=== PATIENT | male | born 1965 | race Caucasian/White ===

== ENCOUNTER 2017-12-15 12:40 | Inpatient (IN) | payer MEDICARE ==
--- NOTE | 2017-12-15 12:51 | ED ---
Complex/Multi-Sys Presentation - HPI Summary HPI Summary: This is jennifer Quiroz documenting for attending Calixto Jimenez MD. Patient is a 52 y/o M w/ a multitude of complaints and states he is "a mess". He states he wants to get his right leg amputated but he is unable to get cleared for surgery by his PCP. He has had a below knee left side amputation and reports an infection from this area, "up to his face". Patient claims he has been dealing with this infection for "2-3 years". He notes bruising and swelling on his left foot stub. He has not seen the wound clinic. He states left abdominal region is "puffy". He states his eyes and back are, "messed up". He wants revision surgery on his left foot stub and claims he has trouble turning to the left. On triage, pain and is denied and nothing is noted to aggravate/alleviate Sx. He extensively ranted against his PCP and the cost of healthcare. - History Of Current Complaint Chief Complaint: EDGeneral Time Seen by Provider: 12/15/17 12:47 Hx Obtained From: Patient Onset/Duration: Lasting Weeks - infection from his left stub "up to his face" has been present for "2-3 years", Still Present Timing: Constant Severity Currently: None - pain is denied on triage Aggravating Factor(s): nothing Alleviating Factor(s): nothing Associated Signs And Symptoms: Positive: Other - Below knee left side amputation. Infection from left foot stub, "up to his face". Bruising and swelling on his left foot stub. Left abdominal region is "puffy". Eyes and back are, "messed up". Trouble turning to the left. - Allergies/Home Medications Allergies/Adverse Reactions: Allergies Allergy/AdvReac Type Severity Reaction Status Date / Time No Known Allergies Allergy Verified 12/15/17 12:56 Home Medications: Home Medications Atorvastatin Calcium [Lipitor] 20 mg PO DAILY 12/15/17 [History Confirmed ] Lisinopril 20 mg PO DAILY 12/15/17 [History Confirmed 12/15/17] Metformin HCl 1,000 mg PO BID 12/15/17 [History Confirmed 12/15/17] Oxycodone HCl 5 mg PO Q8HR 12/15/17 [History Confirmed 12/15/17] PMH/Surg Hx/FS Hx/Imm Hx Endocrine/Hematology History: Reports: Hx Diabetes Cardiovascular History: Reports: Hx Hypertension Respiratory History: Reports: Hx Chronic Obstructive Pulmonary Disease (COPD), Hx Sleep Apnea - ?? History: Reports: Other Problems/Disorders - PROBLEMS WITH KIDNEYS AFTER HAVING LEFT FOOT AMPUTATION Musculoskeletal History: Reports: Hx Arthritis - BACK, Other Musculoskeletal History - HAND SORENESS Sensory History: Denies: Hx Contacts or Glasses, Hx Hearing Aid Opthamlomology History: Denies: Hx Contacts or Glasses - Surgical History Surgery Procedure, Year, and Place: 2011-LEFT FOOT AMPUTATION-[facility]. DENTAL SURGERY A CHILD Hx Anesthesia Reactions: Yes - UNABLE TO WALK FOR 3 DAYS AFTER SURGERY A CHILD. NO PROB. IN 2011 Infectious Disease History: No Infectious Disease History: Denies: Traveled Outside the [place] in Last 30 Days - Family History Known Family History: Negative: Blood Disorder - Social History Lives: Alone Substance Use Type: Reports: Marijuana Review of Systems Positive: Other - Eyes are "messed up" Positive: Other - Left side abdominal region is "puffy" Positive: Other - Infection from left foot stub, "up to his face". Bruising and swelling on his left foot stub. Back is "messed up". Trouble turning to the left. All Other Systems Reviewed And Are Negative: Yes Physical Exam - Summary Physical Exam Summary: Appearance: The patient is morbidly obese in no acute distress and in no acute pain. Skin: The skin is warm and dry and skin color reflects adequate perfusion. Necrotic and open areas on left stub. HEENT: The head is normocephalic and atraumatic. The pupils are equal and reactive. The conjunctivae are clear and without drainage. Nares are patent and without drainage. Mouth reveals moist mucous membranes and the throat is without erythema and exudate. The external ears are intact. The ear canals are patent and without drainage. The tympanic membranes are intact. Neck: The neck is supple with full range of motion and non-tender. There are no carotid bruits. There is no neck vein distension. Respiratory: Chest is non-tender. Lungs are clear to auscultation and breath sounds are symmetrical and equal. Cardiovascular: Heart is regular rate and rhythm. There is no murmur or rub auscultated. Pulses are symmetrical and equal. Swelling and weeping areas of right foot. Abdomen: The abdomen is soft and non-tender. There are normal bowel sounds heard in all four quadrants and there is no organomegaly palpated. Musculoskeletal: There is no back tenderness noted. Extremities are non-tender with full range of motion. There is good capillary refill. There is no calf tenderness elicited. Patient is status post below knee left amputation. Swelling , erythematous, and weeping areas of right foot. Erythematous and open, weeping areas on left side of abdomen. Neurological: Patient is alert and oriented to person, place and time. The patient has symmetrical motor strength in all four extremities. Cranial nerves are grossly intact. Deep tendon reflexes are symmetrical and equal in all four extremities. Psychiatric: The patient has an appropriate affect and does not exhibit any anxiety or depression. Triage Information Reviewed: Yes Vital Signs On Initial Exam: Initial Vitals Temp Pulse Resp BP Pulse Ox 97.8 F 95 18 158/113 82 12/15/17 12:43 12/15/17 12:43 12/15/17 12:43 12/15/17 12:43 12/15/17 12:43 Vital Signs Reviewed: Yes Diagnostics - Vital Signs Vital Signs Temp Pulse Resp BP Pulse Ox 12/15/17 12:43 97.8 F 95 18 158/113 82 - Laboratory Result Diagrams: 12/15/17 13:28 12/15/17 13:28 Lab Statement: Any lab studies that have been ordered have been reviewed, and results considered in the medical decision making process. - Radiology CXR Xray Interpretation: No Acute Changes Radiology Interpretation Completed By: Radiologist - No active cardiopulmonary disease is noted. Cardiomegaly is noted. This report was reviewed by ED physician. Left Ankle X-ray Xray Interpretation: Positive (See Comments) Radiology Interpretation Completed By: Radiologist - Postoperative changes with amputation. Soft tissues swelling is noted at the amputation sites. Heterotropic ossification is noted unchanged from March 17, 2015. This report was reviewed by ED physician. Right Foot X-ray Xray Interpretation: Positive (See Comments) Radiology Interpretation Completed By: Radiologist - Osteopenia with no evidence of focal osteopenia. Postoperative changes at the great toe with amputation of the third digit. This report was reviewed by ED physician. Complex Multi-Symp Course/Dx Course Of Treatment: Mr. Xavier presented to the emergency department with clear medical problems. He has infection in the stump of his left leg and in his right foot. He possibly has an infection in the skin on the left side of his abdomen. His labs are remarkable only for a left shift with an ANC of 8. It's unclear whether he is able to take care of himself at home. He lives alone and tells me that he basically just lays in bed all day getting up only to go to the bathroom. He says he has not been eating except when his neighbor brings over some food. I asked the hospitalist to evaluate him for admission. - Diagnoses Provider Diagnoses: Cellulitis - Physician Notifications Discussed Care Of Patient With: Adolph Marlow Time Discussed With Above Provider: 14:47 Instructed by Provider To: Other - Dr. Marlow was called at 14:47 to discuss patient's case. Dr. Marlow will come to ED to see patient and further consult on case. 15:14 -- Patient's case was discussed. Dr. Marlow will see patient and make decision to admit 15:45 -- Dr. Marlow accepts patient for admission to hospital. Discharge - Sign-Out/Discharge Documenting (check all that apply): Patient Departure - admit - Discharge Plan Condition: Good Disposition: ADMITTED TO [facility] - Billing Disposition and Condition Condition: GOOD Disposition: Admitted to [facility]
[2017-12-15 13:35] LABS: ABS Basophils 0.1 10^3/ul (0-0.2); ABS Eosinophils 0 10^3/ul (0-0.6); ABS Lymphocytes 0.5 10^3/ul (1.0-4.8); ABS Monocytes 0.8 10^3/ul (0-0.8); ABS Neutrophils 8.1 10^3/ul (1.5-7.7); ABS Nucleated RBC 0 10^3/ul; Eosinophil % 0.4 % (0-6); Hematocrit 46 % (42-52); Hemoglobin 14.6 g/dl (14.0-18.0); Lymphocyte % 5.6 % (25-47); Mean Corpuscular HGB Conc 32 g/dl (31-36); Mean Corpuscular Hemoglobin 29 pg (27-31); Mean Corpuscular Volume 92 fL (80-94); Mean Platelet Volume 8.1 um3 (7.4-10.4); Nucleated Red Blood Cells % 0; Platelet Count 224 10^3/ul (150-450); Red Blood Count 5.03 10^6/ul (4.00-5.40); Red Cell Distribution Width 18 % (10.5-15); White Blood Count 9.5 10^3/ul (3.5-10.8)
[2017-12-15 13:45] LABS: INR 1.08 (0.77-1.02)
[2017-12-15 13:52] LABS: EGFR Non-African American 83.9 (>60)
--- NOTE | 2017-12-15 14:11 | RAD ---
Indication: Shortness of breath. Single frontal view of the chest performed at 1316 hours was reviewed. Comparison is made with previous exam dated March 22, 2015. No mediastinal shift is noted. Cardiomegaly is noted. Prominent pulmonary arteries is noted which is unchanged from previous exam. IMPRESSION: NO ACTIVE CARDIOPULMONARY DISEASE IS NOTED. CARDIOMEGALY IS NOTED.
--- NOTE | 2017-12-15 14:13 | RAD ---
Indication: Evaluate for osteomyelitis. 2 views of left ankle demonstrates osteopenia. Presumed amputation of the tibial talar joint is noted. Soft tissue swelling is noted at the stump. Heterotopic ossification is noted. Overall appearance appears to be similar to that noted on March 17, 2015. IMPRESSION: Postoperative changes with amputation. Soft tissue swelling is noted at the amputation site. Heterotopic ossification is noted unchanged from March 17, 2015.
--- NOTE | 2017-12-15 14:16 | RAD ---
Indication: Osteomyelitis. 3 views of the right foot demonstrates osteopenia. There is amputation of the distal phalanx of the great toe, amputation of the third phalanx. No focal osteopenia is noted. There may be some lateral displacement of the second proximal phalanx. IMPRESSION: Osteopenia with no evidence of focal osteopenia. Postoperative changes at the great toe with amputation of the third digit.
[2017-12-15] MEDS ORDERED: Morphine INJ* 2 MG/ML 1 ML SYRINGE (TWO MG - NEW SYRINGE VERSION) IV PRN (16:08)
[2017-12-15] MEDS ORDERED: Ondansetron INJ* 2 MG/ML VIAL IV PRN (16:08)
[2017-12-15] MEDS ORDERED: Acetaminophen TAB* 325 MG PO PRN (16:08)
[2017-12-15] MEDS ORDERED: Vancomycin(*) 2,000 MG in NS 0.9% 500 ML* 500 ML IVPB ONE (16:12)
[2017-12-15] MEDS ORDERED: NS 0.9% 1000 ML* 1,000 ML IV SCH (16:15)
[2017-12-15] MEDS ORDERED: Vancomycin per Pharmacy* NOTE FOLLOW UP SCH (17:00)
[2017-12-15] MEDS: Aspirin 81 mg CHEW TAB* 81 MG TAB.CHEW PO SCH (17:57)
[2017-12-15] MEDS: Losartan TAB* 25 MG PO SCH (17:57)
[2017-12-15] MEDS ORDERED: Furosemide IV* 10 MG/ML VIAL (40 MG) IV ONE (20:00)
[2017-12-15] MEDS: metFORMIN* 1,000 MG TAB PO SCH (21:10)
[2017-12-15] MEDS: Heparin VIAL(*) 5000 UNITS/ML VIAL (FIVE THOUSAND) SUBCUT SCH (21:12)
[2017-12-15] MEDS: oxyCODONE TAB* 5 MG TAB PO PRN (21:18)
[2017-12-16] MEDS: Nystatin TOP POWDER* 15 GM BTL TOPICAL SCH ×4 (00:49→22:21)
[2017-12-16] MEDS: Vancomycin(*) 1,000 MG in NS 0.9% 250 ML* 250 ML IVPB SCH ×4 (02:55→19:41)
[2017-12-16] MEDS: Heparin VIAL(*) 5000 UNITS/ML VIAL (FIVE THOUSAND) SUBCUT SCH ×3 (05:55→22:22)
[2017-12-16] MEDS: Losartan TAB* 25 MG PO SCH (09:00)
[2017-12-16] MEDS: Atorvastatin* 20 MG TAB PO SCH (09:00)
[2017-12-16] MEDS: Aspirin 81 mg CHEW TAB* 81 MG TAB.CHEW PO SCH (09:00)
[2017-12-16] MEDS: metFORMIN* 1,000 MG TAB PO SCH ×2 (09:00→22:22)
--- NOTE | 2017-12-16 13:39 | CONS ---
CC: Dr. Kyle Rico, [facility] * CONSULTATION REPORT: DATE OF CONSULT: 12/16/17 REFERRING PROVIDER: Dr. Adolph Marlow. REASON FOR CONSULTATION: Chronic left lower extremity amputation site ulceration and superficial abrasions to the right foot. HISTORY OF PRESENT ILLNESS: Mr. Jose Xavier is a 52-year-old gentleman who is morbidly obese with BMI of 70, who has been hospitalized several times in the last 5 to 6 years with lower extremity infection. He had seen Dr. Quintero in 2011 where he underwent a Syme's amputation of the left foot secondary to apparent osteomyelitis. It should be noted that he had ABIs at that time, which showed normal values as well as normal waveforms in the foot. In addition, about a year later he underwent amputation of the distal portion of his right great toe as well as the right third toe for osteomyelitis and this was subsequently healed. He states he has been having chronic ulceration along the lateral aspect of the stump of the left lower extremity. He does have a prosthesis which he uses to ambulate minimally around the house but he has not been able to wear this over the past several months due to swelling and redness in the leg. He presented to the emergency room yesterday with complaints of inability to care for himself. He does live alone, does have a neighbor who brings food at times. He has an uxt-cl-evben wheelchair but he apparently does not get out of the home much. He denies fever, shakes, or chills. PAST MEDICAL HISTORY: 1. Morbid obesity with a BMI of 70. 2. Hypertension. 3. Mwg-nqggjuw-dwnpkxfug diabetes. MEDICATIONS: At home include: 1. Oxycodone. 2. Metformin. 3. Lisinopril. 4. Lipitor. SOCIAL HISTORY: He lives alone. He denies use of alcohol. He does use marijuana occasionally. PHYSICAL EXAM: He is a morbidly obese male, appears to be in no apparent distress. In the left lower extremity, he has a distal leg amputation stump. There is chronic hypertrophied skin mainly along the central and lateral aspects and there were some cracked and dry skin with an opening without evidence of tracking or purulence. There is mild erythema in the area and the both lower extremities are swollen. In the right foot, there is the healed amputation sites on the first and third toes and some superficial abrasion on the dorsum of the foot without signs of infection. Likewise, there is a small area of irritation over the great toe amputation site without signs of infection, tracking, abscess, or cellulitis. I do not appreciate palpable pulses in the right foot. DIAGNOSTIC STUDIES: X-ray on the right foot showed the amputation sites without evidence of osteomyelitis or subcutaneous air. Likewise, the left lower extremity site showed osteopenia with some heterotopic calcification of the soft tissue but no evidence of osteomyelitis, subcutaneous gas, or other acute abnormality. IMPRESSION: 1. Morbid obesity with medical problems as above. 2. History of amputations on both lower extremities including a Syme's amputation of the left foot. Apparently, he has had a chronic nonhealing ulceration with hypertrophy and worsening of the skin disease over the past several years. He was seeing Dr. Quintero in the past but he has not seen him for the last 2 years and I do not have these records. PLAN: 1. He has been placed on vancomycin as swabs taken from the left foot show MRSA. There does not appear to be abscess or undrained fluid collection on either lower extremity at this point that would require operative debridement. Obviously, the chronic open ulceration on the amputation site of the left leg is difficult to heal and certainly he should not wear his prosthesis at this point; however, I am not certain how much he has been using or ambulating in the last year or so. 2. I will write wound care orders for both the left and the right lower extremity. 3. I discussed his care with Dr. Quintero tomorrow. Thank you very much for this consultation. [id number]/[facility] #: [id number] MELISSA
[2017-12-16 18:50] LABS: Urine Appearance Cloudy; Urine Blood 3+ (Negative); Urine Color Amber; Urine Ketones Negative (Negative); Urine Protein 2+(100 mg/dL) (Negative); Urine Red Blood Cell 3+(>10/hpf) (Absent); Urine Specific Gravity 1.023 (1.010-1.030); Urine Urobilinogen Positive (Negative); Urine White Blood Cell Trace(0-5/hpf) (Absent)
[2017-12-16] MEDS ORDERED: Vancomycin Trough Check NOTE FOLLOW UP ONE (19:30)
[2017-12-16 19:44] LABS: ABS Basophils 0 10^3/ul (0-0.2); ABS Eosinophils 0.1 10^3/ul (0-0.6); ABS Lymphocytes 0.6 10^3/ul (1.0-4.8); ABS Monocytes 0.7 10^3/ul (0-0.8); ABS Neutrophils 5.3 10^3/ul (1.5-7.7); ABS Nucleated RBC 0 10^3/ul; Eosinophil % 1.9 % (0-6); Hematocrit 46 % (42-52); Hemoglobin 14.5 g/dl (14.0-18.0); Lymphocyte % 9.4 % (25-47); Mean Corpuscular HGB Conc 32 g/dl (31-36); Mean Corpuscular Hemoglobin 29 pg (27-31); Mean Corpuscular Volume 92 fL (80-94); Mean Platelet Volume 8.2 um3 (7.4-10.4); Nucleated Red Blood Cells % 0; Platelet Count 165 10^3/ul (150-450); Red Blood Count 5.01 10^6/ul (4.00-5.40); Red Cell Distribution Width 18 % (10.5-15); White Blood Count 6.8 10^3/ul (3.5-10.8)
[2017-12-17] MEDS: Vancomycin(*) 1,000 MG in NS 0.9% 250 ML* 250 ML IVPB SCH ×4 (02:10→20:15)
[2017-12-17] MEDS: Heparin VIAL(*) 5000 UNITS/ML VIAL (FIVE THOUSAND) SUBCUT SCH ×3 (05:01→20:19)
[2017-12-17] MEDS: Losartan TAB* 25 MG PO SCH (09:47)
[2017-12-17] MEDS: Atorvastatin* 20 MG TAB PO SCH (09:47)
[2017-12-17] MEDS: metFORMIN* 1,000 MG TAB PO SCH ×2 (09:48→20:15)
[2017-12-17] MEDS: Aspirin 81 mg CHEW TAB* 81 MG TAB.CHEW PO SCH (09:48)
[2017-12-17] MEDS: Nystatin TOP POWDER* 15 GM BTL TOPICAL SCH ×3 (09:50→20:17)
--- NOTE | 2017-12-17 14:03 | CONS ---
CONSULTATION REPORT: DATE OF CONSULT: 12/17/17 REQUESTING PHYSICIAN: Dr. Marlow. CONSULTING SERVICE: Infectious Disease. REASON FOR CONSULTATION: Left ankle ulcer. IMPRESSION: 1. History of left ankle Syme surgery with a chronic non-pressure related ulcer , surrounding cellulitis, and the wound culture is growing Staphylococcus aureus , morganella, and klebsiella. The PCR is positive for MRSA. I think staph is the primary pathogen here, as he is improving on vancomycin alone. 2. Morbid obesity. 3. Diabetes, insulin-dependent. RECOMMENDATION: We will continue vancomycin to cover the soft tissue component of the infection. There is not significant drainage or fluctuance with regard to superficial abscess. The ulcer is not over a bony prominence. I think Surgery or Orthopedics is going to evaluate his amputation site as well. HISTORY OF PRESENT ILLNESS: This is a 52-year-old man with super morbid obesity and a history of left foot amputation in 2011, which he had tolerated well, but subsequently developed an ulceration over this come and go. Over the last 2 weeks, he has had increasing edema in the left leg, which he believes contributed to difficulty wearing his prosthesis and ulcer reopening. He had some redness and drainage there. He was feeling malaise, so he came to the hospital. He had no fever, he had no leukocytosis, he had a swab of the cellulitic wound that came back with results as above. He is on vancomycin tolerating that well. The erythema has largely resolved. He has almost no drainage. He is having diuretic therapy and improvement in the swelling in his leg. PAST MEDICAL HISTORY: 1. Super morbid obesity. 2. Insulin-dependent diabetes. 3. History of foot wounds and left foot osteomyelitis, status post Syme surgery on the left in 2011, and partial amputation of the right great toe and disarticulation of the right third toe in 2012. MEDICATIONS: 1. Tylenol. 2. Aspirin. 3. Lipitor. 4. Heparin subcutaneous injection. 5. Losartan. 6. Metformin. 7. Vancomycin 1 g every 6 hours. ALLERGIES: No known drug allergies. FAMILY HISTORY: No recurrent infections. SOCIAL HISTORY: Lives in [place], has no travel or sick contacts. REVIEW OF SYSTEMS: All negative except as noted above in the history of present illness. PHYSICAL EXAM: Vital Signs: Temperature 36.4, heart rate 80, respiratory rate 18, blood pressure 114/68, oxygen saturation 90% on 4 L. In general, he is awake, not in distress. Neurologic: He is oriented x3, follows all commands. HEENT: There is no conjunctival hemorrhage. Oropharynx without lesions. Neck : Neck is supple without mass. Heart has regular rate rhythm without murmurs, rubs, or gallops. Lungs are clear to auscultation bilaterally. Abdomen: Soft, nontender, and nondistended. There are bowel sounds present. Skin: There is no rash or splinter hemorrhage. Musculoskeletal: Left foot is surgically absent. The amputation site is well healed. There is a more proximal 2.5 cm ulceration with underlying granulation tissue, no surrounding erythema. DIAGNOSTIC STUDIES/LAB DATA: White blood cell count 6, hemoglobin 14, platelets 165; creatinine 0.9; CRP was 11. Please see impression and recommendations outlined above. Thank you for asking me to see Mr. Xavier in consultation. [id number]/[facility] #: [id number] MTDD
[2017-12-17] MEDS ORDERED: Furosemide IV* 10 MG/ML VIAL (40 MG) IV ONE (16:09)
--- NOTE | 2017-12-17 16:17 | PN ---
Subjective Date of Service: 12/16/17 Interval History: patient is feeling a bit better than yesterday. medellin in place, at his request to manage his diuresis low sodium diet ordered wound care evaluation appreciated --> patient should follow at the wound [facility]ter after discharge. He is tolerating his antibiotics well. Cellulitis surrounding his lower extremity wound sis decreased. Orbits are still itchy - he rubs his eyes frequently. Will discuss case with Dr. Quintero - orthopedic surgeon who did his LLE amputation. Family History: Unchanged from Admission Social History: Unchanged from Admission Past Medical History: Unchanged from Admission Objective Active Medications: . Acetaminophen (Tylenol Tab*) 650 mg PO Q4H PRN PRN Reason: FEVER/PAIN Aspirin (Aspirin 81 Mg Chew Tab*) 81 mg PO DAILY [facility] Last Admin: 12/17/17 09:48 Dose: 81 mg Atorvastatin Calcium (Lipitor*) 20 mg PO DAILY [facility] Last Admin: 12/17/17 09:47 Dose: 20 mg Furosemide (Lasix Iv*) 40 mg IV ONCE ONE Stop: 12/17/17 16:10 Furosemide (Lasix Iv*) 40 mg IV DAILY [facility] Heparin Sodium (Porcine) (Heparin Vial(*)) 5,000 units SUBCUT Q8HR [facility] Last Admin: 12/17/17 13:00 Dose: Not Given Vancomycin HCl 1,000 mg/ (Sodium Chloride) 250 mls @ 166.667 mls/hr IVPB Q6H [facility] Last Admin: 12/17/17 15:28 Dose: 166.667 mls/hr Losartan Potassium (Cozaar Tab*) 75 mg PO DAILY [facility] Last Admin: 12/17/17 09:47 Dose: 75 mg Metformin HCl (Glucophage*) 1,000 mg PO BID [facility] Last Admin: 12/17/17 09:48 Dose: 1,000 mg Morphine Sulfate (Morphine Inj ((Syringe))*) 2 mg IV Q4H PRN PRN Reason: PAIN - MILD Nystatin (Nystatin Top Powder*) 1 applic TOPICAL TID [facility] Last Admin: 12/17/17 09:50 Dose: 1 applic Ondansetron HCl (Zofran Inj*) 4 mg IV Q4H PRN PRN Reason: NAUSEA/VOMITING Oxycodone HCl (Roxycodone Tab*) 5 mg PO TID PRN PRN Reason: PAIN Last Admin: 12/15/17 21:18 Dose: 5 mg Pharmacy Consult (Vancomycin Per Pharmacy*) 1 note FOLLOW UP .VANC PER PHARMACY [facility] Pharmacy Profile Note (Vancomycin Trough Check) 1 note FOLLOW UP 0800 ONE Stop: 12/18/17 08:01 . Vital Signs - 8 hr 12/17/17 11:00 Temperature 98.3 F Pulse Rate 91 Respiratory 20 Rate Blood Pressure 131/87 (mmHg) O2 Sat by Pulse 86 Oximetry Oxygen Devices in Use Now: Nasal Cannula Appearance: morbidly obese; no distress Eyes: No Scleral Icterus Ears/Nose/Mouth/Throat: Clear Oropharnyx Neck: Trachea Midline Respiratory: Symmetrical Chest Expansion and Respiratory Effort Cardiovascular: NL Sounds; No Murmurs; No JVD Abdominal: NL Sounds; No Tenderness; No Distention Lymphatic: No Cervical Adenopathy Extremities: - - left foot amputation with wound on stump. R foot with superficially infected wounds and surrounding cellulitis improving. Skin: - - multiple tatoos Neurological: Alert and Oriented x 3 Lines/Tubes/Other Access: Clean, Dry and Intact Peripheral IV Nutrition: Taking PO's Result Diagrams: 12/16/17 19:28 12/16/17 19:28 Microbiology and Other Data: Microbiology 12/15/17 13:35 Aerobic Blood Culture - Preliminary Blood Venous No Growth Day 2 Anaerobic Blood Culture - Preliminary No Growth Day 2 12/15/17 13:28 Aerobic Blood Culture - Preliminary Blood Venous No Growth Day 2 Anaerobic Blood Culture - Preliminary No Growth Day 2 12/15/17 13:28 Skin and Soft Tissue MRSA/MSSA (PCR - Final Foot Left Mrsa Positive S.aureus Positive Gram Stain - Final Wound Culture - Preliminary Staphylococcus Aureus Morganella Morganii Klebsiella Oxytoca Assess/Plan/Problems-Billing . Assessment: 52 yo man with MRSA-infected lower extremity ulceration as well as increased lower extremity edema and uncontrolled hypertension. - Patient Problems (1) Infection of wound due to methicillin resistant Staphylococcus aureus (MRSA) Current Visit: Yes Status: Acute Priority: High Code(s): A49.02 - METHICILLIN RESIS STAPH INFECTION, UNSP SITE Comment: - b/l lower extremity wounds - Vancomycin by pharmacy protocol - Surgery (and ortho) consults are appreciated => no surgical intervention at this time (2) Bilateral lower extremity edema Current Visit: Yes Status: Acute Priority: High Code(s): R60.0 - LOCALIZED EDEMA Comment: - Lasix 40 mg IV daily - I/O - low salt diet; nutrition consult (3) Hypertension Current Visit: Yes Status: Acute Priority: High Code(s): I10 - ESSENTIAL ( PRIMARY) HYPERTENSION Comment: - increase ARB dose; add additional agent. IV lasix (4) Morbid obesity with BMI of 70 and over, adult Current Visit: Yes Status: Acute Priority: High Code(s): E66.01 - MORBID ( SEVERE) OBESITY DUE TO EXCESS CALORIES; Z68.45 - BODY MASS INDEX (BMI) 70 OR GREATER, ADULT Comment: - nutrition consult - SW consult
--- NOTE | 2017-12-17 16:26 | PN ---
Subjective Date of Service: 12/17/17 Interval History: . patient is about the same , though he complains "you are not doing anything for me" discussed the various issues being managed and he then seemed satisfied. SW interventions underway wrt insurance and possible KEITH. IV antibiotics continuing IV diuresis going well Ortho & general surgery consults appreciated discussed case with [facility] hospice care sales consultant, Dr. Villalpando, as well --> no change to current treatment. . Family History: Unchanged from Admission Social History: Unchanged from Admission Past Medical History: Unchanged from Admission Objective Active Medications: . Acetaminophen (Tylenol Tab*) 650 mg PO Q4H PRN PRN Reason: FEVER/PAIN Aspirin (Aspirin 81 Mg Chew Tab*) 81 mg PO DAILY [facility] Last Admin: 12/17/17 09:48 Dose: 81 mg Atorvastatin Calcium (Lipitor*) 20 mg PO DAILY [facility] Last Admin: 12/17/17 09:47 Dose: 20 mg Furosemide (Lasix Iv*) 40 mg IV DAILY [facility] Heparin Sodium (Porcine) (Heparin Vial(*)) 5,000 units SUBCUT Q8HR [facility] Last Admin: 12/17/17 13:00 Dose: Not Given Vancomycin HCl 1,000 mg/ (Sodium Chloride) 250 mls @ 166.667 mls/hr IVPB Q6H [facility] Last Admin: 12/17/17 15:28 Dose: 166.667 mls/hr Losartan Potassium (Cozaar Tab*) 75 mg PO DAILY [facility] Last Admin: 12/17/17 09:47 Dose: 75 mg Metformin HCl (Glucophage*) 1,000 mg PO BID [facility] Last Admin: 12/17/17 09:48 Dose: 1,000 mg Morphine Sulfate (Morphine Inj ((Syringe))*) 2 mg IV Q4H PRN PRN Reason: PAIN - MILD Nystatin (Nystatin Top Powder*) 1 applic TOPICAL TID [facility] Last Admin: 12/17/17 16:16 Dose: Not Given Ondansetron HCl (Zofran Inj*) 4 mg IV Q4H PRN PRN Reason: NAUSEA/VOMITING Oxycodone HCl (Roxycodone Tab*) 5 mg PO TID PRN PRN Reason: PAIN Last Admin: 12/15/17 21:18 Dose: 5 mg Pharmacy Consult (Vancomycin Per Pharmacy*) 1 note FOLLOW UP .VANC PER PHARMACY [facility] Pharmacy Profile Note (Vancomycin Trough Check) 1 note FOLLOW UP 0800 ONE Stop: 12/18/17 08:01 . Vital Signs - 8 hr 12/17/17 12/17/17 11:00 15:16 Temperature 98.3 F 97.8 F Pulse Rate 91 88 Respiratory 20 20 Rate Blood Pressure 131/87 133/87 (mmHg) O2 Sat by Pulse 86 98 Oximetry Oxygen Devices in Use Now: Nasal Cannula Appearance: NAd; morbid obesity; dishevelled Eyes: No Scleral Icterus Ears/Nose/Mouth/Throat: Clear Oropharnyx, - - poor oral hygiene Neck: NL Appearance and Movements; NL JVP, - - landmarks obscured by obesity Respiratory: Symmetrical Chest Expansion and Respiratory Effort Cardiovascular: NL Sounds; No Murmurs; No JVD Abdominal: - - MO Lymphatic: No Cervical Adenopathy Extremities: - - b/l le edema noted Skin: - - b/l lower extremity ulcerations - one on left amputation stump, the other on his R foot (dorsum) Neurological: Alert and Oriented x 3 Lines/Tubes/Other Access: Clean, Dry and Intact Painting, Clean, Dry and Intact Peripheral IV Nutrition: Taking PO's Result Diagrams: 12/16/17 19:28 12/16/17 19:28 Microbiology and Other Data: Microbiology 12/15/17 13:35 Aerobic Blood Culture - Preliminary Blood Venous No Growth Day 2 Anaerobic Blood Culture - Preliminary No Growth Day 2 12/15/17 13:28 Aerobic Blood Culture - Preliminary Blood Venous No Growth Day 2 Anaerobic Blood Culture - Preliminary No Growth Day 2 12/15/17 13:28 Skin and Soft Tissue MRSA/MSSA (PCR - Final Foot Left Mrsa Positive S.aureus Positive Gram Stain - Final Wound Culture - Preliminary Staphylococcus Aureus Morganella Morganii Klebsiella Oxytoca Assess/Plan/Problems-Billing . Assessment: 52 yo man with MRSA-infected lower extremity ulceration as well as increased lower extremity edema and uncontrolled hypertension. - Patient Problems (1) Infection of wound due to methicillin resistant Staphylococcus aureus (MRSA) Current Visit: Yes Status: Acute Priority: High Code(s): A49.02 - METHICILLIN RESIS STAPH INFECTION, UNSP SITE Comment: - b/l lower extremity wounds - Vancomycin by pharmacy protocol - Surgery (and ortho) consults are appreciated => no surgical intervention at this time (2) Bilateral lower extremity edema Current Visit: Yes Status: Acute Priority: High Code(s): R60.0 - LOCALIZED EDEMA Comment: - Lasix 40 mg IV daily - I/O - low salt diet; nutrition consult (3) Hypertension Current Visit: Yes Status: Acute Priority: High Code(s): I10 - ESSENTIAL ( PRIMARY) HYPERTENSION Comment: - increase ARB dose; add additional agent. IV lasix (4) Morbid obesity with BMI of 70 and over, adult Current Visit: Yes Status: Acute Priority: High Code(s): E66.01 - MORBID ( SEVERE) OBESITY DUE TO EXCESS CALORIES; Z68.45 - BODY MASS INDEX (BMI) 70 OR GREATER, ADULT Comment: - nutrition consult - SW consult
[2017-12-17] MEDS ORDERED: amLODIPine TAB* 5 MG PO ONE (16:28)
--- NOTE | 2017-12-17 18:18 | HP ---
CC: Dr. Kyle Rico * HISTORY AND PHYSICAL: DATE OF ADMISSION: 12/15/17. PRIMARY CARE PHYSICIAN: Dr. Kyle Rico, [facility]. CHIEF COMPLAINT: Multiple - general malaise - lower extremity swelling - concern for leg infection - face puffiness - others. HISTORY OF PRESENT ILLNESS: Mr. Xavier is a unfortunate 52-year-old gentleman with a multitude of medical problems and complaints. He comes to the hospital because of inability to care for himself and because he is "a mess." The patient is chiefly complaining about his right leg, which has seemingly superficial wounds, but he is looking for amputation. He complains that he is not able to get to surgery because of his medical clearance difficulties relating to his sleep apnea and pulmonary conditions. The patient seems frustrated by his primary care doctor in this respect. He does not have specific reasons for being upset. The patient also states that his "face is puffy." The patient is very obese with a BMI now of approximately 70. The patient claims that his lower extremity infections have been troubling him for at least 2 or 3 years. He has a history of lower left leg amputation and multiple toe amputations on the right foot. The patient points out bruising and swelling of his left foot stub. The patient has not been to the Wound Clinic. The patient is stating difficulty with visual acuity. He says this is a longstanding problem. He had not seen an plant care worker. The patient denies any fevers. He did have a swab with the cellulitic wound and those results are pending. He was seen in the emergency room and stated he is unable to take care of himself and he is being referred for admission for cellulitis surrounding his lower extremity wound as well as increased lower extremity edema and also a social work consultation for his inability to care for himself. PAST MEDICAL HISTORY: 1. Super morbid obesity with a BMI of 70. 2. Hypertension. 3. Abp-jcytysp-waqmfuaxc diabetes. 4. Hyperlipidemia. 5. COPD. 6. Sleep apnea - noncompliant with CPAP. PAST SURGICAL HISTORY: 1. History of left lower extremity amputation - BKA. 2. Right multiple toe amputation. OUTPATIENT MEDICATIONS: 1. Lisinopril 20 mg by mouth daily. 2. Lipitor 20 mg by mouth daily. 3. Metformin 1000 mg by mouth twice daily. 4. Oxycodone 5 mg by mouth q.8 hours p.r.n. pain. FAMILY HISTORY: Reviewed, but noncontributory based on the current presentation. SOCIAL HISTORY: The patient is on disability. He is a retired wrestler. He lives alone in [place]. He denies use of alcohol, but does smoke marijuana. He is single. He has friends, who bring him food. His emergency contact is: None (no next of kin noted). REVIEW OF SYSTEMS: A review of 14 systems was accomplished at the bedside. This is largely negative except for the pertinent positives that is mentioned above in the HPI and past medical history. PHYSICAL EXAMINATION ON ADMISSION GENERAL APPEARANCE: Middle-aged man, appears older than stated age, in no apparent distress. He is super morbidly obese. He is lying in an emergency room gurney. VITAL SIGNS: Temperature 97.8 degrees Fahrenheit, pulse 95, respirations 18, oxygen saturation 90% to 93% on 3 liters, blood pressure 140s to 150s/low 100s. HEENT: Exam is significant for erythemic orbital areas secondary to him rubbing his eyes. He states they itch. There is no scleral injection. No purulent drainage. Nares are patent. Oropharynx is clear without posterior pharyngeal erythema or exudate. He does have poor dental hygiene, multiple missing teeth and carries that are obvious. No obvious oral abscesses. LYMPH: No adenopathy appreciated. NECK: Supple. No elevated jugular venous distention, but his landmarks are obscured. LUNGS: Clear anteriorly and posteriorly. HEART: Distant sounds, but normal S1 and S2 appreciated. ABDOMEN: Obese and nontender. EXTREMITIES: Lower extremity is characterized by massive edema and a distal leg amputation stump on the left with chronic hypertrophy of the skin along the center and lateral aspects of the stump, some of which are cracked with dry skin and opening without evidence of tracking or purulence. There is mild erythema surrounding the area described and both lower extremities are swollen. On his right foot, there is a healed amputation on the first and third toes and some superficial abrasions on the back side of his foot without evidence of active infection. Again, there is no abscess or cellulitis evidence on the right foot. Pulses are diminished. NEURO: No focal motor deficiencies. He does have diminished sensation in his lower extremities owing to his longstanding diabetes and peripheral neuropathy. PSYCH: Normal affect. No acute anxiety or depression. SKIN: Scattered tattoos including tattoo with vulgarity on his left lateral arm , scattered, excoriated lesions. ADMISSION DATA: Sodium 139, potassium 4.4, chloride 100, bicarb 32, anion gap 7 , BUN 19, creatinine 0.94, glucose 172 (elevated). BUN to creatinine ratio is elevated at 20.2. Lactic acid normal at 1.6. Calcium 8.8. Total bilirubin 1.2. AST 13, ALT 12, alk phos 139. Troponin 0.04 (indeterminant). CRP elevated 11.68, BNP elevated 918. Total protein 6.8, albumin 3.5. CBC is generally normal with white blood cell count of 9.5, hemoglobin 14.6, platelets 224. His coagulation parameters are significant for an INR that is modestly elevated at 1.8. Urinalysis is abnormal in many respects including 2+ protein and 3+ blood on dip as well as 3+ rbc's and 1+ bacteria, and yeast present. Chest x-ray showed no pulmonary parenchymal disease, and no active disease in his thorax. It did indicate cardiomegaly. His ankle x-ray on the right showed postoperative changes with amputations as noted previously, soft tissue swelling at the amputation site and heterotopic ossification noted, but unchanged from the previous film in 2015. His foot x-ray ipsilaterally showed osteopenia without any evidence of focal osteoporosis with postoperative changes of the great toe and amputation of the third digit. IMPRESSION AND PLAN: Mr. Xavier is a 52-year-old gentleman with super-morbid obesity and worsening lower extremity wounds in the setting of weight gain and worsening edema and demonstrated inability to care for himself. The patient is being admitted to the hospitalist service for cellulitis and worsening lower extremity wounds relating to obesity and worsening lower extremity edema. I believe the patient has at least some element of heart failure with an elevated BNP without clear evidence of renal failure and he will be diuresed intravenously to reduce some of the lower extremity edema, which is causing some of his wound problems and lower extremity problems. With respect to his wounds, I am going to ask Dr. Eric Salcido of the surgical service to evaluate him for a possible debridement or recommendations for ongoing wound care. I am going to start the patient empirically on IV vanco. I believe the Staph is the culprit organism in this case and a few days of IV vancomycin would help the situation if there is indeed an infectious component. With respect to his hypertension, he has got elevated blood pressures and I am going to increase his BENITO dose to 40 mg lisinopril daily. With respect to his social situation, I am going to request the social work consult. I think he might be in a senior living. If he loses his weight, it becomes more capable in the outpatient setting. Full code. TIME SPENT: Total time taken to admit Mr. Xavier was 75 minutes, greater than half of that time was spent going over the admission history and physical and explaining the hospital plan of care to the patient with which he is now in agreement. [id number]/[facility] #: [id number] MELISSA
--- NOTE | 2017-12-17 19:15 | CONS ---
CONSULTATION REPORT: DATE OF CONSULT: 12/17/17 LOCATION: Room 412. HISTORY OF PRESENT ILLNESS: Jose is a pleasant 52-year-old gentleman who has had chronic obesity, diabetic neuropathy, and bilateral foot ulceration, and a previous history of osteomyelitis. About 5 years ago, I performed a left Syme amputation, and the patient has been ambulatory with a socket type of brace ever since. However, he states for the last 2 years, he has had ulceration at the left Syme amputation site, but has not been seen in my office. Jose has basically spiralled in terms of his personal well being. He has been more or less shut-in. He states he goes to do shopping and to get about, but lives most of his time in his first floor apartment. He has had again massive amount of weight gain and has not really been able to care for this ulcer in his left hindfoot. MEDICATIONS: His medications are outlined in the chart. He has super morbid obesity, insulin dependent diabetic, and chronic left hindfoot ulceration and breakdown. PHYSICAL EXAM: Jose is massively obese to the extent that he really has difficulty moving his body around. He tends to sleep prone and he is less obstructed in that position and this is the position he is in when I initially come to see him. The ulceration of his left stump is surrounded by a thick hypertrophic callus and scab and dried blood. He has a silver dollar sized ulcer in the lateral area, more or less below the tip of the fibula. The fat pad at the bottom of the amputation is well located. The leg is massively edematous and swollen as well the thigh, but there is no proximal tracking of the erythema. PLAN: Jose would benefit from a CT or an MRI of his left hindfoot, preferably the MRI to see if he has established osteomyelitis. He may be a candidate for revision of the amputation, possibly more proximal and we will be happy to follow. [id number]/[facility] #: [id number] MELISSA
[2017-12-18] MEDS: Vancomycin(*) 1,000 MG in NS 0.9% 250 ML* 250 ML IVPB SCH ×4 (02:24→21:13)
[2017-12-18] MEDS: Heparin VIAL(*) 5000 UNITS/ML VIAL (FIVE THOUSAND) SUBCUT SCH ×3 (05:38→21:16)
[2017-12-18 07:18] LABS: ABS Basophils 0.1 10^3/ul (0-0.2); ABS Eosinophils 0.2 10^3/ul (0-0.6); ABS Lymphocytes 0.7 10^3/ul (1.0-4.8); ABS Monocytes 0.6 10^3/ul (0-0.8); ABS Neutrophils 5.2 10^3/ul (1.5-7.7); ABS Nucleated RBC 0 10^3/ul; Eosinophil % 2.6 % (0-6); Hematocrit 43 % (42-52); Hemoglobin 13.8 g/dl (14.0-18.0); Lymphocyte % 10.5 % (25-47); Mean Corpuscular HGB Conc 32 g/dl (31-36); Mean Corpuscular Hemoglobin 29 pg (27-31); Mean Corpuscular Volume 91 fL (80-94); Nucleated Red Blood Cells % 0.1; Platelet Count 165 10^3/ul (150-450); Red Blood Count 4.73 10^6/ul (4.00-5.40); Red Cell Distribution Width 17 % (10.5-15); White Blood Count 6.8 10^3/ul (3.5-10.8)
[2017-12-18 07:28] LABS: EGFR Non-African American 87.2 (>60)
[2017-12-18] MEDS ORDERED: Vancomycin Trough Check NOTE FOLLOW UP ONE (08:00)
[2017-12-18] MEDS ORDERED: Lisinopril TAB* 10 MG PO SCH (09:00)
[2017-12-18] MEDS: Losartan TAB* 25 MG PO SCH (09:19)
[2017-12-18] MEDS: Atorvastatin* 20 MG TAB PO SCH (09:20)
[2017-12-18] MEDS: amLODIPine TAB* 5 MG PO SCH (09:20)
[2017-12-18] MEDS: Aspirin 81 mg CHEW TAB* 81 MG TAB.CHEW PO SCH (09:20)
[2017-12-18] MEDS: Hydrochlorothiazide TAB* 25 MG PO SCH (09:20)
[2017-12-18] MEDS: Furosemide IV* 10 MG/ML VIAL (40 MG) IV SCH (09:20)
[2017-12-18] MEDS: metFORMIN* 1,000 MG TAB PO SCH ×2 (09:20→21:06)
[2017-12-18] MEDS: Nystatin TOP POWDER* 15 GM BTL TOPICAL SCH ×3 (10:16→21:17)
--- NOTE | 2017-12-18 12:43 | PN ---
Progress Note - Progress Note Date of Service: 12/18/17 SOAP: Subjective: []Patient seen at bedside. He feels well without pain of his lower extremities, he has limited to no sensation distally. MRI was cancelled by imaging due to patient weight exceeding machine. Objective: []General: NAD LLE:Left stump with callus and scab surrounding a silver dollar sized ulceration. No erythema surrounding and no erythema tracking proximally. Assessment: [] Left stump ulceration Plan: [] As MRI is not an option patient requires a CT of his left distal stump to see if osteomyelitis is present Ortho will continue to follow Vital Signs Temp 98.1 F 12/18/17 07:30 Pulse 82 12/18/17 07:30 Resp 16 12/18/17 08:00 BP 120/67 12/18/17 07:30 Pulse Ox 98 12/18/17 07:30 Intake & Output 12/17/17 12/18/17 12/18/17 18:59 06:59 18:59 Intake Total 480 780 600 Output Total 6100 Balance 480 -5320 600 Intake: IV Fluids 40 NS (0.9%) 40 IVPB 500 ABX - VANCOMYCIN 500 Oral 480 240 600 Output: Painting 6100 Other: # Bowel Movements 0 # Voids 450 Laboratory Last Values WBC 6.8 10^3/ul (3.5-10.8) 12/18/17 07:01 RBC 4.73 10^6/ul (4.00-5.40) 12/18/17 07:01 Hgb 13.8 g/dl (14.0-18.0) L 12/18/17 07:01 Hct 43 % (42-52) 12/18/17 07:01 MCV 91 fL (80-94) 12/18/17 07:01 MCH 29 pg (27-31) 12/18/17 07:01 MCHC 32 g/dl (31-36) 12/18/17 07:01 RDW 17 % (10.5-15) H 12/18/17 07:01 Plt Count 165 10^3/ul (150-450) 12/18/17 07:01 MPV 8.0 um3 (7.4-10.4) 12/18/17 07:01 Neut % (Auto) 76.9 % (38-83) 12/18/17 07:01 Lymph % (Auto) 10.5 % (25-47) L 12/18/17 07:01 [place] % (Auto) 8.6 % (0-7) H 12/18/17 07:01 Eos % (Auto) 2.6 % (0-6) 12/18/17 07:01 Baso % (Auto) 1.4 % (0-2) 12/18/17 07:01 Absolute Neuts (auto) 5.2 10^3/ul (1.5-7.7) 12/18/17 07:01 Absolute Lymphs (auto) 0.7 10^3/ul (1.0-4.8) L 12/18/17 07:01 Absolute Monos (auto) 0.6 10^3/ul (0-0.8) 12/18/17 07:01 Absolute Eos (auto) 0.2 10^3/ul (0-0.6) 12/18/17 07:01 Absolute Basos (auto) 0.1 10^3/ul (0-0.2) 12/18/17 07:01 Absolute Nucleated RBC 0 10^3/ul 12/18/17 07:01 Nucleated RBC % 0.1 12/18/17 07:01 ESR 8 mm/Hr (0-20) 12/15/17 13:28 INR (Anticoag Therapy) 1.08 (0.77-1.02) H 12/15/17 13:28 APTT 32.5 seconds (26.0-36.3) 12/15/17 13:28 Sodium 138 mmol/L (135-145) 12/18/17 07:01 Potassium 4.6 mmol/L (3.5-5.0) 12/18/17 07:01 Chloride 100 mmol/L (101-111) L 12/18/17 07:01 Carbon Dioxide 35 mmol/L (22-32) H 12/18/17 07:01 Anion Gap 3 mmol/L (2-11) 12/18/17 07:01 BUN 20 mg/dL (6-24) 12/18/17 07:01 Creatinine 0.91 mg/dL (0.67-1.17) 12/18/17 07:01 Est GFR ( Amer) 105.5 (>60) 12/18/17 07:01 Est GFR (Non-Af Amer) 87.2 (>60) 12/18/17 07:01 BUN/Creatinine Ratio 22.0 (8-20) H 12/18/17 07:01 Glucose 154 mg/dL (70-100) H 12/18/17 07:01 Hemoglobin A1c 7.9 % (4.0-5.6) H 12/15/17 13:28 Lactic Acid 1.5 mmol/L (0.5-2.0) 12/15/17 18:49 Calcium 8.4 mg/dL (8.6-10.3) L 12/18/17 07:01 Total Bilirubin 1.00 mg/dL (0.2-1.0) 12/18/17 07:01 AST 11 U/L (13-39) L 12/18/17 07:01 ALT 11 U/L (7-52) 12/18/17 07:01 Alkaline Phosphatase 121 U/L (34-104) H 12/18/17 07:01 Troponin I 0.04 ng/mL (<0.04) H* 12/16/17 19:28 C-Reactive Protein 11.68 mg/L (<8.01) H 12/15/17 13:28 B-Natriuretic Peptide 918 pg/mL (-100) H 12/15/17 13:28 Total Protein 5.8 g/dL (6.4-8.9) L 12/18/17 07:01 Albumin 3.0 g/dL (3.2-5.2) L 12/18/17 07:01 Globulin 2.8 g/dL (2-4) 12/18/17 07:01 Albumin/Globulin Ratio 1.1 (1-3) 12/18/17 07:01 Urine Color Daija 12/16/17 18:24 Urine Appearance Cloudy 12/16/17 18:24 Urine pH 5.0 (5-9) 12/16/17 18:24 Ur Specific [place] 1.023 (1.010-1.030) 12/16/17 18:24 Urine Protein 2+(100 mg/dl) (Negative) A 12/16/17 18:24 Urine Ketones Negative (Negative) 12/16/17 18:24 Urine Blood 3+ (Negative) A 12/16/17 18:24 Urine Nitrate Negative (Negative) 12/16/17 18:24 Urine Bilirubin Negative (Negative) 12/16/17 18:24 Urine Urobilinogen Positive (Negative) A 12/16/17 18:24 Ur Leukocyte Esterase Negative (Negative) 12/16/17 18:24 Urine WBC (Auto) Trace(0-5/hpf) (Absent) 12/16/17 18:24 Urine RBC (Auto) 3+(>10/hpf) (Absent) A 12/16/17 18:24 Urine Bacteria 1+ (Absent) A 12/16/17 18:24 Urine Yeast Present (Absent) A 12/16/17 18:24 Urine Glucose Negative (Negative) 12/16/17 18:24 Vancomycin Trough 19.0 mcg/mL 12/18/17 06:56
[2017-12-18] MEDS ORDERED: Perflutren Lipid Microsphere* 3 ML VIAL ONE (14:03)
--- NOTE | 2017-12-18 15:48 | RAD ---
Indication: Osteomyelitis. CT of the left hindfoot was obtained. Motion artifact degrades the images. No abnormal erosions are noted. There is soft tissue swelling at the distal stump for which underlying infection is not excluded. No erosive changes of the bones are noted although evaluation is limited due to motion artifact. Soft tissue swelling is noted in the subcutaneous soft tissue of the distal calf. IMPRESSION: No bony erosion is noted although evaluation of the distal stump is limited by motion. There is soft tissue swelling at the stump. Underlying fluid collection is not excluded. Extensive subcutaneous emphysema is present.
[2017-12-18] MEDS: oxyCODONE TAB* 5 MG TAB PO PRN (15:49)
--- NOTE | 2017-12-18 17:01 | ECHO ---
Patient: [facility] Rec#: [id number] : 1965 Date: 12/18/2017 Age: 52y Height: 180 cm / 70.9 in Weight: 227 kg / 500.3 lbs Sex: M BSA: 3.11 Room#: [facility] Admit Date#: 12/16/2017 Type: Inpatient Referring: Mukund Tsang Reading: Hugo Pardo MD [employer] Miller Head: Renay Ortiz JESSICA CC: Tr[facility] C[facility]ARRUBIAS,[facility] Indication: Edema//SOB BP: 120/67 HR: 82 Rhythm: NSR Findings History: Super morbid obesity,HTN,DM,HLD,COPD,s/p left BKA. Definity used to enhance images. Technical Comments: The study is technically difficult. Completed at 1500. The study is technically limited due to patient body habitus. The study is technically limited due to the patient's history of COPD. The study was technically limited due to the patient's inability to lay in the left lateral decubitus position. Left Ventricle: The left ventricular chamber size is decreased. Mild to moderate concentric left ventricular hypertrophy is observed. The estimated ejection fraction is 55-60%. Abnormal left ventricular diastolic function is observed. Left Atrium: The left atrium is not well visualized. Right Ventricle: The right ventricle is not well visualized. The right ventricle is mild to moderately dilated. The right ventricle wall thickness is moderately increased.9 mm. The right ventricular global systolic function is moderately reduced. Flattened in systole and diastole consistent with right ventricular pressure and volume overload. Right Atrium: The right atrium is not well visualized. Aortic Valve: The aortic valve structure is not well visualized. Mitral Valve: The mitral valve leaflets are mildly thickened. There is no evidence of mitral regurgitation. There is no evidence of mitral stenosis. Tricuspid Valve: The tricuspid valve leaflets are normal. There is mild tricuspid regurgitation. There is evidence of moderate pulmonary hypertension. There is no tricuspid stenosis. Pulmonic Valve: The pulmonic valve structure is not well visualized. Pericardium: The pericardium is not well visualized. Aorta: The ascending aorta is not well visualized. The aortic arch is not well visualized. There is mild dilatation of the aortic root. Pulmonary Artery: The main pulmonary artery is not well visualized. Venous: The venous system is not well visualized. Contrast: Definity was used to optimize study. A total of 6ml utilized. Intravenous contrast was used to enhance endocardial border definition. Summary: There was not any prior study for comparison. Conclusions The study is technically difficult. The left ventricular chamber size is decreased. Mild to moderate concentric left ventricular hypertrophy is observed. The estimated ejection fraction is 55-60%. Abnormal left ventricular diastolic function is observed. The right ventricle is mild to moderately dilated. The right ventricle wall thickness is moderately increased. The right ventricular global systolic function is moderately reduced. Flattened in systole and diastole consistent with right ventricular pressure and volume overload. There is mild tricuspid regurgitation. There is evidence of moderate pulmonary hypertension. There is mild dilatation of the aortic root. Measurements Name Value Normal Range RVIDd (AP) 2D 3.3 cm (0.9 - 2.6) IVSd (2D) 1.2 cm (0.6 - 1) LVPWd (2D) 1.6 cm (0.6 - 1) LVIDd (2D) 2.9 cm (3.6 - 5.4) Aortic Annulus 2.1 cm (1.4 - 2.6) Ao root diameter (2D) 3.9 cm (2.1 - 3.5) Name Value Normal Range MV E-wave Vmax 0.6 m/sec - MV deceleration time 236 msec - MV A-wave Vmax 1 m/sec - Name Value Normal Range AV Vmax 1.3 m/sec - AV VTI 24 cm - AV peak gradient 7 mmHg - AV mean gradient 3 mmHg - LVOT Vmax 0.9 m/sec - LVOT peak gradient 3 mmHg - LVOT mean gradient 2 mmHg - Name Value Normal Range TR Vmax 3.4 m/sec - TR peak gradient 45 mmHg - RAP 8 mmHg - RVSP 53 mmHg - Name Value Normal Range PV Vmax 0.8 m/sec - PV peak gradient 2 mmHg -
--- NOTE | 2017-12-18 18:30 | PN ---
Subjective Date of Service: 12/18/17 Interval History: Pt says he has been recommended to have O2 in past but was not able to afford. MRI ordered by Dr. Quintero but cancelled as pt exceeds weight requirement (500lb limit, just over if include the coil) CT instead. ECHO with diastolic dysfunction. a lot of skin break down net negative 4.8L yesterday. no updated weights. Family History: Unchanged from Admission Social History: Unchanged from Admission Past Medical History: Unchanged from Admission Objective Active Medications: Acetaminophen (Tylenol Tab*) 650 mg PO Q4H PRN PRN Reason: FEVER/PAIN Amlodipine Besylate (Norvasc Tab*) 10 mg PO DAILY [facility] Last Admin: 12/18/17 09:20 Dose: 10 mg Aspirin (Aspirin 81 Mg Chew Tab*) 81 mg PO DAILY [facility] Last Admin: 12/18/17 09:20 Dose: 81 mg Atorvastatin Calcium (Lipitor*) 20 mg PO DAILY [facility] Last Admin: 12/18/17 09:20 Dose: 20 mg Furosemide (Lasix Iv*) 40 mg IV DAILY [facility] Last Admin: 12/18/17 09:20 Dose: 40 mg Heparin Sodium (Porcine) (Heparin Vial(*)) 5,000 units SUBCUT Q8HR [facility] Last Admin: 12/18/17 14:51 Dose: Not Given Hydrochlorothiazide (Hydrodiuril Tab*) 25 mg PO DAILY [facility] Last Admin: 12/18/17 09:20 Dose: 25 mg Vancomycin HCl 1,000 mg/ (Sodium Chloride) 250 mls @ 166.667 mls/hr IVPB Q6H [facility] Last Admin: 12/18/17 14:47 Dose: 166.667 mls/hr Losartan Potassium (Cozaar Tab*) 100 mg PO DAILY [facility] Last Admin: 12/18/17 09:19 Dose: 100 mg Metformin HCl (Glucophage*) 1,000 mg PO BID [facility] Last Admin: 12/18/17 09:20 Dose: 1,000 mg Morphine Sulfate (Morphine Inj ((Syringe))*) 2 mg IV Q4H PRN PRN Reason: PAIN - MILD Nystatin (Nystatin Top Powder*) 1 applic TOPICAL TID [facility] Last Admin: 12/18/17 14:49 Dose: 1 applic Ondansetron HCl (Zofran Inj*) 4 mg IV Q4H PRN PRN Reason: NAUSEA/VOMITING Oxycodone HCl (Roxycodone Tab*) 5 mg PO TID PRN PRN Reason: PAIN Last Admin: 12/18/17 15:49 Dose: 5 mg Pharmacy Consult (Vancomycin Per Pharmacy*) 1 note FOLLOW UP .VANC PER PHARMACY [facility] Pharmacy Profile Note (Vancomycin Trough Check) 1 note FOLLOW UP 0800 ONE Stop: 12/20/17 08:01 Vital Signs - 8 hr 12/18/17 12/18/17 12/18/17 11:05 15:19 15:49 Temperature 98.4 F 97.7 F Pulse Rate 85 87 Respiratory 20 18 18 Rate Blood Pressure 104/76 138/79 (mmHg) O2 Sat by Pulse 88 97 Oximetry Oxygen Devices in Use Now: None Appearance: chronically ill appearing. Eyes: No Scleral Icterus, PERRLA Ears/Nose/Mouth/Throat: - - very poor dentition. Neck: Trachea Midline Respiratory: - - anteriorly CTAB. Abdominal: - - soft, nontender. morbidly obese. anisarca. Extremities: - - 2+ edema/anisarca. left BKA with 5 cm eschar w/o surrounding erythema. no fluctuant. skin ulceration right dorsum and distal 1st toe. Skin: - - as above. Neurological: Alert and Oriented x 3 Nutrition: Taking PO's Result Diagrams: 12/18/17 07:01 12/18/17 07:01 Additional Lab and Data: Laboratory Results - last 24 hr 12/18/17 12/18/17 12/18/17 06:56 07:01 07:01 WBC 6.8 RBC 4.73 Hgb 13.8 L Hct 43 MCV 91 MCH 29 MCHC 32 RDW 17 H Plt Count 165 MPV 8.0 Neut % (Auto) 76.9 Lymph % (Auto) 10.5 L Nye % (Auto) 8.6 H Eos % (Auto) 2.6 Baso % (Auto) 1.4 Absolute Neuts (auto) 5.2 Absolute Lymphs (auto) 0.7 L Absolute Monos (auto) 0.6 Absolute Eos (auto) 0.2 Absolute Basos (auto) 0.1 Absolute Nucleated RBC 0 Nucleated RBC % 0.1 Sodium 138 Potassium 4.6 Chloride 100 L Carbon Dioxide 35 H Anion Gap 3 BUN 20 Creatinine 0.91 Est GFR ( Amer) 105.5 Est GFR (Non-Af Amer) 87.2 BUN/Creatinine Ratio 22.0 H Glucose 154 H Calcium 8.4 L Total Bilirubin 1.00 AST 11 L ALT 11 Alkaline Phosphatase 121 H Total Protein 5.8 L Albumin 3.0 L Globulin 2.8 Albumin/Globulin Ratio 1.1 Vancomycin Trough 19.0 Microbiology and Other Data: Microbiology 12/15/17 13:35 Blood Venous Aerobic Blood Culture - Preliminary No Growth Day 3 12/15/17 13:35 Blood Venous Anaerobic Blood Culture - Preliminary No Growth Day 3 12/15/17 13:28 Blood Venous Aerobic Blood Culture - Preliminary No Growth Day 3 12/15/17 13:28 Blood Venous Anaerobic Blood Culture - Preliminary No Growth Day 3 12/15/17 13:28 Foot Left Skin and Soft Tissue MRSA/MSSA (PCR - Final Mrsa Positive S.aureus Positive 12/15/17 13:28 Foot Left Gram Stain - Final 12/15/17 13:28 Foot Left Wound Culture - Final MRSA Morganella Morganii Klebsiella Oxytoca 12/16/17 18:24 Urine Urine Culture - Final No Growth (<1,000 CFU/mL) Assess/Plan/Problems-Billing . Assessment: 52 yo man with MRSA-infected lower extremity ulceration as well as increased lower extremity edema and uncontrolled hypertension. Diastolic Dysfunction with anisarca - Patient Problems (1) Bilateral lower extremity edema Current Visit: Yes Status: Acute Priority: High Code(s): R60.0 - LOCALIZED EDEMA SNOMED Code(s): 021107056 Comment: - Lasix 40 mg IV daily, net neagtive 2-2.5L daily. - low salt diet; nutrition consult - strict io - daily weights. - 2/2 diastolic dysfunction. (2) Hypertension Current Visit: Yes Status: Acute Priority: High Code(s): I10 - ESSENTIAL ( PRIMARY) HYPERTENSION SNOMED Code(s): 85513785 Comment: - Losartan 100mg, Amlodipin 10mg, HCTZ 25mg, IV lasix (3) Infection of wound due to methicillin resistant Staphylococcus aureus (MRSA) Current Visit: Yes Status: Acute Priority: High Code(s): A49.02 - METHICILLIN RESIS STAPH INFECTION, UNSP SITE SNOMED Code(s): 553021992 Comment: - b/l lower extremity wounds - Vancomycin by pharmacy protocol - Surgery (and ortho) consults are appreciated. F/u recs. CT scan with no clear bone involvment. SubQ emphysema and can't exclude fluid collection. May need debridement. (4) Morbid obesity with BMI of 70 and over, adult Current Visit: Yes Status: Acute Priority: High Code(s): E66.01 - MORBID ( SEVERE) OBESITY DUE TO EXCESS CALORIES; Z68.45 - BODY MASS INDEX (BMI) 70 OR GREATER, ADULT SNOMED Code(s): 356813697 Comment: - nutrition consult - SW consult (5) Diabetes mellitus Current Visit: Yes Status: Acute Code(s): E11.9 - TYPE 2 DIABETES MELLITUS WITHOUT COMPLICATIONS SNOMED Code(s): 42750917 Comment: A1C 7.9% metformin 1000mg BID (6) Acute and chronic respiratory failure with hypoxia Current Visit: Yes Status: Acute Code(s): J96.21 - ACUTE AND CHRONIC RESPIRATORY FAILURE WITH HYPOXIA SNOMED Code(s): 88562360 Comment: likely 2/2 obesity hypoventilation and acute CHF exacerbation (7) HLD (hyperlipidemia) Current Visit: Yes Status: Acute Code(s): E78.5 - HYPERLIPIDEMIA, UNSPECIFIED SNOMED Code(s): 95982463 Comment: Continue atorvastatin. (8) DVT prophylaxis Current Visit: Yes Status: Acute Code(s): SAX2246 - SNOMED Code(s): 165130027 Comment: heparin 5000U TID (9) Yeast infection of the skin Current Visit: Yes Status: Acute Code(s): B37.2 - CANDIDIASIS OF SKIN AND NAIL SNOMED Code(s): 14431336 Comment: nystatin, wound care consult, diuresis, mobility. Status and Disposition: medicine inpatient.
[2017-12-19] MEDS: Heparin VIAL(*) 5000 UNITS/ML VIAL (FIVE THOUSAND) SUBCUT SCH ×3 (04:27→22:17)
[2017-12-19] MEDS: Vancomycin(*) 1,250 MG in NS 0.9% 250 ML* 250 ML IVPB SCH ×3 (04:38→20:54)
[2017-12-19 08:13] LABS: EGFR Non-African American 95.6 (>60)
[2017-12-19] MEDS: Aspirin 81 mg CHEW TAB* 81 MG TAB.CHEW PO SCH (10:17)
[2017-12-19] MEDS: Losartan TAB* 25 MG PO SCH (10:17)
[2017-12-19] MEDS: Atorvastatin* 20 MG TAB PO SCH (10:17)
[2017-12-19] MEDS: Hydrochlorothiazide TAB* 25 MG PO SCH (10:18)
[2017-12-19] MEDS: amLODIPine TAB* 5 MG PO SCH (10:18)
[2017-12-19] MEDS: metFORMIN* 1,000 MG TAB PO SCH ×2 (10:18→20:34)
[2017-12-19] MEDS: Furosemide IV* 10 MG/ML VIAL (40 MG) IV SCH ×2 (10:18→16:20)
[2017-12-19] MEDS: Nystatin TOP POWDER* 15 GM BTL TOPICAL SCH ×3 (10:26→22:06)
--- NOTE | 2017-12-19 15:51 | PN ---
Subjective Date of Service: 12/19/17 Interval History: +647 on i/o. some concern for rash last night and vancomycin infusion rate halved. Pt thinks the rash preceeded abx. Planned I&D tomorrow. Family History: Unchanged from Admission Social History: Unchanged from Admission Past Medical History: Unchanged from Admission Objective Active Medications: Acetaminophen (Tylenol Tab*) 650 mg PO Q4H PRN PRN Reason: FEVER/PAIN Amlodipine Besylate (Norvasc Tab*) 10 mg PO DAILY [facility] Last Admin: 12/19/17 10:18 Dose: 10 mg Aspirin (Aspirin 81 Mg Chew Tab*) 81 mg PO DAILY [facility] Last Admin: 12/19/17 10:17 Dose: 81 mg Atorvastatin Calcium (Lipitor*) 20 mg PO DAILY [facility] Last Admin: 12/19/17 10:17 Dose: 20 mg Furosemide (Lasix Iv*) 40 mg IV 0800,1600 [facility] Heparin Sodium (Porcine) (Heparin Vial(*)) 5,000 units SUBCUT Q8HR [facility] Last Admin: 12/19/17 13:02 Dose: Not Given Hydrochlorothiazide (Hydrodiuril Tab*) 25 mg PO DAILY [facility] Last Admin: 12/19/17 10:18 Dose: 25 mg Vancomycin HCl 1,250 mg/ (Sodium Chloride) 250 mls @ 83.333 mls/hr IVPB Q8H [facility] Last Admin: 12/19/17 13:01 Dose: 83.333 mls/hr Losartan Potassium (Cozaar Tab*) 100 mg PO DAILY [facility] Last Admin: 12/19/17 10:17 Dose: 100 mg Metformin HCl (Glucophage*) 1,000 mg PO BID [facility] Last Admin: 12/19/17 10:18 Dose: 1,000 mg Morphine Sulfate (Morphine Inj ((Syringe))*) 2 mg IV Q4H PRN PRN Reason: PAIN - MILD Nystatin (Nystatin Top Powder*) 1 applic TOPICAL TID [facility] Last Admin: 12/19/17 13:02 Dose: 1 applic Ondansetron HCl (Zofran Inj*) 4 mg IV Q4H PRN PRN Reason: NAUSEA/VOMITING Oxycodone HCl (Roxycodone Tab*) 5 mg PO TID PRN PRN Reason: PAIN Last Admin: 12/18/17 15:49 Dose: 5 mg Pharmacy Consult (Vancomycin Per Pharmacy*) 1 note FOLLOW UP .VANC PER PHARMACY [facility] Pharmacy Profile Note (Vancomycin Trough Check) 1 note FOLLOW UP 0500 ONE Stop: 12/20/17 05:01 Vital Signs - 8 hr 12/19/17 08:00 Respiratory 18 Rate O2 Sat by Pulse 100 Oximetry Oxygen Devices in Use Now: None Appearance: chronically ill appearing. super morbid obesity. lying prone. Eyes: No Scleral Icterus Ears/Nose/Mouth/Throat: NL Teeth, Lips, Gums, Clear Oropharnyx Respiratory: Symmetrical Chest Expansion and Respiratory Effort, Clear to Auscultation Cardiovascular: - - not able to ascess given lying prone today. Abdominal: - - no flank tenderness or lateral abdomen tenderness. super morbidly obese currently lying prone. Extremities: - - anisarca with bl flank edema and lower extremities. Skin: - - left hind leg with 5cm eschar w/o tenderness, drainage or erythema. left 1st to bandaged w/o strikethru. Neurological: Alert and Oriented x 3, NL Sensation, NL Muscle Strength and Tone Result Diagrams: 12/18/17 07:01 12/19/17 07:39 Additional Lab and Data: Laboratory Results - last 24 hr 12/19/17 07:39 Sodium 137 Potassium 4.7 Chloride 99 L Carbon Dioxide 36 H Anion Gap 2 BUN 16 Creatinine 0.84 Est GFR ( Amer) 115.7 Est GFR (Non-Af Amer) 95.6 BUN/Creatinine Ratio 19.0 Glucose 142 H Calcium 8.6 Microbiology and Other Data: Microbiology 12/15/17 13:35 Blood Venous Aerobic Blood Culture - Preliminary No Growth Day 4 12/15/17 13:35 Blood Venous Anaerobic Blood Culture - Preliminary No Growth Day 4 12/15/17 13:28 Blood Venous Aerobic Blood Culture - Preliminary No Growth Day 4 12/15/17 13:28 Blood Venous Anaerobic Blood Culture - Preliminary No Growth Day 4 12/15/17 13:28 Foot Left Skin and Soft Tissue MRSA/MSSA (PCR - Final Mrsa Positive S.aureus Positive 12/15/17 13:28 Foot Left Gram Stain - Final 12/15/17 13:28 Foot Left Wound Culture - Final MRSA Morganella Morganii Klebsiella Oxytoca 12/16/17 18:24 Urine Urine Culture - Final No Growth (<1,000 CFU/mL) Assess/Plan/Problems-Billing . Assessment: 52 yo man with MRSA-infected lower extremity ulceration as well as increased lower extremity edema and uncontrolled hypertension. Diastolic Dysfunction with anisarca. Planned I&D 12/20/[address] Hernandez. - Patient Problems (1) Bilateral lower extremity edema Current Visit: Yes Status: Acute Priority: High Code(s): R60.0 - LOCALIZED EDEMA SNOMED Code(s): 858719551 Comment: - increased Lasix 40 mg IV to BID given no net gain yesterday, goal net neagtive 2-2.5L daily. - low salt diet; nutrition consult - strict io - daily weights. - 2/2 diastolic dysfunction. (2) Hypertension Current Visit: Yes Status: Acute Priority: High Code(s): I10 - ESSENTIAL ( PRIMARY) HYPERTENSION SNOMED Code(s): 42387281 Comment: - Losartan 100mg, Amlodipin 10mg, HCTZ 25mg, IV lasix (3) Infection of wound due to methicillin resistant Staphylococcus aureus (MRSA) Current Visit: Yes Status: Acute Priority: High Code(s): A49.02 - METHICILLIN RESIS STAPH INFECTION, UNSP SITE SNOMED Code(s): 827469452 Comment: - b/l lower extremity wounds - Vancomycin by pharmacy protocol - Surgery (and ortho) consults are appreciated. F/u recs. CT scan with no clear bone involvment. SubQ emphysema and can't exclude fluid collection. Planned I&D 12/20/17. npo midnight. (4) Morbid obesity with BMI of 70 and over, adult Current Visit: Yes Status: Acute Priority: High Code(s): E66.01 - MORBID ( SEVERE) OBESITY DUE TO EXCESS CALORIES; Z68.45 - BODY MASS INDEX (BMI) 70 OR GREATER, ADULT SNOMED Code(s): 686390901 Comment: - nutrition consult - SW consult (5) Diabetes mellitus Current Visit: Yes Status: Acute Code(s): E11.9 - TYPE 2 DIABETES MELLITUS WITHOUT COMPLICATIONS SNOMED Code(s): 66387641 Comment: A1C 7.9% metformin 1000mg BID (6) Acute and chronic respiratory failure with hypoxia Current Visit: Yes Status: Acute Code(s): J96.21 - ACUTE AND CHRONIC RESPIRATORY FAILURE WITH HYPOXIA SNOMED Code(s): 81963716 Comment: likely 2/2 obesity hypoventilation and acute CHF exacerbation (7) HLD (hyperlipidemia) Current Visit: Yes Status: Acute Code(s): E78.5 - HYPERLIPIDEMIA, UNSPECIFIED SNOMED Code(s): 18968278 Comment: Continue atorvastatin. (8) DVT prophylaxis Current Visit: Yes Status: Acute Code(s): SPW9342 - SNOMED Code(s): 986524163 Comment: heparin 5000U TID (9) Yeast infection of the skin Current Visit: Yes Status: Acute Code(s): B37.2 - CANDIDIASIS OF SKIN AND NAIL SNOMED Code(s): 83360524 Comment: nystatin, wound care consult, diuresis, mobility. Status and Disposition: medicine inpatient for need for further diuresis (anisarca) and I&D of right hind foot.
--- NOTE | 2017-12-19 16:30 | PN ---
Progress Note - Progress Note Date of Service: 12/19/17 SOAP: Subjective: []Patient seen at bedside. He is comfortable and has no pain of LLE, no feeling of fever or chills. Objective: []General: NAD LLE:Left stump with callus and scab surrounding a silver dollar sized ulceration. Ulceration without drainage or odor. No erythema surrounding and no erythema tracking proximally. Nontender to palpation. Assessment: [] Left stump ulceration Plan: [] NPO after midnight. Hold heparin at midnight. Patient is agreeable to I&D by Dr Romero tomorrow. Vital Signs Temp 98.6 F 12/19/17 07:27 Pulse 77 12/19/17 07:27 Resp 18 12/19/17 08:00 BP 115/71 12/19/17 07:27 Pulse Ox 100 12/19/17 08:00 Intake & Output 12/18/17 12/19/17 12/19/17 18:59 06:59 18:59 Intake Total 3460 1287 920 Output Total 2850 1250 3425 Balance 610 37 -2505 Intake: IV Fluids 500 20 ABX - VANCOMYCIN 500 NS (0.9%) 20 IVPB 887 180 ABX - VANCOMYCIN 887 180 Oral 1560 400 720 Painting Irrigate Amount 1400 Output: Urine 0 Painting 2850 1250 3425 Other: # Bowel Movements 0 Laboratory Last Values WBC 6.8 10^3/ul (3.5-10.8) 12/18/17 07:01 RBC 4.73 10^6/ul (4.00-5.40) 12/18/17 07:01 Hgb 13.8 g/dl (14.0-18.0) L 12/18/17 07:01 Hct 43 % (42-52) 12/18/17 07:01 MCV 91 fL (80-94) 12/18/17 07:01 MCH 29 pg (27-31) 12/18/17 07:01 MCHC 32 g/dl (31-36) 12/18/17 07:01 RDW 17 % (10.5-15) H 12/18/17 07:01 Plt Count 165 10^3/ul (150-450) 12/18/17 07:01 MPV 8.0 um3 (7.4-10.4) 12/18/17 07:01 Neut % (Auto) 76.9 % (38-83) 12/18/17 07:01 Lymph % (Auto) 10.5 % (25-47) L 12/18/17 07:01 Dukes % (Auto) 8.6 % (0-7) H 12/18/17 07:01 Eos % (Auto) 2.6 % (0-6) 12/18/17 07:01 Baso % (Auto) 1.4 % (0-2) 12/18/17 07:01 Absolute Neuts (auto) 5.2 10^3/ul (1.5-7.7) 12/18/17 07:01 Absolute Lymphs (auto) 0.7 10^3/ul (1.0-4.8) L 12/18/17 07:01 Absolute Monos (auto) 0.6 10^3/ul (0-0.8) 12/18/17 07:01 Absolute Eos (auto) 0.2 10^3/ul (0-0.6) 12/18/17 07:01 Absolute Basos (auto) 0.1 10^3/ul (0-0.2) 12/18/17 07:01 Absolute Nucleated RBC 0 10^3/ul 12/18/17 07:01 Nucleated RBC % 0.1 12/18/17 07:01 ESR 8 mm/Hr (0-20) 12/15/17 13:28 INR (Anticoag Therapy) 1.08 (0.77-1.02) H 12/15/17 13:28 APTT 32.5 seconds (26.0-36.3) 12/15/17 13:28 Sodium 137 mmol/L (135-145) 12/19/17 07:39 Potassium 4.7 mmol/L (3.5-5.0) 12/19/17 07:39 Chloride 99 mmol/L (101-111) L 12/19/17 07:39 Carbon Dioxide 36 mmol/L (22-32) H 12/19/17 07:39 Anion Gap 2 mmol/L (2-11) 12/19/17 07:39 BUN 16 mg/dL (6-24) 12/19/17 07:39 Creatinine 0.84 mg/dL (0.67-1.17) 12/19/17 07:39 Est GFR ( Amer) 115.7 (>60) 12/19/17 07:39 Est GFR (Non-Af Amer) 95.6 (>60) 12/19/17 07:39 BUN/Creatinine Ratio 19.0 (8-20) 12/19/17 07:39 Glucose 142 mg/dL (70-100) H 12/19/17 07:39 Hemoglobin A1c 7.9 % (4.0-5.6) H 12/15/17 13:28 Lactic Acid 1.5 mmol/L (0.5-2.0) 12/15/17 18:49 Calcium 8.6 mg/dL (8.6-10.3) 12/19/17 07:39 Total Bilirubin 1.00 mg/dL (0.2-1.0) 12/18/17 07:01 AST 11 U/L (13-39) L 12/18/17 07:01 ALT 11 U/L (7-52) 12/18/17 07:01 Alkaline Phosphatase 121 U/L (34-104) H 12/18/17 07:01 Troponin I 0.04 ng/mL (<0.04) H* 12/16/17 19:28 C-Reactive Protein 11.68 mg/L (<8.01) H 12/15/17 13:28 B-Natriuretic Peptide 918 pg/mL (-100) H 12/15/17 13:28 Total Protein 5.8 g/dL (6.4-8.9) L 12/18/17 07:01 Albumin 3.0 g/dL (3.2-5.2) L 12/18/17 07:01 Globulin 2.8 g/dL (2-4) 12/18/17 07:01 Albumin/Globulin Ratio 1.1 (1-3) 12/18/17 07:01 Urine Color Daija 12/16/17 18:24 Urine Appearance Cloudy 12/16/17 18:24 Urine pH 5.0 (5-9) 12/16/17 18:24 Ur Specific Dix 1.023 (1.010-1.030) 12/16/17 18:24 Urine Protein 2+(100 mg/dl) (Negative) A 12/16/17 18:24 Urine Ketones Negative (Negative) 12/16/17 18:24 Urine Blood 3+ (Negative) A 12/16/17 18:24 Urine Nitrate Negative (Negative) 12/16/17 18:24 Urine Bilirubin Negative (Negative) 12/16/17 18:24 Urine Urobilinogen Positive (Negative) A 12/16/17 18:24 Ur Leukocyte Esterase Negative (Negative) 12/16/17 18:24 Urine WBC (Auto) Trace(0-5/hpf) (Absent) 12/16/17 18:24 Urine RBC (Auto) 3+(>10/hpf) (Absent) A 12/16/17 18:24 Urine Bacteria 1+ (Absent) A 12/16/17 18:24 Urine Yeast Present (Absent) A 12/16/17 18:24 Urine Glucose Negative (Negative) 12/16/17 18:24 Vancomycin Trough 19.0 mcg/mL 12/18/17 06:56
[2017-12-20] MEDS ORDERED: Vancomycin Trough Check NOTE FOLLOW UP ONE ×2 (05:00→08:00)
[2017-12-20 06:25] LABS: ABS Basophils 0.1 10^3/ul (0-0.2); ABS Eosinophils 0.2 10^3/ul (0-0.6); ABS Lymphocytes 0.7 10^3/ul (1.0-4.8); ABS Monocytes 0.9 10^3/ul (0-0.8); ABS Neutrophils 6.9 10^3/ul (1.5-7.7); ABS Nucleated RBC 0 10^3/ul; Eosinophil % 2.8 % (0-6); Hematocrit 44 % (42-52); Hemoglobin 14.1 g/dl (14.0-18.0); Lymphocyte % 7.5 % (25-47); Mean Corpuscular HGB Conc 32 g/dl (31-36); Mean Corpuscular Hemoglobin 29 pg (27-31); Mean Corpuscular Volume 90 fL (80-94); Mean Platelet Volume 7.7 um3 (7.4-10.4); Nucleated Red Blood Cells % 0; Platelet Count 154 10^3/ul (150-450); Red Blood Count 4.82 10^6/ul (4.00-5.40); Red Cell Distribution Width 17 % (10.5-15); White Blood Count 8.7 10^3/ul (3.5-10.8)
[2017-12-20 06:30] LABS: INR 1.1 (0.77-1.02)
[2017-12-20 06:43] LABS: EGFR Non-African American 108.9 (>60)
[2017-12-20] MEDS: Vancomycin(*) 1,250 MG in NS 0.9% 250 ML* 250 ML IVPB SCH ×3 (08:17→20:54)
[2017-12-20] MEDS: Atorvastatin* 20 MG TAB PO SCH (08:18)
[2017-12-20] MEDS: Furosemide IV* 10 MG/ML VIAL (40 MG) IV SCH (08:18)
[2017-12-20] MEDS: amLODIPine TAB* 5 MG PO SCH (08:18)
[2017-12-20] MEDS: Losartan TAB* 25 MG PO SCH (08:21)
[2017-12-20] MEDS: Hydrochlorothiazide TAB* 25 MG PO SCH (08:21)
[2017-12-20] MEDS: metFORMIN* 1,000 MG TAB PO SCH ×2 (08:26→22:23)
[2017-12-20] MEDS: Nystatin TOP POWDER* 15 GM BTL TOPICAL SCH ×3 (08:37→22:28)
[2017-12-20] MEDS: Aspirin 81 mg CHEW TAB* 81 MG TAB.CHEW PO SCH (09:01)
[2017-12-20] MEDS ORDERED: fentaNYL* 50 MCG/ML 5 ML VIAL (250 MCG VIAL) ONE (12:44)
[2017-12-20] MEDS ORDERED: Atracurium* 10 MG/ML 10 ML VIAL ONE (12:44)
[2017-12-20] MEDS ORDERED: KETAMINE HCL* 50 MG/ML 10 ML VIAL ONE (12:44)
[2017-12-20] MEDS ORDERED: Midazolam* 1 MG/ML 5 ML VIAL (5 MG) ONE (12:44)
--- NOTE | 2017-12-20 13:45 | PN ---
Subjective Date of Service: 12/20/17 Interval History: Net negative 6.4L. No weight obtained yet. NUT FORMER stable. No complaints to nursing staff.. "just wants to sleep" Family History: Unchanged from Admission Social History: Unchanged from Admission Past Medical History: Unchanged from Admission Objective Active Medications: Acetaminophen (Tylenol Tab*) 650 mg PO Q4H PRN PRN Reason: FEVER/PAIN Amlodipine Besylate (Norvasc Tab*) 10 mg PO DAILY [facility] Last Admin: 12/20/17 08:18 Dose: 10 mg Aspirin (Aspirin 81 Mg Chew Tab*) 81 mg PO DAILY [facility] Last Admin: 12/20/17 09:01 Dose: Not Given Atorvastatin Calcium (Lipitor*) 20 mg PO DAILY [facility] Last Admin: 12/20/17 08:18 Dose: 20 mg Furosemide (Lasix Iv*) 40 mg IV 0800 [facility] Hydrochlorothiazide (Hydrodiuril Tab*) 25 mg PO DAILY [facility] Last Admin: 12/20/17 08:21 Dose: Not Given Vancomycin HCl 1,250 mg/ (Sodium Chloride) 250 mls @ 83.333 mls/hr IVPB 0300, 1100,1900 [facility] Losartan Potassium (Cozaar Tab*) 100 mg PO DAILY [facility] Last Admin: 12/20/17 08:21 Dose: Not Given Metformin HCl (Glucophage*) 1,000 mg PO BID [facility] Last Admin: 12/20/17 08:26 Dose: 1,000 mg Morphine Sulfate (Morphine Inj ((Syringe))*) 2 mg IV Q4H PRN PRN Reason: PAIN - MILD Nystatin (Nystatin Top Powder*) 1 applic TOPICAL TID [facility] Last Admin: 12/20/17 08:37 Dose: 1 applic Ondansetron HCl (Zofran Inj*) 4 mg IV Q4H PRN PRN Reason: NAUSEA/VOMITING Oxycodone HCl (Roxycodone Tab*) 5 mg PO TID PRN PRN Reason: PAIN Last Admin: 12/18/17 15:49 Dose: 5 mg Pharmacy Consult (Vancomycin Per Pharmacy*) 1 note FOLLOW UP .VANC PER PHARMACY [facility] Vital Signs - 8 hr 12/20/17 12/20/17 12/20/17 07:36 08:43 11:30 Temperature 98.3 F 99.0 F Pulse Rate 80 81 Respiratory 18 18 24 Rate Blood Pressure 141/79 125/55 (mmHg) O2 Sat by Pulse 94 94 97 Oximetry Oxygen Devices in Use Now: Nasal Cannula Appearance: chronically ill appearing. prone, sound asleep Eyes: No Scleral Icterus, PERRLA Neck: NL Appearance and Movements; NL JVP, Trachea Midline Respiratory: Symmetrical Chest Expansion and Respiratory Effort, Clear to Auscultation Cardiovascular: - - anisarca. unable to ausculate heart sounds given prone positioning. Abdominal: - - super morbid obesity, nontender. Extremities: - - anisarca in legs, flank and abdomen with 2+ pitting edema Skin: - - erythema near anisarca dependent edema. left hind foot with 5cm diameter thick eschar w/o surrounding erythema. right 1st toe bandaged w/o strikethrou, skin breaks right dorsal foot. 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 Neurological: - - moving all extremities, snoring loudly. Nutrition: Taking PO's Result Diagrams: 12/20/17 06:15 12/20/17 06:15 Additional Lab and Data: Laboratory Results - last 24 hr 12/20/17 12/20/17 12/20/17 06:15 06:15 06:15 WBC 8.7 RBC 4.82 Hgb 14.1 Hct 44 MCV 90 MCH 29 MCHC 32 RDW 17 H Plt Count 154 MPV 7.7 Neut % (Auto) 79.0 Lymph % (Auto) 7.5 L [place] % (Auto) 9.9 H Eos % (Auto) 2.8 Baso % (Auto) 0.8 Absolute Neuts (auto) 6.9 Absolute Lymphs (auto) 0.7 L Absolute Monos (auto) 0.9 H Absolute Eos (auto) 0.2 Absolute Basos (auto) 0.1 Absolute Nucleated RBC 0 Nucleated RBC % 0 INR (Anticoag Therapy) Sodium 139 Potassium 4.4 Chloride 96 L Carbon Dioxide 40 H Anion Gap 3 BUN 15 Creatinine 0.75 Est GFR ( Amer) 131.8 Est GFR (Non-Af Amer) 108.9 BUN/Creatinine Ratio 20.0 Glucose 129 H Calcium 8.9 Vancomycin Trough 17.0 12/20/17 06:15 WBC RBC Hgb Hct MCV MCH MCHC RDW Plt Count MPV Neut % (Auto) Lymph % (Auto) [place] % (Auto) Eos % (Auto) Baso % (Auto) Absolute Neuts (auto) Absolute Lymphs (auto) Absolute Monos (auto) Absolute Eos (auto) Absolute Basos (auto) Absolute Nucleated RBC Nucleated RBC % INR (Anticoag Therapy) 1.10 H Sodium Potassium Chloride Carbon Dioxide Anion Gap BUN Creatinine Est GFR ( Amer) Est GFR (Non-Af Amer) BUN/Creatinine Ratio Glucose Calcium Vancomycin Trough Microbiology and Other Data: Microbiology 12/15/17 13:35 Blood Venous Aerobic Blood Culture - Final No Growth Day 5 12/15/17 13:35 Blood Venous Anaerobic Blood Culture - Final No Growth Day 5 12/15/17 13:28 Blood Venous Aerobic Blood Culture - Final No Growth Day 5 12/15/17 13:28 Blood Venous Anaerobic Blood Culture - Final No Growth Day 5 12/15/17 13:28 Foot Left Skin and Soft Tissue MRSA/MSSA (PCR - Final Mrsa Positive S.aureus Positive 12/15/17 13:28 Foot Left Gram Stain - Final 12/15/17 13:28 Foot Left Wound Culture - Final MRSA Morganella Morganii Klebsiella Oxytoca 12/16/17 18:24 Urine Urine Culture - Final No Growth (<1,000 CFU/mL) Assess/Plan/Problems-Billing . Assessment: 52 yo man with MRSA-infected lower extremity ulceration as well as increased edema and uncontrolled hypertension. Diastolic Dysfunction with massive volume overload/anisarca. Planned I&D 12/20/[address] Hernandez. - Patient Problems (1) Bilateral lower extremity edema Current Visit: Yes Status: Acute Priority: High Code(s): R60.0 - LOCALIZED EDEMA SNOMED Code(s): 351831008 Comment: - decrease back down to Lasix 40 mg IV once a day as execeeding volume targets. NUT FORMER stable. goal net neagtive 2-2.5L daily. stopped HCTZ. - low salt diet; nutrition consult - strict io - daily weights. PLEASE OBTAIN!!! none since 12/15. Effects discharge planning as not all SNFs can transfer someone 500lbs. He has likely lost dozens of pounds of water weight since last measure. - 2/2 diastolic dysfunction. (2) Hypertension Current Visit: Yes Status: Acute Priority: High Code(s): I10 - ESSENTIAL ( PRIMARY) HYPERTENSION SNOMED Code(s): 88707884 Comment: - Losartan 100mg, Amlodipine 10mg, IV lasix hold HCTZ given good response with lasix already. (3) Infection of wound due to methicillin resistant Staphylococcus aureus (MRSA) Current Visit: Yes Status: Acute Priority: High Code(s): A49.02 - METHICILLIN RESIS STAPH INFECTION, UNSP SITE SNOMED Code(s): 475770379 Comment: - b/l lower extremity wounds - Vancomycin by pharmacy protocol - Surgery (and ortho) consults are appreciated. F/u recs. CT scan with no clear bone involvment. SubQ emphysema and can't exclude fluid collection. Planned I&D 12/20/17. npo midnight. (4) Morbid obesity with BMI of 70 and over, adult Current Visit: Yes Status: Acute Priority: High Code(s): E66.01 - MORBID ( SEVERE) OBESITY DUE TO EXCESS CALORIES; Z68.45 - BODY MASS INDEX (BMI) 70 OR GREATER, ADULT SNOMED Code(s): 494872099 Comment: - nutrition consult - SW consult (5) Diabetes mellitus Current Visit: Yes Status: Acute Code(s): E11.9 - TYPE 2 DIABETES MELLITUS WITHOUT COMPLICATIONS SNOMED Code(s): 53130087 Comment: A1C 7.9% metformin 1000mg BID (6) Acute and chronic respiratory failure with hypoxia Current Visit: Yes Status: Acute Code(s): J96.21 - ACUTE AND CHRONIC RESPIRATORY FAILURE WITH HYPOXIA SNOMED Code(s): 39154986 Comment: likely 2/2 obesity hypoventilation and acute CHF exacerbation (7) HLD (hyperlipidemia) Current Visit: Yes Status: Acute Code(s): E78.5 - HYPERLIPIDEMIA, UNSPECIFIED SNOMED Code(s): 22426381 Comment: Continue atorvastatin. (8) DVT prophylaxis Current Visit: Yes Status: Acute Code(s): DZL5254 - SNOMED Code(s): 788827829 Comment: heparin 5000U TID (9) Yeast infection of the skin Current Visit: Yes Status: Acute Code(s): B37.2 - CANDIDIASIS OF SKIN AND NAIL SNOMED Code(s): 83460937 Comment: nystatin, wound care consult, diuresis, mobility. Status and Disposition: medicine inpatient for need for further diuresis (anisarca) and I&D of left hind foot.
[2017-12-20] MEDS ORDERED: Lidocaine 2% PF* 10 ML AMP ONE (14:48)
[2017-12-20] MEDS ORDERED: Bupivacaine 0.5% PF 10 ML VIAL INJ ONE (15:22)
[2017-12-20] MEDS ORDERED: Midazolam* 1 MG/ML 2 ML VIAL (2 MG) ONE (15:33)
[2017-12-20] MEDS ORDERED: Naloxone* 0.4 MG/ML 1 ML VIAL IV PRN (15:57)
--- NOTE | 2017-12-20 16:41 | OP ---
Operative Report - Blank - Operative Report Date of Operation: 12/20/17 Note: PATIENT: Jose Xavier DATE OF : 1965 DATE OF SURGERY: 12/20/2017 SURGEON: Adam Romero MD CLERK SPECIALIST: DAYSI Leone, whos assistance was necessary for positioning, retraction, help with instrumentation, and closure. ANESTHESIOLOGIST: Dr. Alatorre PREOPERATIVE DIAGNOSIS: Left leg stump ulcer and infection POSTOPERATIVE DIAGNOSIS: Left leg stump ulcer and infection OPERATION: Left leg stump excision of ulcer, irrigation and debridement, placement of a wound VAC ANESTHESIA: MAC IMPLANTS: none TOURNIQUET TIME: none SPECIMENS: ulcer to pathology ESTIMATED BLOOD LOSS: minimal COMPLICATIONS: none STATUS: Stable from the operating room to the recovery room and then readmitted to the hospital floor INDICATIONS FOR PROCEDURE: Jose has had previous amputations, including a left leg Symes amputation by Dr. Quintero. He has had increasing erythema and pain at the base of the stump, where he has had a long-standing ulcer. He is unable to get an MRI because he weighs 500 pounds, but a CT scan was concerning for a fluid collection underneath the ulcer. He was seen and evaluated by Dr. Quintero who felt he needed an irrigation and debridement. He asked for my assistance with this today. I spoke with Jose preoperatively about the situation and Dr. Quintero's recommendation. He was in agreement and felt it had worsened. Both operative and non-operative treatment alternatives were reviewed. Further, the nature and risks of surgery were reviewed in careful detail, in the pre-operative holding area. Our discussions regarding the risks of surgery included, but were not limited to, persistent or worsening infection, wound problems, nerve injury, neuroma, RSD, persistent symptoms, blood clot, failure of the surgery, and even the remote chance of catastrophic complication, including loss of limb or . DESCRIPTION OF PROCEDURE: The patient was seen in the preoperative holding unit and informed written consent was obtained. The appropriate extremity was marked. The patient was then brought to the operating room. Anesthesia was induced. All bony prominences were padded with great care. A chlorhexidine based pre-scrub was performed followed by a chloraprep prep and drape in standard sterile fashion. A surgical safety pause was then conducted in which we confirmed the appropriate patient, extremity, planned procedure, availability of equipment, indication and administration of antibiotics, and DVT prophylaxis in the form of a compression boot on the non-surgical extremity. I began by excising the ulcer, which measured 10 cm in width and 8 cm in the anterior-posterior direction. This was sent to pathology. I then sharply excised all nonviable appearing tissue in the subcutaneous, fascial, and periosteal layers, down to bone. A 15 blade scalpel was used. No abscess or fluid collections were encountered. After all nonviable tissue had been debrided, the wound was copiously irrigated. Hemostasis was obtained. There was minimal blood loss. A wound VAC was then placed measuring 10 cm in width and 8 cm in length. This held excellent suction. The patient was then awakened from anesthesia and transferred to the recovery room in stable condition. There were no complications. All needle and sponge counts were correct at the end of the case. ATTESTATION: I attest I was present and scrubbed and performed the critical portions of the procedure myself. POSTOPERATIVE PLAN: The VAC will be changed every 3 days. He will continue on antibiotics per infectious diseases.
[2017-12-20 23:00] LABS: ABS Basophils 0.1 10^3/ul (0-0.2); ABS Eosinophils 0.2 10^3/ul (0-0.6); ABS Lymphocytes 0.6 10^3/ul (1.0-4.8); ABS Monocytes 0.9 10^3/ul (0-0.8); ABS Neutrophils 6.2 10^3/ul (1.5-7.7); ABS Nucleated RBC 0 10^3/ul; Eosinophil % 2.8 % (0-6); Hematocrit 41 % (42-52); Hemoglobin 13.2 g/dl (14.0-18.0); Lymphocyte % 7.9 % (25-47); Mean Corpuscular HGB Conc 32 g/dl (31-36); Mean Corpuscular Hemoglobin 29 pg (27-31); Mean Corpuscular Volume 91 fL (80-94); Mean Platelet Volume 7.5 um3 (7.4-10.4); Nucleated Red Blood Cells % 0; Platelet Count 153 10^3/ul (150-450); Red Blood Count 4.54 10^6/ul (4.00-5.40); Red Cell Distribution Width 16 % (10.5-15)
--- NOTE | 2017-12-21 00:54 | PN ---
Progress Note - Progress Note Date of Service: 12/21/17 Note: CAT response, called for unexpected post-operative bleeding Mr Xavier underwent a R ankle stump ulcer debridement and I&D today with post- operative application of a wound vac. Nursing reports ~500cc blood colored fluid in canister which has been replaced as well as bloody soaking of the bed. Mr Xavier reports no change in condition. Pain is reasonably controlled, no SOB, palpitations, chest pain, or light-headedness. Repeat HGB is down slightly from baseline at 13.2. Vitals are stable BP equal to somewhat greater than prior to surgery. HR 80-90s. saO2 mid- to high 90s. Case reviewed with Benjamín Gupta MD orthopedic surgery on-call. At this time, I agree there is no indication for return to OR. He recommended pressure dressing and monitoring. I am comfortable managing his care & will keep him apprised of any concerns. After pressure dressing was applied by nursing, it was noted his wound vac had clotted off and was not functioning. As such, the wound vac was taken down leaving the sponge in place. A 175cc (measured via volume displacement) clot was adherent to the sponge and I removed this. There was a steady slow trickle of blood from the sponge. The stump surrounding the wound vac sponge was cleaned and dried. Wound vac was replaced with further support via tegaderm applied. Good seal was demonstrated and a pressure dressing of ABDs & foam tape reapplied. Mr Xavier tolerated the dressing change well. Will check H&H in the AM , continue monitoring vitals. Dr Gupta will evaluate him in the AM.
[2017-12-21 04:14] LABS: Hematocrit 40 % (42-52); Hemoglobin 12.8 g/dl (14.0-18.0)
[2017-12-21] MEDS: Vancomycin(*) 1,250 MG in NS 0.9% 250 ML* 250 ML IVPB SCH ×3 (04:29→19:33)
[2017-12-21] MEDS ORDERED: Furosemide IV* 10 MG/ML VIAL (40 MG) IV SCH (08:00)
[2017-12-21] MEDS: Atorvastatin* 20 MG TAB PO SCH (08:35)
[2017-12-21] MEDS: Nystatin TOP POWDER* 15 GM BTL TOPICAL SCH ×2 (08:35→12:09)
[2017-12-21] MEDS: metFORMIN* 1,000 MG TAB PO SCH ×2 (08:35→20:21)
[2017-12-21] MEDS: Losartan TAB* 25 MG PO SCH (08:35)
[2017-12-21] MEDS: amLODIPine TAB* 5 MG PO SCH (08:35)
[2017-12-21 16:20] LABS: Hematocrit 40 % (42-52); Hemoglobin 12.7 g/dl (14.0-18.0)
--- NOTE | 2017-12-21 16:54 | PN ---
Subjective Date of Service: 12/21/17 Interval History: Patient has no acute complaints today. Pain controlled in LLE at rest. Denies SOB, N/V, F/C, abdominal pain, dizziness, palpitations, CP, or other alarming symptoms. Patient continues to refuse daily weights. Patient states that he just does not feel that it is something he wants to do. Patient instructed on the importance of monitoring his weight and he still refuses. Patient had no more profuse bleeding from LLE. Family History: Unchanged from Admission Social History: Unchanged from Admission Past Medical History: Unchanged from Admission Objective Active Medications: Acetaminophen (Tylenol Tab*) 650 mg PO Q4H PRN PRN Reason: FEVER/PAIN Amlodipine Besylate (Norvasc Tab*) 10 mg PO DAILY [facility] Last Admin: 12/21/17 08:35 Dose: 10 mg Atorvastatin Calcium (Lipitor*) 20 mg PO DAILY [facility] Last Admin: 12/21/17 08:35 Dose: 20 mg Furosemide (Lasix Iv*) 20 mg IV 0800 [facility] Vancomycin HCl 1,250 mg/ (Sodium Chloride) 250 mls @ 83.333 mls/hr IVPB 0300, 1100,1900 [facility] Last Admin: 12/21/17 10:26 Dose: 83.333 mls/hr Losartan Potassium (Cozaar Tab*) 100 mg PO DAILY [facility] Last Admin: 12/21/17 08:35 Dose: 100 mg Metformin HCl (Glucophage*) 1,000 mg PO BID [facility] Last Admin: 12/21/17 08:35 Dose: 1,000 mg Morphine Sulfate (Morphine Inj ((Syringe))*) 2 mg IV Q4H PRN PRN Reason: PAIN - MILD Nystatin (Nystatin Top Powder*) 1 applic TOPICAL TID [facility] Last Admin: 12/21/17 12:09 Dose: Not Given Ondansetron HCl (Zofran Inj*) 4 mg IV Q4H PRN PRN Reason: NAUSEA/VOMITING Oxycodone HCl (Roxycodone Tab*) 5 mg PO TID PRN PRN Reason: PAIN Last Admin: 12/18/17 15:49 Dose: 5 mg Pharmacy Consult (Vancomycin Per Pharmacy*) 1 note FOLLOW UP .VANC PER PHARMACY [facility] Pharmacy Profile Note (Vancomycin Trough Check) 1 note FOLLOW UP 1030 ONE Stop: 12/22/17 10:31 Vital Signs - 8 hr 12/21/17 12/21/17 12/21/17 12:16 15:35 15:45 Temperature 97.9 F 98.5 F Pulse Rate 84 82 Respiratory 18 22 Rate Blood Pressure 114/58 122/66 (mmHg) O2 Sat by Pulse 99 99 95 Oximetry Oxygen Devices in Use Now: Nasal Cannula Appearance: Patient is a 52yo severely obese male who appears older than stated age and is sitting in the bed in [facility]. Eyes: No Scleral Icterus, PERRLA Ears/Nose/Mouth/Throat: NL Teeth, Lips, Gums, Clear Oropharnyx, Mucous Membranes Moist Neck: NL Appearance and Movements; NL JVP, Trachea Midline Respiratory: Symmetrical Chest Expansion and Respiratory Effort, Clear to Auscultation Cardiovascular: NL Sounds; No Murmurs; No JVD, RRR Abdominal: NL Sounds; No Tenderness; No Distention, No Hepatosplenomegaly, - - Limited due to body habitus. Lymphatic: No Cervical Adenopathy Extremities: No Clubbing, Cyanosis, - - LLE surgically absent with wound vac. 2 + edema in RLE. Skin: No Nodules or Sclerosis Neurological: Alert and Oriented x 3, NL Sensation, NL Muscle Strength and Tone , - - CN II-XII intact. Result Diagrams: 12/21/17 16:14 12/21/17 04:03 Additional Lab and Data: Laboratory Results - last 24 hr Microbiology and Other Data: Microbiology 12/15/17 13:35 Blood Venous Aerobic Blood Culture - Final No Growth Day 5 12/15/17 13:35 Blood Venous Anaerobic Blood Culture - Final No Growth Day 5 12/15/17 13:28 Blood Venous Aerobic Blood Culture - Final No Growth Day 5 12/15/17 13:28 Blood Venous Anaerobic Blood Culture - Final No Growth Day 5 12/15/17 13:28 Foot Left Skin and Soft Tissue MRSA/MSSA (PCR - Final Mrsa Positive S.aureus Positive 12/15/17 13:28 Foot Left Gram Stain - Final 12/15/17 13:28 Foot Left Wound Culture - Final MRSA Morganella Morganii Klebsiella Oxytoca 12/16/17 18:24 Urine Urine Culture - Final No Growth (<1,000 CFU/mL) Assess/Plan/Problems-Billing . Assessment: 52 yo man with MRSA-infected lower extremity ulceration as well as increased edema and uncontrolled hypertension. Diastolic Dysfunction with massive volume overload/anasarca. S/P I&D 12/20/[address] Hernandez with mild post-operative bleeding and wound vac placement. - Patient Problems (1) Infection of wound due to methicillin resistant Staphylococcus aureus (MRSA) Current Visit: Yes Status: Acute Priority: High Code(s): A49.02 - METHICILLIN RESIS STAPH INFECTION, UNSP SITE SNOMED Code(s): 316992281 Comment: Bilateral lower extremity wounds Vancomycin by pharmacy protocol Transition to Doxycycline tomorrow per ID. Surgery (and ortho) consults are appreciated. CT scan with no clear bone involvment. SubQ emphysema and can't exclude fluid collection. S/P I&D with pathology pending (2) Acute and chronic respiratory failure with hypoxia Current Visit: Yes Status: Acute Code(s): J96.21 - ACUTE AND CHRONIC RESPIRATORY FAILURE WITH HYPOXIA SNOMED Code(s): 82835933 Comment: On 3L O2. With hypercapnea. Likely 2/2 obesity hypoventilation and acute CHF exacerbation (3) Bilateral lower extremity edema Current Visit: Yes Status: Acute Priority: High Code(s): R60.0 - LOCALIZED EDEMA SNOMED Code(s): 097597450 Comment: Decrease back down to Lasix 20 mg IV once a day as exceeding volume targets. Goal net neagtive 2-2.5L daily. stopped HCTZ. Low salt diet; Nutrition consult Strict I/O Not compliant with daily weights. Related to Diastolic dysfunction and fluid overload. (4) Diabetes mellitus Current Visit: Yes Status: Acute Code(s): E11.9 - TYPE 2 DIABETES MELLITUS WITHOUT COMPLICATIONS SNOMED Code(s): 88172696 Comment: A1C 7.9% Metformin 1000mg BID Monitor finger sticks. Good control. (5) HLD (hyperlipidemia) Current Visit: Yes Status: Acute Code(s): E78.5 - HYPERLIPIDEMIA, UNSPECIFIED SNOMED Code(s): 92977363 Comment: Continue atorvastatin. (6) Hypertension Current Visit: Yes Status: Acute Priority: High Code(s): I10 - ESSENTIAL ( PRIMARY) HYPERTENSION SNOMED Code(s): 20221562 Comment: Losartan 100mg, Amlodipine 10mg, IV lasix Normotensive (7) Hypercapnia with mixed acid-base disorder Current Visit: Yes Status: Acute Code(s): E87.4 - MIXED DISORDER OF ACID- BASE BALANCE SNOMED Code(s): 46406332 Comment: Critically elevated Carbon dioxide today. VBG shows elevated CO2 and Bicarbonate likely due to contraction alkalosis and [place]/OHS. Decrease lasix. Will monitor VBG and consider acetazolamide therapy given patient refuses CPAP therapy. (8) Morbid obesity with BMI of 70 and over, adult Current Visit: Yes Status: Acute Priority: High Code(s): E66.01 - MORBID ( SEVERE) OBESITY DUE TO EXCESS CALORIES; Z68.45 - BODY MASS INDEX (BMI) 70 OR GREATER, ADULT SNOMED Code(s): 710174689 Comment: Nutrition consult SW consult Patient refuses weight monitoring. (9) Hemorrhage Current Visit: Yes Status: Acute Comment: Post operative hemorrhage. Controlled. Minor drop in H/H, continue to monitor. (10) Yeast infection of the skin Current Visit: Yes Status: Acute Code(s): B37.2 - CANDIDIASIS OF SKIN AND NAIL SNOMED Code(s): 69555015 Comment: Not severe, continue nystatin and non-pharmacologic therapies. (11) DVT prophylaxis Current Visit: Yes Status: Acute Code(s): WYM6962 - SNOMED Code(s): 594221869 Comment: Heparin SubQ Status and Disposition: Inpatient. Will likely need KEITH at discharge.
[2017-12-22] MEDS: Vancomycin(*) 1,250 MG in NS 0.9% 250 ML* 250 ML IVPB SCH (02:53)
[2017-12-22] MEDS: Nystatin TOP POWDER* 15 GM BTL TOPICAL SCH ×4 (03:40→20:35)
[2017-12-22 05:49] LABS: ABS Basophils 0.1 10^3/ul (0-0.2); ABS Eosinophils 0.3 10^3/ul (0-0.6); ABS Lymphocytes 0.6 10^3/ul (1.0-4.8); ABS Monocytes 0.7 10^3/ul (0-0.8); ABS Nucleated RBC 0 10^3/ul; Eosinophil % 5.1 % (0-6); Hematocrit 40 % (42-52); Hemoglobin 12.8 g/dl (14.0-18.0); Lymphocyte % 10.9 % (25-47); Mean Corpuscular HGB Conc 32 g/dl (31-36); Mean Corpuscular Hemoglobin 29 pg (27-31); Mean Corpuscular Volume 91 fL (80-94); Mean Platelet Volume 7.5 um3 (7.4-10.4); Nucleated Red Blood Cells % 0; Platelet Count 156 10^3/ul (150-450); Red Blood Count 4.44 10^6/ul (4.00-5.40); Red Cell Distribution Width 16 % (10.5-15); White Blood Count 5.7 10^3/ul (3.5-10.8)
[2017-12-22 06:06] LABS: EGFR Non-African American 140.9 (>60)
[2017-12-22] MEDS ORDERED: Magnesium Sulf 4 GM/100 ML IV* 4,000 MG/100 ML BAG IVPB ONE (06:47)
[2017-12-22] MEDS: oxyCODONE TAB* 5 MG TAB PO PRN (07:04)
[2017-12-22] MEDS: metFORMIN* 1,000 MG TAB PO SCH ×2 (08:07→20:35)
[2017-12-22] MEDS: amLODIPine TAB* 5 MG PO SCH (08:07)
[2017-12-22] MEDS: Atorvastatin* 20 MG TAB PO SCH (08:07)
[2017-12-22] MEDS: Losartan TAB* 25 MG PO SCH (08:07)
[2017-12-22] MEDS: Furosemide IV* 10 MG/ML VIAL (40 MG) IV SCH (08:07)
[2017-12-22] MEDS ORDERED: Albuterol/Ipratropium NEB.SOL* Albuterol 2.5 MG/Ipratropium 0.5 MG 3 ML INH PRN (09:52)
[2017-12-22] MEDS ORDERED: Vancomycin Trough Check NOTE FOLLOW UP ONE (10:30)
--- NOTE | 2017-12-22 11:32 | PN ---
Progress Note - Progress Note Date of Service: 12/22/17 SOAP: Subjective: Pt is doing well. Had some throbbing in shoulder controlled with oxycodone. Denies F/C, Cp/SOB, F/C. Doing well otherwise Objective: PE- 52 y/o WDWN M NAD, A&Ox3 LLE- dressing c/d/i, wound vac intact and functioning, thigh nontender, NVI Vital Signs Temp Pulse Resp BP Pulse Ox 97.4 F 76 20 103/50 99 12/22/17 11:08 12/22/17 11:08 12/22/17 11:08 12/22/17 11:08 12/22/17 11:08 Laboratory Results - last 24 hr 12/21/17 12/21/17 12/22/17 16:14 16:14 05:37 WBC RBC Hgb 12.7 L Hct 40 L MCV MCH MCHC RDW Plt Count MPV Neut % (Auto) Lymph % (Auto) [place] % (Auto) Eos % (Auto) Baso % (Auto) Absolute Neuts (auto) Absolute Lymphs (auto) Absolute Monos (auto) Absolute Eos (auto) Absolute Basos (auto) Absolute Nucleated RBC Nucleated RBC % VBG pH 7.39 VBG pCO2 91 H VBG pO2 52 H VBG HCO3 43.6 H VBG O2 Saturation 86.2 H VBG Base Excess 24.4 H Sodium 141 Potassium 4.2 Chloride 94 L Carbon Dioxide 41 H* Anion Gap 6 BUN 12 Creatinine 0.60 L Est GFR ( Amer) 170.5 Est GFR (Non-Af Amer) 140.9 BUN/Creatinine Ratio 20.0 Glucose 135 H Calcium 8.9 Magnesium 1.1 L 12/22/17 05:37 WBC 5.7 RBC 4.44 Hgb 12.8 L Hct 40 L MCV 91 MCH 29 MCHC 32 RDW 16 H Plt Count 156 MPV 7.5 Neut % (Auto) 70.6 Lymph % (Auto) 10.9 L [place] % (Auto) 12.2 H Eos % (Auto) 5.1 Baso % (Auto) 1.2 Absolute Neuts (auto) 4.0 Absolute Lymphs (auto) 0.6 L Absolute Monos (auto) 0.7 Absolute Eos (auto) 0.3 Absolute Basos (auto) 0.1 Absolute Nucleated RBC 0 Nucleated RBC % 0 VBG pH VBG pCO2 VBG pO2 VBG HCO3 VBG O2 Saturation VBG Base Excess Sodium Potassium Chloride Carbon Dioxide Anion Gap BUN Creatinine Est GFR ( Amer) Est GFR (Non-Af Amer) BUN/Creatinine Ratio Glucose Calcium Magnesium Assessment: Left leg stump ulcer and infection S/P left leg stump I&D and placement of wound vac on 12/[address] Romero Plan: Appreciate hospitalist mgmt Cont pain control Cont PT/OT Cont abx per ID Wound vac change every day, to be changed Sunday 12/24
[2017-12-22 11:33] LABS: EGFR Non-African American 138.3 (>60)
[2017-12-22 11:51] LABS: Vancomycin Trough 16.8 mcg/mL
--- NOTE | 2017-12-22 15:31 | PN ---
Subjective Date of Service: 12/22/17 Interval History: Patient had intermittent pain in shoulder and stump which was relieved with oxycodone. Patient denies shortness of breath, chest pain, dizziness, palpitations, F/C, abdominal pain, diarrhea, or other pain. Patient states that he has never been willing to try CPAP because the thought of it makes him claustrophobic. When educated on the benefits of CPAP he stated eh would consider it but needed time to think about it. Family History: Unchanged from Admission Social History: Unchanged from Admission Past Medical History: Unchanged from Admission Objective Active Medications: Acetaminophen (Tylenol Tab*) 650 mg PO Q4H PRN PRN Reason: FEVER/PAIN Albuterol/Ipratropium (Duoneb (Albuterol 2.5 Mg/Ipratropium 0.5 Mg)) 1 neb INH Q4H PRN PRN Reason: SOB/WHEEZING Amlodipine Besylate (Norvasc Tab*) 10 mg PO DAILY [facility] Last Admin: 12/22/17 08:07 Dose: 10 mg Atorvastatin Calcium (Lipitor*) 20 mg PO DAILY [facility] Last Admin: 12/22/17 08:07 Dose: 20 mg Doxycycline Hyclate (Vibramycin Cap(*)) 100 mg PO BID [facility] Furosemide (Lasix Iv*) 20 mg IV 0800 [facility] Last Admin: 12/22/17 08:07 Dose: 20 mg Losartan Potassium (Cozaar Tab*) 100 mg PO DAILY [facility] Last Admin: 12/22/17 08:07 Dose: 100 mg Metformin HCl (Glucophage*) 1,000 mg PO BID [facility] Last Admin: 12/22/17 08:07 Dose: 1,000 mg Morphine Sulfate (Morphine Inj ((Syringe))*) 2 mg IV Q4H PRN PRN Reason: PAIN - MILD Nystatin (Nystatin Top Powder*) 1 applic TOPICAL TID [facility] Last Admin: 12/22/17 14:04 Dose: 1 applic Ondansetron HCl (Zofran Inj*) 4 mg IV Q4H PRN PRN Reason: NAUSEA/VOMITING Oxycodone HCl (Roxycodone Tab*) 5 mg PO TID PRN PRN Reason: PAIN Last Admin: 12/22/17 07:04 Dose: 5 mg Vital Signs - 8 hr 12/22/17 12/22/17 12/22/17 07:25 09:17 09:56 Temperature 97.7 F Pulse Rate 85 Respiratory 19 16 20 Rate Blood Pressure 148/73 (mmHg) O2 Sat by Pulse 96 96 Oximetry 12/22/17 11:08 Temperature 97.4 F Pulse Rate 76 Respiratory 20 Rate Blood Pressure 103/50 (mmHg) O2 Sat by Pulse 99 Oximetry Oxygen Devices in Use Now: Nasal Cannula Appearance: Patient is a 52yo male who appears stated age and is sitting in the bed in NAD. Eyes: No Scleral Icterus, PERRLA Ears/Nose/Mouth/Throat: NL Teeth, Lips, Gums, Clear Oropharnyx, Mucous Membranes Moist Neck: NL Appearance and Movements; NL JVP, Trachea Midline Respiratory: Symmetrical Chest Expansion and Respiratory Effort, Clear to Auscultation, - - Diminished Cardiovascular: NL Sounds; No Murmurs; No JVD, RRR, No Edema Abdominal: NL Sounds; No Tenderness; No Distention, No Hepatosplenomegaly, - - Limited by body habitus. Lymphatic: No Cervical Adenopathy Extremities: No Clubbing, Cyanosis, - - Right leg surgically shortened with wound vac in place. Skin: No Nodules or Sclerosis, - - Yeasty Rashes in Skin Folds Neurological: Alert and Oriented x 3, NL Sensation, NL Muscle Strength and Tone , - - CN II-XII intact. Lines/Tubes/Other Access: Clean, Dry and Intact [place] - Hematuria. Result Diagrams: 12/22/17 05:37 12/22/17 10:58 Additional Lab and Data: Laboratory Results - last 24 hr Microbiology and Other Data: Microbiology 12/15/17 13:35 Blood Venous Aerobic Blood Culture - Final No Growth Day 5 12/15/17 13:35 Blood Venous Anaerobic Blood Culture - Final No Growth Day 5 12/15/17 13:28 Blood Venous Aerobic Blood Culture - Final No Growth Day 5 12/15/17 13:28 Blood Venous Anaerobic Blood Culture - Final No Growth Day 5 12/15/17 13:28 Foot Left Skin and Soft Tissue MRSA/MSSA (PCR - Final Mrsa Positive S.aureus Positive 12/15/17 13:28 Foot Left Gram Stain - Final 12/15/17 13:28 Foot Left Wound Culture - Final MRSA Morganella Morganii Klebsiella Oxytoca 12/16/17 18:24 Urine Urine Culture - Final No Growth (<1,000 CFU/mL) Assess/Plan/Problems-Billing . Assessment: 52 yo man with MRSA-infected lower extremity ulceration as well as increased edema and uncontrolled hypertension. Diastolic Dysfunction with massive volume overload/anasarca. S/P I&D 12/20/[address] Hernandez with mild post-operative bleeding and wound vac placement. - Patient Problems (1) Infection of wound due to methicillin resistant Staphylococcus aureus (MRSA) Current Visit: Yes Status: Acute Priority: High Code(s): A49.02 - METHICILLIN RESIS STAPH INFECTION, UNSP SITE SNOMED Code(s): 980857445 Comment: Bilateral lower extremity wounds Vancomycin stopped. Transition to Doxycycline BID. Surgery (and ortho) consults are appreciated. CT scan with no clear bone involvment. SubQ emphysema and can't exclude fluid collection. S/P I&D with pathology pending No signs of sepsis. Continue wound vac. (2) Acute and chronic respiratory failure with hypoxia Current Visit: Yes Status: Acute Code(s): J96.21 - ACUTE AND CHRONIC RESPIRATORY FAILURE WITH HYPOXIA SNOMED Code(s): 05421601 Comment: On 3L O2. With hypercapnea which is improving. Likely 2/2 obesity hypoventilation and acute CHF exacerbation (3) Hematuria Current Visit: Yes Status: Acute Code(s): R31.9 - HEMATURIA, UNSPECIFIED SNOMED Code(s): 08514616 Comment: Hematuria for several days after [place] insertion. US of kidneys and bladder and hold heparin for now. No drop on H/H. (4) Diabetes mellitus Current Visit: Yes Status: Acute Code(s): E11.9 - TYPE 2 DIABETES MELLITUS WITHOUT COMPLICATIONS SNOMED Code(s): 27314474 Comment: A1C 7.9% Metformin 1000mg BID Good AM control. (5) Bilateral lower extremity edema Current Visit: Yes Status: Acute Priority: High Code(s): R60.0 - LOCALIZED EDEMA SNOMED Code(s): 578790592 Comment: Decrease back down to Lasix 20 mg IV once a day as exceeding volume targets. Goal net neagtive 2-2.5L daily. stopped HCTZ. Low salt diet; Nutrition consult Strict I/O Not compliant with daily weights. Related to Diastolic dysfunction and fluid overload. Patient is over 20L negative this admission. (6) HLD (hyperlipidemia) Current Visit: Yes Status: Acute Code(s): E78.5 - HYPERLIPIDEMIA, UNSPECIFIED SNOMED Code(s): 58983015 Comment: Continue atorvastatin. (7) Hypertension Current Visit: Yes Status: Acute Priority: High Code(s): I10 - ESSENTIAL ( PRIMARY) HYPERTENSION SNOMED Code(s): 50785012 Comment: Losartan 100mg, Amlodipine 10mg, IV lasix Normotensive (8) Hypercapnia with mixed acid-base disorder Current Visit: Yes Status: Acute Code(s): E87.4 - MIXED DISORDER OF ACID- BASE BALANCE SNOMED Code(s): 28523121 Comment: Critically elevated Carbon dioxide. Improving today. VBG shows elevated CO2 and Bicarbonate likely due to contraction alkalosis and [place]ADISE/OHS. Decrease lasix. Will monitor VBG if needed and consider acetazolamide therapy given patient refuses CPAP therapy. Patient alert and not symptomatically hypercarbic. (9) Morbid obesity with BMI of 70 and over, adult Current Visit: Yes Status: Acute Priority: High Code(s): E66.01 - MORBID ( SEVERE) OBESITY DUE TO EXCESS CALORIES; Z68.45 - BODY MASS INDEX (BMI) 70 OR GREATER, ADULT SNOMED Code(s): 334270471 Comment: Nutrition consult SW consult Patient refuses weight monitoring. (10) Hemorrhage Current Visit: Yes Status: Acute Comment: Post operative hemorrhage. Controlled. Minor drop in H/H, continue to monitor. (11) Yeast infection of the skin Current Visit: Yes Status: Acute Code(s): B37.2 - CANDIDIASIS OF SKIN AND NAIL SNOMED Code(s): 67820934 Comment: Not severe, continue nystatin and non-pharmacologic therapies. (12) DVT prophylaxis Current Visit: Yes Status: Acute Code(s): JBH3878 - SNOMED Code(s): 873235569 Comment: Heparin SubQ Status and Disposition: Inpatient. Will likely need KEITH at discharge.
--- NOTE | 2017-12-22 19:51 | RAD ---
INDICATION: Hematuria. COMPARISON: There are no prior studies available for comparison. TECHNIQUE: Multiple real-time images of the kidneys and urinary bladder were obtained. FINDINGS: The right kidney was normal in size shape and echogenicity measuring 13.2 x 6.7 x 6.4 cm. The left kidney is obscured by overlying bowel gas only a portion of the upper pole is visualized. There is a Gore catheter present, the urinary bladder is not visualized and is likely empty. IMPRESSION: 1. LIMITED STUDY, THE LEFT KIDNEY IS OBSCURED BY OVERLYING BOWEL GAS AND THE BLADDER APPEARS EMPTY WITH A GORE CATHETER PRESENT. 2. THE RIGHT KIDNEY APPEARS TO BE WITHIN NORMAL LIMITS. 3. IF THE PATIENT'S SYMPTOMS PERSIST CONSIDER A CT IMAGING FOR FURTHER EVALUATION.
[2017-12-22] MEDS: DOXYcycline CAP(*) 100 MG PO SCH (20:35)
[2017-12-23 07:02] LABS: ABS Basophils 0.1 10^3/ul (0-0.2); ABS Eosinophils 0.3 10^3/ul (0-0.6); ABS Lymphocytes 0.7 10^3/ul (1.0-4.8); ABS Monocytes 0.8 10^3/ul (0-0.8); ABS Neutrophils 4.1 10^3/ul (1.5-7.7); ABS Nucleated RBC 0 10^3/ul; Eosinophil % 4.5 % (0-6); Hematocrit 37 % (42-52); Hemoglobin 11.8 g/dl (14.0-18.0); Lymphocyte % 12.1 % (25-47); Mean Corpuscular HGB Conc 32 g/dl (31-36); Mean Corpuscular Hemoglobin 29 pg (27-31); Mean Corpuscular Volume 91 fL (80-94); Mean Platelet Volume 7.7 um3 (7.4-10.4); Nucleated Red Blood Cells % 0.1; Platelet Count 163 10^3/ul (150-450); Red Blood Count 4.09 10^6/ul (4.00-5.40); Red Cell Distribution Width 17 % (10.5-15)
[2017-12-23 07:20] LABS: EGFR Non-African American 138.3 (>60)
[2017-12-23] MEDS: Losartan TAB* 25 MG PO SCH (08:46)
[2017-12-23] MEDS: Atorvastatin* 20 MG TAB PO SCH (08:46)
[2017-12-23] MEDS: amLODIPine TAB* 5 MG PO SCH (08:46)
[2017-12-23] MEDS: metFORMIN* 1,000 MG TAB PO SCH (08:46)
[2017-12-23] MEDS: Furosemide IV* 10 MG/ML VIAL (40 MG) IV SCH (08:47)
[2017-12-23] MEDS: DOXYcycline CAP(*) 100 MG PO SCH ×2 (08:47→21:33)
[2017-12-23] MEDS ORDERED: Dextrose 50% Syringe 50 ML* 25 GM/50 ML SYRINGE IV PUSH PRN (08:50)
[2017-12-23] MEDS ORDERED: Iodixanol* (CONTRAST) 320 MG/ML 100 ML SDV IV ONE (08:56)
[2017-12-23] MEDS ORDERED: Magnesium Sulfate IV* 3 GM in NS 0.9% 100 ML* 100 ML IVPB ONE (09:00)
[2017-12-23] MEDS: Nystatin TOP POWDER* 15 GM BTL TOPICAL SCH ×3 (11:06→21:35)
[2017-12-23] MEDS: acetaZOLAMIDE TAB* 250 MG PO SCH ×2 (11:06→21:33)
--- NOTE | 2017-12-23 11:32 | RAD ---
INDICATION: Hematuria. COMPARISON: Comparison is made with a prior renal ultrasound from December 22, 2017. TECHNIQUE: A CT scan of the abdomen and pelvis was performed with intravenous and without oral contrast following intravenous injection of 141 ml of Visipaque 320 nonionic contrast. Contiguous axial sections were obtained from the lung bases through the symphysis pubis. Images were reconstructed in the coronal and sagittal planes. The exam is limited due to the patient's body habitus. In addition, a portion of the anterolateral aspect of the abdomen on the left side is cut off on the images. FINDINGS: The lung bases are clear. No pleural effusion is present. The liver and spleen are mildly enlarged without significant focal abnormality. No calcified gallstones are seen. No pancreatic calcifications or ductal distention is noted. The adrenal glands appear mildly prominent suggesting the possibility of adrenal gland hyperplasia. The kidneys are heterogeneous in density due to artifact limiting evaluation. There is a hypodense lesion in the superior pole of the left kidney measuring 1.6 cm in size. This is not well-defined due to artifact although likely represents a simple or complex cyst. No hydronephrosis is seen. No renal calculi are appreciated. There is diffuse thickening of the urinary bladder wall which is likely due to incomplete distention. There is a Painting catheter present. The aorta is normal in caliber with moderate calcific plaque present. There is a mildly prominent 1.1 cm retroperitoneal lymph node in the left periaortic region. There are also slightly prominent bilateral external iliac chain lymph nodes measuring 1.5 cm in size. The stomach, small and large bowel appear nondistended. The appendix is not well visualized. There are scattered diverticuli within the colon. There is no evidence for diverticulitis or colitis. A portion of the descending and transverse colon are cut off on the images. No free intraperitoneal air or fluid is seen. No significant focal osseous abnormality is seen. IMPRESSION: 1. SEVERELY LIMITED STUDY. 2. SMALL HYPODENSE LEFT RENAL LESION LIKELY REPRESENTING A SIMPLE OR COMPLEX CYST. RECOMMEND A FOLLOW-UP RENAL ULTRASOUND FOR FURTHER EVALUATION. 3. DIFFUSE THICKENING OF THE WALL OF THE BLADDER LIKELY DUE TO INCOMPLETE DISTENTION. RECOMMEND UROLOGIC CONSULTATION FOR THE PATIENT'S HEMATURIA. 4. MILDLY PROMINENT RETROPERITONEAL LYMPH NODES. 5. MILD HEPATOSPLENOMEGALY.
--- NOTE | 2017-12-23 11:49 | PN ---
Progress Note - Progress Note Date of Service: 12/23/17 SOAP: Subjective: Pt is doing well. Pain controlled. Denies Cp/SOB or F/C. Doing well otherwise Objective: 52 y/o WDWN NAD, A&Ox3 LLE-dressing c/d/i, wound vac intact and draining adequately, NVI Vital Signs Temp Pulse Resp BP Pulse Ox 98.1 F 82 21 125/71 100 12/23/17 07:32 12/23/17 07:32 12/23/17 07:32 12/23/17 07:32 12/23/17 07:32 Laboratory Results - last 24 hr 12/22/17 12/23/17 12/23/17 10:58 06:55 06:55 WBC 6.0 RBC 4.09 Hgb 11.8 L Hct 37 L MCV 91 MCH 29 MCHC 32 RDW 17 H Plt Count 163 MPV 7.7 Neut % (Auto) 69.4 Lymph % (Auto) 12.1 L [place] % (Auto) 12.7 H Eos % (Auto) 4.5 Baso % (Auto) 1.3 Absolute Neuts (auto) 4.1 Absolute Lymphs (auto) 0.7 L Absolute Monos (auto) 0.8 Absolute Eos (auto) 0.3 Absolute Basos (auto) 0.1 Absolute Nucleated RBC 0 Nucleated RBC % 0.1 VBG pH VBG pCO2 VBG pO2 VBG HCO3 VBG O2 Saturation VBG Base Excess Sodium 140 Potassium 4.0 Chloride 94 L Carbon Dioxide 45 H* Anion Gap 1 L BUN 12 Creatinine 0.61 L Est GFR ( Amer) 167.3 Est GFR (Non-Af Amer) 138.3 BUN/Creatinine Ratio 19.7 Glucose 130 H Calcium 8.5 L Magnesium 1.4 L Vancomycin Trough 16.8 12/23/17 06:55 WBC RBC Hgb Hct MCV MCH MCHC RDW Plt Count MPV Neut % (Auto) Lymph % (Auto) [place] % (Auto) Eos % (Auto) Baso % (Auto) Absolute Neuts (auto) Absolute Lymphs (auto) Absolute Monos (auto) Absolute Eos (auto) Absolute Basos (auto) Absolute Nucleated RBC Nucleated RBC % VBG pH 7.36 VBG pCO2 88 H VBG pO2 61 H VBG HCO3 40.3 H VBG O2 Saturation 92.3 H VBG Base Excess 20.0 H Sodium Potassium Chloride Carbon Dioxide Anion Gap BUN Creatinine Est GFR ( Amer) Est GFR (Non-Af Amer) BUN/Creatinine Ratio Glucose Calcium Magnesium Vancomycin Trough Assessment: Left leg stump ulcer and infection S/P left leg stump I&D and placement of wound vac on 12/[address] Romero Plan: Appreciate hospitalist mgmt Cont pain control Cont PT/OT, NWB LLE Cont abx per ID Ortho to change Wound vac on Sunday 12/24
[2017-12-23] MEDS: Insulin LISPRO* 1 UNITS UNIT SUBCUT SCH ×3 (12:37→21:27)
--- NOTE | 2017-12-23 14:32 | PN ---
Subjective Date of Service: 12/23/17 Interval History: Patient is asymptomatic today. Patient denies CP, SOB, N/V, abdominal pain, diarrhea, constipation, dizziness, palpitations, F/C, pain in amputated foot, or other pain. Patient states that his urine changed color 2 weeks before he came into the hospital but that he didn't think there was teja blood in it and does not remember ever having blood in his urine before. Family History: Unchanged from Admission Social History: Unchanged from Admission Past Medical History: Unchanged from Admission Objective Active Medications: Acetaminophen (Tylenol Tab*) 650 mg PO Q4H PRN PRN Reason: FEVER/PAIN Acetazolamide (Diamox Tab*) 250 mg PO BID [facility] Stop: 12/25/17 21:01 Last Admin: 12/23/17 11:06 Dose: 250 mg Albuterol/Ipratropium (Duoneb (Albuterol 2.5 Mg/Ipratropium 0.5 Mg)) 1 neb INH Q4H PRN PRN Reason: SOB/WHEEZING Amlodipine Besylate (Norvasc Tab*) 10 mg PO DAILY [facility] Last Admin: 12/23/17 08:46 Dose: 10 mg Atorvastatin Calcium (Lipitor*) 20 mg PO DAILY [facility] Last Admin: 12/23/17 08:46 Dose: 20 mg Dextrose (D50w Syringe 50 Ml*) 12.5 gm IV PUSH .FOR FS < 60 - SS PRN PRN Reason: FS < 60 Doxycycline Hyclate (Vibramycin Cap(*)) 100 mg PO BID [facility] Last Admin: 12/23/17 08:47 Dose: 100 mg Furosemide (Lasix Iv*) 10 mg IV 0800 [facility] Insulin Human Lispro (Humalog*) 0 units SUBCUT ACHS [facility]; Protocol Last Admin: 12/23/17 12:37 Dose: Not Given Losartan Potassium (Cozaar Tab*) 100 mg PO DAILY [facility] Last Admin: 12/23/17 08:46 Dose: 100 mg Mometasone Furoate/Formoterol Fumar (Dulera 200/5 Mdi*) 2 puff INH BID [facility] Nystatin (Nystatin Top Powder*) 1 applic TOPICAL TID [facility] Last Admin: 12/23/17 14:20 Dose: Not Given Ondansetron HCl (Zofran Inj*) 4 mg IV Q4H PRN PRN Reason: NAUSEA/VOMITING Oxycodone HCl (Roxycodone Tab*) 5 mg PO TID PRN PRN Reason: PAIN Last Admin: 12/22/17 07:04 Dose: 5 mg Vital Signs - 8 hr 12/23/17 12/23/17 12/23/17 07:32 11:23 11:39 Temperature 98.1 F 97.8 F Pulse Rate 82 85 Respiratory 21 23 20 Rate Blood Pressure 125/71 134/72 (mmHg) O2 Sat by Pulse 100 100 100 Oximetry Oxygen Devices in Use Now: Nasal Cannula Appearance: Patient is a 52yo morbidly obese male who appears older than stated age and is sitting in the bed in [facility]. Eyes: No Scleral Icterus, PERRLA Ears/Nose/Mouth/Throat: NL Teeth, Lips, Gums, Clear Oropharnyx, Mucous Membranes Moist Neck: NL Appearance and Movements; NL JVP, Trachea Midline Respiratory: Symmetrical Chest Expansion and Respiratory Effort, Clear to Auscultation Cardiovascular: NL Sounds; No Murmurs; No JVD, RRR, - - 1+ edema in B/L LE. Stable from previous exam. Abdominal: NL Sounds; No Tenderness; No Distention, No Hepatosplenomegaly, - - No CVA tenderness. Lymphatic: No Cervical Adenopathy Extremities: No Edema, No Clubbing, Cyanosis Skin: No Nodules or Sclerosis, - - Scrapes on buttocks and in gluteal cleft which are healing well. LLE covered in wound vac without erythema on visible leg. Neurological: Alert and Oriented x 3, NL Muscle Strength and Tone, - - CN II- XII intact. Result Diagrams: 12/23/17 06:55 12/23/17 06:55 Additional Lab and Data: Laboratory Results - last 24 hr Microbiology and Other Data: Microbiology 12/15/17 13:35 Blood Venous Aerobic Blood Culture - Final No Growth Day 5 12/15/17 13:35 Blood Venous Anaerobic Blood Culture - Final No Growth Day 5 12/15/17 13:28 Blood Venous Aerobic Blood Culture - Final No Growth Day 5 12/15/17 13:28 Blood Venous Anaerobic Blood Culture - Final No Growth Day 5 12/15/17 13:28 Foot Left Skin and Soft Tissue MRSA/MSSA (PCR - Final Mrsa Positive S.aureus Positive 12/15/17 13:28 Foot Left Gram Stain - Final 12/15/17 13:28 Foot Left Wound Culture - Final MRSA Morganella Morganii Klebsiella Oxytoca 12/16/17 18:24 Urine Urine Culture - Final No Growth (<1,000 CFU/mL) Assess/Plan/Problems-Billing . Assessment: 52 yo man with MRSA-infected lower extremity ulceration as well as increased edema and uncontrolled hypertension. Diastolic Dysfunction with massive volume overload/anasarca. S/P I&D 12/20/[address] Hernandez with mild post-operative bleeding and wound vac placement. - Patient Problems (1) Infection of wound due to methicillin resistant Staphylococcus aureus (MRSA) Current Visit: Yes Status: Acute Priority: High Code(s): A49.02 - METHICILLIN RESIS STAPH INFECTION, UNSP SITE SNOMED Code(s): 307384913 Comment: Bilateral lower extremity wounds. Left leg amputated with wound vac. Status post debridement. Vancomycin stopped. Transition to Doxycycline BID. Surgery (and ortho) consults are appreciated. CT scan with no clear bone involvment. S/P I&D with pathology pending No signs of sepsis. Continue wound vac. (2) Acute and chronic respiratory failure with hypoxia Current Visit: Yes Status: Acute Code(s): J96.21 - ACUTE AND CHRONIC RESPIRATORY FAILURE WITH HYPOXIA SNOMED Code(s): 77174806 Comment: On 2L O2. With hypercapnea which is improving. Likely 2/2 obesity hypoventilation, COPD, and acute CHF exacerbation Improving oxygenation. Resume advair to substitute for home advair. (3) Hematuria Current Visit: Yes Status: Acute Code(s): R31.9 - HEMATURIA, UNSPECIFIED SNOMED Code(s): 37795257 Comment: Hematuria for several days. H/H decreasing. Patient had darkened urine for 2 weeks before admission per his report. No teja blood or clots. Now has clots, making glomerular source less likely. Patient has protein in urine. US and CT of abdomen shows nothing but a renal cyst. Color of urine improving with fewer clots. Consider Inpatient urology consultation for cystoscopy if hematuria and H/H decline continue. Had hematuria on admission and on previous admission in 2011 which was in the setting of severe EFRAIN. (4) Diabetes mellitus Current Visit: Yes Status: Acute Code(s): E11.9 - TYPE 2 DIABETES MELLITUS WITHOUT COMPLICATIONS SNOMED Code(s): 65896646 Comment: A1C 7.9% Transition to SSI and FS ACHS after contrast enhanced study of the kidneys. (5) Bilateral lower extremity edema Current Visit: Yes Status: Acute Priority: High Code(s): R60.0 - LOCALIZED EDEMA SNOMED Code(s): 656983760 Comment: Decrease back down to Lasix 10 mg IV once a day as exceeding volume targets. Goal net negative 2-2.5L daily. stopped HCTZ. Low salt diet; Nutrition consult Strict I/O Not compliant with daily weights. Related to Diastolic dysfunction and fluid overload. Patient is over 20L negative this admission. (6) HLD (hyperlipidemia) Current Visit: Yes Status: Acute Code(s): E78.5 - HYPERLIPIDEMIA, UNSPECIFIED SNOMED Code(s): 18506688 Comment: Continue atorvastatin. (7) Hypertension Current Visit: Yes Status: Acute Priority: High Code(s): I10 - ESSENTIAL ( PRIMARY) HYPERTENSION SNOMED Code(s): 58146078 Comment: Losartan 100mg, Amlodipine 10mg, IV lasix Normotensive (8) Hypercapnia with mixed acid-base disorder Current Visit: Yes Status: Acute Code(s): E87.4 - MIXED DISORDER OF ACID- BASE BALANCE SNOMED Code(s): 83358353 Comment: Critically elevated Carbon dioxide. . VBG shows elevated CO2 and Bicarbonate likely due to contraction alkalosis and [place]/OHS. Decrease lasix. Start Acetazolamide and monitor VBG. Patient refuses CPAP therapy. Patient alert and not symptomatically hypercarbic. (9) Morbid obesity with BMI of 70 and over, adult Current Visit: Yes Status: Acute Priority: High Code(s): E66.01 - MORBID ( SEVERE) OBESITY DUE TO EXCESS CALORIES; Z68.45 - BODY MASS INDEX (BMI) 70 OR GREATER, ADULT SNOMED Code(s): 355976018 Comment: Nutrition consult SW consult Patient refuses weight monitoring. (10) Hemorrhage Current Visit: Yes Status: Acute Comment: Post operative hemorrhage. Controlled. Minor drop in H/H, continue to monitor. (11) Yeast infection of the skin Current Visit: Yes Status: Acute Code(s): B37.2 - CANDIDIASIS OF SKIN AND NAIL SNOMED Code(s): 14376129 Comment: Not severe, continue nystatin and non-pharmacologic therapies. (12) DVT prophylaxis Current Visit: Yes Status: Acute Code(s): PJL4437 - SNOMED Code(s): 798813660 Comment: Heparin SubQ Status and Disposition: Inpatient. Will likely need KEITH at discharge.
[2017-12-23] MEDS: Mometasone/Formoter 200/5 MDI INH SCH (19:57)
[2017-12-24] MEDS: oxyCODONE TAB* 5 MG TAB PO PRN (03:08)
[2017-12-24 07:34] LABS: ABS Basophils 0.1 10^3/ul (0-0.2); ABS Eosinophils 0.3 10^3/ul (0-0.6); ABS Lymphocytes 0.8 10^3/ul (1.0-4.8); ABS Monocytes 0.6 10^3/ul (0-0.8); ABS Neutrophils 3.6 10^3/ul (1.5-7.7); ABS Nucleated RBC 0 10^3/ul; Eosinophil % 5.3 % (0-6); Hematocrit 37 % (42-52); Hemoglobin 11.6 g/dl (14.0-18.0); Lymphocyte % 15.4 % (25-47); Mean Corpuscular HGB Conc 32 g/dl (31-36); Mean Corpuscular Hemoglobin 29 pg (27-31); Mean Corpuscular Volume 91 fL (80-94); Mean Platelet Volume 7.8 um3 (7.4-10.4); Nucleated Red Blood Cells % 0.1; Platelet Count 169 10^3/ul (150-450); Red Blood Count 4.04 10^6/ul (4.00-5.40); Red Cell Distribution Width 17 % (10.5-15); White Blood Count 5.4 10^3/ul (3.5-10.8)
[2017-12-24 07:44] LABS: EGFR Non-African American 108.9 (>60)
[2017-12-24] MEDS: Mometasone/Formoter 200/5 MDI INH SCH ×2 (08:05→20:23)
[2017-12-24] MEDS: Insulin LISPRO* 1 UNITS UNIT SUBCUT SCH ×4 (08:16→20:35)
[2017-12-24] MEDS: Losartan TAB* 25 MG PO SCH (08:57)
[2017-12-24] MEDS: Furosemide IV* 10 MG/ML 2 ML VIAL (20 MG) IV SCH (08:58)
[2017-12-24] MEDS: amLODIPine TAB* 5 MG PO SCH (08:58)
[2017-12-24] MEDS: Atorvastatin* 20 MG TAB PO SCH (08:58)
[2017-12-24] MEDS: DOXYcycline CAP(*) 100 MG PO SCH ×2 (08:58→20:10)
[2017-12-24] MEDS: acetaZOLAMIDE TAB* 250 MG PO SCH ×2 (08:58→20:10)
[2017-12-24] MEDS: Nystatin TOP POWDER* 15 GM BTL TOPICAL SCH ×3 (09:03→20:40)
--- NOTE | 2017-12-24 12:51 | PN ---
Subjective Date of Service: 12/24/17 Interval History: Patient seen and examined at bedside. Denies fever, chills, shortness of breath , chest discomfort, N/V/D. Per NSG staff the urine color continues to improve. Family History: Unchanged from Admission Social History: Unchanged from Admission Past Medical History: Unchanged from Admission Objective Active Medications: Acetaminophen (Tylenol Tab*) 650 mg PO Q4H PRN Reason: FEVER/PAIN Acetazolamide (Diamox Tab*) 250 mg PO BID INGRID Stop: 12/25/17 21:01 Albuterol/Ipratropium (Duoneb (Albuterol 2.5 Mg/Ipratropium 0.5 Mg)) 1 neb INH Q4H PRN Reason: SOB/WHEEZING Amlodipine Besylate (Norvasc Tab*) 10 mg PO DAILY INGRID Atorvastatin Calcium (Lipitor*) 20 mg PO DAILY [facility] Dextrose (D50w Syringe 50 Ml*) 12.5 gm IV PUSH .FOR FS < 60 - SS PRN Reason: FS < 60 Doxycycline Hyclate (Vibramycin Cap(*)) 100 mg PO BID INGRID Furosemide (Lasix Iv*) 10 mg IV 0800 [facility] Insulin Human Lispro (Humalog*) 0 units SUBCUT ACHS INGRID; Protocol Losartan Potassium (Cozaar Tab*) 100 mg PO DAILY [facility] Mometasone Furoate/Formoterol Fumar (Dulera 200/5 Mdi*) 2 puff INH BID INGRID Nystatin (Nystatin Top Powder*) 1 applic TOPICAL TID INGRID Ondansetron HCl (Zofran Inj*) 4 mg IV Q4H PRN Reason: NAUSEA/VOMITING Oxycodone HCl (Roxycodone Tab*) 5 mg PO TID PRN Reason: PAIN Vital Signs - 8 hr 12/24/17 12/24/17 12/24/17 07:18 07:37 08:06 Temperature 98.2 F Pulse Rate 76 81 Respiratory 16 21 16 Rate Blood Pressure 121/65 (mmHg) O2 Sat by Pulse 100 97 Oximetry 12/24/17 12/24/17 09:43 11:36 Temperature 97.5 F Pulse Rate 67 Respiratory 20 19 Rate Blood Pressure 115/68 (mmHg) O2 Sat by Pulse 98 100 Oximetry Oxygen Devices in Use Now: None Appearance: NAD, laying in bed on his stomach Ears/Nose/Mouth/Throat: Mucous Membranes Moist Respiratory: Symmetrical Chest Expansion and Respiratory Effort, Clear to Auscultation Cardiovascular: NL Sounds; No Murmurs; No JVD, RRR Abdominal: NL Sounds; No Tenderness; No Distention Neurological: Alert and Oriented x 3, NL Muscle Strength and Tone Lines/Tubes/Other Access: Clean, Dry and Intact Painting - patent, clear yellow urine, Clean, Dry and Intact Peripheral IV - site benign Nutrition: Taking PO's Result Diagrams: 12/24/17 07:21 12/24/17 07:21 Microbiology and Other Data: Microbiology 12/15/17 13:35 Blood Venous Aerobic Blood Culture - Final No Growth Day 5 12/15/17 13:35 Blood Venous Anaerobic Blood Culture - Final No Growth Day 5 12/15/17 13:28 Blood Venous Aerobic Blood Culture - Final No Growth Day 5 12/15/17 13:28 Blood Venous Anaerobic Blood Culture - Final No Growth Day 5 12/15/17 13:28 Foot Left Skin and Soft Tissue MRSA/MSSA (PCR - Final Mrsa Positive S.aureus Positive 12/15/17 13:28 Foot Left Gram Stain - Final 12/15/17 13:28 Foot Left Wound Culture - Final MRSA Morganella Morganii Klebsiella Oxytoca 12/16/17 18:24 Urine Urine Culture - Final No Growth (<1,000 CFU/mL) Assess/Plan/Problems-Billing . Assessment: Mr. Xavier is a 52 yo man with MRSA-infected lower extremity ulceration as well as increased edema and uncontrolled hypertension. Diastolic Dysfunction with massive volume overload/anasarca. S/P I&D 12/20/[address] Hernandez with mild post-operative bleeding and wound vac placement. - Patient Problems (1) Infection of wound due to methicillin resistant Staphylococcus aureus (MRSA) Code(s): A49.02 - METHICILLIN RESIS STAPH INFECTION, UNSP SITE SNOMED Code(s) : 710991609 Comment: - Bilateral lower extremity wounds - CT scan with no clear bone involvment - Surgery and Ortho consults, input appreciated - S/P Left leg amputated I+D with wound vac placement - Continue Doxycycline BID (2) Acute and chronic respiratory failure with hypoxia Code(s): J96.21 - ACUTE AND CHRONIC RESPIRATORY FAILURE WITH HYPOXIA SNOMED Code(s): 58606441 Comment: - Improving oxygenation - With hypercapnea, improving - Likely 2/2 obesity hypoventilation, COPD, and acute CHF exacerbation - Continue dulera (3) Hematuria Code(s): R31.9 - HEMATURIA, UNSPECIFIED SNOMED Code(s): 79041772 Comment: - Hematuria for several days, improving with fewer clots - Patient had darkened urine for 2 weeks before admission per his report. No teja blood or clots - H/H decreasing - Now has clots, making glomerular source less likely. Patient has protein in urine - US and CT of abdomen shows a renal cyst - Consider Inpatient vs outpatient urology consultation for cystoscopy if hematuria and H/H decline continue (4) Diabetes mellitus Code(s): E11.9 - TYPE 2 DIABETES MELLITUS WITHOUT COMPLICATIONS SNOMED Code(s) : 76238933 Comment: - Glucose 140-190's - HgA1C 7.9 - Continue SSI and FS ACHS, resume metformin 12/26 (5) Hemorrhage Comment: - Post operative hemorrhage, now controlled - Minor drop in H/H, continue to monitor (6) Hypercapnia with mixed acid-base disorder Code(s): E87.4 - MIXED DISORDER OF ACID-BASE BALANCE SNOMED Code(s): 21205934 Comment: - Carbon dioxide improving today - Patient refuses CPAP therapy. Patient alert and not symptomatically hypercarbic - 12/24 VBG shows elevated CO2 and Bicarbonate likely due to contraction alkalosis and [facility]/OHS - Continue Acetazolamide (7) Yeast infection of the skin Code(s): B37.2 - CANDIDIASIS OF SKIN AND NAIL SNOMED Code(s): 97083990 Comment: - Continue nystatin and non-pharmacologic therapies (8) Bilateral lower extremity edema Code(s): R60.0 - LOCALIZED EDEMA SNOMED Code(s): 256539953 Comment: - Suspect related to Diastolic dysfunction and fluid overload - Goal net negative 2-2.5L daily - Nutrition consult - Continue Low salt diet - Continue Lasix, Strict I/O - Not compliant with daily weights (9) Hypertension Code(s): I10 - ESSENTIAL (PRIMARY) HYPERTENSION SNOMED Code(s): 91226090 Comment: - SBP 100-130's - Continue Losartan, Amlodipine, and IV lasix (10) Morbid obesity with BMI of 70 and over, adult Code(s): E66.01 - MORBID (SEVERE) OBESITY DUE TO EXCESS CALORIES; Z68.45 - BODY MASS INDEX (BMI) 70 OR GREATER, ADULT SNOMED Code(s): 122578915 Comment: - Nutrition and SW consult - Patient refuses weight monitoring (11) HLD (hyperlipidemia) Code(s): E78.5 - HYPERLIPIDEMIA, UNSPECIFIED SNOMED Code(s): 94227681 Comment: - Continue atorvastatin (12) DVT prophylaxis Code(s): HJP2454 - SNOMED Code(s): 133275928 Comment: - Heparin SubQ (13) Full code status Code(s): Z78.9 - OTHER SPECIFIED HEALTH STATUS SNOMED Code(s): 034945535 Status and Disposition: Inpatient. Will likely need KEITH at discharge.
--- NOTE | 2017-12-24 13:48 | PN ---
Progress Note - Progress Note Date of Service: 12/24/17 SOAP: Subjective: []Patient seen at bedside. He feels well with no reported chills, cp, sob, dizziness, nausea or leg pain. Objective: [] General: Well appearing, NAD LLE: Dressing changed. Ulcer with active bleeding, no purulence. Granulation tissue in wound bed, no maceration of wound edges and no surrounding erythema. Vac change is painful. Calves supple, nontender without erythema. Assessment: []Left leg stump ulcer and infection S/P left leg stump I&D and placement of wound vac on 12/[address] Romero Plan: Appreciate hospitalist mgmt Due to continued blood in urine and active bleeding of wound patients heparin is held. Will likely restart tomorrow. Needs SCDs especially while not on chemical prophylaxis for clot Cont pain control Cont PT/OT, NWB LLE Cont abx per ID Ortho to change Wound vac on 12/27. Vital Signs Temp 97.5 F 12/24/17 11:36 Pulse 67 12/24/17 11:36 Resp 19 12/24/17 11:36 BP 115/68 12/24/17 11:36 Pulse Ox 100 12/24/17 11:36 Intake & Output 12/23/17 12/24/17 12/24/17 18:59 06:59 18:59 Intake Total 946 0 360 Output Total 5200 4700 Balance -4254 -4700 360 Weight 487 lb 0.018 oz 479 lb 1.6 oz Intake: IVPB 106 magnesium 106 Oral 840 0 360 Output: Urine 2000 Painting 3200 4700 Other: # Bowel Movements 0 Laboratory Last Values WBC 5.4 10^3/ul (3.5-10.8) 12/24/17 07:21 RBC 4.04 10^6/ul (4.00-5.40) 12/24/17 07:21 Hgb 11.6 g/dl (14.0-18.0) L 12/24/17 07:21 Hct 37 % (42-52) L 12/24/17 07:21 MCV 91 fL (80-94) 12/24/17 07:21 MCH 29 pg (27-31) 12/24/17 07:21 MCHC 32 g/dl (31-36) 12/24/17 07:21 RDW 17 % (10.5-15) H 12/24/17 07:21 Plt Count 169 10^3/ul (150-450) 12/24/17 07:21 MPV 7.8 um3 (7.4-10.4) 12/24/17 07:21 Neut % (Auto) 66.6 % (38-83) 12/24/17 07:21 Lymph % (Auto) 15.4 % (25-47) L 12/24/17 07:21 [place] % (Auto) 11.4 % (0-7) H 12/24/17 07:21 Eos % (Auto) 5.3 % (0-6) 12/24/17 07:21 Baso % (Auto) 1.3 % (0-2) 12/24/17 07:21 Absolute Neuts (auto) 3.6 10^3/ul (1.5-7.7) 12/24/17 07:21 Absolute Lymphs (auto) 0.8 10^3/ul (1.0-4.8) L 12/24/17 07:21 Absolute Monos (auto) 0.6 10^3/ul (0-0.8) 12/24/17 07:21 Absolute Eos (auto) 0.3 10^3/ul (0-0.6) 12/24/17 07:21 Absolute Basos (auto) 0.1 10^3/ul (0-0.2) 12/24/17 07:21 Absolute Nucleated RBC 0 10^3/ul 12/24/17 07: Nucleated RBC % 0.1 12/24/17 07: ESR 8 mm/Hr (0-20) 12/15/17 13:28 INR (Anticoag Therapy) 1.10 (0.77-1.02) H 12/20/17 06:15 APTT 32.5 seconds (26.0-36.3) 12/15/17 13:28 VBG pH 7.32 (7.33-7.43) L 12/24/17 07:21 VBG pCO2 85 mmHg (41-51) H 12/24/17 07:21 VBG pO2 56 mmHg (35-45) H 12/24/17 07:21 VBG HCO3 35.7 mmol/L (24-28) H 12/24/17 07:21 VBG O2 Saturation 88.4 % (70-80) H 12/24/17 07:21 VBG Base Excess 14.2 (0-4) H 12/24/17 07:21 Sodium 139 mmol/L (135-145) 12/24/17 07:21 Potassium 3.9 mmol/L (3.5-5.0) 12/24/17 07:21 Chloride 98 mmol/L (101-111) L 12/24/17 07:21 Carbon Dioxide 39 mmol/L (22-32) H 12/24/17 07:21 Anion Gap 2 mmol/L (2-11) 12/24/17 07:21 BUN 15 mg/dL (6-24) 12/24/17 07:21 Creatinine 0.75 mg/dL (0.67-1.17) 12/24/17 07:21 Est GFR ( Amer) 131.8 (>60) 12/24/17 07:21 Est GFR (Non-Af Amer) 108.9 (>60) 12/24/17 07:21 BUN/Creatinine Ratio 20.0 (8-20) 12/24/17 07:21 Glucose 158 mg/dL (70-100) H 12/24/17 07:21 POC Glucose (mg/dL) 193 mg/dL (70-100) H 12/24/17 12:06 Hemoglobin A1c 7.9 % (4.0-5.6) H 12/15/17 13:28 Lactic Acid 1.5 mmol/L (0.5-2.0) 12/15/17 18:49 Calcium 8.4 mg/dL (8.6-10.3) L 12/24/17 07:21 Magnesium 1.5 mg/dL (1.9-2.7) L 12/24/17 07:21 Total Bilirubin 1.00 mg/dL (0.2-1.0) 12/18/17 07:01 AST 11 U/L (13-39) L 12/18/17 07:01 ALT 11 U/L (7-52) 12/18/17 07:01 Alkaline Phosphatase 121 U/L (34-104) H 12/18/17 07:01 Troponin I 0.04 ng/mL (<0.04) H* 12/16/17 19:28 C-Reactive Protein 11.68 mg/L (<8.01) H 12/15/17 13:28 B-Natriuretic Peptide 918 pg/mL (-100) H 12/15/17 13:28 Total Protein 5.8 g/dL (6.4-8.9) L 12/18/17 07:01 Albumin 3.0 g/dL (3.2-5.2) L 12/18/17 07:01 Globulin 2.8 g/dL (2-4) 12/18/17 07:01 Albumin/Globulin Ratio 1.1 (1-3) 12/18/17 07:01 Urine Color Daija 12/16/17 18:24 Urine Appearance Cloudy 12/16/17 18:24 Urine pH 5.0 (5-9) 12/16/17 18:24 Ur Specific [place] 1.023 (1.010-1.030) 12/16/17 18:24 Urine Protein 2+(100 mg/dl) (Negative) A 12/16/17 18:24 Urine Ketones Negative (Negative) 12/16/17 18:24 Urine Blood 3+ (Negative) A 12/16/17 18:24 Urine Nitrate Negative (Negative) 12/16/17 18:24 Urine Bilirubin Negative (Negative) 12/16/17 18:24 Urine Urobilinogen Positive (Negative) A 12/16/17 18:24 Ur Leukocyte Esterase Negative (Negative) 12/16/17 18:24 Urine WBC (Auto) Trace(0-5/hpf) (Absent) 12/16/17 18:24 Urine RBC (Auto) 3+(>10/hpf) (Absent) A 12/16/17 18:24 Urine Bacteria 1+ (Absent) A 12/16/17 18:24 Urine Yeast Present (Absent) A 12/16/17 18:24 Urine Glucose Negative (Negative) 12/16/17 18:24 Vancomycin Trough 16.8 mcg/mL 12/22/17 10:58 Blood Type AB Positive 12/20/17 22:52 Antibody Screen Negative 12/20/17 22:52
[2017-12-24] MEDS ORDERED: Magnesium Sulf 4 GM/100 ML IV* 4,000 MG/100 ML BAG IVPB ONE (17:44)
[2017-12-25 08:35] LABS: Hematocrit 36 % (42-52); Hemoglobin 11.3 g/dl (14.0-18.0)
[2017-12-25] MEDS: Mometasone/Formoter 200/5 MDI INH SCH ×2 (08:56→21:15)
[2017-12-25] MEDS: DOXYcycline CAP(*) 100 MG PO SCH ×2 (08:56→21:16)
[2017-12-25] MEDS: acetaZOLAMIDE TAB* 250 MG PO SCH ×2 (08:56→21:16)
[2017-12-25] MEDS: Insulin LISPRO* 1 UNITS UNIT SUBCUT SCH ×4 (08:56→21:16)
[2017-12-25] MEDS: Furosemide IV* 10 MG/ML 2 ML VIAL (20 MG) IV SCH (08:56)
[2017-12-25] MEDS: amLODIPine TAB* 5 MG PO SCH (08:57)
[2017-12-25] MEDS: Atorvastatin* 20 MG TAB PO SCH (08:57)
[2017-12-25] MEDS: Losartan TAB* 25 MG PO SCH (08:57)
[2017-12-25] MEDS: Nystatin TOP POWDER* 15 GM BTL TOPICAL SCH ×3 (09:01→21:26)
[2017-12-25] MEDS ORDERED: Magnesium Sulfate 2 GM IV* 2 GM/50 ML BAG IVPB ONE (09:08)
--- NOTE | 2017-12-25 09:36 | PN ---
Subjective Date of Service: 12/25/17 Interval History: Patient seen and examined at bedside. Denies fever, chills, shortness of breath , chest discomfort, N/V/D. Jose states that he is unable to get OOB due to being unable to bear weight on his left LE. He is wondering how long he will be NWB on that leg. He states that at home he either ambulates with his prosthetic or on the stump. He doesn't want to go to rehab because he doesn't feel the care he receives will be good. O2 sat 84-86% on room air, Pt states that his PCP has tried to get him on home O2 in the past, but he is unable to afford it. Family History: Unchanged from Admission Social History: Unchanged from Admission Past Medical History: Unchanged from Admission Objective Active Medications: Acetaminophen (Tylenol Tab*) 650 mg PO Q4H PRN Reason: FEVER/PAIN Acetazolamide (Diamox Tab*) 250 mg PO BID INGRID Stop: 12/25/17 21:01 Albuterol/Ipratropium (Duoneb (Albuterol 2.5 Mg/Ipratropium 0.5 Mg)) 1 neb INH Q4H PRN Reason: SOB/WHEEZING Amlodipine Besylate (Norvasc Tab*) 10 mg PO DAILY INGRID Atorvastatin Calcium (Lipitor*) 20 mg PO DAILY INGRID Dextrose (D50w Syringe 50 Ml*) 12.5 gm IV PUSH .FOR FS < 60 - SS PRN Reason: FS < 60 Doxycycline Hyclate (Vibramycin Cap(*)) 100 mg PO BID INGRID Furosemide (Lasix Iv*) 10 mg IV 0800 INGRID Magnesium Sulfate (Magnesium Sulfate 2 Gm Iv*) 2 gm in 50 mls @ 50 mls/hr IVPB ONCE ONE Stop: 12/25/17 10:07 Insulin Human Lispro (Humalog*) 0 units SUBCUT ACHS INGRID; Protocol Losartan Potassium (Cozaar Tab*) 100 mg PO DAILY INGRID Metformin HCl (Glucophage*) 1,000 mg PO 0800,1700 INGRID Mometasone Furoate/Formoterol Fumar (Dulera 200/5 Mdi*) 2 puff INH BID INGRID Nystatin (Nystatin Top Powder*) 1 applic TOPICAL TID INGRID Ondansetron HCl (Zofran Inj*) 4 mg IV Q4H PRN Reason: NAUSEA/VOMITING Oxycodone HCl (Roxycodone Tab*) 5 mg PO TID PRN Reason: PAIN Vital Signs - 8 hr 12/25/17 12/25/17 12/25/17 04:54 07:48 08:59 Temperature 98.5 F 98.5 F Pulse Rate 81 85 84 Respiratory 19 16 16 Rate Blood Pressure 120/58 115/67 (mmHg) O2 Sat by Pulse 100 100 94 Oximetry Oxygen Devices in Use Now: None Appearance: NAD, sitting up in bed Ears/Nose/Mouth/Throat: Mucous Membranes Moist Respiratory: Symmetrical Chest Expansion and Respiratory Effort, Clear to Auscultation - , diminised Cardiovascular: NL Sounds; No Murmurs; No JVD, RRR Abdominal: NL Sounds; No Tenderness; No Distention Skin: - - Dressing to left stump intact. Pt also with open areas on right LE Neurological: Alert and Oriented x 3, NL Muscle Strength and Tone Lines/Tubes/Other Access: Clean, Dry and Intact Peripheral IV - site benign Nutrition: Taking PO's Result Diagrams: 12/25/17 08:01 12/24/17 07:21 Microbiology and Other Data: Microbiology 12/15/17 13:35 Blood Venous Aerobic Blood Culture - Final No Growth Day 5 12/15/17 13:35 Blood Venous Anaerobic Blood Culture - Final No Growth Day 5 12/15/17 13:28 Blood Venous Aerobic Blood Culture - Final No Growth Day 5 12/15/17 13:28 Blood Venous Anaerobic Blood Culture - Final No Growth Day 5 12/15/17 13:28 Foot Left Skin and Soft Tissue MRSA/MSSA (PCR - Final Mrsa Positive S.aureus Positive 12/15/17 13:28 Foot Left Gram Stain - Final 12/15/17 13:28 Foot Left Wound Culture - Final MRSA Morganella Morganii Klebsiella Oxytoca 12/16/17 18:24 Urine Urine Culture - Final No Growth (<1,000 CFU/mL) Assess/Plan/Problems-Billing . Assessment: Mr. Xavier is a 52 yo man with MRSA-infected lower extremity ulceration as well as increased edema and uncontrolled hypertension. Diastolic Dysfunction with massive volume overload/anasarca. S/P I&D 12/20/[address] Hernandez with mild post-operative bleeding and wound vac placement. - Patient Problems (1) Infection of wound due to methicillin resistant Staphylococcus aureus (MRSA) Code(s): A49.02 - METHICILLIN RESIS STAPH INFECTION, UNSP SITE SNOMED Code(s) : 063404763 Comment: - Bilateral lower extremity wounds - CT scan with no clear bone involvment - Surgery and Ortho consults, input appreciated - S/P Left leg amputated I+D with wound vac placement - Continue Doxycycline BID (day 4/7) (2) Acute and chronic respiratory failure with hypoxia Code(s): J96.21 - ACUTE AND CHRONIC RESPIRATORY FAILURE WITH HYPOXIA SNOMED Code(s): 25791413 Comment: - Improving oxygenation - With hypercapnea, improving - Likely 2/2 obesity hypoventilation, COPD, and acute CHF exacerbation - Continue dulera (3) Hematuria Code(s): R31.9 - HEMATURIA, UNSPECIFIED SNOMED Code(s): 96587198 Comment: - Hematuria for several days, improving with fewer clots - Patient had darkened urine for 2 weeks before admission per his report. No teja blood or clots - H/H decreasing slightly each day - Now has clots, making glomerular source less likely. Patient has protein in urine - US and CT of abdomen shows a renal cyst - Consider Inpatient vs outpatient urology consultation for cystoscopy if hematuria and H/H decline continue (4) Diabetes mellitus Code(s): E11.9 - TYPE 2 DIABETES MELLITUS WITHOUT COMPLICATIONS SNOMED Code(s) : 99114108 Comment: - Glucose 140-160's - HgA1C 7.9 - Continue SSI and FS ACHS, resume metformin 12/26 (5) Hemorrhage Comment: - Post operative hemorrhage, now controlled - Minor drop in H/H, continue to monitor (6) Hypercapnia with mixed acid-base disorder Code(s): E87.4 - MIXED DISORDER OF ACID-BASE BALANCE SNOMED Code(s): 39806381 Comment: - Carbon dioxide improving today - Patient refuses CPAP therapy. Patient alert and not symptomatically hypercarbic - 12/24 VBG shows elevated CO2 and Bicarbonate likely due to contraction alkalosis and [facility]/OHS - Continue Acetazolamide (7) Yeast infection of the skin Code(s): B37.2 - CANDIDIASIS OF SKIN AND NAIL SNOMED Code(s): 88520161 Comment: - Continue nystatin and non-pharmacologic therapies (8) Bilateral lower extremity edema Code(s): R60.0 - LOCALIZED EDEMA SNOMED Code(s): 817891246 Comment: - Suspect related to Diastolic dysfunction and fluid overload - Goal net negative 2-2.5L daily - Nutrition consult - Continue Low salt diet - Continue Lasix, Strict I/O - Not compliant with daily weights (9) Hypertension Code(s): I10 - ESSENTIAL (PRIMARY) HYPERTENSION SNOMED Code(s): 81209116 Comment: - SBP 110-130's - Continue Losartan, Amlodipine, and IV lasix (10) Morbid obesity with BMI of 70 and over, adult Code(s): E66.01 - MORBID (SEVERE) OBESITY DUE TO EXCESS CALORIES; Z68.45 - BODY MASS INDEX (BMI) 70 OR GREATER, ADULT SNOMED Code(s): 444200571 Comment: - Nutrition and SW consult - Patient refuses weight monitoring (11) HLD (hyperlipidemia) Code(s): E78.5 - HYPERLIPIDEMIA, UNSPECIFIED SNOMED Code(s): 99294806 Comment: - Continue atorvastatin (12) DVT prophylaxis Code(s): NCU1590 - SNOMED Code(s): 156023646 Comment: - No chemical DVT prophylaxis in setting of hematuria and surgical site bleeding - SCDs (13) Full code status Code(s): Z78.9 - OTHER SPECIFIED HEALTH STATUS SNOMED Code(s): 932410011 Status and Disposition: Inpatient. Discharge when ok with orthopedics. Will likely need KEITH at discharge.
--- NOTE | 2017-12-25 15:15 | PN ---
Progress Note - Progress Note Date of Service: 12/25/17 SOAP: Subjective: []Patient seen and examined today. He denies LLE pain, fever or chills. Objective: []General: Well appearing, NAD LLE: Wound vac suctioning well, erwin wrap over vac CDI without bleeding Calves supple, nontender without erythema. Assessment: []Left leg stump ulcer and infection S/P left leg stump I&D and placement of wound vac on 12/[address] Romero Plan: Appreciate hospitalist mgmt Cont pain control Cont PT/OT, NWB LLE Cont abx per ID If still in house Ortho to change Wound vac on 12/27, otherwise needs to be changed at rehab facility and follow up in our office in 1 week Vital Signs Temp 98.3 F 12/25/17 11:26 Pulse 84 12/25/17 11:26 Resp 18 12/25/17 11:26 BP 105/52 12/25/17 11:26 Pulse Ox 91 12/25/17 11:26 Intake & Output 12/24/17 12/25/17 12/25/17 18:59 06:59 18:59 Intake Total 1080 130 650 Output Total 1625 3650 1930 Balance -545 -3520 -1280 Weight 470 lb 14.4 oz Intake: IV Fluids 130 NS & other fluids 30 magnesium 100 IVPB 50 magnesium 50 Oral 1080 0 600 Output: Painting 1625 3650 1930 Other: # Bowel Movements 0 Laboratory Last Values WBC 5.4 10^3/ul (3.5-10.8) 12/24/17 07:21 RBC 4.04 10^6/ul (4.00-5.40) 12/24/17 07:21 Hgb 11.3 g/dl (14.0-18.0) L 12/25/17 08:01 Hct 36 % (42-52) L 12/25/17 08:01 MCV 91 fL (80-94) 12/24/17 07:21 MCH 29 pg (27-31) 12/24/17 07:21 MCHC 32 g/dl (31-36) 12/24/17 07:21 RDW 17 % (10.5-15) H 12/24/17 07:21 Plt Count 169 10^3/ul (150-450) 12/24/17 07:21 MPV 7.8 um3 (7.4-10.4) 12/24/17 07:21 Neut % (Auto) 66.6 % (38-83) 12/24/17 07:21 Lymph % (Auto) 15.4 % (25-47) L 12/24/17 07:21 [place] % (Auto) 11.4 % (0-7) H 12/24/17 07:21 Eos % (Auto) 5.3 % (0-6) 12/24/17 07:21 Baso % (Auto) 1.3 % (0-2) 12/24/17 07:21 Absolute Neuts (auto) 3.6 10^3/ul (1.5-7.7) 12/24/17 07:21 Absolute Lymphs (auto) 0.8 10^3/ul (1.0-4.8) L 12/24/17 07:21 Absolute Monos (auto) 0.6 10^3/ul (0-0.8) 12/24/17 07:21 Absolute Eos (auto) 0.3 10^3/ul (0-0.6) 12/24/17 07:21 Absolute Basos (auto) 0.1 10^3/ul (0-0.2) 12/24/17 07:21 Absolute Nucleated RBC 0 10^3/ul 12/24/17 07:21 Nucleated RBC % 0.1 12/24/17 07:21 ESR 8 mm/Hr (0-20) 12/15/17 13:28 INR (Anticoag Therapy) 1.10 (0.77-1.02) H 12/20/17 06:15 APTT 32.5 seconds (26.0-36.3) 12/15/17 13:28 VBG pH 7.32 (7.33-7.43) L 12/24/17 07:21 VBG pCO2 85 mmHg (41-51) H 12/24/17 07:21 VBG pO2 56 mmHg (35-45) H 12/24/17 07:21 VBG HCO3 35.7 mmol/L (24-28) H 12/24/17 07:21 VBG O2 Saturation 88.4 % (70-80) H 12/24/17 07:21 VBG Base Excess 14.2 (0-4) H 12/24/17 07:21 Sodium 139 mmol/L (135-145) 12/24/17 07:21 Potassium 3.9 mmol/L (3.5-5.0) 12/24/17 07:21 Chloride 98 mmol/L (101-111) L 12/24/17 07:21 Carbon Dioxide 39 mmol/L (22-32) H 12/24/17 07:21 Anion Gap 2 mmol/L (2-11) 12/24/17 07:21 BUN 15 mg/dL (6-24) 12/24/17 07:21 Creatinine 0.75 mg/dL (0.67-1.17) 12/24/17 07:21 Est GFR ( Amer) 131.8 (>60) 12/24/17 07:21 Est GFR (Non-Af Amer) 108.9 (>60) 12/24/17 07:21 BUN/Creatinine Ratio 20.0 (8-20) 12/24/17 07:21 Glucose 158 mg/dL (70-100) H 12/24/17 07:21 POC Glucose (mg/dL) 169 mg/dL (70-100) H 12/25/17 12:08 Hemoglobin A1c 7.9 % (4.0-5.6) H 12/15/17 13:28 Lactic Acid 1.5 mmol/L (0.5-2.0) 12/15/17 18:49 Calcium 8.4 mg/dL (8.6-10.3) L 12/24/17 07:21 Magnesium 1.8 mg/dL (1.9-2.7) L 12/25/17 08:01 Total Bilirubin 1.00 mg/dL (0.2-1.0) 12/18/17 07:01 AST 11 U/L (13-39) L 12/18/17 07:01 ALT 11 U/L (7-52) 12/18/17 07:01 Alkaline Phosphatase 121 U/L (34-104) H 12/18/17 07:01 Troponin I 0.04 ng/mL (<0.04) H* 12/16/17 19:28 C-Reactive Protein 11.68 mg/L (<8.01) H 12/15/17 13:28 B-Natriuretic Peptide 918 pg/mL (-100) H 12/15/17 13:28 Total Protein 5.8 g/dL (6.4-8.9) L 12/18/17 07:01 Albumin 3.0 g/dL (3.2-5.2) L 12/18/17 07:01 Globulin 2.8 g/dL (2-4) 12/18/17 07:01 Albumin/Globulin Ratio 1.1 (1-3) 12/18/17 07:01 Urine Color Daija 12/16/17 18:24 Urine Appearance Cloudy 12/16/17 18:24 Urine pH 5.0 (5-9) 12/16/17 18:24 Ur Specific [place] 1.023 (1.010-1.030) 12/16/17 18:24 Urine Protein 2+(100 mg/dl) (Negative) A 12/16/17 18:24 Urine Ketones Negative (Negative) 12/16/17 18:24 Urine Blood 3+ (Negative) A 12/16/17 18:24 Urine Nitrate Negative (Negative) 12/16/17 18:24 Urine Bilirubin Negative (Negative) 12/16/17 18:24 Urine Urobilinogen Positive (Negative) A 12/16/17 18:24 Ur Leukocyte Esterase Negative (Negative) 12/16/17 18:24 Urine WBC (Auto) Trace(0-5/hpf) (Absent) 12/16/17 18:24 Urine RBC (Auto) 3+(>10/hpf) (Absent) A 12/16/17 18:24 Urine Bacteria 1+ (Absent) A 12/16/17 18:24 Urine Yeast Present (Absent) A 12/16/17 18:24 Urine Glucose Negative (Negative) 12/16/17 18:24 Vancomycin Trough 16.8 mcg/mL 12/22/17 10:58 Blood Type AB Positive 12/20/17 22:52 Antibody Screen Negative 12/20/17 22:52
[2017-12-26 06:54] LABS: ABS Basophils 0.1 10^3/ul (0-0.2); ABS Eosinophils 0.2 10^3/ul (0-0.6); ABS Monocytes 0.8 10^3/ul (0-0.8); ABS Neutrophils 5.2 10^3/ul (1.5-7.7); ABS Nucleated RBC 0 10^3/ul; Eosinophil % 3.3 % (0-6); Hematocrit 35 % (42-52); Hemoglobin 11.7 g/dl (14.0-18.0); Lymphocyte % 13.4 % (25-47); Mean Corpuscular HGB Conc 33 g/dl (31-36); Mean Corpuscular Hemoglobin 30 pg (27-31); Mean Corpuscular Volume 89 fL (80-94); Nucleated Red Blood Cells % 0; Platelet Count 218 10^3/ul (150-450); Red Blood Count 3.96 10^6/ul (4.00-5.40); Red Cell Distribution Width 16 % (10.5-15); White Blood Count 7.3 10^3/ul (3.5-10.8)
[2017-12-26 06:59] LABS: EGFR Non-African American 96.9 (>60)
[2017-12-26] MEDS: Mometasone/Formoter 200/5 MDI INH SCH (08:14)
[2017-12-26] MEDS: Losartan TAB* 25 MG PO SCH (09:16)
[2017-12-26] MEDS: DOXYcycline CAP(*) 100 MG PO SCH (09:16)
[2017-12-26] MEDS: Furosemide IV* 10 MG/ML 2 ML VIAL (20 MG) IV SCH (09:16)
[2017-12-26] MEDS: Atorvastatin* 20 MG TAB PO SCH (09:16)
[2017-12-26] MEDS: amLODIPine TAB* 5 MG PO SCH (09:16)
[2017-12-26] MEDS: Insulin LISPRO* 1 UNITS UNIT SUBCUT SCH ×2 (09:16→12:51)
[2017-12-26] MEDS: Nystatin TOP POWDER* 15 GM BTL TOPICAL SCH ×2 (09:17→16:03)
[2017-12-26] MEDS ORDERED: Lidocain 1% EPI 1:100,000 * 30 ML MDV INJ ONE (13:47)
[2017-12-26 14:07] VITALS: BP 128/63
--- NOTE | 2017-12-26 14:33 | DS ---
DISCHARGE SUMMARY: DATE OF ADMISSION: 12/17/17 DATE OF DISCHARGE: 12/26/17 ATTENDING PHYSICIAN: Tasha Osman MD* (dictated by Carmen Shepard NP). PRIMARY CARE PROVIDER: Dr. Kyle Rico. ORTHOPEDIC PROVIDER: Dr. Quintero. PRIMARY DIAGNOSIS: Left lower extremity stump infection with MRSA. SECONDARY DIAGNOSES: 1. Morbid obesity. 2. Hypertension. 3. Noninsulin-dependent diabetes. 4. Hyperlipidemia. 5. Chronic obstructive pulmonary disease. 6. Sleep apnea, noncompliant with CPAP. STUDIES COMPLETED WHILE IN THE HOSPITAL: He had a CT of the lower extremity on 12/18/17. Radiologist's impression was bony erosion is noted, although evaluation of the distal stump is limited by motion. There is soft tissue swelling at the stump, underlying fluid collection is not excluded. Extensive subcutaneous emphysema is present. He had an ultrasound of the abdomen and bladder on 12/22/17. Study was limited. The left kidney is obscured by overlying bowel gas and the bladder appears to be empty with the Painting catheter present. Right kidney appears to be within normal limits. If the patient's symptoms persist, consider further imaging. He had a CT of the abdomen and pelvis on 12/23/17. Radiologist's impression: 1. Severely limited study. 2. Small hypodense left renal lesion likely representing a simple or complex cyst, recommended followup renal ultrasound further evaluation. 3. Diffuse thickening of the wall of the bladder, likely due to incomplete distention. Recommend urological consultation for the patient's hematuria. Mildly prominent retroperitoneal lymph nodes, mild hepatosplenomegaly. DISCHARGE MEDICATIONS: 1. Acetaminophen 650 mg p.o. q.4 hours as needed for pain. 2. Amlodipine 10 mg p.o. daily. 3. Atorvastatin 20 mg p.o. daily. 4. Doxycycline 100 mg p.o. b.i.d. x3 days. 5. Furosemide 10 mg p.o. daily. 6. Losartan 100 mg p.o. daily. 7. Metformin 1000 mg p.o. b.i.d. 8. Dulera 200/5 two puffs b.i.d. 9. Nystatin apply t.i.d. to affected areas. 10. Oxycodone 5 mg p.o. q.8 hours as needed for pain. Continued home meds: 1. Atorvastatin 20 mg p.o. daily. 2. Metformin 1000 mg p.o. b.i.d. 3. Oxycodone 5 mg p.o. q.8 hours. HISTORY OF PRESENT ILLNESS AND HOSPITAL COURSE: Mr. Xavier is an unfortunate 52 - year-old gentleman with multiple medical problems and complaints. He comes to the hospital because of inability to care for himself and because he is "a mess." The patient is chiefly complaining of his right lower extremity wounds that appeared to be superficial and looking to have an amputation. He also reports that he is unable to get medical clearance due to his sleep apnea and pulmonary conditions. 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 The patient did point out that he had some bruising and swelling noted to the left stump. The patient was seen in the emergency room and stated unable to care for himself and is being referred for admission due to cellulitis surrounding the left lower extremity wound and increased lower extremity edema. While in the hospital, he did have debridement by Orthopedics of the left lower leg stump wound. He has since been placed on a wound VAC and treated with antibiotics, vancomycin and converted to doxycycline, which he currently has 3 days left of doxycycline to complete his antibiotic course of treatment for his MRSA infection to his left lower extremity. He has been afebrile throughout his hospitalization. During the hospitalization, his blood pressure medications were changed. His lisinopril was discontinued and he was started on losartan and amlodipine was increased to 10 mg. He did receive a small dose of Lasix during his hospitalization for diuresis. At this time, Mr. Xavier is stable for discharge to [facility] for rehab and physical therapy. Mr. Xavier is stable for discharge to [facility] today. Vital signs are as follows: Blood pressure 133/60, temperature was 98.6, heart rate was 85, respirations were 20, O2 saturation was 92% on room air. DISCHARGE PLAN: Mr. Xavier will be discharged to [facility] today. He has a wound VAC in place, which will need a dressing change on 12/27/17 and 12/31/17. He will have the wound VAC dressing changed on 01/03/18 in the orthopedic office for a wound check. He is nonweightbearing to the left lower extremity. 1. Left lower extremity MRSA infection: The wound VAC should be stay in place. He needs a wound VAC dressing change on 12/27/17 and 12/31/17 at [facility]. He is to follow up with Orthopedics on 01/03/18 for wound VAC change and wound check. He is nonweightbearing to the left lower extremity. He needs to call the orthopedic office for an appointment on 01/03/18. He should continue on doxycycline 100 mg p.o. b.i.d. for 3 more days to complete a 7-day course of doxycycline. 2. Hypertension: He should continue on amlodipine 10 mg p.o. daily, losartan 100 mg p.o. daily, and Lasix 20 mg p.o. daily. 3. Acute on chronic respiratory failure: This has been improving with diuresis. Suspect this is related to COPD and acute CHF exacerbation. He should continue on Dulera and continue Lasix 20 mg p.o. daily. 4. Hematuria: He did have some hematuria during this hospitalization. He does report darkened urine for 2 weeks prior to his admission. His H and H increased today on the day of discharge. There was no clotting noted in his Painting catheter tubing. I would recommend Urology consultation for cystoscopy for hematuria if his H and H continue to decline or if he continues to have hematuria on an outpatient basis. 5. Diabetes: He should continue his metformin. 6. Yeast infection of the skin: Continue with nystatin. 7. Bilateral lower extremity edema: He should continue on a consistent carb diet that is low in sodium. Continue with Lasix. 8. Hypertension: Has been stable. He should continue on his losartan, amlodipine, and Lasix. 9. Hyperlipidemia: He should continue on his atorvastatin. 10. Morbid obesity: The patient at this point is refusing any weight monitoring. The patient should follow up with his primary care provider in 4 to 7 days for evaluation of continued hematuria. He should follow up with Orthopedics on . He needs to call the office for an appointment. The patient should return to the emergency room if he develops any fever, chills , signs of increased infection, chest pain or shortness of breath, or any other concerning symptoms. This is summarization of his hospitalization. For further details, please see the entire medical record. TIME SPENT: Time spent on this discharge was approximately 60 minutes, greater than half that time was spent with the patient discussing discharge plans and instructions. CONDITION ON DISCHARGE: Stable. I have discussed this with my attending, Dr. Tasha Osman, and she is in agreement with my plan. CARMEN SHEPARD NP [id number]/[facility] #: [id number] MELISSA
--- NOTE | 2017-12-26 16:53 | PN ---
Progress Note - Progress Note Date of Service: 12/26/17 SOAP: Subjective: [] Patient seen and examined at bedside. He feels well without left stump pain, fever or chills. He will be discharged per medicine today. Objective: [] General: NAD LLE: Wound vac suctioning well, erwin wrap over vac CDI without bleeding. Due to [place] request vac was removed and a wet to dry dressing was placed for transport. As patient found vac change quite painful and had associated bleeding in the past I inject 10 cc 1% lido with epi into the sponge before removal. This was tolerated very well by the patient and there was minimal bleeding. Skin around the ulcer was cleaned and no maceration present. Ulcer is 10x8x1 cm with granulation tissue throughout the wound bed. No erythema surrounding the wound. Assessment: []Left leg stump ulcer and infection S/P left leg stump I&D and placement of wound vac on 12/[address] Romero Plan: Appreciate hospitalist [facility], will be discharged today Cont pain control Cont PT/OT, NWB LLE Vac will be placed upon arrival to rehab. Vac changes every 3 days, should follow up in clinic within the next week or with any concerns
[2017-12-26] MEDS ORDERED: metFORMIN* 1,000 MG TAB PO SCH (17:00)
--- NOTE | 2017-12-26 22:05 | PN ---
Subjective Date of Service: 12/26/17 Interval History: Examined at the bedside. Patient lying in bed, denies fever or chills, denies any c/o chest pain or shortness of breath. Denies abd pain n/v/d. Medellin cath to gravity continues to have to hematuria. H/H stable. Continues to be frustrated about going to a [facility], but is agreeable to going. Family History: Unchanged from Admission Social History: Unchanged from Admission Past Medical History: Unchanged from Admission Objective Oxygen Devices in Use Now: None Appearance: appears comfortable resting in bed, no acute ditress Eyes: No Scleral Icterus Ears/Nose/Mouth/Throat: Mucous Membranes Moist Neck: NL Appearance and Movements; NL JVP, Trachea Midline Respiratory: Symmetrical Chest Expansion and Respiratory Effort, Clear to Auscultation Cardiovascular: NL Sounds; No Murmurs; No JVD, RRR Abdominal: NL Sounds; No Tenderness; No Distention, - - obese Extremities: No Clubbing, Cyanosis Skin: - - dressing dry and intact to left lower ext., wound vac with moderate amount of bloody drainage. Neurological: Alert and Oriented x 3 Nutrition: Taking PO's Result Diagrams: 12/26/17 06:32 12/26/17 06:32 Additional Lab and Data: Laboratory Results - last 24 hr Microbiology and Other Data: Microbiology 12/15/17 13:35 Blood Venous Aerobic Blood Culture - Final No Growth Day 5 12/15/17 13:35 Blood Venous Anaerobic Blood Culture - Final No Growth Day 5 12/15/17 13:28 Blood Venous Aerobic Blood Culture - Final No Growth Day 5 12/15/17 13:28 Blood Venous Anaerobic Blood Culture - Final No Growth Day 5 12/15/17 13:28 Foot Left Skin and Soft Tissue MRSA/MSSA (PCR - Final Mrsa Positive S.aureus Positive 12/15/17 13:28 Foot Left Gram Stain - Final 12/15/17 13:28 Foot Left Wound Culture - Final MRSA Morganella Morganii Klebsiella Oxytoca 12/16/17 18:24 Urine Urine Culture - Final No Growth (<1,000 CFU/mL) Assess/Plan/Problems-Billing . Assessment: Mr. Xavier is a 52 yo man with MRSA-infected lower extremity ulceration as well as increased edema and uncontrolled hypertension. Diastolic Dysfunction with massive volume overload/anasarca. S/P I&D 12/20/[address] Hernandez with mild post-operative bleeding and wound vac placement. - Patient Problems (1) Infection of wound due to methicillin resistant Staphylococcus aureus (MRSA) Status: Acute Priority: High Code(s): A49.02 - METHICILLIN RESIS STAPH INFECTION, UNSP SITE SNOMED Code(s): 010946661 Comment: - Bilateral lower extremity wounds - CT scan with no clear bone involvment - Surgery and Ortho consults, input appreciated - S/P Left leg amputated I+D with wound vac placement - Continue Doxycycline BID stop after 6 more doses (3 days ) (2) Acute and chronic respiratory failure with hypoxia Status: Acute Code(s): J96.21 - ACUTE AND CHRONIC RESPIRATORY FAILURE WITH HYPOXIA SNOMED Code(s): 21727168 Comment: - Improving oxygenation - With hypercapnea, improving - Likely 2/2 obesity hypoventilation, COPD, and acute CHF exacerbation - Continue dulera (3) Bilateral lower extremity edema Status: Acute Priority: High Code(s): R60.0 - LOCALIZED EDEMA SNOMED Code( s): 414642237 Comment: - Suspect related to Diastolic dysfunction and fluid overload - Goal net negative 2-2.5L daily - Nutrition consult - Continue Low salt diet - Continue Lasix, Strict I/O - Not compliant with daily weights- trending down weight today 470 (4) Hematuria Status: Acute Code(s): R31.9 - HEMATURIA, UNSPECIFIED SNOMED Code(s): 25735019 Comment: - Hematuria for several days, continues to have a few clots in the tubing. - Patient had darkened urine for 2 weeks before admission per his report. No teja blood or clots - H/H stable - US and CT of abdomen shows a renal cyst - outpatient urology consultation in 7 days - leave medellin catheter in place until seen by urology (5) Hypertension Status: Acute Priority: High Code(s): I10 - ESSENTIAL (PRIMARY) HYPERTENSION SNOMED Code(s): 71558342 Comment: - SBP 120's-130's - Continue Losartan, Amlodipine, and start po lasix (6) Morbid obesity with BMI of 70 and over, adult Status: Acute Priority: High Code(s): E66.01 - MORBID (SEVERE) OBESITY DUE TO EXCESS CALORIES; Z68.45 - BODY MASS INDEX (BMI) 70 OR GREATER, ADULT SNOMED Code(s): 228837985 Comment: - Nutrition and SW consult - Patient refuses weight monitoring (7) DVT prophylaxis Status: Acute Code(s): HUQ2742 - SNOMED Code(s): 087071710 Comment: - No chemical DVT prophylaxis in setting of hematuria and surgical site bleeding - SCDs (8) Full code status Status: Acute Code(s): Z78.9 - OTHER SPECIFIED HEALTH STATUS SNOMED Code(s) : 450175597 Status and Disposition: Discharge when ok with orthopedics. discharge to [facility]
== END 2017-12-26 14:45 | DRG 564 ==
LOC: ED 12:40 → MED 16:08 → OBSVTOIN 12-16 15:30
PROVIDERS: ADMIT Internal Medicine; ATTEND Internal Medicine
PROC: 2W1RX6Z Compression of Left Lower Leg using Pressure Dressing (ICD-10-PCS; 2017-12-20)
PROC: 0HBLXZZ Excision of Left Lower Leg Skin, External Approach (ICD-10-PCS; principal; 2017-12-20 15:45)
DX: T87.44 Infection of amputation stump, left lower extremity (principal); J96.21 Acute and chronic respiratory failure with hypoxia; J96.22 Acute and chronic respiratory failure with hypercapnia; I50.33 Acute on chronic diastolic (congestive) heart failure; L97.929 Non-pressure chronic ulcer of unspecified part of left lower leg with unspecified severity; L03.116 Cellulitis of left lower limb; E87.4 Mixed disorder of acid-base balance; L76.22 Postprocedural hemorrhage of skin and subcutaneous tissue following other procedure; E66.2 Morbid (severe) obesity with alveolar hypoventilation; Z68.45 Body mass index [BMI] 70 or greater, adult; I11.0 Hypertensive heart disease with heart failure; E11.622 Type 2 diabetes mellitus with other skin ulcer; Y83.8 Other surgical procedures as the cause of abnormal reaction of the patient, or of later complication, without mention of misadventure at the time of the procedure; E78.5 Hyperlipidemia, unspecified; J44.9 Chronic obstructive pulmonary disease, unspecified; K02.9 Dental caries, unspecified; R46.0 Very low level of personal hygiene; M85.871 Other specified disorders of bone density and structure, right ankle and foot; M47.9 Spondylosis, unspecified; B95.62 Methicillin resistant Staphylococcus aureus infection as the cause of diseases classified elsewhere; T87.89 Other complications of amputation stump; R60.1 Generalized edema; B37.2 Candidiasis of skin and nail; Y92.234 Operating room of hospital as the place of occurrence of the external cause; M25.519 Pain in unspecified shoulder; E83.42 Hypomagnesemia; R31.9 Hematuria, unspecified; E11.40 Type 2 diabetes mellitus with diabetic neuropathy, unspecified; R16.2 Hepatomegaly with splenomegaly, not elsewhere classified; Z79.84 Long term (current) use of oral hypoglycemic drugs; Y92.9 Unspecified place or not applicable; Z91.19 Patient's noncompliance with other medical treatment and regimen; Z89.512 Acquired absence of left leg below knee; Z89.421 Acquired absence of other right toe(s)
CPT/HCPCS: 36415; 71045; 74177; 76770; 80048; 80053; 80202; 81003; 81015; 82565; 82803; 83036; 83605; 83735; 83880; 84484; 84520; 85014; 85018; 85025; 85610; 85652; 85730; 86140; 86850; 86900; 86901; 87040; 87070; 87077; 87086; 87186; 87205; 87640; 87641; 88305; 93005; 93306; 94640; 99283; A9270-GY; C8929; G8978-GP-CK; G8978-GP-CM; G8979-GP-CI; G8979-GP-CJ; G8979-GP-CL; G8987-GO-CI; G8988-GO-CK; G8989-GO-CI; J1644; J1940; J2001; J2250; J2270; J3010; J3370; J3475; Q9967

== ENCOUNTER 2019-05-09 11:48 | Emergency (ER) | payer MEDICARE ==
--- NOTE | 2019-05-09 12:01 | ED ---
Lower Extremity - HPI Summary HPI Summary: The patient is a 53 y/o M arriving by ambulance to [facility] from long term with a chief complaint of fall this morning. He reports that he has been bed-bound for about a year now and has difficulty walking across his room but began ambulating without his walker and fell. He denies head injury with the fall, but he now is complaining of pain in the left knee. He additionally endorses pain in the left lower leg at the stub near where he has a foot amputation. EMS noted that there were color changes in his skin at this site. He was slightly hypoxic en route with O2 sat in the high 80s at room air, but this is his baseline, and he denies any abnormal SOB. He notes tachycardia with HR in the 125-150 bpm range over the last week. He states hallucinations over the past week as well that he would like to be evaluated for with possible medication change. Current symptoms rated 7/10 in severity. He has taken 5mg Oxycodone at 0300 and 10mg Oxycodone at 0900 prior to the fall for chronic pain. PMHx: DM, HTN, COPD, sleep apnea, arthritis. Former smoker, no EtOH, marijuana use. Medications reviewed. Allergies noted. - History of Current Complaint Stated Complaint: LEFT KNEE PAIN Hx Obtained From: Patient Mechanism Of Injury: Fall From A Standing Position Onset of Pain: Immediate Onset/Duration: Still Present Severity Initially: Severe Severity Currently: Moderate Pain Intensity: 7 Pain Scale Used: 0-10 Numeric Timing: Constant Location: Is Discrete @ - left knee Character Of Pain: Sharp Associated Signs And Symptoms: Positive: Knee Pain - left, Other - pain in LLE at amputation site with color changes, tachycardia, hallucinations;Negative: SOB Aggravating Factor(s): Nothing Alleviating Factor(s): Nothing - Allergies/Home Medications Allergies/Adverse Reactions: Allergies Allergy/AdvReac Type Severity Reaction Status Date / Time No Known Allergies Allergy Verified 05/09/19 11:59 Home Medications: Home Medications Budesonide/Formote 80/4.5(NF) [Symbicort 80/4.5 (NF)] 1 puff INH BID 05/09/19 [ History Confirmed 05/09/19] Hydrochlorothiazide TAB* [Hydrodiuril TAB*] 50 mg PO DAILY 05/09/19 [History Confirmed 05/09/19] Nystatin OINT* 1 applic TOPICAL BID 05/09/19 [History Confirmed 05/09/19] Sulfamethox/Trimethoprim DS* [Bactrim DS 800/160 TAB*] 1 tab PO BID 05/09/19 [ History Confirmed 05/09/19] lisinopriL [Lisinopril 30 MG-] 30 mg PO DAILY 05/09/19 [History Confirmed ] PMH/Surg Hx/FS Hx/Imm Hx Endocrine/Hematology History: Reports: Hx Diabetes Cardiovascular History: Reports: Hx Hypertension Respiratory History: Reports: Hx Chronic Obstructive Pulmonary Disease (COPD), Hx Sleep Apnea - ?? History: Reports: Other Problems/Disorders - PROBLEMS WITH KIDNEYS AFTER HAVING LEFT FOOT AMPUTATION Musculoskeletal History: Reports: Hx Arthritis - BACK, Other Musculoskeletal History - HAND SORENESS Sensory History: Denies: Hx Contacts or Glasses, Hx Hearing Aid Opthamlomology History: Denies: Hx Contacts or Glasses - Surgical History Surgical History: Yes Surgery Procedure, Year, and Place: 2011-LEFT FOOT AMPUTATION-[facility] [place]. DENTAL SURGERY A CHILD Hx Anesthesia Reactions: Yes - UNABLE TO WALK FOR 3 DAYS AFTER SURGERY A CHILD. NO PROB. IN 2012 - Family History Known Family History: Negative: Blood Disorder - Social History Alcohol Use: None Substance Use Type: Reports: Marijuana Hx Tobacco Use: Yes Smoking Status (MU): Former Smoker Review of Systems Positive: Other - tachycardia 125-150 bpm Negative: Shortness Of Breath Positive: Arthralgia - left knee, Other - left lower leg at stub of amputation site Positive: Other - color changes in LLE amputation site Neurological: Other - Negative: head injury Psychological: Other - hallucinations All Other Systems Reviewed And Are Negative: Yes Physical Exam - Summary Physical Exam Summary: Constitutional: Well-developed, Obese, Alert. (-) Distressed Skin: Erythema and ulcer on stump of amputation, Deep erythematous rash in the skin folds, Erythematous rash with lesions on the anterior chest wall HENT: Normocephalic; Atraumatic Eyes: Conjunctiva normal Neck: Musculoskeletal ROM normal neck. (-) JVD, (-) Stridor, (-) Tracheal deviation Cardio: Rhythm regular, tachycardic, Heart sounds normal; Intact distal pulses; The pedal pulses are 2+ and symmetric. Radial pulses are 2+ and symmetric. (-) Murmur Pulmonary/Chest wall: Effort normal. (-) Respiratory distress, (-) Wheezes, (-) Rales Abd: Soft, (-) tenderness, (-) Distension, (-) Guarding, (-) Rebound Musculoskeletal: Left above the ankle amputation, Left knee mildly and intermittently tender to palpation, Pain with ROM at the knee, Non-tender left hip(-) Edema Lymph: (-) Cervical adenopathy Neuro: Alert, Oriented x3 Psych: Mood and affect Normal Triage Information Reviewed: Yes Vital Signs Reviewed: Yes Procedures - Sedation Patient Received Moderate/Deep Sedation with Procedure: No Diagnostics - Laboratory Result Diagrams: 05/09/19 12:04 05/09/19 12:04 Lab Statement: Any lab studies that have been ordered have been reviewed, and results considered in the medical decision making process. - Radiology CXR Radiology Interpretation Completed By: Radiologist Summary of Radiographic Findings: Impression: Cardiomegaly without evidence of active cardiopulmonary disease. Vascular congestion is present. ED physician has reviewed this report. L Knee XR Radiology Interpretation Completed By: Radiologist Summary of Radiographic Findings: Impression: 1. Oblique, comminuted, displaced fracture of the distal femoral metaphysis. 2. Limited exam. ED physician has reviewed this report. L Tib/Fib XR Radiology Interpretation Completed By: Radiologist Summary of Radiographic Findings: Impression: No fracture of the left leg is noted. There has been amputation of the foot. ED physician has reviewed this report. - EKG 1207 Cardiac Rate: Tachycardia - 129 EKG Rhythm: Sinus Tachycardia Summary of EKG Findings: Sinus tachycardia at 129 bpm, right axis deviation, RBBB, normal [place], normal QTc, normal ST, normal T-waves. ED physician has reviewed and interpreted this EKG. Re-Evaluation - Re-Evaluation First Eval Re-Evaluation Time: 13:15 Comment: Patient unable to fit in x-ray machine, will consult orthopedics for need of further imaging Second Eval Re-Evaluation Time: 13:27 Comment: We discussed results and plan for admission Third Eval Re-Evaluation Time: 15:28 Comment: Patient notified of transfer; he is agreeable Lower Extremity Course/Dx - Course Course Of Treatment: Patient is a 53 year-old male presenting with pain in the left knee onset this morning following a mechanical fall as he does not usually ambulate well. He denies SOB despite hypoxia en route. Noted tachycardia throughout this past week. He additionally has pain in the left foot amputation site with color changes. Physical exam reveals obesity, tachycardia, left above the ankle amputation with erythema and ulcer on stump, left knee mildly and intermittently tender to palpation and pain with ROM at the knee, non-tender left hip, deep erythematous rash in the skin folds, and an erythematous rash with lesions on the anterior chest wall. Blood work reveals RDW of 19, absolute lymphocytes of 0.4, INR of 1.27, potassium of 5.5, BUN of 64, creatinine of 1.94 , glucose of 174, lactic acid of 2.1, and troponin of 0.08. An EKG at 1207 reveals sinus tachycardia at 129 bpm with RBBB. Chest x-ray reveals cardiomegaly and vascular congestion. Left knee x-ray is positive for oblique, comminuted, displaced fracture of the distal femoral metaphysis. Left tibia/ fibula x-ray is negative for fracture. Patient administered IV Morphine for pain. Dr. Alberts from orthopedics recommends transfer as the patient is not appropriate for surgery at [facility], and they cannot immobilize the fracture either. I consulted the transfer center, and Dr. Acosta has accepted the patient for transfer to [facility]. Patient understands and agrees with transfer. Diagnosis of left femur fracture, CHF. - Diagnoses Provider Diagnoses: Femur fracture, left, CHF (congestive heart failure), Cellulitis - Physician Notifications Discussed Care Of Patient With: Lisa Alberts - orthopedics Time Discussed With Above Provider: 13:47 Instructed by Provider To: Other - I discussed the patient's case with Dr. Alberts , who will return the call after speaking with her partners since the patient cannot be immobilized and is high-risk for being a surgical candidate. After returning the call, Dr. Alberts states that the patient will need to be transferred. Transfer initiated at 1450. Patient is accepted for transfer to [facility] by Dr. Acosta at 1500. Reason For Transfer: Patient not appropriate for [facility]. Discharge ED - Sign-Out/Discharge Documenting (check all that apply): Patient Departure - Patient accepted for transfer to [facility] by Dr. Acosta. - Discharge Plan Condition: Stable Disposition: TRANS HIGHER L OF CARE FAC Referrals: Ofe Anderson MD [Primary Care Provider] - - Billing Disposition and Condition Condition: STABLE Disposition: Trans Higher Lvl of Care Fac - Attestation Statements Document Initiated by Gumaro: Yes Documenting Scribe: Aimee Mckee Provider For Whom Gumaro is Documenting (Include Credential): Dr. Maribell Demarco MD Scribe Attestation: IAimee, scribed for Dr. Maribell Demarco MD on 05/09/19 at 1615. Scribe Documentation Reviewed: Yes Provider Attestation: The documentation as recorded by the Aimee rodriguez accurately reflects the service I personally performed and the decisions made by me, Dr. Maribell Demarco MD Status of Scribe Document: Viewed
[2019-05-09 12:18] LABS: ABS Eosinophils 0.1 10^3/ul (0-0.6); ABS Lymphocytes 0.4 10^3/ul (1.0-4.8); ABS Monocytes 0.5 10^3/ul (0-0.8); ABS Neutrophils 6.3 10^3/ul (1.5-7.7); Eosinophil % 0.8 %; Hematocrit 47 % (42-52); Hemoglobin 14.9 g/dL (14.0-18.0); Lymphocyte % 4.9 %; Mean Corpuscular HGB Conc 32 g/dL (31-36); Mean Corpuscular Hemoglobin 29 pg (27-31); Mean Corpuscular Volume 91 fL (80-94); Mean Platelet Volume 8.1 fL (7.4-10.4); Platelet Count 182 10^3/uL (150-450); Red Blood Count 5.17 10^6 /uL (4.18-5.48); Red Cell Distribution Width 19 % (10-15); White Blood Count 7.3 10^3/uL (3.5-10.8)
--- OUTSIDE RECORDS SUMMARY | 2019-05-09 12:27 | XMS REPORT ---
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 01-26 Ingrahm infct infct [id number] causing causing diseases diseases classd classd elswhr elswhr Type 2 Type 2 Diagnosis Active Madelaine diabetes diabetes 05-14 Ingrahm mellitus mellitus [id number] with with diabetic diabetic neuropathy, neuropathy, unsp unsp Essential Essential Diagnosis Active Madelaine (primary) (primary) 05-14 Ingrahm hypertensio hypertensio [id number] n n Chronic Chronic Diagnosis Active Madelaine obstructive obstructive 05-14 Ingrahm pulmonary pulmonary [id number] disease, disease, unspecified unspecified Obstructive Obstructive Diagnosis Active Madelaine sleep apnea sleep apnea 05-14 Ingrahm (adult) (adult) [id number] (pediatric) (pediatric) Chronic Chronic Diagnosis Active Madelaine pain 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 Morbid Morbid Diagnosis Active Madelaine (severe) (severe) Ingrahm obesity due obesity due [id number] to excess to excess calories calories Type 2 Type 2 Diagnosis Active Madelaine diabetes diabetes Ingrahm mellitus mellitus [id number] with other with other specified specified complicatio complicatio n n Personal Personal Diagnosis Active Madelaine history of history of Ingrahm other other [id number] diseases of diseases of the the musculoskel musculoskel etal system etal system and and connective connective tissue [facility] Diagnosis Active Madelaine (current) (current) Ingrahm use of oral use of oral [id number] hypoglycemi hypoglycemi c drugs c drugs Pain frequent Pain Mgmt Resolve 2018-06-14 Darya pain d 9-15 14:43:00 (Tejas) 09:45: Billingsley [id number] Cardio edema Cardiovasc Resolve 2018-02-18 Darya ular d 9-15 13:35:00 (Tejas) 09:45: Billingsley [id number] Cardio knowledge/s Cardiovasc Resolve 2018-02-18 Darya kill ular d 15 13:35:00 (Tejas) deficit: pt 09:45: Billingsley [id number] Respiratory dyspnea Respirator Resolve 2018-04-24 Darya present y d 9-15 15:19:00 (Tejas) 09:45: Billingsley [id number] Respiratory CPAP Respirator Resolve 2018-04-24 Quality treatments y d 9-15 15:19:00 Realtime7 in home 09:45: 00 Endo/Sen diabetic Endo/Sen Resolve 2018-02-25 Darya foot care d 915 14:00:00 (Tejas) 09:45: Billingsley [id number] Integument surgical Integument Resolve 2018-03-25 Darya wound d 915 14:35:00 (Tejas) present 09:45: Billingsley [id number] Integument skin Integument Resolve 2018-03-25 Darya integrity d 15 14:35:00 (Tejas) risk 09:45: Billingsley [id number] Integument other wound Integument Resolve 2018-03-25 Quality present d 9-15 14:35:00 Realtime7 09:45: 00 Nutrition nutritional Nutrition Resolve 2018-03-15 Darya restriction d 915 15:24:00 (Tejas) s 09:45: Bill[place]ley [id number] Elimination urinary Eliminatio Resolve 2018-03-01 Darya incontinenc n d 915 09:00:00 (Tejas) e 09:45: Billingsley 00 [id number] Neuro confusion Neuro/Emot Resolve 2018-11-11 Darya present ion d 9-15 14:00:00 (Tejas) 09:45: Billingsley [id number] Neuro anxiety Neuro/Emot Resolve 2018-11-11 Darya present ion d 9-15 14:00:00 (Tejas) 09:45: Billingsley [id number] Activity ADL Activity Resolve 2018-11-11 Darya assistance d 9-15 14:00:00 (Tejas) required 09:45: Billingsley [id number] Safety sanitation Safety Resolve 2018-10-25 Darya hazards d 9-15 15:10:00 (Tejas) present 09:45: Billingsley [id number] Safety fall risk Safety Resolve 2018-10-25 Darya factor d 9-15 15:10:00 (Tejas) present 09:45: Billingsley [id number] Safety risk for Safety Resolve 2018-10-25 Darya hospitaliza d 9-15 15:10:00 (Tejas) tion 09:45: Billingsley [id number] Safety can be left Safety Resolve 2018-11-11 Darya alone for d 9-15 14:00:00 (Tejas) only short 09:45: Bill[place]ley 00 [id number] Medication oral med Meds Resolve 2018-03-15 Darya assistance d 9-15 15:24:00 (Tejas) required 09:45: Billingsley [id number] Medication knowledge/s Meds Resolve 2018-03-15 Darya kill d 9-15 15:24:00 (Tejas) deficit: pt 09:45: Billingsley [id number] Medication potential Meds Resolve 2018-03-15 Darya clinically d 9-15 15:24:00 (Tejas) significant 09:45: Billingsley medication 00 [id number] issue Musculoskel transfer Musculoske Unknown Quality etal assistance letal 15 Realtime7 required 09:45: 00 Sensory impaired Sensory Resolve 2018-11-11 Quality verbal d 9-17 14:00:00 Realtime7 communicati 14:00: on 24 Endo/Sen glucose Endo/Sen Resolve 2018-02-25 Cherrise tolerance d 9-20 14:00:00 Olya problem 13:25: [id number] 00 Nutrition knowledge/s Nutrition Resolve 2018-03-15 Cherrise kill d 9-20 15:24:00 Olya deficit: pt 13:25: [id number] 00 Elimination urinary Eliminatio Resolve 2018-03-01 Cherrise urgency n d 01-31 09:00:00 Olya 13:25: [id number] 00 Elimination urinary Eliminatio Resolve 2018-03-01 Cherrise frequency n d 01-31 09:00:00 Olya 13:25: [id number] 00 Neuro impaired Neuro/Emot Resolve 2018-11-11 Cherrise decision-ma ion d 01-31 14:00:00 [place] wilver 13:25: [id number] 00 Musculoskel requires Musculoske Unknown Cherrise etal human letal 01-31 Olya assist to 13:25: [id number] leave home 00 Cardio hypertensio Cardiovasc Resolve 2018-02-18 Cherrise n ular d 02-04 13:35:00 [place] 13:05: [id number] 00 Musculoskel requires Musculoske Unknown 2017-05 Cherrise etal human letal 0 Olya assist to 13:40: [id number] leave home 00 Cardio hypertensio Cardiovasc Resolve 2017-052018-03-25 Cherrisalba n ular d 0-12 14:35:00 [place] 12:45: [id number] 00 Respiratory smoker Respirator Resolve 2017-052018-04-24 Cherrise y d 0-12 15:19:00 Olya 12:45: [id number] 00 Musculoskel transfer Musculoske Unknown 2017-05 Cherrise etal assistance letal 0-12 [place] required 12:45: [id number] 00 Endo/Sen glucose Endo/Sen Resolve 2017-052018-03-22 Cherrise tolerance d 0-22 15:29:00 [place] problem 13:50: [id number] 00 Elimination urinary Eliminatio Resolve 2017-052018-03-15 Cherrise incontinenc n d 0-22 15:24:00 [place] e 13:50: [id number] 00 Elimination urinary Eliminatio Resolve 2017-052018-03-15 Cherrise urgency n d 0-22 15:24:00 Olya 13:50: [id number] 00 Elimination urinary Eliminatio Resolve 2017-052018-03-15 Cherrise frequency n d 0- 15:24:00 [place] 13:50: [id number] 00 Endo/Sen glucose Endo/Sen Resolve 2017-052018-03-22 Cherrise testing d 0- 15:29:00 Olya dependence 13:30: [id number] 00 Nutrition knowledge/s Nutrition Resolve 2017-052018-03-25 Cherrise kill d 05-18 14:35:00 Olya deficit: pt 11:30: [id number] 00 Elimination urinary Eliminatio Resolve 2017-052018-03-22 Cherrise frequency n d 05-18 15:29:00 Olya 11:30: [id number] 00 Pain frequent Pain Mgmt Resolve 2017-052018-06-14 Stephany pain d 05-25 14:43:00 [place] 14:35: h [id number] 00 Nutrition nutritional Nutrition Resolve 2017-052018-03-25 Stephany restriction d 05-25 14:35:00 [place] s 14:35: h [id number] 00 Elimination urinary Eliminatio Resolve 2017-052018-04-05 Stephany incontinenc n d 05-25 14:45:00 [place] e 14:35: h [id number] 00 Elimination urinary Eliminatio Resolve 2017-052018-04-05 Stephany frequency n d 05-25 14:45:00 [place] 14:35: h [id number] 00 Musculoskel requires Musculoske Unknown 2017-05 Stephany etal special letal 05-25 [place]-[facility] transportat 14:35: h [id number] ion 00 Cardio hypertensio Cardiovasc Resolve 2017-052018-04-12 Cherrise n ular d - 13:46:00 [place] 12:00: [id number] 00 Endo/Sen glucose Endo/Sen Resolve 2017-052018-04-05 Cherrise tolerance d 05-27 14:45:00 Olya problem 12:00: [id number] 00 Elimination urinary Eliminatio Resolve 2017-052018-04-05 Cherrise urgency n d 06-01 14:45:00 Olya 12:45: [id number] 00 Elimination urinary Eliminatio Resolve 2017-052018-04-12 Cherrise urgency n d 06-08 13:46:00 [place] 10:55: [id number] 00 Elimination urinary Eliminatio Resolve 2017-052018-04-12 Cherrise frequency n d 06-08 13:46:00 Olya 10:55: [id number] 00 Endo/Sen glucose Endo/Sen Resolve 2017-052018-04-24 Cherrise tolerance d 06-16 15:19:00 Olya problem 12:20: [id number] 00 Elimination urinary Eliminatio Resolve 2017-052018-04-24 Cherrise frequency n d 06-16 15:19:00 Olya 12:20: [id number] 00 Cardio hypertensio Cardiovasc Resolve 2017-052018-04-24 Cherrise n ular d 2 15:19:00 Olya 10:35: [id number] 00 Elimination urinary Eliminatio Resolve 2017-052018-04-24 Cherrise urgency n d 2 15:19:00 [place] 10:35: [id number] 00 Elimination urinary Eliminatio Resolve 2017-052018-04-24 Stephany incontinenc n d 06-25 15:19:00 [place] e 15:19: h [id number] 00 Cardio hypertensio Cardiovasc Resolve 2017-052018-06-07 Cherrise n ular d 2-14 13:31:00 [place] 13:15: [id number] 00 Respiratory dyspnea Respirator Active 2017-05 Cherrise present y 2- Olya 13:15: [id number] 00 Respiratory CPAP Respirator Active 2017-05 Cherrise treatments y 2-14 [place] in home 13:15: [id number] 00 Respiratory smoker Respirator Resolve 2017-052018-06-03 Cherrise y d 2-14 14:08:00 Olya 13:15: [id number] 00 Elimination urinary Eliminatio Resolve 2017-052018-05-31 Cherrise urgency n d 2-14 14:21:00 [place] 13:15: [id number] 00 Elimination urinary Eliminatio Resolve 2017-052018-05-31 Cherrise frequency n d 2-14 14:21:00 Olya 13:15: [id number] 00 Elimination diarrhea Eliminatio Resolve 2017-052018-05-31 Cherrise n d 2-14 14:21:00 [place] 13:15: [id number] 00 Endo/Sen glucose Endo/Sen Resolve 2017-052018-05-31 Cherrise tolerance d 07-07 14:21:00 Olya problem 13:10: [id number] 00 Infection s/s of Infection Active Stephany infection 05-31 [place] 14:21: h [id number] 00 Respiratory smoker Respirator Resolve 2018-09-13 Cherrise y d 06-05 13:20:00 [place] 13:35: [id number] 00 Endo/Sen glucose Endo/Sen Resolve 2018-06-21 Cherrise tolerance d 06-05 10:26:00 Olya problem 13:35: [id number] 00 Elimination urinary Eliminatio Resolve 2018-06-14 Cherrise urgency n d 06-05 14:43:00 [place] 13:35: [id number] 00 Elimination urinary Eliminatio Resolve 2018-06-14 Cherrise frequency n d 06-05 14:43:00 Olya 13:35: [id number] 00 Cardio hypertensio Cardiovasc Resolve 2018-09-13 Cherrise n ular d 06-10 13:20:00 [place] 11:00: [id number] 00 Elimination urinary Eliminatio Resolve 2018-06-21 Cherrise urgency n d 06-19 10:26:00 [place] 10:50: [id number] 00 Elimination urinary Eliminatio Resolve 2018-06-21 Stephany frequency n d 06-21 10:26:00 [place] 10:26: h [id number] 00 Endo/Sen glucose Endo/Sen Resolve 2018-06-28 Cherrise tolerance d 06-24 14:32:00 [place] problem 11:25: [id number] 00 Elimination urinary Eliminatio Resolve 2018-06-28 Cherrise urgency n d 2-11 14:32:00 [place] 11:25: [id number] 00 Elimination urinary Eliminatio Resolve 2018-06-28 Cherrise frequency n d 2-13 14:32:00 [place] 11:50: [id number] 00 Endo/Sen glucose Endo/Sen Resolve 2018-07-12 Cherrise tolerance d 2- 13:43:00 Olya problem 11:50: [id number] 00 Elimination urinary Eliminatio Resolve 2018-07-12 Cherrise urgency n d 2 13:43:00 Olya 12:30: [id number] 00 Neuro depressive Neuro/Emot Resolve 2018-11-11 Cherrise feelings ion d 2 14:00:00 Olya present 12:30: [id number] 00 Elimination urinary Eliminatio Resolve 2018-07-12 Cherrise frequency n d 2 13:43:00 Olya 10:45: [id number] 00 Elimination urinary Eliminatio Resolve 2018-07-24 Stephany frequency n d 3-06 12:48:00 [place] 11:53: h [id number] 00 Endo/Sen glucose Endo/Sen Resolve 2018-09-18 Cherrise tolerance d 3-11 10:59:00 [place] problem 10:15: [id number] 00 Elimination urinary Eliminatio Resolve 2018-07-24 Cherrise urgency n d 3-11 12:48:00 Olya 10:15: [id number] 00 Pain frequent Pain Mgmt Resolve 2018-07-24 Stephany pain d 3-13 12:48:00 [place] 12:48: h [id number] 00 Elimination urinary Eliminatio Resolve 2018-09-13 Cherrise urgency n d 3-15 13:20:00 Olya 12:40: [id number] 00 Musculoskel requires Musculoske Unknown Cherrise etal human letal 07-26 [place] assist to 12:40: [id number] leave home 00 Respiratory lung sounds Respirator Resolve 2018-09-13 Christel deficit y d 3- 13:20:00 Jeb 15:19: [id number] 00 Safety fire risk Safety Resolve 2018-10-25 Christel present d 08-09 15:10:00 Jeb 15:19: [id number] 00 Elimination urinary Eliminatio Resolve 2018-09-13 Cherrise frequency n d 08-19 13:20:00 Olya 12:50: [id number] 00 Integument surgical Integument Active Cherrise wound 09-04 [place] present 11:45: [id number] 00 Integument skin Integument Active Cherrise integrity 09-04 [place] risk 11:45: [id number] 00 Integument other wound Integument Active Cherrise present 09-04 [place] 11:45: [id number] 00 Nutrition knowledge/s Nutrition Active Cherrise kill 09-04 Olya deficit: pt 11:45: [id number] 00 Nutrition nutritional Nutrition Active Cherrise restriction 09-04 Olya s 11:45: [id number] 00 Musculoskel transfer Musculoske Resolve 2018-10-25 Cherrise etal assistance letal d 09-04 15:10:00 [place] required 11:45: [id number] 00 Musculoskel requires Musculoske Resolve 2018-10-25 Cherrise etal human letal d 09-04 15:10:00 [place] assist to 11:45: [id number] leave home 00 Elimination constipatio Eliminatio Resolve 2018-09-13 Cherrise n n d 09-09 13:20:00 Olya 14:10: [id number] 00 Pain frequent Pain Mgmt Resolve 2018-10-25 Madelaine pain d 09-18 15:10:00 Ingrahm 10:59: [id number] 00 Respiratory smoker Respirator Resolve 2018-10-25 Cherrise y d 09-23 15:10:00 Olya 11:50: [id number] 00 Elimination urinary Eliminatio Resolve 2018-10-25 Cherrise urgency n d 09-23 15:10:00 [place] 11:50: [id number] 00 Cardio hypertensio Cardiovasc Resolve 2018-11-11 Cherrise n ular d 5-29 14:00:00 Olya 11:20: [id number] 00 Endo/Sen glucose Endo/Sen Resolve 2018-10-25 Cherrise tolerance d 5-29 15:10:00 [place] problem 11:20: [id number] 00 Elimination urinary Eliminatio Resolve 2018-10-25 Conchita frequency n d 6-05 15:10:00 Shimon, 14:00: [id number] 00 Cardio edema Cardiovasc Resolve 2018-11-11 Cherrise ular d 6-10 14:00:00 [place] 11:00: [id number] 00 Safety risk for Safety Resolve 2018-11-11 Conchita hospitaliza d 6-17 14:00:00 daniel Robins 14:30: [id number] 00 Respiratory smoker Respirator Resolve 2018-11-11 Cherrise y d 6-19 14:00:00 [place] 10:25: [id number] 00 Endo/Sen glucose Endo/Sen Resolve 2018-11-11 Cherrise tolerance d 6-19 14:00:00 Olya problem 10:25: [id number] 00 Elimination urinary Eliminatio Resolve 2018-11-11 Cherrise urgency n d 6-19 14:00:00 Olya 10:25: [id number] 00 Elimination urinary Eliminatio Resolve 2018-11-11 Cherrise frequency n d 6-19 14:00:00 Olya 10:25: [id number] 00 Musculoskel requires Musculoske Resolve 2018-12-23 Cherrise etal human letal d 6- 11:00:00 Olya assist to 10:25: [id number] leave home 00 Musculoskel requires Musculoske Resolve 2018-12-23 Kerry etal special letal d 11-08 11:00:00 Maria Antonia transportat 18:30: [id number] ion 00 Safety fall risk Safety Resolve 2018-12-13 Cherrise factor d 7- 14:40:00 Olya present 14:45: [id number] 00 Neuro impaired Neuro/Emot Resolve 2018-2018-12-13 Madelaine decision-ma ion d 7-10 14:40:00 Jose Angel wilver 14:00: [id number] 00 Safety risk for Safety Resolve 2018-12-13 Madelaine hospitaliza d 7-10 14:40:00 Ingrabram tion 14:00: [id number] 00 Cardio edema Cardiovasc Resolve 2018-12-23 Cherrise ular d 7-15 11:00:00 [place] 11:00: [id number] 00 Respiratory smoker Respirator Resolve 2018-12-23 Cherrise y d 7-15 11:00:00 [place] 11:00: [id number] 00 Endo/Sen glucose Endo/Sen Resolve 2019-01-01 Cherrise tolerance d 7-15 15:00:00 [place] problem 11:00: [id number] 00 Elimination urinary Eliminatio Resolve 2018-12-13 Cherrise urgency n d 7-15 14:40:00 Olya 11:00: [id number] 00 Safety sanitation Safety Resolve 2018-12-13 Cherrise hazards d 7-15 14:40:00 Olya present 11:00: [id number] 00 Elimination urinary Eliminatio Resolve 2018-12-13 Cherrise frequency n d 7 14:40:00 [place] 11:15: [id number] 00 Neuro depressive Neuro/Emot Resolve 2019-01-17 Cherrise feelings ion d 7 15:25:00 Olya present 11:15: [id number] 00 Cardio hypertensio Cardiovasc Resolve 2018-12-23 Cherrise n ular d 12-04 11:00:00 [place] 14:40: [id number] 00 Musculoskel knowledge/s Musculoske Resolve 2018-12-23 Cherrise etal kill letal d 12-16 11:00:00 Olya deficit: cg 14:15: [id number] 00 Elimination urinary Eliminatio Resolve 2018-12-23 Cherrise urgency n d 12-20 11:00:00 Olya 10:10: [id number] 00 Neuro depressive Neuro/Emot Unknown Cherrise feelings ion 12-20 [place] present 10:10: [id number] 00 Neuro impaired Neuro/Emot Resolve 2019-01-17 Cherrise decision-ma ion d 12-20 15:25:00 Olya wilver 10:10: [id number] 00 Safety risk for Safety Resolve 2018-12-23 Cherrise hospitaliza d 12-20 11:00:00 Olya tion 10:10: [id number] 00 Sensory impaired Sensory Resolve 2019-01-17 Madelaine verbal d 12-23 15:25:00 Ingrahm communicati 11:00: [id number] on 00 Cardio hypertensio Cardiovasc Resolve 2019-01-01 Cherrise n ular d 8 15:00:00 Olya 12:00: [id number] 00 Respiratory smoker Respirator Resolve 2019-01-01 Cherrise y d 8 15:00:00 [place] 12:00: [id number] 00 Elimination urinary Eliminatio Resolve 2019-01-01 Cherrise urgency n d 8 15:00:00 Olya 12:00: [id number] 00 Neuro anxiety Neuro/Emot Resolve 2019-01-17 Cherrise present ion d 12-25 15:25:00 [place] 12:00: [id number] 00 Safety risk for Safety Resolve 2019-01-01 Gigie hospitaliza d 8- 15:00:00 Olya tion 12:00: [id number] 00 Musculoskel requires Musculoske Unknown Cherrise etal human letal 12-25 Olya assist to 12:00: [id number] leave home 00 Respiratory smoker Respirator Resolve 2019-01-17 Cherrise y d 8 15:25:00 [place] 11:45: [id number] 00 Elimination urinary Eliminatio Resolve 2019-01-17 Cherrise urgency n d 8 15:25:00 [place] 11:45: [id number] 00 Safety fall risk Safety Resolve 2019-01-06 Cherrise factor d 01-03 12:25:00 Olya present 11:45: [id number] 00 Safety risk for Safety Resolve 2019-02-12 Cherrise hospitaliza d 01-03 15:15:00 [place] tion 11:45: [id number] 00 Neuro memory Neuro/Emot Resolve 2019-03-31 Cherrise deficit ion d 01-13 15:30:00 Olya needing 11:20: [id number] supervision 00 Elimination urinary Eliminatio Resolve 2019-01-17 Madelaine incontinenc n d 01-17 15:25:00 Ingrahm e 15:25: [id number] 00 Safety fall risk Safety Resolve 2019-01-17 Columba Alan factor d 01-17 15:25:00 Rashid present 15:25: [id number] 00 Cardio hypertensio Cardiovasc Resolve 2019-01-24 Narciso n mary d 01-20 09:00:00 [place] 11:15: [id number] 00 Safety sanitation Safety Resolve 2019-02-12 Cherrise hazards d 01-20 15:15:00 [place] present 11:15: [id number] 00 Respiratory smoker Respirator Resolve 2019-01-24 Madelaine y d 01-24 09:00:00 Ingrahm 09:00: [id number] 00 Musculoskel transfer Musculoske Active Cherrise etal assistance letal 01-29 Olya required 13:25: [id number] 00 Musculoskel requires Musculoske Active Cherrise etal human letal 01-29 Olya assist to 13:25: [id number] leave home 00 Musculoskel requires Musculoske Active Cherrise etal special letal 01-29 Olya transportat 13:25: [id number] ion 00 Respiratory smoker Respirator Resolve 2019-02-05 Cherrise y d 02-03 15:10:00 [place] 10:00: [id number] 00 Elimination urinary Eliminatio Resolve 2019-02-12 Cherrise urgency n d 02-03 15:15:00 Olya 10:00: [id number] 00 Safety fall risk Safety Resolve 2019-02-12 Cherrise factor d 9-27 15:15:00 Olya present 11:15: [id number] 00 Cardio hypertensio Cardiovasc Resolve 2018-052019-02-19 Chershawne n ular d 0-04 14:00:00 Olya 11:50: [id number] 00 Respiratory smoker Respirator Resolve 2018-052019-02-19 Cherrise y d 0-07 14:00:00 Olya 11:30: [id number] 00 Safety risk for Safety Resolve 2018-052019-03-12 Madelaine hospitaliza d 0-09 15:00:00 Ingrahm tion 14:00: [id number] 00 Cardio hypertensio Cardiovasc Resolve 2018-052019-03-19 Cherrise n ular d 0-18 14:00:00 [place] 12:30: [id number] 00 Respiratory smoker Respirator Resolve 2018-052019-03-12 Cherrise y d 0-18 15:00:00 [place] 12:30: [id number] 00 Elimination urinary Eliminatio Resolve 2018-052019-03-12 Cherrise urgency n d 0-18 15:00:00 [place] 12:30: [id number] 00 Respiratory smoker Respirator Resolve 2018-052019-03-19 Cherrise y d 1-04 14:00:00 [place] 09:40: [id number] 00 Elimination urinary Eliminatio Resolve 2018-052019-03-19 Cherrise urgency n d 1-04 14:00:00 Olya 09:40: [id number] 00 Safety risk for Safety Resolve 2018-052019-03-31 Cherrise hospitaliza d 1-04 15:30:00 [place] tion 09:40: [id number] 00 Safety fall risk Safety Resolve 2018-052019-03-31 Madelaine factor d 1-06 15:30:00 [place] present 14:00: [id number] 00 Elimination urinary Eliminatio Resolve 2018-052019-03-31 Madelaine incontinenc n d 1-13 15:30:00 Ingrahm e 15:30: [id number] 00 Respiratory smoker Respirator Resolve 2018-052019-03-31 Cherrise y d 1-15 15:30:00 Olya 10:55: [id number] 00 Elimination urinary Eliminatio Resolve 2018-052019-03-31 Cherrise urgency n d 1-15 15:30:00 Olya 10:55: [id number] 00 Neuro depressive Neuro/Emot Resolve 2018-052019-03-31 Cherrise feelings ion d 05-28 15:30:00 [place] present 10:55: [id number] 00 Neuro impaired Neuro/Emot Resolve 2018-052019-03-31 Cherrise decision-ma ion d 05-28 15:30:00 [place] wilver 10:55: [id number] 00 Safety sanitation Safety Resolve 2018-052019-03-31 Cherrise hazards d 05-28 15:30:00 [place] present 10:55: [id number] 00 Cardio hypertensio Cardiovasc Active 2018-05 Cherrise n ular 06-07 Olya 11:30: [id number] 00 Respiratory smoker Respirator Active 2018-05 Cherrise y 06-16 [place] 14:05: [id number] 00 Elimination urinary Eliminatio Resolve 2018-052019-04-18 Cherrise incontinenc n d - 14:30:00 [place] e 14:05: [id number] 00 Elimination urinary Eliminatio Resolve 2018-052019-04-18 Cherrise urgency n d 06-16 14:30:00 [place] 14:05: [id number] 00 Neuro depressive Neuro/Emot Active 2018-05 Cherrise feelings ion - [place] present 14:05: [id number] 00 Neuro impaired Neuro/Emot Active 2018-05 Cherrise decision-ma ion - [place] wilver 14:05: [id number] 00 Cardio edema Cardiovasc Active 2018-05 Cherrise ular 06-26 Olya 11:50: [id number] 00 Elimination urinary Eliminatio Active 2018-05 Cherrise urgency n - Olya 12:10: [id number] 00 Endo/Sen glucose Endo/Sen Active 2018-05 Cherrise tolerance 07-06 [place] problem 12:45: [id number] 00 Allergies, Adverse Reactions, Alerts Allergy Allergy Status Severity Reaction(s) Onset Inactive Treating Comments Name Type Date Date Clinician Unknown None Active Unknown None Unknown No Known Allergies For This Patient Medications Ordered Filled Start Stop Current Ordering Indication Dosage Frequency Signature Comments Components Medication Medication Date Date Medication? Clinician (SIG) Name Name oxyCODONE 5 oxyCODONE 5 2018- No [place] Unknown Unknown mg tablet mg tablet 01-26 ,Kyle atorvastati atorvastati No [place] Unknown Unknown n 20 mg n 20 mg 01-26 MD,Kyle tablet tablet furosemide furosemide 2017- No [place] Unknown Unknown 20 mg 20 mg 01-26 MD,Kyle tablet tablet losartan losartan 2017- No [place] Unknown Unknown 100 mg 100 mg 01-26 MD,[place] tablet tablet metFORMIN metFORMIN No [place] Unknown Unknown 1,000 mg 1,000 mg 01-26 MD,[place] tablet tablet Dulera 200 Dulera 200 2018- No [place] Unknown Unknown mcg-5 mcg-5 01-26 Kyle COVARRUBIAS mcg/actuati mcg/actuati on HFA on HFA aerosol aerosol inhaler inhaler amLODIPine amLODIPine 2017- No [place] Unknown Unknown 10 mg 10 mg 01-26 ,Kyle tablet tablet lisinopril lisinopril 2017-05- No [place] Unknown Unknown 20 mg 20 mg 0- ,[place] tablet tablet oxyCODONE 5 oxyCODONE 5 No Rafita Unknown Unknown mg tablet mg tablet 06-20 ,Simona lisinopril lisinopril 2018- No Rafita Unknown Unknown 20 mg 20 mg 06-28- ,Simona tablet tablet lisinopril lisinopril No Rafita Unknown Unknown 30 mg 30 mg 2-15 MD,Simona tablet tablet hydroCHLORO hydroCHLORO No Rafita Unknown Unknown thiazide 50 thiazide 50 6-15 MD,Simona mg tablet mg tablet nystatin nystatin No Rafita Unknown Unknown 100,000 100,000 6-15 MD,Simona unit/gram unit/gram topical topical ointment ointment sulfamethox sulfamethox 2018- No Heather Unknown Unknown azole 800 azole 800 11-04 07-08 ,Adam A mg-trimetho mg-trimetho prim 160 mg prim 160 mg tablet tablet Symbicort Symbicort 2018- No Rafita Unknown Unknown 160 mcg-4.5 160 mcg-4.5 7-16 Simona COVARRUBIAS mcg/actuati mcg/actuati on HFA on HFA aerosol aerosol inhaler inhaler sulfamethox sulfamethox 2018-05 2019- Yes Heather Unknown Unknown azole 800 azole 800 06-26 ,Adam A mg-trimetho mg-trimetho prim 160 mg prim 160 mg tablet tablet Vital Signs Vital Name Observation Time Observation Value Comments SYSTOLIC mm[Hg] 2019-05-05 18:09:30 104 mm[Hg] mm[Hg] Method: Sit SYSTOLIC mm[Hg] 1840-05-13 00:00:00 127 mm[Hg] mm[Hg] Method: Lie DIASTOLIC mm[Hg] 2019-05-05 18:09:30 86 mm[Hg] mm[Hg] Method: Sit DIASTOLIC mm[Hg] 1840-05-13 00:00:00 83 mm[Hg] mm[Hg] Method: Lie PULSE 2019-05-05 18:09:30 118 /min /min RESP RATE 2019-05-05 18:09:30 16 /min /min TEMP 2019-05-05 18:09:30 97.3 [degF] Procedures This patient has no known procedures. Results This patient has no known results.
--- OUTSIDE RECORDS SUMMARY | 2019-05-09 12:27 | XMS REPORT ---
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 01-26 Ingrahm infct infct [id number] causing causing diseases diseases classd classd elswhr elswhr Type 2 Type 2 Diagnosis Active Madelaine diabetes diabetes 05-14 Ingrahm mellitus mellitus [id number] with with diabetic diabetic neuropathy, neuropathy, unsp unsp Essential Essential Diagnosis Active Madelaine (primary) (primary) 05-14 Ingrahm hypertensio hypertensio [id number] n n Chronic Chronic Diagnosis Active Madelaine obstructive obstructive 05-14 Ingrahm pulmonary pulmonary [id number] disease, disease, unspecified unspecified Obstructive Obstructive Diagnosis Active Madelaine sleep apnea sleep apnea 05-14 Ingrahm (adult) (adult) [id number] (pediatric) (pediatric) Chronic Chronic Diagnosis Active Madelaine pain 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 Morbid Morbid Diagnosis Active Madelaine (severe) (severe) Ingrahm obesity due obesity due [id number] to excess to excess calories calories Type 2 Type 2 Diagnosis Active Madelaine diabetes diabetes Ingrahm mellitus mellitus [id number] with other with other specified specified complicatio complicatio n n Personal Personal Diagnosis Active Madelaine history of history of Ingrahm other other [id number] diseases of diseases of the the musculoskel musculoskel etal system etal system and and connective connective tissue tissue FDC FDC Diagnosis Active Madelaine (current) (current) Ingrahm use of oral use of oral [id number] hypoglycemi hypoglycemi c drugs c drugs Pain frequent Pain Mgmt Resolve 2018-06-14 Darya pain d 9-15 14:43:00 (Tejas) 09:45: Billingsley [id number] Cardio edema Cardiovasc Resolve 2018-02-18 Darya ular d 9-15 13:35:00 (Tejas) 09:45: Billingsley [id number] Cardio knowledge/s Cardiovasc Resolve 2018-02-18 Darya kill ular d 15 13:35:00 (Tejas) deficit: pt 09:45: Billingsley [id number] Respiratory dyspnea Respirator Resolve 2018-04-24 Darya present y d 9-15 15:19:00 (Tejas) 09:45: Billingsley [id number] Respiratory CPAP Respirator Resolve 2018-04-24 Quality treatments y d 9-15 15:19:00 Realtime7 in home 09:45: 00 Endo/Sen diabetic Endo/Sen Resolve 2018-02-25 Darya foot care d 915 14:00:00 (Tejas) 09:45: Billingsley [id number] Integument surgical Integument Resolve 2018-03-25 Darya wound d 915 14:35:00 (Tejas) present 09:45: Billingsley [id number] Integument skin Integument Resolve 2018-03-25 Darya integrity d 15 14:35:00 (Tejas) risk 09:45: Billingsley [id number] Integument other wound Integument Resolve 2018-03-25 Quality present d 9-15 14:35:00 Realtime7 09:45: 00 Nutrition nutritional Nutrition Resolve 2018-03-15 Darya restriction d 915 15:24:00 (Tejas) s 09:45: Billingsley [id number] Elimination urinary Eliminatio Resolve 2018-03-01 Darya incontinenc n d 915 09:00:00 (Tejas) e 09:45: Billingsley 00 [id number] Neuro confusion Neuro/Emot Resolve 2018-11-11 Darya present ion d 9-15 14:00:00 (Tejas) 09:45: Billingsley [id number] Neuro anxiety Neuro/Emot Resolve 2018-11-11 Darya present ion d 9-15 14:00:00 (Tejas) 09:45: Billingsley [id number] Activity ADL Activity Resolve 2018-11-11 Darya assistance d 9-15 14:00:00 (Tejas) required 09:45: Billingsley [id number] Safety sanitation Safety Resolve 2018-10-25 Darya hazards d 9-15 15:10:00 (Tejas) present 09:45: Billingsley [id number] Safety fall risk Safety Resolve 2018-10-25 Darya factor d 9-15 15:10:00 (Tejas) present 09:45: Billingsley [id number] Safety risk for Safety Resolve 2018-10-25 Darya hospitaliza d 9-15 15:10:00 (Tejas) tion 09:45: Billingsley [id number] Safety can be left Safety Resolve 2018-11-11 Darya alone for d 9-15 14:00:00 (Tejas) only short 09:45: Billingsley 00 [id number] Medication oral med Meds Resolve 2018-03-15 Darya assistance d 9-15 15:24:00 (Tejas) required 09:45: Billingsley [id number] Medication knowledge/s Meds Resolve 2018-03-15 Darya kill d 9-15 15:24:00 (Tejas) deficit: pt 09:45: Billingsley [id number] Medication potential Meds Resolve 2018-03-15 Darya clinically d 9-15 15:24:00 (Tejas) significant 09:45: Billingsley medication 00 [id number] issue Musculoskel transfer Musculoske Unknown Quality etal assistance letal 15 Realtime7 required 09:45: 00 Sensory impaired Sensory Resolve 2018-11-11 Quality verbal d 9-17 14:00:00 Realtime7 communicati 14:00: on 24 Endo/Sen glucose Endo/Sen Resolve 2018-02-25 Cherrise tolerance d 9-20 14:00:00 Olya problem 13:25: [id number] 00 Nutrition knowledge/s Nutrition Resolve 2018-03-15 Cherrise kill d 9-20 15:24:00 Olya deficit: pt 13:25: [id number] 00 Elimination urinary Eliminatio Resolve 2018-03-01 Cherrise urgency n d 01-31 09:00:00 Olya 13:25: [id number] 00 Elimination urinary Eliminatio Resolve 2018-03-01 Cherrise frequency n d 01-31 09:00:00 Olya 13:25: [id number] 00 Neuro impaired Neuro/Emot Resolve 2018-11-11 Cherrise decision-ma ion d 01-31 14:00:00 [place] wilver 13:25: [id number] 00 Musculoskel requires Musculoske Unknown Cherrise etal human letal 01-31 Olya assist to 13:25: [id number] leave home 00 Cardio hypertensio Cardiovasc Resolve 2018-02-18 Cherrise n ular d 02-04 13:35:00 [place] 13:05: [id number] 00 Musculoskel requires Musculoske Unknown 2017-05 Cherrise etal human letal 0 Olya assist to 13:40: [id number] leave home 00 Cardio hypertensio Cardiovasc Resolve 2017-052018-03-25 Cherrisalba n ular d 0-12 14:35:00 [place] 12:45: [id number] 00 Respiratory smoker Respirator Resolve 2017-052018-04-24 Cherrise y d 0-12 15:19:00 Olya 12:45: [id number] 00 Musculoskel transfer Musculoske Unknown 2017-05 Cherrise etal assistance letal 0-12 [place] required 12:45: [id number] 00 Endo/Sen glucose Endo/Sen Resolve 2017-052018-03-22 Cherrise tolerance d 0-22 15:29:00 [place] problem 13:50: [id number] 00 Elimination urinary Eliminatio Resolve 2017-052018-03-15 Cherrise incontinenc n d 0-22 15:24:00 [place] e 13:50: [id number] 00 Elimination urinary Eliminatio Resolve 2017-052018-03-15 Cherrise urgency n d 0-22 15:24:00 Olya 13:50: [id number] 00 Elimination urinary Eliminatio Resolve 2017-052018-03-15 Cherrise frequency n d 0- 15:24:00 [place] 13:50: [id number] 00 Endo/Sen glucose Endo/Sen Resolve 2017-052018-03-22 Cherrise testing d 0- 15:29:00 Olya dependence 13:30: [id number] 00 Nutrition knowledge/s Nutrition Resolve 2017-052018-03-25 Cherrise kill d 05-18 14:35:00 Olya deficit: pt 11:30: [id number] 00 Elimination urinary Eliminatio Resolve 2017-052018-03-22 Cherrise frequency n d 05-18 15:29:00 Olya 11:30: [id number] 00 Pain frequent Pain Mgmt Resolve 2017-052018-06-14 Stephany pain d 05-25 14:43:00 Barber-Zos 14:35: h [id number] 00 Nutrition nutritional Nutrition Resolve 2017-052018-03-25 Stephany restriction d 05-25 14:35:00 Barber-Zos s 14:35: h [id number] 00 Elimination urinary Eliminatio Resolve 2017-052018-04-05 Stephany incontinenc n d 05-25 14:45:00 Gifford-Zos e 14:35: h [id number] 00 Elimination urinary Eliminatio Resolve 2017-052018-04-05 Stephany frequency n d 05-25 14:45:00 Barber-Zos 14:35: h [id number] 00 Musculoskel requires Musculoske Unknown 2017-05 Stephany etal special letal 05-25 Gifford-Zos transportat 14:35: h [id number] ion 00 Cardio hypertensio Cardiovasc Resolve 2017-052018-04-12 Cherrise n ular d - 13:46:00 [place] 12:00: [id number] 00 Endo/Sen glucose Endo/Sen Resolve 2017-052018-04-05 Cherrise tolerance d 05-27 14:45:00 Olya problem 12:00: [id number] 00 Elimination urinary Eliminatio Resolve 2017-052018-04-05 Cherrise urgency n d 06-01 14:45:00 Olya 12:45: [id number] 00 Elimination urinary Eliminatio Resolve 2017-052018-04-12 Cherrise urgency n d 06-08 13:46:00 [place] 10:55: [id number] 00 Elimination urinary Eliminatio Resolve 2017-052018-04-12 Cherrise frequency n d 06-08 13:46:00 Olya 10:55: [id number] 00 Endo/Sen glucose Endo/Sen Resolve 2017-052018-04-24 Cherrise tolerance d 06-16 15:19:00 Olya problem 12:20: [id number] 00 Elimination urinary Eliminatio Resolve 2017-052018-04-24 Cherrise frequency n d 06-16 15:19:00 Olya 12:20: [id number] 00 Cardio hypertensio Cardiovasc Resolve 2017-052018-04-24 Cherrise n ular d 2 15:19:00 Olya 10:35: [id number] 00 Elimination urinary Eliminatio Resolve 2017-052018-04-24 Cherrise urgency n d 2 15:19:00 [place] 10:35: [id number] 00 Elimination urinary Eliminatio Resolve 2017-052018-04-24 Stephany incontinenc n d 06-25 15:19:00 Barber-Zos e 15:19: h [id number] 00 Cardio hypertensio Cardiovasc Resolve 2017-052018-06-07 Cherrise n ular d 2-14 13:31:00 [place] 13:15: [id number] 00 Respiratory dyspnea Respirator Active 2017-05 Cherrise present y 2- Olya 13:15: [id number] 00 Respiratory CPAP Respirator Active 2017-05 Cherrise treatments y 2-14 [place] in home 13:15: [id number] 00 Respiratory smoker Respirator Resolve 2017-052018-06-03 Cherrise y d 2-14 14:08:00 Olya 13:15: [id number] 00 Elimination urinary Eliminatio Resolve 2017-052018-05-31 Cherrise urgency n d 2-14 14:21:00 [place] 13:15: [id number] 00 Elimination urinary Eliminatio Resolve 2017-052018-05-31 Cherrise frequency n d 2-14 14:21:00 Olya 13:15: [id number] 00 Elimination diarrhea Eliminatio Resolve 2017-052018-05-31 Cherrise n d 2-14 14:21:00 [place] 13:15: [id number] 00 Endo/Sen glucose Endo/Sen Resolve 2017-052018-05-31 Cherrise tolerance d 07-07 14:21:00 Olya problem 13:10: [id number] 00 Infection s/s of Infection Active Stephany infection 05-31 Barber-Zos 14:21: h [id number] 00 Respiratory smoker Respirator Resolve 2018-09-13 Cherrise y d 06-05 13:20:00 [place] 13:35: [id number] 00 Endo/Sen glucose Endo/Sen Resolve 2018-06-21 Cherrise tolerance d 06-05 10:26:00 Olya problem 13:35: [id number] 00 Elimination urinary Eliminatio Resolve 2018-06-14 Cherrise urgency n d 06-05 14:43:00 [place] 13:35: [id number] 00 Elimination urinary Eliminatio Resolve 2018-06-14 Cherrise frequency n d 06-05 14:43:00 Olya 13:35: [id number] 00 Cardio hypertensio Cardiovasc Resolve 2018-09-13 Cherrise n ular d 06-10 13:20:00 [place] 11:00: [id number] 00 Elimination urinary Eliminatio Resolve 2018-06-21 Cherrise urgency n d 06-19 10:26:00 [place] 10:50: [id number] 00 Elimination urinary Eliminatio Resolve 2018-06-21 Stephany frequency n d 06-21 10:26:00 Gifford-Zos 10:26: h [id number] 00 Endo/Sen glucose Endo/Sen Resolve 2018-06-28 Cherrise tolerance d 06-24 14:32:00 [place] problem 11:25: [id number] 00 Elimination urinary Eliminatio Resolve 2018-06-28 Cherrise urgency n d 2-11 14:32:00 [place] 11:25: [id number] 00 Elimination urinary Eliminatio Resolve 2018-06-28 Cherrise frequency n d 2-13 14:32:00 [place] 11:50: [id number] 00 Endo/Sen glucose Endo/Sen Resolve 2018-07-12 Cherrise tolerance d 2- 13:43:00 Olya problem 11:50: [id number] 00 Elimination urinary Eliminatio Resolve 2018-07-12 Cherrise urgency n d 2 13:43:00 Olya 12:30: [id number] 00 Neuro depressive Neuro/Emot Resolve 2018-11-11 Cherrise feelings ion d 2 14:00:00 Olya present 12:30: [id number] 00 Elimination urinary Eliminatio Resolve 2018-07-12 Cherrise frequency n d 2 13:43:00 Olya 10:45: [id number] 00 Elimination urinary Eliminatio Resolve 2018-07-24 Stephany frequency n d 3-06 12:48:00 Barber-Zos 11:53: h [id number] 00 Endo/Sen glucose Endo/Sen Resolve 2018-09-18 Cherrise tolerance d 3-11 10:59:00 [place] problem 10:15: [id number] 00 Elimination urinary Eliminatio Resolve 2018-07-24 Cherrise urgency n d 3-11 12:48:00 Olya 10:15: [id number] 00 Pain frequent Pain Mgmt Resolve 2018-07-24 Stephany pain d 3-13 12:48:00 Barber-Zos 12:48: h [id number] 00 Elimination urinary Eliminatio Resolve 2018-09-13 Cherrise urgency n d 3-15 13:20:00 Olya 12:40: [id number] 00 Musculoskel requires Musculoske Unknown Cherrise etal human letal 07-26 [place] assist to 12:40: [id number] leave home 00 Respiratory lung sounds Respirator Resolve 2018-09-13 Christel deficit y d 3- 13:20:00 Jeb 15:19: [id number] 00 Safety fire risk Safety Resolve 2018-10-25 Christel present d 08-09 15:10:00 Jeb 15:19: [id number] 00 Elimination urinary Eliminatio Resolve 2018-09-13 Cherrise frequency n d 08-19 13:20:00 Olya 12:50: [id number] 00 Integument surgical Integument Active Cherrise wound 09-04 [place] present 11:45: [id number] 00 Integument skin Integument Active Cherrise integrity 09-04 [place] risk 11:45: [id number] 00 Integument other wound Integument Active Cherrise present 09-04 [place] 11:45: [id number] 00 Nutrition knowledge/s Nutrition Active Cherrise kill 09-04 Olya deficit: pt 11:45: [id number] 00 Nutrition nutritional Nutrition Active Cherrise restriction 09-04 Olya s 11:45: [id number] 00 Musculoskel transfer Musculoske Resolve 2018-10-25 Cherrise etal assistance letal d 09-04 15:10:00 [place] required 11:45: [id number] 00 Musculoskel requires Musculoske Resolve 2018-10-25 Cherrise etal human letal d 09-04 15:10:00 [place] assist to 11:45: [id number] leave home 00 Elimination constipatio Eliminatio Resolve 2018-09-13 Cherrise n n d 09-09 13:20:00 Olya 14:10: [id number] 00 Pain frequent Pain Mgmt Resolve 2018-10-25 Madelaine pain d 09-18 15:10:00 Ingrahm 10:59: [id number] 00 Respiratory smoker Respirator Resolve 2018-10-25 Cherrise y d 09-23 15:10:00 Olya 11:50: [id number] 00 Elimination urinary Eliminatio Resolve 2018-10-25 Cherrise urgency n d 09-23 15:10:00 [place] 11:50: [id number] 00 Cardio hypertensio Cardiovasc Resolve 2018-11-11 Cherrise n ular d 5-29 14:00:00 Olya 11:20: [id number] 00 Endo/Sen glucose Endo/Sen Resolve 2018-10-25 Cherrise tolerance d 5-29 15:10:00 [place] problem 11:20: [id number] 00 Elimination urinary Eliminatio Resolve 2018-10-25 [place] frequency n d 6-05 15:10:00 Shimon, 14:00: [id number] 00 Cardio edema Cardiovasc Resolve 2018-11-11 Cherrise ular d 6-10 14:00:00 [place] 11:00: [id number] 00 Safety risk for Safety Resolve 2018-11-11 [place] hospitaliza d 6-17 14:00:00 daniel Robins 14:30: [id number] 00 Respiratory smoker Respirator Resolve 2018-11-11 Cherrise y d 6-19 14:00:00 [place] 10:25: [id number] 00 Endo/Sen glucose Endo/Sen Resolve 2018-11-11 Cherrise tolerance d 6-19 14:00:00 Olya problem 10:25: [id number] 00 Elimination urinary Eliminatio Resolve 2018-11-11 Cherrise urgency n d 6-19 14:00:00 Olya 10:25: [id number] 00 Elimination urinary Eliminatio Resolve 2018-11-11 Cherrise frequency n d 6-19 14:00:00 Olya 10:25: [id number] 00 Musculoskel requires Musculoske Resolve 2018-12-23 Cherrise etal human letal d 6- 11:00:00 Olya assist to 10:25: [id number] leave home 00 Musculoskel requires Musculoske Resolve 2018-12-23 Kerry etal special letal d 11-08 11:00:00 Maria Antonia transportat 18:30: [id number] ion 00 Safety fall risk Safety Resolve 2018-12-13 Cherrise factor d 7- 14:40:00 Olya present 14:45: [id number] 00 Neuro impaired Neuro/Emot Resolve 2018-2018-12-13 Madelaine decision-ma ion d 7-10 14:40:00 Jose Angel wilver 14:00: [id number] 00 Safety risk for Safety Resolve 2018-12-13 Madelaine hospitaliza d 7-10 14:40:00 Ingrabram tion 14:00: [id number] 00 Cardio edema Cardiovasc Resolve 2018-12-23 Cherrise ular d 7-15 11:00:00 [place] 11:00: [id number] 00 Respiratory smoker Respirator Resolve 2018-12-23 Cherrise y d 7-15 11:00:00 [place] 11:00: [id number] 00 Endo/Sen glucose Endo/Sen Resolve 2019-01-01 Cherrise tolerance d 7-15 15:00:00 [place] problem 11:00: [id number] 00 Elimination urinary Eliminatio Resolve 2018-12-13 Cherrise urgency n d 7-15 14:40:00 Olya 11:00: [id number] 00 Safety sanitation Safety Resolve 2018-12-13 Cherrise hazards d 7-15 14:40:00 Olya present 11:00: [id number] 00 Elimination urinary Eliminatio Resolve 2018-12-13 Cherrise frequency n d 7 14:40:00 [place] 11:15: [id number] 00 Neuro depressive Neuro/Emot Resolve 2019-01-17 Cherrise feelings ion d 7 15:25:00 Olya present 11:15: [id number] 00 Cardio hypertensio Cardiovasc Resolve 2018-12-23 Cherrise n ular d 12-04 11:00:00 [place] 14:40: [id number] 00 Musculoskel knowledge/s Musculoske Resolve 2018-12-23 Cherrise etal kill letal d 12-16 11:00:00 Olya deficit: cg 14:15: [id number] 00 Elimination urinary Eliminatio Resolve 2018-12-23 Cherrise urgency n d 12-20 11:00:00 Olya 10:10: [id number] 00 Neuro depressive Neuro/Emot Unknown Cherrise feelings ion 12-20 [place] present 10:10: [id number] 00 Neuro impaired Neuro/Emot Resolve 2019-01-17 Cherrise decision-ma ion d 12-20 15:25:00 Olya wilver 10:10: [id number] 00 Safety risk for Safety Resolve 2018-12-23 Cherrise hospitaliza d 12-20 11:00:00 Olya tion 10:10: [id number] 00 Sensory impaired Sensory Resolve 2019-01-17 Madelaine verbal d 12-23 15:25:00 Ingrahm communicati 11:00: [id number] on 00 Cardio hypertensio Cardiovasc Resolve 2019-01-01 Cherrise n ular d 8 15:00:00 Olya 12:00: [id number] 00 Respiratory smoker Respirator Resolve 2019-01-01 Cherrise y d 8 15:00:00 [place] 12:00: [id number] 00 Elimination urinary Eliminatio Resolve 2019-01-01 Cherrise urgency n d 8 15:00:00 Olya 12:00: [id number] 00 Neuro anxiety Neuro/Emot Resolve 2019-01-17 Cherrise present ion d 12-25 15:25:00 [place] 12:00: [id number] 00 Safety risk for Safety Resolve 2019-01-01 Gigie hospitaliza d 8- 15:00:00 Olya tion 12:00: [id number] 00 Musculoskel requires Musculoske Unknown Cherrise etal human letal 12-25 Olya assist to 12:00: [id number] leave home 00 Respiratory smoker Respirator Resolve 2019-01-17 Cherrise y d 8 15:25:00 [place] 11:45: [id number] 00 Elimination urinary Eliminatio Resolve 2019-01-17 Cherrise urgency n d 8 15:25:00 [place] 11:45: [id number] 00 Safety fall risk Safety Resolve 2019-01-06 Cherrise factor d 01-03 12:25:00 Olya present 11:45: [id number] 00 Safety risk for Safety Resolve 2019-02-12 Cherrise hospitaliza d 01-03 15:15:00 [place] tion 11:45: [id number] 00 Neuro memory Neuro/Emot Resolve 2019-03-31 Cherrise deficit ion d 01-13 15:30:00 Olya needing 11:20: [id number] supervision 00 Elimination urinary Eliminatio Resolve 2019-01-17 Madelaine incontinenc n d 01-17 15:25:00 Ingrahm e 15:25: [id number] 00 Safety fall risk Safety Resolve 2019-01-17 Columba Alan factor d 01-17 15:25:00 Rashid present 15:25: [id number] 00 Cardio hypertensio Cardiovasc Resolve 2019-01-24 Narciso n mary d 01-20 09:00:00 [place] 11:15: [id number] 00 Safety sanitation Safety Resolve 2019-02-12 Cherrise hazards d 01-20 15:15:00 [place] present 11:15: [id number] 00 Respiratory smoker Respirator Resolve 2019-01-24 Madelaine y d 01-24 09:00:00 Ingrahm 09:00: [id number] 00 Musculoskel transfer Musculoske Active Cherrise etal assistance letal 01-29 Olya required 13:25: [id number] 00 Musculoskel requires Musculoske Active Cherrise etal human letal 01-29 Olya assist to 13:25: [id number] leave home 00 Musculoskel requires Musculoske Active Cherrise etal special letal 01-29 Olya transportat 13:25: [id number] ion 00 Respiratory smoker Respirator Resolve 2019-02-05 Cherrise y d 02-03 15:10:00 [place] 10:00: [id number] 00 Elimination urinary Eliminatio Resolve 2019-02-12 Cherrise urgency n d 02-03 15:15:00 Olya 10:00: [id number] 00 Safety fall risk Safety Resolve 2019-02-12 Cherrise factor d 9-27 15:15:00 Olya present 11:15: [id number] 00 Cardio hypertensio Cardiovasc Resolve 2018-052019-02-19 Chershawne n ular d 0-04 14:00:00 Olya 11:50: [id number] 00 Respiratory smoker Respirator Resolve 2018-052019-02-19 Cherrise y d 0-07 14:00:00 Olya 11:30: [id number] 00 Safety risk for Safety Resolve 2018-052019-03-12 Madelaine hospitaliza d 0-09 15:00:00 Ingrahm tion 14:00: [id number] 00 Cardio hypertensio Cardiovasc Resolve 2018-052019-03-19 Cherrise n ular d 0-18 14:00:00 [place] 12:30: [id number] 00 Respiratory smoker Respirator Resolve 2018-052019-03-12 Cherrise y d 0-18 15:00:00 [place] 12:30: [id number] 00 Elimination urinary Eliminatio Resolve 2018-052019-03-12 Cherrise urgency n d 0-18 15:00:00 [place] 12:30: [id number] 00 Respiratory smoker Respirator Resolve 2018-052019-03-19 Cherrise y d 1-04 14:00:00 [place] 09:40: [id number] 00 Elimination urinary Eliminatio Resolve 2018-052019-03-19 Cherrise urgency n d 1-04 14:00:00 Olya 09:40: [id number] 00 Safety risk for Safety Resolve 2018-052019-03-31 Cherrise hospitaliza d 1-04 15:30:00 [place] tion 09:40: [id number] 00 Safety fall risk Safety Resolve 2018-052019-03-31 Madelaine factor d 1-06 15:30:00 Ingrahm present 14:00: [id number] 00 Elimination urinary Eliminatio Resolve 2018-052019-03-31 Madelaine incontinenc n d 1-13 15:30:00 Ingrahm e 15:30: [id number] 00 Respiratory smoker Respirator Resolve 2018-052019-03-31 Cherrise y d 1-15 15:30:00 Olya 10:55: [id number] 00 Elimination urinary Eliminatio Resolve 2018-052019-03-31 Cherrise urgency n d 1-15 15:30:00 Olya 10:55: [id number] 00 Neuro depressive Neuro/Emot Resolve 2018-052019-03-31 Cherrise feelings ion d 115 15:30:00 [place] present 10:55: [id number] 00 Neuro impaired Neuro/Emot Resolve 2018-052019-03-31 Cherrise decision-ma ion d 15 15:30:00 [place] wilver 10:55: [id number] 00 Safety sanitation Safety Resolve 2018-052019-03-31 Cherrise hazards d 05-28 15:30:00 [place] present 10:55: [id number] 00 Cardio hypertensio Cardiovasc Active 2018-05 Cherrise n ular 06-07 Olya 11:30: [id number] 00 Respiratory smoker Respirator Active 2018-05 Cherrise y 06-16 [place] 14:05: [id number] 00 Elimination urinary Eliminatio Resolve 2018-052019-04-18 Cherrise incontinenc n d - 14:30:00 [place] e 14:05: [id number] 00 Elimination urinary Eliminatio Resolve 2018-052019-04-18 Cherrise urgency n d - 14:30:00 [place] 14:05: [id number] 00 Neuro depressive Neuro/Emot Active 2018-05 Cherrise feelings ion - [place] present 14:05: [id number] 00 Neuro impaired Neuro/Emot Active 2018-05 Cherrise decision-ma ion - [place] wilver 14:05: [id number] 00 Cardio edema Cardiovasc Active 2018-05 Cherrise ular 06-26 Olya 11:50: [id number] 00 Elimination urinary Eliminatio Resolve 2018-052019-05-02 Cherrise urgency n d 06-29 12:00:00 [place] 12:10: [id number] 00 Endo/Sen glucose Endo/Sen Active 2018-05 Cherrise tolerance 07-06 [place] problem 12:45: [id number] 00 Allergies, Adverse Reactions, Alerts Allergy Allergy [...] n 20 mg n 20 mg 01-26 MD,[place] tablet tablet furosemide furosemide 2017- No [place] Unknown Unknown 20 mg 20 mg 01-26 MD,Kyle tablet tablet losartan losartan 2017- No [place] Unknown Unknown 100 mg 100 mg 01-26 MD,Kyle tablet tablet metFORMIN metFORMIN No [place] Unknown Unknown 1,000 mg 1,000 mg 01-26 MD,Kyle tablet tablet Dulera 200 Dulera 200 2018- No [place] Unknown Unknown mcg-5 mcg-5 01-26-16 ,Kyle mcg/actuati mcg/actuati on HFA on HFA aerosol aerosol inhaler inhaler amLODIPine amLODIPine 2017- No [place] Unknown Unknown 10 mg 10 mg 01-26 MD,[place] tablet tablet lisinopril lisinopril 2017-05- No [place] Unknown Unknown 20 mg 20 mg 0-15 ,[place] tablet tablet oxyCODONE 5 oxyCODONE 5 No Rafita Unknown Unknown mg tablet mg tablet -07 MD,[place] lisinopril lisinopril 2018- No Rafita Unknown Unknown 20 mg 20 mg 06-28 02-20 MD,[place] tablet tablet lisinopril lisinopril No [place] Unknown Unknown 30 mg 30 mg 2-15 MD,[place] tablet tablet hydroCHLORO hydroCHLORO No Rafita Unknown Unknown thiazide 50 thiazide 50 6-15 MD,[place] mg tablet mg tablet nystatin nystatin No Rafita Unknown Unknown 100,000 100,000 6-15 ,[place]ona unit/gram unit/gram topical topical ointment ointment sulfamethox sulfamethox 2018- No Heather Unknown Unknown azole 800 azole 800 11-04 07-08 ,Adam A mg-trimetho mg-trimetho prim 160 mg prim 160 mg tablet tablet Symbicort Symbicort No Rafita Unknown Unknown 160 mcg-4.5 160 mcg-4.5 7-16 Simona COVARRUBIAS mcg/actuati mcg/actuati on HFA on HFA aerosol aerosol inhaler inhaler sulfamethox sulfamethox 2018-05 2019- Yes Heather Unknown Unknown azole 800 azole 800 06-26 12-27 ,Adam A mg-trimetho mg-trimetho prim 160 mg [...]
--- OUTSIDE RECORDS SUMMARY | 2019-05-09 12:27 | XMS REPORT ---
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 staph 01-26 Ingrahm infct infct [id number] causing causing diseases diseases classd classd elswhr elswhr Type 2 Type 2 Diagnosis Active Madelaine diabetes diabetes 05-14 Ingrahm mellitus mellitus [id number] with with diabetic diabetic neuropathy, neuropathy, unsp unsp Essential Essential Diagnosis Active Madelaine (primary) (primary) 05-14 Ingrahm hypertensio hypertensio [id number] n n Chronic Chronic Diagnosis Active Madelaine obstructive obstructive 05-14 Ingrahm pulmonary pulmonary [id number] disease, disease, unspecified unspecified Obstructive Obstructive Diagnosis Active Madelaine sleep apnea sleep apnea 05-14 Ingrahm (adult) (adult) [id number] (pediatric) (pediatric) Chronic Chronic Diagnosis Active Madelaine pain 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 Morbid Morbid Diagnosis Active Madelaine (severe) (severe) Ingrahm obesity due obesity due [id number] to excess to excess calories calories Type 2 Type 2 Diagnosis Active Madelaine diabetes diabetes Ingrahm mellitus mellitus [id number] with other with other specified specified complicatio complicatio n n Personal Personal Diagnosis Active Madelaine history of history of Ingrahm other other [id number] diseases of diseases of the the musculoskel musculoskel etal system etal system and and connective connective tissue tissue detention detention Diagnosis Active Madelaine (current) (current) Ingrahm use of oral use of oral [id number] hypoglycemi hypoglycemi c drugs c drugs Pain frequent Pain Mgmt Resolve 2018-06-14 Darya pain d 9-15 14:43:00 (Tejas) 09:45: Billingsley [id number] Cardio edema Cardiovasc Resolve 2018-02-18 Darya ular d 9-15 13:35:00 (Tejas) 09:45: Billingsley [id number] Cardio knowledge/s Cardiovasc Resolve 2018-02-18 Darya kill ular d 15 13:35:00 (Tejas) deficit: pt 09:45: Billingsley [id number] Respiratory dyspnea Respirator Resolve 2018-04-24 Darya present y d 9-15 15:19:00 (Tejas) 09:45: Billingsley [id number] Respiratory CPAP Respirator Resolve 2018-04-24 Quality treatments y d 9-15 15:19:00 Realtime7 in home 09:45: 00 Endo/Sen diabetic Endo/Sen Resolve 2018-02-25 Darya foot care d 915 14:00:00 (Tejas) 09:45: Billingsley [id number] Integument surgical Integument Resolve 2018-03-25 Darya wound d 915 14:35:00 (Tejas) present 09:45: Billingsley [id number] Integument skin Integument Resolve 2018-03-25 Darya integrity d 15 14:35:00 (Tejas) risk 09:45: Billingsley [id number] Integument other wound Integument Resolve 2018-03-25 Quality present d 9-15 14:35:00 Realtime7 09:45: 00 Nutrition nutritional Nutrition Resolve 2018-03-15 Darya restriction d 915 15:24:00 (Tejas) s 09:45: Billingsley [id number] Elimination urinary Eliminatio Resolve 2018-03-01 Darya incontinenc n d 915 09:00:00 (Tejas) e 09:45: Billingsley 00 [id number] Neuro confusion Neuro/Emot Resolve 2018-11-11 Darya present ion d 9-15 14:00:00 (Tejas) 09:45: Billingsley [id number] Neuro anxiety Neuro/Emot Resolve 2018-11-11 Darya present ion d 9-15 14:00:00 (Tejas) 09:45: Billingsley [id number] Activity ADL Activity Resolve 2018-11-11 Darya assistance d 9-15 14:00:00 (Tejas) required 09:45: Billingsley [id number] Safety sanitation Safety Resolve 2018-10-25 Darya hazards d 9-15 15:10:00 (Tejas) present 09:45: Billingsley [id number] Safety fall risk Safety Resolve 2018-10-25 Darya factor d 9-15 15:10:00 (Tejas) present 09:45: Billingsley [id number] Safety risk for Safety Resolve 2018-10-25 Darya hospitaliza d 9-15 15:10:00 (Tejas) tion 09:45: Billingsley [id number] Safety can be left Safety Resolve 2018-11-11 Darya alone for d 9-15 14:00:00 (Tejas) only short 09:45: Billingsley 00 [id number] Medication oral med Meds Resolve 2018-03-15 Darya assistance d 9-15 15:24:00 (Tejas) required 09:45: Billingsley [id number] Medication knowledge/s Meds Resolve 2018-03-15 Darya kill d 9-15 15:24:00 (Tejas) deficit: pt 09:45: Billingsley [id number] Medication potential Meds Resolve 2018-03-15 Darya clinically d 9-15 15:24:00 (Tejas) significant 09:45: Billingsley medication 00 [id number] issue Musculoskel transfer Musculoske Unknown Quality etal assistance letal 15 Realtime7 required 09:45: 00 Sensory impaired Sensory Resolve 2018-11-11 Quality verbal d 9-17 14:00:00 Realtime7 communicati 14:00: on 24 Endo/Sen glucose Endo/Sen Resolve 2018-02-25 Cherrise tolerance d 9-20 14:00:00 Olya problem 13:25: [id number] 00 Nutrition knowledge/s Nutrition Resolve 2018-03-15 Cherrise kill d 9-20 15:24:00 Olya deficit: pt 13:25: [id number] 00 Elimination urinary Eliminatio Resolve 2018-03-01 Cherrise urgency n d 01-31 09:00:00 Olya 13:25: [id number] 00 Elimination urinary Eliminatio Resolve 2018-03-01 Cherrise frequency n d 01-31 09:00:00 Olya 13:25: [id number] 00 Neuro impaired Neuro/Emot Resolve 2018-11-11 Cherrise decision-ma ion d 01-31 14:00:00 [place] wilver 13:25: [id number] 00 Musculoskel requires Musculoske Unknown Cherrise etal human letal 01-31 Olya assist to 13:25: [id number] leave home 00 Cardio hypertensio Cardiovasc Resolve 2018-02-18 Cherrise n ular d 02-04 13:35:00 [place] 13:05: [id number] 00 Musculoskel requires Musculoske Unknown 2017-05 Cherrise etal human letal 0 Olya assist to 13:40: [id number] leave home 00 Cardio hypertensio Cardiovasc Resolve 2017-052018-03-25 Cherrisalba n ular d 0-12 14:35:00 [place] 12:45: [id number] 00 Respiratory smoker Respirator Resolve 2017-052018-04-24 Cherrise y d 0-12 15:19:00 Olya 12:45: [id number] 00 Musculoskel transfer Musculoske Unknown 2017-05 Cherrise etal assistance letal 0-12 [place] required 12:45: [id number] 00 Endo/Sen glucose Endo/Sen Resolve 2017-052018-03-22 Cherrise tolerance d 0-22 15:29:00 [place] problem 13:50: [id number] 00 Elimination urinary Eliminatio Resolve 2017-052018-03-15 Cherrise incontinenc n d 0-22 15:24:00 [place] e 13:50: [id number] 00 Elimination urinary Eliminatio Resolve 2017-052018-03-15 Cherrise urgency n d 0-22 15:24:00 Olya 13:50: [id number] 00 Elimination urinary Eliminatio Resolve 2017-052018-03-15 Cherrise frequency n d 0- 15:24:00 [place] 13:50: [id number] 00 Endo/Sen glucose Endo/Sen Resolve 2017-052018-03-22 Cherrise testing d 0- 15:29:00 Olya dependence 13:30: [id number] 00 Nutrition knowledge/s Nutrition Resolve 2017-052018-03-25 Cherrise kill d 05-18 14:35:00 Olya deficit: pt 11:30: [id number] 00 Elimination urinary Eliminatio Resolve 2017-052018-03-22 Cherrise frequency n d 05-18 15:29:00 Olya 11:30: [id number] 00 Pain frequent Pain Mgmt Resolve 2017-052018-06-14 Stephany pain d 05-25 14:43:00 [place] 14:35: h [id number] 00 Nutrition nutritional Nutrition Resolve 2017-052018-03-25 Stephany restriction d 05-25 14:35:00 [place] s 14:35: h [id number] 00 Elimination urinary Eliminatio Resolve 2017-052018-04-05 Stephany incontinenc n d 05-25 14:45:00 [place] e 14:35: h [id number] 00 Elimination urinary Eliminatio Resolve 2017-052018-04-05 Stephany frequency n d 05-25 14:45:00 [place] 14:35: h [id number] 00 Musculoskel requires Musculoske Unknown 2017-05 Stephany etal special letal 05-25 [place]-[facility] transportat 14:35: h [id number] ion 00 Cardio hypertensio Cardiovasc Resolve 2017-052018-04-12 Cherrise n ular d - 13:46:00 [place] 12:00: [id number] 00 Endo/Sen glucose Endo/Sen Resolve 2017-052018-04-05 Cherrise tolerance d 05-27 14:45:00 Olya problem 12:00: [id number] 00 Elimination urinary Eliminatio Resolve 2017-052018-04-05 Cherrise urgency n d 06-01 14:45:00 Olya 12:45: [id number] 00 Elimination urinary Eliminatio Resolve 2017-052018-04-12 Cherrise urgency n d 06-08 13:46:00 [place] 10:55: [id number] 00 Elimination urinary Eliminatio Resolve 2017-052018-04-12 Cherrise frequency n d 06-08 13:46:00 Olya 10:55: [id number] 00 Endo/Sen glucose Endo/Sen Resolve 2017-052018-04-24 Cherrise tolerance d 06-16 15:19:00 Olya problem 12:20: [id number] 00 Elimination urinary Eliminatio Resolve 2017-052018-04-24 Cherrise frequency n d 06-16 15:19:00 Olya 12:20: [id number] 00 Cardio hypertensio Cardiovasc Resolve 2017-052018-04-24 Cherrise n ular d 2 15:19:00 Olya 10:35: [id number] 00 Elimination urinary Eliminatio Resolve 2017-052018-04-24 Cherrise urgency n d 2 15:19:00 [place] 10:35: [id number] 00 Elimination urinary Eliminatio Resolve 2017-052018-04-24 Stephany incontinenc n d 06-25 15:19:00 [place] e 15:19: h [id number] 00 Cardio hypertensio Cardiovasc Resolve 2017-052018-06-07 Cherrise n ular d 2-14 13:31:00 [place] 13:15: [id number] 00 Respiratory dyspnea Respirator Active 2017-05 Cherrise present y 2- Olya 13:15: [id number] 00 Respiratory CPAP Respirator Active 2017-05 Cherrise treatments y 2-14 [place] in home 13:15: [id number] 00 Respiratory smoker Respirator Resolve 2017-052018-06-03 Cherrise y d 2-14 14:08:00 Olya 13:15: [id number] 00 Elimination urinary Eliminatio Resolve 2017-052018-05-31 Cherrise urgency n d 2-14 14:21:00 [place] 13:15: [id number] 00 Elimination urinary Eliminatio Resolve 2017-052018-05-31 Cherrise frequency n d 2-14 14:21:00 Olya 13:15: [id number] 00 Elimination diarrhea Eliminatio Resolve 2017-052018-05-31 Cherrise n d 2-14 14:21:00 [place] 13:15: [id number] 00 Endo/Sen glucose Endo/Sen Resolve 2017-052018-05-31 Cherrise tolerance d 07-07 14:21:00 Olya problem 13:10: [id number] 00 Infection s/s of Infection Active Stephany infection 05-31 [place] 14:21: h [id number] 00 Respiratory smoker Respirator Resolve 2018-09-13 Cherrise y d 06-05 13:20:00 [place] 13:35: [id number] 00 Endo/Sen glucose Endo/Sen Resolve 2018-06-21 Cherrise tolerance d 06-05 10:26:00 Olya problem 13:35: [id number] 00 Elimination urinary Eliminatio Resolve 2018-06-14 Cherrise urgency n d 06-05 14:43:00 [place] 13:35: [id number] 00 Elimination urinary Eliminatio Resolve 2018-06-14 Cherrise frequency n d 06-05 14:43:00 Olya 13:35: [id number] 00 Cardio hypertensio Cardiovasc Resolve 2018-09-13 Cherrise n ular d 06-10 13:20:00 [place] 11:00: [id number] 00 Elimination urinary Eliminatio Resolve 2018-06-21 Cherrise urgency n d 06-19 10:26:00 [place] 10:50: [id number] 00 Elimination urinary Eliminatio Resolve 2018-06-21 Stephany frequency n d 06-21 10:26:00 [place] 10:26: h [id number] 00 Endo/Sen glucose Endo/Sen Resolve 2018-06-28 Cherrise tolerance d 06-24 14:32:00 [place] problem 11:25: [id number] 00 Elimination urinary Eliminatio Resolve 2018-06-28 Cherrise urgency n d 2-11 14:32:00 [place] 11:25: [id number] 00 Elimination urinary Eliminatio Resolve 2018-06-28 Cherrise frequency n d 2-13 14:32:00 [place] 11:50: [id number] 00 Endo/Sen glucose Endo/Sen Resolve 2018-07-12 Cherrise tolerance d 2- 13:43:00 Olya problem 11:50: [id number] 00 Elimination urinary Eliminatio Resolve 2018-07-12 Cherrise urgency n d 2 13:43:00 Olya 12:30: [id number] 00 Neuro depressive Neuro/Emot Resolve 2018-11-11 Cherrise feelings ion d 2 14:00:00 Olya present 12:30: [id number] 00 Elimination urinary Eliminatio Resolve 2018-07-12 Cherrise frequency n d 2 13:43:00 Olya 10:45: [id number] 00 Elimination urinary Eliminatio Resolve 2018-07-24 Stephany frequency n d 3-06 12:48:00 [place] 11:53: h [id number] 00 Endo/Sen glucose Endo/Sen Resolve 2018-09-18 Cherrise tolerance d 3-11 10:59:00 [place] problem 10:15: [id number] 00 Elimination urinary Eliminatio Resolve 2018-07-24 Cherrise urgency n d 3-11 12:48:00 Olya 10:15: [id number] 00 Pain frequent Pain Mgmt Resolve 2018-07-24 Stephany pain d 3-13 12:48:00 [place] 12:48: h [id number] 00 Elimination urinary Eliminatio Resolve 2018-09-13 Cherrise urgency n d 3-15 13:20:00 Olya 12:40: [id number] 00 Musculoskel requires Musculoske Unknown Cherrise etal human letal 07-26 [place] assist to 12:40: [id number] leave home 00 Respiratory lung sounds Respirator Resolve 2018-09-13 Christel deficit y d 3- 13:20:00 Jeb 15:19: [id number] 00 Safety fire risk Safety Resolve 2018-10-25 Christel present d 08-09 15:10:00 Jeb 15:19: [id number] 00 Elimination urinary Eliminatio Resolve 2018-09-13 Cherrise frequency n d 08-19 13:20:00 Olya 12:50: [id number] 00 Integument surgical Integument Active Cherrise wound 09-04 [place] present 11:45: [id number] 00 Integument skin Integument Active Cherrise integrity 09-04 [place] risk 11:45: [id number] 00 Integument other wound Integument Active Cherrise present 09-04 [place] 11:45: [id number] 00 Nutrition knowledge/s Nutrition Active Cherrise kill 09-04 Olya deficit: pt 11:45: [id number] 00 Nutrition nutritional Nutrition Active Cherrise restriction 09-04 Olya s 11:45: [id number] 00 Musculoskel transfer Musculoske Resolve 2018-10-25 Cherrise etal assistance letal d 09-04 15:10:00 [place] required 11:45: [id number] 00 Musculoskel requires Musculoske Resolve 2018-10-25 Cherrise etal human letal d 09-04 15:10:00 [place] assist to 11:45: [id number] leave home 00 Elimination constipatio Eliminatio Resolve 2018-09-13 Cherrise n n d 09-09 13:20:00 Olya 14:10: [id number] 00 Pain frequent Pain Mgmt Resolve 2018-10-25 Madelaine pain d 09-18 15:10:00 Ingrahm 10:59: [id number] 00 Respiratory smoker Respirator Resolve 2018-10-25 Cherrise y d 09-23 15:10:00 Olya 11:50: [id number] 00 Elimination urinary Eliminatio Resolve 2018-10-25 Cherrise urgency n d 09-23 15:10:00 [place] 11:50: [id number] 00 Cardio hypertensio Cardiovasc Resolve 2018-11-11 Cherrise n ular d 5-29 14:00:00 Olya 11:20: [id number] 00 Endo/Sen glucose Endo/Sen Resolve 2018-10-25 Cherrise tolerance d 5-29 15:10:00 [place] problem 11:20: [id number] 00 Elimination urinary Eliminatio Resolve 2018-10-25 Conchita frequency n d 6-05 15:10:00 Shimon, 14:00: [id number] 00 Cardio edema Cardiovasc Resolve 2018-11-11 Cherrise ular d 6-10 14:00:00 [place] 11:00: [id number] 00 Safety risk for Safety Resolve 2018-11-11 Conchita hospitaliza d 6-17 14:00:00 daniel Robins 14:30: [id number] 00 Respiratory smoker Respirator Resolve 2018-11-11 Cherrise y d 6-19 14:00:00 [place] 10:25: [id number] 00 Endo/Sen glucose Endo/Sen Resolve 2018-11-11 Cherrise tolerance d 6-19 14:00:00 Olya problem 10:25: [id number] 00 Elimination urinary Eliminatio Resolve 2018-11-11 Cherrise urgency n d 6-19 14:00:00 Olya 10:25: [id number] 00 Elimination urinary Eliminatio Resolve 2018-11-11 Cherrise frequency n d 6-19 14:00:00 Olya 10:25: [id number] 00 Musculoskel requires Musculoske Resolve 2018-12-23 Cherrise etal human letal d 6- 11:00:00 Olya assist to 10:25: [id number] leave home 00 Musculoskel requires Musculoske Resolve 2018-12-23 Kerry etal special letal d 11-08 11:00:00 Maria Antonia transportat 18:30: [id number] ion 00 Safety fall risk Safety Resolve 2018-12-13 Cherrise factor d 7- 14:40:00 Olya present 14:45: [id number] 00 Neuro impaired Neuro/Emot Resolve 2018-2018-12-13 Madelaine decision-ma ion d 7-10 14:40:00 Jose Angel wilver 14:00: [id number] 00 Safety risk for Safety Resolve 2018-12-13 Madelaine hospitaliza d 7-10 14:40:00 Ingrabram tion 14:00: [id number] 00 Cardio edema Cardiovasc Resolve 2018-12-23 Cherrise ular d 7-15 11:00:00 [place] 11:00: [id number] 00 Respiratory smoker Respirator Resolve 2018-12-23 Cherrise y d 7-15 11:00:00 [place] 11:00: [id number] 00 Endo/Sen glucose Endo/Sen Resolve 2019-01-01 Cherrise tolerance d 7-15 15:00:00 [place] problem 11:00: [id number] 00 Elimination urinary Eliminatio Resolve 2018-12-13 Cherrise urgency n d 7-15 14:40:00 Olya 11:00: [id number] 00 Safety sanitation Safety Resolve 2018-12-13 Cherrise hazards d 7-15 14:40:00 Olya present 11:00: [id number] 00 Elimination urinary Eliminatio Resolve 2018-12-13 Cherrise frequency n d 7 14:40:00 [place] 11:15: [id number] 00 Neuro depressive Neuro/Emot Resolve 2019-01-17 Cherrise feelings ion d 7 15:25:00 Olya present 11:15: [id number] 00 Cardio hypertensio Cardiovasc Resolve 2018-12-23 Cherrise n ular d 12-04 11:00:00 [place] 14:40: [id number] 00 Musculoskel knowledge/s Musculoske Resolve 2018-12-23 Cherrise etal kill letal d 12-16 11:00:00 Olya deficit: cg 14:15: [id number] 00 Elimination urinary Eliminatio Resolve 2018-12-23 Cherrise urgency n d 12-20 11:00:00 Olya 10:10: [id number] 00 Neuro depressive Neuro/Emot Unknown Cherrise feelings ion 12-20 [place] present 10:10: [id number] 00 Neuro impaired Neuro/Emot Resolve 2019-01-17 Cherrise decision-ma ion d 12-20 15:25:00 Olya wilver 10:10: [id number] 00 Safety risk for Safety Resolve 2018-12-23 Cherrise hospitaliza d 12-20 11:00:00 Olya tion 10:10: [id number] 00 Sensory impaired Sensory Resolve 2019-01-17 Madelaine verbal d 12-23 15:25:00 Ingrahm communicati 11:00: [id number] on 00 Cardio hypertensio Cardiovasc Resolve 2019-01-01 Cherrise n ular d 8 15:00:00 Olya 12:00: [id number] 00 Respiratory smoker Respirator Resolve 2019-01-01 Cherrise y d 8 15:00:00 [place] 12:00: [id number] 00 Elimination urinary Eliminatio Resolve 2019-01-01 Cherrise urgency n d 8 15:00:00 Olya 12:00: [id number] 00 Neuro anxiety Neuro/Emot Resolve 2019-01-17 Cherrise present ion d 12-25 15:25:00 [place] 12:00: [id number] 00 Safety risk for Safety Resolve 2019-01-01 Gigie hospitaliza d 8- 15:00:00 Olya tion 12:00: [id number] 00 Musculoskel requires Musculoske Unknown Cherrise etal human letal 12-25 Olya assist to 12:00: [id number] leave home 00 Respiratory smoker Respirator Resolve 2019-01-17 Cherrise y d 8 15:25:00 [place] 11:45: [id number] 00 Elimination urinary Eliminatio Resolve 2019-01-17 Cherrise urgency n d 8 15:25:00 [place] 11:45: [id number] 00 Safety fall risk Safety Resolve 2019-01-06 Cherrise factor d 01-03 12:25:00 Olya present 11:45: [id number] 00 Safety risk for Safety Resolve 2019-02-12 Cherrise hospitaliza d 01-03 15:15:00 [place] tion 11:45: [id number] 00 Neuro memory Neuro/Emot Resolve 2019-03-31 Cherrise deficit ion d 01-13 15:30:00 Olya needing 11:20: [id number] supervision 00 Elimination urinary Eliminatio Resolve 2019-01-17 Madelaine incontinenc n d 01-17 15:25:00 Ingrahm e 15:25: [id number] 00 Safety fall risk Safety Resolve 2019-01-17 Columba Alan factor d 01-17 15:25:00 Rashid present 15:25: [id number] 00 Cardio hypertensio Cardiovasc Resolve 2019-01-24 Narciso n mary d 01-20 09:00:00 [place] 11:15: [id number] 00 Safety sanitation Safety Resolve 2019-02-12 Cherrise hazards d 01-20 15:15:00 [place] present 11:15: [id number] 00 Respiratory smoker Respirator Resolve 2019-01-24 Madelaine y d 01-24 09:00:00 Ingrahm 09:00: [id number] 00 Musculoskel transfer Musculoske Active Cherrise etal assistance letal 01-29 Olya required 13:25: [id number] 00 Musculoskel requires Musculoske Active Cherrise etal human letal 01-29 Olya assist to 13:25: [id number] leave home 00 Musculoskel requires Musculoske Active Cherrise etal special letal 01-29 Olya transportat 13:25: [id number] ion 00 Respiratory smoker Respirator Resolve 2019-02-05 Cherrise y d 02-03 15:10:00 [place] 10:00: [id number] 00 Elimination urinary Eliminatio Resolve 2019-02-12 Cherrise urgency n d 02-03 15:15:00 Olya 10:00: [id number] 00 Safety fall risk Safety Resolve 2019-02-12 Cherrise factor d 9-27 15:15:00 Olya present 11:15: [id number] 00 Cardio hypertensio Cardiovasc Resolve 2018-052019-02-19 Chershawne n ular d 0-04 14:00:00 Olya 11:50: [id number] 00 Respiratory smoker Respirator Resolve 2018-052019-02-19 Cherrise y d 0-07 14:00:00 Olya 11:30: [id number] 00 Safety risk for Safety Resolve 2018-052019-03-12 Madelaine hospitaliza d 0-09 15:00:00 Ingrahm tion 14:00: [id number] 00 Cardio hypertensio Cardiovasc Resolve 2018-052019-03-19 Cherrise n ular d 0-18 14:00:00 [place] 12:30: [id number] 00 Respiratory smoker Respirator Resolve 2018-052019-03-12 Cherrise y d 0-18 15:00:00 [place] 12:30: [id number] 00 Elimination urinary Eliminatio Resolve 2018-052019-03-12 Cherrise urgency n d 0-18 15:00:00 [place] 12:30: [id number] 00 Respiratory smoker Respirator Resolve 2018-052019-03-19 Cherrise y d 1-04 14:00:00 [place] 09:40: [id number] 00 Elimination urinary Eliminatio Resolve 2018-052019-03-19 Cherrise urgency n d 1-04 14:00:00 Olya 09:40: [id number] 00 Safety risk for Safety Resolve 2018-052019-03-31 Cherrise hospitaliza d 1-04 15:30:00 [place] tion 09:40: [id number] 00 Safety fall risk Safety Resolve 2018-052019-03-31 Madelaine factor d 1-06 15:30:00 Ingrahm present 14:00: [id number] 00 Elimination urinary Eliminatio Resolve 2018-052019-03-31 Madelaine incontinenc n d 1-13 15:30:00 Ingrahm e 15:30: [id number] 00 Respiratory smoker Respirator Resolve 2018-052019-03-31 Cherrise y d 1-15 15:30:00 Olya 10:55: [id number] 00 Elimination urinary Eliminatio Resolve 2018-052019-03-31 Cherrise urgency n d 1-15 15:30:00 Olya 10:55: [id number] 00 Neuro depressive Neuro/Emot Resolve 2018-052019-03-31 Cherrise feelings ion d 05-28 15:30:00 [place] present 10:55: [id number] 00 Neuro impaired Neuro/Emot Resolve 2018-052019-03-31 Cherrise decision-ma ion d 05-28 15:30:00 [place] wilver 10:55: [id number] 00 Safety sanitation Safety Resolve 2018-052019-03-31 Cherrise hazards d 05-28 15:30:00 [place] present 10:55: [id number] 00 Cardio hypertensio Cardiovasc Active 2018-05 Cherrise n ular 06-07 Olya 11:30: [id number] 00 Respiratory smoker Respirator Active 2018-05 Cherrise y 06-16 [place] 14:05: [id number] 00 Elimination urinary Eliminatio Resolve 2018-052019-04-18 Cherrise incontinenc n d - 14:30:00 [place] e 14:05: [id number] 00 Elimination urinary Eliminatio Resolve 2018-052019-04-18 Cherrise urgency n d - 14:30:00 [place] 14:05: [id number] 00 Neuro depressive Neuro/Emot Active 2018-05 Cherrise feelings ion - [place] present 14:05: [id number] 00 Neuro impaired Neuro/Emot Active 2018-05 Cherrise decision-ma ion - Olya wilver 14:05: [id number] 00 Cardio edema Cardiovasc Active 2018-05 Cherrise ular 06-26 Olya 11:50: [id number] 00 Elimination urinary Eliminatio Active 2018-05 Cherrise urgency n - Olya 12:10: [id number] 00 Allergies, Adverse Reactions, Alerts Allergy Allergy [...] n 20 mg n 20 mg 01-26 MD,[place] tablet tablet furosemide furosemide 2017- No [place] Unknown Unknown 20 mg 20 mg 01-26 ,Kyle tablet tablet losartan losartan 2017- No [place] Unknown Unknown 100 mg 100 mg 01-26 MD,Kyle tablet tablet metFORMIN metFORMIN No [place] Unknown Unknown 1,000 mg 1,000 mg 01-26 ,[place] tablet tablet Dulera 200 Dulera 200 2018- No [place] Unknown Unknown mcg-5 mcg-5 01-2616 Kyle COVARRUBIAS mcg/actuati mcg/actuati on HFA on HFA aerosol aerosol inhaler inhaler amLODIPine amLODIPine 2017- No [place] Unknown Unknown 10 mg 10 mg 01-26 ,[place] tablet tablet lisinopril lisinopril 2017-05- No [place] Unknown Unknown 20 mg 20 mg - ,[place] tablet tablet oxyCODONE 5 oxyCODONE 5 No Rafita Unknown Unknown mg tablet mg tablet 06-20 Simona COVARRUBIAS lisinopril lisinopril 2018- No Rafita Unknown Unknown 20 mg 20 mg 06-28- ,[place] tablet tablet lisinopril lisinopril No Rafita Unknown Unknown 30 mg 30 mg -15 ,[facility] tablet tablet hydroCHLORO hydroCHLORO No Rafita Unknown Unknown thiazide 50 thiazide 50 - ,Simona mg tablet mg tablet nystatin nystatin No Rafita Unknown Unknown 100,000 100,000 10-26 ,[place] unit/gram unit/gram topical topical ointment ointment sulfamethox sulfamethox 2018- No Heather Unknown Unknown azole 800 azole 800 11-04- ,Adam A mg-trimetho mg-trimetho prim 160 mg [...] Observation Time Observation Value Comments SYSTOLIC mm[Hg] 2019-04-28 18:09:23 114 mm[Hg] mm[Hg] Method: Sit SYSTOLIC mm[Hg] 1840-05-13 00:00:00 127 mm[Hg] mm[Hg] Method: Lie DIASTOLIC mm[Hg] 2019-04-28 18:09:23 61 mm[Hg] mm[Hg] Method: Sit DIASTOLIC mm[Hg] 1840-05-13 00:00:00 83 mm[Hg] mm[Hg] Method: Lie PULSE 2019-04-28 18:09:23 103 /min /min RESP RATE 2019-04-28 18:09:23 18 /min /min TEMP 2019-04-28 18:09:23 97.2 [degF] Procedures This patient has no known procedures. Results This patient has no known results.
--- OUTSIDE RECORDS SUMMARY | 2019-05-09 12:27 | XMS REPORT ---
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 staph 01-26 Ingrahm infct infct [id number] causing causing diseases diseases classd classd elswhr elswhr Type 2 Type 2 Diagnosis Active Madelaine diabetes diabetes 05-14 Ingrahm mellitus mellitus [id number] with with diabetic diabetic neuropathy, neuropathy, unsp unsp Essential Essential Diagnosis Active Madelaine (primary) (primary) 05-14 Ingrahm hypertensio hypertensio [id number] n n Chronic Chronic Diagnosis Active Madelaine obstructive obstructive 05-14 Ingrahm pulmonary pulmonary [id number] disease, disease, unspecified unspecified Obstructive Obstructive Diagnosis Active Madelaine sleep apnea sleep apnea 05-14 Ingrahm (adult) (adult) [id number] (pediatric) (pediatric) Chronic Chronic Diagnosis Active Madelaine pain pain Ingrahm syndrome syndrome [id number] Morbid Morbid Diagnosis Active Madelaine (severe) (severe) Ingrahm obesity due obesity due [id number] to excess to excess calories calories Type 2 Type 2 Diagnosis Active Madelaine diabetes diabetes Ingrahm mellitus mellitus [id number] with other with other specified specified complicatio complicatio n n Personal Personal Diagnosis Active Madelaine history of history of Ingrahm other other [id number] diseases of diseases of the the musculoskel musculoskel etal system etal system and and connective connective tissue tissue FCI FCI Diagnosis Active Madelaine (current) (current) Ingrahm use of oral use of oral [id number] hypoglycemi hypoglycemi c drugs c drugs Pain frequent Pain Mgmt Resolve 2018-06-14 Darya pain d 9-15 14:43:00 (Tejas) 09:45: Billingsley [id number] Cardio edema Cardiovasc Resolve 2018-02-18 Darya ular d 9-15 13:35:00 (Tejas) 09:45: Billingsley [id number] Cardio knowledge/s Cardiovasc Resolve 2018-02-18 Darya kill ular d 15 13:35:00 (Tejas) deficit: pt 09:45: Billingsley [id number] Respiratory dyspnea Respirator Resolve 2018-04-24 Darya present y d 9-15 15:19:00 (Tejas) 09:45: Billingsley [id number] Respiratory CPAP Respirator Resolve 2018-04-24 Quality treatments y d 9-15 15:19:00 Realtime7 in home 09:45: 00 Endo/Sen diabetic Endo/Sen Resolve 2018-02-25 Darya foot care d 915 14:00:00 (Tejas) 09:45: Billingsley [id number] Integument surgical Integument Resolve 2018-03-25 Darya wound d 915 14:35:00 (Tejas) present 09:45: Billingsley [id number] Integument skin Integument Resolve 2018-03-25 Daray integrity d 15 14:35:00 (Tejas) risk 09:45: Billnigsley [id number] Integument other wound Integument Resolve 2018-03-25 Quality present d 9-15 14:35:00 Realtime7 09:45: 00 Nutrition nutritional Nutrition Resolve 2018-03-15 Darya restriction d 915 15:24:00 (Tejas) s 09:45: Billingsley [id number] Elimination urinary Eliminatio Resolve 2018-03-01 Darya incontinenc n d 915 09:00:00 (Tejas) e 09:45: Billingsley 00 [id number] Neuro confusion Neuro/Emot Resolve 2018-11-11 Darya present ion d 9-15 14:00:00 (Tejas) 09:45: Billingsley [id number] Neuro anxiety Neuro/Emot Resolve 2018-11-11 Darya present ion d 9-15 14:00:00 (Tejas) 09:45: Billingsley [id number] Activity ADL Activity Resolve 2018-11-11 Darya assistance d 9-15 14:00:00 (Tejas) required 09:45: Billingsley [id number] Safety sanitation Safety Resolve 2018-10-25 Darya hazards d 9-15 15:10:00 (Tejas) present 09:45: Billingsley [id number] Safety fall risk Safety Resolve 2018-10-25 Darya factor d 9-15 15:10:00 (Tejas) present 09:45: Billingsley [id number] Safety risk for Safety Resolve 2018-10-25 Darya hospitaliza d 9-15 15:10:00 (Tejas) tion 09:45: Billingsley [id number] Safety can be left Safety Resolve 2018-11-11 Darya alone for d 9-15 14:00:00 (Tejas) only short 09:45: Billingsley 00 [id number] Medication oral med Meds Resolve 2018-03-15 Darya assistance d 9-15 15:24:00 (Tejas) required 09:45: Billingsley [id number] Medication knowledge/s Meds Resolve 2018-03-15 Darya kill d 9-15 15:24:00 (Tejas) deficit: pt 09:45: Billingsley [id number] Medication potential Meds Resolve 2018-03-15 Darya clinically d 9-15 15:24:00 (Tejas) significant 09:45: Billingsley medication 00 [id number] issue Musculoskel transfer Musculoske Unknown Quality etal assistance letal 15 Realtime7 required 09:45: 00 Sensory impaired Sensory Resolve 2018-11-11 Quality verbal d 9-17 14:00:00 Realtime7 communicati 14:00: on 24 Endo/Sen glucose Endo/Sen Resolve 2018-02-25 Cherrise tolerance d 9-20 14:00:00 Olya problem 13:25: [id number] 00 Nutrition knowledge/s Nutrition Resolve 2018-03-15 Cherrise kill d 9-20 15:24:00 Olya deficit: pt 13:25: [id number] 00 Elimination urinary Eliminatio Resolve 2018-03-01 Cherrise urgency n d 01-31 09:00:00 Olya 13:25: [id number] 00 Elimination urinary Eliminatio Resolve 2018-03-01 Cherrise frequency n d 01-31 09:00:00 Olya 13:25: [id number] 00 Neuro impaired Neuro/Emot Resolve 2018-11-11 Cherrise decision-ma ion d 01-31 14:00:00 [place] wilver 13:25: [id number] 00 Musculoskel requires Musculoske Unknown Cherrise etal human letal 01-31 Olya assist to 13:25: [id number] leave home 00 Cardio hypertensio Cardiovasc Resolve 2018-02-18 Cherrise n ular d 02-04 13:35:00 [place] 13:05: [id number] 00 Musculoskel requires Musculoske Unknown 2017-05 Cherrise etal human letal 0 Olya assist to 13:40: [id number] leave home 00 Cardio hypertensio Cardiovasc Resolve 2017-052018-03-25 Cherrisalba n ular d 0-12 14:35:00 [place] 12:45: [id number] 00 Respiratory smoker Respirator Resolve 2017-052018-04-24 Cherrise y d 0-12 15:19:00 Olya 12:45: [id number] 00 Musculoskel transfer Musculoske Unknown 2017-05 Cherrise etal assistance letal 0-12 [place] required 12:45: [id number] 00 Endo/Sen glucose Endo/Sen Resolve 2017-052018-03-22 Cherrise tolerance d 0-22 15:29:00 [place] problem 13:50: [id number] 00 Elimination urinary Eliminatio Resolve 2017-052018-03-15 Cherrise incontinenc n d 0-22 15:24:00 [place] e 13:50: [id number] 00 Elimination urinary Eliminatio Resolve 2017-052018-03-15 Cherrise urgency n d 0-22 15:24:00 Olya 13:50: [id number] 00 Elimination urinary Eliminatio Resolve 2017-052018-03-15 Cherrise frequency n d 0- 15:24:00 [place] 13:50: [id number] 00 Endo/Sen glucose Endo/Sen Resolve 2017-052018-03-22 Cherrise testing d 0- 15:29:00 Olya dependence 13:30: [id number] 00 Nutrition knowledge/s Nutrition Resolve 2017-052018-03-25 Cherrise kill d 05-18 14:35:00 Olya deficit: pt 11:30: [id number] 00 Elimination urinary Eliminatio Resolve 2017-052018-03-22 Cherrise frequency n d 05-18 15:29:00 Olya 11:30: [id number] 00 Pain frequent Pain Mgmt Resolve 2017-052018-06-14 Stephany pain d 05-25 14:43:00 Barber-Zos 14:35: h [id number] 00 Nutrition nutritional Nutrition Resolve 2017-052018-03-25 Stephany restriction d 05-25 14:35:00 Barber-Zos s 14:35: h [id number] 00 Elimination urinary Eliminatio Resolve 2017-052018-04-05 Stephany incontinenc n d 05-25 14:45:00 Manzanola-Zos e 14:35: h [id number] 00 Elimination urinary Eliminatio Resolve 2017-052018-04-05 Stephany frequency n d 05-25 14:45:00 Barber-Zos 14:35: h [id number] 00 Musculoskel requires Musculoske Unknown 2017-05 Stephany etal special letal 05-25 Manzanola-Zos transportat 14:35: h [id number] ion 00 Cardio hypertensio Cardiovasc Resolve 2017-052018-04-12 Cherrise n ular d - 13:46:00 [place] 12:00: [id number] 00 Endo/Sen glucose Endo/Sen Resolve 2017-052018-04-05 Cherrise tolerance d 05-27 14:45:00 Olya problem 12:00: [id number] 00 Elimination urinary Eliminatio Resolve 2017-052018-04-05 Cherrise urgency n d 06-01 14:45:00 Olya 12:45: [id number] 00 Elimination urinary Eliminatio Resolve 2017-052018-04-12 Cherrise urgency n d 06-08 13:46:00 [place] 10:55: [id number] 00 Elimination urinary Eliminatio Resolve 2017-052018-04-12 Cherrise frequency n d 06-08 13:46:00 Olya 10:55: [id number] 00 Endo/Sen glucose Endo/Sen Resolve 2017-052018-04-24 Cherrise tolerance d 06-16 15:19:00 Olya problem 12:20: [id number] 00 Elimination urinary Eliminatio Resolve 2017-052018-04-24 Cherrise frequency n d 06-16 15:19:00 Olya 12:20: [id number] 00 Cardio hypertensio Cardiovasc Resolve 2017-052018-04-24 Cherrise n ular d 2 15:19:00 Olya 10:35: [id number] 00 Elimination urinary Eliminatio Resolve 2017-052018-04-24 Cherrise urgency n d 2 15:19:00 [place] 10:35: [id number] 00 Elimination urinary Eliminatio Resolve 2017-052018-04-24 Stephany incontinenc n d 06-25 15:19:00 Barber-Zos e 15:19: h [id number] 00 Cardio hypertensio Cardiovasc Resolve 2017-052018-06-07 Cherrise n ular d 2-14 13:31:00 [place] 13:15: [id number] 00 Respiratory dyspnea Respirator Active 2017-05 Cherrise present y 2- Olya 13:15: [id number] 00 Respiratory CPAP Respirator Active 2017-05 Cherrise treatments y 2-14 [place] in home 13:15: [id number] 00 Respiratory smoker Respirator Resolve 2017-052018-06-03 Cherrise y d 2-14 14:08:00 Olya 13:15: [id number] 00 Elimination urinary Eliminatio Resolve 2017-052018-05-31 Cherrise urgency n d 2-14 14:21:00 [place] 13:15: [id number] 00 Elimination urinary Eliminatio Resolve 2017-052018-05-31 Cherrise frequency n d 2-14 14:21:00 Olya 13:15: [id number] 00 Elimination diarrhea Eliminatio Resolve 2017-052018-05-31 Cherrise n d 2-14 14:21:00 [place] 13:15: [id number] 00 Endo/Sen glucose Endo/Sen Resolve 2017-052018-05-31 Cherrise tolerance d 07-07 14:21:00 Olya problem 13:10: [id number] 00 Infection s/s of Infection Active Stephany infection 05-31 Barber-Zos 14:21: h [id number] 00 Respiratory smoker Respirator Resolve 2018-09-13 Cherrise y d 06-05 13:20:00 [place] 13:35: [id number] 00 Endo/Sen glucose Endo/Sen Resolve 2018-06-21 Cherrise tolerance d 06-05 10:26:00 Olya problem 13:35: [id number] 00 Elimination urinary Eliminatio Resolve 2018-06-14 Cherrise urgency n d 06-05 14:43:00 [place] 13:35: [id number] 00 Elimination urinary Eliminatio Resolve 2018-06-14 Cherrise frequency n d 06-05 14:43:00 Olya 13:35: [id number] 00 Cardio hypertensio Cardiovasc Resolve 2018-09-13 Cherrise n ular d 06-10 13:20:00 [place] 11:00: [id number] 00 Elimination urinary Eliminatio Resolve 2018-06-21 Cherrise urgency n d 06-19 10:26:00 [place] 10:50: [id number] 00 Elimination urinary Eliminatio Resolve 2018-06-21 Stephany frequency n d 06-21 10:26:00 Manzanola-Zos 10:26: h [id number] 00 Endo/Sen glucose Endo/Sen Resolve 2018-06-28 Cherrise tolerance d 06-24 14:32:00 [place] problem 11:25: [id number] 00 Elimination urinary Eliminatio Resolve 2018-06-28 Cherrise urgency n d 2-11 14:32:00 [place] 11:25: [id number] 00 Elimination urinary Eliminatio Resolve 2018-06-28 Cherrise frequency n d 2-13 14:32:00 [place] 11:50: [id number] 00 Endo/Sen glucose Endo/Sen Resolve 2018-07-12 Cherrise tolerance d 2- 13:43:00 Olya problem 11:50: [id number] 00 Elimination urinary Eliminatio Resolve 2018-07-12 Cherrise urgency n d 2 13:43:00 Olya 12:30: [id number] 00 Neuro depressive Neuro/Emot Resolve 2018-11-11 Cherrise feelings ion d 2 14:00:00 Olya present 12:30: [id number] 00 Elimination urinary Eliminatio Resolve 2018-07-12 Cherrise frequency n d 2 13:43:00 Olya 10:45: [id number] 00 Elimination urinary Eliminatio Resolve 2018-07-24 Stephany frequency n d 3-06 12:48:00 Barber-Zos 11:53: h [id number] 00 Endo/Sen glucose Endo/Sen Resolve 2018-09-18 Cherrise tolerance d 3-11 10:59:00 [place] problem 10:15: [id number] 00 Elimination urinary Eliminatio Resolve 2018-07-24 Cherrise urgency n d 3-11 12:48:00 Olya 10:15: [id number] 00 Pain frequent Pain Mgmt Resolve 2018-07-24 Stephany pain d 3-13 12:48:00 Barber-Zos 12:48: h [id number] 00 Elimination urinary Eliminatio Resolve 2018-09-13 Cherrise urgency n d 3-15 13:20:00 Olya 12:40: [id number] 00 Musculoskel requires Musculoske Unknown Cherrise etal human letal 07-26 [place] assist to 12:40: [id number] leave home 00 Respiratory lung sounds Respirator Resolve 2018-09-13 Christel deficit y d 3- 13:20:00 Jeb 15:19: [id number] 00 Safety fire risk Safety Resolve 2018-10-25 Christel present d 08-09 15:10:00 Jeb 15:19: [id number] 00 Elimination urinary Eliminatio Resolve 2018-09-13 Cherrise frequency n d 08-19 13:20:00 Olya 12:50: [id number] 00 Integument surgical Integument Active Cherrise wound 09-04 [place] present 11:45: [id number] 00 Integument skin Integument Active Cherrise integrity 09-04 [place] risk 11:45: [id number] 00 Integument other wound Integument Active Cherrise present 09-04 [place] 11:45: [id number] 00 Nutrition knowledge/s Nutrition Active Cherrise kill 09-04 Olya deficit: pt 11:45: [id number] 00 Nutrition nutritional Nutrition Active Cherrise restriction 09-04 Olya s 11:45: [id number] 00 Musculoskel transfer Musculoske Resolve 2018-10-25 Cherrise etal assistance letal d 09-04 15:10:00 [place] required 11:45: [id number] 00 Musculoskel requires Musculoske Resolve 2018-10-25 Cherrise etal human letal d 09-04 15:10:00 [place] assist to 11:45: [id number] leave home 00 Elimination constipatio Eliminatio Resolve 2018-09-13 Cherrise n n d 09-09 13:20:00 Olya 14:10: [id number] 00 Pain frequent Pain Mgmt Resolve 2018-10-25 Madelaine pain d 09-18 15:10:00 Ingrahm 10:59: [id number] 00 Respiratory smoker Respirator Resolve 2018-10-25 Cherrise y d 09-23 15:10:00 Olya 11:50: [id number] 00 Elimination urinary Eliminatio Resolve 2018-10-25 Cherrise urgency n d 09-23 15:10:00 [place] 11:50: [id number] 00 Cardio hypertensio Cardiovasc Resolve 2018-11-11 Cherrise n ular d 5-29 14:00:00 Olya 11:20: [id number] 00 Endo/Sen glucose Endo/Sen Resolve 2018-10-25 Cherrise tolerance d 5-29 15:10:00 [place] problem 11:20: [id number] 00 Elimination urinary Eliminatio Resolve 2018-10-25 Conchita frequency n d 6-05 15:10:00 Shimon, 14:00: [id number] 00 Cardio edema Cardiovasc Resolve 2018-11-11 Cherrise ular d 6-10 14:00:00 [place] 11:00: [id number] 00 Safety risk for Safety Resolve 2018-11-11 Conchita hospitaliza d 6-17 14:00:00 daniel Robins 14:30: [id number] 00 Respiratory smoker Respirator Resolve 2018-11-11 Cherrise y d 6-19 14:00:00 [place] 10:25: [id number] 00 Endo/Sen glucose Endo/Sen Resolve 2018-11-11 Cherrise tolerance d 6-19 14:00:00 Olya problem 10:25: [id number] 00 Elimination urinary Eliminatio Resolve 2018-11-11 Cherrise urgency n d 6-19 14:00:00 Olya 10:25: [id number] 00 Elimination urinary Eliminatio Resolve 2018-11-11 Cherrise frequency n d 6-19 14:00:00 Olya 10:25: [id number] 00 Musculoskel requires Musculoske Resolve 2018-12-23 Cherrise etal human letal d 6- 11:00:00 Olya assist to 10:25: [id number] leave home 00 Musculoskel requires Musculoske Resolve 2018-12-23 Kerry etal special letal d 11-08 11:00:00 Maria Antonia transportat 18:30: [id number] ion 00 Safety fall risk Safety Resolve 2018-12-13 Cherrise factor d 7- 14:40:00 Olya present 14:45: [id number] 00 Neuro impaired Neuro/Emot Resolve 2018-2018-12-13 Madelaine decision-ma ion d 7-10 14:40:00 Jose Angel wilver 14:00: [id number] 00 Safety risk for Safety Resolve 2018-12-13 Madelaine hospitaliza d 7-10 14:40:00 Ingrabram tion 14:00: [id number] 00 Cardio edema Cardiovasc Resolve 2018-12-23 Cherrise ular d 7-15 11:00:00 [place] 11:00: [id number] 00 Respiratory smoker Respirator Resolve 2018-12-23 Cherrise y d 7-15 11:00:00 [place] 11:00: [id number] 00 Endo/Sen glucose Endo/Sen Resolve 2019-01-01 Cherrise tolerance d 7-15 15:00:00 [place] problem 11:00: [id number] 00 Elimination urinary Eliminatio Resolve 2018-12-13 Cherrise urgency n d 7-15 14:40:00 Olya 11:00: [id number] 00 Safety sanitation Safety Resolve 2018-12-13 Cherrise hazards d 7-15 14:40:00 Olya present 11:00: [id number] 00 Elimination urinary Eliminatio Resolve 2018-12-13 Cherrise frequency n d 7 14:40:00 [place] 11:15: [id number] 00 Neuro depressive Neuro/Emot Resolve 2019-01-17 Cherrise feelings ion d 7 15:25:00 Olya present 11:15: [id number] 00 Cardio hypertensio Cardiovasc Resolve 2018-12-23 Cherrise n ular d 12-04 11:00:00 [place] 14:40: [id number] 00 Musculoskel knowledge/s Musculoske Resolve 2018-12-23 Cherrise etal kill letal d 12-16 11:00:00 Olya deficit: cg 14:15: [id number] 00 Elimination urinary Eliminatio Resolve 2018-12-23 Cherrise urgency n d 12-20 11:00:00 Olya 10:10: [id number] 00 Neuro depressive Neuro/Emot Unknown Cherrise feelings ion 12-20 [place] present 10:10: [id number] 00 Neuro impaired Neuro/Emot Resolve 2019-01-17 Cherrise decision-ma ion d 12-20 15:25:00 Olya wilver 10:10: [id number] 00 Safety risk for Safety Resolve 2018-12-23 Cherrise hospitaliza d 12-20 11:00:00 Olya tion 10:10: [id number] 00 Sensory impaired Sensory Resolve 2019-01-17 Madelaine verbal d 12-23 15:25:00 Ingrahm communicati 11:00: [id number] on 00 Cardio hypertensio Cardiovasc Resolve 2019-01-01 Cherrise n ular d 8 15:00:00 Olya 12:00: [id number] 00 Respiratory smoker Respirator Resolve 2019-01-01 Cherrise y d 8 15:00:00 [place] 12:00: [id number] 00 Elimination urinary Eliminatio Resolve 2019-01-01 Cherrise urgency n d 8 15:00:00 Olya 12:00: [id number] 00 Neuro anxiety Neuro/Emot Resolve 2019-01-17 Cherrise present ion d 12-25 15:25:00 [place] 12:00: [id number] 00 Safety risk for Safety Resolve 2019-01-01 Gigie hospitaliza d 8- 15:00:00 Olya tion 12:00: [id number] 00 Musculoskel requires Musculoske Unknown Cherrise etal human letal 12-25 Olya assist to 12:00: [id number] leave home 00 Respiratory smoker Respirator Resolve 2019-01-17 Cherrise y d 8 15:25:00 [place] 11:45: [id number] 00 Elimination urinary Eliminatio Resolve 2019-01-17 Cherrise urgency n d 8 15:25:00 [place] 11:45: [id number] 00 Safety fall risk Safety Resolve 2019-01-06 Cherrise factor d 01-03 12:25:00 Olya present 11:45: [id number] 00 Safety risk for Safety Resolve 2019-02-12 Cherrise hospitaliza d 01-03 15:15:00 [place] tion 11:45: [id number] 00 Neuro memory Neuro/Emot Resolve 2019-03-31 Cherrise deficit ion d 01-13 15:30:00 Olya needing 11:20: [id number] supervision 00 Elimination urinary Eliminatio Resolve 2019-01-17 Madelaine incontinenc n d 01-17 15:25:00 Ingrahm e 15:25: [id number] 00 Safety fall risk Safety Resolve 2019-01-17 Columba Alan factor d 01-17 15:25:00 Rashid present 15:25: [id number] 00 Cardio hypertensio Cardiovasc Resolve 2019-01-24 Narciso n mary d 01-20 09:00:00 [place] 11:15: [id number] 00 Safety sanitation Safety Resolve 2019-02-12 Cherrise hazards d 01-20 15:15:00 [place] present 11:15: [id number] 00 Respiratory smoker Respirator Resolve 2019-01-24 Madelaine y d 01-24 09:00:00 Ingrahm 09:00: [id number] 00 Musculoskel transfer Musculoske Active Cherrise etal assistance letal 01-29 Olya required 13:25: [id number] 00 Musculoskel requires Musculoske Active Cherrise etal human letal 01-29 Olya assist to 13:25: [id number] leave home 00 Musculoskel requires Musculoske Active Cherrise etal special letal 01-29 Olya transportat 13:25: [id number] ion 00 Respiratory smoker Respirator Resolve 2019-02-05 Cherrise y d 02-03 15:10:00 [place] 10:00: [id number] 00 Elimination urinary Eliminatio Resolve 2019-02-12 Cherrise urgency n d 02-03 15:15:00 Olya 10:00: [id number] 00 Safety fall risk Safety Resolve 2019-02-12 Cherrise factor d 9-27 15:15:00 Olya present 11:15: [id number] 00 Cardio hypertensio Cardiovasc Resolve 2018-052019-02-19 Chershawne n ular d 0-04 14:00:00 Olya 11:50: [id number] 00 Respiratory smoker Respirator Resolve 2018-052019-02-19 Cherrise y d 0-07 14:00:00 Olya 11:30: [id number] 00 Safety risk for Safety Resolve 2018-052019-03-12 Madelaine hospitaliza d 0-09 15:00:00 Ingrahm tion 14:00: [id number] 00 Cardio hypertensio Cardiovasc Resolve 2018-052019-03-19 Cherrise n ular d 0-18 14:00:00 [place] 12:30: [id number] 00 Respiratory smoker Respirator Resolve 2018-052019-03-12 Cherrise y d 0-18 15:00:00 [place] 12:30: [id number] 00 Elimination urinary Eliminatio Resolve 2018-052019-03-12 Cherrise urgency n d 0-18 15:00:00 [place] 12:30: [id number] 00 Respiratory smoker Respirator Resolve 2018-052019-03-19 Cherrise y d 1-04 14:00:00 [place] 09:40: [id number] 00 Elimination urinary Eliminatio Resolve 2018-052019-03-19 Cherrise urgency n d 1-04 14:00:00 Olya 09:40: [id number] 00 Safety risk for Safety Resolve 2018-052019-03-31 Cherrise hospitaliza d 1-04 15:30:00 [place] tion 09:40: [id number] 00 Safety fall risk Safety Resolve 2018-052019-03-31 Madelaine factor d 1-06 15:30:00 Ingrahm present 14:00: [id number] 00 Elimination urinary Eliminatio Resolve 2018-052019-03-31 Madelaine incontinenc n d 1-13 15:30:00 Ingrahm e 15:30: [id number] 00 Respiratory smoker Respirator Resolve 2018-052019-03-31 Cherrise y d 1-15 15:30:00 Olya 10:55: [id number] 00 Elimination urinary Eliminatio Resolve 2018-052019-03-31 Cherrise urgency n d 1-15 15:30:00 Olya 10:55: [id number] 00 Neuro depressive Neuro/Emot Resolve 2018-052019-03-31 Cherrise feelings ion d 05-28 15:30:00 [place] present 10:55: [id number] 00 Neuro impaired Neuro/Emot Resolve 2018-052019-03-31 Cherrise decision-ma ion d 05-28 15:30:00 [place] wilver 10:55: [id number] 00 Safety sanitation Safety Resolve 2018-052019-03-31 Cherrise hazards d 05-28 15:30:00 [place] present 10:55: [id number] 00 Cardio hypertensio Cardiovasc Active 2018-05 Cherrise n ular 06-07 Olya 11:30: [id number] 00 Respiratory smoker Respirator Active 2018-05 Cherrise y 06-16 [place] 14:05: [id number] 00 Elimination urinary Eliminatio Resolve 2018-052019-04-18 Cherrise incontinenc n d - 14:30:00 [place] e 14:05: [id number] 00 Elimination urinary Eliminatio Resolve 2018-052019-04-18 Cherrise urgency n d - 14:30:00 [place] 14:05: [id number] 00 Neuro depressive Neuro/Emot Active 2018-05 Cherrise feelings ion - [place] present 14:05: [id number] 00 Neuro impaired Neuro/Emot Active 2018-05 Cherrise decision-ma ion - Olya wilver 14:05: [id number] 00 Cardio edema Cardiovasc Active 2018-05 Cherrise ular 06-26 Olya 11:50: [id number] 00 Elimination urinary Eliminatio Active 2018-05 Cherrise urgency n - Olya 12:10: [id number] 00 Allergies, Adverse Reactions, Alerts Allergy Allergy [...] n 20 mg n 20 mg 01-26 MD,Mahaffey tablet tablet furosemide furosemide 2017- No [place]ara Unknown Unknown 20 mg 20 mg 01-26 ,Kyle tablet tablet losartan losartan 2017- No [place] Unknown Unknown 100 mg 100 mg 01-26 MD,Kyle tablet tablet metFORMIN metFORMIN No [place] Unknown Unknown 1,000 mg 1,000 mg 01-26 ,Mahaffey tablet tablet Dulera 200 Dulera 200 2018- No [place] Unknown Unknown mcg-5 mcg-5 01-2616 Kyle COVARRUBIAS mcg/actuati mcg/actuati on HFA on HFA aerosol aerosol inhaler inhaler amLODIPine amLODIPine 2017- No [place] Unknown Unknown 10 mg 10 mg 01-26 ,Mahaffey tablet tablet lisinopril lisinopril 2017-05- No [place] Unknown Unknown 20 mg 20 mg - ,Mahaffey tablet tablet oxyCODONE 5 oxyCODONE 5 No Rafita Unknown Unknown mg tablet mg tablet 06-20 Simona COVARRUBIAS lisinopril lisinopril 2018- No Rafita Unknown Unknown 20 mg 20 mg 06-28- ,Simona tablet tablet lisinopril lisinopril No Rafita Unknown Unknown 30 mg 30 mg -15 ,[facility] tablet tablet hydroCHLORO hydroCHLORO No Rafita [...]
--- OUTSIDE RECORDS SUMMARY | 2019-05-09 12:27 | XMS REPORT ---
:1965 Author [facility] Care Team Providers Name Role Phone Unavailable Unavailable Unavailable Problems Condition Condition Condition Status Onset Resolution Last Treating Comments Name Details Category Date Date Treatment Clinician Date Infection Infection Diagnosis Active Madelaine of of 01-26 Ingrahm amputation amputation [id number] stump, left stump, left lower lower extremity extremity Methicillin Methicillin Diagnosis Active Madelaine resis staph resis staph 01-26 Ingrahm infct infct [id number] causing causing diseases diseases classd classd elswhr elswhr Type 2 Type 2 Diagnosis Active Madelaine diabetes diabetes 05-14 Ingrahm mellitus mellitus [id number] with with diabetic diabetic neuropathy, neuropathy, unsp unsp Essential Essential Diagnosis Active Madelaine (primary) (primary) 05-14 Ingrahm hypertensio hypertensio [id number] n n Chronic Chronic Diagnosis Active Madelaine obstructive obstructive 05-14 Ingrahm pulmonary pulmonary [id number] disease, disease, unspecified unspecified Obstructive Obstructive Diagnosis Active Madelaine sleep apnea sleep apnea 05-14 Ingrahm (adult) (adult) [id number] (pediatric) (pediatric) Chronic Chronic Diagnosis Active Madelaine pain 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 Morbid Morbid Diagnosis Active Madelaine (severe) (severe) Ingrahm obesity due obesity due [id number] to excess to excess calories calories Type 2 Type 2 Diagnosis Active Madelaine diabetes diabetes Ingrahm mellitus mellitus [id number] with other with other specified specified complicatio complicatio n n Personal Personal Diagnosis Active Madelaine history of history of Ingrahm other other [id number] diseases of diseases of the the musculoskel musculoskel etal system etal system and and connective connective tissue tissue CHCF CHCF Diagnosis Active Madelaine (current) (current) Ingrahm use of oral use of oral [id number] hypoglycemi hypoglycemi c drugs c drugs Pain frequent Pain Mgmt Resolve 2018-06-14 Darya pain d 9-15 14:43:00 (Tejas) 09:45: Billingsley [id number] Cardio edema Cardiovasc Resolve 2018-02-18 Darya ular d 9-15 13:35:00 (Tejas) 09:45: Billingsley [id number] Cardio knowledge/s Cardiovasc Resolve 2018-02-18 Darya kill ular d 15 13:35:00 (Tejas) deficit: pt 09:45: Billingsley [id number] Respiratory dyspnea Respirator Resolve 2018-04-24 Darya present y d 9-15 15:19:00 (Tejas) 09:45: Billingsley [id number] Respiratory CPAP Respirator Resolve 2018-04-24 Quality treatments y d 9-15 15:19:00 Realtime7 in home 09:45: 00 Endo/Sen diabetic Endo/Sen Resolve 2018-02-25 Darya foot care d 915 14:00:00 (Tejas) 09:45: Billingsley [id number] Integument surgical Integument Resolve 2018-03-25 Darya wound d 915 14:35:00 (Tejas) present 09:45: Billingsley [id number] Integument skin Integument Resolve 2018-03-25 Darya integrity d 15 14:35:00 (Tejas) risk 09:45: Billingsley [id number] Integument other wound Integument Resolve 2018-03-25 Quality present d 9-15 14:35:00 Realtime7 09:45: 00 Nutrition nutritional Nutrition Resolve 2018-03-15 Darya restriction d 915 15:24:00 (Tejas) s 09:45: Billingsley [id number] Elimination urinary Eliminatio Resolve 2018-03-01 Darya incontinenc n d 915 09:00:00 (Tejas) e 09:45: Billingsley 00 [id number] Neuro confusion Neuro/Emot Resolve 2018-11-11 Darya present ion d 9-15 14:00:00 (Tejas) 09:45: Billingsley [id number] Neuro anxiety Neuro/Emot Resolve 2018-11-11 Darya present ion d 9-15 14:00:00 (Tejas) 09:45: Billingsley [id number] Activity ADL Activity Resolve 2018-11-11 Darya assistance d 9-15 14:00:00 (Tejas) required 09:45: Billingsley [id number] Safety sanitation Safety Resolve 2018-10-25 Darya hazards d 9-15 15:10:00 (Tejas) present 09:45: Billingsley [id number] Safety fall risk Safety Resolve 2018-10-25 Darya factor d 9-15 15:10:00 (Tejas) present 09:45: Billingsley [id number] Safety risk for Safety Resolve 2018-10-25 Darya hospitaliza d 9-15 15:10:00 (Tejas) tion 09:45: Billingsley [id number] Safety can be left Safety Resolve 2018-11-11 Darya alone for d 9-15 14:00:00 (Tejas) only short 09:45: Billingsley 00 [id number] Medication oral med Meds Resolve 2018-03-15 Darya assistance d 9-15 15:24:00 (Tejas) required 09:45: Billingsley [id number] Medication knowledge/s Meds Resolve 2018-03-15 Darya kill d 9-15 15:24:00 (Tejas) deficit: pt 09:45: Billingsley [id number] Medication potential Meds Resolve 2018-03-15 Darya clinically d 9-15 15:24:00 (Tejas) significant 09:45: Billingsley medication 00 [id number] issue Musculoskel transfer Musculoske Unknown Quality etal assistance letal 15 Realtime7 required 09:45: 00 Sensory impaired Sensory Resolve 2018-11-11 Quality verbal d 9-17 14:00:00 Realtime7 communicati 14:00: on 24 Endo/Sen glucose Endo/Sen Resolve 2018-02-25 Cherrise tolerance d 9-20 14:00:00 Olya problem 13:25: [id number] 00 Nutrition knowledge/s Nutrition Resolve 2018-03-15 Cherrise kill d 9-20 15:24:00 Olya deficit: pt 13:25: [id number] 00 Elimination urinary Eliminatio Resolve 2018-03-01 Cherrise urgency n d 01-31 09:00:00 Olya 13:25: [id number] 00 Elimination urinary Eliminatio Resolve 2018-03-01 Cherrise frequency n d 01-31 09:00:00 Olya 13:25: [id number] 00 Neuro impaired Neuro/Emot Resolve 2018-11-11 Cherrise decision-ma ion d 01-31 14:00:00 Henley wilver 13:25: [id number] 00 Musculoskel requires Musculoske Unknown Cherrise etal human letal 01-31 Olya assist to 13:25: [id number] leave home 00 Cardio hypertensio Cardiovasc Resolve 2018-02-18 Cherrise n ular d 02-04 13:35:00 Henley 13:05: [id number] 00 Musculoskel requires Musculoske Unknown 2017-05 Cherrise etal human letal 0 Olya assist to 13:40: [id number] leave home 00 Cardio hypertensio Cardiovasc Resolve 2017-052018-03-25 Cherrisalba n ular d 0-12 14:35:00 Henley 12:45: [id number] 00 Respiratory smoker Respirator Resolve 2017-052018-04-24 Cherrise y d 0-12 15:19:00 Olya 12:45: [id number] 00 Musculoskel transfer Musculoske Unknown 2017-05 Cherrise etal assistance letal 0-12 Henley required 12:45: [id number] 00 Endo/Sen glucose Endo/Sen Resolve 2017-052018-03-22 Cherrise tolerance d 0-22 15:29:00 Henley problem 13:50: [id number] 00 Elimination urinary Eliminatio Resolve 2017-052018-03-15 Cherrise incontinenc n d 0-22 15:24:00 Henley e 13:50: [id number] 00 Elimination urinary Eliminatio Resolve 2017-052018-03-15 Cherrise urgency n d 0-22 15:24:00 Olya 13:50: [id number] 00 Elimination urinary Eliminatio Resolve 2017-052018-03-15 Cherrise frequency n d 0- 15:24:00 Henley 13:50: [id number] 00 Endo/Sen glucose Endo/Sen Resolve 2017-052018-03-22 Cherrise testing d 0- 15:29:00 Olya dependence 13:30: [id number] 00 Nutrition knowledge/s Nutrition Resolve 2017-052018-03-25 Cherrise kill d 05-18 14:35:00 Olya deficit: pt 11:30: [id number] 00 Elimination urinary Eliminatio Resolve 2017-052018-03-22 Cherrise frequency n d 05-18 15:29:00 Olya 11:30: [id number] 00 Pain frequent Pain Mgmt Resolve 2017-052018-06-14 Stephany pain d 05-25 14:43:00 Barber-Zos 14:35: h [id number] 00 Nutrition nutritional Nutrition Resolve 2017-052018-03-25 Stephany restriction d 05-25 14:35:00 Barber-Zos s 14:35: h [id number] 00 Elimination urinary Eliminatio Resolve 2017-052018-04-05 Stephany incontinenc n d 05-25 14:45:00 Thatcher-Zos e 14:35: h [id number] 00 Elimination urinary Eliminatio Resolve 2017-052018-04-05 Stephany frequency n d 05-25 14:45:00 Barber-Zos 14:35: h [id number] 00 Musculoskel requires Musculoske Unknown 2017-05 Stephany etal special letal 05-25 Thatcher-Zos transportat 14:35: h [id number] ion 00 Cardio hypertensio Cardiovasc Resolve 2017-052018-04-12 Cherrise n ular d - 13:46:00 Henley 12:00: [id number] 00 Endo/Sen glucose Endo/Sen Resolve 2017-052018-04-05 Cherrise tolerance d 05-27 14:45:00 Olya problem 12:00: [id number] 00 Elimination urinary Eliminatio Resolve 2017-052018-04-05 Cherrise urgency n d 06-01 14:45:00 Olya 12:45: [id number] 00 Elimination urinary Eliminatio Resolve 2017-052018-04-12 Cherrise urgency n d 06-08 13:46:00 Henley 10:55: [id number] 00 Elimination urinary Eliminatio Resolve 2017-052018-04-12 Cherrise frequency n d 06-08 13:46:00 Olya 10:55: [id number] 00 Endo/Sen glucose Endo/Sen Resolve 2017-052018-04-24 Cherrise tolerance d 06-16 15:19:00 Olya problem 12:20: [id number] 00 Elimination urinary Eliminatio Resolve 2017-052018-04-24 Cherrise frequency n d 06-16 15:19:00 Olya 12:20: [id number] 00 Cardio hypertensio Cardiovasc Resolve 2017-052018-04-24 Cherrise n ular d 2 15:19:00 Olya 10:35: [id number] 00 Elimination urinary Eliminatio Resolve 2017-052018-04-24 Cherrise urgency n d 2 15:19:00 Henley 10:35: [id number] 00 Elimination urinary Eliminatio Resolve 2017-052018-04-24 Stephany incontinenc n d 06-25 15:19:00 Barber-Zos e 15:19: h [id number] 00 Cardio hypertensio Cardiovasc Resolve 2017-052018-06-07 Cherrise n ular d 2-14 13:31:00 Henley 13:15: [id number] 00 Respiratory dyspnea Respirator Active 2017-05 Cherrise present y 2- Olya 13:15: [id number] 00 Respiratory CPAP Respirator Active 2017-05 Cherrise treatments y 2-14 Henley in home 13:15: [id number] 00 Respiratory smoker Respirator Resolve 2017-052018-06-03 Cherrise y d 2-14 14:08:00 Olya 13:15: [id number] 00 Elimination urinary Eliminatio Resolve 2017-052018-05-31 Cherrise urgency n d 2-14 14:21:00 Henley 13:15: [id number] 00 Elimination urinary Eliminatio Resolve 2017-052018-05-31 Cherrise frequency n d 2-14 14:21:00 Olya 13:15: [id number] 00 Elimination diarrhea Eliminatio Resolve 2017-052018-05-31 Cherrise n d 2-14 14:21:00 Henley 13:15: [id number] 00 Endo/Sen glucose Endo/Sen Resolve 2017-052018-05-31 Cherrise tolerance d 07-07 14:21:00 Olya problem 13:10: [id number] 00 Infection s/s of Infection Active Stephany infection 05-31 Barber-Zos 14:21: h [id number] 00 Respiratory smoker Respirator Resolve 2018-09-13 Cherrise y d 06-05 13:20:00 Henley 13:35: [id number] 00 Endo/Sen glucose Endo/Sen Resolve 2018-06-21 Cherrise tolerance d 06-05 10:26:00 Olya problem 13:35: [id number] 00 Elimination urinary Eliminatio Resolve 2018-06-14 Cherrise urgency n d 06-05 14:43:00 Henley 13:35: [id number] 00 Elimination urinary Eliminatio Resolve 2018-06-14 Cherrise frequency n d 06-05 14:43:00 Olya 13:35: [id number] 00 Cardio hypertensio Cardiovasc Resolve 2018-09-13 Cherrise n ular d 06-10 13:20:00 Henley 11:00: [id number] 00 Elimination urinary Eliminatio Resolve 2018-06-21 Cherrise urgency n d 06-19 10:26:00 Henley 10:50: [id number] 00 Elimination urinary Eliminatio Resolve 2018-06-21 Stephany frequency n d 06-21 10:26:00 Thatcher-Zos 10:26: h [id number] 00 Endo/Sen glucose Endo/Sen Resolve 2018-06-28 Cherrise tolerance d 06-24 14:32:00 Henley problem 11:25: [id number] 00 Elimination urinary Eliminatio Resolve 2018-06-28 Cherrise urgency n d 2-11 14:32:00 Henley 11:25: [id number] 00 Elimination urinary Eliminatio Resolve 2018-06-28 Cherrise frequency n d 2-13 14:32:00 Henley 11:50: [id number] 00 Endo/Sen glucose Endo/Sen Resolve 2018-07-12 Cherrise tolerance d 2- 13:43:00 Olya problem 11:50: [id number] 00 Elimination urinary Eliminatio Resolve 2018-07-12 Cherrise urgency n d 2 13:43:00 Olya 12:30: [id number] 00 Neuro depressive Neuro/Emot Resolve 2018-11-11 Cherrise feelings ion d 2 14:00:00 Olya present 12:30: [id number] 00 Elimination urinary Eliminatio Resolve 2018-07-12 Cherrise frequency n d 2 13:43:00 Olya 10:45: [id number] 00 Elimination urinary Eliminatio Resolve 2018-07-24 Stephany frequency n d 3-06 12:48:00 Barber-Zos 11:53: h [id number] 00 Endo/Sen glucose Endo/Sen Resolve 2018-09-18 Cherrise tolerance d 3-11 10:59:00 Henley problem 10:15: [id number] 00 Elimination urinary Eliminatio Resolve 2018-07-24 Cherrise urgency n d 3-11 12:48:00 Olya 10:15: [id number] 00 Pain frequent Pain Mgmt Resolve 2018-07-24 Stephany pain d 3-13 12:48:00 Barber-Zos 12:48: h [id number] 00 Elimination urinary Eliminatio Resolve 2018-09-13 Cherrise urgency n d 3-15 13:20:00 Olya 12:40: [id number] 00 Musculoskel requires Musculoske Unknown Cherrise etal human letal 07-26 Henley assist to 12:40: [id number] leave home 00 Respiratory lung sounds Respirator Resolve 2018-09-13 Christel deficit y d 3- 13:20:00 Jeb 15:19: [id number] 00 Safety fire risk Safety Resolve 2018-10-25 Christel present d 08-09 15:10:00 Jeb 15:19: [id number] 00 Elimination urinary Eliminatio Resolve 2018-09-13 Cherrise frequency n d 08-19 13:20:00 Olya 12:50: [id number] 00 Integument surgical Integument Active Cherrise wound 09-04 Henley present 11:45: [id number] 00 Integument skin Integument Active Cherrise integrity 09-04 Henley risk 11:45: [id number] 00 Integument other wound Integument Active Cherrise present 09-04 Henley 11:45: [id number] 00 Nutrition knowledge/s Nutrition Active Cherrise kill 09-04 Olya deficit: pt 11:45: [id number] 00 Nutrition nutritional Nutrition Active Cherrise restriction 09-04 Olya s 11:45: [id number] 00 Musculoskel transfer Musculoske Resolve 2018-10-25 Cherrise etal assistance letal d 09-04 15:10:00 Henley required 11:45: [id number] 00 Musculoskel requires Musculoske Resolve 2018-10-25 Cherrise etal human letal d 09-04 15:10:00 Henley assist to 11:45: [id number] leave home 00 Elimination constipatio Eliminatio Resolve 2018-09-13 Cherrise n n d 09-09 13:20:00 Olya 14:10: [id number] 00 Pain frequent Pain Mgmt Resolve 2018-10-25 Madelaine pain d 09-18 15:10:00 Ingrahm 10:59: [id number] 00 Respiratory smoker Respirator Resolve 2018-10-25 Cherrise y d 09-23 15:10:00 Olya 11:50: [id number] 00 Elimination urinary Eliminatio Resolve 2018-10-25 Cherrise urgency n d 09-23 15:10:00 Henley 11:50: [id number] 00 Cardio hypertensio Cardiovasc Resolve 2018-11-11 Cherrise n ular d 5-29 14:00:00 Olya 11:20: [id number] 00 Endo/Sen glucose Endo/Sen Resolve 2018-10-25 Cherrise tolerance d 5-29 15:10:00 Henley problem 11:20: [id number] 00 Elimination urinary Eliminatio Resolve 2018-10-25 Conchita frequency n d 6-05 15:10:00 Shimon, 14:00: [id number] 00 Cardio edema Cardiovasc Resolve 2018-11-11 Cherrise ular d 6-10 14:00:00 Henley 11:00: [id number] 00 Safety risk for Safety Resolve 2018-11-11 Conchita hospitaliza d 6-17 14:00:00 daniel Robins 14:30: [id number] 00 Respiratory smoker Respirator Resolve 2018-11-11 Cherrise y d 6-19 14:00:00 Henley 10:25: [id number] 00 Endo/Sen glucose Endo/Sen Resolve 2018-11-11 Cherrise tolerance d 6-19 14:00:00 Olya problem 10:25: [id number] 00 Elimination urinary Eliminatio Resolve 2018-11-11 Cherrise urgency n d 6-19 14:00:00 Olya 10:25: [id number] 00 Elimination urinary Eliminatio Resolve 2018-11-11 Cherrise frequency n d 6-19 14:00:00 Olya 10:25: [id number] 00 Musculoskel requires Musculoske Resolve 2018-12-23 Cherrise etal human letal d 6- 11:00:00 Olya assist to 10:25: [id number] leave home 00 Musculoskel requires Musculoske Resolve 2018-12-23 Kerry etal special letal d 11-08 11:00:00 Maria Antonia transportat 18:30: [id number] ion 00 Safety fall risk Safety Resolve 2018-12-13 Cherrise factor d 7- 14:40:00 Olya present 14:45: [id number] 00 Neuro impaired Neuro/Emot Resolve 2018-2018-12-13 Madelaine decision-ma ion d 7-10 14:40:00 Jose Angel wilver 14:00: [id number] 00 Safety risk for Safety Resolve 2018-12-13 Madelaine hospitaliza d 7-10 14:40:00 Ingrabram tion 14:00: [id number] 00 Cardio edema Cardiovasc Resolve 2018-12-23 Cherrise ular d 7-15 11:00:00 Henley 11:00: [id number] 00 Respiratory smoker Respirator Resolve 2018-12-23 Cherrise y d 7-15 11:00:00 Henley 11:00: [id number] 00 Endo/Sen glucose Endo/Sen Resolve 2019-01-01 Cherrise tolerance d 7-15 15:00:00 Henley problem 11:00: [id number] 00 Elimination urinary Eliminatio Resolve 2018-12-13 Cherrise urgency n d 7-15 14:40:00 Olya 11:00: [id number] 00 Safety sanitation Safety Resolve 2018-12-13 Cherrise hazards d 7-15 14:40:00 Olya present 11:00: [id number] 00 Elimination urinary Eliminatio Resolve 2018-12-13 Cherrise frequency n d 7 14:40:00 Henley 11:15: [id number] 00 Neuro depressive Neuro/Emot Resolve 2019-01-17 Cherrise feelings ion d 7 15:25:00 Olya present 11:15: [id number] 00 Cardio hypertensio Cardiovasc Resolve 2018-12-23 Cherrise n ular d 12-04 11:00:00 Henley 14:40: [id number] 00 Musculoskel knowledge/s Musculoske Resolve 2018-12-23 Cherrise etal kill letal d 12-16 11:00:00 Olya deficit: cg 14:15: [id number] 00 Elimination urinary Eliminatio Resolve 2018-12-23 Cherrise urgency n d 12-20 11:00:00 Olya 10:10: [id number] 00 Neuro depressive Neuro/Emot Unknown Cherrise feelings ion 12-20 Henley present 10:10: [id number] 00 Neuro impaired Neuro/Emot Resolve 2019-01-17 Cherrise decision-ma ion d 12-20 15:25:00 Olya wilver 10:10: [id number] 00 Safety risk for Safety Resolve 2018-12-23 Cherrise hospitaliza d 12-20 11:00:00 Olya tion 10:10: [id number] 00 Sensory impaired Sensory Resolve 2019-01-17 Madelaine verbal d 12-23 15:25:00 Ingrahm communicati 11:00: [id number] on 00 Cardio hypertensio Cardiovasc Resolve 2019-01-01 Cherrise n ular d 8 15:00:00 Olya 12:00: [id number] 00 Respiratory smoker Respirator Resolve 2019-01-01 Cherrise y d 8 15:00:00 Henley 12:00: [id number] 00 Elimination urinary Eliminatio Resolve 2019-01-01 Cherrise urgency n d 8 15:00:00 Olya 12:00: [id number] 00 Neuro anxiety Neuro/Emot Resolve 2019-01-17 Cherrise present ion d 12-25 15:25:00 Henley 12:00: [id number] 00 Safety risk for Safety Resolve 2019-01-01 Gigie hospitaliza d 8- 15:00:00 Olya tion 12:00: [id number] 00 Musculoskel requires Musculoske Unknown Cherrise etal human letal 12-25 Olya assist to 12:00: [id number] leave home 00 Respiratory smoker Respirator Resolve 2019-01-17 Cherrise y d 8 15:25:00 Henley 11:45: [id number] 00 Elimination urinary Eliminatio Resolve 2019-01-17 Cherrise urgency n d 8 15:25:00 Henley 11:45: [id number] 00 Safety fall risk Safety Resolve 2019-01-06 Cherrise factor d 01-03 12:25:00 Olya present 11:45: [id number] 00 Safety risk for Safety Resolve 2019-02-12 Cherrise hospitaliza d 01-03 15:15:00 Henley tion 11:45: [id number] 00 Neuro memory Neuro/Emot Resolve 2019-03-31 Cherrise deficit ion d 01-13 15:30:00 Olya needing 11:20: [id number] supervision 00 Elimination urinary Eliminatio Resolve 2019-01-17 Madelaine incontinenc n d 01-17 15:25:00 Ingrahm e 15:25: [id number] 00 Safety fall risk Safety Resolve 2019-01-17 Columba Alan factor d 01-17 15:25:00 Rashid present 15:25: [id number] 00 Cardio hypertensio Cardiovasc Resolve 2019-01-24 Narciso n mary d 01-20 09:00:00 Henley 11:15: [id number] 00 Safety sanitation Safety Resolve 2019-02-12 Cherrise hazards d 01-20 15:15:00 Henley present 11:15: [id number] 00 Respiratory smoker Respirator Resolve 2019-01-24 Madelaine y d 01-24 09:00:00 Ingrahm 09:00: [id number] 00 Musculoskel transfer Musculoske Active Cherrise etal assistance letal 01-29 Olya required 13:25: [id number] 00 Musculoskel requires Musculoske Active Cherrise etal human letal 01-29 Olya assist to 13:25: [id number] leave home 00 Musculoskel requires Musculoske Active Cherrise etal special letal 01-29 Olya transportat 13:25: [id number] ion 00 Respiratory smoker Respirator Resolve 2019-02-05 Cherrise y d 02-03 15:10:00 Henley 10:00: [id number] 00 Elimination urinary Eliminatio Resolve 2019-02-12 Cherrise urgency n d 02-03 15:15:00 Olya 10:00: [id number] 00 Safety fall risk Safety Resolve 2019-02-12 Cherrise factor d 9-27 15:15:00 Olya present 11:15: [id number] 00 Cardio hypertensio Cardiovasc Resolve 2018-052019-02-19 Chershawne n ular d 0-04 14:00:00 Olya 11:50: [id number] 00 Respiratory smoker Respirator Resolve 2018-052019-02-19 Cherrise y d 0-07 14:00:00 Olya 11:30: [id number] 00 Safety risk for Safety Resolve 2018-052019-03-12 Madelaine hospitaliza d 0-09 15:00:00 Ingrahm tion 14:00: [id number] 00 Cardio hypertensio Cardiovasc Resolve 2018-052019-03-19 Cherrise n ular d 0-18 14:00:00 Henley 12:30: [id number] 00 Respiratory smoker Respirator Resolve 2018-052019-03-12 Cherrise y d 0-18 15:00:00 Henley 12:30: [id number] 00 Elimination urinary Eliminatio Resolve 2018-052019-03-12 Cherrise urgency n d 0-18 15:00:00 Henley 12:30: [id number] 00 Respiratory smoker Respirator Resolve 2018-052019-03-19 Cherrise y d 1-04 14:00:00 Henley 09:40: [id number] 00 Elimination urinary Eliminatio Resolve 2018-052019-03-19 Cherrise urgency n d 1-04 14:00:00 Olya 09:40: [id number] 00 Safety risk for Safety Resolve 2018-052019-03-31 Cherrise hospitaliza d 1-04 15:30:00 Henley tion 09:40: [id number] 00 Safety fall risk Safety Resolve 2018-052019-03-31 Madelaine factor d 1-06 15:30:00 Ingrahm present 14:00: [id number] 00 Elimination urinary Eliminatio Resolve 2018-052019-03-31 Madelaine incontinenc n d 1-13 15:30:00 Ingrahm e 15:30: [id number] 00 Respiratory smoker Respirator Resolve 2018-052019-03-31 Cherrise y d 1-15 15:30:00 Olya 10:55: [id number] 00 Elimination urinary Eliminatio Resolve 2018-052019-03-31 Cherrise urgency n d 1-15 15:30:00 Olya 10:55: [id number] 00 Neuro depressive Neuro/Emot Resolve 2018-052019-03-31 Cherrise feelings ion d 05-28 15:30:00 Henley present 10:55: [id number] 00 Neuro impaired Neuro/Emot Resolve 2018-052019-03-31 Cherrise decision-ma ion d 05-28 15:30:00 Henley wilver 10:55: [id number] 00 Safety sanitation Safety Resolve 2018-052019-03-31 Cherrise hazards d 05-28 15:30:00 Henley present 10:55: [id number] 00 Cardio hypertensio Cardiovasc Active 2018-05 Cherrise n ular 06-07 Olya 11:30: [id number] 00 Respiratory smoker Respirator Active 2018-05 Cherrise y 06-16 Henley 14:05: [id number] 00 Elimination urinary Eliminatio Resolve 2018-052019-04-18 Cherrise incontinenc n d - 14:30:00 Henley e 14:05: [id number] 00 Elimination urinary Eliminatio Resolve 2018-052019-04-18 Cherrise urgency n d - 14:30:00 Henley 14:05: [id number] 00 Neuro depressive Neuro/Emot Active 2018-05 Cherrise feelings ion - Henley present 14:05: [id number] 00 Neuro impaired Neuro/Emot Active 2018-05 Cherrise decision-ma ion - Olya wilver 14:05: [id number] 00 Cardio edema Cardiovasc Active 2018-05 Cherrise ular 06-26 Olya 11:50: [id number] 00 Elimination urinary Eliminatio Active 2018-05 Cherrise urgency n - Olya 12:10: [id number] 00 Allergies, Adverse Reactions, Alerts Allergy Allergy [...] n 20 mg n 20 mg 01-26 MD,[place] tablet tablet furosemide furosemide 2017- No [place] Unknown Unknown 20 mg 20 mg 01-26 ,Kyle tablet tablet losartan losartan 2017- No [place] Unknown Unknown 100 mg 100 mg 01-26 MD,[place] tablet tablet metFORMIN metFORMIN No [place] Unknown Unknown 1,000 mg 1,000 mg 01-26 ,[place] tablet tablet Dulera 200 Dulera 200 2018- No [place] Unknown Unknown mcg-5 mcg-5 01-2616 Kyle COVARRUBIAS mcg/actuati mcg/actuati on HFA on HFA aerosol aerosol inhaler inhaler amLODIPine amLODIPine 2017- No [place] Unknown Unknown 10 mg 10 mg 01-26 ,[place] tablet tablet lisinopril lisinopril 2017-05- No [place] Unknown Unknown 20 mg 20 mg - ,[place] tablet tablet oxyCODONE 5 oxyCODONE 5 No Rafita Unknown Unknown mg tablet mg tablet 06-20 Simona COVARRUBIAS lisinopril lisinopril 2018- No Rafita Unknown Unknown 20 mg 20 mg 06-28- ,[place] tablet tablet lisinopril lisinopril No Rafita Unknown Unknown 30 mg 30 mg -15 ,[facility] tablet tablet hydroCHLORO hydroCHLORO No Rafita Unknown [...]
--- OUTSIDE RECORDS SUMMARY | 2019-05-09 12:28 | XMS REPORT ---
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 01-26 Ingrm infct infct [id number] causing causing diseases diseases classd classd elswhr elswhr Type 2 Type 2 Diagnosis Active Madelaine diabetes diabetes 05-14 [facility] mellitus mellitus [id number] with with diabetic diabetic neuropathy, neuropathy, unsp unsp Essential Essential Diagnosis Active Madelaine (primary) (primary) 05-14 [facility] hypertensio hypertensio [id number] n n Chronic Chronic Diagnosis Active Madelaine obstructive obstructive 05-14 [facility] pulmonary pulmonary [id number] disease, disease, unspecified unspecified G47.33 G47.33 Diagnosis Active Madelaine 05-14 Ingrahm [id number] Pain frequent Pain Mgmt Resolve 2018-06-14 Darya pain d 01-26 14:43:00 (Tejas) 09:45: Analilia 00 [id number] Cardio edema Cardiovasc Resolve 2018-02-18 Darya ular d 01-26 13:35:00 (Tejas) 09:45: Analilia 00 [id number] Cardio knowledge/s Cardiovasc Resolve 2018-02-18 Darya kill ular d 01-26 13:35:00 (Tejas) deficit: pt 09:45: Analilia 00 [id number] Respiratory dyspnea Respirator Resolve 2018-04-24 Darya present y d 01-26 15:19:00 (Tejas) 09:45: Analilia 00 [id number] Respiratory CPAP Respirator Resolve 2018-04-24 Quality treatments y d 9-15 15:19:00 Realtime7 in home 09:45: 00 Endo/Sen diabetic Endo/Sen Resolve 2018-02-25 Darya foot care d 9-15 14:00:00 (Tejas) 09:45: Billingsley [id number] Integument surgical Integument Resolve 2018-03-25 Darya wound d 9-15 14:35:00 (Tejas) present 09:45: Billingsley [id number] Integument skin Integument Resolve 2018-03-25 Darya integrity d 9-15 14:35:00 (Tejas) risk 09:45: Billingsley [id number] Integument other wound Integument Resolve 2018-03-25 Quality present d 9-15 14:35:00 Realtime7 09:45: 00 Nutrition nutritional Nutrition Resolve 2018-03-15 Darya restriction d 9-15 15:24:00 (Tejas) s 09:45: Billingsley [id number] Elimination urinary Eliminatio Resolve 2018-03-01 Darya incontinenc n d 9-15 09:00:00 (Tejas) e 09:45: Billingsley 00 [id number] Neuro confusion Neuro/Emot Resolve 2018-11-11 Darya present ion d 9-15 14:00:00 (Tejas) 09:45: Billingsley 00 [id number] Neuro anxiety Neuro/Emot Resolve 2018-11-11 Darya present ion d 9-15 14:00:00 (Tejas) 09:45: Billingsley [id number] Activity ADL Activity Resolve 2018-11-11 Darya assistance d 9-15 14:00:00 (Tejas) required 09:45: Billingsley [id number] Safety sanitation Safety Resolve 2018-10-25 Darya hazards d 9-15 15:10:00 (Tejas) present 09:45: Billingsley [id number] Safety fall risk Safety Resolve 2018-10-25 Darya factor d 9-15 15:10:00 (Tejas) present 09:45: Billingsley [id number] Safety risk for Safety Resolve 2018-10-25 Darya hospitaliza d 9-15 15:10:00 (Tejas) tion 09:45: Billingsley 00 [id number] Safety can be left Safety Resolve 2018-11-11 Darya alone for d 9-15 14:00:00 (Tejas) only short 09:45: Billingsley periods 00 [id number] Medication oral med Meds Resolve 2018-03-15 Darya assistance d 9-15 15:24:00 (Tejas) required 09:45: Billingsley [id number] Medication knowledge/s Meds Resolve 2018-03-15 Darya kill d 9-15 15:24:00 (Tejas) deficit: pt 09:45: Billingsley [id number] Medication potential Meds Resolve 2018-03-15 Darya clinically d 9-15 15:24:00 (Tejas) significant 09:45: Billingsley medication [id number] issue Musculoskel transfer Musculoske Unknown Quality etal assistance letal 01-26 Realtime7 required 09:45: 00 Sensory impaired Sensory Resolve 2018-11-11 Quality verbal d 917 14:00:00 Realtime7 communicati 14:00: on 24 Endo/Sen glucose Endo/Sen Resolve 2018-02-25 Cherrise tolerance d 01-31 14:00:00 Olya problem 13:25: [id number] 00 Nutrition knowledge/s Nutrition Resolve 2018-03-15 Cherrise kill d 01-31 15:24:00 Olya deficit: pt 13:25: [id number] 00 Elimination urinary Eliminatio Resolve 2018-03-01 Cherrise urgency n d 01-31 09:00:00 [place] 13:25: [id number] 00 Elimination urinary Eliminatio Resolve 2018-03-01 Cherrise frequency n d 01-31 09:00:00 Olya 13:25: [id number] 00 Neuro impaired Neuro/Emot Resolve 2018-11-11 Cherrise decision-ma ion d 01-31 14:00:00 [place] wilver 13:25: [id number] 00 Musculoskel requires Musculoske Unknown Cherrise etal human letal 9-20 [place] assist to 13:25: [id number] leave home 00 Cardio hypertensio Cardiovasc Resolve 2018-02-18 Cherrise n ular d 9-24 13:35:00 [place] 13:05: [id number] 00 Musculoskel requires Musculoske Unknown 2017-05 Cherrise etal human letal 0-05 [place] assist to 13:40: [id number] leave home 00 Cardio hypertensio Cardiovasc Resolve 2017-052018-03-25 Cherrise n ular d 0-12 14:35:00 Olya 12:45: [id number] 00 Respiratory smoker Respirator Resolve 2017-052018-04-24 Cherrise y d 0-12 15:19:00 [place] 12:45: [id number] 00 Musculoskel transfer Musculoske Unknown 2017-05 Cherrise etal assistance letal 0-12 [place] required 12:45: [id number] 00 Endo/Sen glucose Endo/Sen Resolve 2017-052018-03-22 Cherrise tolerance d 0-22 15:29:00 [place] problem 13:50: [id number] 00 Elimination urinary Eliminatio Resolve 2017-052018-03-15 Cherrise incontinenc n d 0-22 15:24:00 Olya e 13:50: [id number] 00 Elimination urinary Eliminatio Resolve 2017-052018-03-15 Cherrise urgency n d 0-22 15:24:00 Olya 13:50: [id number] 00 Elimination urinary Eliminatio Resolve 2017-052018-03-15 Cherrise frequency n d 0-22 15:24:00 [place] 13:50: [id number] 00 Endo/Sen glucose Endo/Sen Resolve 2017-052018-03-22 Cherrise testing d 0-29 15:29:00 Olya dependence 13:30: [id number] 00 Nutrition knowledge/s Nutrition Resolve 2017-052018-03-25 Cherrise kill d 1-05 14:35:00 Olya deficit: pt 11:30: [id number] 00 Elimination urinary Eliminatio Resolve 2017-052018-03-22 Cherrise frequency n d 1-05 15:29:00 Olya 11:30: [id number] 00 Pain frequent Pain Mgmt Resolve 2017-052018-06-14 Stephany pain d 05-25 14:43:00 [place] 14:35: h [id number] 00 Nutrition nutritional Nutrition Resolve 2017-052018-03-25 Stephany restriction d 05-25 14:35:00 [place] s 14:35: h [id number] 00 Elimination urinary Eliminatio Resolve 2017-052018-04-05 Stephany incontinenc n d 05-25 14:45:00 [place] e 14:35: h [id number] 00 Elimination urinary Eliminatio Resolve 2017-052018-04-05 Stephany frequency n d 05-25 14:45:00 [place] 14:35: h [id number] 00 Musculoskel requires Musculoske Unknown 2017-05 Stephany etal special letal 05-25 [place]-[facility] transportat 14:35: h [id number] ion 00 Cardio hypertensio Cardiovasc Resolve 2017-052018-04-12 Cherrise n ular d 05-27 13:46:00 [place] 12:00: [id number] 00 Endo/Sen glucose Endo/Sen Resolve 2017-052018-04-05 Cherrise tolerance d 05-27 14:45:00 Olya problem 12:00: [id number] 00 Elimination urinary Eliminatio Resolve 2017-052018-04-05 Cherrise urgency n d 06-01 14:45:00 [place] 12:45: [id number] 00 Elimination urinary Eliminatio Resolve 2017-052018-04-12 Cherrise urgency n d 06-08 13:46:00 Olya 10:55: [id number] 00 Elimination urinary Eliminatio Resolve 2017-052018-04-12 Cherrise frequency n d 06-08 13:46:00 [place] 10:55: [id number] 00 Endo/Sen glucose Endo/Sen Resolve 2017-052018-04-24 Cherrise tolerance d 06-16 15:19:00 [place] problem 12:20: [id number] 00 Elimination urinary Eliminatio Resolve 2017-052018-04-24 Cherrise frequency n d 06-16 15:19:00 [place] 12:20: [id number] 00 Cardio hypertensio Cardiovasc Resolve 2017-052018-04-24 Cherrise n ular d 2- 15:19:00 [place] 10:35: [id number] 00 Elimination urinary Eliminatio Resolve 2017-052018-04-24 Cherrise urgency n d 2 15:19:00 Olya 10:35: [id number] 00 Elimination urinary Eliminatio Resolve 2017-052018-04-24 Stephany incontinenc n d 06-25 15:19:00 [place] e 15:19: h [id number] 00 Cardio hypertensio Cardiovasc Resolve 2017-052018-06-07 Cherrise n ular d 2-14 13:31:00 [place] 13:15: [id number] 00 Respiratory dyspnea Respirator Active 2017-05 Cherrise present y 06-27 [place] 13:15: [id number] 00 Respiratory CPAP Respirator Active 2017-05 Cherrise treatments y 06-27 Olya in home 13:15: [id number] 00 Respiratory smoker Respirator Resolve 2017-052018-06-03 Cherrise y d 2-14 14:08:00 [place] 13:15: [id number] 00 Elimination urinary Eliminatio Resolve 2017-052018-05-31 Cherrise urgency n d 2-14 14:21:00 Olya 13:15: [id number] 00 Elimination urinary Eliminatio Resolve 2017-052018-05-31 Cherrise frequency n d 2-14 14:21:00 Loya 13:15: [id number] 00 Elimination diarrhea Eliminatio Resolve 2017-052018-05-31 Cherrise n d 2-14 14:21:00 [place] 13:15: [id number] 00 Endo/Sen glucose Endo/Sen Resolve 2017-052018-05-31 Cherrise tolerance d 2-24 14:21:00 [place] problem 13:10: [id number] 00 Infection s/s of Infection Active Stephany infection 05-31 [place] 14:21: h [id number] 00 Respiratory smoker Respirator Resolve 2018-09-13 Cherrise y d 06-05 13:20:00 Olya 13:35: [id number] 00 Endo/Sen glucose Endo/Sen Resolve 2018-06-21 Cherrise tolerance d 06-05 10:26:00 [place] problem 13:35: [id number] 00 Elimination urinary Eliminatio Resolve 2018-06-14 Cherrise urgency n d 06-05 14:43:00 [place] 13:35: [id number] 00 Elimination urinary Eliminatio Resolve 2018-06-14 Cherrise frequency n d 06-05 14:43:00 [place] 13:35: [id number] 00 Cardio hypertensio Cardiovasc Resolve 2018-09-13 Cherrise n ular d 06-10 13:20:00 Olya 11:00: [id number] 00 Elimination urinary Eliminatio Resolve 2018-06-21 Cherrise urgency n d 06-19 10:26:00 [place] 10:50: [id number] 00 Elimination urinary Eliminatio Resolve 2018-06-21 Stephany frequency n d 06-21 10:26:00 [place] 10:26: h [id number] 00 Endo/Sen glucose Endo/Sen Resolve 2018-06-28 Cherrise tolerance d 2- 14:32:00 [place] problem 11:25: [id number] 00 Elimination urinary Eliminatio Resolve 2018-06-28 Cherrise urgency n d 2- 14:32:00 Olya 11:25: [id number] 00 Elimination urinary Eliminatio Resolve 2018-06-28 Cherrise frequency n d 2- 14:32:00 [place] 11:50: [id number] 00 Endo/Sen glucose Endo/Sen Resolve 2018-07-12 Cherrise tolerance d 07-03 13:43:00 [place] problem 11:50: [id number] 00 Elimination urinary Eliminatio Resolve 2018-07-12 Cherrise urgency n d 07-08 13:43:00 [place] 12:30: [id number] 00 Neuro depressive Neuro/Emot Resolve 2018-11-11 Cherrise feelings ion d 2 14:00:00 Olya present 12:30: [id number] 00 Elimination urinary Eliminatio Resolve 2018-07-12 Cherrise frequency n d 2-27 13:43:00 Olya 10:45: [id number] 00 Elimination urinary Eliminatio Resolve 2018-07-24 Stephany frequency n d 3-06 12:48:00 [place] 11:53: h [id number] 00 Endo/Sen glucose Endo/Sen Resolve 2018-09-18 Cherrise tolerance d 3-11 10:59:00 Olya problem 10:15: [id number] 00 Elimination urinary Eliminatio Resolve 2018-07-24 Cherrise urgency n d 3-11 12:48:00 Olya 10:15: [id number] 00 Pain frequent Pain Mgmt Resolve 2018-07-24 Stephany pain d 3-13 12:48:00 [place] 12:48: h [id number] 00 Elimination urinary Eliminatio Resolve 2018-09-13 Cherrise urgency n d 3-15 13:20:00 Olya 12:40: [id number] 00 Musculoskel requires Musculoske Unknown Cherrise etal human letal 3-15 Olya assist to 12:40: [id number] leave home 00 Respiratory lung sounds Respirator Resolve 2018-09-13 Christel deficit y d - 13:20:00 Jeb 15:19: [id number] 00 Safety fire risk Safety Resolve 2018-10-25 Christel present d 3 15:10:00 Jeb 15:19: [id number] 00 Elimination urinary Eliminatio Resolve 2018-09-13 Cherrise frequency n d 4-08 13:20:00 [place] 12:50: [id number] 00 Integument surgical Integument Active Cherrise wound 4-24 Olya present 11:45: [id number] 00 Integument skin Integument Active Cherrise integrity 4-24 Olya risk 11:45: [id number] 00 Integument other wound Integument Active Cherrise present 4- [place] 11:45: [id number] 00 Nutrition knowledge/s Nutrition Active Cherrise kill 09-04 [place] deficit: pt 11:45: [id number] 00 Nutrition nutritional Nutrition Active Cherrise restriction 09-04 Olya s 11:45: [id number] 00 Musculoskel transfer Musculoske Resolve 2018-10-25 Cherrise etal assistance letal d 09-04 15:10:00 Olya required 11:45: [id number] 00 Musculoskel requires Musculoske Resolve 2018-10-25 Cherrise etal human letal d 09-04 15:10:00 Olya assist to 11:45: [id number] leave home 00 Elimination constipatio Eliminatio Resolve 2018-09-13 Cherrise n n d 09-09 13:20:00 [place] 14:10: [id number] 00 Pain frequent Pain Mgmt Resolve 2018-10-25 Madelaine pain d 08 [facility] [id number] 00 Respiratory smoker Respirator Resolve 2018-10-25 Cherrise y d - 15:10:00 [place] 11:50: [id number] 00 Elimination urinary Eliminatio Resolve 2018-10-25 Cherrise urgency n d - 15:10:00 Olya 11:50: [id number] 00 Cardio hypertensio Cardiovasc Resolve 2018-11-11 Cherrise n ular d 10-09 14:00:00 Olya 11:20: [id number] 00 Endo/Sen glucose Endo/Sen Resolve 2018-10-25 Cherrise tolerance d 10-09 15:10:00 [place] problem 11:20: [id number] 00 Elimination urinary Eliminatio Resolve 2018-10-25 Conchita frequency n d 10-16 15:10:00 Shimon, 14:00: [id number] 00 Cardio edema Cardiovasc Resolve 2018-11-11 Cherrise ular d 6- 14:00:00 Olya 11:00: [id number] 00 Safety risk for Safety Resolve 2018-11-01 Conchita hospitaliza d 6-17 14:00:00 daniel Robins 14:30: [id number] 00 Respiratory smoker Respirator Resolve 2018-11-11 Cherrise y d 6-19 14:00:00 Olya 10:25: [id number] 00 Endo/Sen glucose Endo/Sen Resolve 2018-11-11 Cherrise tolerance d 6-19 14:00:00 Olya problem 10:25: [id number] 00 Elimination urinary Eliminatio Resolve 2018-11-11 Cherrise urgency n d 6-19 14:00:00 Olya 10:25: [id number] 00 Elimination urinary Eliminatio Resolve 2018-11-11 Cherrise frequency n d 6-19 14:00:00 Olya 10:25: [id number] 00 Musculoskel requires Musculoske Resolve 2018-12-23 Cherrise etal human letal d 6- 11:00:00 Olya assist to 10:25: [id number] leave home 00 Musculoskel requires Musculoske Resolve 2018-12-23 Kerry etal special letal d 6- 11:00:00 Maria Antonia transportat 18:30: [id number] ion 00 Safety fall risk Safety Resolve 2018-12-13 Cherrise factor d 7- 14:40:00 [place] present 14:45: [id number] 00 Neuro impaired Neuro/Emot Resolve 2018-12-13 Madelaine mullen ion d 7- 14:40:00 Jose Angel pettit 14:00: [id number] 00 Safety risk for Safety Resolve 2018-12-13 Madelaine garciaiza d 7-10 14:40:00 Ingrahm tion 14:00: [id number] 00 Cardio edema Cardiovasc Resolve 2018-12-23 Cherrise ular d 7-15 11:00:00 Olya 11:00: [id number] 00 Respiratory smoker Respirator Resolve 2018-12-23 Cherrise y d 7-15 11:00:00 [place] 11:00: [id number] 00 Endo/Sen glucose Endo/Sen Resolve 2019-01-01 Cherrise tolerance d 7-15 15:00:00 [place] problem 11:00: [id number] 00 Elimination urinary Eliminatio Resolve 2018-12-13 Cherrise urgency n d 7-15 14:40:00 Olya 11:00: [id number] 00 Safety sanitation Safety Resolve 2018-12-13 Cherrise hazards d 7-15 14:40:00 Olya present 11:00: [id number] 00 Elimination urinary Eliminatio Resolve 2018-12-13 Cherrise frequency n d 7 14:40:00 [place] 11:15: [id number] 00 Neuro depressive Neuro/Emot Resolve 2019-01-17 Cherrise feelings ion d 12-02 15:25:00 Olya present 11:15: [id number] 00 Cardio hypertensio Cardiovasc Resolve 2018-12-23 Cherrise n ular d 12-04 11:00:00 [place] 14:40: [id number] 00 Musculoskel knowledge/s Musculoske Resolve 2018-12-23 Cherrise etal kill letal d 12-16 11:00:00 Olya deficit: cg 14:15: [id number] 00 Elimination urinary Eliminatio Resolve 2018-12-23 Cherrise urgency n d 12-20 11:00:00 Olya 10:10: [id number] 00 Neuro depressive Neuro/Emot Unknown Cherrise feelings ion 12-20 [place] present 10:10: [id number] 00 Neuro impaired Neuro/Emot Resolve 2019-01-17 Cherrise decision-ma ion d 12-20 15:25:00 Olya wilver 10:10: [id number] 00 Safety risk for Safety Resolve 2018-12-23 Cherrise hospitaliza d 12-20 11:00:00 [place] tion 10:10: [id number] 00 Sensory impaired Sensory Resolve 2019-01-17 Madelaine verbal d 12-23 15:25:00 Ingrahm communicati 11:00: [id number] 00 Cardio hypertensio Cardiovasc Resolve 2019-01-01 Cherrise n ular d 8-14 15:00:00 [place] 12:00: [id number] 00 Respiratory smoker Respirator Resolve 2019-01-01 Cherrise y d 8-14 15:00:00 Olya 12:00: [id number] 00 Elimination urinary Eliminatio Resolve 2019-01-01 Cherrise urgency n d 8-14 15:00:00 Olya 12:00: [id number] 00 Neuro anxiety Neuro/Emot Resolve 2019-01-17 Cherrise present ion d 8-14 15:25:00 [place] 12:00: [id number] 00 Safety risk for Safety Resolve 2019-01-01 Cherrise hospitaliza d 8-14 15:00:00 [place] tion 12:00: [id number] 00 Musculoskel requires Musculoske Unknown Cherrise etal human letal 12-25 [place] assist to 12:00: [id number] leave home 00 Respiratory smoker Respirator Resolve 2019-01-17 Cherrise y d 01-03 15:25:00 Olya 11:45: [id number] 00 Elimination urinary Eliminatio Resolve 2019-01-17 Cherrise urgency n d 01-03 15:25:00 Olya 11:45: [id number] 00 Safety fall risk Safety Resolve 2019-01-06 Cherrise factor d 8 12:25:00 Olya present 11:45: [id number] 00 Safety risk for Safety Resolve 2019-02-12 Cherrise hospitaliza d 01-03 15:15:00 [place] tion 11:45: [id number] 00 Neuro memory Neuro/Emot Resolve 2019-03-31 Cherrise deficit ion d 01-13 15:30:00 Olya needing 11:20: [id number] supervision 00 Elimination urinary Eliminatio Resolve 2019-01-17 Madelaine incontinenc n d 01-17 15:25:00 Ingrahm e 15:25: [id number] 00 Safety fall risk Safety Resolve 2019-01-17 Desiree factor d 9-06 15:25:00 Rashid present 15:25: [id number] 00 Cardio hypertensio Cardiovasc Resolve 2019-01-24 Narciso aguilar ular d 01-20 09:00:00 [place] 11:15: [id number] 00 Safety sanitation Safety Resolve 2019-02-12 Cherrise hazards d 01-20 15:15:00 [place] present 11:15: [id number] 00 Respiratory smoker Respirator Resolve 2019-01-24 Madelaine y d 01-24 09:00:00 Ingrahm 09:00: [id number] 00 Musculoskel transfer Musculoske Active Cherrise etal assistance letal 01-29 [place] required 13:25: [id number] 00 Musculoskel requires Musculoske Active Cherrise etal human letal 01-29 Olya assist to 13:25: [id number] leave home 00 Musculoskel requires Musculoske Active Cherrise etal special letal 01-29 Olya transportat 13:25: [id number] ion 00 Respiratory smoker Respirator Resolve 2019-02-05 Cherrise y d 02-03 15:10:00 Olya 10:00: [id number] 00 Elimination urinary Eliminatio Resolve 2019-02-12 Cherrise urgency n d 02-03 15:15:00 Olya 10:00: [id number] 00 Safety fall risk Safety Resolve 2019-02-12 Cherrise factor d 02-07 15:15:00 [place] present 11:15: [id number] 00 Cardio hypertensio Cardiovasc Resolve 2018-052019-02-19 Narciso hernandez d 0-04 14:00:00 Olya 11:50: [id number] 00 Respiratory smoker Respirator Resolve 2018-052019-02-19 Gigie y d 0-07 14:00:00 [place] 11:30: [id number] 00 Safety risk for Safety Resolve 2018-052019-03-12 Madelaine landon d 009 15:00:00 Ingrahm tion 14:00: [id number] 00 Cardio hypertensio Cardiovasc Resolve 2018-052019-03-19 Cherrise n ular d 0-18 14:00:00 Olya 12:30: [id number] 00 Respiratory smoker Respirator Resolve 2018-052019-03-12 Cherrise y d 0-18 15:00:00 [place] 12:30: [id number] 00 Elimination urinary Eliminatio Resolve 2018-052019-03-12 Cherrise urgency n d 0-18 15:00:00 Olya 12:30: [id number] 00 Respiratory smoker Respirator Resolve 2018-052019-03-19 Cherrise y d 1-04 14:00:00 Olya 09:40: [id number] 00 Elimination urinary Eliminatio Resolve 2018-052019-03-19 Cherrise urgency n d 1-04 14:00:00 [place] 09:40: [id number] 00 Safety risk for Safety Resolve 2018-052019-03-31 Cherrise hospitaliza d 1-04 15:30:00 [place] tion 09:40: [id number] 00 Safety fall risk Safety Resolve 2018-052019-03-31 Madelaine factor d 1-06 15:30:00 Ingrahm present 14:00: [id number] 00 Elimination urinary Eliminatio Resolve 2018-052019-03-31 Madelaine incontinenc n d 1-13 15:30:00 Ingrahm e 15:30: [id number] 00 Respiratory smoker Respirator Resolve 2018-052019-03-31 Cherrise y d 1-15 15:30:00 [place] 10:55: [id number] 00 Elimination urinary Eliminatio Resolve 2018-052019-03-31 Cherrise urgency n d 1-15 15:30:00 [place] 10:55: [id number] 00 Neuro depressive Neuro/Emot Resolve 2018-052019-03-31 Cherrise feelings ion d 115 15:30:00 [place] present 10:55: [id number] 00 Neuro impaired Neuro/Emot Resolve 2018-052019-03-31 Cherrise decision-ma ion d 115 15:30:00 Olya wilver 10:55: [id number] 00 Safety sanitation Safety Resolve 2018-052019-03-31 Cherrise hazards d 1-15 15:30:00 Olya present 10:55: [id number] 00 Cardio hypertensio Cardiovasc Active 2018-05 Cherrise n ular 06-07 Olya 11:30: [id number] 00 Respiratory smoker Respirator Active 2018-05 Cherrise y 06-16 Olya 14:05: [id number] 00 Elimination urinary Eliminatio Active 2018-05 Cherrise incontinenc n 06-16 Loya e 14:05: [id number] 00 Elimination urinary Eliminatio Active 2018-05 Cherrise urgency n 06-16 Olya 14:05: [id number] 00 Neuro depressive Neuro/Emot Active 2018-05 Cherrise feelings ion 06-16 [place] present 14:05: [id number] 00 Neuro impaired Neuro/Emot Active 2018-05 Cherrise decision-ma ion 06-16 [place] wilver 14:05: [id number] 00 Allergies, Adverse Reactions, Alerts Allergy Allergy [...] Unknown Unknown mg tablet mg tablet 01-26 Kyle COVARRUBIAS atorvastati atorvastati No [place] Unknown Unknown n 20 mg n 20 mg 01-26 ,Kyle tablet tablet furosemide furosemide 2017- No [place] Unknown Unknown 20 mg 20 mg 01-26 ,[place] tablet tablet losartan losartan 2017- No [place] Unknown Unknown 100 mg 100 mg 01-26 ,Kyle tablet tablet metFORMIN metFORMIN No [place] Unknown Unknown 1,000 mg 1,000 mg 01-26 ,[place] tablet tablet Dulera 200 Dulera 200 2018- No [place] Unknown Unknown mcg-5 mcg-5 01-26 Kyle COVARRUBIAS mcg/actuati mcg/actuati on HFA on HFA aerosol aerosol inhaler inhaler amLODIPine amLODIPine 2017- No [place] Unknown Unknown 10 mg 10 mg 01-26 MDKyle tablet tablet lisinopril lisinopril 2017-05- No [place] Unknown Unknown 20 mg 20 mg 0 02-15 ,Kyle tablet tablet oxyCODONE 5 oxyCODONE 5 No Rafita Unknown Unknown mg tablet mg tablet 2-07 ,[place] lisinopril lisinopril 2018- No Rafita Unknown Unknown 20 mg 20 mg -28 06- MD,[place] tablet tablet lisinopril lisinopril No Rafita Unknown Unknown 30 mg 30 mg 2-15 MD,[place] tablet tablet hydroCHLORO hydroCHLORO No Rafita Unknown Unknown thiazide 50 thiazide 50 6- ,[place] mg tablet mg tablet nystatin nystatin No Rafita Unknown Unknown 100,000 100,000 6 ,[place] unit/gram unit/gram topical topical ointment ointment sulfamethox sulfamethox 2018- No Heather Unknown Unknown azole 800 azole 800 11-04- ,Adam A mg-trimetho mg-trimetho prim 160 mg prim 160 mg tablet tablet Symbicort Symbicort No Rafita Unknown Unknown 160 mcg-4.5 160 mcg-4.5 7-16 Simona COVARRUBIAS mcg/actuati mcg/actuati on HFA on HFA aerosol aerosol inhaler inhaler Vital Signs Vital Name Observation Time Observation Value Comments SYSTOLIC mm[Hg] 2019-04-21 18:09:16 129 mm[Hg] mm[Hg] Method: Sit SYSTOLIC mm[Hg] 1840-05-13 00:00:00 127 mm[Hg] mm[Hg] Method: Lie DIASTOLIC mm[Hg] 2019-04-21 18:09:16 76 mm[Hg] mm[Hg] Method: Sit DIASTOLIC mm[Hg] 1840-05-13 00:00:00 83 mm[Hg] mm[Hg] Method: Lie PULSE 2019-04-21 18:09:16 110 /min /min RESP RATE 2019-04-21 18:09:16 18 /min /min TEMP 2019-04-21 18:09:16 96.8 [degF] Procedures This patient has no known procedures. Results This patient has no known results.
--- OUTSIDE RECORDS SUMMARY | 2019-05-09 12:28 | XMS REPORT ---
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 01-26 Ingrm infct infct [id number] causing causing diseases diseases classd classd elswhr elswhr Type 2 Type 2 Diagnosis Active Madelaine diabetes diabetes 05-14 [facility] mellitus mellitus [id number] with with diabetic diabetic neuropathy, neuropathy, unsp unsp Essential Essential Diagnosis Active Madelaine (primary) (primary) 05-14 [facility] hypertensio hypertensio [id number] n n Chronic Chronic Diagnosis Active Madelaine obstructive obstructive 05-14 [facility] pulmonary pulmonary [id number] disease, disease, unspecified unspecified G47.33 G47.33 Diagnosis Active Madelaine 05-14 Ingrahm [id number] Pain frequent Pain Mgmt Resolve 2018-06-14 Darya pain d 01-26 14:43:00 (Tejas) 09:45: Analilia 00 [id number] Cardio edema Cardiovasc Resolve 2018-02-18 Darya ular d 01-26 13:35:00 (Tejas) 09:45: Analilia 00 [id number] Cardio knowledge/s Cardiovasc Resolve 2018-02-18 Darya kill ular d 01-26 13:35:00 (Tejas) deficit: pt 09:45: Analilia 00 [id number] Respiratory dyspnea Respirator Resolve 2018-04-24 Darya present y d 01-26 15:19:00 (Tejas) 09:45: Analilia 00 [id number] Respiratory CPAP Respirator Resolve 2018-04-24 Quality treatments y d 9-15 15:19:00 Realtime7 in home 09:45: 00 Endo/Sen diabetic Endo/Sen Resolve 2018-02-25 Darya foot care d 9-15 14:00:00 (Tejas) 09:45: Billingsley [id number] Integument surgical Integument Resolve 2018-03-25 Darya wound d 9-15 14:35:00 (Tejas) present 09:45: Billingsley [id number] Integument skin Integument Resolve 2018-03-25 Darya integrity d 9-15 14:35:00 (Tejas) risk 09:45: Billingsley [id number] Integument other wound Integument Resolve 2018-03-25 Quality present d 9-15 14:35:00 Realtime7 09:45: 00 Nutrition nutritional Nutrition Resolve 2018-03-15 Darya restriction d 9-15 15:24:00 (Tejas) s 09:45: Billingsley [id number] Elimination urinary Eliminatio Resolve 2018-03-01 Darya incontinenc n d 9-15 09:00:00 (Tejas) e 09:45: Billingsley 00 [id number] Neuro confusion Neuro/Emot Resolve 2018-11-11 Darya present ion d 9-15 14:00:00 (Tejas) 09:45: Billingsley 00 [id number] Neuro anxiety Neuro/Emot Resolve 2018-11-11 Darya present ion d 9-15 14:00:00 (Tejas) 09:45: Billingsley [id number] Activity ADL Activity Resolve 2018-11-11 Darya assistance d 9-15 14:00:00 (Tejas) required 09:45: Billingsley [id number] Safety sanitation Safety Resolve 2018-10-25 Darya hazards d 9-15 15:10:00 (Tejas) present 09:45: Billingsley [id number] Safety fall risk Safety Resolve 2018-10-25 Darya factor d 9-15 15:10:00 (Tejas) present 09:45: Billingsley [id number] Safety risk for Safety Resolve 2018-10-25 Darya hospitaliza d 9-15 15:10:00 (Tejas) tion 09:45: Billingsley 00 [id number] Safety can be left Safety Resolve 2018-11-11 Darya alone for d 9-15 14:00:00 (Tejas) only short 09:45: Billingsley periods 00 [id number] Medication oral med Meds Resolve 2018-03-15 Darya assistance d 9-15 15:24:00 (Tejas) required 09:45: Billingsley [id number] Medication knowledge/s Meds Resolve 2018-03-15 Darya kill d 9-15 15:24:00 (Tejas) deficit: pt 09:45: Billingsley [id number] Medication potential Meds Resolve 2018-03-15 Darya clinically d 9-15 15:24:00 (Tejas) significant 09:45: Billingsley medication [id number] issue Musculoskel transfer Musculoske Unknown Quality etal assistance letal 01-26 Realtime7 required 09:45: 00 Sensory impaired Sensory Resolve 2018-11-11 Quality verbal d 917 14:00:00 Realtime7 communicati 14:00: on 24 Endo/Sen glucose Endo/Sen Resolve 2018-02-25 Cherrise tolerance d 01-31 14:00:00 Olya problem 13:25: [id number] 00 Nutrition knowledge/s Nutrition Resolve 2018-03-15 Cherrise kill d 01-31 15:24:00 Olya deficit: pt 13:25: [id number] 00 Elimination urinary Eliminatio Resolve 2018-03-01 Cherrise urgency n d 01-31 09:00:00 [place] 13:25: [id number] 00 Elimination urinary Eliminatio Resolve 2018-03-01 Cherrise frequency n d 01-31 09:00:00 Olya 13:25: [id number] 00 Neuro impaired Neuro/Emot Resolve 2018-11-11 Cherrise decision-ma ion d 01-31 14:00:00 [place] wilver 13:25: [id number] 00 Musculoskel requires Musculoske Unknown Cherrise etal human letal 9-20 [place] assist to 13:25: [id number] leave home 00 Cardio hypertensio Cardiovasc Resolve 2018-02-18 Cherrise n ular d 9-24 13:35:00 [place] 13:05: [id number] 00 Musculoskel requires Musculoske Unknown 2017-05 Cherrise etal human letal 0-05 [place] assist to 13:40: [id number] leave home 00 Cardio hypertensio Cardiovasc Resolve 2017-052018-03-25 Cherrise n ular d 0-12 14:35:00 Olya 12:45: [id number] 00 Respiratory smoker Respirator Resolve 2017-052018-04-24 Cherrise y d 0-12 15:19:00 [place] 12:45: [id number] 00 Musculoskel transfer Musculoske Unknown 2017-05 Cherrise etal assistance letal 0-12 [place] required 12:45: [id number] 00 Endo/Sen glucose Endo/Sen Resolve 2017-052018-03-22 Cherrise tolerance d 0-22 15:29:00 [place] problem 13:50: [id number] 00 Elimination urinary Eliminatio Resolve 2017-052018-03-15 Cherrise incontinenc n d 0-22 15:24:00 Olya e 13:50: [id number] 00 Elimination urinary Eliminatio Resolve 2017-052018-03-15 Cherrise urgency n d 0-22 15:24:00 Olya 13:50: [id number] 00 Elimination urinary Eliminatio Resolve 2017-052018-03-15 Cherrise frequency n d 0-22 15:24:00 [place] 13:50: [id number] 00 Endo/Sen glucose Endo/Sen Resolve 2017-052018-03-22 Cherrise testing d 0-29 15:29:00 Olya dependence 13:30: [id number] 00 Nutrition knowledge/s Nutrition Resolve 2017-052018-03-25 Cherrise kill d 1-05 14:35:00 Olya deficit: pt 11:30: [id number] 00 Elimination urinary Eliminatio Resolve 2017-052018-03-22 Cherrise frequency n d 1-05 15:29:00 Olya 11:30: [id number] 00 Pain frequent Pain Mgmt Resolve 2017-052018-06-14 Stephany pain d 05-25 14:43:00 Barber-Zos 14:35: h [id number] 00 Nutrition nutritional Nutrition Resolve 2017-052018-03-25 Stephany restriction d 05-25 14:35:00 Sherman-Zos s 14:35: h [id number] 00 Elimination urinary Eliminatio Resolve 2017-052018-04-05 Stephany incontinenc n d 05-25 14:45:00 Barber-Zos e 14:35: h [id number] 00 Elimination urinary Eliminatio Resolve 2017-052018-04-05 Stephany frequency n d 05-25 14:45:00 Sherman-Zos 14:35: h [id number] 00 Musculoskel requires Musculoske Unknown 2017-05 Stephany etal special letal 05-25 Barber-Zos transportat 14:35: h [id number] ion 00 Cardio hypertensio Cardiovasc Resolve 2017-052018-04-12 Cherrise n ular d 05-27 13:46:00 [place] 12:00: [id number] 00 Endo/Sen glucose Endo/Sen Resolve 2017-052018-04-05 Cherrise tolerance d 05-27 14:45:00 Olya problem 12:00: [id number] 00 Elimination urinary Eliminatio Resolve 2017-052018-04-05 Cherrise urgency n d 06-01 14:45:00 [place] 12:45: [id number] 00 Elimination urinary Eliminatio Resolve 2017-052018-04-12 Cherrise urgency n d 06-08 13:46:00 Olya 10:55: [id number] 00 Elimination urinary Eliminatio Resolve 2017-052018-04-12 Cherrise frequency n d 06-08 13:46:00 [place] 10:55: [id number] 00 Endo/Sen glucose Endo/Sen Resolve 2017-052018-04-24 Cherrise tolerance d 06-16 15:19:00 [place] problem 12:20: [id number] 00 Elimination urinary Eliminatio Resolve 2017-052018-04-24 Cherrise frequency n d 06-16 15:19:00 [place] 12:20: [id number] 00 Cardio hypertensio Cardiovasc Resolve 2017-052018-04-24 Cherrise n ular d 2- 15:19:00 [place] 10:35: [id number] 00 Elimination urinary Eliminatio Resolve 2017-052018-04-24 Cherrise urgency n d 2 15:19:00 Olya 10:35: [id number] 00 Elimination urinary Eliminatio Resolve 2017-052018-04-24 Stephany incontinenc n d 06-25 15:19:00 Barber-Zos e 15:19: h [id number] 00 Cardio hypertensio Cardiovasc Resolve 2017-052018-06-07 Cherrise n ular d 2-14 13:31:00 [place] 13:15: [id number] 00 Respiratory dyspnea Respirator Active 2017-05 Cherrise present y 06-27 [place] 13:15: [id number] 00 Respiratory CPAP Respirator Active 2017-05 Cherrise treatments y 06-27 Olya in home 13:15: [id number] 00 Respiratory smoker Respirator Resolve 2017-052018-06-03 Cherrise y d 2-14 14:08:00 [place] 13:15: [id number] 00 Elimination urinary Eliminatio Resolve 2017-052018-05-31 Cherrise urgency n d 2-14 14:21:00 Olya 13:15: [id number] 00 Elimination urinary Eliminatio Resolve 2017-052018-05-31 Cherrise frequency n d 2-14 14:21:00 Olya 13:15: [id number] 00 Elimination diarrhea Eliminatio Resolve 2017-052018-05-31 Cherrise n d 2-14 14:21:00 [place] 13:15: [id number] 00 Endo/Sen glucose Endo/Sen Resolve 2017-052018-05-31 Cherrise tolerance d 2-24 14:21:00 [place] problem 13:10: [id number] 00 Infection s/s of Infection Active Stephany infection 05-31 Barber-Zos 14:21: h [id number] 00 Respiratory smoker Respirator Resolve 2018-09-13 Cherrise y d 06-05 13:20:00 Olya 13:35: [id number] 00 Endo/Sen glucose Endo/Sen Resolve 2018-06-21 Cherrise tolerance d 06-05 10:26:00 [place] problem 13:35: [id number] 00 Elimination urinary Eliminatio Resolve 2018-06-14 Cherrise urgency n d 06-05 14:43:00 [place] 13:35: [id number] 00 Elimination urinary Eliminatio Resolve 2018-06-14 Cherrise frequency n d 06-05 14:43:00 [place] 13:35: [id number] 00 Cardio hypertensio Cardiovasc Resolve 2018-09-13 Cherrise n ular d 06-10 13:20:00 Olya 11:00: [id number] 00 Elimination urinary Eliminatio Resolve 2018-06-21 Cherrise urgency n d 06-19 10:26:00 [place] 10:50: [id number] 00 Elimination urinary Eliminatio Resolve 2018-06-21 Stephany frequency n d 06-21 10:26:00 Sherman-Zos 10:26: h [id number] 00 Endo/Sen glucose Endo/Sen Resolve 2018-06-28 Cherrise tolerance d 2- 14:32:00 [place] problem 11:25: [id number] 00 Elimination urinary Eliminatio Resolve 2018-06-28 Cherrise urgency n d 2- 14:32:00 Olya 11:25: [id number] 00 Elimination urinary Eliminatio Resolve 2018-06-28 Cherrise frequency n d 2- 14:32:00 [place] 11:50: [id number] 00 Endo/Sen glucose Endo/Sen Resolve 2018-07-12 Cherrise tolerance d 07-03 13:43:00 [place] problem 11:50: [id number] 00 Elimination urinary Eliminatio Resolve 2018-07-12 Cherrise urgency n d 07-08 13:43:00 [place] 12:30: [id number] 00 Neuro depressive Neuro/Emot Resolve 2018-11-11 Cherrise feelings ion d 2 14:00:00 Olya present 12:30: [id number] 00 Elimination urinary Eliminatio Resolve 2018-07-12 Cherrise frequency n d 2-27 13:43:00 Olya 10:45: [id number] 00 Elimination urinary Eliminatio Resolve 2018-07-24 Stephany frequency n d 3-06 12:48:00 Barber-Zos 11:53: h [id number] 00 Endo/Sen glucose Endo/Sen Resolve 2018-09-18 Cherrise tolerance d 3-11 10:59:00 Olya problem 10:15: [id number] 00 Elimination urinary Eliminatio Resolve 2018-07-24 Cherrise urgency n d 3-11 12:48:00 Olya 10:15: [id number] 00 Pain frequent Pain Mgmt Resolve 2018-07-24 Stephany pain d 3-13 12:48:00 Barber-Zos 12:48: h [id number] 00 Elimination urinary Eliminatio Resolve 2018-09-13 Cherrise urgency n d 3-15 13:20:00 Olya 12:40: [id number] 00 Musculoskel requires Musculoske Unknown Cherrise etal human letal 3-15 Olya assist to 12:40: [id number] leave home 00 Respiratory lung sounds Respirator Resolve 2018-09-13 Christel deficit y d - 13:20:00 Jeb 15:19: [id number] 00 Safety fire risk Safety Resolve 2018-10-25 Christel present d 3 15:10:00 Jeb 15:19: [id number] 00 Elimination urinary Eliminatio Resolve 2018-09-13 Cherrise frequency n d 4-08 13:20:00 [place] 12:50: [id number] 00 Integument surgical Integument Active Cherrise wound 4-24 Olya present 11:45: [id number] 00 Integument skin Integument Active Cherrise integrity 4-24 Olya risk 11:45: [id number] 00 Integument other wound Integument Active Cherrise present 4- [place] 11:45: [id number] 00 Nutrition knowledge/s Nutrition Active Cherrise kill 09-04 [place] deficit: pt 11:45: [id number] 00 Nutrition nutritional Nutrition Active Cherrise restriction 09-04 Olya s 11:45: [id number] 00 Musculoskel transfer Musculoske Resolve 2018-10-25 Cherrise etal assistance letal d 09-04 15:10:00 Olya required 11:45: [id number] 00 Musculoskel requires Musculoske Resolve 2018-10-25 Cherrise etal human letal d 09-04 15:10:00 Olya assist to 11:45: [id number] leave home 00 Elimination constipatio Eliminatio Resolve 2018-09-13 Cherrise n n d 09-09 13:20:00 [place] 14:10: [id number] 00 Pain frequent Pain Mgmt Resolve 2018-10-25 Madelaine pain d 08 [facility]:10[facility] [id number] 00 Respiratory smoker Respirator Resolve 2018-10-25 Cherrise y d - 15:10:00 [place] 11:50: [id number] 00 Elimination urinary Eliminatio Resolve 2018-10-25 Cherrise urgency n d - 15:10:00 Olya 11:50: [id number] 00 Cardio hypertensio Cardiovasc Resolve 2018-11-11 Cherrise n ular d 10-09 14:00:00 Olya 11:20: [id number] 00 Endo/Sen glucose Endo/Sen Resolve 2018-10-25 Cherrise tolerance d 10-09 15:10:00 [place] problem 11:20: [id number] 00 Elimination urinary Eliminatio Resolve 2018-10-25 Conchita frequency n d 10-16 15:10:00 Shimon, 14:00: [id number] 00 Cardio edema Cardiovasc Resolve 2018-11-11 Cherrise ular d 6- 14:00:00 Olya 11:00: [id number] 00 Safety risk for Safety Resolve 2018-11-01 Conchita hospitaliza d 6-17 14:00:00 daniel Robins 14:30: [id number] 00 Respiratory smoker Respirator Resolve 2018-11-11 Cherrise y d 6-19 14:00:00 Olya 10:25: [id number] 00 Endo/Sen glucose Endo/Sen Resolve 2018-11-11 Cherrise tolerance d 6-19 14:00:00 Olya problem 10:25: [id number] 00 Elimination urinary Eliminatio Resolve 2018-11-11 Cherrise urgency n d 6-19 14:00:00 Olya 10:25: [id number] 00 Elimination urinary Eliminatio Resolve 2018-11-11 Cherrise frequency n d 6-19 14:00:00 Olya 10:25: [id number] 00 Musculoskel requires Musculoske Resolve 2018-12-23 Cherrise etal human letal d 6- 11:00:00 Olya assist to 10:25: [id number] leave home 00 Musculoskel requires Musculoske Resolve 2018-12-23 Kerry etal special letal d 6- 11:00:00 Maria Antonia transportat 18:30: [id number] ion 00 Safety fall risk Safety Resolve 2018-12-13 Cherrise factor d 7- 14:40:00 [place] present 14:45: [id number] 00 Neuro impaired Neuro/Emot Resolve 2018-12-13 Madelaine mullen ion d 7- 14:40:00 Jose Angel pettit 14:00: [id number] 00 Safety risk for Safety Resolve 2018-12-13 Madelaine garciaiza d 7-10 14:40:00 Ingrahm tion 14:00: [id number] 00 Cardio edema Cardiovasc Resolve 2018-12-23 Cherrise ular d 7-15 11:00:00 Olya 11:00: [id number] 00 Respiratory smoker Respirator Resolve 2018-12-23 Cherrise y d 7-15 11:00:00 [place] 11:00: [id number] 00 Endo/Sen glucose Endo/Sen Resolve 2019-01-01 Cherrise tolerance d 7-15 15:00:00 [place] problem 11:00: [id number] 00 Elimination urinary Eliminatio Resolve 2018-12-13 Cherrise urgency n d 7-15 14:40:00 Olya 11:00: [id number] 00 Safety sanitation Safety Resolve 2018-12-13 Cherrise hazards d 7-15 14:40:00 Olya present 11:00: [id number] 00 Elimination urinary Eliminatio Resolve 2018-12-13 Cherrise frequency n d 7 14:40:00 [place] 11:15: [id number] 00 Neuro depressive Neuro/Emot Resolve 2019-01-17 Cherrise feelings ion d 12-02 15:25:00 Olya present 11:15: [id number] 00 Cardio hypertensio Cardiovasc Resolve 2018-12-23 Cherrise n ular d 12-04 11:00:00 [place] 14:40: [id number] 00 Musculoskel knowledge/s Musculoske Resolve 2018-12-23 Cherrise etal kill letal d 12-16 11:00:00 Olya deficit: cg 14:15: [id number] 00 Elimination urinary Eliminatio Resolve 2018-12-23 Cherrise urgency n d 12-20 11:00:00 Olya 10:10: [id number] 00 Neuro depressive Neuro/Emot Unknown Cherrise feelings ion 12-20 [place] present 10:10: [id number] 00 Neuro impaired Neuro/Emot Resolve 2019-01-17 Cherrise decision-ma ion d 12-20 15:25:00 Olya wilver 10:10: [id number] 00 Safety risk for Safety Resolve 2018-12-23 Cherrise hospitaliza d 12-20 11:00:00 [place] tion 10:10: [id number] 00 Sensory impaired Sensory Resolve 2019-01-17 Madelaine verbal d 12-23 15:25:00 Ingrahm communicati 11:00: [id number] on 00 Cardio hypertensio Cardiovasc Resolve 2019-01-01 Cherrise n ular d 8-14 15:00:00 [place] 12:00: [id number] 00 Respiratory smoker Respirator Resolve 2019-01-01 Cherrise y d 8-14 15:00:00 Olya 12:00: [id number] 00 Elimination urinary Eliminatio Resolve 2019-01-01 Cherrise urgency n d 8-14 15:00:00 Olya 12:00: [id number] 00 Neuro anxiety Neuro/Emot Resolve 2019-01-17 Cherrise present ion d 8-14 15:25:00 [place] 12:00: [id number] 00 Safety risk for Safety Resolve 2019-01-01 Cherrise hospitaliza d 8-14 15:00:00 [place] tion 12:00: [id number] 00 Musculoskel requires Musculoske Unknown Cherrise etal human letal 12-25 [place] assist to 12:00: [id number] leave home 00 Respiratory smoker Respirator Resolve 2019-01-17 Cherrise y d 01-03 15:25:00 Olya 11:45: [id number] 00 Elimination urinary Eliminatio Resolve 2019-01-17 Cherrise urgency n d 01-03 15:25:00 Olya 11:45: [id number] 00 Safety fall risk Safety Resolve 2019-01-06 Cherrise factor d 8 12:25:00 Olya present 11:45: [id number] 00 Safety risk for Safety Resolve 2019-02-12 Cherrise hospitaliza d 01-03 15:15:00 [place] tion 11:45: [id number] 00 Neuro memory Neuro/Emot Resolve 2019-03-31 Cherrise deficit ion d 01-13 15:30:00 Olya needing 11:20: [id number] supervision 00 Elimination urinary Eliminatio Resolve 2019-01-17 Madelaine incontinenc n d 01-17 15:25:00 Ingrahm e 15:25: [id number] 00 Safety fall risk Safety Resolve 2019-01-17 Desiree factor d 9-06 15:25:00 Rashid present 15:25: [id number] 00 Cardio hypertensio Cardiovasc Resolve 2019-01-24 Narciso aguilar ular d 01-20 09:00:00 [place] 11:15: [id number] 00 Safety sanitation Safety Resolve 2019-02-12 Cherrise hazards d 01-20 15:15:00 [place] present 11:15: [id number] 00 Respiratory smoker Respirator Resolve 2019-01-24 Madelaine y d 01-24 09:00:00 Ingrahm 09:00: [id number] 00 Musculoskel transfer Musculoske Active Cherrise etal assistance letal 01-29 [place] required 13:25: [id number] 00 Musculoskel requires Musculoske Active Cherrise etal human letal 01-29 Olya assist to 13:25: [id number] leave home 00 Musculoskel requires Musculoske Active Cherrise etal special letal 01-29 Olya transportat 13:25: [id number] ion 00 Respiratory smoker Respirator Resolve 2019-02-05 Cherrise y d 02-03 15:10:00 Olya 10:00: [id number] 00 Elimination urinary Eliminatio Resolve 2019-02-12 Cherrise urgency n d 02-03 15:15:00 Olya 10:00: [id number] 00 Safety fall risk Safety Resolve 2019-02-12 Cherrise factor d 02-07 15:15:00 [place] present 11:15: [id number] 00 Cardio hypertensio Cardiovasc Resolve 2018-052019-02-19 Narciso hernandez d 0-04 14:00:00 Olya 11:50: [id number] 00 Respiratory smoker Respirator Resolve 2018-052019-02-19 Gigie y d 0-07 14:00:00 [place] 11:30: [id number] 00 Safety risk for Safety Resolve 2018-052019-03-12 Madelaine landon d 009 15:00:00 Ingrahm tion 14:00: [id number] 00 Cardio hypertensio Cardiovasc Resolve 2018-052019-03-19 Cherrise n ular d 0-18 14:00:00 Olya 12:30: [id number] 00 Respiratory smoker Respirator Resolve 2018-052019-03-12 Cherrise y d 0-18 15:00:00 [place] 12:30: [id number] 00 Elimination urinary Eliminatio Resolve 2018-052019-03-12 Cherrise urgency n d 0-18 15:00:00 Olya 12:30: [id number] 00 Respiratory smoker Respirator Resolve 2018-052019-03-19 Cherrise y d 1-04 14:00:00 Olya 09:40: [id number] 00 Elimination urinary Eliminatio Resolve 2018-052019-03-19 Cherrise urgency n d 1-04 14:00:00 [place] 09:40: [id number] 00 Safety risk for Safety Resolve 2018-052019-03-31 Cherrise hospitaliza d 1-04 15:30:00 [place] tion 09:40: [id number] 00 Safety fall risk Safety Resolve 2018-052019-03-31 Madelaine factor d 1-06 15:30:00 Ingrahm present 14:00: [id number] 00 Elimination urinary Eliminatio Resolve 2018-052019-03-31 Madelaine incontinenc n d 1-13 15:30:00 Ingrahm e 15:30: [id number] 00 Respiratory smoker Respirator Resolve 2018-052019-03-31 Cherrise y d 1-15 15:30:00 [place] 10:55: [id number] 00 Elimination urinary Eliminatio Resolve 2018-052019-03-31 Cherrise urgency n d 1-15 15:30:00 [place] 10:55: [id number] 00 Neuro depressive Neuro/Emot Resolve 2018-052019-03-31 Cherrise feelings ion d 115 15:30:00 [place] present 10:55: [id number] 00 Neuro impaired Neuro/Emot Resolve 2018-052019-03-31 Cherrise decision-ma ion d 115 15:30:00 Olya wilver 10:55: [id number] 00 Safety sanitation Safety Resolve 2018-052019-03-31 Cherrise hazards d 1-15 15:30:00 Olya present 10:55: [id number] 00 Cardio hypertensio Cardiovasc Active 2018-05 Cherrise n ular 06-07 Olya 11:30: [id number] 00 Respiratory smoker Respirator Active 2018-05 Cherrise y 06-16 Olya 14:05: [id number] 00 Elimination urinary Eliminatio Resolve 2018-052019-04-18 Cherrise incontinenc n d 06-16 14:30:00 Olya e 14:05: [id number] 00 Elimination urinary Eliminatio Resolve 2018-052019-04-18 Cherrise urgency n d 06-16 14:30:00 Olya 14:05: [id number] 00 Neuro depressive Neuro/Emot Active 2018-05 Cherrise feelings ion 06-16 Olya present 14:05: [id number] 00 Neuro impaired Neuro/Emot Active 2018-05 Cherrise decision-ma ion 06-16 [place] wilver 14:05: [id number] 00 Cardio edema Cardiovasc Active 2018-05 Cherrise ular 06-26 Olya 11:50: [id number] 00 Allergies, Adverse Reactions, Alerts Allergy Allergy [...] Unknown Unknown 20 mg 20 mg 01-26 ,Halsey tablet tablet losartan losartan 2017- No Pachikara Unknown Unknown 100 mg 100 mg 01-26 ,Halsey tablet tablet metFORMIN metFORMIN No Pachikara Unknown Unknown 1,000 mg 1,000 mg 01-26 ,Kyle tablet tablet Dulera 200 Dulera 200 2018- No Pachikara Unknown Unknown mcg-5 mcg-5 01-26 Kyle COVARRUBIAS mcg/actuati mcg/actuati on HFA on HFA aerosol aerosol inhaler inhaler amLODIPine amLODIPine 2017- No [place]achikara Unknown Unknown 10 mg 10 mg 9-15 10-15 MD,Kyle tablet tablet lisinopril lisinopril 2017-05 No [place] Unknown Unknown 20 mg 20 mg 0-11 02-15 MD,Kyle tablet tablet oxyCODONE 5 oxyCODONE 5 No Rafita Unknown Unknown mg tablet mg tablet 2-07 MD,Simona lisinopril lisinopril No Rafita Unknown Unknown 20 mg 20 mg 2-15 02-20 MD,Simona tablet tablet lisinopril lisinopril No Rafita Unknown Unknown 30 mg 30 mg 2-15 MD,Simona tablet tablet hydroCHLORO hydroCHLORO No Rafita Unknown Unknown thiazide 50 thiazide 50 6-15 MD,Simona mg tablet mg tablet nystatin nystatin No Rafita Unknown Unknown 100,000 100,000 6-15 MD,Simona unit/gram unit/gram topical topical ointment ointment sulfamethox sulfamethox 2018- No Heather Unknown Unknown azole 800 azole 800 6 07-08 MD,Adam A mg-trimetho mg-trimetho prim 160 mg prim 160 mg tablet tablet Symbicort Symbicort No Rafita Unknown Unknown 160 mcg-4.5 160 mcg-4.5 7-16 ,Simona mcg/actuati mcg/actuati on HFA on HFA aerosol aerosol inhaler inhaler Vital Signs Vital Name Observation Time Observation Value Comments SYSTOLIC mm[Hg] 2019-04-25 18:09:20 95 mm[Hg] mm[Hg] Method: Sit SYSTOLIC mm[Hg] 1840-05-13 00:00:00 127 mm[Hg] mm[Hg] Method: Lie DIASTOLIC mm[Hg] 2019-04-25 18:09:20 74 mm[Hg] mm[Hg] Method: Sit DIASTOLIC mm[Hg] 1840-05-13 00:00:00 83 mm[Hg] mm[Hg] Method: Lie PULSE 2019-04-25 18:09:20 88 /min /min RESP RATE 2019-04-25 18:09:20 18 /min /min TEMP 2019-04-25 18:09:20 96.4 [degF] Procedures This patient has no known procedures. Results This patient has no known results.
--- OUTSIDE RECORDS SUMMARY | 2019-05-09 12:28 | XMS REPORT ---
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 [id number] causing causing diseases diseases classd classd elswhr elswhr Type 2 Type 2 Diagnosis Active Madelaine diabetes diabetes 05-14 [facility] mellitus mellitus [id number] with with diabetic diabetic neuropathy, neuropathy, unsp unsp Essential Essential Diagnosis Active Madelaine (primary) (primary) 05-14 [facility] hypertensio hypertensio [id number] n n Chronic Chronic Diagnosis Active Madelaine obstructive obstructive 05-14 [facility] pulmonary pulmonary [id number] disease, disease, unspecified unspecified G47.33 G47.33 Diagnosis Active Madelaine 05-14 In[facility] [id number] Pain frequent Pain Mgmt Resolve 2018-06-14 Darya pain d 01-26 14:43:00 (Tejas) 09:45: Analilia 00 [id number] Cardio edema Cardiovasc Resolve 2018-02-18 Darya ular d 01-26 13:35:00 (Tejas) 09:45: Analilia 00 [id number] Cardio knowledge/s Cardiovasc Resolve 2018-02-18 Darya kill ular d 01-26 13:35:00 (Tejas) deficit: pt 09:45: Analilia 00 [id number] Respiratory dyspnea Respirator Resolve 2018-04-24 Darya present y d 01-26 15:19:00 (Tejas) 09:45: Analilia 00 [id number] Respiratory CPAP Respirator Resolve 2018-04-24 Quality treatments y d 9-15 15:19:00 Realtime7 in home 09:45: 00 Endo/Sen diabetic Endo/Sen Resolve 2018-02-25 Darya foot care d 9-15 14:00:00 (Tejas) 09:45: Billingsley [id number] Integument surgical Integument Resolve 2018-03-25 Darya wound d 9-15 14:35:00 (Tejas) present 09:45: Billingsley [id number] Integument skin Integument Resolve 2018-03-25 Darya integrity d 9-15 14:35:00 (Tejas) risk 09:45: Billingsley [id number] Integument other wound Integument Resolve 2018-03-25 Quality present d 9-15 14:35:00 Realtime7 09:45: 00 Nutrition nutritional Nutrition Resolve 2018-03-15 Darya restriction d 9-15 15:24:00 (Tejas) s 09:45: Billingsley [id number] Elimination urinary Eliminatio Resolve 2018-03-01 Darya incontinenc n d 9-15 09:00:00 (Tejas) e 09:45: Billingsley 00 [id number] Neuro confusion Neuro/Emot Resolve 2018-11-11 Darya present ion d 9-15 14:00:00 (Tejas) 09:45: Billingsley 00 [id number] Neuro anxiety Neuro/Emot Resolve 2018-11-11 Darya present ion d 9-15 14:00:00 (Tejas) 09:45: Billingsley [id number] Activity ADL Activity Resolve 2018-11-11 Darya assistance d 9-15 14:00:00 (Tejas) required 09:45: Billingsley [id number] Safety sanitation Safety Resolve 2018-10-25 Darya hazards d 9-15 15:10:00 (Tejas) present 09:45: Billingsley [id number] Safety fall risk Safety Resolve 2018-10-25 Darya factor d 9-15 15:10:00 (Tejas) present 09:45: Billingsley [id number] Safety risk for Safety Resolve 2018-10-25 Darya hospitaliza d 9-15 15:10:00 (Tejas) tion 09:45: Billingsley 00 [id number] Safety can be left Safety Resolve 2018-11-11 Darya alone for d 9-15 14:00:00 (Tejas) only short 09:45: Billingsley periods 00 [id number] Medication oral med Meds Resolve 2018-03-15 Darya assistance d 9-15 15:24:00 (Tejas) required 09:45: Billingsley [id number] Medication knowledge/s Meds Resolve 2018-03-15 Darya kill d 9-15 15:24:00 (Tejas) deficit: pt 09:45: Billingsley [id number] Medication potential Meds Resolve 2018-03-15 Darya clinically d 9-15 15:24:00 (Tejas) significant 09:45: Billingsley medication [id number] issue Musculoskel transfer Musculoske Unknown Quality etal assistance letal 01-26 Realtime7 required 09:45: 00 Sensory impaired Sensory Resolve 2018-11-11 Quality verbal d 917 14:00:00 Realtime7 communicati 14:00: on 24 Endo/Sen glucose Endo/Sen Resolve 2018-02-25 Cherrise tolerance d 01-31 14:00:00 Olya problem 13:25: [id number] 00 Nutrition knowledge/s Nutrition Resolve 2018-03-15 Cherrise kill d 01-31 15:24:00 Olya deficit: pt 13:25: [id number] 00 Elimination urinary Eliminatio Resolve 2018-03-01 [facility]rise urgency n d 01-31 09:[facility] 13:25: [id number] 00 Elimination urinary Eliminatio Resolve 2018-03-01 Cherrise frequency n d 01-31 09:00:00 Olya 13:25: [id number] 00 Neuro impaired Neuro/Emot Resolve 2018-11-11 Cherrise decision-ma ion d 01-31 14:00:00 [facility] 13:25: [id number] 00 Musculoskel requires Musculoske Unknown Cherrise etal human letal 9-20 [facility] assist to 13:25: [id number] leave home 00 Cardio hypertensio Cardiovasc Resolve 2018-02-18 Cherrise n ular d 9-24 13:35:00 [facility] 13:05: [id number] 00 Musculoskel requires Musculoske Unknown 2017-05 Cherrise etal human letal 0-05 [facility] assist to 13:40: [id number] leave home 00 Cardio hypertensio Cardiovasc Resolve 2017-052018-03-25 Cherrise n ular d 0-12 14:35:00 Olya 12:45: [id number] 00 Respiratory smoker Respirator Resolve 2017-052018-04-24 [facility] y d 0-12 15:19:00 [facility] 12:45: [id number] 00 Musculoskel transfer Musculoske Unknown 2017-05 [facility] etal assistance letal 0-12 [facility] required 12:45: [id number] 00 Endo/Sen glucose Endo/Sen Resolve 2017-052018-03-22 [facility] tolerance d 0-22 15:29:00 [facility] problem 13:50: [id number] 00 Elimination urinary Eliminatio Resolve 2017-052018-03-15 Cher[facility] incontinenc n d 0-22 15:24:00 Olya e 13:50: [id number] 00 Elimination urinary Eliminatio Resolve 2017-052018-03-15 [facility] urgency n d 0-22 15:24:00 Olya 13:50: [id number] 00 Elimination urinary Eliminatio Resolve 2017-052018-03-15 [facility] frequency n d 0-22 15:24:00 [facility] 13:50: [id number] 00 Endo/Sen glucose Endo/Sen Resolve 2017-052018-03-22 Cher[facility] testing d 0-29 15:29:00 Olya dependence 13:30: [id number] 00 Nutrition knowledge/s Nutrition Resolve 2017-052018-03-25 Cherrise kill d 1-05 14:35:00 Olya deficit: pt 11:30: [id number] 00 Elimination urinary Eliminatio Resolve 2017-052018-03-22 Cherrise frequency n d 1-05 15:29:00 Olya 11:30: [id number] 00 Pain frequent Pain Mgmt Resolve 2017-052018-06-14 Stephany pain d 05-25 14:43:00 [facility] 14:35: h [id number] 00 Nutrition nutritional Nutrition Resolve 2017-052018-03-25 Stephany restriction d 05-25 14:35:00 Slay[facility]-Zos s 14:35: h [id number] 00 Elimination urinary Eliminatio Resolve 2017-052018-04-05 Stephany incontinenc n d 05-25 14:45:00 [facility] e 14:35: h [id number] 00 Elimination urinary Eliminatio Resolve 2017-052018-04-05 Stephany frequency n d 05-25 14:45:00 Sl[facility]den-[facility]os 14:35: h [id number] 00 Musculoskel requires Musculoske Unknown 2017-05 Stephany etal special letal 05-25 [facility] transportat 14:35: h [id number] ion 00 Cardio hypertensio Cardiovasc Resolve 2017-052018-04-12 [facility] n ular d 05-27 13:46:00 [facility] 12:00: [id number] 00 Endo/Sen glucose Endo/Sen Resolve 2017-052018-04-05 [facility] tolerance d 05-27 14:45:00 Olya problem 12:00: [id number] 00 Elimination urinary Eliminatio Resolve 2017-052018-04-05 [facility] urgency n d 06-01 14:45:00 [facility] 12:45: [id number] 00 Elimination urinary Eliminatio Resolve 2017-052018-04-12 [facility] urgency n d 06-08 13:46:00 Olya 10:55: [id number] 00 Elimination urinary Eliminatio Resolve 2017-052018-04-12 [facility] frequency n d 06-08 13:46:00 [facility] 10:55: [id number] 00 Endo/Sen glucose Endo/Sen Resolve 2017-052018-04-24 [facility] tolerance d 06-16 15:19:00 [facility] problem 12:20: [id number] 00 Elimination urinary Eliminatio Resolve 2017-052018-04-24 [facility] frequency n d 06-16 15:19:00 [facility] 12:20: [id number] 00 Cardio hypertensio Cardiovasc Resolve 2017-052018-04-24 [facility] n ular d 2- 15:19:[facility] 10:35: [id number] 00 Elimination urinary Eliminatio Resolve 2017-052018-04-24 Cherrise urgency n d 2 15:19:00 Olya 10:35: [id number] 00 Elimination urinary Eliminatio Resolve 2017-052018-04-24 Stephany incontinenc n d 06-25 15:19:00 [facility] e 15:19: h [id number] 00 Cardio hypertensio Cardiovasc Resolve 2017-052018-06-07 [facility] n ular d 2-14 13:31:00 [facility] 13:15: [id number] 00 Respiratory dyspnea Respirator Active 2017-05 [facility] present y 06-27 [facility] 13:15: [id number] 00 Respiratory CPAP Respirator Active 2017-05 [facility] treatments y 06-27 Olya in home 13:15: [id number] 00 Respiratory smoker Respirator Resolve 2017-052018-06-03 [facility] y d 2-14 14:08:00 [facility] 13:15: [id number] 00 Elimination urinary Eliminatio Resolve 2017-052018-05-31 Cherrise urgency n d 2-14 14:21:00 Olya 13:15: [id number] 00 Elimination urinary Eliminatio Resolve 2017-052018-05-31 Cherrise frequency n d 2-14 14:21:00 Olya 13:15: [id number] 00 Elimination diarrhea Eliminatio Resolve 2017-052018-05-31 [facility] n d 2-14 14:21:00 [facility] 13:15: [id number] 00 Endo/Sen glucose Endo/Sen Resolve 2017-052018-05-31 [facility] tolerance d 2-24 14:21:00 [facility] problem 13:10: [id number] 00 Infection s/s of Infection Active Stephany infection 05-31 [facility] 14:21: h [id number] 00 Respiratory smoker Respirator Resolve 2018-09-13 Cherrise y d 06-05 13:20:00 Olya 13:35: [id number] 00 Endo/Sen glucose Endo/Sen Resolve 2018-06-21 Cherrise tolerance d 06-05 10:26:00 [facility] problem 13:35: [id number] 00 Elimination urinary Eliminatio Resolve 2018-06-14 Cherrise urgency n d 06-05 14:43:00 [facility] 13:35: [id number] 00 Elimination urinary Eliminatio Resolve 2018-06-14 Cherrise frequency n d 06-05 14:43:00 [facility] 13:35: [id number] 00 Cardio hypertensio Cardiovasc Resolve 2018-09-13 Cherrise n ular d 06-10 13:20:00 Olya 11:00: [id number] 00 Elimination urinary Eliminatio Resolve 2018-06-21 [facility] urgency n d 06-19 10:26:00 [facility] 10:50: [id number] 00 Elimination urinary Eliminatio Resolve 2018-06-21 Stephany frequency n d 06-21 10:26:00 [facility] 10:26: h [id number] 00 Endo/Sen glucose Endo/Sen Resolve 2018-06-28 Cherrise tolerance d 2- 14:32:00 [facility] problem 11:25: [id number] 00 Elimination urinary Eliminatio Resolve 2018-06-28 Cherrise urgency n d 2- 14:32:00 Olya 11:25: [id number] 00 Elimination urinary Eliminatio Resolve 2018-06-28 [facility] frequency n d 2- 14:32:[facility] 11:50: [id number] 00 Endo/Sen glucose Endo/Sen Resolve 2018-07-12 [facility] tolerance d 07-03 13:43:00 [facility] problem 11:50: [id number] 00 Elimination urinary Eliminatio Resolve 2018-07-12 [facility] urgency n d 07-08 13:43:00 [facility] 12:30: [id number] 00 Neuro depressive Neuro/Emot Resolve 2018-11-11 Cherrise feelings ion d 2 14:00:00 Olya present 12:30: [id number] 00 Elimination urinary Eliminatio Resolve 2018-07-12 Cherrise frequency n d 2-27 13:43:00 Olya 10:45: [id number] 00 Elimination urinary Eliminatio Resolve 2018-07-24 Stephany frequency n d 3-06 12:48:00 [facility] 11:53: h [id number] 00 Endo/Sen glucose Endo/Sen Resolve 2018-09-18 Cherrise tolerance d 3-11 10:59:00 Olya problem 10:15: [id number] 00 Elimination urinary Eliminatio Resolve 2018-07-24 Cherrise urgency n d 3-11 12:48:00 Olya 10:15: [id number] 00 Pain frequent Pain Mgmt Resolve 2018-07-24 Stephany pain d 3-13 12:48:00 [facility] 12:48: h [id number] 00 Elimination urinary Eliminatio Resolve 2018-09-13 Cherrise urgency n d 3-15 13:20:00 Olya 12:40: [id number] 00 Musculoskel requires Musculoske Unknown Cherrise etal human letal 3-15 Olya assist to 12:40: [id number] leave home 00 Respiratory lung sounds Respirator Resolve 2018-09-13 Christel deficit y d - 13:20:00 Jeb 15:19: [id number] 00 Safety fire risk Safety Resolve 2018-10-25 Christel present d 3 15:10:00 Jeb 15:19: [id number] 00 Elimination urinary Eliminatio Resolve 2018-09-13 Cherrise frequency n d 4-08 13:20:00 [facility] 12:50: [id number] 00 Integument surgical Integument Active Cherrise wound 4-24 Olya present 11:45: [id number] 00 Integument skin Integument Active Cherrise integrity 4-24 Olya risk 11:45: [id number] 00 Integument other wound Integument Active [facility]rise present 4- [facility] 11:45: [id number] 00 Nutrition knowledge/s Nutrition Active [facility]rise kill 09-04 [facility] deficit: pt 11:45: [id number] 00 Nutrition nutritional Nutrition Active Cherrise restriction 09-04 Olya s 11:45: [id number] 00 Musculoskel transfer Musculoske Resolve 2018-10-25 Cherrise etal assistance letal d 09-04 15:10:00 Olya required 11:45: [id number] 00 Musculoskel requires Musculoske Resolve 2018-10-25 Cherrise etal human letal d 09-04 15:10:00 Olya assist to 11:45: [id number] leave home 00 Elimination constipatio Eliminatio Resolve 2018-09-13 [facility]rise n n d 09-09 13:20:00 [facility] 14:10: [id number] 00 Pain frequent Pain Mgmt Resolve 2018-10-25 Madelaine pain d 08 15:10:00 [facility] 10:59: [id number] 00 Respiratory smoker Respirator Resolve 2018-10-25 Cherrise y d - 15:10:00 [facility] 11:50: [id number] 00 Elimination urinary Eliminatio Resolve 2018-10-25 Cherrise urgency n d - 15:10:00 Olya 11:50: [id number] 00 Cardio hypertensio Cardiovasc Resolve 2018-11-11 Cherrise n ular d 10-09 14:00:00 Olya 11:20: [id number] 00 Endo/Sen glucose Endo/Sen Resolve 2018-10-25 Cherrise tolerance d 10-09 15:10:00 [facility] problem 11:20: [id number] 00 Elimination urinary Eliminatio Resolve 2018-10-25 Conchita frequency n d 10-16 15:10:00 Shimon, 14:00: [id number] 00 Cardio edema Cardiovasc Resolve 2018-11-11 Cherrise ular d 6- 14:00:00 Olya 11:00: [id number] 00 Safety risk for Safety Resolve 2018-11-01 Conchita hospitaliza d 6-17 14:00:00 daniel Robins 14:30: [id number] 00 Respiratory smoker Respirator Resolve 2018-11-11 Cherrise y d 6-19 14:00:00 Olya 10:25: [id number] 00 Endo/Sen glucose Endo/Sen Resolve 2018-11-11 Cherrise tolerance d 6-19 14:00:00 Olya problem 10:25: [id number] 00 Elimination urinary Eliminatio Resolve 2018-11-11 Cherrise urgency n d 6-19 14:00:00 Olya 10:25: [id number] 00 Elimination urinary Eliminatio Resolve 2018-11-11 Cherrise frequency n d 6-19 14:00:00 Olya 10:25: [id number] 00 Musculoskel requires Musculoske Resolve 2018-12-23 Cherrise etal human letal d 6- 11:00:00 Olya assist to 10:25: [id number] leave home 00 Musculoskel requires Musculoske Resolve 2018-12-23 Kerry etal special letal d 6- 11:00:00 Maria Antonia transportat 18:30: [id number] ion 00 Safety fall risk Safety Resolve 2018-12-13 [facility] factor d 7- 14:40:00 [facility] present 14:45: [id number] 00 Neuro impaired Neuro/Emot Resolve 2018-12-13 Madelaine mullen ion d 7- 14:40:00 Jose Angel pettit 14:00: [id number] 00 Safety risk for Safety Resolve 2018-12-13 Madelaine garciaiza d 7-10 14:40:00 Ingrahm tion 14:00: [id number] 00 Cardio edema Cardiovasc Resolve 2018-12-23 Cher[facility] ular d 7-15 11:00:00 Olya 11:00: [id number] 00 Respiratory smoker Respirator Resolve 2018-12-23 [facility] y d 7-15 11:00:00 [facility] 11:00: [id number] 00 Endo/Sen glucose Endo/Sen Resolve 2019-01-01 Cher[facility] tolerance d 7-15 15:00:00 [facility] problem 11:00: [id number] 00 Elimination urinary Eliminatio Resolve 2018-12-13 Cherrise urgency n d 7-15 14:40:00 Olya 11:00: [id number] 00 Safety sanitation Safety Resolve 2018-12-13 Cherrise hazards d 7-15 14:40:00 Olya present 11:00: [id number] 00 Elimination urinary Eliminatio Resolve 2018-12-13 [facility] frequency n d 7 14:40:00 [facility] 11:15: [id number] 00 Neuro depressive Neuro/Emot Resolve 2019-01-17 Cher[facility] feelings ion d 12-02 15:25:00 Olya present 11:15: [id number] 00 Cardio hypertensio Cardiovasc Resolve 2018-12-23 [facility] n ular d 12-04 11:00:00 [facility] 14:40: [id number] 00 Musculoskel knowledge/s Musculoske Resolve 2018-12-23 Cherrise etal kill letal d 12-16 11:00:00 Olya deficit: cg 14:15: [id number] 00 Elimination urinary Eliminatio Resolve 2018-12-23 Cher[facility] urgency n d 12-20 11:00:00 Olya 10:10: [id number] 00 Neuro depressive Neuro/Emot Unknown [facility] feelings ion 12-20 [facility] present 10:10: [id number] 00 Neuro impaired Neuro/Emot Resolve 2019-01-17 Cher[facility] decision-ma ion d 12-20 15:25:00 Olya wilver 10:10: [id number] 00 Safety risk for Safety Resolve 2018-12-23 [facility] hospitaliza d 12-20 11:00:00 [facility] tion 10:10: [id number] 00 Sensory impaired Sensory Resolve 2019-01-17 Madelaine verbal d 12-23 15:25:00 Ingrahm communicati 11:00: [id number] 00 Cardio hypertensio Cardiovasc Resolve 2019-01-01 [facility] n ular d 8-14 15:00:00 [facility] 12:00: [id number] 00 Respiratory smoker Respirator Resolve 2019-01-01 Cher[facility] y d 8-14 15:00:00 Olya 12:00: [id number] 00 Elimination urinary Eliminatio Resolve 2019-01-01 [facility] urgency n d 8-14 15:00:00 Olya 12:00: [id number] 00 Neuro anxiety Neuro/Emot Resolve 2019-01-17 [facility] present ion d 8-14 15:25:00 [facility] 12:00: [id number] 00 Safety risk for Safety Resolve 2019-01-01 [facility] hospitaliza d 8-14 15:00:00 [facility] tion 12:00: [id number] 00 Musculoskel requires Musculoske Unknown [facility] etal human letal 12-25 [facility] assist to 12:00: [id number] leave home 00 Respiratory smoker Respirator Resolve 2019-01-17 Cher[facility] y d 01-03 15:25:00 Olya 11:45: [id number] 00 Elimination urinary Eliminatio Resolve 2019-01-17 Cher[facility] urgency n d 01-03 15:25:00 Olya 11:45: [id number] 00 Safety fall risk Safety Resolve 2019-01-06 Cher[facility] factor d 8 12:25:00 Olya present 11:45: [id number] 00 Safety risk for Safety Resolve 2019-02-12 [facility] hospitaliza d 01-03 15:15:00 [facility] tion 11:45: [id number] 00 Neuro memory Neuro/Emot Resolve 2019-03-31 [facility] deficit ion d 01-13 15:30:00 Olya needing 11:20: [id number] supervision 00 Elimination urinary Eliminatio Resolve 2019-01-17 Madelaine incontinenc n d 01-17 15:25:00 Ingrahm e 15:25: [id number] 00 Safety fall risk Safety Resolve 2019-01-17 Desiree factor d 9-06 15:25:00 Rashid present 15:25: [id number] 00 Cardio hypertensio Cardiovasc Resolve 2019-01-24 Narciso aguilar ular d 01-20 09:00:00 [facility] 11:15: [id number] 00 Safety sanitation Safety Resolve 2019-02-12 [facility] hazards d 01-20 15:15:00 [facility] present 11:15: [id number] 00 Respiratory smoker Respirator Resolve 2019-01-24 Madelaine y d 01-24 09:00:00 Ingrahm 09:00: [id number] 00 Musculoskel transfer Musculoske Active Cher[facility] etal assistance letal 01-29 [facility] required 13:25: [id number] 00 Musculoskel requires Musculoske Active [facility] etal human letal 01-29 Olya assist to 13:25: [id number] leave home 00 Musculoskel requires Musculoske Active Cher[facility] etal special letal 01-29 Olya transportat 13:25: [id number] ion 00 Respiratory smoker Respirator Resolve 2019-02-05 [facility] y d 02-03 15:10:00 Olya 10:00: [id number] 00 Elimination urinary Eliminatio Resolve 2019-02-12 [facility] urgency n d 02-03 15:15:00 Olya 10:00: [id number] 00 Safety fall risk Safety Resolve 2019-02-12 Cher[facility] factor d 02-07 15:15:00 [facility] present 11:15: [id number] 00 Cardio hypertensio Cardiovasc Resolve 2018-052019-02-19 Narciso hernandez d 0-04 14:00:00 Olya 11:50: [id number] 00 Respiratory smoker Respirator Resolve 2018-052019-02-19 Gigie y d 0-07 14:00:00 [facility] 11:30: [id number] 00 Safety risk for Safety Resolve 2018-052019-03-12 Madelaine landon d 009 15:00:00 Ingrahm tion 14:00: [id number] 00 Cardio hypertensio Cardiovasc Resolve 2018-052019-03-19 Cher[facility] n ular d 0-18 14:00:00 Olya 12:30: [id number] 00 Respiratory smoker Respirator Resolve 2018-052019-03-12 [facility] y d 0-18 15:00:00 [facility] 12:30: [id number] 00 Elimination urinary Eliminatio Resolve 2018-052019-03-12 [facility] urgency n d 0-18 15:00:00 Olya 12:30: [id number] 00 Respiratory smoker Respirator Resolve 2018-052019-03-19 [facility] y d 1-04 14:00:00 Olya 09:40: [id number] 00 Elimination urinary Eliminatio Resolve 2018-052019-03-19 [facility] urgency n d 1-04 14:00:00 [facility] 09:40: [id number] 00 Safety risk for Safety Resolve 2018-052019-03-31 [facility] hospitaliza d 1-04 15:30:00 [facility] tion 09:40: [id number] 00 Safety fall risk Safety Resolve 2018-052019-03-31 Madelaine factor d 1-06 15:30:00 Ingrahm present 14:00: [id number] 00 Elimination urinary Eliminatio Resolve 2018-052019-03-31 Madelaine incontinenc n d 1-13 15:30:00 Ingrahm e 15:30: [id number] 00 Respiratory smoker Respirator Resolve 2018-052019-03-31 [facility] y d 1-15 15:30:00 [facility] 10:55: [id number] 00 Elimination urinary Eliminatio Resolve 2018-052019-03-31 [facility] urgency n d 1-15 15:30:00 [facility] 10:55: [id number] 00 Neuro depressive Neuro/Emot Resolve 2018-052019-03-31 [facility] feelings ion d 115 15:30:00 [facility] present 10:55: [id number] 00 Neuro impaired Neuro/Emot Resolve 2018-052019-03-31 [facility] decision-ma ion d 115 15:30:00 Olya wilver 10:55: [id number] 00 Safety sanitation Safety Resolve 2018-052019-03-31 Cher[facility] hazards d 1-15 15:30:00 Olya present 10:55: [id number] 00 Cardio hypertensio Cardiovasc Active 2018-05 [facility] n ular 06-07 Olya 11:30: [id number] 00 Respiratory smoker Respirator Active 2018-05 [facility] y 06-16 Olya 14:05: [id number] 00 Elimination urinary Eliminatio Active 2018-05 [facility] incontinenc n 06-16 Olya e 14:05: [id number] 00 Elimination urinary Eliminatio Active 2018-05 [facility] urgency n 06-16 Olya 14:05: [id number] 00 Neuro depressive Neuro/Emot Active 2018-05 [facility] feelings ion 06-16 [facility] present 14:05: [id number] 00 Neuro impaired Neuro/Emot Active 2018-05 [facility] decision-ma ion 06-16 [facility] 14:05: [id number] 00 Allergies, Adverse Reactions, Alerts Allergy Allergy [...] Unknown Unknown 20 mg 20 mg 01-26 ,[place] tablet tablet losartan losartan 2017- No [place] Unknown Unknown 100 mg 100 mg 01-26 ,[place] tablet tablet metFORMIN metFORMIN No [place] Unknown Unknown 1,000 mg 1,000 mg 01-26 ,[place] tablet tablet Dulera 200 Dulera 200 2018- [...]
--- OUTSIDE RECORDS SUMMARY | 2019-05-09 12:28 | XMS REPORT ---
:1965 Author Organization [facility] Care Team Providers Name Role Phone Unavailable Unavailable Unavailable Problems Condition Condition Condition Status Onset Resolution Last Treating Comments Name Details Category Date Date Treatment Clinician Date Infection Infection Diagnosis Active Madelaine of of 01-26 Ingrm amputation amputation [id number] stump, left stump, left lower lower extremity extremity Methicillin Methicillin Diagnosis Active Madelaine resis staph resis staph 01-26 Ingrm infct infct [id number] causing causing diseases diseases classd classd elswhr elswhr Type 2 Type 2 Diagnosis Active Madelaine diabetes diabetes 05-14 [facility] mellitus mellitus [id number] with with diabetic diabetic neuropathy, neuropathy, unsp unsp Essential Essential Diagnosis Active Madelaine (primary) (primary) 05-14 [facility] hypertensio hypertensio [id number] n n Chronic Chronic Diagnosis Active Madelaine obstructive obstructive 05-14 [facility] pulmonary pulmonary [id number] disease, disease, unspecified unspecified G47.33 G47.33 Diagnosis Active Madelaine 05-14 Ingra[facility] [id number] Pain frequent Pain Mgmt Resolve 2018-06-14 Darya pain d 01-26 14:43:00 (Tejas) 09:45: Analilia 00 [id number] Cardio edema Cardiovasc Resolve 2018-02-18 Darya ular d 01-26 13:35:00 (Tejas) 09:45: Analilia 00 [id number] Cardio knowledge/s Cardiovasc Resolve 2018-02-18 Darya kill ular d 01-26 13:35:00 (Tejas) deficit: pt 09:45: Analilia 00 [id number] Respiratory dyspnea Respirator Resolve 2018-04-24 Darya present y d 01-26 15:19:00 (Tejas) 09:45: Analilia 00 [id number] Respiratory CPAP Respirator Resolve 2018-04-24 Quality treatments y d 9-15 15:19:00 Realtime7 in home 09:45: 00 Endo/Sen diabetic Endo/Sen Resolve 2018-02-25 Darya foot care d 9-15 14:00:00 (Tejas) 09:45: Billingsley [id number] Integument surgical Integument Resolve 2018-03-25 Darya wound d 9-15 14:35:00 (Tejas) present 09:45: Billingsley [id number] Integument skin Integument Resolve 2018-03-25 Darya integrity d 9-15 14:35:00 (Tejas) risk 09:45: Billingsley [id number] Integument other wound Integument Resolve 2018-03-25 Quality present d 9-15 14:35:00 Realtime7 09:45: 00 Nutrition nutritional Nutrition Resolve 2018-03-15 Darya restriction d 9-15 15:24:00 (Tejas) s 09:45: Billingsley [id number] Elimination urinary Eliminatio Resolve 2018-03-01 Darya incontinenc n d 9-15 09:00:00 (Tejas) e 09:45: Billingsley 00 [id number] Neuro confusion Neuro/Emot Resolve 2018-11-11 Darya present ion d 9-15 14:00:00 (Tejas) 09:45: Billingsley 00 [id number] Neuro anxiety Neuro/Emot Resolve 2018-11-11 Darya present ion d 9-15 14:00:00 (Tejas) 09:45: Billingsley [id number] Activity ADL Activity Resolve 2018-11-11 Darya assistance d 9-15 14:00:00 (Tejas) required 09:45: Billingsley [id number] Safety sanitation Safety Resolve 2018-10-25 Darya hazards d 9-15 15:10:00 (Tejas) present 09:45: Billingsley [id number] Safety fall risk Safety Resolve 2018-10-25 Darya factor d 9-15 15:10:00 (Tejas) present 09:45: Billingsley [id number] Safety risk for Safety Resolve 2018-10-25 Darya hospitaliza d 9-15 15:10:00 (Tejas) tion 09:45: Billingsley 00 [id number] Safety can be left Safety Resolve 2018-11-11 Darya alone for d 9-15 14:00:00 (Tejas) only short 09:45: Billingsley periods 00 [id number] Medication oral med Meds Resolve 2018-03-15 Darya assistance d 9-15 15:24:00 (Tejas) required 09:45: Billingsley [id number] Medication knowledge/s Meds Resolve 2018-03-15 Darya kill d 9-15 15:24:00 (Tejas) deficit: pt 09:45: Billingsley [id number] Medication potential Meds Resolve 2018-03-15 Darya clinically d 9-15 15:24:00 (Tejas) significant 09:45: Billingsley medication [id number] issue Musculoskel transfer Musculoske Unknown Quality etal assistance letal 01-26 Realtime7 required 09:45: 00 Sensory impaired Sensory Resolve 2018-11-11 Quality verbal d 917 14:00:00 Realtime7 communicati 14:00: on 24 Endo/Sen glucose Endo/Sen Resolve 2018-02-25 Cherrise tolerance d 01-31 14:00:00 [place] problem 13:25: [id number] 00 Nutrition knowledge/s Nutrition Resolve 2018-03-15 Cherrise kill d 01-31 15:24:00 Olya deficit: pt 13:25: [id number] 00 Elimination urinary Eliminatio Resolve 2018-03-01 Cherrise urgency n d 01-31 09:00:00 [place] 13:25: [id number] 00 Elimination urinary Eliminatio Resolve 2018-03-01 Cherrise frequency n d 01-31 09:00:00 Olya 13:25: [id number] 00 Neuro impaired Neuro/Emot Resolve 2018-11-11 Cherrise decision-ma ion d 01-31 14:00:00 [place] wilver 13:25: [id number] 00 Musculoskel requires Musculoske Unknown Cherrise etal human letal 9-20 Olya assist to 13:25: [id number] leave home 00 Cardio hypertensio Cardiovasc Resolve 2018-02-18 Cherrise n ular d 9-24 13:35:00 Olya 13:05: [id number] 00 Musculoskel requires Musculoske Unknown 2017-05 Cherrise etal human letal 0-05 [place] assist to 13:40: [id number] leave home 00 Cardio hypertensio Cardiovasc Resolve 2017-052018-03-25 Cherrise n ular d 0-12 14:35:00 [place] 12:45: [id number] 00 Respiratory smoker Respirator Resolve 2017-052018-04-24 Cherrise y d 0-12 15:19:00 [place] 12:45: [id number] 00 Musculoskel transfer Musculoske Unknown 2017-05 Cherrise etal assistance letal 0-12 Olya required 12:45: [id number] 00 Endo/Sen glucose Endo/Sen Resolve 2017-052018-03-22 Cherrise tolerance d 0-22 15:29:00 Loya problem 13:50: [id number] 00 Elimination urinary Eliminatio Resolve 2017-052018-03-15 Cherrise incontinenc n d 0-22 15:24:00 Olya e 13:50: [id number] 00 Elimination urinary Eliminatio Resolve 2017-052018-03-15 Cherrise urgency n d 0-22 15:24:00 Olya 13:50: [id number] 00 Elimination urinary Eliminatio Resolve 2017-052018-03-15 Cherrise frequency n d 0-22 15:24:00 [place] 13:50: [id number] 00 Endo/Sen glucose Endo/Sen Resolve 2017-052018-03-22 Cherrise testing d 0-29 15:29:00 Olya dependence 13:30: [id number] 00 Nutrition knowledge/s Nutrition Resolve 2017-052018-03-25 Cherrise kill d 1-05 14:35:00 Olya deficit: pt 11:30: [id number] 00 Elimination urinary Eliminatio Resolve 2017-052018-03-22 Cherrise frequency n d 1-05 15:29:00 Olya 11:30: [id number] 00 Pain frequent Pain Mgmt Resolve 2017-052018-06-14 Stephany pain d 05-25 14:43:00 [place] 14:35: h [id number] 00 Nutrition nutritional Nutrition Resolve 2017-052018-03-25 Stephany restriction d 05-25 14:35:00 [place] s 14:35: h [id number] 00 Elimination urinary Eliminatio Resolve 2017-052018-04-05 Stephany incontinenc n d 05-25 14:45:00 [place] e 14:35: h [id number] 00 Elimination urinary Eliminatio Resolve 2017-052018-04-05 Stephany frequency n d 05-25 14:45:00 [place] 14:35: h [id number] 00 Musculoskel requires Musculoske Unknown 2017-05 Stephany etal special letal 05-25 [place] transportat 14:35: h [id number] ion 00 Cardio hypertensio Cardiovasc Resolve 2017-052018-04-12 Cherrise n ular d 05-27 13:46:00 Olya 12:00: [id number] 00 Endo/Sen glucose Endo/Sen Resolve 2017-052018-04-05 Cherrise tolerance d 05-27 14:45:00 [place] problem 12:00: [id number] 00 Elimination urinary Eliminatio Resolve 2017-052018-04-05 Cherrise urgency n d 06-01 14:45:00 [place] 12:45: [id number] 00 Elimination urinary Eliminatio Resolve 2017-052018-04-12 Cherrise urgency n d 06-08 13:46:00 [place] 10:55: [id number] 00 Elimination urinary Eliminatio Resolve 2017-052018-04-12 Cherrise frequency n d 06-08 13:46:00 Olya 10:55: [id number] 00 Endo/Sen glucose Endo/Sen Resolve 2017-052018-04-24 Cherrise tolerance d 06-16 15:19:00 [place] problem 12:20: [id number] 00 Elimination urinary Eliminatio Resolve 2017-052018-04-24 Cherrise frequency n d 06-16 15:19:00 Olya 12:20: [id number] 00 Cardio hypertensio Cardiovasc Resolve 2017-052018-04-24 Cherrise n ular d 2- 15:19:00 Olya 10:35: [id number] 00 Elimination urinary Eliminatio Resolve 2017-052018-04-24 Cherrise urgency n d 2 15:19:00 [place] 10:35: [id number] 00 Elimination urinary Eliminatio Resolve 2017-052018-04-24 Stephany incontinenc n d 06-25 15:19:00 [place] 15:19: h [id number] 00 Cardio hypertensio Cardiovasc Resolve 2017-052018-06-07 Cherrise n ular d 2-14 13:31:00 [place] 13:15: [id number] 00 Respiratory dyspnea Respirator Active 2017-05 Cherrise present y 06-27 [place] 13:15: [id number] 00 Respiratory CPAP Respirator Active 2017-05 Cherrise treatments y 06-27 [place] in home 13:15: [id number] 00 Respiratory smoker Respirator Resolve 2017-052018-06-03 Cherrise y d 2-14 14:08:00 [place] 13:15: [id number] 00 Elimination urinary Eliminatio Resolve 2017-052018-05-31 Cherrise urgency n d 2-14 14:21:00 [place] 13:15: [id number] 00 Elimination urinary Eliminatio Resolve 2017-052018-05-31 Cherrise frequency n d 2-14 14:21:00 Olya 13:15: [id number] 00 Elimination diarrhea Eliminatio Resolve 2017-052018-05-31 Cherrise n d 2-14 14:21:00 Olya 13:15: [id number] 00 Endo/Sen glucose Endo/Sen Resolve 2017-052018-05-31 Cherrise tolerance d 2-24 14:21:00 [place] problem 13:10: [id number] 00 Infection s/s of Infection Active Stephany infection 05-31 [place] 14:21: h [id number] 00 Respiratory smoker Respirator Resolve 2018-09-13 Cherrise y d 06-05 13:20:00 Olya 13:35: [id number] 00 Endo/Sen glucose Endo/Sen Resolve 2018-06-21 Cherrise tolerance d 06-05 10:26:00 Olya problem 13:35: [id number] 00 Elimination urinary Eliminatio Resolve 2018-06-14 Cherrise urgency n d 06-05 14:43:00 Olya 13:35: [id number] 00 Elimination urinary Eliminatio Resolve 2018-06-14 Cherrise frequency n d 06-05 14:43:00 Olya 13:35: [id number] 00 Cardio hypertensio Cardiovasc Resolve 2018-09-13 Cherrise n ular d 06-10 13:20:00 [place] 11:00: [id number] 00 Elimination urinary Eliminatio Resolve 2018-06-21 Cherrise urgency n d 06-19 10:26:00 [place] 10:50: [id number] 00 Elimination urinary Eliminatio Resolve 2018-06-21 Stephany frequency n d 06-21 10:26:00 [place] 10:26: h [id number] 00 Endo/Sen glucose Endo/Sen Resolve 2018-06-28 Cherrise tolerance d 2- 14:32:00 Olya problem 11:25: [id number] 00 Elimination urinary Eliminatio Resolve 2018-06-28 Cherrise urgency n d 2- 14:32:00 [place] 11:25: [id number] 00 Elimination urinary Eliminatio Resolve 2018-06-28 Cherrise frequency n d 2- 14:32:00 Olya 11:50: [id number] 00 Endo/Sen glucose Endo/Sen Resolve 2018-07-12 Cherrise tolerance d 07-03 13:43:00 [place] problem 11:50: [id number] 00 Elimination urinary Eliminatio Resolve 2018-07-12 Cherrise urgency n d 07-08 13:43:00 Olya 12:30: [id number] 00 Neuro depressive Neuro/Emot Resolve 2018-11-11 Cherrise feelings ion d 2 14:00:00 [place] present 12:30: [id number] 00 Elimination urinary Eliminatio Resolve 2018-07-12 Cherrise frequency n d 2-27 13:43:00 [place] 10:45: [id number] 00 Elimination urinary Eliminatio Resolve 2018-07-24 Stephany frequency n d 3-06 12:48:00 [place] 11:53: h [id number] 00 Endo/Sen glucose Endo/Sen Resolve 2018-09-18 Cherrise tolerance d 3-11 10:59:00 Olya problem 10:15: [id number] 00 Elimination urinary Eliminatio Resolve 2018-07-24 Cherrise urgency n d 3-11 12:48:00 Olya 10:15: [id number] 00 Pain frequent Pain Mgmt Resolve 2018-07-24 Stephany pain d 3-13 12:48:00 [place] 12:48: h [id number] 00 Elimination urinary Eliminatio Resolve 2018-09-13 Cherrise urgency n d 3-15 13:20:00 [place] 12:40: [id number] 00 Musculoskel requires Musculoske Unknown Cherrise etal human letal 3-15 [place] assist to 12:40: [id number] leave home 00 Respiratory lung sounds Respirator Resolve 2018-09-13 Christel deficit y d - 13:20:00 Jeb 15:19: [id number] 00 Safety fire risk Safety Resolve 2018-10-25 Christel present d 3 15:10:00 Jeb 15:19: [id number] 00 Elimination urinary Eliminatio Resolve 2018-09-13 Cherrise frequency n d 4-08 13:20:00 [place] 12:50: [id number] 00 Integument surgical Integument Active Cherrise wound 4-24 Olya present 11:45: [id number] 00 Integument skin Integument Active Cherrise integrity 4-24 Olya risk 11:45: [id number] 00 Integument other wound Integument Active Cherrise present 4- Olya 11:45: [id number] 00 Nutrition knowledge/s Nutrition Active Cherrise kill 09-04 [place] deficit: pt 11:45: [id number] 00 Nutrition nutritional Nutrition Active Cherrise restriction 09-04 Olya s 11:45: [id number] 00 Musculoskel transfer Musculoske Resolve 2018-10-25 Cherrise etal assistance letal d 09-04 15:10:00 [place] required 11:45: [id number] 00 Musculoskel requires Musculoske Resolve 2018-10-25 Cherrise etal human letal d 09-04 15:10:00 [place] assist to 11:45: [id number] leave home 00 Elimination constipatio Eliminatio Resolve 2018-09-13 Cherrise n n d 09-09 13:20:00 Olya 14:10: [id number] 00 Pain frequent Pain Mgmt Resolve 2018-10-25 Madelaine pain d 08 [facility] 10[facility]: [id number] 00 Respiratory smoker Respirator Resolve 2018-10-25 Cherrise y d - 15:10:00 Olya 11:50: [id number] 00 Elimination urinary Eliminatio Resolve 2018-10-25 Cherrise urgency n d - 15:10:00 Olya 11:50: [id number] 00 Cardio hypertensio Cardiovasc Resolve 2018-11-11 Cherrise n ular d 10-09 14:00:00 [place] 11:20: [id number] 00 Endo/Sen glucose Endo/Sen Resolve 2018-10-25 Cherrise tolerance d 10-09 15:10:00 Olya problem 11:20: [id number] 00 Elimination urinary Eliminatio Resolve 2018-10-25 Conchita frequency n d 10-16 15:10:00 Shimon, 14:00: [id number] 00 Cardio edema Cardiovasc Resolve 2018-11-11 Cherrise ular d 6- 14:00:00 [place] 11:00: [id number] 00 Safety risk for Safety Resolve 2018-11-01 Conchita hospitaliza d 6-17 14:00:00 daniel Robins 14:30: [id number] 00 Respiratory smoker Respirator Resolve 2018-11-11 Cherrise y d 6-19 14:00:00 Olya 10:25: [id number] 00 Endo/Sen glucose Endo/Sen Resolve 2018-11-11 Cherrise tolerance d 6-19 14:00:00 [place] problem 10:25: [id number] 00 Elimination urinary Eliminatio Resolve 2018-11-11 Cherrise urgency n d 6-19 14:00:00 Olya 10:25: [id number] 00 Elimination urinary Eliminatio Resolve 2018-11-11 Cherrise frequency n d 6-19 14:00:00 Olya 10:25: [id number] 00 Musculoskel requires Musculoske Resolve 2018-12-23 Cherrise etal human letal d 6- 11:00:00 Olya assist to 10:25: [id number] leave home 00 Musculoskel requires Musculoske Resolve 2018-12-23 Kerry etal special letal d 6- 11:00:00 Maria Antonia transportat 18:30: [id number] ion 00 Safety fall risk Safety Resolve 2018-12-13 Cherrise factor d 7- 14:40:00 Olya present 14:45: [id number] 00 Neuro impaired Neuro/Emot Resolve 2018-12-13 Madelaine mullen ion d 7- 14:40:00 Jose Angel pettit 14:00: [id number] 00 Safety risk for Safety Resolve 2018-12-13 Madelaine garciaiza d 7-10 14:40:00 Ingrahm tion 14:00: [id number] 00 Cardio edema Cardiovasc Resolve 2018-12-23 Cherrise ular d 7-15 11:00:00 Olya 11:00: [id number] 00 Respiratory smoker Respirator Resolve 2018-12-23 Cherrise y d 7-15 11:00:00 Olya 11:00: [id number] 00 Endo/Sen glucose Endo/Sen Resolve 2019-01-01 Cherrise tolerance d 7-15 15:00:00 Olya problem 11:00: [id number] 00 Elimination urinary Eliminatio Resolve 2018-12-13 Cherrise urgency n d 7-15 14:40:00 [place] 11:00: [id number] 00 Safety sanitation Safety Resolve 2018-12-13 Cherrise hazards d 7-15 14:40:00 [place] present 11:00: [id number] 00 Elimination urinary Eliminatio Resolve 2018-12-13 Cherrise frequency n d 7 14:40:00 Olya 11:15: [id number] 00 Neuro depressive Neuro/Emot Resolve 2019-01-17 Cherrise feelings ion d 12-02 15:25:00 Olya present 11:15: [id number] 00 Cardio hypertensio Cardiovasc Resolve 2018-12-23 Cherrise n ular d 12-04 11:00:00 [place] 14:40: [id number] 00 Musculoskel knowledge/s Musculoske Resolve 2018-12-23 Cherrise etal kill letal d 12-16 11:00:00 Olya deficit: cg 14:15: [id number] 00 Elimination urinary Eliminatio Resolve 2018-12-23 Cherrise urgency n d 12-20 11:00:00 [place] 10:10: [id number] 00 Neuro depressive Neuro/Emot Unknown Cherrise feelings ion 12-20 Olya present 10:10: [id number] 00 Neuro impaired Neuro/Emot Resolve 2019-01-17 Cherrise decision-ma ion d 12-20 15:25:00 [place] wilver 10:10: [id number] 00 Safety risk for Safety Resolve 2018-12-23 Cherrise hospitaliza d 12-20 11:00:00 Olya tion 10:10: [id number] 00 Sensory impaired Sensory Resolve 2019-01-17 Madelaine verbal d 12-23 15:25:00 Ingrahm communicati 11:00: [id number] 00 Cardio hypertensio Cardiovasc Resolve 2019-01-01 Cherrise n ular d 8-14 15:00:00 Olya 12:00: [id number] 00 Respiratory smoker Respirator Resolve 2019-01-01 Cherrise y d 8-14 15:00:00 [place] 12:00: [id number] 00 Elimination urinary Eliminatio Resolve 2019-01-01 Cherrise urgency n d 8-14 15:00:00 Olya 12:00: [id number] 00 Neuro anxiety Neuro/Emot Resolve 2019-01-17 Cherrise present ion d 8-14 15:25:00 Olya 12:00: [id number] 00 Safety risk for Safety Resolve 2019-01-01 Cherrise hospitaliza d 8-14 15:00:00 [place] tion 12:00: [id number] 00 Musculoskel requires Musculoske Unknown Cherrise etal human letal 12-25 [place] assist to 12:00: [id number] leave home 00 Respiratory smoker Respirator Resolve 2019-01-17 Cherrise y d 01-03 15:25:00 Olya 11:45: [id number] 00 Elimination urinary Eliminatio Resolve 2019-01-17 Cherrise urgency n d 01-03 15:25:00 Olya 11:45: [id number] 00 Safety fall risk Safety Resolve 2019-01-06 Cherrise factor d 8 12:25:00 [place] present 11:45: [id number] 00 Safety risk for Safety Resolve 2019-02-12 Cherrise hospitaliza d 01-03 15:15:00 Olya tion 11:45: [id number] 00 Neuro memory Neuro/Emot Resolve 2019-03-31 Cherrise deficit ion d 01-13 15:30:00 [place] needing 11:20: [id number] supervision 00 Elimination urinary Eliminatio Resolve 2019-01-17 Madelaine incontinenc n d 01-17 15:25:00 Ingrahm e 15:25: [id number] 00 Safety fall risk Safety Resolve 2019-01-17 Desiree factor d 9-06 15:25:00 Rashid present 15:25: [id number] 00 Cardio hypertensio Cardiovasc Resolve 2019-01-24 Narciso aguilar ular d 01-20 09:00:00 [place] 11:15: [id number] 00 Safety sanitation Safety Resolve 2019-02-12 Cherrise hazards d 01-20 15:15:00 [place] present 11:15: [id number] 00 Respiratory smoker Respirator Resolve 2019-01-24 Madelaine y d 01-24 09:00:00 Ingrahm 09:00: [id number] 00 Musculoskel transfer Musculoske Active Cherrise etal assistance letal 01-29 Olya required 13:25: [id number] 00 Musculoskel requires Musculoske Active Cherrise etal human letal 01-29 [place] assist to 13:25: [id number] leave home 00 Musculoskel requires Musculoske Active Cherrise etal special letal 01-29 [place] transportat 13:25: [id number] ion 00 Respiratory smoker Respirator Resolve 2019-02-05 Cherrise y d 02-03 15:10:00 [place] 10:00: [id number] 00 Elimination urinary Eliminatio Resolve 2019-02-12 Cherrise urgency n d 02-03 15:15:00 [place] 10:00: [id number] 00 Safety fall risk Safety Resolve 2019-02-12 Cherrise factor d 02-07 15:15:00 [place] present 11:15: [id number] 00 Cardio hypertensio Cardiovasc Resolve 2018-052019-02-19 Narciso hernnadez d 0-04 14:00:00 Olya 11:50: [id number] 00 Respiratory smoker Respirator Resolve 2018-052019-02-19 Gigie y d 0-07 14:00:00 Olya 11:30: [id number] 00 Safety risk for Safety Resolve 2018-052019-03-12 Madelaine landon d 009 15:00:00 Ingrahm tion 14:00: [id number] 00 Cardio hypertensio Cardiovasc Resolve 2018-052019-03-19 Cherrise n ular d 0-18 14:00:00 [place] 12:30: [id number] 00 Respiratory smoker Respirator Resolve 2018-052019-03-12 Cherrise y d 0-18 15:00:00 Olya 12:30: [id number] 00 Elimination urinary Eliminatio Resolve 2018-052019-03-12 Cherrise urgency n d 0-18 15:00:00 Olya 12:30: [id number] 00 Respiratory smoker Respirator Resolve 2018-052019-03-19 Cherrise y d 1-04 14:00:00 Olya 09:40: [id number] 00 Elimination urinary Eliminatio Resolve 2018-052019-03-19 Cherrise urgency n d 1-04 14:00:00 [place] 09:40: [id number] 00 Safety risk for Safety Resolve 2018-052019-03-31 Cherrise hospitaliza d 1-04 15:30:00 [place] tion 09:40: [id number] 00 Safety fall risk Safety Resolve 2018-052019-03-31 Madelaine factor d 1-06 15:30:00 Ingrahm present 14:00: [id number] 00 Elimination urinary Eliminatio Resolve 2018-052019-03-31 Madelaine incontinenc n d 1-13 15:30:00 Ingrahm e 15:30: [id number] 00 Respiratory smoker Respirator Resolve 2018-052019-03-31 Cherrise y d 1-15 15:30:00 [place] 10:55: [id number] 00 Elimination urinary Eliminatio Resolve 2018-052019-03-31 Cherrise urgency n d 1-15 15:30:00 [place] 10:55: [id number] 00 Neuro depressive Neuro/Emot Resolve 2018-052019-03-31 Cherrise feelings ion d 115 15:30:00 [place] present 10:55: [id number] 00 Neuro impaired Neuro/Emot Resolve 2018-052019-03-31 Cherrise decision-ma ion d 115 15:30:00 Olya wilver 10:55: [id number] 00 Safety sanitation Safety Resolve 2018-052019-03-31 Cherrise hazards d 1-15 15:30:00 [place] present 10:55: [id number] 00 Cardio hypertensio Cardiovasc Active 2018-05 Cherrise n ular 06-07 [place] 11:30: [id number] 00 Respiratory smoker Respirator Active 2018-05 Cherrise y 06-16 [place] 14:05: [id number] 00 Elimination urinary Eliminatio Active 2018-05 Cherrise incontinenc n 06-16 [place] e 14:05: [id number] 00 Elimination urinary Eliminatio Active 2018-05 Cherrise urgency n 06-16 [place] 14:05: [id number] 00 Neuro depressive Neuro/Emot Active 2018-05 Cherrise feelings ion 06-16 [place] present 14:05: [id number] 00 Neuro impaired Neuro/Emot Active 2018-05 Cherrise decision-ma ion 06-16 Olya wilver 14:05: [id number] 00 Allergies, Adverse Reactions, Alerts Allergy Allergy [...] Unknown Unknown 100 mg 100 mg 01-26 ,[place] tablet tablet metFORMIN metFORMIN No [place] Unknown Unknown 1,000 mg 1,000 mg 01-26 ,[place] tablet tablet Dulera 200 Dulera 200 2018- No [place] Unknown Unknown mcg-5 mcg-5 01-26 Kyel COVARRUBIAS mcg/actuati mcg/actuati on HFA on HFA aerosol aerosol inhaler inhaler amLODIPine amLODIPine 2017- No [place] Unknown Unknown 10 mg 10 mg 01-26 MDKyle tablet tablet lisinopril lisinopril 2017-05- No [place] Unknown Unknown 20 mg 20 mg 0- 02-15 ,Kyle tablet tablet oxyCODONE 5 oxyCODONE 5 No Rafita Unknown Unknown mg tablet mg tablet 2-07 MD,[place] lisinopril lisinopril 2018- No Rafita Unknown Unknown 20 mg 20 mg -28 06- MD,[place] tablet tablet lisinopril lisinopril No Rafita Unknown Unknown 30 mg 30 mg 2-15 MD,[place] tablet tablet hydroCHLORO hydroCHLORO No Rafita Unknown Unknown thiazide 50 thiazide 50 6-15 ,[place] mg tablet mg tablet nystatin nystatin No Rafita Unknown Unknown 100,000 100,000 6 ,[place] unit/gram unit/gram topical topical ointment ointment sulfamethox sulfamethox 2018- No Heather Unknown Unknown azole 800 azole 800 11-04 07- ,Adam A mg-trimetho mg-trimetho prim 160 mg prim 160 mg tablet tablet Symbicort Symbicort No Rafita Unknown Unknown 160 mcg-4.5 160 mcg-4.5 7-16 Simona COVARRUBIAS mcg/actuati mcg/actuati on HFA on HFA aerosol aerosol inhaler inhaler Vital Signs Vital Name Observation Time Observation Value Comments SYSTOLIC mm[Hg] 2019-04-15 18:09:10 122 mm[Hg] mm[Hg] Method: Sit SYSTOLIC mm[Hg] 1840-05-13 00:00:00 127 mm[Hg] mm[Hg] Method: Lie DIASTOLIC mm[Hg] 2019-04-15 18:09:10 77 mm[Hg] mm[Hg] Method: Sit DIASTOLIC mm[Hg] 1840-05-13 00:00:00 83 mm[Hg] mm[Hg] Method: Lie PULSE 2019-04-15 18:09:10 117 /min /min RESP RATE 2019-04-15 18:09:10 16 /min /min TEMP 2019-04-15 18:09:10 97.2 [degF] Procedures This patient has no known procedures. Results This patient has no known results.
--- OUTSIDE RECORDS SUMMARY | 2019-05-09 12:28 | XMS REPORT ---
:1965 Author Organization [facility] Care Team Providers Name Role Phone Unavailable Unavailable Unavailable Problems Condition Condition Condition Status Onset Resolution Last Treating Comments Name Details Category Date Date Treatment Clinician Date Infection Infection Diagnosis Active Madelaine of of 01-26 Ingrahm amputation amputation [id number] stump, left stump, left lower lower extremity extremity Methicillin Methicillin Diagnosis Active Madelaine resis staph resis staph 01-26 Ingrahm infct infct [id number] causing causing diseases diseases classd classd elswhr elswhr Type 2 Type 2 Diagnosis Active Madelaine diabetes diabetes 05-14 Ingrahm mellitus mellitus [id number] with with diabetic diabetic neuropathy, neuropathy, unsp unsp Essential Essential Diagnosis Active Madelaine (primary) (primary) 05-14 Ingrahm hypertensio hypertensio [id number] n n Chronic Chronic Diagnosis Active Madelaine obstructive obstructive 05-14 Ingrahm pulmonary pulmonary [id number] disease, disease, unspecified unspecified Obstructive Obstructive Diagnosis Active Madelaine sleep apnea sleep apnea 05-14 Ingrahm (adult) (adult) [id number] (pediatric) (pediatric) Chronic Chronic Diagnosis Active Madelaine pain pain 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 Morbid Morbid Diagnosis Active Madelaine (severe) (severe) Ingrahm obesity due obesity due [id number] to excess to excess calories calories Type 2 Type 2 Diagnosis Active Madelaine diabetes diabetes Ingrahm mellitus mellitus [id number] with other with other specified specified complicatio complicatio n n Personal Personal Diagnosis Active Madelaine history of history of Ingrahm other other [id number] diseases of diseases of the the musculoskel musculoskel etal system etal system and and connective connective tissue tissue residential residential Diagnosis Active Madelaine (current) (current) Ingrahm use of oral use of oral [id number] hypoglycemi hypoglycemi c drugs c drugs Pain frequent Pain Mgmt Resolve 2018-06-14 Darya pain d 9-15 14:43:00 (Tejas) 09:45: Billingsley [id number] Cardio edema Cardiovasc Resolve 2018-02-18 Darya ular d 9-15 13:35:00 (Tejas) 09:45: Billingsley [id number] Cardio knowledge/s Cardiovasc Resolve 2018-02-18 Darya kill ular d 15 13:35:00 (Tejas) deficit: pt 09:45: Billingsley [id number] Respiratory dyspnea Respirator Resolve 2018-04-24 Darya present y d 9-15 15:19:00 (Tejas) 09:45: Billingsley [id number] Respiratory CPAP Respirator Resolve 2018-04-24 Quality treatments y d 9-15 15:19:00 Realtime7 in home 09:45: 00 Endo/Sen diabetic Endo/Sen Resolve 2018-02-25 Darya foot care d 915 14:00:00 (Tejas) 09:45: Billingsley [id number] Integument surgical Integument Resolve 2018-03-25 Darya wound d 915 14:35:00 (Tejas) present 09:45: Billingsley [id number] Integument skin Integument Resolve 2018-03-25 Darya integrity d 15 14:35:00 (Tejas) risk 09:45: Billingsley [id number] Integument other wound Integument Resolve 2018-03-25 Quality present d 9-15 14:35:00 Realtime7 09:45: 00 Nutrition nutritional Nutrition Resolve 2018-03-15 Darya restriction d 915 15:24:00 (Tejas) s 09:45: Billingsley [id number] Elimination urinary Eliminatio Resolve 2018-03-01 Darya incontinenc n d 915 09:00:00 (Tejas) e 09:45: Billingsley 00 [id number] Neuro confusion Neuro/Emot Resolve 2018-11-11 Darya present ion d 9-15 14:00:00 (Tejas) 09:45: Billingsley [id number] Neuro anxiety Neuro/Emot Resolve 2018-11-11 Darya present ion d 9-15 14:00:00 (Tejas) 09:45: Billingsley [id number] Activity ADL Activity Resolve 2018-11-11 Darya assistance d 9-15 14:00:00 (Tejas) required 09:45: Billingsley [id number] Safety sanitation Safety Resolve 2018-10-25 Darya hazards d 9-15 15:10:00 (Tejas) present 09:45: Billingsley [id number] Safety fall risk Safety Resolve 2018-10-25 Darya factor d 9-15 15:10:00 (Tejas) present 09:45: Billingsley [id number] Safety risk for Safety Resolve 2018-10-25 Darya hospitaliza d 9-15 15:10:00 (Tejas) tion 09:45: Billingsley [id number] Safety can be left Safety Resolve 2018-11-11 Darya alone for d 9-15 14:00:00 (Tejas) only short 09:45: Billingsley 00 [id number] Medication oral med Meds Resolve 2018-03-15 Darya assistance d 9-15 15:24:00 (Tejas) required 09:45: Billingsley [id number] Medication knowledge/s Meds Resolve 2018-03-15 Darya kill d 9-15 15:24:00 (Tejas) deficit: pt 09:45: Billingsley [id number] Medication potential Meds Resolve 2018-03-15 Darya clinically d 9-15 15:24:00 (Tejas) significant 09:45: Billingsley medication 00 [id number] issue Musculoskel transfer Musculoske Unknown Quality etal assistance letal 15 Realtime7 required 09:45: 00 Sensory impaired Sensory Resolve 2018-11-11 Quality verbal d 9-17 14:00:00 Realtime7 communicati 14:00: on 24 Endo/Sen glucose Endo/Sen Resolve 2018-02-25 Cherrise tolerance d 9-20 14:00:00 Olya problem 13:25: [id number] Nutrition knowledge/s Nutrition Resolve 2018-03-15 Cherrise kill d 9-20 15:24:00 Olya deficit: pt 13:25: [id number] 00 Elimination urinary Eliminatio Resolve 2018-03-01 Cherrise urgency n d 01-31 09:00:00 Olya 13:25: [id number] 00 Elimination urinary Eliminatio Resolve 2018-03-01 Cherrise frequency n d 01-31 09:00:00 Olya 13:25: [id number] 00 Neuro impaired Neuro/Emot Resolve 2018-11-11 Cherrise decision-ma ion d 01-31 14:00:00 [place] wilver 13:25: [id number] 00 Musculoskel requires Musculoske Unknown Cherrise etal human letal 01-31 Olya assist to 13:25: [id number] leave home 00 Cardio hypertensio Cardiovasc Resolve 2018-02-18 Cherrise n ular d 02-04 13:35:00 [place] 13:05: [id number] 00 Musculoskel requires Musculoske Unknown 2017-05 Cherrise etal human letal 0 Olya assist to 13:40: [id number] leave home 00 Cardio hypertensio Cardiovasc Resolve 2017-052018-03-25 Cherrisalba n ular d 0-12 14:35:00 [place] 12:45: [id number] 00 Respiratory smoker Respirator Resolve 2017-052018-04-24 Cherrise y d 0-12 15:19:00 Olya 12:45: [id number] 00 Musculoskel transfer Musculoske Unknown 2017-05 Cherrise etal assistance letal 0-12 [place] required 12:45: [id number] 00 Endo/Sen glucose Endo/Sen Resolve 2017-052018-03-22 Cherrise tolerance d 0-22 15:29:00 [place] problem 13:50: [id number] 00 Elimination urinary Eliminatio Resolve 2017-052018-03-15 Cherrise incontinenc n d 0-22 15:24:00 [place] e 13:50: [id number] 00 Elimination urinary Eliminatio Resolve 2017-052018-03-15 Cherrise urgency n d 0-22 15:24:00 Olya 13:50: [id number] 00 Elimination urinary Eliminatio Resolve 2017-052018-03-15 Cherrise frequency n d 0- 15:24:00 [place] 13:50: [id number] 00 Endo/Sen glucose Endo/Sen Resolve 2017-052018-03-22 Cherrise testing d 0- 15:29:00 Olya dependence 13:30: [id number] 00 Nutrition knowledge/s Nutrition Resolve 2017-052018-03-25 Cherrise kill d 05-18 14:35:00 Olya deficit: pt 11:30: [id number] 00 Elimination urinary Eliminatio Resolve 2017-052018-03-22 Cherrise frequency n d 05-18 15:29:00 Olya 11:30: [id number] 00 Pain frequent Pain Mgmt Resolve 2017-052018-06-14 Stephany pain d 05-25 14:43:00 [place] 14:35: h [id number] 00 Nutrition nutritional Nutrition Resolve 2017-052018-03-25 Stephany restriction d 05-25 14:35:00 [place] s 14:35: h [id number] 00 Elimination urinary Eliminatio Resolve 2017-052018-04-05 Stephany incontinenc n d 05-25 14:45:00 [place]os e 14:35: h [id number] 00 Elimination urinary Eliminatio Resolve 2017-052018-04-05 Stephany frequency n d 05-25 14:45:00 [place] 14:35: h [id number] 00 Musculoskel requires Musculoske Unknown 2017-05 Stephany etal special letal 05-25 [place]-[facility]os transportat 14:35: h [id number] ion 00 Cardio hypertensio Cardiovasc Resolve 2017-052018-04-12 Cherrise n ular d - 13:46:00 [place] 12:00: [id number] 00 Endo/Sen glucose Endo/Sen Resolve 2017-052018-04-05 Cherrise tolerance d 05-27 14:45:00 Olya problem 12:00: [id number] 00 Elimination urinary Eliminatio Resolve 2017-052018-04-05 Cherrise urgency n d 06-01 14:45:00 Olya 12:45: [id number] 00 Elimination urinary Eliminatio Resolve 2017-052018-04-12 Cherrise urgency n d 06-08 13:46:00 [place] 10:55: [id number] 00 Elimination urinary Eliminatio Resolve 2017-052018-04-12 Cherrise frequency n d 06-08 13:46:00 Olya 10:55: [id number] 00 Endo/Sen glucose Endo/Sen Resolve 2017-052018-04-24 Cherrise tolerance d 06-16 15:19:00 Olya problem 12:20: [id number] 00 Elimination urinary Eliminatio Resolve 2017-052018-04-24 Cherrise frequency n d 06-16 15:19:00 Olya 12:20: [id number] 00 Cardio hypertensio Cardiovasc Resolve 2017-052018-04-24 Cherrise n ular d 2 15:19:00 Olya 10:35: [id number] 00 Elimination urinary Eliminatio Resolve 2017-052018-04-24 Cherrise urgency n d 2 15:19:00 [place] 10:35: [id number] 00 Elimination urinary Eliminatio Resolve 2017-052018-04-24 Stephany incontinenc n d 06-25 15:19:00 [place] e 15:19: h [id number] 00 Cardio hypertensio Cardiovasc Resolve 2017-052018-06-07 Cherrise n ular d 2-14 13:31:00 [place] 13:15: [id number] 00 Respiratory dyspnea Respirator Active 2017-05 Cherrise present y 2- Olya 13:15: [id number] 00 Respiratory CPAP Respirator Active 2017-05 Cherrise treatments y 2-14 [place] in home 13:15: [id number] 00 Respiratory smoker Respirator Resolve 2017-052018-06-03 Cherrise y d 2-14 14:08:00 Olya 13:15: [id number] 00 Elimination urinary Eliminatio Resolve 2017-052018-05-31 Cherrise urgency n d 2-14 14:21:00 [place] 13:15: [id number] 00 Elimination urinary Eliminatio Resolve 2017-052018-05-31 Cherrise frequency n d 2-14 14:21:00 Olya 13:15: [id number] 00 Elimination diarrhea Eliminatio Resolve 2017-052018-05-31 Cherrise n d 2-14 14:21:00 [place] 13:15: [id number] 00 Endo/Sen glucose Endo/Sen Resolve 2017-052018-05-31 Cherrise tolerance d 07-07 14:21:00 Olya problem 13:10: [id number] 00 Infection s/s of Infection Active Stephany infection 05-31 [place] 14:21: h [id number] 00 Respiratory smoker Respirator Resolve 2018-09-13 Cherrise y d 06-05 13:20:00 [place] 13:35: [id number] 00 Endo/Sen glucose Endo/Sen Resolve 2018-06-21 Cherrise tolerance d 06-05 10:26:00 Olya problem 13:35: [id number] 00 Elimination urinary Eliminatio Resolve 2018-06-14 Cherrise urgency n d 06-05 14:43:00 [place] 13:35: [id number] 00 Elimination urinary Eliminatio Resolve 2018-06-14 Cherrise frequency n d 06-05 14:43:00 Olya 13:35: [id number] 00 Cardio hypertensio Cardiovasc Resolve 2018-09-13 Cherrise n ular d 06-10 13:20:00 [place] 11:00: [id number] 00 Elimination urinary Eliminatio Resolve 2018-06-21 Cherrise urgency n d 06-19 10:26:00 [place] 10:50: [id number] 00 Elimination urinary Eliminatio Resolve 2018-06-21 Stephany frequency n d 06-21 10:26:00 [place] 10:26: h [id number] 00 Endo/Sen glucose Endo/Sen Resolve 2018-06-28 Cherrise tolerance d 06-24 14:32:00 [place] problem 11:25: [id number] 00 Elimination urinary Eliminatio Resolve 2018-06-28 Cherrise urgency n d 2-11 14:32:00 [place] 11:25: [id number] 00 Elimination urinary Eliminatio Resolve 2018-06-28 Cherrise frequency n d 2-13 14:32:00 [place] 11:50: [id number] 00 Endo/Sen glucose Endo/Sen Resolve 2018-07-12 Cherrise tolerance d 2- 13:43:00 Olya problem 11:50: [id number] 00 Elimination urinary Eliminatio Resolve 2018-07-12 Cherrise urgency n d 2 13:43:00 Olya 12:30: [id number] 00 Neuro depressive Neuro/Emot Resolve 2018-11-11 Cherrise feelings ion d 2 14:00:00 Olya present 12:30: [id number] 00 Elimination urinary Eliminatio Resolve 2018-07-12 Cherrise frequency n d 2 13:43:00 Olya 10:45: [id number] 00 Elimination urinary Eliminatio Resolve 2018-07-24 Stephany frequency n d 3-06 12:48:00 [place] 11:53: h [id number] 00 Endo/Sen glucose Endo/Sen Resolve 2018-09-18 Cherrise tolerance d 3-11 10:59:00 [place] problem 10:15: [id number] 00 Elimination urinary Eliminatio Resolve 2018-07-24 Cherrise urgency n d 3-11 12:48:00 Olya 10:15: [id number] 00 Pain frequent Pain Mgmt Resolve 2018-07-24 Stephany pain d 3-13 12:48:00 [place] 12:48: h [id number] 00 Elimination urinary Eliminatio Resolve 2018-09-13 Cherrise urgency n d 3-15 13:20:00 Olya 12:40: [id number] 00 Musculoskel requires Musculoske Unknown Cherrise etal human letal 07-26 [place] assist to 12:40: [id number] leave home 00 Respiratory lung sounds Respirator Resolve 2018-09-13 Christel deficit y d 3- 13:20:00 Jeb 15:19: [id number] 00 Safety fire risk Safety Resolve 2018-10-25 Christel present d 08-09 15:10:00 Jeb 15:19: [id number] 00 Elimination urinary Eliminatio Resolve 2018-09-13 Cherrise frequency n d 08-19 13:20:00 Olya 12:50: [id number] 00 Integument surgical Integument Active Cherrise wound 09-04 [place] present 11:45: [id number] 00 Integument skin Integument Active Cherrise integrity 09-04 [place] risk 11:45: [id number] 00 Integument other wound Integument Active Cherrise present 09-04 [place] 11:45: [id number] 00 Nutrition knowledge/s Nutrition Active Cherrise kill 09-04 Olya deficit: pt 11:45: [id number] 00 Nutrition nutritional Nutrition Active Cherrise restriction 09-04 Olya s 11:45: [id number] 00 Musculoskel transfer Musculoske Resolve 2018-10-25 Cherrise etal assistance letal d 09-04 15:10:00 [place] required 11:45: [id number] 00 Musculoskel requires Musculoske Resolve 2018-10-25 Cherrise etal human letal d 09-04 15:10:00 [place] assist to 11:45: [id number] leave home 00 Elimination constipatio Eliminatio Resolve 2018-09-13 Cherrise n n d 09-09 13:20:00 Olya 14:10: [id number] 00 Pain frequent Pain Mgmt Resolve 2018-10-25 Madelaine pain d 09-18 15:10:00 Ingrahm 10:59: [id number] 00 Respiratory smoker Respirator Resolve 2018-10-25 Cherrise y d 09-23 15:10:00 Olya 11:50: [id number] 00 Elimination urinary Eliminatio Resolve 2018-10-25 Cherrise urgency n d 09-23 15:10:00 [place] 11:50: [id number] 00 Cardio hypertensio Cardiovasc Resolve 2018-11-11 Cherrise n ular d 5-29 14:00:00 Olya 11:20: [id number] 00 Endo/Sen glucose Endo/Sen Resolve 2018-10-25 Cherrise tolerance d 5-29 15:10:00 [place] problem 11:20: [id number] 00 Elimination urinary Eliminatio Resolve 2018-10-25 Conchita frequency n d 6-05 15:10:00 Shimon, 14:00: [id number] 00 Cardio edema Cardiovasc Resolve 2018-11-11 Cherrise ular d 6-10 14:00:00 [place] 11:00: [id number] 00 Safety risk for Safety Resolve 2018-11-11 Conchita hospitaliza d 6-17 14:00:00 daniel Robins 14:30: [id number] 00 Respiratory smoker Respirator Resolve 2018-11-11 Cherrise y d 6-19 14:00:00 [place] 10:25: [id number] 00 Endo/Sen glucose Endo/Sen Resolve 2018-11-11 Cherrise tolerance d 6-19 14:00:00 Olya problem 10:25: [id number] 00 Elimination urinary Eliminatio Resolve 2018-11-11 Cherrise urgency n d 6-19 14:00:00 Olya 10:25: [id number] 00 Elimination urinary Eliminatio Resolve 2018-11-11 Cherrise frequency n d 6-19 14:00:00 Olya 10:25: [id number] 00 Musculoskel requires Musculoske Resolve 2018-12-23 Cherrise etal human letal d 6- 11:00:00 Olya assist to 10:25: [id number] leave home 00 Musculoskel requires Musculoske Resolve 2018-12-23 Kerry etal special letal d 11-08 11:00:00 Maria Antonia transportat 18:30: [id number] ion 00 Safety fall risk Safety Resolve 2018-12-13 Cherrise factor d 7- 14:40:00 Olya present 14:45: [id number] 00 Neuro impaired Neuro/Emot Resolve 2018-2018-12-13 Madelaine decision-ma ion d 7-10 14:40:00 Jose Angel wilver 14:00: [id number] 00 Safety risk for Safety Resolve 2018-12-13 Madelaine hospitaliza d 7-10 14:40:00 Ingrabram tion 14:00: [id number] 00 Cardio edema Cardiovasc Resolve 2018-12-23 Cherrise ular d 7-15 11:00:00 [place] 11:00: [id number] 00 Respiratory smoker Respirator Resolve 2018-12-23 Cherrise y d 7-15 11:00:00 [place] 11:00: [id number] 00 Endo/Sen glucose Endo/Sen Resolve 2019-01-01 Cherrise tolerance d 7-15 15:00:00 [place] problem 11:00: [id number] 00 Elimination urinary Eliminatio Resolve 2018-12-13 Cherrise urgency n d 7-15 14:40:00 Olya 11:00: [id number] 00 Safety sanitation Safety Resolve 2018-12-13 Cherrise hazards d 7-15 14:40:00 Olya present 11:00: [id number] 00 Elimination urinary Eliminatio Resolve 2018-12-13 Cherrise frequency n d 7 14:40:00 [place] 11:15: [id number] 00 Neuro depressive Neuro/Emot Resolve 2019-01-17 Cherrise feelings ion d 7 15:25:00 Olya present 11:15: [id number] 00 Cardio hypertensio Cardiovasc Resolve 2018-12-23 Cherrise n ular d 12-04 11:00:00 [place] 14:40: [id number] 00 Musculoskel knowledge/s Musculoske Resolve 2018-12-23 Cherrise etal kill letal d 12-16 11:00:00 Olya deficit: cg 14:15: [id number] 00 Elimination urinary Eliminatio Resolve 2018-12-23 Cherrise urgency n d 12-20 11:00:00 Olya 10:10: [id number] 00 Neuro depressive Neuro/Emot Unknown Cherrise feelings ion 12-20 [place] present 10:10: [id number] 00 Neuro impaired Neuro/Emot Resolve 2019-01-17 Cherrise decision-ma ion d 12-20 15:25:00 Olya wilver 10:10: [id number] 00 Safety risk for Safety Resolve 2018-12-23 Cherrise hospitaliza d 12-20 11:00:00 Olya tion 10:10: [id number] 00 Sensory impaired Sensory Resolve 2019-01-17 Madelaine verbal d 12-23 15:25:00 Ingrahm communicati 11:00: [id number] 00 Cardio hypertensio Cardiovasc Resolve 2019-01-01 Cherrise n ular d 8 15:00:00 Olya 12:00: [id number] 00 Respiratory smoker Respirator Resolve 2019-01-01 Cherrise y d 8 15:00:00 [place] 12:00: [id number] 00 Elimination urinary Eliminatio Resolve 2019-01-01 Cherrise urgency n d 8 15:00:00 Olya 12:00: [id number] 00 Neuro anxiety Neuro/Emot Resolve 2019-01-17 Cherrise present ion d 12-25 15:25:00 [place] 12:00: [id number] 00 Safety risk for Safety Resolve 2019-01-01 Gigie hospitaliza d 8- 15:00:00 Olya tion 12:00: [id number] 00 Musculoskel requires Musculoske Unknown Cherrise etal human letal 12-25 Olya assist to 12:00: [id number] leave home 00 Respiratory smoker Respirator Resolve 2019-01-17 Cherrise y d 8 15:25:00 [place] 11:45: [id number] 00 Elimination urinary Eliminatio Resolve 2019-01-17 Cherrise urgency n d 8 15:25:00 [place] 11:45: [id number] 00 Safety fall risk Safety Resolve 2019-01-06 Cherrise factor d 01-03 12:25:00 Olya present 11:45: [id number] 00 Safety risk for Safety Resolve 2019-02-12 Cherrise hospitaliza d 01-03 15:15:00 [place] tion 11:45: [id number] 00 Neuro memory Neuro/Emot Resolve 2019-03-31 Cherrise deficit ion d 01-13 15:30:00 Olya needing 11:20: [id number] supervision 00 Elimination urinary Eliminatio Resolve 2019-01-17 Madelaine incontinenc n d 01-17 15:25:00 Ingrahm e 15:25: [id number] 00 Safety fall risk Safety Resolve 2019-01-17 Columba Alan factor d 01-17 15:25:00 Rashid present 15:25: [id number] 00 Cardio hypertensio Cardiovasc Resolve 2019-01-24 Narciso n mary d 01-20 09:00:00 [place] 11:15: [id number] 00 Safety sanitation Safety Resolve 2019-02-12 Cherrise hazards d 01-20 15:15:00 [place] present 11:15: [id number] 00 Respiratory smoker Respirator Resolve 2019-01-24 Madelaine y d 01-24 09:00:00 Ingrahm 09:00: [id number] 00 Musculoskel transfer Musculoske Active Cherrise etal assistance letal 01-29 Olya required 13:25: [id number] 00 Musculoskel requires Musculoske Active Cherrise etal human letal 01-29 Olya assist to 13:25: [id number] leave home 00 Musculoskel requires Musculoske Active Cherrise etal special letal 01-29 Olya transportat 13:25: [id number] ion 00 Respiratory smoker Respirator Resolve 2019-02-05 Cherrise y d 02-03 15:10:00 [place] 10:00: [id number] 00 Elimination urinary Eliminatio Resolve 2019-02-12 Cherrise urgency n d 02-03 15:15:00 Olya 10:00: [id number] 00 Safety fall risk Safety Resolve 2019-02-12 Cherrise factor d 9-27 15:15:00 Olya present 11:15: [id number] 00 Cardio hypertensio Cardiovasc Resolve 2018-052019-02-19 Chershawne n ular d 0-04 14:00:00 Olya 11:50: [id number] 00 Respiratory smoker Respirator Resolve 2018-052019-02-19 Cherrise y d 0-07 14:00:00 Olya 11:30: [id number] 00 Safety risk for Safety Resolve 2018-052019-03-12 Mdaelaine hospitaliza d 0-09 15:00:00 Ingrahm tion 14:00: [id number] 00 Cardio hypertensio Cardiovasc Resolve 2018-052019-03-19 Cherrise n ular d 0-18 14:00:00 [place] 12:30: [id number] 00 Respiratory smoker Respirator Resolve 2018-052019-03-12 Cherrise y d 0-18 15:00:00 [place] 12:30: [id number] 00 Elimination urinary Eliminatio Resolve 2018-052019-03-12 Cherrise urgency n d 0-18 15:00:00 [place] 12:30: [id number] 00 Respiratory smoker Respirator Resolve 2018-052019-03-19 Cherrise y d 1-04 14:00:00 [place] 09:40: [id number] 00 Elimination urinary Eliminatio Resolve 2018-052019-03-19 Cherrise urgency n d 1-04 14:00:00 Olya 09:40: [id number] 00 Safety risk for Safety Resolve 2018-052019-03-31 Cherrise hospitaliza d 1-04 15:30:00 [place] tion 09:40: [id number] 00 Safety fall risk Safety Resolve 2018-052019-03-31 Madelaine factor d 1-06 15:30:00 Ingrahm present 14:00: [id number] 00 Elimination urinary Eliminatio Resolve 2018-052019-03-31 Madelaine incontinenc n d 1-13 15:30:00 Ingrahm e 15:30: [id number] 00 Respiratory smoker Respirator Resolve 2018-052019-03-31 Cherrise y d 1-15 15:30:00 Olya 10:55: [id number] 00 Elimination urinary Eliminatio Resolve 2018-052019-03-31 Cherrise urgency n d 1-15 15:30:00 Olya 10:55: [id number] 00 Neuro depressive Neuro/Emot Resolve 2018-052019-03-31 Cherrise feelings ion d 05-28 15:30:00 [place] present 10:55: [id number] 00 Neuro impaired Neuro/Emot Resolve 2018-052019-03-31 Cherrise decision-ma ion d 05-28 15:30:00 [place] wilver 10:55: [id number] 00 Safety sanitation Safety Resolve 2018-052019-03-31 Cherrise hazards d 05-28 15:30:00 [place] present 10:55: [id number] 00 Cardio hypertensio Cardiovasc Active 2018-05 Cherrise n ular 06-07 Olya 11:30: [id number] 00 Respiratory smoker Respirator Active 2018-05 Cherrise y 06-16 [place] 14:05: [id number] 00 Elimination urinary Eliminatio Resolve 2018-052019-04-18 Cherrise incontinenc n d - 14:30:00 [place] e 14:05: [id number] 00 Elimination urinary Eliminatio Resolve 2018-052019-04-18 Cherrise urgency n d - 14:30:00 [place] 14:05: [id number] 00 Neuro depressive Neuro/Emot Active 2018-05 Cherrise feelings ion - [place] present 14:05: [id number] 00 Neuro impaired Neuro/Emot Active 2018-05 Cherrise decision-ma ion - Olya wilver 14:05: [id number] 00 Cardio edema Cardiovasc Active 2018-05 Cherrise ular 06-26 Olya 11:50: [id number] 00 Elimination urinary Eliminatio Active 2018-05 Cherrise urgency n - Olya 12:10: [id number] 00 Allergies, Adverse Reactions, Alerts Allergy Allergy [...] n 20 mg n 20 mg 01-26 MD,[place] tablet tablet furosemide furosemide 2017- No [place] Unknown Unknown 20 mg 20 mg 01-26 ,Kyle tablet tablet losartan losartan 2017- No [place] Unknown Unknown 100 mg 100 mg 01-26 MD,[place] tablet tablet metFORMIN metFORMIN No [place] Unknown Unknown 1,000 mg 1,000 mg 01-26 ,[place] tablet tablet Dulera 200 Dulera 200 2018- No [place] Unknown Unknown mcg-5 mcg-5 01-2616 Kyle COVARRUBIAS mcg/actuati mcg/actuati on HFA on HFA aerosol aerosol inhaler inhaler amLODIPine amLODIPine 2017- No [place] Unknown Unknown 10 mg 10 mg 01-26 ,[place] tablet tablet lisinopril lisinopril 2017-05- No [place] Unknown Unknown 20 mg 20 mg - ,[place] tablet tablet oxyCODONE 5 oxyCODONE 5 No Rafita Unknown Unknown mg tablet mg tablet 06-20 [place] COVARRUBIAS lisinopril lisinopril 2018- No Rafita Unknown Unknown 20 mg 20 mg 06-28- ,[place] tablet tablet lisinopril lisinopril No Rafita Unknown Unknown 30 mg 30 mg -15 ,[facility] tablet tablet hydroCHLORO hydroCHLORO No Rafita [...]
--- OUTSIDE RECORDS SUMMARY | 2019-05-09 12:28 | XMS REPORT ---
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-26 Ingrm infct infct [id number] causing causing diseases diseases classd classd elswhr elswhr Type 2 Type 2 Diagnosis Active Madelaine diabetes diabetes 05-14 [facility] mellitus mellitus [id number] with with diabetic diabetic neuropathy, neuropathy, unsp unsp Essential Essential Diagnosis Active Madelaine (primary) (primary) 05-14 [facility] hypertensio hypertensio [id number] n n Chronic Chronic Diagnosis Active Madelaine obstructive obstructive 05-14 [facility] pulmonary pulmonary [id number] disease, disease, unspecified unspecified G47.33 G47.33 Diagnosis Active Madelaine 05-14 Ingrahm [id number] Pain frequent Pain Mgmt Resolve 2018-06-14 Darya pain d 01-26 14:43:00 (Tejas) 09:45: Analilia 00 [id number] Cardio edema Cardiovasc Resolve 2018-02-18 Darya ular d 01-26 13:35:00 (Tejas) 09:45: Analilia 00 [id number] Cardio knowledge/s Cardiovasc Resolve 2018-02-18 Darya kill ular d 01-26 13:35:00 (Tejas) deficit: pt 09:45: Analilia 00 [id number] Respiratory dyspnea Respirator Resolve 2018-04-24 Darya present y d 01-26 15:19:00 (Tejas) 09:45: Analilia 00 [id number] Respiratory CPAP Respirator Resolve 2018-04-24 Quality treatments y d 9-15 15:19:00 Realtime7 in home 09:45: 00 Endo/Sen diabetic Endo/Sen Resolve 2018-02-25 Darya foot care d 9-15 14:00:00 (Tejas) 09:45: Billingsley [id number] Integument surgical Integument Resolve 2018-03-25 Darya wound d 9-15 14:35:00 (Tejas) present 09:45: Billingsley [id number] Integument skin Integument Resolve 2018-03-25 Darya integrity d 9-15 14:35:00 (Tejas) risk 09:45: Billingsley [id number] Integument other wound Integument Resolve 2018-03-25 Quality present d 9-15 14:35:00 Realtime7 09:45: 00 Nutrition nutritional Nutrition Resolve 2018-03-15 Darya restriction d 9-15 15:24:00 (Tejas) s 09:45: Billingsley [id number] Elimination urinary Eliminatio Resolve 2018-03-01 Darya incontinenc n d 9-15 09:00:00 (Tejas) e 09:45: Billingsley 00 [id number] Neuro confusion Neuro/Emot Resolve 2018-11-11 Darya present ion d 9-15 14:00:00 (Tejas) 09:45: Billingsley 00 [id number] Neuro anxiety Neuro/Emot Resolve 2018-11-11 Darya present ion d 9-15 14:00:00 (Tejas) 09:45: Billingsley [id number] Activity ADL Activity Resolve 2018-11-11 Darya assistance d 9-15 14:00:00 (Tejas) required 09:45: Billingsley [id number] Safety sanitation Safety Resolve 2018-10-25 Darya hazards d 9-15 15:10:00 (Tejas) present 09:45: Billingsley [id number] Safety fall risk Safety Resolve 2018-10-25 Darya factor d 9-15 15:10:00 (Tejas) present 09:45: Billingsley [id number] Safety risk for Safety Resolve 2018-10-25 Darya hospitaliza d 9-15 15:10:00 (Tejas) tion 09:45: Billingsley 00 [id number] Safety can be left Safety Resolve 2018-11-11 Darya alone for d 9-15 14:00:00 (Tejas) only short 09:45: Billingsley periods 00 [id number] Medication oral med Meds Resolve 2018-03-15 Darya assistance d 9-15 15:24:00 (Tejas) required 09:45: Billingsley [id number] Medication knowledge/s Meds Resolve 2018-03-15 Darya kill d 9-15 15:24:00 (Tejas) deficit: pt 09:45: Billingsley [id number] Medication potential Meds Resolve 2018-03-15 Darya clinically d 9-15 15:24:00 (Tejas) significant 09:45: Billingsley medication [id number] issue Musculoskel transfer Musculoske Unknown Quality etal assistance letal 01-26 Realtime7 required 09:45: 00 Sensory impaired Sensory Resolve 2018-11-11 Quality verbal d 917 14:00:00 Realtime7 communicati 14:00: on 24 Endo/Sen glucose Endo/Sen Resolve 2018-02-25 Cherrise tolerance d 01-31 14:00:00 Olya problem 13:25: [id number] 00 Nutrition knowledge/s Nutrition Resolve 2018-03-15 Cherrise kill d 01-31 15:24:00 Olya deficit: pt 13:25: [id number] 00 Elimination urinary Eliminatio Resolve 2018-03-01 Cherrise urgency n d 01-31 09:00:00 [place] 13:25: [id number] 00 Elimination urinary Eliminatio Resolve 2018-03-01 Cherrise frequency n d 01-31 09:00:00 Olya 13:25: [id number] 00 Neuro impaired Neuro/Emot Resolve 2018-11-11 Cherrise decision-ma ion d 01-31 14:00:00 [place] wilver 13:25: [id number] 00 Musculoskel requires Musculoske Unknown Cherrise etal human letal 9-20 [place] assist to 13:25: [id number] leave home 00 Cardio hypertensio Cardiovasc Resolve 2018-02-18 Cherrise n ular d 9-24 13:35:00 [place] 13:05: [id number] 00 Musculoskel requires Musculoske Unknown 2017-05 Cherrise etal human letal 0-05 [place] assist to 13:40: [id number] leave home 00 Cardio hypertensio Cardiovasc Resolve 2017-052018-03-25 Cherrise n ular d 0-12 14:35:00 Olya 12:45: [id number] 00 Respiratory smoker Respirator Resolve 2017-052018-04-24 Cherrise y d 0-12 15:19:00 [place] 12:45: [id number] 00 Musculoskel transfer Musculoske Unknown 2017-05 Cherrise etal assistance letal 0-12 [place] required 12:45: [id number] 00 Endo/Sen glucose Endo/Sne Resolve 2017-052018-03-22 Cherrise tolerance d 0-22 15:29:00 [place] problem 13:50: [id number] 00 Elimination urinary Eliminatio Resolve 2017-052018-03-15 Cherrise incontinenc n d 0-22 15:24:00 Olya e 13:50: [id number] 00 Elimination urinary Eliminatio Resolve 2017-052018-03-15 Cherrise urgency n d 0-22 15:24:00 Olya 13:50: [id number] 00 Elimination urinary Eliminatio Resolve 2017-052018-03-15 Cherrise frequency n d 0-22 15:24:00 [place] 13:50: [id number] 00 Endo/Sen glucose Endo/Sen Resolve 2017-052018-03-22 Cherrise testing d 0-29 15:29:00 Olya dependence 13:30: [id number] 00 Nutrition knowledge/s Nutrition Resolve 2017-052018-03-25 Cherrise kill d 1-05 14:35:00 Olya deficit: pt 11:30: [id number] 00 Elimination urinary Eliminatio Resolve 2017-052018-03-22 Cherrise frequency n d 1-05 15:29:00 Olya 11:30: [id number] 00 Pain frequent Pain Mgmt Resolve 2017-052018-06-14 Stephany pain d 05-25 14:43:00 [place] 14:35: h [id number] 00 Nutrition nutritional Nutrition Resolve 2017-052018-03-25 Stephany restriction d 05-25 14:35:00 [place] s 14:35: h [id number] 00 Elimination urinary Eliminatio Resolve 2017-052018-04-05 Stephany incontinenc n d 05-25 14:45:00 [place] e 14:35: h [id number] 00 Elimination urinary Eliminatio Resolve 2017-052018-04-05 Stephany frequency n d 05-25 14:45:00 [place] 14:35: h [id number] 00 Musculoskel requires Musculoske Unknown 2017-05 Stephany etal special letal 05-25 [facility] transportat 14:35: h [id number] ion 00 Cardio hypertensio Cardiovasc Resolve 2017-052018-04-12 Cherrise n ular d 05-27 13:46:00 [place] 12:00: [id number] 00 Endo/Sen glucose Endo/Sen Resolve 2017-052018-04-05 Cherrise tolerance d 05-27 14:45:00 Olya problem 12:00: [id number] 00 Elimination urinary Eliminatio Resolve 2017-052018-04-05 Cherrise urgency n d 06-01 14:45:00 [place] 12:45: [id number] 00 Elimination urinary Eliminatio Resolve 2017-052018-04-12 Cherrise urgency n d 06-08 13:46:00 Olya 10:55: [id number] 00 Elimination urinary Eliminatio Resolve 2017-052018-04-12 Cherrise frequency n d 06-08 13:46:00 [place] 10:55: [id number] 00 Endo/Sen glucose Endo/Sen Resolve 2017-052018-04-24 Cherrise tolerance d 06-16 15:19:00 [place] problem 12:20: [id number] 00 Elimination urinary Eliminatio Resolve 2017-052018-04-24 Cherrise frequency n d 06-16 15:19:00 [place] 12:20: [id number] 00 Cardio hypertensio Cardiovasc Resolve 2017-052018-04-24 Cherrise n ular d 2- 15:19:00 [place] 10:35: [id number] 00 Elimination urinary Eliminatio Resolve 2017-052018-04-24 Cherrise urgency n d 2 15:19:00 Olya 10:35: [id number] 00 Elimination urinary Eliminatio Resolve 2017-052018-04-24 Stephany incontinenc n d 06-25 15:19:00 [place] e 15:19: h [id number] 00 Cardio hypertensio Cardiovasc Resolve 2017-052018-06-07 Cherrise n ular d 2-14 13:31:00 [place] 13:15: [id number] 00 Respiratory dyspnea Respirator Active 2017-05 Cherrise present y 06-27 [place] 13:15: [id number] 00 Respiratory CPAP Respirator Active 2017-05 Cherrise treatments y 06-27 Olya in home 13:15: [id number] 00 Respiratory smoker Respirator Resolve 2017-052018-06-03 Cherrise y d 2-14 14:08:00 [place] 13:15: [id number] 00 Elimination urinary Eliminatio Resolve 2017-052018-05-31 Cherrise urgency n d 2-14 14:21:00 Olya 13:15: [id number] 00 Elimination urinary Eliminatio Resolve 2017-052018-05-31 Cherrise frequency n d 2-14 14:21:00 Olya 13:15: [id number] 00 Elimination diarrhea Eliminatio Resolve 2017-052018-05-31 Cherrise n d 2-14 14:21:00 [place] 13:15: [id number] 00 Endo/Sen glucose Endo/Sen Resolve 2017-052018-05-31 Cherrise tolerance d 2-24 14:21:00 [place] problem 13:10: [id number] 00 Infection s/s of Infection Active Stephany infection 05-31 [place] 14:21: h [id number] 00 Respiratory smoker Respirator Resolve 2018-09-13 Cherrise y d 06-05 13:20:00 Olya 13:35: [id number] 00 Endo/Sen glucose Endo/Sen Resolve 2018-06-21 Cherrise tolerance d 06-05 10:26:00 [place] problem 13:35: [id number] 00 Elimination urinary Eliminatio Resolve 2018-06-14 Cherrise urgency n d 06-05 14:43:00 [place] 13:35: [id number] 00 Elimination urinary Eliminatio Resolve 2018-06-14 Cherrise frequency n d 06-05 14:43:00 [place] 13:35: [id number] 00 Cardio hypertensio Cardiovasc Resolve 2018-09-13 Cherrise n ular d 06-10 13:20:00 Olya 11:00: [id number] 00 Elimination urinary Eliminatio Resolve 2018-06-21 Cherrise urgency n d 06-19 10:26:00 [place] 10:50: [id number] 00 Elimination urinary Eliminatio Resolve 2018-06-21 Stephany frequency n d 06-21 10:26:00 [place] 10:26: h [id number] 00 Endo/Sen glucose Endo/Sen Resolve 2018-06-28 Cherrise tolerance d 2- 14:32:00 [place] problem 11:25: [id number] 00 Elimination urinary Eliminatio Resolve 2018-06-28 Cherrise urgency n d 2- 14:32:00 Olya 11:25: [id number] 00 Elimination urinary Eliminatio Resolve 2018-06-28 Cherrise frequency n d 2- 14:32:00 [place] 11:50: [id number] 00 Endo/Sen glucose Endo/Sen Resolve 2018-07-12 Cherrise tolerance d 07-03 13:43:00 [place] problem 11:50: [id number] 00 Elimination urinary Eliminatio Resolve 2018-07-12 Cherrise urgency n d 07-08 13:43:00 [place] 12:30: [id number] 00 Neuro depressive Neuro/Emot Resolve 2018-11-11 Cherrise feelings ion d 2 14:00:00 Olya present 12:30: [id number] 00 Elimination urinary Eliminatio Resolve 2018-07-12 Cherrise frequency n d 2-27 13:43:00 Olya 10:45: [id number] 00 Elimination urinary Eliminatio Resolve 2018-07-24 Stephany frequency n d 3-06 12:48:00 [place] 11:53: h [id number] 00 Endo/Sen glucose Endo/Sen Resolve 2018-09-18 Cherrise tolerance d 3-11 10:59:00 Olya problem 10:15: [id number] 00 Elimination urinary Eliminatio Resolve 2018-07-24 Cherrise urgency n d 3-11 12:48:00 Olya 10:15: [id number] 00 Pain frequent Pain Mgmt Resolve 2018-07-24 Stephany pain d 3-13 12:48:00 [place] 12:48: h [id number] 00 Elimination urinary Eliminatio Resolve 2018-09-13 Cherrise urgency n d 3-15 13:20:00 Olya 12:40: [id number] 00 Musculoskel requires Musculoske Unknown Cherrise etal human letal 3-15 Olya assist to 12:40: [id number] leave home 00 Respiratory lung sounds Respirator Resolve 2018-09-13 Christel deficit y d - 13:20:00 Jeb 15:19: [id number] 00 Safety fire risk Safety Resolve 2018-10-25 Christel present d 3 15:10:00 Jeb 15:19: [id number] 00 Elimination urinary Eliminatio Resolve 2018-09-13 Cherrise frequency n d 4-08 13:20:00 [place] 12:50: [id number] 00 Integument surgical Integument Active Cherrise wound 4-24 Olya present 11:45: [id number] 00 Integument skin Integument Active Cherrise integrity 4-24 Olya risk 11:45: [id number] 00 Integument other wound Integument Active Cherrise present 4- [place] 11:45: [id number] 00 Nutrition knowledge/s Nutrition Active Cherrise kill 09-04 [place] deficit: pt 11:45: [id number] 00 Nutrition nutritional Nutrition Active Cherrise restriction 09-04 Olya s 11:45: [id number] 00 Musculoskel transfer Musculoske Resolve 2018-10-25 Cherrise etal assistance letal d 09-04 15:10:00 Olya required 11:45: [id number] 00 Musculoskel requires Musculoske Resolve 2018-10-25 Cherrise etal human letal d 09-04 15:10:00 Olya assist to 11:45: [id number] leave home 00 Elimination constipatio Eliminatio Resolve 2018-09-13 Cherrise n n d 09-09 13:20:00 [place] 14:10: [id number] 00 Pain frequent Pain Mgmt Resolve 2018-10-25 [facility]aine [facility] d [id number] 00 Respiratory smoker Respirator Resolve 2018-10-25 Cherrise y d - 15:10:00 [place] 11:50: [id number] 00 Elimination urinary Eliminatio Resolve 2018-10-25 Cherrise urgency n d - 15:10:00 Olya 11:50: [id number] 00 Cardio hypertensio Cardiovasc Resolve 2018-11-11 Cherrise n ular d 10-09 14:00:00 Olya 11:20: [id number] 00 Endo/Sen glucose Endo/Sen Resolve 2018-10-25 Cherrise tolerance d 10-09 15:10:00 [place] problem 11:20: [id number] 00 Elimination urinary Eliminatio Resolve 2018-10-25 Con[place]ita frequency n d 10-16 15:10:00 Shimon, 14:00: [id number] 00 Cardio edema Cardiovasc Resolve 2018-11-11 Cherrise ular d 6- 14:00:00 Olya 11:00: [id number] 00 Safety risk for Safety Resolve 2018-11-01 Conchita hospitaliza d 6-17 14:00:00 daniel oRbins 14:30: [id number] 00 Respiratory smoker Respirator Resolve 2018-11-11 Cherrise y d 6-19 14:00:00 Olya 10:25: [id number] 00 Endo/Sen glucose Endo/Sen Resolve 2018-11-11 Cherrise tolerance d 6-19 14:00:00 Olya problem 10:25: [id number] 00 Elimination urinary Eliminatio Resolve 2018-11-11 Cherrise urgency n d 6-19 14:00:00 Olya 10:25: [id number] 00 Elimination urinary Eliminatio Resolve 2018-11-11 Cherrise frequency n d 6-19 14:00:00 Olya 10:25: [id number] 00 Musculoskel requires Musculoske Resolve 2018-12-23 Cherrise etal human letal d 6- 11:00:00 Olya assist to 10:25: [id number] leave home 00 Musculoskel requires Musculoske Resolve 2018-12-23 Kerry etal special letal d 6- 11:00:00 Maria Antonia transportat 18:30: [id number] ion 00 Safety fall risk Safety Resolve 2018-12-13 Cherrise factor d 7- 14:40:00 [place] present 14:45: [id number] 00 Neuro impaired Neuro/Emot Resolve 2018-12-13 Madelaine mullen ion d 7- 14:40:00 Jose Angel pettit 14:00: [id number] 00 Safety risk for Safety Resolve 2018-12-13 Madelaine garciaiza d 7-10 14:40:00 Ingrahm tion 14:00: [id number] 00 Cardio edema Cardiovasc Resolve 2018-12-23 Cherrise ular d 7-15 11:00:00 Olya 11:00: [id number] 00 Respiratory smoker Respirator Resolve 2018-12-23 Cherrise y d 7-15 11:00:00 [place] 11:00: [id number] 00 Endo/Sen glucose Endo/Sen Resolve 2019-01-01 Cherrise tolerance d 7-15 15:00:00 [place] problem 11:00: [id number] 00 Elimination urinary Eliminatio Resolve 2018-12-13 Cherrise urgency n d 7-15 14:40:00 Olya 11:00: [id number] 00 Safety sanitation Safety Resolve 2018-12-13 Cherrise hazards d 7-15 14:40:00 Olya present 11:00: [id number] 00 Elimination urinary Eliminatio Resolve 2018-12-13 Cherrise frequency n d 7 14:40:00 [place] 11:15: [id number] 00 Neuro depressive Neuro/Emot Resolve 2019-01-17 Cherrise feelings ion d 12-02 15:25:00 Olya present 11:15: [id number] 00 Cardio hypertensio Cardiovasc Resolve 2018-12-23 Cherrise n ular d 12-04 11:00:00 [place] 14:40: [id number] 00 Musculoskel knowledge/s Musculoske Resolve 2018-12-23 Cherrise etal kill letal d 12-16 11:00:00 Olya deficit: cg 14:15: [id number] 00 Elimination urinary Eliminatio Resolve 2018-12-23 Cherrise urgency n d 12-20 11:00:00 Olya 10:10: [id number] 00 Neuro depressive Neuro/Emot Unknown Cherrise feelings ion 12-20 [place] present 10:10: [id number] 00 Neuro impaired Neuro/Emot Resolve 2019-01-17 Cherrise decision-ma ion d 12-20 15:25:00 Olya wilver 10:10: [id number] 00 Safety risk for Safety Resolve 2018-12-23 Cherrise hospitaliza d 12-20 11:00:00 [place] tion 10:10: [id number] 00 Sensory impaired Sensory Resolve 2019-01-17 Madelaine verbal d 12-23 15:25:00 Ingrahm communicati 11:00: [id number] on 00 Cardio hypertensio Cardiovasc Resolve 2019-01-01 Cherrise n ular d 8-14 15:00:00 [place] 12:00: [id number] 00 Respiratory smoker Respirator Resolve 2019-01-01 Cherrise y d 8-14 15:00:00 Olya 12:00: [id number] 00 Elimination urinary Eliminatio Resolve 2019-01-01 Cherrise urgency n d 8-14 15:00:00 Olya 12:00: [id number] 00 Neuro anxiety Neuro/Emot Resolve 2019-01-17 Cherrise present ion d 8-14 15:25:00 [place] 12:00: [id number] 00 Safety risk for Safety Resolve 2019-01-01 Cher[facility] hospitaliza d 8-14 15:00:00 [place] tion 12:00: [id number] 00 Musculoskel requires Musculoske Unknown Cherrise etal human letal 12-25 [place] assist to 12:00: [id number] leave home 00 Respiratory smoker Respirator Resolve 2019-01-17 Cherrise y d 01-03 15:25:00 Olya 11:45: [id number] 00 Elimination urinary Eliminatio Resolve 2019-01-17 Cherrise urgency n d 01-03 15:25:00 Olya 11:45: [id number] 00 Safety fall risk Safety Resolve 2019-01-06 Cherrise factor d 8 12:25:00 Olya present 11:45: [id number] 00 Safety risk for Safety Resolve 2019-02-12 Cherrise hospitaliza d 01-03 15:15:00 [place] tion 11:45: [id number] 00 Neuro memory Neuro/Emot Resolve 2019-03-31 Cherrise deficit ion d 01-13 15:30:00 Olya needing 11:20: [id number] supervision 00 Elimination urinary Eliminatio Resolve 2019-01-17 Madelaine incontinenc n d 01-17 15:25:00 Ingrahm e 15:25: [id number] 00 Safety fall risk Safety Resolve 2019-01-17 Desiree factor d 9-06 15:25:00 Rashid present 15:25: [id number] 00 Cardio hypertensio Cardiovasc Resolve 2019-01-24 Narciso aguilar ular d 01-20 09:00:00 [place] 11:15: [id number] 00 Safety sanitation Safety Resolve 2019-02-12 Cherrise hazards d 01-20 15:15:00 [place] present 11:15: [id number] 00 Respiratory smoker Respirator Resolve 2019-01-24 Madelaine y d 01-24 09:00:00 Ingrahm 09:00: [id number] 00 Musculoskel transfer Musculoske Active Cherrise etal assistance letal 01-29 [place] required 13:25: [id number] 00 Musculoskel requires Musculoske Active Cherrise etal human letal 01-29 Olya assist to 13:25: [id number] leave home 00 Musculoskel requires Musculoske Active Cherrise etal special letal 01-29 Olya transportat 13:25: [id number] ion 00 Respiratory smoker Respirator Resolve 2019-02-05 Cherrise y d 02-03 15:10:00 Olya 10:00: [id number] 00 Elimination urinary Eliminatio Resolve 2019-02-12 Cherrise urgency n d 02-03 15:15:00 Olya 10:00: [id number] 00 Safety fall risk Safety Resolve 2019-02-12 Cherrise factor d 02-07 15:15:00 [place] present 11:15: [id number] 00 Cardio hypertensio Cardiovasc Resolve 2018-052019-02-19 Narciso hernandez d 0-04 14:00:00 Olya 11:50: [id number] 00 Respiratory smoker Respirator Resolve 2018-052019-02-19 Gigie y d 0-07 14:00:00 [place] 11:30: [id number] 00 Safety risk for Safety Resolve 2018-052019-03-12 Madleaine landon d 009 15:00:00 Ingrahm tion 14:00: [id number] 00 Cardio hypertensio Cardiovasc Resolve 2018-052019-03-19 Cherrise n ular d 0-18 14:00:00 Olya 12:30: [id number] 00 Respiratory smoker Respirator Resolve 2018-052019-03-12 Cherrise y d 0-18 15:00:00 [place] 12:30: [id number] 00 Elimination urinary Eliminatio Resolve 2018-052019-03-12 Cherrise urgency n d 0-18 15:00:00 Olya 12:30: [id number] 00 Respiratory smoker Respirator Resolve 2018-052019-03-19 Cherrise y d 1-04 14:00:00 Olya 09:40: [id number] 00 Elimination urinary Eliminatio Resolve 2018-052019-03-19 Cherrise urgency n d 1-04 14:00:00 [place] 09:40: [id number] 00 Safety risk for Safety Resolve 2018-052019-03-31 Cherrise hospitaliza d 1-04 15:30:00 [place] tion 09:40: [id number] 00 Safety fall risk Safety Resolve 2018-052019-03-31 Madelaine factor d 1-06 15:30:00 Ingrahm present 14:00: [id number] 00 Elimination urinary Eliminatio Resolve 2018-052019-03-31 Madelaine incontinenc n d 1-13 15:30:00 Ingrahm e 15:30: [id number] 00 Respiratory smoker Respirator Resolve 2018-052019-03-31 Cherrise y d 1-15 15:30:00 [place] 10:55: [id number] 00 Elimination urinary Eliminatio Resolve 2018-052019-03-31 Cherrise urgency n d 1-15 15:30:00 [place] 10:55: [id number] 00 Neuro depressive Neuro/Emot Resolve 2018-052019-03-31 Cherrise feelings ion d 115 15:30:00 [place] present 10:55: [id number] 00 Neuro impaired Neuro/Emot Resolve 2018-052019-03-31 Cherrise decision-ma ion d 115 15:30:00 Olya wilver 10:55: [id number] 00 Safety sanitation Safety Resolve 2018-052019-03-31 Cherrise hazards d 1-15 15:30:00 Olya present 10:55: [id number] 00 Cardio hypertensio Cardiovasc Active 2018-05 Cherrise n ular 06-07 Olya 11:30: [id number] 00 Respiratory smoker Respirator Active 2018-05 Cherrise y 06-16 Olya 14:05: [id number] 00 Elimination urinary Eliminatio Active 2018-05 Cherrise incontinenc n 06-16 Olya e 14:05: [id number] 00 Elimination urinary Eliminatio Active 2018-05 Cherrise urgency n 06-16 Olya 14:05: [id number] 00 Neuro depressive Neuro/Emot Active 2018-05 Cherrise feelings ion 06-16 [place] present 14:05: [id number] 00 Neuro impaired Neuro/Emot Active 2018-05 Cherrise decision-ma ion 06-16 [place] wilver 14:05: [id number] 00 Allergies, Adverse Reactions, Alerts Allergy Allergy [...] Unknown Unknown 20 mg 20 mg 01-26 ,[place] tablet tablet losartan losartan 2017- No [place] Unknown Unknown 100 mg 100 mg 01-26 ,Kyle tablet tablet metFORMIN metFORMIN No [place] Unknown Unknown 1,000 mg 1,000 mg 01-26 ,[place] tablet tablet Dulera 200 Dulera 200 2018- [...]
[2019-05-09 12:29] LABS: Activated Partial Thrombo Time 35.7 seconds (26.0-38.0); INR 1.27 (0.82-1.09)
--- OUTSIDE RECORDS SUMMARY | 2019-05-09 12:29 | XMS REPORT ---
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 [id number] causing causing diseases diseases classd classd elswhr elswhr Type 2 Type 2 Diagnosis Active Madelaine diabetes diabetes 05-14 [facility] mellitus mellitus [id number] with with diabetic diabetic neuropathy, neuropathy, unsp unsp Essential Essential Diagnosis Active Madelaine (primary) (primary) 05-14 [facility] hypertensio hypertensio [id number] n n Chronic Chronic Diagnosis Active Madelaine obstructive obstructive 05-14 [facility] pulmonary pulmonary [id number] disease, disease, unspecified unspecified G47.33 G47.33 Diagnosis Active Madelaine 05-14 Ingra[facility] [id number] Pain frequent Pain Mgmt Resolve 2018-06-14 Darya pain d 01-26 14:43:00 (Tejas) 09:45: Analilia 00 [id number] Cardio edema Cardiovasc Resolve 2018-02-18 Darya ular d 01-26 13:35:00 (Tejas) 09:45: Analilia 00 [id number] Cardio knowledge/s Cardiovasc Resolve 2018-02-18 Darya kill ular d 01-26 13:35:00 (Tejas) deficit: pt 09:45: Analilia 00 [id number] Respiratory dyspnea Respirator Resolve 2018-04-24 Darya present y d 01-26 15:19:00 (Tejas) 09:45: Analilia 00 [id number] Respiratory CPAP Respirator Resolve 2018-04-24 Quality treatments y d 9-15 15:19:00 Realtime7 in home 09:45: 00 Endo/Sen diabetic Endo/Sen Resolve 2018-02-25 Darya foot care d 9-15 14:00:00 (Tejas) 09:45: Billingsley [id number] Integument surgical Integument Resolve 2018-03-25 Darya wound d 9-15 14:35:00 (Tejas) present 09:45: Billingsley [id number] Integument skin Integument Resolve 2018-03-25 Darya integrity d 9-15 14:35:00 (Tejas) risk 09:45: Billingsley [id number] Integument other wound Integument Resolve 2018-03-25 Quality present d 9-15 14:35:00 Realtime7 09:45: 00 Nutrition nutritional Nutrition Resolve 2018-03-15 Darya restriction d 9-15 15:24:00 (Tejas) s 09:45: Billingsley [id number] Elimination urinary Eliminatio Resolve 2018-03-01 Darya incontinenc n d 9-15 09:00:00 (Tejas) e 09:45: Billingsley 00 [id number] Neuro confusion Neuro/Emot Resolve 2018-11-11 Darya present ion d 9-15 14:00:00 (Tejas) 09:45: Billingsley 00 [id number] Neuro anxiety Neuro/Emot Resolve 2018-11-11 Darya present ion d 9-15 14:00:00 (Tejas) 09:45: Billingsley [id number] Activity ADL Activity Resolve 2018-11-11 Darya assistance d 9-15 14:00:00 (Tejas) required 09:45: Billingsley [id number] Safety sanitation Safety Resolve 2018-10-25 Darya hazards d 9-15 15:10:00 (Tejas) present 09:45: Billingsley [id number] Safety fall risk Safety Resolve 2018-10-25 Darya factor d 9-15 15:10:00 (Tejas) present 09:45: Billingsley [id number] Safety risk for Safety Resolve 2018-10-25 Darya hospitaliza d 9-15 15:10:00 (Tejas) tion 09:45: Bill[place]ley 00 [id number] Safety can be left Safety Resolve 2018-11-11 Darya alone for d 9-15 14:00:00 (Tejas) only short 09:45: Billingsley periods 00 [id number] Medication oral med Meds Resolve 2018-03-15 Darya assistance d 9-15 15:24:00 (Tejas) required 09:45: [place]ley [id number] Medication knowledge/s Meds Resolve 2018-03-15 Darya kill d 9-15 15:24:00 (Tejas) deficit: pt 09:45: [place] [id number] Medication potential Meds Resolve 2018-03-15 Darya clinically d 9-15 15:24:00 (Tejas) significant 09:45: Billingsley medication [id number] issue Musculoskel transfer Musculoske Unknown Quality etal assistance letal 01-26 Realtime7 required 09:45: 00 Sensory impaired Sensory Resolve 2018-11-11 Quality verbal d 917 14:00:00 Realtime7 communicati 14:00: on 24 Endo/Sen glucose Endo/Sen Resolve 2018-02-25 Cherrise tolerance d 01-31 14:00:00 [place] problem 13:25: [id number] 00 Nutrition knowledge/s Nutrition Resolve 2018-03-15 Cherrise kill d 01-31 15:24:00 Olya deficit: pt 13:25: [id number] 00 Elimination urinary Eliminatio Resolve 2018-03-01 Cherrise urgency n d 01-31 09:00:00 [place] 13:25: [id number] 00 Elimination urinary Eliminatio Resolve 2018-03-01 Cherrise frequency n d 01-31 09:00:00 Olya 13:25: [id number] 00 Neuro impaired Neuro/Emot Resolve 2018-11-11 Cherrise decision-ma ion d 01-31 14:00:00 [place] wilver 13:25: [id number] 00 Musculoskel requires Musculoske Unknown Cherrise etal human letal 9-20 Olya assist to 13:25: [id number] leave home 00 Cardio hypertensio Cardiovasc Resolve 2018-02-18 Cherrise n ular d 9-24 13:35:00 Olya 13:05: [id number] 00 Musculoskel requires Musculoske Unknown 2017-05 Cherrise etal human letal 0-05 [place] assist to 13:40: [id number] leave home 00 Cardio hypertensio Cardiovasc Resolve 2017-052018-03-25 Cherrise n ular d 0-12 14:35:00 [place] 12:45: [id number] 00 Respiratory smoker Respirator Resolve 2017-052018-04-24 Cherrise y d 0-12 15:19:00 [place] 12:45: [id number] 00 Musculoskel transfer Musculoske Unknown 2017-05 Cherrise etal assistance letal 0-12 Olya required 12:45: [id number] 00 Endo/Sen glucose Endo/Sen Resolve 2017-052018-03-22 Cherrise tolerance d 0-22 15:29:00 Olya problem 13:50: [id number] 00 Elimination urinary Eliminatio Resolve 2017-052018-03-15 Cherrise incontinenc n d 0-22 15:24:00 Olya e 13:50: [id number] 00 Elimination urinary Eliminatio Resolve 2017-052018-03-15 Cherrise urgency n d 0-22 15:24:00 Olya 13:50: [id number] 00 Elimination urinary Eliminatio Resolve 2017-052018-03-15 Cherrise frequency n d 0-22 15:24:00 [place] 13:50: [id number] 00 Endo/Sen glucose Endo/Sen Resolve 2017-052018-03-22 Cherrise testing d 0-29 15:29:00 Olya dependence 13:30: [id number] 00 Nutrition knowledge/s Nutrition Resolve 2017-052018-03-25 Cherrise kill d 1-05 14:35:00 Olya deficit: pt 11:30: [id number] 00 Elimination urinary Eliminatio Resolve 2017-052018-03-22 Cherrise frequency n d 1-05 15:29:00 Olya 11:30: [id number] 00 Pain frequent Pain Mgmt Resolve 2017-052018-06-14 Stephany pain d 05-25 14:43:00 [place] 14:35: h [id number] 00 Nutrition nutritional Nutrition Resolve 2017-052018-03-25 Stephany restriction d 05-25 14:35:00 [place] s 14:35: h [id number] 00 Elimination urinary Eliminatio Resolve 2017-052018-04-05 Stephany incontinenc n d 05-25 14:45:00 [place] e 14:35: h [id number] 00 Elimination urinary Eliminatio Resolve 2017-052018-04-05 Stephany frequency n d 05-25 14:45:00 [place] 14:35: h [id number] 00 Musculoskel requires Musculoske Unknown 2017-05 Stephany etal special letal 05-25 [place] transportat 14:35: h [id number] ion 00 Cardio hypertensio Cardiovasc Resolve 2017-052018-04-12 Cherrise n ular d 05-27 13:46:00 Olya 12:00: [id number] 00 Endo/Sen glucose Endo/Sen Resolve 2017-052018-04-05 Cherrise tolerance d 05-27 14:45:00 [place] problem 12:00: [id number] 00 Elimination urinary Eliminatio Resolve 2017-052018-04-05 Cherrise urgency n d 06-01 14:45:00 [place] 12:45: [id number] 00 Elimination urinary Eliminatio Resolve 2017-052018-04-12 Cherrise urgency n d 06-08 13:46:00 [place] 10:55: [id number] 00 Elimination urinary Eliminatio Resolve 2017-052018-04-12 Cherrise frequency n d 06-08 13:46:00 Olya 10:55: [id number] 00 Endo/Sen glucose Endo/Sen Resolve 2017-052018-04-24 Cherrise tolerance d 06-16 15:19:00 [place] problem 12:20: [id number] 00 Elimination urinary Eliminatio Resolve 2017-052018-04-24 Cherrise frequency n d 06-16 15:19:00 Olya 12:20: [id number] 00 Cardio hypertensio Cardiovasc Resolve 2017-052018-04-24 Cherrise n ular d 2- 15:19:00 Olya 10:35: [id number] 00 Elimination urinary Eliminatio Resolve 2017-052018-04-24 Cherrise urgency n d 2 15:19:00 [place] 10:35: [id number] 00 Elimination urinary Eliminatio Resolve 2017-052018-04-24 Stephany incontinenc n d 06-25 15:19:00 [place] e 15:19: h [id number] 00 Cardio hypertensio Cardiovasc Resolve 2017-052018-06-07 Cherrise n ular d 2-14 13:31:00 [place] 13:15: [id number] 00 Respiratory dyspnea Respirator Active 2017-05 Cherrise present y 06-27 [place] 13:15: [id number] 00 Respiratory CPAP Respirator Active 2017-05 Cherrise treatments y 06-27 [place] in home 13:15: [id number] 00 Respiratory smoker Respirator Resolve 2017-052018-06-03 Cherrise y d 2-14 14:08:00 [place] 13:15: [id number] 00 Elimination urinary Eliminatio Resolve 2017-052018-05-31 Cherrise urgency n d 2-14 14:21:00 [place] 13:15: [id number] 00 Elimination urinary Eliminatio Resolve 2017-052018-05-31 Cherrise frequency n d 2-14 14:21:00 Olya 13:15: [id number] 00 Elimination diarrhea Eliminatio Resolve 2017-052018-05-31 Cherrise n d 2-14 14:21:00 Olya 13:15: [id number] 00 Endo/Sen glucose Endo/Sen Resolve 2017-052018-05-31 Cherrise tolerance d 2-24 14:21:00 [place] problem 13:10: [id number] 00 Infection s/s of Infection Active Stephany infection 05-31 [place] 14:21: h [id number] 00 Respiratory smoker Respirator Resolve 2018-09-13 Cherrise y d 06-05 13:20:00 Olya 13:35: [id number] 00 Endo/Sen glucose Endo/Sen Resolve 2018-06-21 Cherrise tolerance d 06-05 10:26:00 Olya problem 13:35: [id number] 00 Elimination urinary Eliminatio Resolve 2018-06-14 Cherrise urgency n d 06-05 14:43:00 Olya 13:35: [id number] 00 Elimination urinary Eliminatio Resolve 2018-06-14 Cherrise frequency n d 06-05 14:43:00 Olya 13:35: [id number] 00 Cardio hypertensio Cardiovasc Resolve 2018-09-13 Cherrise n ular d 06-10 13:20:00 [place] 11:00: [id number] 00 Elimination urinary Eliminatio Resolve 2018-06-21 Cherrise urgency n d 06-19 10:26:00 [place] 10:50: [id number] 00 Elimination urinary Eliminatio Resolve 2018-06-21 Stephany frequency n d 06-21 10:26:00 [place] 10:26: h [id number] 00 Endo/Sen glucose Endo/Sen Resolve 2018-06-28 Cherrise tolerance d 2- 14:32:00 Olya problem 11:25: [id number] 00 Elimination urinary Eliminatio Resolve 2018-06-28 Cherrise urgency n d 2- 14:32:00 [place] 11:25: [id number] 00 Elimination urinary Eliminatio Resolve 2018-06-28 Cherrise frequency n d 2- 14:32:00 Olya 11:50: [id number] 00 Endo/Sen glucose Endo/Sen Resolve 2018-07-12 Cherrise tolerance d 07-03 13:43:00 [place] problem 11:50: [id number] 00 Elimination urinary Eliminatio Resolve 2018-07-12 Cherrise urgency n d 07-08 13:43:00 Olya 12:30: [id number] 00 Neuro depressive Neuro/Emot Resolve 2018-11-11 Cherrise feelings ion d 2 14:00:00 [place] present 12:30: [id number] 00 Elimination urinary Eliminatio Resolve 2018-07-12 Cherrise frequency n d 2-27 13:43:00 [place] 10:45: [id number] 00 Elimination urinary Eliminatio Resolve 2018-07-24 Stehpany frequency n d 3-06 12:48:00 [place] 11:53: h [id number] 00 Endo/Sen glucose Endo/Sen Resolve 2018-09-18 Cherrise tolerance d 3-11 10:59:00 Olya problem 10:15: [id number] 00 Elimination urinary Eliminatio Resolve 2018-07-24 Cherrise urgency n d 3-11 12:48:00 Olya 10:15: [id number] 00 Pain frequent Pain Mgmt Resolve 2018-07-24 Stephany pain d 3-13 12:48:00 [place] 12:48: h [id number] 00 Elimination urinary Eliminatio Resolve 2018-09-13 Cherrise urgency n d 3-15 13:20:00 [place] 12:40: [id number] 00 Musculoskel requires Musculoske Unknown Cherrise etal human letal 3-15 [place] assist to 12:40: [id number] leave home 00 Respiratory lung sounds Respirator Resolve 2018-09-13 Christel deficit y d - 13:20:00 Jeb 15:19: [id number] 00 Safety fire risk Safety Resolve 2018-10-25 Christel present d 3 15:10:00 Jeb 15:19: [id number] 00 Elimination urinary Eliminatio Resolve 2018-09-13 Cherrise frequency n d 4-08 13:20:00 [place] 12:50: [id number] 00 Integument surgical Integument Active Cherrise wound 4-24 Olya present 11:45: [id number] 00 Integument skin Integument Active Cherrise integrity 4-24 Olya risk 11:45: [id number] 00 Integument other wound Integument Active Cherrise present 4- Olya 11:45: [id number] 00 Nutrition knowledge/s Nutrition Active Cherrise kill 09-04 [place] deficit: pt 11:45: [id number] 00 Nutrition nutritional Nutrition Active Cherrise restriction 09-04 Olya s 11:45: [id number] 00 Musculoskel transfer Musculoske Resolve 2018-10-25 Cherrise etal assistance letal d 09-04 15:10:00 [place] required 11:45: [id number] 00 Musculoskel requires Musculoske Resolve 2018-10-25 Cherrise etal human letal d 09-04 15:10:00 [place] assist to 11:45: [id number] leave home 00 Elimination constipatio Eliminatio Resolve 2018-09-13 Cherrise n n d 09-09 13:20:00 Olya 14:10: [id number] 00 Pain frequent Pain Mgmt Resolve 2018-10-25 Madelaine pain d 08 [facility] 10[facility]: [id number] 00 Respiratory smoker Respirator Resolve 2018-10-25 Cherrise y d - 15:10:00 Olya 11:50: [id number] 00 Elimination urinary Eliminatio Resolve 2018-10-25 Cherrise urgency n d - 15:10:00 Olya 11:50: [id number] 00 Cardio hypertensio Cardiovasc Resolve 2018-11-11 Cherrise n ular d 10-09 14:00:00 [place] 11:20: [id number] 00 Endo/Sen glucose Endo/Sen Resolve 2018-10-25 Cherrise tolerance d 10-09 15:10:00 Olya problem 11:20: [id number] 00 Elimination urinary Eliminatio Resolve 2018-10-25 Conchita frequency n d 10-16 15:10:00 Shimon, 14:00: [id number] 00 Cardio edema Cardiovasc Resolve 2018-11-11 Cherrise ular d 6- 14:00:00 [place] 11:00: [id number] 00 Safety risk for Safety Resolve 2018-11-01 Conchita hospitaliza d 6-17 14:00:00 daniel Robins 14:30: [id number] 00 Respiratory smoker Respirator Resolve 2018-11-11 Cherrise y d 6-19 14:00:00 Olya 10:25: [id number] 00 Endo/Sen glucose Endo/Sen Resolve 2018-11-11 Cherrise tolerance d 6-19 14:00:00 [place] problem 10:25: [id number] 00 Elimination urinary Eliminatio Resolve 2018-11-11 Cherrise urgency n d 6-19 14:00:00 Olya 10:25: [id number] 00 Elimination urinary Eliminatio Resolve 2018-11-11 Cherrise frequency n d 6-19 14:00:00 Olya 10:25: [id number] 00 Musculoskel requires Musculoske Resolve 2018-12-23 Cherrise etal human letal d 6- 11:00:00 Olya assist to 10:25: [id number] leave home 00 Musculoskel requires Musculoske Resolve 2018-12-23 Kerry etal special letal d 6- 11:00:00 Maria Antonia transportat 18:30: [id number] ion 00 Safety fall risk Safety Resolve 2018-12-13 Cherrise factor d 7- 14:40:00 Olya present 14:45: [id number] 00 Neuro impaired Neuro/Emot Resolve 2018-12-13 Madelaine mullen ion d 7- 14:40:00 Jose Angel pettit 14:00: [id number] 00 Safety risk for Safety Resolve 2018-12-13 Madelaine garciaiza d 7-10 14:40:00 Ingrahm tion 14:00: [id number] 00 Cardio edema Cardiovasc Resolve 2018-12-23 Cherrise ular d 7-15 11:00:00 Olya 11:00: [id number] 00 Respiratory smoker Respirator Resolve 2018-12-23 Cherrise y d 7-15 11:00:00 Olya 11:00: [id number] 00 Endo/Sen glucose Endo/Sen Resolve 2019-01-01 Cherrise tolerance d 7-15 15:00:00 Olya problem 11:00: [id number] 00 Elimination urinary Eliminatio Resolve 2018-12-13 Cherrise urgency n d 7-15 14:40:00 [place] 11:00: [id number] 00 Safety sanitation Safety Resolve 2018-12-13 Cherrise hazards d 7-15 14:40:00 [place] present 11:00: [id number] 00 Elimination urinary Eliminatio Resolve 2018-12-13 Cherrise frequency n d 7 14:40:00 Olya 11:15: [id number] 00 Neuro depressive Neuro/Emot Resolve 2019-01-17 Cherrise feelings ion d 12-02 15:25:00 Olya present 11:15: [id number] 00 Cardio hypertensio Cardiovasc Resolve 2018-12-23 Cherrise n ular d 12-04 11:00:00 [place] 14:40: [id number] 00 Musculoskel knowledge/s Musculoske Resolve 2018-12-23 Cherrise etal kill letal d 12-16 11:00:00 Olya deficit: cg 14:15: [id number] 00 Elimination urinary Eliminatio Resolve 2018-12-23 Cherrise urgency n d 12-20 11:00:00 [place] 10:10: [id number] 00 Neuro depressive Neuro/Emot Unknown Cherrise feelings ion 12-20 Olya present 10:10: [id number] 00 Neuro impaired Neuro/Emot Resolve 2019-01-17 Cherrise decision-ma ion d 12-20 15:25:00 [place] wilver 10:10: [id number] 00 Safety risk for Safety Resolve 2018-12-23 Cherrise hospitaliza d 12-20 11:00:00 Olya tion 10:10: [id number] 00 Sensory impaired Sensory Resolve 2019-01-17 Madelaine verbal d 12-23 15:25:00 Ingrahm communicati 11:00: [id number] on 00 Cardio hypertensio Cardiovasc Resolve 2019-01-01 Cherrise n ular d 8-14 15:00:00 Olya 12:00: [id number] 00 Respiratory smoker Respirator Resolve 2019-01-01 Cherrise y d 8-14 15:00:00 [place] 12:00: [id number] 00 Elimination urinary Eliminatio Resolve 2019-01-01 Cherrise urgency n d 8-14 15:00:00 Olya 12:00: [id number] 00 Neuro anxiety Neuro/Emot Resolve 2019-01-17 Cherrise present ion d 8 15:25:00 Olya 12:00: [id number] 00 Safety risk for Safety Resolve 2019-01-01 Cherrise hospitaliza d 8 15:00:00 [place] tion 12:00: [id number] 00 Musculoskel requires Musculoske Unknown Cherrise etal human letal 12-25 [place] assist to 12:00: [id number] leave home 00 Respiratory smoker Respirator Resolve 2019-01-17 Cherrise y d 01-03 15:25:00 Olya 11:45: [id number] 00 Elimination urinary Eliminatio Resolve 2019-01-17 Cherrise urgency n d 01-03 15:25:00 Olya 11:45: [id number] 00 Safety fall risk Safety Resolve 2019-01-06 Cherrise factor d 01-03 12:25:00 [place] present 11:45: [id number] 00 Safety risk for Safety Resolve 2019-02-12 Cherrise hospitaliza d 01-03 15:15:00 Olya tion 11:45: [id number] 00 Neuro memory Neuro/Emot Active Cherrise deficit ion 01-13 Olya needing 11:20: [id number] supervision 00 Elimination urinary Eliminatio Resolve 2019-01-17 Madelaine incontinenc n d 01-17 15:25:00 Ingrahm e 15:25: [id number] 00 Safety fall risk Safety Resolve 2019-01-17 Desiree factor d 01-17 15:25:00 Rashid present 15:25: [id number] 00 Cardio hypertensio Cardiovasc Resolve 2019-01-24 Narciso aguilar ular d 01-20 09:00:00 Olya 11:15: [id number] 00 Safety sanitation Safety Resolve 2019-02-12 Cherrise hazards d 01-20 15:15:00 Olya present 11:15: [id number] 00 Respiratory smoker Respirator Resolve 2019-01-24 Madelaine y d 01-24 09:00:00 Ingrahm 09:00: [id number] 00 Musculoskel transfer Musculoske Active Cherrise etal assistance letal 01-29 Olya required 13:25: [id number] 00 Musculoskel requires Musculoske Active Cherrise etal human letal 01-29 [place] assist to 13:25: [id number] leave home 00 Musculoskel requires Musculoske Active Cherrise etal special letal 01-29 Olya transportat 13:25: [id number] ion 00 Respiratory smoker Respirator Resolve 2019-02-05 Cherrise y d 02-03 15:10:00 Olya 10:00: [id number] 00 Elimination urinary Eliminatio Resolve 2019-02-12 Cherrise urgency n d 02-03 15:15:00 [place] 10:00: [id number] 00 Safety fall risk Safety Resolve 2019-02-12 Cherrise factor d 9 15:15:00 [place] present 11:15: [id number] 00 Cardio hypertensio Cardiovasc Resolve 2018-052019-02-19 Narciso hernandez d 0-04 14:00:00 Olya 11:50: [id number] 00 Respiratory smoker Respirator Resolve 2018-052019-02-19 Narciso y d 0-07 14:00:00 [place] 11:30: [id number] 00 Safety risk for Safety Resolve 2018-052019-03-12 Madelaine navarrete d 0-09 15:00:00 Ingrahm tion 14:00: [id number] 00 Cardio hypertensio Cardiovasc Resolve 2018-052019-03-19 Cherrise n ular d 0-18 14:00:00 [place] 12:30: [id number] 00 Respiratory smoker Respirator Resolve 2018-052019-03-12 Cherrise y d 018 15:00:00 [place] 12:30: [id number] 00 Elimination urinary Eliminatio Resolve 2018-052019-03-12 Cherrise urgency n d 0-18 15:00:00 Olya 12:30: [id number] 00 Respiratory smoker Respirator Resolve 2018-052019-03-19 Cherrise y d 04 14:00:00 [place] 09:40: [id number] 00 Elimination urinary Eliminatio Resolve 2018-052019-03-19 Cherrise urgency n d 05-17 14:00:00 [place] 09:40: [id number] 00 Safety risk for Safety Active 2018-05 Cherrise hospitaliza 05-17 [place] tion 09:40: [id number] 00 Safety fall risk Safety Active 2018-05 Madelaine factor 05-19 Ingrahm present 14:00: [id number] 00 Respiratory smoker Respirator Active 2018-05 Cherrise y 05-28 [place] 10:55: [id number] 00 Elimination urinary Eliminatio Active 2018-05 Cherrise incontinenc n 05-28 [place] e 10:55: [id number] 00 Elimination urinary Eliminatio Active 2018-05 Cherrise urgency n 05-28 [place] 10:55: [id number] 00 Neuro depressive Neuro/Emot Active 2018-05 Cherrise feelings ion 05-28 [place] present 10:55: [id number] 00 Neuro impaired Neuro/Emot Active 2018-05 Cherrise decision-ma ion 05-28 [place] wilver 10:55: [id number] 00 Safety sanitation Safety Active 2018-05 Cherrise hazards 05-28 [place] present 10:55: [id number] 00 Cardio hypertensio Cardiovasc Active 2018-05 Cherrise n ular 06-07 [place] 11:30: [id number] 00 Allergies, Adverse Reactions, Alerts Allergy Allergy [...] Unknown Unknown 20 mg 20 mg 01-26 ,[place] tablet tablet losartan losartan 2017- No [place] Unknown Unknown 100 mg 100 mg 01-26 ,[place] tablet tablet metFORMIN metFORMIN No [place] Unknown Unknown 1,000 mg 1,000 mg 01-26 ,[place] tablet tablet Dulera 200 Dulera 200 2018- No [place] Unknown Unknown mcg-5 mcg-5 01-2616 Kyle COVARRUBIAS mcg/actuati mcg/actuati on HFA on HFA aerosol aerosol inhaler inhaler amLODIPine amLODIPine 2017- No [place] Unknown Unknown 10 mg 10 mg 01-26 ,[facility] tablet tablet lisinopril lisinopril 2017-05- No [place] Unknown Unknown 20 mg 20 mg 0- ,[facility] tablet tablet oxyCODONE 5 oxyCODONE 5 No Rafita Unknown Unknown mg tablet mg tablet 06-20 Simona COVARRUBIAS lisinopril lisinopril 2018- No Rafita Unknown Unknown 20 mg 20 mg 06-[facility] l[facility] lisinopril No Rafita Unknown Unknown 30 mg 30 mg -[address] [facility] tablet tablet hydroCHLORO hydroCHLORO No Rafita Unknown Unknown thiazide 50 thiazide 50 -15 Simona COVARRUBIAS mg tablet mg tablet nystatin nystatin No Rafita Unknown Unknown 100,000 100,000 - Simona COVARRUBIAS unit/gram unit/gram topical topical ointment ointment sulfamethox sulfamethox 2018- No Heather Unknown Unknown azole 800 azole 800 11-04-08 ,Adam A mg-trimetho mg-trimetho prim 160 mg prim 160 mg tablet tablet Symbicort Symbicort No Rafita Unknown Unknown 160 mcg-4.5 160 mcg-4.5 7-16 Simona COVARRUBIAS mcg/actuati mcg/actuati on HFA on HFA aerosol aerosol inhaler inhaler Vital Signs Vital Name Observation Time Observation Value Comments SYSTOLIC mm[Hg] 2019-04-11 18:09:06 120 mm[Hg] mm[Hg] Method: Sit SYSTOLIC mm[Hg] 1840-05-13 00:00:00 127 mm[Hg] mm[Hg] Method: Lie DIASTOLIC mm[Hg] 2019-04-11 18:09:06 93 mm[Hg] mm[Hg] Method: Sit DIASTOLIC mm[Hg] 1840-05-13 00:00:00 83 mm[Hg] mm[Hg] Method: Lie PULSE 2019-04-11 18:09:06 88 /min /min RESP RATE 2019-04-11 18:09:06 16 /min /min TEMP 2019-04-11 18:09:06 96 [degF] Procedures This patient has no known procedures. Results This patient has no known results.
--- OUTSIDE RECORDS SUMMARY | 2019-05-09 12:29 | XMS REPORT ---
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-26 Ingrm infct infct [id number] causing causing diseases diseases classd classd elswhr elswhr Type 2 Type 2 Diagnosis Active Madelaine diabetes diabetes 05-14 [facility] mellitus mellitus [id number] with with diabetic diabetic neuropathy, neuropathy, unsp unsp Essential Essential Diagnosis Active Madelaine (primary) (primary) 05-14 [facility] hypertensio hypertensio [id number] n n Chronic Chronic Diagnosis Active Madelaine obstructive obstructive 05-14 [facility] pulmonary pulmonary [id number] disease, disease, unspecified unspecified G47.33 G47.33 Diagnosis Active Madelaine 05-14 [facility] [id number] Pain frequent Pain Mgmt Resolve 2018-06-14 Darya pain d 01-26 14:43:00 (Tejas) 09:45: Analilia 00 [id number] Cardio edema Cardiovasc Resolve 2018-02-18 Darya ular d 01-26 13:35:00 (Tejas) 09:45: Analilia 00 [id number] Cardio knowledge/s Cardiovasc Resolve 2018-02-18 Darya kill ular d 01-26 13:35:00 (Tejas) deficit: pt 09:45: Analilia 00 [id number] Respiratory dyspnea Respirator Resolve 2018-04-24 Darya present y d 01-26 15:19:00 (Tejas) 09:45: Analilia 00 [id number] Respiratory CPAP Respirator Resolve 2018-04-24 Quality treatments y d 9-15 15:19:00 Realtime7 in home 09:45: 00 Endo/Sen diabetic Endo/Sen Resolve 2018-02-25 Darya foot care d 9-15 14:00:00 (Tejas) 09:45: Billingsley [id number] Integument surgical Integument Resolve 2018-03-25 Darya wound d 9-15 14:35:00 (Tejas) present 09:45: Billingsley [id number] Integument skin Integument Resolve 2018-03-25 Darya integrity d 9-15 14:35:00 (Tejas) risk 09:45: Billingsley [id number] Integument other wound Integument Resolve 2018-03-25 Quality present d 9-15 14:35:00 Realtime7 09:45: 00 Nutrition nutritional Nutrition Resolve 2018-03-15 Darya restriction d 9-15 15:24:00 (Tejas) s 09:45: Billingsley [id number] Elimination urinary Eliminatio Resolve 2018-03-01 Darya incontinenc n d 9-15 09:00:00 (Tejas) e 09:45: Billingsley 00 [id number] Neuro confusion Neuro/Emot Resolve 2018-11-11 Darya present ion d 9-15 14:00:00 (Tejas) 09:45: Billingsley 00 [id number] Neuro anxiety Neuro/Emot Resolve 2018-11-11 Darya present ion d 9-15 14:00:00 (Tejas) 09:45: Billingsley [id number] Activity ADL Activity Resolve 2018-11-11 Darya assistance d 9-15 14:00:00 (Tejas) required 09:45: Billingsley [id number] Safety sanitation Safety Resolve 2018-10-25 Darya hazards d 9-15 15:10:00 (Tejas) present 09:45: Billingsley [id number] Safety fall risk Safety Resolve 2018-10-25 Darya factor d 9-15 15:10:00 (Tejas) present 09:45: Billingsley [id number] Safety risk for Safety Resolve 2018-10-25 Darya hospitaliza d 9-15 15:10:00 (Tejas) tion 09:45: Billingsley 00 [id number] Safety can be left Safety Resolve 2018-11-11 Darya alone for d 9-15 14:00:00 (Tejas) only short 09:45: Billingsley periods 00 [id number] Medication oral med Meds Resolve 2018-03-15 Darya assistance d 9-15 15:24:00 (Tejas) required 09:45: Billingsley [id number] Medication knowledge/s Meds Resolve 2018-03-15 Darya kill d 9-15 15:24:00 (Tejas) deficit: pt 09:45: Billingsley [id number] Medication potential Meds Resolve 2018-03-15 Darya clinically d 9-15 15:24:00 (Tejas) significant 09:45: Billingsley medication [id number] issue Musculoskel transfer Musculoske Unknown Quality etal assistance letal 01-26 Realtime7 required 09:45: 00 Sensory impaired Sensory Resolve 2018-11-11 Quality verbal d 917 14:00:00 Realtime7 communicati 14:00: on 24 Endo/Sen glucose Endo/Sen Resolve 2018-02-25 Cherrise tolerance d 01-31 14:00:00 [place] problem 13:25: [id number] 00 Nutrition knowledge/s Nutrition Resolve 2018-03-15 Cherrise kill d 01-31 15:24:00 Olya deficit: pt 13:25: [id number] 00 Elimination urinary Eliminatio Resolve 2018-03-01 Cherrise urgency n d 01-31 09:00:00 [place] 13:25: [id number] 00 Elimination urinary Eliminatio Resolve 2018-03-01 Cherrise frequency n d 01-31 09:00:00 Olya 13:25: [id number] 00 Neuro impaired Neuro/Emot Resolve 2018-11-11 Cherrise decision-ma ion d 01-31 14:00:00 [place] wilver 13:25: [id number] 00 Musculoskel requires Musculoske Unknown Cherrise etal human letal 9-20 Olya assist to 13:25: [id number] leave home 00 Cardio hypertensio Cardiovasc Resolve 2018-02-18 Cherrise n ular d 9-24 13:35:00 Olya 13:05: [id number] 00 Musculoskel requires Musculoske Unknown 2017-05 Cherrise etal human letal 0-05 [place] assist to 13:40: [id number] leave home 00 Cardio hypertensio Cardiovasc Resolve 2017-052018-03-25 Cherrise n ular d 0-12 14:35:00 [place] 12:45: [id number] 00 Respiratory smoker Respirator Resolve 2017-052018-04-24 Cherrise y d 0-12 15:19:00 [place] 12:45: [id number] 00 Musculoskel transfer Musculoske Unknown 2017-05 Cherrise etal assistance letal 0-12 [place] required 12:45: [id number] 00 Endo/Sen glucose Endo/Sen Resolve 2017-052018-03-22 Cherrise tolerance d 0-22 15:29:00 Olya problem 13:50: [id number] 00 Elimination urinary Eliminatio Resolve 2017-052018-03-15 Cherrise incontinenc n d 0-22 15:24:00 Olya e 13:50: [id number] 00 Elimination urinary Eliminatio Resolve 2017-052018-03-15 Cherrise urgency n d 0-22 15:24:00 Olya 13:50: [id number] 00 Elimination urinary Eliminatio Resolve 2017-052018-03-15 Cherrise frequency n d 0-22 15:24:00 [place] 13:50: [id number] 00 Endo/Sen glucose Endo/Sen Resolve 2017-052018-03-22 Cherrise testing d 0-29 15:29:00 Olya dependence 13:30: [id number] 00 Nutrition knowledge/s Nutrition Resolve 2017-052018-03-25 Cherrise kill d 1-05 14:35:00 Olya deficit: pt 11:30: [id number] 00 Elimination urinary Eliminatio Resolve 2017-052018-03-22 Cherrise frequency n d 1-05 15:29:00 Olya 11:30: [id number] 00 Pain frequent Pain Mgmt Resolve 2017-052018-06-14 Stephany pain d 05-25 14:43:00 [place] 14:35: h [id number] 00 Nutrition nutritional Nutrition Resolve 2017-052018-03-25 Stephany restriction d 05-25 14:35:00 [place] s 14:35: h [id number] 00 Elimination urinary Eliminatio Resolve 2017-052018-04-05 Stephany incontinenc n d 05-25 14:45:00 [place] e 14:35: h [id number] 00 Elimination urinary Eliminatio Resolve 2017-052018-04-05 Stephany frequency n d 05-25 14:45:00 [place] 14:35: h [id number] 00 Musculoskel requires Musculoske Unknown 2017-05 Stephany etal special letal 05-25 [place] transportat 14:35: h [id number] ion 00 Cardio hypertensio Cardiovasc Resolve 2017-052018-04-12 Cherrise n ular d 05-27 13:46:00 Olya 12:00: [id number] 00 Endo/Sne glucose Endo/Sen Resolve 2017-052018-04-05 Cherrise tolerance d 05-27 14:45:00 [place] problem 12:00: [id number] 00 Elimination urinary Eliminatio Resolve 2017-052018-04-05 Cherrise urgency n d 06-01 14:45:00 [place] 12:45: [id number] 00 Elimination urinary Eliminatio Resolve 2017-052018-04-12 Cherrise urgency n d 06-08 13:46:00 [place] 10:55: [id number] 00 Elimination urinary Eliminatio Resolve 2017-052018-04-12 Cherrise frequency n d 06-08 13:46:00 Olya 10:55: [id number] 00 Endo/Sen glucose Endo/Sen Resolve 2017-052018-04-24 Cherrise tolerance d 06-16 15:19:00 [place] problem 12:20: [id number] 00 Elimination urinary Eliminatio Resolve 2017-052018-04-24 Cherrise frequency n d 06-16 15:19:00 Olya 12:20: [id number] 00 Cardio hypertensio Cardiovasc Resolve 2017-052018-04-24 Cherrise n ular d 2- 15:19:00 Olya 10:35: [id number] 00 Elimination urinary Eliminatio Resolve 2017-052018-04-24 Cherrise urgency n d 2 15:19:00 [place] 10:35: [id number] 00 Elimination urinary Eliminatio Resolve 2017-052018-04-24 Stephany incontinenc n d 06-25 15:19:00 [place] e 15:19: h [id number] 00 Cardio hypertensio Cardiovasc Resolve 2017-052018-06-07 Cherrise n ular d 2-14 13:31:00 [place] 13:15: [id number] 00 Respiratory dyspnea Respirator Active 2017-05 Cherrise present y 06-27 [place] 13:15: [id number] 00 Respiratory CPAP Respirator Active 2017-05 Cherrise treatments y 06-27 [place] in home 13:15: [id number] 00 Respiratory smoker Respirator Resolve 2017-052018-06-03 Cherrise y d 2-14 14:08:00 [place] 13:15: [id number] 00 Elimination urinary Eliminatio Resolve 2017-052018-05-31 Cherrise urgency n d 2-14 14:21:00 [place] 13:15: [id number] 00 Elimination urinary Eliminatio Resolve 2017-052018-05-31 Cherrise frequency n d 2-14 14:21:00 Olya 13:15: [id number] 00 Elimination diarrhea Eliminatio Resolve 2017-052018-05-31 Cherrise n d 2-14 14:21:00 Olya 13:15: [id number] 00 Endo/Sen glucose Endo/Sen Resolve 2017-052018-05-31 Cherrise tolerance d 2-24 14:21:00 [place] problem 13:10: [id number] 00 Infection s/s of Infection Active Stephany infection 05-31 [place] 14:21: h [id number] 00 Respiratory smoker Respirator Resolve 2018-09-13 Cherrise y d 06-05 13:20:00 Olya 13:35: [id number] 00 Endo/Sen glucose Endo/Sen Resolve 2018-06-21 Cherrise tolerance d 06-05 10:26:00 Oly[place] problem 13:35: [id number] 00 Elimination urinary Eliminatio Resolve 2018-06-14 Cherrise urgency n d 06-05 14:43:00 Olya 13:35: [id number] 00 Elimination urinary Eliminatio Resolve 2018-06-14 Cherrise frequency n d 06-05 14:43:00 Olya 13:35: [id number] 00 Cardio hypertensio Cardiovasc Resolve 2018-09-13 Cherrise n ular d 06-10 13:20:00 [place] 11:00: [id number] 00 Elimination urinary Eliminatio Resolve 2018-06-21 Cherrise urgency n d 06-19 10:26:00 [place] 10:50: [id number] 00 Elimination urinary Eliminatio Resolve 2018-06-21 Stephany frequency n d 06-21 10:26:00 [place] 10:26: h [id number] 00 Endo/Sen glucose Endo/Sen Resolve 2018-06-28 Cherrise tolerance d 2- 14:32:00 Oly[place] problem 11:25: [id number] 00 Elimination urinary Eliminatio Resolve 2018-06-28 Cherrise urgency n d 2- 14:32:00 [place] 11:25: [id number] 00 Elimination urinary Eliminatio Resolve 2018-06-28 Cherrise frequency n d 2- 14:32:00 Olya 11:50: [id number] 00 Endo/Sen glucose Endo/Sen Resolve 2018-07-12 Cherrise tolerance d 07-03 13:43:00 [place] problem 11:50: [id number] 00 Elimination urinary Eliminatio Resolve 2018-07-12 Cherrise urgency n d 07-08 13:43:00 Olya 12:30: [id number] 00 Neuro depressive Neuro/Emot Resolve 2018-11-11 Cherrise feelings ion d 2 14:00:00 [place] present 12:30: [id number] 00 Elimination urinary Eliminatio Resolve 2018-07-12 Cherrise frequency n d 2-27 13:43:00 [place] 10:45: [id number] 00 Elimination urinary Eliminatio Resolve 2018-07-24 Stephany frequency n d 3-06 12:48:00 [place] 11:53: h [id number] 00 Endo/Sen glucose Endo/Sen Resolve 2018-09-18 Cherrise tolerance d 3-11 10:59:00 Oly[place] problem 10:15: [id number] 00 Elimination urinary Eliminatio Resolve 2018-07-24 Cherrise urgency n d 3-11 12:48:00 Olya 10:15: [id number] 00 Pain frequent Pain Mgmt Resolve 2018-07-24 Stephany pain d 3-13 12:48:00 [place] 12:48: h [id number] 00 Elimination urinary Eliminatio Resolve 2018-09-13 Cherrise urgency n d 3-15 13:20:00 [place] 12:40: [id number] 00 Musculoskel requires Musculoske Unknown Cherrise etal human letal 3-15 [place] assist to 12:40: [id number] leave home 00 Respiratory lung sounds Respirator Resolve 2018-09-13 Christel deficit y d - 13:20:00 Jeb 15:19: [id number] 00 Safety fire risk Safety Resolve 2018-10-25 Christel present d 3 15:10:00 Jeb 15:19: [id number] 00 Elimination urinary Eliminatio Resolve 2018-09-13 Cherrise frequency n d 4-08 13:20:00 [place] 12:50: [id number] 00 Integument surgical Integument Active Cherrise wound 4-24 Olya present 11:45: [id number] 00 Integument skin Integument Active Cherrise integrity 4-24 Olya risk 11:45: [id number] 00 Integument other wound Integument Active Cherrise present 4- Olya 11:45: [id number] 00 Nutrition knowledge/s Nutrition Active Cherrise kill 09-04 [place] deficit: pt 11:45: [id number] 00 Nutrition nutritional Nutrition Active Cherrise restriction 09-04 Olya s 11:45: [id number] 00 Musculoskel transfer Musculoske Resolve 2018-10-25 Cherrise etal assistance letal d 09-04 15:10:00 [place] required 11:45: [id number] 00 Musculoskel requires Musculoske Resolve 2018-10-25 Cherrise etal human letal d 09-04 15:10:00 [place] assist to 11:45: [id number] leave home 00 Elimination constipatio Eliminatio Resolve 2018-09-13 Cherrise n n d 09-09 13:20:00 Olya 14:10: [id number] 00 Pain frequent Pain Mgmt Resolve 2018-10-25 Madelaine pain d 08 15:10:00 [facility] 10:59: [id number] 00 Respiratory smoker Respirator Resolve 2018-10-25 Cherrise y d - 15:10:00 Olya 11:50: [id number] 00 Elimination urinary Eliminatio Resolve 2018-10-25 Cherrise urgency n d - 15:10:00 Olya 11:50: [id number] 00 Cardio hypertensio Cardiovasc Resolve 2018-11-11 Cherrise n ular d 10-09 14:00:00 [place] 11:20: [id number] 00 Endo/Sen glucose Endo/Sen Resolve 2018-10-25 Cherrise tolerance d 10-09 15:10:00 Olya problem 11:20: [id number] 00 Elimination urinary Eliminatio Resolve 2018-10-25 Conchita frequency n d 10-16 15:10:00 Shimon, 14:00: [id number] 00 Cardio edema Cardiovasc Resolve 2018-11-11 Cherrise ular d 6- 14:00:00 [place] 11:00: [id number] 00 Safety risk for Safety Resolve 2018-11-01 Conchita hospitaliza d 6-17 14:00:00 daniel Robins 14:30: [id number] 00 Respiratory smoker Respirator Resolve 2018-11-11 Cherrise y d 6-19 14:00:00 Olya 10:25: [id number] 00 Endo/Sen glucose Endo/Sen Resolve 2018-11-11 Cherrise tolerance d 6-19 14:00:00 [place] problem 10:25: [id number] 00 Elimination urinary Eliminatio Resolve 2018-11-11 Cherrise urgency n d 6-19 14:00:00 Olya 10:25: [id number] 00 Elimination urinary Eliminatio Resolve 2018-11-11 Cherrise frequency n d 6-19 14:00:00 Olya 10:25: [id number] 00 Musculoskel requires Musculoske Resolve 2018-12-23 Cherrise etal human letal d 6- 11:00:00 Olya assist to 10:25: [id number] leave home 00 Musculoskel requires Musculoske Resolve 2018-12-23 Kerry etal special letal d 6- 11:00:00 Maria Antonia transportat 18:30: [id number] ion 00 Safety fall risk Safety Resolve 2018-12-13 Cherrise factor d 7- 14:40:00 Olya present 14:45: [id number] 00 Neuro impaired Neuro/Emot Resolve 2018-12-13 Madelaine mullen ion d 7- 14:40:00 Jose Angel pettit 14:00: [id number] 00 Safety risk for Safety Resolve 2018-12-13 Madelaine garciaiza d 7-10 14:40:00 Ingrahm tion 14:00: [id number] 00 Cardio edema Cardiovasc Resolve 2018-12-23 Cherrise ular d 7-15 11:00:00 Olya 11:00: [id number] 00 Respiratory smoker Respirator Resolve 2018-12-23 Cherrise y d 7-15 11:00:00 Olya 11:00: [id number] 00 Endo/Sen glucose Endo/Sen Resolve 2019-01-01 Cherrise tolerance d 7-15 15:00:00 Olya problem 11:00: [id number] 00 Elimination urinary Eliminatio Resolve 2018-12-13 Cherrise urgency n d 7-15 14:40:00 [place] 11:00: [id number] 00 Safety sanitation Safety Resolve 2018-12-13 Cherrise hazards d 7-15 14:40:00 [place] present 11:00: [id number] 00 Elimination urinary Eliminatio Resolve 2018-12-13 Cherrise frequency n d 7 14:40:00 Olya 11:15: [id number] 00 Neuro depressive Neuro/Emot Resolve 2019-01-17 Cherrise feelings ion d 12-02 15:25:00 Olya present 11:15: [id number] 00 Cardio hypertensio Cardiovasc Resolve 2018-12-23 Cherrise n ular d 12-04 11:00:00 [place] 14:40: [id number] 00 Musculoskel knowledge/s Musculoske Resolve 2018-12-23 Cherrise etal kill letal d 12-16 11:00:00 Olya deficit: cg 14:15: [id number] 00 Elimination urinary Eliminatio Resolve 2018-12-23 Cherrise urgency n d 12-20 11:00:00 [place] 10:10: [id number] 00 Neuro depressive Neuro/Emot Unknown Cherrise feelings ion 12-20 Olya present 10:10: [id number] 00 Neuro impaired Neuro/Emot Resolve 2019-01-17 Cherrise decision-ma ion d 12-20 15:25:00 [place] wilver 10:10: [id number] 00 Safety risk for Safety Resolve 2018-12-23 Cherrise hospitaliza d 12-20 11:00:00 Olya tion 10:10: [id number] 00 Sensory impaired Sensory Resolve 2019-01-17 Madelaine verbal d 12-23 15:25:00 Ingrahm communicati 11:00: [id number] on 00 Cardio hypertensio Cardiovasc Resolve 2019-01-01 Cherrise n ular d 8-14 15:00:00 Olya 12:00: [id number] 00 Respiratory smoker Respirator Resolve 2019-01-01 Cherrise y d 8-14 15:00:00 [place] 12:00: [id number] 00 Elimination urinary Eliminatio Resolve 2019-01-01 Cherrise urgency n d 8-14 15:00:00 Olya 12:00: [id number] 00 Neuro anxiety Neuro/Emot Resolve 2019-01-17 Cherrise present ion d 8-14 15:25:00 Olya 12:00: [id number] 00 Safety risk for Safety Resolve 2019-01-01 Cherrise hospitaliza d 8-14 15:00:00 [place] tion 12:00: [id number] 00 Musculoskel requires Musculoske Unknown Cherrise etal human letal 12-25 [place] assist to 12:00: [id number] leave home 00 Respiratory smoker Respirator Resolve 2019-01-17 Cherrise y d 01-03 15:25:00 Olya 11:45: [id number] 00 Elimination urinary Eliminatio Resolve 2019-01-17 Cherrise urgency n d 01-03 15:25:00 Olya 11:45: [id number] 00 Safety fall risk Safety Resolve 2019-01-06 Cherrise factor d 8 12:25:00 [place] present 11:45: [id number] 00 Safety risk for Safety Resolve 2019-02-12 Cherrise hospitaliza d 01-03 15:15:00 Olya tion 11:45: [id number] 00 Neuro memory Neuro/Emot Resolve 2019-03-31 Cherrise deficit ion d 01-13 15:30:00 [place] needing 11:20: [id number] supervision 00 Elimination urinary Eliminatio Resolve 2019-01-17 Madelaine incontinenc n d 01-17 15:25:00 Ingrahm e 15:25: [id number] 00 Safety fall risk Safety Resolve 2019-01-17 Desiree factor d 9-06 15:25:00 Rashid present 15:25: [id number] 00 Cardio hypertensio Cardiovasc Resolve 2019-01-24 Narciso aguilar ular d 01-20 09:00:00 [place] 11:15: [id number] 00 Safety sanitation Safety Resolve 2019-02-12 Cherrise hazards d 01-20 15:15:00 [place] present 11:15: [id number] 00 Respiratory smoker Respirator Resolve 2019-01-24 Madelaine y d 01-24 09:00:00 Ingrahm 09:00: [id number] 00 Musculoskel transfer Musculoske Active Cherrise etal assistance letal 01-29 Olya required 13:25: [id number] 00 Musculoskel requires Musculoske Active Cherrise etal human letal 01-29 [place] assist to 13:25: [id number] leave home 00 Musculoskel requires Musculoske Active Cherrise etal special letal 01-29 [place] transportat 13:25: [id number] ion 00 Respiratory smoker Respirator Resolve 2019-02-05 Cherrise y d 02-03 15:10:00 [place] 10:00: [id number] 00 Elimination urinary Eliminatio Resolve 2019-02-12 Cherrise urgency n d 02-03 15:15:00 [place] 10:00: [id number] 00 Safety fall risk Safety Resolve 2019-02-12 Cherrise factor d 02-07 15:15:00 [place] present 11:15: [id number] 00 Cardio hypertensio Cardiovasc Resolve 2018-052019-02-19 Narciso hernandez d 0-04 14:00:00 Olya 11:50: [id number] 00 Respiratory smoker Respirator Resolve 2018-052019-02-19 Gigie y d 0-07 14:00:00 Olya 11:30: [id number] 00 Safety risk for Safety Resolve 2018-052019-03-12 Madelaine landon d 009 15:00:00 Ingrahm tion 14:00: [id number] 00 Cardio hypertensio Cardiovasc Resolve 2018-052019-03-19 Cherrise n ular d 0-18 14:00:00 [place] 12:30: [id number] 00 Respiratory smoker Respirator Resolve 2018-052019-03-12 Cherrise y d 0-18 15:00:00 Olya 12:30: [id number] 00 Elimination urinary Eliminatio Resolve 2018-052019-03-12 Cherrise urgency n d 0-18 15:00:00 Olya 12:30: [id number] 00 Respiratory smoker Respirator Resolve 2018-052019-03-19 Cherrise y d 1-04 14:00:00 Olya 09:40: [id number] 00 Elimination urinary Eliminatio Resolve 2018-052019-03-19 Cherrise urgency n d 1-04 14:00:00 [place] 09:40: [id number] 00 Safety risk for Safety Resolve 2018-052019-03-31 Cherrise hospitaliza d 1-04 15:30:00 [place] tion 09:40: [id number] 00 Safety fall risk Safety Resolve 2018-052019-03-31 Madelaine factor d 1-06 15:30:00 Ingrahm present 14:00: [id number] 00 Elimination urinary Eliminatio Resolve 2018-052019-03-31 Madelaine incontinenc n d 1-13 15:30:00 Ingrahm e 15:30: [id number] 00 Respiratory smoker Respirator Resolve 2018-052019-03-31 Cherrise y d 1-15 15:30:00 [place] 10:55: [id number] 00 Elimination urinary Eliminatio Resolve 2018-052019-03-31 Cherrise urgency n d 1-15 15:30:00 [place] 10:55: [id number] 00 Neuro depressive Neuro/Emot Resolve 2018-052019-03-31 Cherrise feelings ion d 115 15:30:00 [place] present 10:55: [id number] 00 Neuro impaired Neuro/Emot Resolve 2018-052019-03-31 Cherrise decision-ma ion d 115 15:30:00 Olya wilver 10:55: [id number] 00 Safety sanitation Safety Resolve 2018-052019-03-31 Cherrise hazards d 1-15 15:30:00 [place] present 10:55: [id number] 00 Cardio hypertensio Cardiovasc Active 2018-05 Narciso hernandez 06-07 [place] 11:30: [id number] 00 Allergies, Adverse Reactions, Alerts Allergy Allergy [...] Unknown Unknown mg tablet mg tablet 01-26 [place] atorvastati atorvastati No [place] Unknown Unknown n 20 mg n 20 mg 01-26 [place] tablet tablet furosemide furosemide 2017- No [place] Unknown Unknown 20 mg 20 mg 01-26 [place] tablet tablet losartan losartan 2017- No [place] [...] Unknown Unknown 10 mg 10 mg 01-26 [place] tablet tablet lisinopril lisinopril 2017-05- No [place] Unknown Unknown 20 mg 20 mg -15 [place] tablet tablet oxyCODONE 5 oxyCODONE 5 No [...] No Rafita Unknown Unknown 100,000 100,000 6-15 Simona COVARRUBIAS unit/gram unit/gram topical topical ointment ointment sulfamethox sulfamethox 2018- Heather Unknown Unknown azole 800 azole 800 [...]
--- OUTSIDE RECORDS SUMMARY | 2019-05-09 12:29 | XMS REPORT ---
:1965 Author Organization [facility] Care Team Providers Name Role Phone Unavailable Unavailable Unavailable Problems Condition Condition Condition Status Onset Resolution Last Treating Comments Name Details Category Date Date Treatment Clinician Date Infection Infection Diagnosis Active Madelaine of of 01-26 Ingrm amputation amputation [id number] stump, left stump, left lower lower extremity extremity Methicillin Methicillin Diagnosis Active Madelaine resis staph resis staph 01-26 Ingrm infct infct [id number] causing causing diseases diseases classd classd elswhr elswhr Type 2 Type 2 Diagnosis Active Madelaine diabetes diabetes 05-14 [facility] mellitus mellitus [id number] with with diabetic diabetic neuropathy, neuropathy, unsp unsp Essential Essential Diagnosis Active Madelaine (primary) (primary) 05-14 [facility] hypertensio hypertensio [id number] n n Chronic Chronic Diagnosis Active Madelaine obstructive obstructive 05-14 [facility] pulmonary pulmonary [id number] disease, disease, unspecified unspecified G47.33 G47.33 Diagnosis Active Madelaine 05-14 Ingrahm [id number] Pain frequent Pain Mgmt Resolve 2018-06-14 Darya pain d 01-26 14:43:00 (Tejas) 09:45: Analilia 00 [id number] Cardio edema Cardiovasc Resolve 2018-02-18 Darya ular d 01-26 13:35:00 (Tejas) 09:45: Analilia 00 [id number] Cardio knowledge/s Cardiovasc Resolve 2018-02-18 Darya kill ular d 01-26 13:35:00 (Tejas) deficit: pt 09:45: Analilia 00 [id number] Respiratory dyspnea Respirator Resolve 2018-04-24 Darya present y d 01-26 15:19:00 (Tejas) 09:45: Analilia 00 [id number] Respiratory CPAP Respirator Resolve 2018-04-24 Quality treatments y d 9-15 15:19:00 Realtime7 in home 09:45: 00 Endo/Sen diabetic Endo/Sen Resolve 2018-02-25 Darya foot care d 9-15 14:00:00 (Tejas) 09:45: Billingsley [id number] Integument surgical Integument Resolve 2018-03-25 Darya wound d 9-15 14:35:00 (Tejas) present 09:45: Billingsley [id number] Integument skin Integument Resolve 2018-03-25 Darya integrity d 9-15 14:35:00 (Tejas) risk 09:45: Billingsley [id number] Integument other wound Integument Resolve 2018-03-25 Quality present d 9-15 14:35:00 Realtime7 09:45: 00 Nutrition nutritional Nutrition Resolve 2018-03-15 Darya restriction d 9-15 15:24:00 (Tejas) s 09:45: Billingsley [id number] Elimination urinary Eliminatio Resolve 2018-03-01 Darya incontinenc n d 9-15 09:00:00 (Tejas) e 09:45: Billingsley 00 [id number] Neuro confusion Neuro/Emot Resolve 2018-11-11 Darya present ion d 9-15 14:00:00 (Tejas) 09:45: Billingsley 00 [id number] Neuro anxiety Neuro/Emot Resolve 2018-11-11 Darya present ion d 9-15 14:00:00 (Tejas) 09:45: Billingsley [id number] Activity ADL Activity Resolve 2018-11-11 Darya assistance d 9-15 14:00:00 (Tejas) required 09:45: Billingsley [id number] Safety sanitation Safety Resolve 2018-10-25 Darya hazards d 9-15 15:10:00 (Tejas) present 09:45: Billingsley [id number] Safety fall risk Safety Resolve 2018-10-25 Darya factor d 9-15 15:10:00 (Tejas) present 09:45: Billingsley [id number] Safety risk for Safety Resolve 2018-10-25 Darya hospitaliza d 9-15 15:10:00 (Tejas) tion 09:45: Billingsley 00 [id number] Safety can be left Safety Resolve 2018-11-11 Darya alone for d 9-15 14:00:00 (Tejas) only short 09:45: Billingsley periods 00 [id number] Medication oral med Meds Resolve 2018-03-15 Darya assistance d 9-15 15:24:00 (Tejas) required 09:45: Billingsley [id number] Medication knowledge/s Meds Resolve 2018-03-15 Darya kill d 9-15 15:24:00 (Tejas) deficit: pt 09:45: Billingsley [id number] Medication potential Meds Resolve 2018-03-15 Darya clinically d 9-15 15:24:00 (Tejas) significant 09:45: Billingsley medication [id number] issue Musculoskel transfer Musculoske Unknown Quality etal assistance letal 01-26 Realtime7 required 09:45: 00 Sensory impaired Sensory Resolve 2018-11-11 Quality verbal d 917 14:00:00 Realtime7 communicati 14:00: on 24 Endo/Sen glucose Endo/Sen Resolve 2018-02-25 Cherrise tolerance d 01-31 14:00:00 Olya problem 13:25: [id number] Nutrition knowledge/s Nutrition Resolve 2018-03-15 Cherrise kill d 01-31 15:24:00 Olya deficit: pt 13:25: [id number] 00 Elimination urinary Eliminatio Resolve 2018-03-01 Cherrise urgency n d 01-31 09:00:00 Jackhorn 13:25: [id number] 00 Elimination urinary Eliminatio Resolve 2018-03-01 Cherrise frequency n d 01-31 09:00:00 Olya 13:25: [id number] 00 Neuro impaired Neuro/Emot Resolve 2018-11-11 Cherrise decision-ma ion d 01-31 14:00:00 Jackhorn wilver 13:25: [id number] 00 Musculoskel requires Musculoske Unknown Cherrise etal human letal 9-20 Jackhorn assist to 13:25: [id number] leave home 00 Cardio hypertensio Cardiovasc Resolve 2018-02-18 Cherrise n ular d 9-24 13:35:00 Jackhorn 13:05: [id number] 00 Musculoskel requires Musculoske Unknown 2017-05 Cherrise etal human letal 0-05 Jackhorn assist to 13:40: [id number] leave home 00 Cardio hypertensio Cardiovasc Resolve 2017-052018-03-25 Cherrise n ular d 0-12 14:35:00 Olya 12:45: [id number] 00 Respiratory smoker Respirator Resolve 2017-052018-04-24 Cherrise y d 0-12 15:19:00 Jackhorn 12:45: [id number] 00 Musculoskel transfer Musculoske Unknown 2017-05 Cherrise etal assistance letal 0-12 Jackhorn required 12:45: [id number] 00 Endo/Sen glucose Endo/Sen Resolve 2017-052018-03-22 Cherrise tolerance d 0-22 15:29:00 Jackhorn problem 13:50: [id number] 00 Elimination urinary Eliminatio Resolve 2017-052018-03-15 Cherrise incontinenc n d 0-22 15:24:00 Olya e 13:50: [id number] 00 Elimination urinary Eliminatio Resolve 2017-052018-03-15 Cherrise urgency n d 0-22 15:24:00 Olya 13:50: [id number] 00 Elimination urinary Eliminatio Resolve 2017-052018-03-15 Cherrise frequency n d 0-22 15:24:00 Jackhorn 13:50: [id number] 00 Endo/Sen glucose Endo/Sen Resolve 2017-052018-03-22 Cherrise testing d 0-29 15:29:00 Olya dependence 13:30: [id number] 00 Nutrition knowledge/s Nutrition Resolve 2017-052018-03-25 Cherrise kill d 1-05 14:35:00 Olya deficit: pt 11:30: [id number] 00 Elimination urinary Eliminatio Resolve 2017-052018-03-22 Cherrise frequency n d 1-05 15:29:00 Olya 11:30: [id number] 00 Pain frequent Pain Mgmt Resolve 2017-052018-06-14 Stephany pain d 05-25 14:43:00 Barber-Zos 14:35: h [id number] 00 Nutrition nutritional Nutrition Resolve 2017-052018-03-25 Stephany restriction d 05-25 14:35:00 Tyler-Zos s 14:35: h [id number] 00 Elimination urinary Eliminatio Resolve 2017-052018-04-05 Stephany incontinenc n d 05-25 14:45:00 Barber-Zos e 14:35: h [id number] 00 Elimination urinary Eliminatio Resolve 2017-052018-04-05 Stephany frequency n d 05-25 14:45:00 Tyler-Zos 14:35: h [id number] 00 Musculoskel requires Musculoske Unknown 2017-05 Stephany etal special letal 05-25 Barber-Zos transportat 14:35: h [id number] ion 00 Cardio hypertensio Cardiovasc Resolve 2017-052018-04-12 Cherrise n ular d 05-27 13:46:00 Jackhorn 12:00: [id number] 00 Endo/Sen glucose Endo/Sen Resolve 2017-052018-04-05 Cherrise tolerance d 05-27 14:45:00 Olya problem 12:00: [id number] 00 Elimination urinary Eliminatio Resolve 2017-052018-04-05 Cherrise urgency n d 06-01 14:45:00 Jackhorn 12:45: [id number] 00 Elimination urinary Eliminatio Resolve 2017-052018-04-12 Cherrise urgency n d 06-08 13:46:00 Olya 10:55: [id number] 00 Elimination urinary Eliminatio Resolve 2017-052018-04-12 Cherrise frequency n d 06-08 13:46:00 Jackhorn 10:55: [id number] 00 Endo/Sen glucose Endo/Sen Resolve 2017-052018-04-24 Cherrise tolerance d 06-16 15:19:00 Jackhorn problem 12:20: [id number] 00 Elimination urinary Eliminatio Resolve 2017-052018-04-24 Cherrise frequency n d 06-16 15:19:00 Jackhorn 12:20: [id number] 00 Cardio hypertensio Cardiovasc Resolve 2017-052018-04-24 Cherrise n ular d 2- 15:19:00 Jackhorn 10:35: [id number] 00 Elimination urinary Eliminatio Resolve 2017-052018-04-24 Cherrise urgency n d 2 15:19:00 Olya 10:35: [id number] 00 Elimination urinary Eliminatio Resolve 2017-052018-04-24 Stephany incontinenc n d 06-25 15:19:00 Barber-Zos e 15:19: h [id number] 00 Cardio hypertensio Cardiovasc Resolve 2017-052018-06-07 Cherrise n ular d 2-14 13:31:00 Jackhorn 13:15: [id number] 00 Respiratory dyspnea Respirator Active 2017-05 Cherrise present y 06-27 Jackhorn 13:15: [id number] 00 Respiratory CPAP Respirator Active 2017-05 Cherrise treatments y 06-27 Olya in home 13:15: [id number] 00 Respiratory smoker Respirator Resolve 2017-052018-06-03 Cherrise y d 2-14 14:08:00 Jackhorn 13:15: [id number] 00 Elimination urinary Eliminatio Resolve 2017-052018-05-31 Cherrise urgency n d 2-14 14:21:00 Olya 13:15: [id number] 00 Elimination urinary Eliminatio Resolve 2017-052018-05-31 Cherrise frequency n d 2-14 14:21:00 Olya 13:15: [id number] 00 Elimination diarrhea Eliminatio Resolve 2017-052018-05-31 Cherrise n d 2-14 14:21:00 Jackhorn 13:15: [id number] 00 Endo/Sen glucose Endo/Sen Resolve 2017-052018-05-31 Cherrise tolerance d 2-24 14:21:00 Jackhorn problem 13:10: [id number] 00 Infection s/s of Infection Active Stephany infection 05-31 Barber-Zos 14:21: h [id number] 00 Respiratory smoker Respirator Resolve 2018-09-13 Cherrise y d 06-05 13:20:00 Olya 13:35: [id number] 00 Endo/Sen glucose Endo/Sen Resolve 2018-06-21 Cherrise tolerance d 06-05 10:26:00 Jackhorn problem 13:35: [id number] 00 Elimination urinary Eliminatio Resolve 2018-06-14 Cherrise urgency n d 06-05 14:43:00 Jackhorn 13:35: [id number] 00 Elimination urinary Eliminatio Resolve 2018-06-14 Cherrise frequency n d 06-05 14:43:00 Jackhorn 13:35: [id number] 00 Cardio hypertensio Cardiovasc Resolve 2018-09-13 Cherrise n ular d 06-10 13:20:00 Olya 11:00: [id number] 00 Elimination urinary Eliminatio Resolve 2018-06-21 Cherrise urgency n d 06-19 10:26:00 Jackhorn 10:50: [id number] 00 Elimination urinary Eliminatio Resolve 2018-06-21 Stephany frequency n d 06-21 10:26:00 Tyler-Zos 10:26: h [id number] 00 Endo/Sen glucose Endo/Sen Resolve 2018-06-28 Cherrise tolerance d 2- 14:32:00 Jackhorn problem 11:25: [id number] 00 Elimination urinary Eliminatio Resolve 2018-06-28 Cherrise urgency n d 2- 14:32:00 Olya 11:25: [id number] 00 Elimination urinary Eliminatio Resolve 2018-06-28 Cherrise frequency n d 2- 14:32:00 Jackhorn 11:50: [id number] 00 Endo/Sen glucose Endo/Sen Resolve 2018-07-12 Cherrise tolerance d 07-03 13:43:00 Jackhorn problem 11:50: [id number] 00 Elimination urinary Eliminatio Resolve 2018-07-12 Cherrise urgency n d 07-08 13:43:00 Jackhorn 12:30: [id number] 00 Neuro depressive Neuro/Emot Resolve 2018-11-11 Cherrise feelings ion d 2 14:00:00 Olya present 12:30: [id number] 00 Elimination urinary Eliminatio Resolve 2018-07-12 Cherrise frequency n d 2-27 13:43:00 Olya 10:45: [id number] 00 Elimination urinary Eliminatio Resolve 2018-07-24 Stephany frequency n d 3-06 12:48:00 Barber-Zos 11:53: h [id number] 00 Endo/Sen glucose Endo/Sen Resolve 2018-09-18 Cherrise tolerance d 3-11 10:59:00 Olya problem 10:15: [id number] 00 Elimination urinary Eliminatio Resolve 2018-07-24 Cherrise urgency n d 3-11 12:48:00 Olya 10:15: [id number] 00 Pain frequent Pain Mgmt Resolve 2018-07-24 Stephany pain d 3-13 12:48:00 Barber-Zos 12:48: h [id number] 00 Elimination urinary Eliminatio Resolve 2018-09-13 Cherrise urgency n d 3-15 13:20:00 Olya 12:40: [id number] 00 Musculoskel requires Musculoske Unknown Cherrise etal human letal 3-15 Olya assist to 12:40: [id number] leave home 00 Respiratory lung sounds Respirator Resolve 2018-09-13 Christel deficit y d - 13:20:00 Jeb 15:19: [id number] 00 Safety fire risk Safety Resolve 2018-10-25 Christel present d 3 15:10:00 Jeb 15:19: [id number] 00 Elimination urinary Eliminatio Resolve 2018-09-13 Cherrise frequency n d 4-08 13:20:00 Jackhorn 12:50: [id number] 00 Integument surgical Integument Active Cherrise wound 4-24 Olya present 11:45: [id number] 00 Integument skin Integument Active Cherrise integrity 4-24 Olya risk 11:45: [id number] 00 Integument other wound Integument Active Cherrise present 4- Jackhorn 11:45: [id number] 00 Nutrition knowledge/s Nutrition Active Cherrise kill 09-04 Jackhorn deficit: pt 11:45: [id number] 00 Nutrition nutritional Nutrition Active Cherrise restriction 09-04 Olya s 11:45: [id number] 00 Musculoskel transfer Musculoske Resolve 2018-10-25 Cherrise etal assistance letal d 09-04 15:10:00 Olya required 11:45: [id number] 00 Musculoskel requires Musculoske Resolve 2018-10-25 Cherrise etal human letal d 09-04 15:10:00 Olya assist to 11:45: [id number] leave home 00 Elimination constipatio Eliminatio Resolve 2018-09-13 Cherrise n n d 09-09 13:20:00 Jackhorn 14:10: [id number] 00 Pain frequent Pain Mgmt Resolve 2018-10-25 Madelaine pain d 08 15:10:00 [facility] 10:59: [id number] 00 Respiratory smoker Respirator Resolve 2018-10-25 Cherrise y d - 15:10:00 Jackhorn 11:50: [id number] 00 Elimination urinary Eliminatio Resolve 2018-10-25 Cherrise urgency n d - 15:10:00 Olya 11:50: [id number] 00 Cardio hypertensio Cardiovasc Resolve 2018-11-11 Cherrise n ular d 10-09 14:00:00 Olya 11:20: [id number] 00 Endo/Sen glucose Endo/Sen Resolve 2018-10-25 Cherrise tolerance d 10-09 15:10:00 Jackhorn problem 11:20: [id number] 00 Elimination urinary Eliminatio Resolve 2018-10-25 Conchita frequency n d 10-16 15:10:00 Shimon, 14:00: [id number] 00 Cardio edema Cardiovasc Resolve 2018-11-11 Cherrise ular d 6- 14:00:00 Olya 11:00: [id number] 00 Safety risk for Safety Resolve 2018-11-01 Conchita hospitaliza d 6-17 14:00:00 daniel Robins 14:30: [id number] 00 Respiratory smoker Respirator Resolve 2018-11-11 Cherrise y d 6-19 14:00:00 Olya 10:25: [id number] 00 Endo/Sen glucose Endo/Sen Resolve 2018-11-11 Cherrise tolerance d 6-19 14:00:00 Olya problem 10:25: [id number] 00 Elimination urinary Eliminatio Resolve 2018-11-11 Cherrise urgency n d 6-19 14:00:00 Olya 10:25: [id number] 00 Elimination urinary Eliminatio Resolve 2018-11-11 Cherrise frequency n d 6-19 14:00:00 Olya 10:25: [id number] 00 Musculoskel requires Musculoske Resolve 2018-12-23 Cherrise etal human letal d 6- 11:00:00 Olya assist to 10:25: [id number] leave home 00 Musculoskel requires Musculoske Resolve 2018-12-23 Kerry etal special letal d 6- 11:00:00 Maria Antonia transportat 18:30: [id number] ion 00 Safety fall risk Safety Resolve 2018-12-13 Cherrise factor d 7- 14:40:00 Jackhorn present 14:45: [id number] 00 Neuro impaired Neuro/Emot Resolve 2018-12-13 Madelaine mullen ion d 7- 14:40:00 Jose Angel pettit 14:00: [id number] 00 Safety risk for Safety Resolve 2018-12-13 Madelaine garciaiza d 7-10 14:40:00 Ingrahm tion 14:00: [id number] 00 Cardio edema Cardiovasc Resolve 2018-12-23 Cherrise ular d 7-15 11:00:00 Olya 11:00: [id number] 00 Respiratory smoker Respirator Resolve 2018-12-23 Cherrise y d 7-15 11:00:00 Jackhorn 11:00: [id number] 00 Endo/Sen glucose Endo/Sen Resolve 2019-01-01 Cherrise tolerance d 7-15 15:00:00 Jackhorn problem 11:00: [id number] 00 Elimination urinary Eliminatio Resolve 2018-12-13 Cherrise urgency n d 7-15 14:40:00 Olya 11:00: [id number] 00 Safety sanitation Safety Resolve 2018-12-13 Cherrise hazards d 7-15 14:40:00 Olya present 11:00: [id number] 00 Elimination urinary Eliminatio Resolve 2018-12-13 Cherrise frequency n d 7 14:40:00 Jackhorn 11:15: [id number] 00 Neuro depressive Neuro/Emot Resolve 2019-01-17 Cherrise feelings ion d 12-02 15:25:00 Olya present 11:15: [id number] 00 Cardio hypertensio Cardiovasc Resolve 2018-12-23 Cherrise n ular d 12-04 11:00:00 Jackhorn 14:40: [id number] 00 Musculoskel knowledge/s Musculoske Resolve 2018-12-23 Cherrise etal kill letal d 12-16 11:00:00 Olya deficit: cg 14:15: [id number] 00 Elimination urinary Eliminatio Resolve 2018-12-23 Cherrise urgency n d 12-20 11:00:00 Olya 10:10: [id number] 00 Neuro depressive Neuro/Emot Unknown Cherrise feelings ion 12-20 Jackhorn present 10:10: [id number] 00 Neuro impaired Neuro/Emot Resolve 2019-01-17 Cherrise decision-ma ion d 12-20 15:25:00 Olya wilver 10:10: [id number] 00 Safety risk for Safety Resolve 2018-12-23 Cherrise hospitaliza d 12-20 11:00:00 Jackhorn tion 10:10: [id number] 00 Sensory impaired Sensory Resolve 2019-01-17 Madelaine verbal d 12-23 15:25:00 Ingrahm communicati 11:00: [id number] 00 Cardio hypertensio Cardiovasc Resolve 2019-01-01 Cherrise n ular d 8-14 15:00:00 Jackhorn 12:00: [id number] 00 Respiratory smoker Respirator Resolve 2019-01-01 Cherrise y d 8-14 15:00:00 Olya 12:00: [id number] 00 Elimination urinary Eliminatio Resolve 2019-01-01 Cherrise urgency n d 8-14 15:00:00 Olya 12:00: [id number] 00 Neuro anxiety Neuro/Emot Resolve 2019-01-17 Cherrise present ion d 8 15:25:00 Jackhorn 12:00: [id number] 00 Safety risk for Safety Resolve 2019-01-01 Cherrise hospitaliza d 8 15:00:00 Jackhorn tion 12:00: [id number] 00 Musculoskel requires Musculoske Unknown Cherrise etal human letal 12-25 Jackhorn assist to 12:00: [id number] leave home 00 Respiratory smoker Respirator Resolve 2019-01-17 Cherrise y d 01-03 15:25:00 Olya 11:45: [id number] 00 Elimination urinary Eliminatio Resolve 2019-01-17 Cherrise urgency n d 01-03 15:25:00 Olya 11:45: [id number] 00 Safety fall risk Safety Resolve 2019-01-06 Cherrise factor d 01-03 12:25:00 Olya present 11:45: [id number] 00 Safety risk for Safety Resolve 2019-02-12 Cherrise hospitaliza d 01-03 15:15:00 Jackhorn tion 11:45: [id number] 00 Neuro memory Neuro/Emot Active Cherrise deficit ion 01-13 Jackhorn needing 11:20: [id number] supervision 00 Elimination urinary Eliminatio Resolve 2019-01-17 Madelaine incontinenc n d 01-17 15:25:00 Ingrahm e 15:25: [id number] 00 Safety fall risk Safety Resolve 2019-01-17 Desiree factor d 01-17 15:25:00 Rashid present 15:25: [id number] 00 Cardio hypertensio Cardiovasc Resolve 2019-01-24 Narciso aguilar ular d 01-20 09:00:00 Jackhorn 11:15: [id number] 00 Safety sanitation Safety Resolve 2019-02-12 Cherrise hazards d 01-20 15:15:00 Jackhorn present 11:15: [id number] 00 Respiratory smoker Respirator Resolve 2019-01-24 Madelaine y d 01-24 09:00:00 Ingrahm 09:00: [id number] 00 Musculoskel transfer Musculoske Active Cherrise etal assistance letal 01-29 Olya required 13:25: [id number] 00 Musculoskel requires Musculoske Active Cherrise etal human letal 01-29 Jackhorn assist to 13:25: [id number] leave home 00 Musculoskel requires Musculoske Active Cherrise etal special letal 01-29 Jackhorn transportat 13:25: [id number] ion 00 Respiratory smoker Respirator Resolve 2019-02-05 Cherrise y d 02-03 15:10:00 Jackhorn 10:00: [id number] 00 Elimination urinary Eliminatio Resolve 2019-02-12 Cherrise urgency n d 02-03 15:15:00 Jackhorn 10:00: [id number] 00 Safety fall risk Safety Resolve 2019-02-12 Cherrise factor d 9 15:15:00 Olya present 11:15: [id number] 00 Cardio hypertensio Cardiovasc Resolve 2018-052019-02-19 Narciso hernandez d 0-04 14:00:00 Jackhorn 11:50: [id number] 00 Respiratory smoker Respirator Resolve 2018-052019-02-19 Narciso y d 0-07 14:00:00 Jackhorn 11:30: [id number] 00 Safety risk for Safety Resolve 2018-052019-03-12 Madelaine navarrete d 0-09 15:00:00 Ingrahm tion 14:00: [id number] 00 Cardio hypertensio Cardiovasc Resolve 2018-052019-03-19 Cherrise n ular d 0-18 14:00:00 Jackhorn 12:30: [id number] 00 Respiratory smoker Respirator Resolve 2018-052019-03-12 Cherrise y d 018 15:00:00 Jackhorn 12:30: [id number] 00 Elimination urinary Eliminatio Resolve 2018-052019-03-12 Cherrise urgency n d 0-18 15:00:00 Olya 12:30: [id number] 00 Respiratory smoker Respirator Resolve 2018-052019-03-19 Cherrise y d 04 14:00:00 Olya 09:40: [id number] 00 Elimination urinary Eliminatio Resolve 2018-052019-03-19 Cherrise urgency n d 05-17 14:00:00 Olya 09:40: [id number] 00 Safety risk for Safety Active 2018-05 Cherrise hospitaliza 05-17 Jackhorn tion 09:40: [id number] 00 Safety fall risk Safety Active 2018-05 Madelaine factor 05-19 Ingrahm present 14:00: [id number] 00 Respiratory smoker Respirator Active 2018-05 Cherrise y 05-28 Jackhorn 10:55: [id number] 00 Elimination urinary Eliminatio Active 2018-05 Cherrise incontinenc n 05-28 Jackhorn e 10:55: [id number] 00 Elimination urinary Eliminatio Active 2018-05 Cherrise urgency n 05-28 Jackhorn 10:55: [id number] 00 Neuro depressive Neuro/Emot Active 2018-05 Cherrise feelings ion 05-28 Jackhorn present 10:55: [id number] 00 Neuro impaired Neuro/Emot Active 2018-05 Cherrise decision-ma ion 05-28 Jackhorn wilver 10:55: [id number] 00 Safety sanitation Safety Active 2018-05 Cherrise hazards 05-28 Jackhorn present 10:55: [id number] 00 Cardio hypertensio Cardiovasc Active 2018-05 Cherrise n ular 06-07 Jackhorn 11:30: [id number] 00 Allergies, Adverse Reactions, Alerts Allergy Allergy [...] n 20 mg n 20 mg 01-26 MD,Rogers tablet tablet furosemide furosemide 2017- No Pachikara [...] Unknown [facility] l[facility] Rafita Unknown Unknown 30 mg 30 [facility] hydroCHLORO hydroCHLORO No [...] Observation Time Observation Value Comments SYSTOLIC mm[Hg] 2019-04-07 18:09:02 121 mm[Hg] mm[Hg] Method: Sit SYSTOLIC mm[Hg] 1840-05-13 00:00:00 127 mm[Hg] mm[Hg] Method: Lie DIASTOLIC mm[Hg] 2019-04-07 18:09:02 101 mm[Hg] mm[Hg] Method: Sit DIASTOLIC mm[Hg] 1840-05-13 00:00:00 83 mm[Hg] mm[Hg] Method: Lie PULSE 2019-04-07 18:09:02 99 /min /min RESP RATE 2019-04-07 18:09:02 18 /min /min TEMP 2019-04-07 18:09:02 97.5 [degF] Procedures This patient has no known procedures. Results This patient has no known results.
--- OUTSIDE RECORDS SUMMARY | 2019-05-09 12:29 | XMS REPORT ---
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-26 Ingrm infct infct [id number] causing causing diseases diseases classd classd elswhr elswhr Type 2 Type 2 Diagnosis Active Madelaine diabetes diabetes 05-14 [facility] mellitus mellitus [id number] with with diabetic diabetic neuropathy, neuropathy, unsp unsp Essential Essential Diagnosis Active Madelaine (primary) (primary) 05-14 [facility] hypertensio hypertensio [id number] n n Chronic Chronic Diagnosis Active Madelaine obstructive obstructive 05-14 [facility] pulmonary pulmonary [id number] disease, disease, unspecified unspecified G47.33 G47.33 Diagnosis Active Madelaine 05-14 [facility] [id number] Pain frequent Pain Mgmt Resolve 2018-06-14 Darya pain d 01-26 14:43:00 (Tejas) 09:45: Analilia 00 [id number] Cardio edema Cardiovasc Resolve 2018-02-18 Darya ular d 01-26 13:35:00 (Tejas) 09:45: Analilia 00 [id number] Cardio knowledge/s Cardiovasc Resolve 2018-02-18 Darya kill ular d 01-26 13:35:00 (Tejas) deficit: pt 09:45: Analilia 00 [id number] Respiratory dyspnea Respirator Resolve 2018-04-24 Darya present y d 01-26 15:19:00 (Tejas) 09:45: Analilia 00 [id number] Respiratory CPAP Respirator Resolve 2018-04-24 Quality treatments y d 9-15 15:19:00 Realtime7 in home 09:45: 00 Endo/Sen diabetic Endo/Sen Resolve 2018-02-25 Darya foot care d 9-15 14:00:00 (Tejas) 09:45: Billingsley [id number] Integument surgical Integument Resolve 2018-03-25 Darya wound d 9-15 14:35:00 (Tejas) present 09:45: Billingsley [id number] Integument skin Integument Resolve 2018-03-25 Darya integrity d 9-15 14:35:00 (Tejas) risk 09:45: Billingsley [id number] Integument other wound Integument Resolve 2018-03-25 Quality present d 9-15 14:35:00 Realtime7 09:45: 00 Nutrition nutritional Nutrition Resolve 2018-03-15 Darya restriction d 9-15 15:24:00 (Tejas) s 09:45: Billingsley [id number] Elimination urinary Eliminatio Resolve 2018-03-01 Darya incontinenc n d 9-15 09:00:00 (Tejas) e 09:45: Billingsley 00 [id number] Neuro confusion Neuro/Emot Resolve 2018-11-11 Darya present ion d 9-15 14:00:00 (Tejas) 09:45: Billingsley 00 [id number] Neuro anxiety Neuro/Emot Resolve 2018-11-11 Darya present ion d 9-15 14:00:00 (Tejas) 09:45: Billingsley [id number] Activity ADL Activity Resolve 2018-11-11 Darya assistance d 9-15 14:00:00 (Tejas) required 09:45: Billingsley [id number] Safety sanitation Safety Resolve 2018-10-25 Darya hazards d 9-15 15:10:00 (Teajs) present 09:45: Billingsley [id number] Safety fall risk Safety Resolve 2018-10-25 Darya factor d 9-15 15:10:00 (Tejas) present 09:45: Billingsley [id number] Safety risk for Safety Resolve 2018-10-25 Darya hospitaliza d 9-15 15:10:00 (Tejas) tion 09:45: Billingsley 00 [id number] Safety can be left Safety Resolve 2018-11-11 Darya alone for d 9-15 14:00:00 (Tejas) only short 09:45: Billingsley periods 00 [id number] Medication oral med Meds Resolve 2018-03-15 Darya assistance d 9-15 15:24:00 (Tejas) required 09:45: Billingsley [id number] Medication knowledge/s Meds Resolve 2018-03-15 Darya kill d 9-15 15:24:00 (Tejas) deficit: pt 09:45: Billingsley [id number] Medication potential Meds Resolve 2018-03-15 Darya clinically d 9-15 15:24:00 (Tejas) significant 09:45: Billingsley medication [id number] issue Musculoskel transfer Musculoske Unknown Quality etal assistance letal 01-26 Realtime7 required 09:45: 00 Sensory impaired Sensory Resolve 2018-11-11 Quality verbal d 917 14:00:00 Realtime7 communicati 14:00: on 24 Endo/Sen glucose Endo/Sen Resolve 2018-02-25 Cherrise tolerance d 01-31 14:00:00 Guion problem 13:25: [id number] 00 Nutrition knowledge/s Nutrition Resolve 2018-03-15 Cherrise kill d 01-31 15:24:00 Olya deficit: pt 13:25: [id number] 00 Elimination urinary Eliminatio Resolve 2018-03-01 Cherrise urgency n d 01-31 09:00:00 Guion 13:25: [id number] 00 Elimination urinary Eliminatio Resolve 2018-03-01 Cherrise frequency n d 01-31 09:00:00 Olya 13:25: [id number] 00 Neuro impaired Neuro/Emot Resolve 2018-11-11 Cherrise decision-ma ion d 01-31 14:00:00 Guion wilver 13:25: [id number] 00 Musculoskel requires Musculoske Unknown Cherrise etal human letal 9-20 Olya assist to 13:25: [id number] leave home 00 Cardio hypertensio Cardiovasc Resolve 2018-02-18 Cherrise n ular d 9-24 13:35:00 Olya 13:05: [id number] 00 Musculoskel requires Musculoske Unknown 2017-05 Cherrise etal human letal 0-05 Guion assist to 13:40: [id number] leave home 00 Cardio hypertensio Cardiovasc Resolve 2017-052018-03-25 Cherrise n ular d 0-12 14:35:00 Guion 12:45: [id number] 00 Respiratory smoker Respirator Resolve 2017-052018-04-24 Cherrise y d 0-12 15:19:00 Guion 12:45: [id number] 00 Musculoskel transfer Musculoske Unknown 2017-05 Cherrise etal assistance letal 0-12 Olya required 12:45: [id number] 00 Endo/Sen glucose Endo/Sen Resolve 2017-052018-03-22 Cherrise tolerance d 0-22 15:29:00 Olya problem 13:50: [id number] 00 Elimination urinary Eliminatio Resolve 2017-052018-03-15 Cherrise incontinenc n d 0-22 15:24:00 Olya e 13:50: [id number] 00 Elimination urinary Eliminatio Resolve 2017-052018-03-15 Cherrise urgency n d 0-22 15:24:00 Olya 13:50: [id number] 00 Elimination urinary Eliminatio Resolve 2017-052018-03-15 Cherrise frequency n d 0-22 15:24:00 Guion 13:50: [id number] 00 Endo/Sen glucose Endo/Sen Resolve 2017-052018-03-22 Cherrise testing d 0-29 15:29:00 Olya dependence 13:30: [id number] 00 Nutrition knowledge/s Nutrition Resolve 2017-052018-03-25 Cherrise kill d 1-05 14:35:00 Olya deficit: pt 11:30: [id number] 00 Elimination urinary Eliminatio Resolve 2017-052018-03-22 Cherrise frequency n d 1-05 15:29:00 Olya 11:30: [id number] 00 Pain frequent Pain Mgmt Resolve 2017-052018-06-14 Stephany pain d 05-25 14:43:00 Souris-Zos 14:35: h [id number] 00 Nutrition nutritional Nutrition Resolve 2017-052018-03-25 Stephany restriction d 05-25 14:35:00 Souris-Zos s 14:35: h [id number] 00 Elimination urinary Eliminatio Resolve 2017-052018-04-05 Stephany incontinenc n d 05-25 14:45:00 Souris-Zos e 14:35: h [id number] 00 Elimination urinary Eliminatio Resolve 2017-052018-04-05 Stephany frequency n d 05-25 14:45:00 Souris-Zos 14:35: h [id number] 00 Musculoskel requires Musculoske Unknown 2017-05 Stephany etal special letal 05-25 Barber-Zos transportat 14:35: h [id number] ion 00 Cardio hypertensio Cardiovasc Resolve 2017-052018-04-12 Cherrise n ular d 05-27 13:46:00 Olya 12:00: [id number] 00 Endo/Sen glucose Endo/Sen Resolve 2017-052018-04-05 Cherrise tolerance d 05-27 14:45:00 Guion problem 12:00: [id number] 00 Elimination urinary Eliminatio Resolve 2017-052018-04-05 Cherrise urgency n d 06-01 14:45:00 Guion 12:45: [id number] 00 Elimination urinary Eliminatio Resolve 2017-052018-04-12 Cherrise urgency n d 06-08 13:46:00 Guion 10:55: [id number] 00 Elimination urinary Eliminatio Resolve 2017-052018-04-12 Cherrise frequency n d 06-08 13:46:00 Olya 10:55: [id number] 00 Endo/Sen glucose Endo/Sen Resolve 2017-052018-04-24 Cherrise tolerance d 06-16 15:19:00 Guion problem 12:20: [id number] 00 Elimination urinary Eliminatio Resolve 2017-052018-04-24 Cherrise frequency n d 06-16 15:19:00 Olya 12:20: [id number] 00 Cardio hypertensio Cardiovasc Resolve 2017-052018-04-24 Cherrise n ular d 2- 15:19:00 Olya 10:35: [id number] 00 Elimination urinary Eliminatio Resolve 2017-052018-04-24 Cherrise urgency n d 2 15:19:00 Guion 10:35: [id number] 00 Elimination urinary Eliminatio Resolve 2017-052018-04-24 Stephany incontinenc n d 06-25 15:19:00 Souris-Zos e 15:19: h [id number] 00 Cardio hypertensio Cardiovasc Resolve 2017-052018-06-07 Cherrise n ular d 2-14 13:31:00 Guion 13:15: [id number] 00 Respiratory dyspnea Respirator Active 2017-05 Cherrise present y 06-27 Guion 13:15: [id number] 00 Respiratory CPAP Respirator Active 2017-05 Cherrise treatments y 06-27 Guion in home 13:15: [id number] 00 Respiratory smoker Respirator Resolve 2017-052018-06-03 Cherrise y d 2-14 14:08:00 Guion 13:15: [id number] 00 Elimination urinary Eliminatio Resolve 2017-052018-05-31 Cherrise urgency n d 2-14 14:21:00 Guion 13:15: [id number] 00 Elimination urinary Eliminatio Resolve 2017-052018-05-31 Cherrise frequency n d 2-14 14:21:00 Olya 13:15: [id number] 00 Elimination diarrhea Eliminatio Resolve 2017-052018-05-31 Cherrise n d 2-14 14:21:00 Olya 13:15: [id number] 00 Endo/Sen glucose Endo/Sen Resolve 2017-052018-05-31 Cherrise tolerance d 2-24 14:21:00 Guion problem 13:10: [id number] 00 Infection s/s of Infection Active Stephany infection 05-31 Souris-Zos 14:21: h [id number] 00 Respiratory smoker Respirator Resolve 2018-09-13 Cherrise y d 06-05 13:20:00 Olya 13:35: [id number] 00 Endo/Sen glucose Endo/Sen Resolve 2018-06-21 Cherrise tolerance d 06-05 10:26:00 Olya problem 13:35: [id number] 00 Elimination urinary Eliminatio Resolve 2018-06-14 Cherrise urgency n d 06-05 14:43:00 Olya 13:35: [id number] 00 Elimination urinary Eliminatio Resolve 2018-06-14 Cherrise frequency n d 06-05 14:43:00 Olya 13:35: [id number] 00 Cardio hypertensio Cardiovasc Resolve 2018-09-13 Cherrise n ular d 06-10 13:20:00 Guion 11:00: [id number] 00 Elimination urinary Eliminatio Resolve 2018-06-21 Cherrise urgency n d 06-19 10:26:00 Guion 10:50: [id number] 00 Elimination urinary Eliminatio Resolve 2018-06-21 Stephany frequency n d 06-21 10:26:00 Barber-Zos 10:26: h [id number] 00 Endo/Sen glucose Endo/Sen Resolve 2018-06-28 Cherrise tolerance d 2- 14:32:00 Olya problem 11:25: [id number] 00 Elimination urinary Eliminatio Resolve 2018-06-28 Cherrise urgency n d 2- 14:32:00 Guion 11:25: [id number] 00 Elimination urinary Eliminatio Resolve 2018-06-28 Cherrise frequency n d 2- 14:32:00 Olya 11:50: [id number] 00 Endo/Sen glucose Endo/Sen Resolve 2018-07-12 Cherrise tolerance d 07-03 13:43:00 Guion problem 11:50: [id number] 00 Elimination urinary Eliminatio Resolve 2018-07-12 Cherrise urgency n d 07-08 13:43:00 Olya 12:30: [id number] 00 Neuro depressive Neuro/Emot Resolve 2018-11-11 Cherrise feelings ion d 2 14:00:00 Guion present 12:30: [id number] 00 Elimination urinary Eliminatio Resolve 2018-07-12 Cherrise frequency n d 2-27 13:43:00 Guion 10:45: [id number] 00 Elimination urinary Eliminatio Resolve 2018-07-24 Stephany frequency n d 3-06 12:48:00 Barber-Zos 11:53: h [id number] 00 Endo/Sen glucose Endo/Sen Resolve 2018-09-18 Cherrise tolerance d 3-11 10:59:00 Olya problem 10:15: [id number] 00 Elimination urinary Eliminatio Resolve 2018-07-24 Cherrise urgency n d 3-11 12:48:00 Olya 10:15: [id number] 00 Pain frequent Pain Mgmt Resolve 2018-07-24 Stephany pain d 3-13 12:48:00 Barber-Zos 12:48: h [id number] 00 Elimination urinary Eliminatio Resolve 2018-09-13 Cherrise urgency n d 3-15 13:20:00 Guion 12:40: [id number] 00 Musculoskel requires Musculoske Unknown Cherrise etal human letal 3-15 Guion assist to 12:40: [id number] leave home 00 Respiratory lung sounds Respirator Resolve 2018-09-13 Christel deficit y d - 13:20:00 Jeb 15:19: [id number] 00 Safety fire risk Safety Resolve 2018-10-25 Christel present d 3 15:10:00 Jeb 15:19: [id number] 00 Elimination urinary Eliminatio Resolve 2018-09-13 Cherrise frequency n d 4-08 13:20:00 Guion 12:50: [id number] 00 Integument surgical Integument Active Cherrise wound 4-24 Olya present 11:45: [id number] 00 Integument skin Integument Active Cherrise integrity 4-24 Olya risk 11:45: [id number] 00 Integument other wound Integument Active Cherrise present 4- Olya 11:45: [id number] 00 Nutrition knowledge/s Nutrition Active Cherrise kill 09-04 Guion deficit: pt 11:45: [id number] 00 Nutrition nutritional Nutrition Active Cherrise restriction 09-04 Olya s 11:45: [id number] 00 Musculoskel transfer Musculoske Resolve 2018-10-25 Cherrise etal assistance letal d 09-04 15:10:00 Guion required 11:45: [id number] 00 Musculoskel requires Musculoske Resolve 2018-10-25 Cherrise etal human letal d 09-04 15:10:00 Guion assist to 11:45: [id number] leave home 00 Elimination constipatio Eliminatio Resolve 2018-09-13 Cherrise n n d 09-09 13:20:00 Olya 14:10: [id number] 00 Pain frequent Pain Mgmt Resolve 2018-10-25 Madelaine pain d 08 [facility]:10[facility] 10[facility] [id number] 00 Respiratory smoker Respirator Resolve 2018-10-25 Cherrise y d - 15:10:00 Olya 11:50: [id number] 00 Elimination urinary Eliminatio Resolve 2018-10-25 Cherrise urgency n d - 15:10:00 Olya 11:50: [id number] 00 Cardio hypertensio Cardiovasc Resolve 2018-11-11 Cherrise n ular d 10-09 14:00:00 Guion 11:20: [id number] 00 Endo/Sen glucose Endo/Sen Resolve 2018-10-25 Cherrise tolerance d 10-09 15:10:00 Olya problem 11:20: [id number] 00 Elimination urinary Eliminatio Resolve 2018-10-25 Conchita frequency n d 10-16 15:10:00 Shimon, 14:00: [id number] 00 Cardio edema Cardiovasc Resolve 2018-11-11 Cherrise ular d 6- 14:00:00 Guion 11:00: [id number] 00 Safety risk for Safety Resolve 2018-11-01 Conchita hospitaliza d 6-17 14:00:00 daniel Robins 14:30: [id number] 00 Respiratory smoker Respirator Resolve 2018-11-11 Cherrise y d 6-19 14:00:00 Olya 10:25: [id number] 00 Endo/Sen glucose Endo/Sen Resolve 2018-11-11 Cherrise tolerance d 6-19 14:00:00 Guion problem 10:25: [id number] 00 Elimination urinary Eliminatio Resolve 2018-11-11 Cherrise urgency n d 6-19 14:00:00 Olya 10:25: [id number] 00 Elimination urinary Eliminatio Resolve 2018-11-11 Cherrise frequency n d 6-19 14:00:00 Olya 10:25: [id number] 00 Musculoskel requires Musculoske Resolve 2018-12-23 Cherrise etal human letal d 6- 11:00:00 Olya assist to 10:25: [id number] leave home 00 Musculoskel requires Musculoske Resolve 2018-12-23 Kerry etal special letal d 6- 11:00:00 Maria Antonia transportat 18:30: [id number] ion 00 Safety fall risk Safety Resolve 2018-12-13 Cherrise factor d 7- 14:40:00 Olya present 14:45: [id number] 00 Neuro impaired Neuro/Emot Resolve 2018-12-13 Madelaine mullen ion d 7- 14:40:00 Jose Angel pettit 14:00: [id number] 00 Safety risk for Safety Resolve 2018-12-13 Madelaine garciaiza d 7-10 14:40:00 Ingrahm tion 14:00: [id number] 00 Cardio edema Cardiovasc Resolve 2018-12-23 Cherrise ular d 7-15 11:00:00 Olya 11:00: [id number] 00 Respiratory smoker Respirator Resolve 2018-12-23 Cherrise y d 7-15 11:00:00 Olya 11:00: [id number] 00 Endo/Sen glucose Endo/Sen Resolve 2019-01-01 Cherrise tolerance d 7-15 15:00:00 Olya problem 11:00: [id number] 00 Elimination urinary Eliminatio Resolve 2018-12-13 Cherrise urgency n d 7-15 14:40:00 Guion 11:00: [id number] 00 Safety sanitation Safety Resolve 2018-12-13 Cherrise hazards d 7-15 14:40:00 Guion present 11:00: [id number] 00 Elimination urinary Eliminatio Resolve 2018-12-13 Cherrise frequency n d 7 14:40:00 Olya 11:15: [id number] 00 Neuro depressive Neuro/Emot Resolve 2019-01-17 Cherrise feelings ion d 12-02 15:25:00 Olya present 11:15: [id number] 00 Cardio hypertensio Cardiovasc Resolve 2018-12-23 Cherrise n ular d 12-04 11:00:00 Guion 14:40: [id number] 00 Musculoskel knowledge/s Musculoske Resolve 2018-12-23 Cherrise etal kill letal d 12-16 11:00:00 Olya deficit: cg 14:15: [id number] 00 Elimination urinary Eliminatio Resolve 2018-12-23 Cherrise urgency n d 12-20 11:00:00 Guion 10:10: [id number] 00 Neuro depressive Neuro/Emot Unknown Cherrise feelings ion 12-20 Olya present 10:10: [id number] 00 Neuro impaired Neuro/Emot Resolve 2019-01-17 Cherrise decision-ma ion d 12-20 15:25:00 Guion wilver 10:10: [id number] 00 Safety risk for Safety Resolve 2018-12-23 Cherrise hospitaliza d 12-20 11:00:00 Olya tion 10:10: [id number] 00 Sensory impaired Sensory Resolve 2019-01-17 Madelaine verbal d 12-23 15:25:00 Ingrahm communicati 11:00: [id number] on 00 Cardio hypertensio Cardiovasc Resolve 2019-01-01 Cherrise n ular d 8-14 15:00:00 Olya 12:00: [id number] 00 Respiratory smoker Respirator Resolve 2019-01-01 Cherrise y d 8-14 15:00:00 Guion 12:00: [id number] 00 Elimination urinary Eliminatio Resolve 2019-01-01 Cherrise urgency n d 8-14 15:00:00 Olya 12:00: [id number] 00 Neuro anxiety Neuro/Emot Resolve 2019-01-17 Cherrise present ion d 8-14 15:25:00 Olya 12:00: [id number] 00 Safety risk for Safety Resolve 2019-01-01 Cherrise hospitaliza d 8-14 15:00:00 Guion tion 12:00: [id number] 00 Musculoskel requires Musculoske Unknown Cherrise etal human letal 12-25 Guion assist to 12:00: [id number] leave home 00 Respiratory smoker Respirator Resolve 2019-01-17 Cherrise y d 01-03 15:25:00 Olya 11:45: [id number] 00 Elimination urinary Eliminatio Resolve 2019-01-17 Cherrise urgency n d 01-03 15:25:00 Olya 11:45: [id number] 00 Safety fall risk Safety Resolve 2019-01-06 Cherrise factor d 8 12:25:00 Guion present 11:45: [id number] 00 Safety risk for Safety Resolve 2019-02-12 Cherrise hospitaliza d 01-03 15:15:00 Olya tion 11:45: [id number] 00 Neuro memory Neuro/Emot Resolve 2019-03-31 Cherrise deficit ion d 01-13 15:30:00 Guion needing 11:20: [id number] supervision 00 Elimination urinary Eliminatio Resolve 2019-01-17 Madelaine incontinenc n d 01-17 15:25:00 Ingrahm e 15:25: [id number] 00 Safety fall risk Safety Resolve 2019-01-17 Desiree factor d 9-06 15:25:00 Rashid present 15:25: [id number] 00 Cardio hypertensio Cardiovasc Resolve 2019-01-24 Narciso aguilar ular d 01-20 09:00:00 Guion 11:15: [id number] 00 Safety sanitation Safety Resolve 2019-02-12 Cherrise hazards d 01-20 15:15:00 Guion present 11:15: [id number] 00 Respiratory smoker Respirator Resolve 2019-01-24 Madelaine y d 01-24 09:00:00 Ingrahm 09:00: [id number] 00 Musculoskel transfer Musculoske Active Cherrise etal assistance letal 01-29 Olya required 13:25: [id number] 00 Musculoskel requires Musculoske Active Cherrise etal human letal 01-29 Guion assist to 13:25: [id number] leave home 00 Musculoskel requires Musculoske Active Cherrise etal special letal 01-29 Guion transportat 13:25: [id number] ion 00 Respiratory smoker Respirator Resolve 2019-02-05 Cherrise y d 02-03 15:10:00 Guion 10:00: [id number] 00 Elimination urinary Eliminatio Resolve 2019-02-12 Cherrise urgency n d 02-03 15:15:00 Guion 10:00: [id number] 00 Safety fall risk Safety Resolve 2019-02-12 Cherrise factor d 02-07 15:15:00 Guion present 11:15: [id number] 00 Cardio hypertensio Cardiovasc Resolve 2018-052019-02-19 Narciso hernandez d 0-04 14:00:00 Olya 11:50: [id number] 00 Respiratory smoker Respirator Resolve 2018-052019-02-19 Gigie y d 0-07 14:00:00 Olya 11:30: [id number] 00 Safety risk for Safety Resolve 2018-052019-03-12 Madelaine landon d 009 15:00:00 Ingrahm tion 14:00: [id number] 00 Cardio hypertensio Cardiovasc Resolve 2018-052019-03-19 Cherrise n ular d 0-18 14:00:00 Guion 12:30: [id number] 00 Respiratory smoker Respirator Resolve 2018-052019-03-12 Cherrise y d 0-18 15:00:00 Olya 12:30: [id number] 00 Elimination urinary Eliminatio Resolve 2018-052019-03-12 Cherrise urgency n d 0-18 15:00:00 Olya 12:30: [id number] 00 Respiratory smoker Respirator Resolve 2018-052019-03-19 Cherrise y d 1-04 14:00:00 Olya 09:40: [id number] 00 Elimination urinary Eliminatio Resolve 2018-052019-03-19 Cherrise urgency n d 1-04 14:00:00 Guion 09:40: [id number] 00 Safety risk for Safety Resolve 2018-052019-03-31 Cherrise hospitaliza d 1-04 15:30:00 Guion tion 09:40: [id number] 00 Safety fall risk Safety Resolve 2018-052019-03-31 Madelaine factor d 1-06 15:30:00 Ingrahm present 14:00: [id number] 00 Elimination urinary Eliminatio Resolve 2018-052019-03-31 Madelaine incontinenc n d 1-13 15:30:00 Ingrahm e 15:30: [id number] 00 Respiratory smoker Respirator Resolve 2018-052019-03-31 Cherrise y d 1-15 15:30:00 Guion 10:55: [id number] 00 Elimination urinary Eliminatio Resolve 2018-052019-03-31 Cherrise urgency n d 1-15 15:30:00 Guion 10:55: [id number] 00 Neuro depressive Neuro/Emot Resolve 2018-052019-03-31 Cherrise feelings ion d 115 15:30:00 Guion present 10:55: [id number] 00 Neuro impaired Neuro/Emot Resolve 2018-052019-03-31 Cherrise decision-ma ion d 115 15:30:00 Olya wilver 10:55: [id number] 00 Safety sanitation Safety Resolve 2018-052019-03-31 Cherrise hazards d 1-15 15:30:00 Guion present 10:55: [id number] 00 Cardio hypertensio Cardiovasc Active 2018-05 Cherrise n ular 06-07 Guion 11:30: [id number] 00 Respiratory smoker Respirator Active 2018-05 Cherrise y 06-16 Guion 14:05: [id number] 00 Elimination urinary Eliminatio Active 2018-05 Cherrise incontinenc n 06-16 Guion e 14:05: [id number] 00 Elimination urinary Eliminatio Active 2018-05 Cherrise urgency n 06-16 Guion 14:05: [id number] 00 Neuro depressive Neuro/Emot Active 2018-05 Cherrise feelings ion 06-16 Guion present 14:05: [id number] 00 Neuro impaired Neuro/Emot Active 2018-05 Cherrise decision-ma ion 06-16 Olya wilver 14:05: [id number] 00 Allergies, Adverse Reactions, Alerts Allergy Allergy [...] Unknown Unknown 100 mg 100 mg 01-26 ,[place] tablet tablet metFORMIN metFORMIN No [place] Unknown Unknown 1,000 mg 1,000 mg 01-26 ,[place] tablet tablet Dulera 200 Dulera 200 2018- [...]
--- OUTSIDE RECORDS SUMMARY | 2019-05-09 12:29 | XMS REPORT ---
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-26 Ingrm infct infct [id number] causing causing diseases diseases classd classd elswhr elswhr Type 2 Type 2 Diagnosis Active Madelaine diabetes diabetes 05-14 [facility] mellitus mellitus [id number] with with diabetic diabetic neuropathy, neuropathy, unsp unsp Essential Essential Diagnosis Active Madelaine (primary) (primary) 05-14 [facility] hypertensio hypertensio [id number] n n Chronic Chronic Diagnosis Active Madelaine obstructive obstructive 05-14 [facility] pulmonary pulmonary [id number] disease, disease, unspecified unspecified G47.33 G47.33 Diagnosis Active Madelaine 05-14 [facility] [id number] Pain frequent Pain Mgmt Resolve 2018-06-14 Darya pain d 01-26 14:43:00 (Tejas) 09:45: Analilia 00 [id number] Cardio edema Cardiovasc Resolve 2018-02-18 Darya ular d 01-26 13:35:00 (Tejas) 09:45: Analilia 00 [id number] Cardio knowledge/s Cardiovasc Resolve 2018-02-18 Darya kill ular d 01-26 13:35:00 (Tejas) deficit: pt 09:45: Analilia 00 [id number] Respiratory dyspnea Respirator Resolve 2018-04-24 Darya present y d 01-26 15:19:00 (Tejas) 09:45: Analilia 00 [id number] Respiratory CPAP Respirator Resolve 2018-04-24 Quality treatments y d 9-15 15:19:00 Realtime7 in home 09:45: 00 Endo/Sen diabetic Endo/Sen Resolve 2018-02-25 Darya foot care d 9-15 14:00:00 (Tejas) 09:45: Billingsley [id number] Integument surgical Integument Resolve 2018-03-25 Darya wound d 9-15 14:35:00 (Tejas) present 09:45: Billingsley [id number] Integument skin Integument Resolve 2018-03-25 Darya integrity d 9-15 14:35:00 (Tejas) risk 09:45: Billingsley [id number] Integument other wound Integument Resolve 2018-03-25 Quality present d 9-15 14:35:00 Realtime7 09:45: 00 Nutrition nutritional Nutrition Resolve 2018-03-15 Darya restriction d 9-15 15:24:00 (Tejas) s 09:45: Billingsley [id number] Elimination urinary Eliminatio Resolve 2018-03-01 Darya incontinenc n d 9-15 09:00:00 (Tejas) e 09:45: Billingsley 00 [id number] Neuro confusion Neuro/Emot Resolve 2018-11-11 Darya present ion d 9-15 14:00:00 (Tejas) 09:45: Billingsley 00 [id number] Neuro anxiety Neuro/Emot Resolve 2018-11-11 Darya present ion d 9-15 14:00:00 (Tejas) 09:45: Billingsley [id number] Activity ADL Activity Resolve 2018-11-11 Darya assistance d 9-15 14:00:00 (Tejas) required 09:45: Billingsley [id number] Safety sanitation Safety Resolve 2018-10-25 Darya hazards d 9-15 15:10:00 (Tejas) present 09:45: Billingsley [id number] Safety fall risk Safety Resolve 2018-10-25 Draya factor d 9-15 15:10:00 (Tejas) present 09:45: Billingsley [id number] Safety risk for Safety Resolve 2018-10-25 Darya hospitaliza d 9-15 15:10:00 (Tejas) tion 09:45: Billingsley 00 [id number] Safety can be left Safety Resolve 2018-11-11 Darya alone for d 9-15 14:00:00 (Tejas) only short 09:45: Billingsley periods 00 [id number] Medication oral med Meds Resolve 2018-03-15 Darya assistance d 9-15 15:24:00 (Tejsa) required 09:45: Billingsley [id number] Medication knowledge/s Meds Resolve 2018-03-15 Darya kill d 9-15 15:24:00 (Tejas) deficit: pt 09:45: Billingsley [id number] Medication potential Meds Resolve 2018-03-15 Darya clinically d 9-15 15:24:00 (Tejas) significant 09:45: Billingsley medication [id number] issue Musculoskel transfer Musculoske Unknown Quality etal assistance letal 01-26 Realtime7 required 09:45: 00 Sensory impaired Sensory Resolve 2018-11-11 Quality verbal d 917 14:00:00 Realtime7 communicati 14:00: on 24 Endo/Sen glucose Endo/Sen Resolve 2018-02-25 Cherrise tolerance d 01-31 14:00:00 Olya problem 13:25: [id number] 00 Nutrition knowledge/s Nutrition Resolve 2018-03-15 Cherrise kill d 01-31 15:24:00 Olya deficit: pt 13:25: [id number] 00 Elimination urinary Eliminatio Resolve 2018-03-01 Cherrise urgency n d 01-31 09:00:00 [place] 13:25: [id number] 00 Elimination urinary Eliminatio Resolve 2018-03-01 Cherrise frequency n d 01-31 09:00:00 Olya 13:25: [id number] 00 Neuro impaired Neuro/Emot Resolve 2018-11-11 Cherrise decision-ma ion d 01-31 14:00:00 [place] wilver 13:25: [id number] 00 Musculoskel requires Musculoske Unknown Cherrise etal human letal 9-20 [place] assist to 13:25: [id number] leave home 00 Cardio hypertensio Cardiovasc Resolve 2018-02-18 Cherrise n ular d 9-24 13:35:00 [place] 13:05: [id number] 00 Musculoskel requires Musculoske Unknown 2017-05 Cherrise etal human letal 0-05 [place] assist to 13:40: [id number] leave home 00 Cardio hypertensio Cardiovasc Resolve 2017-052018-03-25 Cherrise n ular d 0-12 14:35:00 Olya 12:45: [id number] 00 Respiratory smoker Respirator Resolve 2017-052018-04-24 Cherrise y d 0-12 15:19:00 [place] 12:45: [id number] 00 Musculoskel transfer Musculoske Unknown 2017-05 Cherrise etal assistance letal 0-12 [place] required 12:45: [id number] 00 Endo/Sen glucose Endo/Sen Resolve 2017-052018-03-22 Cherrise tolerance d 0-22 15:29:00 [place] problem 13:50: [id number] 00 Elimination urinary Eliminatio Resolve 2017-052018-03-15 Cherrise incontinenc n d 0-22 15:24:00 Olya e 13:50: [id number] 00 Elimination urinary Eliminatio Resolve 2017-052018-03-15 Cherrise urgency n d 0-22 15:24:00 Olya 13:50: [id number] 00 Elimination urinary Eliminatio Resolve 2017-052018-03-15 Cherrise frequency n d 0-22 15:24:00 [place] 13:50: [id number] 00 Endo/Sen glucose Endo/Sen Resolve 2017-052018-03-22 Cherrise testing d 0-29 15:29:00 Olya dependence 13:30: [id number] 00 Nutrition knowledge/s Nutrition Resolve 2017-052018-03-25 Cherrise kill d 1-05 14:35:00 Olya deficit: pt 11:30: [id number] 00 Elimination urinary Eliminatio Resolve 2017-052018-03-22 Cherrise frequency n d 1-05 15:29:00 Olya 11:30: [id number] 00 Pain frequent Pain Mgmt Resolve 2017-052018-06-14 Stephany pain d 05-25 14:43:00 [facility] 14:35: h [id number] 00 Nutrition nutritional Nutrition Resolve 2017-052018-03-25 Stephany restriction d 05-25 14:35:00 [place]os s 14:35: h [id number] 00 Elimination urinary Eliminatio Resolve 2017-052018-04-05 Stephany incontinenc n d 05-25 14:45:00 [place] e 14:35: h [id number] 00 Elimination urinary Eliminatio Resolve 2017-052018-04-05 Stephany frequency n d 05-25 14:45:00 [place]-[facility] 14:35: h [id number] 00 Musculoskel requires Musculoske Unknown 2017-05 Stephany etal special letal 05-25 [facility] transportat 14:35: h [id number] ion 00 Cardio hypertensio Cardiovasc Resolve 2017-052018-04-12 Cherrise n ular d 05-27 13:46:00 [place] 12:00: [id number] 00 Endo/Sen glucose Endo/Sen Resolve 2017-052018-04-05 Cherrise tolerance d 05-27 14:45:00 Olya problem 12:00: [id number] 00 Elimination urinary Eliminatio Resolve 2017-052018-04-05 Cherrise urgency n d 06-01 14:45:00 [place] 12:45: [id number] 00 Elimination urinary Eliminatio Resolve 2017-052018-04-12 Cherrise urgency n d 06-08 13:46:00 Olya 10:55: [id number] 00 Elimination urinary Eliminatio Resolve 2017-052018-04-12 Cherrise frequency n d 06-08 13:46:00 [place] 10:55: [id number] 00 Endo/Sen glucose Endo/Sen Resolve 2017-052018-04-24 Cherrise tolerance d 06-16 15:19:00 [place] problem 12:20: [id number] 00 Elimination urinary Eliminatio Resolve 2017-052018-04-24 Cherrise frequency n d 06-16 15:19:00 [place] 12:20: [id number] 00 Cardio hypertensio Cardiovasc Resolve 2017-052018-04-24 Cherrise n ular d 2- 15:19:00 [place] 10:35: [id number] 00 Elimination urinary Eliminatio Resolve 2017-052018-04-24 Cherrise urgency n d 2 15:19:00 Olya 10:35: [id number] 00 Elimination urinary Eliminatio Resolve 2017-052018-04-24 Stephany incontinenc n d 06-25 15:19:00 [place] e 15:19: h [id number] 00 Cardio hypertensio Cardiovasc Resolve 2017-052018-06-07 Cherrise n ular d 2-14 13:31:00 [place] 13:15: [id number] 00 Respiratory dyspnea Respirator Active 2017-05 Cherrise present y 06-27 [place] 13:15: [id number] 00 Respiratory CPAP Respirator Active 2017-05 Cherrise treatments y 06-27 Olya in home 13:15: [id number] 00 Respiratory smoker Respirator Resolve 2017-052018-06-03 Cherrise y d 2-14 14:08:00 [place] 13:15: [id number] 00 Elimination urinary Eliminatio Resolve 2017-052018-05-31 Cherrise urgency n d 2-14 14:21:00 Olya 13:15: [id number] 00 Elimination urinary Eliminatio Resolve 2017-052018-05-31 Cherrise frequency n d 2-14 14:21:00 Olya 13:15: [id number] 00 Elimination diarrhea Eliminatio Resolve 2017-052018-05-31 Cherrise n d 2-14 14:21:00 [place] 13:15: [id number] 00 Endo/Sen glucose Endo/Sen Resolve 2017-052018-05-31 Cherrise tolerance d 2-24 14:21:00 [place] problem 13:10: [id number] 00 Infection s/s of Infection Active Stephany infection 05-31 [facility] 14:21: h [id number] 00 Respiratory smoker Respirator Resolve 2018-09-13 Cherrise y d 06-05 13:20:00 Olya 13:35: [id number] 00 Endo/Sen glucose Endo/Sen Resolve 2018-06-21 Cherrise tolerance d 06-05 10:26:00 [place] problem 13:35: [id number] 00 Elimination urinary Eliminatio Resolve 2018-06-14 Cherrise urgency n d 06-05 14:43:00 [place] 13:35: [id number] 00 Elimination urinary Eliminatio Resolve 2018-06-14 Cherrise frequency n d 06-05 14:43:00 [place] 13:35: [id number] 00 Cardio hypertensio Cardiovasc Resolve 2018-09-13 Cherrise n ular d 06-10 13:20:00 Olya 11:00: [id number] 00 Elimination urinary Eliminatio Resolve 2018-06-21 Cherrise urgency n d 06-19 10:26:00 [place] 10:50: [id number] 00 Elimination urinary Eliminatio Resolve 2018-06-21 Stephany frequency n d 06-21 10:26:00 [place]os 10:26: h [id number] 00 Endo/Sen glucose Endo/Sen Resolve 2018-06-28 Cherrise tolerance d 2- 14:32:00 [place] problem 11:25: [id number] 00 Elimination urinary Eliminatio Resolve 2018-06-28 Cherrise urgency n d 2- 14:32:00 Olya 11:25: [id number] 00 Elimination urinary Eliminatio Resolve 2018-06-28 Cherrise frequency n d 2- 14:32:00 [place] 11:50: [id number] 00 Endo/Sen glucose Endo/Sen Resolve 2018-07-12 Cherrise tolerance d 07-03 13:43:00 [place] problem 11:50: [id number] 00 Elimination urinary Eliminatio Resolve 2018-07-12 Cherrise urgency n d 07-08 13:43:00 [place] 12:30: [id number] 00 Neuro depressive Neuro/Emot Resolve 2018-11-11 Cherrise feelings ion d 2 14:00:00 Olya present 12:30: [id number] 00 Elimination urinary Eliminatio Resolve 2018-07-12 Cherrise frequency n d 2-27 13:43:00 Olya 10:45: [id number] 00 Elimination urinary Eliminatio Resolve 2018-07-24 Stephany frequency n d 3-06 12:48:00 [place] 11:53: h [id number] 00 Endo/Sen glucose Endo/Sen Resolve 2018-09-18 Cherrise tolerance d 3-11 10:59:00 Olya problem 10:15: [id number] 00 Elimination urinary Eliminatio Resolve 2018-07-24 Cherrise urgency n d 3-11 12:48:00 Olya 10:15: [id number] 00 Pain frequent Pain Mgmt Resolve 2018-07-24 Stephany pain d 3-13 12:48:00 [place] 12:48: h [id number] 00 Elimination urinary Eliminatio Resolve 2018-09-13 Cherrise urgency n d 3-15 13:20:00 Olya 12:40: [id number] 00 Musculoskel requires Musculoske Unknown Cherrise etal human letal 3-15 Olya assist to 12:40: [id number] leave home 00 Respiratory lung sounds Respirator Resolve 2018-09-13 Christel deficit y d - 13:20:00 Jeb 15:19: [id number] 00 Safety fire risk Safety Resolve 2018-10-25 Christel present d 3 15:10:00 Jeb 15:19: [id number] 00 Elimination urinary Eliminatio Resolve 2018-09-13 Cherrise frequency n d 4-08 13:20:00 [place] 12:50: [id number] 00 Integument surgical Integument Active Cherrise wound 4-24 Olya present 11:45: [id number] 00 Integument skin Integument Active Cherrise integrity 4-24 Olya risk 11:45: [id number] 00 Integument other wound Integument Active Cherrise present 4- [place] 11:45: [id number] 00 Nutrition knowledge/s Nutrition Active Cherrise kill 09-04 [place] deficit: pt 11:45: [id number] 00 Nutrition nutritional Nutrition Active Cherrise restriction 09-04 Olya s 11:45: [id number] 00 Musculoskel transfer Musculoske Resolve 2018-10-25 Cherrise etal assistance letal d 09-04 15:10:00 Olya required 11:45: [id number] 00 Musculoskel requires Musculoske Resolve 2018-10-25 Cherrise etal human letal d 09-04 15:10:00 Olya assist to 11:45: [id number] leave home 00 Elimination constipatio Eliminatio Resolve 2018-09-13 Cherrise n n d 09-09 13:20:00 [place] 14:10: [id number] 00 Pain frequent Pain Mgmt Resolve 2018-10-25 Madelaine pain d 08 15:10:00 [facility] 10:59: [id number] 00 Respiratory smoker Respirator Resolve 2018-10-25 Cherrise y d - 15:10:00 [place] 11:50: [id number] 00 Elimination urinary Eliminatio Resolve 2018-10-25 Cherrise urgency n d - 15:10:00 Olya 11:50: [id number] 00 Cardio hypertensio Cardiovasc Resolve 2018-11-11 Cherrise n ular d 10-09 14:00:00 Olya 11:20: [id number] 00 Endo/Sen glucose Endo/Sen Resolve 2018-10-25 Cherrise tolerance d 10-09 15:10:00 [place] problem 11:20: [id number] 00 Elimination urinary Eliminatio Resolve 2018-10-25 Conchita frequency n d 10-16 15:10:00 Shimon, 14:00: [id number] 00 Cardio edema Cardiovasc Resolve 2018-11-11 Cherrise ular d 6- 14:00:00 Olya 11:00: [id number] 00 Safety risk for Safety Resolve 2018-11-01 Conchita hospitaliza d 6-17 14:00:00 daniel Robins 14:30: [id number] 00 Respiratory smoker Respirator Resolve 2018-11-11 Cherrise y d 6-19 14:00:00 Olya 10:25: [id number] 00 Endo/Sen glucose Endo/Sen Resolve 2018-11-11 Cherrise tolerance d 6-19 14:00:00 Olya problem 10:25: [id number] 00 Elimination urinary Eliminatio Resolve 2018-11-11 Cherrise urgency n d 6-19 14:00:00 Olya 10:25: [id number] 00 Elimination urinary Eliminatio Resolve 2018-11-11 Cherrise frequency n d 6-19 14:00:00 Olya 10:25: [id number] 00 Musculoskel requires Musculoske Resolve 2018-12-23 Cherrise etal human letal d 6- 11:00:00 Olya assist to 10:25: [id number] leave home 00 Musculoskel requires Musculoske Resolve 2018-12-23 Kerry etal special letal d 6- 11:00:00 Maria Antonia transportat 18:30: [id number] ion 00 Safety fall risk Safety Resolve 2018-12-13 Cherrise factor d 7- 14:40:00 [place] present 14:45: [id number] 00 Neuro impaired Neuro/Emot Resolve 2018-12-13 Madelaine mullen ion d 7- 14:40:00 Jose Angel pettit 14:00: [id number] 00 Safety risk for Safety Resolve 2018-12-13 Madelaine garciaiza d 7-10 14:40:00 Ingrahm tion 14:00: [id number] 00 Cardio edema Cardiovasc Resolve 2018-12-23 Cherrise ular d 7-15 11:00:00 Olya 11:00: [id number] 00 Respiratory smoker Respirator Resolve 2018-12-23 Cherrise y d 7-15 11:00:00 [place] 11:00: [id number] 00 Endo/Sen glucose Endo/Sen Resolve 2019-01-01 Cherrise tolerance d 7-15 15:00:00 [place] problem 11:00: [id number] 00 Elimination urinary Eliminatio Resolve 2018-12-13 Cherrise urgency n d 7-15 14:40:00 Olya 11:00: [id number] 00 Safety sanitation Safety Resolve 2018-12-13 Cherrise hazards d 7-15 14:40:00 Olya present 11:00: [id number] 00 Elimination urinary Eliminatio Resolve 2018-12-13 Cherrise frequency n d 7 14:40:00 [place] 11:15: [id number] 00 Neuro depressive Neuro/Emot Resolve 2019-01-17 Cherrise feelings ion d 12-02 15:25:00 Olya present 11:15: [id number] 00 Cardio hypertensio Cardiovasc Resolve 2018-12-23 Cherrise n ular d 12-04 11:00:00 [place] 14:40: [id number] 00 Musculoskel knowledge/s Musculoske Resolve 2018-12-23 Cherrise etal kill letal d 12-16 11:00:00 Olya deficit: cg 14:15: [id number] 00 Elimination urinary Eliminatio Resolve 2018-12-23 Cherrise urgency n d 12-20 11:00:00 Olya 10:10: [id number] 00 Neuro depressive Neuro/Emot Unknown Cherrise feelings ion 12-20 [place] present 10:10: [id number] 00 Neuro impaired Neuro/Emot Resolve 2019-01-17 Cherrise decision-ma ion d 12-20 15:25:00 Olya wilver 10:10: [id number] 00 Safety risk for Safety Resolve 2018-12-23 Cherrise hospitaliza d 12-20 11:00:00 [place] tion 10:10: [id number] 00 Sensory impaired Sensory Resolve 2019-01-17 Madelaine verbal d 12-23 15:25:00 Ingrahm communicati 11:00: [id number] on 00 Cardio hypertensio Cardiovasc Resolve 2019-01-01 Cherrise n ular d 8-14 15:00:00 [place] 12:00: [id number] 00 Respiratory smoker Respirator Resolve 2019-01-01 Cherrise y d 8-14 15:00:00 Olya 12:00: [id number] 00 Elimination urinary Eliminatio Resolve 2019-01-01 Cherrise urgency n d 8-14 15:00:00 Olya 12:00: [id number] 00 Neuro anxiety Neuro/Emot Resolve 2019-01-17 Cherrise present ion d 8 15:25:00 [place] 12:00: [id number] 00 Safety risk for Safety Resolve 2019-01-01 Cherrise hospitaliza d 8 15:00:00 [place] tion 12:00: [id number] 00 Musculoskel requires Musculoske Unknown Cherrise etal human letal 12-25 [place] assist to 12:00: [id number] leave home 00 Respiratory smoker Respirator Resolve 2019-01-17 Cherrise y d 01-03 15:25:00 Olya 11:45: [id number] 00 Elimination urinary Eliminatio Resolve 2019-01-17 Cherrise urgency n d 01-03 15:25:00 Olya 11:45: [id number] 00 Safety fall risk Safety Resolve 2019-01-06 Cherrise factor d 01-03 12:25:00 Olya present 11:45: [id number] 00 Safety risk for Safety Resolve 2019-02-12 Cherrise hospitaliza d 01-03 15:15:00 [place] tion 11:45: [id number] 00 Neuro memory Neuro/Emot Active Cherrise deficit ion 01-13 [place] needing 11:20: [id number] supervision 00 Elimination urinary Eliminatio Resolve 2019-01-17 Madelaine incontinenc n d 01-17 15:25:00 Ingrahm e 15:25: [id number] 00 Safety fall risk Safety Resolve 2019-01-17 Desiree factor d 01-17 15:25:00 Rashid present 15:25: [id number] 00 Cardio hypertensio Cardiovasc Resolve 2019-01-24 Narciso aguilar ular d 01-20 09:00:00 [place] 11:15: [id number] 00 Safety sanitation Safety Resolve 2019-02-12 Cherrise hazards d 01-20 15:15:00 [place] present 11:15: [id number] 00 Respiratory smoker Respirator Resolve 2019-01-24 Madelaine y d 01-24 09:00:00 Ingrahm 09:00: [id number] 00 Musculoskel transfer Musculoske Active Cherrise etal assistance letal 01-29 Olya required 13:25: [id number] 00 Musculoskel requires Musculoske Active Cherrise etal human letal 01-29 [place] assist to 13:25: [id number] leave home 00 Musculoskel requires Musculoske Active Cherrise etal special letal 01-29 [place] transportat 13:25: [id number] ion 00 Respiratory smoker Respirator Resolve 2019-02-05 Cherrise y d 02-03 15:10:00 [place] 10:00: [id number] 00 Elimination urinary Eliminatio Resolve 2019-02-12 Cherrise urgency n d 02-03 15:15:00 [place] 10:00: [id number] 00 Safety fall risk Safety Resolve 2019-02-12 Cherrise factor d 9 15:15:00 Olya present 11:15: [id number] 00 Cardio hypertensio Cardiovasc Resolve 2018-052019-02-19 Narciso hernandez d 0-04 14:00:00 [place] 11:50: [id number] 00 Respiratory smoker Respirator Resolve 2018-052019-02-19 Narciso y d 0-07 14:00:00 [place] 11:30: [id number] 00 Safety risk for Safety Resolve 2018-052019-03-12 Madelaine navarrete d 0-09 15:00:00 Ingrahm tion 14:00: [id number] 00 Cardio hypertensio Cardiovasc Resolve 2018-052019-03-19 Cherrise n ular d 0-18 14:00:00 [place] 12:30: [id number] 00 Respiratory smoker Respirator Resolve 2018-052019-03-12 Cherrise y d 018 15:00:00 [place] 12:30: [id number] 00 Elimination urinary Eliminatio Resolve 2018-052019-03-12 Cherrise urgency n d 0-18 15:00:00 Olya 12:30: [id number] 00 Respiratory smoker Respirator Resolve 2018-052019-03-19 Cherrise y d 04 14:00:00 Olya 09:40: [id number] 00 Elimination urinary Eliminatio Resolve 2018-052019-03-19 Cherrise urgency n d 05-17 14:00:00 Olya 09:40: [id number] 00 Safety risk for Safety Active 2018-05 Cherrise hospitaliza 05-17 [place] tion 09:40: [id number] 00 Safety fall risk Safety Active 2018-05 Madelaine factor 05-19 Ingrahm present 14:00: [id number] 00 Respiratory smoker Respirator Active 2018-05 Cherrise y 05-28 [place] 10:55: [id number] 00 Elimination urinary Eliminatio Active 2018-05 Cherrise incontinenc n 05-28 [place] e 10:55: [id number] 00 Elimination urinary Eliminatio Active 2018-05 Cherrise urgency n 05-28 [place] 10:55: [id number] 00 Neuro depressive Neuro/Emot Active 2018-05 Cherrise feelings ion 05-28 [place] present 10:55: [id number] 00 Neuro impaired Neuro/Emot Active 2018-05 Cherrise decision-ma ion 05-28 [place] wilver 10:55: [id number] 00 Safety sanitation Safety Active 2018-05 Cherrise hazards 05-28 [place] present 10:55: [id number] 00 Cardio hypertensio Cardiovasc Active 2018-05 Cherrise n ular 06-07 [place] 11:30: [id number] 00 Allergies, Adverse Reactions, Alerts Allergy Allergy [...] n 20 mg n 20 mg 01-26 MD,[place] tablet tablet furosemide furosemide 2017- No [place]ara [...] Unknown [facility] l[facility] l[facility] No Rafita Unknown Unknown 30 mg 30 mg -[facility] hydroCHLORO hydroCHLORO No Rafita [...]
--- OUTSIDE RECORDS SUMMARY | 2019-05-09 12:29 | XMS REPORT ---
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-26 Ingrm infct infct [id number] causing causing diseases diseases classd classd elswhr elswhr Type 2 Type 2 Diagnosis Active Madelaine diabetes diabetes 05-14 [facility] mellitus mellitus [id number] with with diabetic diabetic neuropathy, neuropathy, unsp unsp Essential Essential Diagnosis Active Madelaine (primary) (primary) 05-14 [facility] hypertensio hypertensio [id number] n n Chronic Chronic Diagnosis Active Madelaine obstructive obstructive 05-14 [facility] pulmonary pulmonary [id number] disease, disease, unspecified unspecified G47.33 G47.33 Diagnosis Active Madelaine 05-14 Ingrahm [id number] Pain frequent Pain Mgmt Resolve 2018-06-14 Darya pain d 01-26 14:43:00 (Tejas) 09:45: Analilia 00 [id number] Cardio edema Cardiovasc Resolve 2018-02-18 Darya ular d 01-26 13:35:00 (Tejas) 09:45: Analilia 00 [id number] Cardio knowledge/s Cardiovasc Resolve 2018-02-18 Darya kill ular d 01-26 13:35:00 (Tejas) deficit: pt 09:45: Analilia 00 [id number] Respiratory dyspnea Respirator Resolve 2018-04-24 Darya present y d 01-26 15:19:00 (Tejas) 09:45: Analilia 00 [id number] Respiratory CPAP Respirator Resolve 2018-04-24 Quality treatments y d 9-15 15:19:00 Realtime7 in home 09:45: 00 Endo/Sen diabetic Endo/Sen Resolve 2018-02-25 Darya foot care d 9-15 14:00:00 (Tejas) 09:45: Billingsley [id number] Integument surgical Integument Resolve 2018-03-25 Darya wound d 9-15 14:35:00 (Tejas) present 09:45: Billingsley [id number] Integument skin Integument Resolve 2018-03-25 Darya integrity d 9-15 14:35:00 (Tejas) risk 09:45: Billingsley [id number] Integument other wound Integument Resolve 2018-03-25 Quality present d 9-15 14:35:00 Realtime7 09:45: 00 Nutrition nutritional Nutrition Resolve 2018-03-15 Darya restriction d 9-15 15:24:00 (Tejas) s 09:45: Billingsley [id number] Elimination urinary Eliminatio Resolve 2018-03-01 Darya incontinenc n d 9-15 09:00:00 (Tejas) e 09:45: Billingsley 00 [id number] Neuro confusion Neuro/Emot Resolve 2018-11-11 Darya present ion d 9-15 14:00:00 (Tejas) 09:45: Billingsley 00 [id number] Neuro anxiety Neuro/Emot Resolve 2018-11-11 Darya present ion d 9-15 14:00:00 (Tejas) 09:45: Billingsley [id number] Activity ADL Activity Resolve 2018-11-11 Darya assistance d 9-15 14:00:00 (Tejas) required 09:45: Billingsley [id number] Safety sanitation Safety Resolve 2018-10-25 Darya hazards d 9-15 15:10:00 (Tejas) present 09:45: Billingsley [id number] Safety fall risk Safety Resolve 2018-10-25 Darya factor d 9-15 15:10:00 (Tejas) present 09:45: Billingsley [id number] Safety risk for Safety Resolve 2018-10-25 Darya hospitaliza d 9-15 15:10:00 (Tejas) tion 09:45: Billingsley 00 [id number] Safety can be left Safety Resolve 2018-11-11 Darya alone for d 9-15 14:00:00 (Tejas) only short 09:45: Billingsley periods 00 [id number] Medication oral med Meds Resolve 2018-03-15 Darya assistance d 9-15 15:24:00 (Tejas) required 09:45: Billingsley [id number] Medication knowledge/s Meds Resolve 2018-03-15 Darya kill d 9-15 15:24:00 (Tejas) deficit: pt 09:45: Billingsley [id number] Medication potential Meds Resolve 2018-03-15 Darya clinically d 9-15 15:24:00 (Tejas) significant 09:45: Billingsley medication [id number] issue Musculoskel transfer Musculoske Unknown Quality etal assistance letal 01-26 Realtime7 required 09:45: 00 Sensory impaired Sensory Resolve 2018-11-11 Quality verbal d 917 14:00:00 Realtime7 communicati 14:00: on 24 Endo/Sen glucose Endo/Sen Resolve 2018-02-25 Cherrise tolerance d 01-31 14:00:00 [place] problem 13:25: [id number] 00 Nutrition knowledge/s Nutrition Resolve 2018-03-15 Cherrise kill d 01-31 15:24:00 Olya deficit: pt 13:25: [id number] 00 Elimination urinary Eliminatio Resolve 2018-03-01 Cherrise urgency n d 01-31 09:00:00 [place] 13:25: [id number] 00 Elimination urinary Eliminatio Resolve 2018-03-01 Cherrise frequency n d 01-31 09:00:00 Olya 13:25: [id number] 00 Neuro impaired Neuro/Emot Resolve 2018-11-11 Cherrise decision-ma ion d 01-31 14:00:00 [place] wilver 13:25: [id number] 00 Musculoskel requires Musculoske Unknown Cherrise etal human letal 9-20 Olya assist to 13:25: [id number] leave home 00 Cardio hypertensio Cardiovasc Resolve 2018-02-18 Cherrise n ular d 9-24 13:35:00 Olya 13:05: [id number] 00 Musculoskel requires Musculoske Unknown 2017-05 Cherrise etal human letal 0-05 [place] assist to 13:40: [id number] leave home 00 Cardio hypertensio Cardiovasc Resolve 2017-052018-03-25 Cherrise n ular d 0-12 14:35:00 [place] 12:45: [id number] 00 Respiratory smoker Respirator Resolve 2017-052018-04-24 Cherrise y d 0-12 15:19:00 [place] 12:45: [id number] 00 Musculoskel transfer Musculoske Unknown 2017-05 Cherrise etal assistance letal 0-12 Olya required 12:45: [id number] 00 Endo/Sen glucose Endo/Sen Resolve 2017-052018-03-22 Cherrise tolerance d 0-22 15:29:00 Olya problem 13:50: [id number] 00 Elimination urinary Eliminatio Resolve 2017-052018-03-15 Cherrise incontinenc n d 0-22 15:24:00 Olya e 13:50: [id number] 00 Elimination urinary Eliminatio Resolve 2017-052018-03-15 Cherrise urgency n d 0-22 15:24:00 Olya 13:50: [id number] 00 Elimination urinary Eliminatio Resolve 2017-052018-03-15 Cherrise frequency n d 0-22 15:24:00 [place] 13:50: [id number] 00 Endo/Sen glucose Endo/Sen Resolve 2017-052018-03-22 Cherrise testing d 0-29 15:29:00 Olya dependence 13:30: [id number] 00 Nutrition knowledge/s Nutrition Resolve 2017-052018-03-25 Cherrise kill d 1-05 14:35:00 Olya deficit: pt 11:30: [id number] 00 Elimination urinary Eliminatio Resolve 2017-052018-03-22 Cherrise frequency n d 1-05 15:29:00 Olya 11:30: [id number] 00 Pain frequent Pain Mgmt Resolve 2017-052018-06-14 Stephany pain d 05-25 14:43:00 [place] 14:35: h [id number] 00 Nutrition nutritional Nutrition Resolve 2017-052018-03-25 Stephany restriction d 05-25 14:35:00 [place] s 14:35: h [id number] 00 Elimination urinary Eliminatio Resolve 2017-052018-04-05 Stephany incontinenc n d 05-25 14:45:00 [place] e 14:35: h [id number] 00 Elimination urinary Eliminatio Resolve 2017-052018-04-05 Stephany frequency n d 05-25 14:45:00 [place] 14:35: h [id number] 00 Musculoskel requires Musculoske Unknown 2017-05 Stephany etal special letal 05-25 [place] transportat 14:35: h [id number] ion 00 Cardio hypertensio Cardiovasc Resolve 2017-052018-04-12 Cherrise n ular d 05-27 13:46:00 [place] 12:00: [id number] 00 Endo/Sen glucose Endo/Sen Resolve 2017-052018-04-05 Cherrise tolerance d 05-27 14:45:00 [place] problem 12:00: [id number] 00 Elimination urinary Eliminatio Resolve 2017-052018-04-05 Cherrise urgency n d 06-01 14:45:00 [place] 12:45: [id number] 00 Elimination urinary Eliminatio Resolve 2017-052018-04-12 Cherrise urgency n d 06-08 13:46:00 [place] 10:55: [id number] 00 Elimination urinary Eliminatio Resolve 2017-052018-04-12 Cherrise frequency n d 06-08 13:46:00 Olya 10:55: [id number] 00 Endo/Sen glucose Endo/Sen Resolve 2017-052018-04-24 Cherrise tolerance d 06-16 15:19:00 [place] problem 12:20: [id number] 00 Elimination urinary Eliminatio Resolve 2017-052018-04-24 Cherrise frequency n d 06-16 15:19:00 Olya 12:20: [id number] 00 Cardio hypertensio Cardiovasc Resolve 2017-052018-04-24 Cherrise n ular d 2- 15:19:00 Olya 10:35: [id number] 00 Elimination urinary Eliminatio Resolve 2017-052018-04-24 Cherrise urgency n d 2 15:19:00 [place] 10:35: [id number] 00 Elimination urinary Eliminatio Resolve 2017-052018-04-24 Stephany incontinenc n d 06-25 15:19:00 [place] e 15:19: h [id number] 00 Cardio hypertensio Cardiovasc Resolve 2017-052018-06-07 Cherrise n ular d 2-14 13:31:00 [place] 13:15: [id number] 00 Respiratory dyspnea Respirator Active 2017-05 Cherrise present y 06-27 [place] 13:15: [id number] 00 Respiratory CPAP Respirator Active 2017-05 Cherrise treatments y 06-27 [place] in home 13:15: [id number] 00 Respiratory smoker Respirator Resolve 2017-052018-06-03 Cherrise y d 2-14 14:08:00 [place] 13:15: [id number] 00 Elimination urinary Eliminatio Resolve 2017-052018-05-31 Cherrise urgency n d 2-14 14:21:00 [place] 13:15: [id number] 00 Elimination urinary Eliminatio Resolve 2017-052018-05-31 Cherrise frequency n d 2-14 14:21:00 Olya 13:15: [id number] 00 Elimination diarrhea Eliminatio Resolve 2017-052018-05-31 Cherrise n d 2-14 14:21:00 Olya 13:15: [id number] 00 Endo/Sen glucose Endo/Sen Resolve 2017-052018-05-31 Cherrise tolerance d 2-24 14:21:00 [place] problem 13:10: [id number] 00 Infection s/s of Infection Active Stephany infection 05-31 [place] 14:21: h [id number] 00 Respiratory smoker Respirator Resolve 2018-09-13 Cherrise y d 06-05 13:20:00 Olya 13:35: [id number] 00 Endo/Sen glucose Endo/Sen Resolve 2018-06-21 Cherrise tolerance d 06-05 10:26:00 Olya problem 13:35: [id number] 00 Elimination urinary Eliminatio Resolve 2018-06-14 Cherrise urgency n d 06-05 14:43:00 Olya 13:35: [id number] 00 Elimination urinary Eliminatio Resolve 2018-06-14 Cherrise frequency n d 06-05 14:43:00 Olya 13:35: [id number] 00 Cardio hypertensio Cardiovasc Resolve 2018-09-13 Cherrise n ular d 06-10 13:20:00 [place] 11:00: [id number] 00 Elimination urinary Eliminatio Resolve 2018-06-21 Cherrise urgency n d 06-19 10:26:00 [place] 10:50: [id number] 00 Elimination urinary Eliminatio Resolve 2018-06-21 Stephany frequency n d 06-21 10:26:00 [place] 10:26: h [id number] 00 Endo/Sen glucose Endo/Sen Resolve 2018-06-28 Cherrise tolerance d 2- 14:32:00 Olya problem 11:25: [id number] 00 Elimination urinary Eliminatio Resolve 2018-06-28 Cherrise urgency n d 2- 14:32:00 [place] 11:25: [id number] 00 Elimination urinary Eliminatio Resolve 2018-06-28 Cherrise frequency n d 2- 14:32:00 Olya 11:50: [id number] 00 Endo/Sen glucose Endo/Sen Resolve 2018-07-12 Cherrise tolerance d 07-03 13:43:00 [place] problem 11:50: [id number] 00 Elimination urinary Eliminatio Resolve 2018-07-12 Cherrise urgency n d 07-08 13:43:00 Olya 12:30: [id number] 00 Neuro depressive Neuro/Emot Resolve 2018-11-11 Cherrise feelings ion d 2 14:00:00 [place] present 12:30: [id number] 00 Elimination urinary Eliminatio Resolve 2018-07-12 Cherrise frequency n d 2-27 13:43:00 [place] 10:45: [id number] 00 Elimination urinary Eliminatio Resolve 2018-07-24 Stephany frequency n d 3-06 12:48:00 [place] 11:53: h [id number] 00 Endo/Sen glucose Endo/Sen Resolve 2018-09-18 Cherrise tolerance d 3-11 10:59:00 Olya problem 10:15: [id number] 00 Elimination urinary Eliminatio Resolve 2018-07-24 Cherrise urgency n d 3-11 12:48:00 Olya 10:15: [id number] 00 Pain frequent Pain Mgmt Resolve 2018-07-24 Stephany pain d 3-13 12:48:00 [place] 12:48: h [id number] 00 Elimination urinary Eliminatio Resolve 2018-09-13 Cherrise urgency n d 3-15 13:20:00 [place] 12:40: [id number] 00 Musculoskel requires Musculoske Unknown Cherrise etal human letal 3-15 [place] assist to 12:40: [id number] leave home 00 Respiratory lung sounds Respirator Resolve 2018-09-13 Christel deficit y d - 13:20:00 Jeb 15:19: [id number] 00 Safety fire risk Safety Resolve 2018-10-25 Christel present d 3 15:10:00 Jeb 15:19: [id number] 00 Elimination urinary Eliminatio Resolve 2018-09-13 Cherrise frequency n d 4-08 13:20:00 [place] 12:50: [id number] 00 Integument surgical Integument Active Cherrise wound 4-24 Olya present 11:45: [id number] 00 Integument skin Integument Active Cherrise integrity 4-24 Olya risk 11:45: [id number] 00 Integument other wound Integument Active Cherrise present 4- Olya 11:45: [id number] 00 Nutrition knowledge/s Nutrition Active Cherrise kill 09-04 [place] deficit: pt 11:45: [id number] 00 Nutrition nutritional Nutrition Active Cherrise restriction 09-04 Olya s 11:45: [id number] 00 Musculoskel transfer Musculoske Resolve 2018-10-25 Cherrise etal assistance letal d 09-04 15:10:00 [place] required 11:45: [id number] 00 Musculoskel requires Musculoske Resolve 2018-10-25 Cherrise etal human letal d 09-04 15:10:00 [place] assist to 11:45: [id number] leave home 00 Elimination constipatio Eliminatio Resolve 2018-09-13 Cherrise n n d 09-09 13:20:00 Olya 14:10: [id number] 00 Pain frequent Pain Mgmt Resolve 2018-10-25 Madelaine [facility] d 08 [facility] [id number] 00 Respiratory smoker Respirator Resolve 2018-10-25 Cherrise y d - 15:10:00 Olya 11:50: [id number] 00 Elimination urinary Eliminatio Resolve 2018-10-25 Cherrise urgency n d - 15:10:00 Olya 11:50: [id number] 00 Cardio hypertensio Cardiovasc Resolve 2018-11-11 Cherrise n ular d 10-09 14:00:00 [place] 11:20: [id number] 00 Endo/Sen glucose Endo/Sen Resolve 2018-10-25 Cherrise tolerance d 10-09 15:10:00 Olya problem 11:20: [id number] 00 Elimination urinary Eliminatio Resolve 2018-10-25 Con[place]ita frequency n d 10-16 15:10:00 Shimon, 14:00: [id number] 00 Cardio edema Cardiovasc Resolve 2018-11-11 Cherrise ular d 6- 14:00:00 [place] 11:00: [id number] 00 Safety risk for Safety Resolve 2018-11-01 Conchita hospitaliza d 6-17 14:00:00 daniel Robins 14:30: [id number] 00 Respiratory smoker Respirator Resolve 2018-11-11 Cherrise y d 6-19 14:00:00 Olya 10:25: [id number] 00 Endo/Sen glucose Endo/Sen Resolve 2018-11-11 Cherrise tolerance d 6-19 14:00:00 [place] problem 10:25: [id number] 00 Elimination urinary Eliminatio Resolve 2018-11-11 Cherrise urgency n d 6-19 14:00:00 Olya 10:25: [id number] 00 Elimination urinary Eliminatio Resolve 2018-11-11 Cherrise frequency n d 6-19 14:00:00 Olya 10:25: [id number] 00 Musculoskel requires Musculoske Resolve 2018-12-23 Cherrise etal human letal d 6- 11:00:00 Olya assist to 10:25: [id number] leave home 00 Musculoskel requires Musculoske Resolve 2018-12-23 Kerry etal special letal d 6- 11:00:00 Maria Antonia transportat 18:30: [id number] ion 00 Safety fall risk Safety Resolve 2018-12-13 Cherrise factor d 7- 14:40:00 Olya present 14:45: [id number] 00 Neuro impaired Neuro/Emot Resolve 2018-12-13 Madelaine mullen ion d 7- 14:40:00 Jose Angel pettit 14:00: [id number] 00 Safety risk for Safety Resolve 2018-12-13 Madelaine garciaiza d 7-10 14:40:00 Ingrahm tion 14:00: [id number] 00 Cardio edema Cardiovasc Resolve 2018-12-23 Cherrise ular d 7-15 11:00:00 Olya 11:00: [id number] 00 Respiratory smoker Respirator Resolve 2018-12-23 Cherrise y d 7-15 11:00:00 Olya 11:00: [id number] 00 Endo/Sen glucose Endo/Sen Resolve 2019-01-01 Cherrise tolerance d 7-15 15:00:00 Olya problem 11:00: [id number] 00 Elimination urinary Eliminatio Resolve 2018-12-13 Cherrise urgency n d 7-15 14:40:00 [place] 11:00: [id number] 00 Safety sanitation Safety Resolve 2018-12-13 Cherrise hazards d 7-15 14:40:00 [place] present 11:00: [id number] 00 Elimination urinary Eliminatio Resolve 2018-12-13 Cherrise frequency n d 7 14:40:00 Olya 11:15: [id number] 00 Neuro depressive Neuro/Emot Resolve 2019-01-17 Cherrise feelings ion d 12-02 15:25:00 Olya present 11:15: [id number] 00 Cardio hypertensio Cardiovasc Resolve 2018-12-23 Cherrise n ular d 12-04 11:00:00 [place] 14:40: [id number] 00 Musculoskel knowledge/s Musculoske Resolve 2018-12-23 Cherrise etal kill letal d 12-16 11:00:00 Olya deficit: cg 14:15: [id number] 00 Elimination urinary Eliminatio Resolve 2018-12-23 Cherrise urgency n d 12-20 11:00:00 [place] 10:10: [id number] 00 Neuro depressive Neuro/Emot Unknown Cherrise feelings ion 12-20 Olya present 10:10: [id number] 00 Neuro impaired Neuro/Emot Resolve 2019-01-17 Cherrise decision-ma ion d 12-20 15:25:00 [place] wilver 10:10: [id number] 00 Safety risk for Safety Resolve 2018-12-23 Cherrise hospitaliza d 12-20 11:00:00 Olya tion 10:10: [id number] 00 Sensory impaired Sensory Resolve 2019-01-17 Madelaine verbal d 12-23 15:25:00 Ingrahm communicati 11:00: [id number] 00 Cardio hypertensio Cardiovasc Resolve 2019-01-01 Cherrise n ular d 8-14 15:00:00 Olya 12:00: [id number] 00 Respiratory smoker Respirator Resolve 2019-01-01 Cherrise y d 8-14 15:00:00 [place] 12:00: [id number] 00 Elimination urinary Eliminatio Resolve 2019-01-01 Cherrise urgency n d 8-14 15:00:00 Olya 12:00: [id number] 00 Neuro anxiety Neuro/Emot Resolve 2019-01-17 Cherrise present ion d 8 15:25:00 Olya 12:00: [id number] 00 Safety risk for Safety Resolve 2019-01-01 Cherrise hospitaliza d 8 15:00:00 [place] tion 12:00: [id number] 00 Musculoskel requires Musculoske Unknown Cherrise etal human letal 12-25 [place] assist to 12:00: [id number] leave home 00 Respiratory smoker Respirator Resolve 2019-01-17 Cherrise y d 01-03 15:25:00 Olya 11:45: [id number] 00 Elimination urinary Eliminatio Resolve 2019-01-17 Cherrise urgency n d 01-03 15:25:00 Olya 11:45: [id number] 00 Safety fall risk Safety Resolve 2019-01-06 Cherrise factor d 01-03 12:25:00 [place] present 11:45: [id number] 00 Safety risk for Safety Resolve 2019-02-12 Cherrise hospitaliza d 01-03 15:15:00 Olya tion 11:45: [id number] 00 Neuro memory Neuro/Emot Active Cher[place] deficit ion 01-13 Olya needing 11:20: [id number] supervision 00 Elimination urinary Eliminatio Resolve 2019-01-17 Madelaine incontinenc n d 01-17 15:25:00 Ingrahm e 15:25: [id number] 00 Safety fall risk Safety Resolve 2019-01-17 Desiree factor d 01-17 15:25:00 Rashid present 15:25: [id number] 00 Cardio hypertensio Cardiovasc Resolve 2019-01-24 Narciso aguilar ular d 01-20 09:00:00 Olya 11:15: [id number] 00 Safety sanitation Safety Resolve 2019-02-12 Cherrise hazards d 01-20 15:15:00 Olya present 11:15: [id number] 00 Respiratory smoker Respirator Resolve 2019-01-24 Madelaine y d 01-24 09:00:00 Ingrahm 09:00: [id number] 00 Musculoskel transfer Musculoske Active Cherrise etal assistance letal 01-29 Olya required 13:25: [id number] 00 Musculoskel requires Musculoske Active Cherrise etal human letal 01-29 [place] assist to 13:25: [id number] leave home 00 Musculoskel requires Musculoske Active Cherrise etal special letal 01-29 Olya transportat 13:25: [id number] ion 00 Respiratory smoker Respirator Resolve 2019-02-05 Cherrise y d 02-03 15:10:00 Olya 10:00: [id number] 00 Elimination urinary Eliminatio Resolve 2019-02-12 Cherrise urgency n d 02-03 15:15:00 [place] 10:00: [id number] 00 Safety fall risk Safety Resolve 2019-02-12 Cherrise factor d 9 15:15:00 [place] present 11:15: [id number] 00 Cardio hypertensio Cardiovasc Resolve 2018-052019-02-19 Narciso hernandez d 0-04 14:00:00 Olya 11:50: [id number] 00 Respiratory smoker Respirator Resolve 2018-052019-02-19 Narciso y d 0-07 14:00:00 [place] 11:30: [id number] 00 Safety risk for Safety Resolve 2018-052019-03-12 Madelaine navarrete d 0-09 15:00:00 Ingrahm tion 14:00: [id number] 00 Cardio hypertensio Cardiovasc Resolve 2018-052019-03-19 Cherrise n ular d 0-18 14:00:00 [place] 12:30: [id number] 00 Respiratory smoker Respirator Resolve 2018-052019-03-12 Cherrise y d 018 15:00:00 [place] 12:30: [id number] 00 Elimination urinary Eliminatio Resolve 2018-052019-03-12 Cher[place] urgency n d 0-18 15:00:00 Olya 12:30: [id number] 00 Respiratory smoker Respirator Resolve 2018-052019-03-19 Cherrise y d 04 14:00:00 [place] 09:40: [id number] 00 Elimination urinary Eliminatio Resolve 2018-052019-03-19 Cherrise urgency n d 05-17 14:00:00 [place] 09:40: [id number] 00 Safety risk for Safety Active 2018-05 Cherrise hospitaliza 05-17 [place] tion 09:40: [id number] 00 Safety fall risk Safety Active 2018-05 Madelaine factor 05-19 Ingrahm present 14:00: [id number] 00 Respiratory smoker Respirator Active 2018-05 Cherrise y 05-28 [place] 10:55: [id number] 00 Elimination urinary Eliminatio Active 2018-05 Cherrise incontinenc n 05-28 [place] e 10:55: [id number] 00 Elimination urinary Eliminatio Active 2018-05 Cherrise urgency n 05-28 [place] 10:55: [id number] 00 Neuro depressive Neuro/Emot Active 2018-05 Cherrise feelings ion 05-28 [place] present 10:55: [id number] 00 Neuro impaired Neuro/Emot Active 2018-05 Cherrise decision-ma ion 05-28 [place] wilver 10:55: [id number] 00 Safety sanitation Safety Active 2018-05 Cherrise hazards 05-28 [place] present 10:55: [id number] 00 Cardio hypertensio Cardiovasc Active 2018-05 Cherrise n ular 06-07 [place] 11:30: [id number] 00 Allergies, Adverse Reactions, Alerts Allergy Allergy [...] Unknown Unknown 20 mg 20 mg 01-26 ,[place] tablet tablet losartan losartan 2017- No [place] Unknown Unknown 100 mg 100 mg 01-26 ,[place] tablet tablet metFORMIN metFORMIN No [place] Unknown Unknown 1,000 mg 1,000 mg 01-26 ,[place] tablet tablet Dulera 200 Dulera 200 2018- [...] Unknown [facility] 20 [facility] No [place] Unknown Unknown 30 mg 30 [facility]ORO hydroCHLORO No [...]
--- OUTSIDE RECORDS SUMMARY | 2019-05-09 12:30 | XMS REPORT ---
:1965 Author Organization [facility] Care Team Providers Name Role Phone Unavailable Unavailable Unavailable Problems Condition Condition Condition Status Onset Resolution Last Treating Comments Name Details Category Date Date Treatment Clinician Date Infection Infection Diagnosis Active Madelaine of of 01-26 Ingrm amputation amputation [id number] stump, left stump, left lower lower extremity extremity Methicillin Methicillin Diagnosis Active Madelaine resis staph resis staph 01-26 Ingrm infct infct [id number] causing causing diseases diseases classd classd elswhr elswhr Type 2 Type 2 Diagnosis Active Madelaine diabetes diabetes 05-14 [facility] mellitus mellitus [id number] with with diabetic diabetic neuropathy, neuropathy, unsp unsp Essential Essential Diagnosis Active Madelaine (primary) (primary) 05-14 [facility] hypertensio hypertensio [id number] n n Chronic Chronic Diagnosis Active Madelaine obstructive obstructive 05-14 [facility] pulmonary pulmonary [id number] disease, disease, unspecified unspecified G47.33 G47.33 Diagnosis Active Madelaine 05-14 Ingrahm [id number] Pain frequent Pain Mgmt Resolve 2018-06-14 Darya pain d 01-26 14:43:00 (Tejas) 09:45: Analilia 00 [id number] Cardio edema Cardiovasc Resolve 2018-02-18 Darya ular d 01-26 13:35:00 (Tejas) 09:45: Analilia 00 [id number] Cardio knowledge/s Cardiovasc Resolve 2018-02-18 Darya kill ular d 01-26 13:35:00 (Tejas) deficit: pt 09:45: Analilia 00 [id number] Respiratory dyspnea Respirator Resolve 2018-04-24 Darya present y d 01-26 15:19:00 (Tejas) 09:45: Analilia 00 [id number] Respiratory CPAP Respirator Resolve 2018-04-24 Quality treatments y d 9-15 15:19:00 Realtime7 in home 09:45: 00 Endo/Sen diabetic Endo/Sen Resolve 2018-02-25 Darya foot care d 9-15 14:00:00 (Tejas) 09:45: Billingsley [id number] Integument surgical Integument Resolve 2018-03-25 Darya wound d 9-15 14:35:00 (Tejas) present 09:45: Billingsley [id number] Integument skin Integument Resolve 2018-03-25 Darya integrity d 9-15 14:35:00 (Tejas) risk 09:45: Billingsley [id number] Integument other wound Integument Resolve 2018-03-25 Quality present d 9-15 14:35:00 Realtime7 09:45: 00 Nutrition nutritional Nutrition Resolve 2018-03-15 Darya restriction d 9-15 15:24:00 (Tejas) s 09:45: Billingsley [id number] Elimination urinary Eliminatio Resolve 2018-03-01 Darya incontinenc n d 9-15 09:00:00 (Tejas) e 09:45: Billingsley 00 [id number] Neuro confusion Neuro/Emot Resolve 2018-11-11 Darya present ion d 9-15 14:00:00 (Tejas) 09:45: Billingsley 00 [id number] Neuro anxiety Neuro/Emot Resolve 2018-11-11 Darya present ion d 9-15 14:00:00 (Tejas) 09:45: Billingsley [id number] Activity ADL Activity Resolve 2018-11-11 Darya assistance d 9-15 14:00:00 (Tejas) required 09:45: Billingsley [id number] Safety sanitation Safety Resolve 2018-10-25 Darya hazards d 9-15 15:10:00 (Tejas) present 09:45: Billingsley [id number] Safety fall risk Safety Resolve 2018-10-25 Darya factor d 9-15 15:10:00 (Tejas) present 09:45: Billingsley [id number] Safety risk for Safety Resolve 2018-10-25 Darya hospitaliza d 9-15 15:10:00 (Tejas) tion 09:45: Billingsley 00 [id number] Safety can be left Safety Resolve 2018-11-11 Darya alone for d 9-15 14:00:00 (Tejas) only short 09:45: Billingsley periods 00 [id number] Medication oral med Meds Resolve 2018-03-15 Darya assistance d 9-15 15:24:00 (Tejas) required 09:45: Billingsley [id number] Medication knowledge/s Meds Resolve 2018-03-15 Darya kill d 9-15 15:24:00 (Tejas) deficit: pt 09:45: Billingsley [id number] Medication potential Meds Resolve 2018-03-15 Darya clinically d 9-15 15:24:00 (Tejas) significant 09:45: Billingsley medication [id number] issue Musculoskel transfer Musculoske Unknown Quality etal assistance letal 01-26 Realtime7 required 09:45: 00 Sensory impaired Sensory Resolve 2018-11-11 Quality verbal d 917 14:00:00 Realtime7 communicati 14:00: on 24 Endo/Sen glucose Endo/Sen Resolve 2018-02-25 Cherrise tolerance d 01-31 14:00:00 Olya problem 13:25: [id number] 00 Nutrition knowledge/s Nutrition Resolve 2018-03-15 Cherrise kill d 01-31 15:24:00 Olya deficit: pt 13:25: [id number] 00 Elimination urinary Eliminatio Resolve 2018-03-01 Cherrise urgency n d 01-31 09:00:00 Isabela 13:25: [id number] 00 Elimination urinary Eliminatio Resolve 2018-03-01 Cherrise frequency n d 01-31 09:00:00 Olya 13:25: [id number] 00 Neuro impaired Neuro/Emot Resolve 2018-11-11 Cherrise decision-ma ion d 01-31 14:00:00 Isabela wilver 13:25: [id number] 00 Musculoskel requires Musculoske Unknown Cherrise etal human letal 9-20 Isabela assist to 13:25: [id number] leave home 00 Cardio hypertensio Cardiovasc Resolve 2018-02-18 Cherrise n ular d 9-24 13:35:00 Isabela 13:05: [id number] 00 Musculoskel requires Musculoske Unknown 2017-05 Cherrise etal human letal 0-05 Isabela assist to 13:40: [id number] leave home 00 Cardio hypertensio Cardiovasc Resolve 2017-052018-03-25 Cherrise n ular d 0-12 14:35:00 Olya 12:45: [id number] 00 Respiratory smoker Respirator Resolve 2017-052018-04-24 Cherrise y d 0-12 15:19:00 Isabela 12:45: [id number] 00 Musculoskel transfer Musculoske Unknown 2017-05 Cherrise etal assistance letal 0-12 Isabela required 12:45: [id number] 00 Endo/Sen glucose Endo/Sen Resolve 2017-052018-03-22 Cherrise tolerance d 0-22 15:29:00 Isabela problem 13:50: [id number] 00 Elimination urinary Eliminatio Resolve 2017-052018-03-15 Cherrise incontinenc n d 0-22 15:24:00 Olya e 13:50: [id number] 00 Elimination urinary Eliminatio Resolve 2017-052018-03-15 Cherrise urgency n d 0-22 15:24:00 Olya 13:50: [id number] 00 Elimination urinary Eliminatio Resolve 2017-052018-03-15 Cherrise frequency n d 0-22 15:24:00 Isabela 13:50: [id number] 00 Endo/Sen glucose Endo/Sen Resolve 2017-052018-03-22 Cherrise testing d 0-29 15:29:00 Olya dependence 13:30: [id number] 00 Nutrition knowledge/s Nutrition Resolve 2017-052018-03-25 Cherrise kill d 1-05 14:35:00 Olya deficit: pt 11:30: [id number] 00 Elimination urinary Eliminatio Resolve 2017-052018-03-22 Cherrise frequency n d 1-05 15:29:00 Olya 11:30: [id number] 00 Pain frequent Pain Mgmt Resolve 2017-052018-06-14 Stephany pain d 05-25 14:43:00 [place] 14:35: h [id number] 00 Nutrition nutritional Nutrition Resolve 2017-052018-03-25 Stephany restriction d 05-25 14:35:00 [place] s 14:35: h [id number] 00 Elimination urinary Eliminatio Resolve 2017-052018-04-05 Stephany incontinenc n d 05-25 14:45:00 [place] e 14:35: h [id number] 00 Elimination urinary Eliminatio Resolve 2017-052018-04-05 Stephany frequency n d 05-25 14:45:00 [place] 14:35: h [id number] 00 Musculoskel requires Musculoske Unknown 2017-05 Stephany etal special letal 05-25 [facility] transportat 14:35: h [id number] ion 00 Cardio hypertensio Cardiovasc Resolve 2017-052018-04-12 Cherrise n ular d 05-27 13:46:00 Isabela 12:00: [id number] 00 Endo/Sen glucose Endo/Sen Resolve 2017-052018-04-05 Cherrise tolerance d 05-27 14:45:00 Olya problem 12:00: [id number] 00 Elimination urinary Eliminatio Resolve 2017-052018-04-05 Cherrise urgency n d 06-01 14:45:00 Isabela 12:45: [id number] 00 Elimination urinary Eliminatio Resolve 2017-052018-04-12 Cherrise urgency n d 06-08 13:46:00 Olya 10:55: [id number] 00 Elimination urinary Eliminatio Resolve 2017-052018-04-12 Cherrise frequency n d 06-08 13:46:00 Isabela 10:55: [id number] 00 Endo/Sen glucose Endo/Sen Resolve 2017-052018-04-24 Cherrise tolerance d 06-16 15:19:00 Isabela problem 12:20: [id number] 00 Elimination urinary Eliminatio Resolve 2017-052018-04-24 Cherrise frequency n d 06-16 15:19:00 Isabela 12:20: [id number] 00 Cardio hypertensio Cardiovasc Resolve 2017-052018-04-24 Cherrise n ular d 2- 15:19:00 Isabela 10:35: [id number] 00 Elimination urinary Eliminatio Resolve 2017-052018-04-24 Cherrise urgency n d 2 15:19:00 Olya 10:35: [id number] 00 Elimination urinary Eliminatio Resolve 2017-052018-04-24 Stephany incontinenc n d 06-25 15:19:00 [place] e 15:19: h [id number] 00 Cardio hypertensio Cardiovasc Resolve 2017-052018-06-07 Cherrise n ular d 2-14 13:31:00 Isabela 13:15: [id number] 00 Respiratory dyspnea Respirator Active 2017-05 Cherrise present y 06-27 Isabela 13:15: [id number] 00 Respiratory CPAP Respirator Active 2017-05 Cherrise treatments y 06-27 Olya in home 13:15: [id number] 00 Respiratory smoker Respirator Resolve 2017-052018-06-03 Cherrise y d 2-14 14:08:00 Isabela 13:15: [id number] 00 Elimination urinary Eliminatio Resolve 2017-052018-05-31 Cherrise urgency n d 2-14 14:21:00 Olya 13:15: [id number] 00 Elimination urinary Eliminatio Resolve 2017-052018-05-31 Cherrise frequency n d 2-14 14:21:00 Olya 13:15: [id number] 00 Elimination diarrhea Eliminatio Resolve 2017-052018-05-31 Cherrise n d 2-14 14:21:00 Isabela 13:15: [id number] 00 Endo/Sen glucose Endo/Sen Resolve 2017-052018-05-31 Cherrise tolerance d 2-24 14:21:00 Isabela problem 13:10: [id number] 00 Infection s/s of Infection Active Stephany infection 05-31 [facility] 14:21: h [id number] 00 Respiratory smoker Respirator Resolve 2018-09-13 Cherrise y d 06-05 13:20:00 Olya 13:35: [id number] 00 Endo/Sen glucose Endo/Sen Resolve 2018-06-21 Cherrise tolerance d 06-05 10:26:00 Isabela problem 13:35: [id number] 00 Elimination urinary Eliminatio Resolve 2018-06-14 Cherrise urgency n d 06-05 14:43:00 Isabela 13:35: [id number] 00 Elimination urinary Eliminatio Resolve 2018-06-14 Cherrise frequency n d 06-05 14:43:00 Isabela 13:35: [id number] 00 Cardio hypertensio Cardiovasc Resolve 2018-09-13 Cherrise n ular d 06-10 13:20:00 Olya 11:00: [id number] 00 Elimination urinary Eliminatio Resolve 2018-06-21 Cherrise urgency n d 06-19 10:26:00 Isabela 10:50: [id number] 00 Elimination urinary Eliminatio Resolve 2018-06-21 Stephany frequency n d 06-21 10:26:00 [place] 10:26: h [id number] 00 Endo/Sen glucose Endo/Sen Resolve 2018-06-28 Cherrise tolerance d 2- 14:32:00 Isabela problem 11:25: [id number] 00 Elimination urinary Eliminatio Resolve 2018-06-28 Cherrise urgency n d 2- 14:32:00 Olya 11:25: [id number] 00 Elimination urinary Eliminatio Resolve 2018-06-28 Cherrise frequency n d 2- 14:32:00 Isabela 11:50: [id number] 00 Endo/Sen glucose Endo/Sen Resolve 2018-07-12 Cherrise tolerance d 07-03 13:43:00 Isabela problem 11:50: [id number] 00 Elimination urinary Eliminatio Resolve 2018-07-12 Cherrise urgency n d 07-08 13:43:00 Isabela 12:30: [id number] 00 Neuro depressive Neuro/Emot Resolve 2018-11-11 Cherrise feelings ion d 2 14:00:00 Olya present 12:30: [id number] 00 Elimination urinary Eliminatio Resolve 2018-07-12 Cherrise frequency n d 2-27 13:43:00 Olya 10:45: [id number] 00 Elimination urinary Eliminatio Resolve 2018-07-24 Stephany frequency n d 3-06 12:48:00 [place] 11:53: h [id number] 00 Endo/Sen glucose Endo/Sen Resolve 2018-09-18 Cherrise tolerance d 3-11 10:59:00 Olya problem 10:15: [id number] 00 Elimination urinary Eliminatio Resolve 2018-07-24 Cherrise urgency n d 3-11 12:48:00 Olya 10:15: [id number] 00 Pain frequent Pain Mgmt Resolve 2018-07-24 Stephany pain d 3-13 12:48:00 [place] 12:48: h [id number] 00 Elimination urinary Eliminatio Resolve 2018-09-13 Cherrise urgency n d 3-15 13:20:00 Olya 12:40: [id number] 00 Musculoskel requires Musculoske Unknown Cherrise etal human letal 3-15 Olya assist to 12:40: [id number] leave home 00 Respiratory lung sounds Respirator Resolve 2018-09-13 Christel deficit y d - 13:20:00 Jeb 15:19: [id number] 00 Safety fire risk Safety Resolve 2018-10-25 Christel present d 3 15:10:00 Jeb 15:19: [id number] 00 Elimination urinary Eliminatio Resolve 2018-09-13 Cherrise frequency n d 4-08 13:20:00 Isabela 12:50: [id number] 00 Integument surgical Integument Active Cherrise wound 4-24 Olya present 11:45: [id number] 00 Integument skin Integument Active Cherrise integrity 4-24 Olya risk 11:45: [id number] 00 Integument other wound Integument Active Cherrise present 4- Isabela 11:45: [id number] 00 Nutrition knowledge/s Nutrition Active Cherrise kill 09-04 Isabela deficit: pt 11:45: [id number] 00 Nutrition nutritional Nutrition Active Cherrise restriction 09-04 Olya s 11:45: [id number] 00 Musculoskel transfer Musculoske Resolve 2018-10-25 Cherrise etal assistance letal d 09-04 15:10:00 Olya required 11:45: [id number] 00 Musculoskel requires Musculoske Resolve 2018-10-25 Cherrise etal human letal d 09-04 15:10:00 Olya assist to 11:45: [id number] leave home 00 Elimination constipatio Eliminatio Resolve 2018-09-13 Cherrise n n d 09-09 13:20:00 Isabela 14:10: [id number] 00 Pain frequent Pain Mgmt Resolve 2018-10-25 Madelaine [facility] d 08 [facility] [id number] 00 Respiratory smoker Respirator Resolve 2018-10-25 Cherrise y d - 15:10:00 Isabela 11:50: [id number] 00 Elimination urinary Eliminatio Resolve 2018-10-25 Cherrise urgency n d - 15:10:00 Olya 11:50: [id number] 00 Cardio hypertensio Cardiovasc Resolve 2018-11-11 Cherrise n ular d 10-09 14:00:00 Olya 11:20: [id number] 00 Endo/Sen glucose Endo/Sen Resolve 2018-10-25 Cherrise tolerance d 10-09 15:10:00 Isabela problem 11:20: [id number] 00 Elimination urinary Eliminatio Resolve 2018-10-25 Conchita frequency n d 10-16 15:10:00 Shimon, 14:00: [id number] 00 Cardio edema Cardiovasc Resolve 2018-11-11 Cherrise ular d 6- 14:00:00 Olya 11:00: [id number] 00 Safety risk for Safety Resolve 2018-11-01 Cnochita hospitaliza d 6-17 14:00:00 daniel Robins 14:30: [id number] 00 Respiratory smoker Respirator Resolve 2018-11-11 Cherrise y d 6-19 14:00:00 Olya 10:25: [id number] 00 Endo/Sen glucose Endo/Sen Resolve 2018-11-11 Cherrise tolerance d 6-19 14:00:00 Olya problem 10:25: [id number] 00 Elimination urinary Eliminatio Resolve 2018-11-11 Cherrise urgency n d 6-19 14:00:00 Olya 10:25: [id number] 00 Elimination urinary Eliminatio Resolve 2018-11-11 Cherrise frequency n d 6-19 14:00:00 Olya 10:25: [id number] 00 Musculoskel requires Musculoske Resolve 2018-12-23 Cherrise etal human letal d 6- 11:00:00 Olya assist to 10:25: [id number] leave home 00 Musculoskel requires Musculoske Resolve 2018-12-23 Kerry etal special letal d 6- 11:00:00 Maria Antonia transportat 18:30: [id number] ion 00 Safety fall risk Safety Resolve 2018-12-13 Cherrise factor d 7- 14:40:00 Isabela present 14:45: [id number] 00 Neuro impaired Neuro/Emot Resolve 2018-12-13 Madelaine mullen ion d 7- 14:40:00 Jose Angel pettit 14:00: [id number] 00 Safety risk for Safety Resolve 2018-12-13 Madelaine garciaiza d 7-10 14:40:00 Ingrahm tion 14:00: [id number] 00 Cardio edema Cardiovasc Resolve 2018-12-23 Cherrise ular d 7-15 11:00:00 Olya 11:00: [id number] 00 Respiratory smoker Respirator Resolve 2018-12-23 Cherrise y d 7-15 11:00:00 Isabela 11:00: [id number] 00 Endo/Sen glucose Endo/Sen Resolve 2019-01-01 Cherrise tolerance d 7-15 15:00:00 Isabela problem 11:00: [id number] 00 Elimination urinary Eliminatio Resolve 2018-12-13 Cherrise urgency n d 7-15 14:40:00 Olya 11:00: [id number] 00 Safety sanitation Safety Resolve 2018-12-13 Cherrise hazards d 7-15 14:40:00 Olya present 11:00: [id number] 00 Elimination urinary Eliminatio Resolve 2018-12-13 Cherrise frequency n d 7 14:40:00 Isabela 11:15: [id number] 00 Neuro depressive Neuro/Emot Resolve 2019-01-17 Cherrise feelings ion d 12-02 15:25:00 Olya present 11:15: [id number] 00 Cardio hypertensio Cardiovasc Resolve 2018-12-23 Cherrise n ular d 12-04 11:00:00 Isabela 14:40: [id number] 00 Musculoskel knowledge/s Musculoske Resolve 2018-12-23 Cherrise etal kill letal d 12-16 11:00:00 Olya deficit: cg 14:15: [id number] 00 Elimination urinary Eliminatio Resolve 2018-12-23 Cherrise urgency n d 12-20 11:00:00 Olya 10:10: [id number] 00 Neuro depressive Neuro/Emot Unknown Cherrise feelings ion 12-20 Isabela present 10:10: [id number] 00 Neuro impaired Neuro/Emot Resolve 2019-01-17 Cherrise decision-ma ion d 12-20 15:25:00 Olya wilver 10:10: [id number] 00 Safety risk for Safety Resolve 2018-12-23 Cherrise hospitaliza d 12-20 11:00:00 Isabela tion 10:10: [id number] 00 Sensory impaired Sensory Resolve 2019-01-17 Madelaine verbal d 12-23 15:25:00 Ingrahm communicati 11:00: [id number] 00 Cardio hypertensio Cardiovasc Resolve 2019-01-01 Cherrise n ular d 8-14 15:00:00 Isabela 12:00: [id number] 00 Respiratory smoker Respirator Resolve 2019-01-01 Cherrise y d 8-14 15:00:00 Olya 12:00: [id number] 00 Elimination urinary Eliminatio Resolve 2019-01-01 Cherrise urgency n d 8-14 15:00:00 Olya 12:00: [id number] 00 Neuro anxiety Neuro/Emot Resolve 2019-01-17 Cherrise present ion d 8 15:25:00 Isabela 12:00: [id number] 00 Safety risk for Safety Resolve 2019-01-01 Cherrise hospitaliza d 8 15:00:00 Isabela tion 12:00: [id number] 00 Musculoskel requires Musculoske Unknown Cherrise etal human letal 12-25 Isabela assist to 12:00: [id number] leave home 00 Respiratory smoker Respirator Resolve 2019-01-17 Cherrise y d 01-03 15:25:00 Olya 11:45: [id number] 00 Elimination urinary Eliminatio Resolve 2019-01-17 Cherrise urgency n d 01-03 15:25:00 Olya 11:45: [id number] 00 Safety fall risk Safety Resolve 2019-01-06 Cherrise factor d 01-03 12:25:00 Olya present 11:45: [id number] 00 Safety risk for Safety Resolve 2019-02-12 Cherrise hospitaliza d 01-03 15:15:00 Isabela tion 11:45: [id number] 00 Neuro memory Neuro/Emot Active Cherrise deficit ion 01-13 Isabela needing 11:20: [id number] supervision 00 Elimination urinary Eliminatio Resolve 2019-01-17 Madelaine incontinenc n d 01-17 15:25:00 Ingrahm e 15:25: [id number] 00 Safety fall risk Safety Resolve 2019-01-17 Desiree factor d 01-17 15:25:00 Rashid present 15:25: [id number] 00 Cardio hypertensio Cardiovasc Resolve 2019-01-24 Narciso aguilar ular d 01-20 09:00:00 Isabela 11:15: [id number] 00 Safety sanitation Safety Resolve 2019-02-12 Cherrise hazards d 01-20 15:15:00 Isabela present 11:15: [id number] 00 Respiratory smoker Respirator Resolve 2019-01-24 Madelaine y d 01-24 09:00:00 Ingrahm 09:00: [id number] 00 Musculoskel transfer Musculoske Active Cherrise etal assistance letal 01-29 Olya required 13:25: [id number] 00 Musculoskel requires Musculoske Active Cherrise etal human letal 01-29 Isabela assist to 13:25: [id number] leave home 00 Musculoskel requires Musculoske Active Cherrise etal special letal 01-29 Isabela transportat 13:25: [id number] ion 00 Respiratory smoker Respirator Resolve 2019-02-05 Cherrise y d 02-03 15:10:00 Isabela 10:00: [id number] 00 Elimination urinary Eliminatio Resolve 2019-02-12 Cherrise urgency n d 02-03 15:15:00 Isabela 10:00: [id number] 00 Safety fall risk Safety Resolve 2019-02-12 Cherrise factor d 9 15:15:00 Olya present 11:15: [id number] 00 Cardio hypertensio Cardiovasc Resolve 2018-052019-02-19 Narciso hernandez d 0-04 14:00:00 Isabela 11:50: [id number] 00 Respiratory smoker Respirator Resolve 2018-052019-02-19 Narciso y d 0-07 14:00:00 Isabela 11:30: [id number] 00 Safety risk for Safety Resolve 2018-052019-03-12 Madelaine navarrete d 0-09 15:00:00 Ingrahm tion 14:00: [id number] 00 Cardio hypertensio Cardiovasc Resolve 2018-052019-03-19 Cherrise n ular d 0-18 14:00:00 Isabela 12:30: [id number] 00 Respiratory smoker Respirator Resolve 2018-052019-03-12 Cherrise y d 0-18 15:00:00 Isabela 12:30: [id number] 00 Elimination urinary Eliminatio Resolve 2018-052019-03-12 Cherrise urgency n d 0-18 15:00:00 Olya 12:30: [id number] 00 Respiratory smoker Respirator Resolve 2018-052019-03-19 Cherrise y d 04 14:00:00 Olya 09:40: [id number] 00 Elimination urinary Eliminatio Resolve 2018-052019-03-19 Cherrise urgency n d 05-17 14:00:00 Olya 09:40: [id number] 00 Safety risk for Safety Active 2018-05 Cherrise hospitaliza 05-17 Isabela tion 09:40: [id number] 00 Safety fall risk Safety Active 2018-05 Madelaine factor 05-19 Ingrahm present 14:00: [id number] 00 Respiratory smoker Respirator Active 2018-05 Cherrise y 05-28 Isabela 10:55: [id number] 00 Elimination urinary Eliminatio Active 2018-05 Cherrise incontinenc n 05-28 Isabela e 10:55: [id number] 00 Elimination urinary Eliminatio Active 2018-05 Cherrise urgency n 05-28 Isabela 10:55: [id number] 00 Neuro depressive Neuro/Emot Active 2018-05 Cherrise feelings ion 05-28 Isabela present 10:55: [id number] 00 Neuro impaired Neuro/Emot Active 2018-05 Cherrise decision-ma ion 05-28 Isabela wilver 10:55: [id number] 00 Safety sanitation Safety Active 2018-05 Cherrise hazards 05-28 Isabela present 10:55: [id number] 00 Allergies, Adverse Reactions, Alerts Allergy Allergy Status Severity Reaction(s) Onset Inactive Treating Comments Name Type Date Date Clinician Unknown None Active Unknown None Unknown No Known Allergies For This Patient Medications Ordered Filled Start Stop Current Ordering Indication Dosage Frequency Signature Comments Components Medication Medication Date Date Medication? Clinician (SIG) Name Name oxyCODONE 5 oxyCODONE 5 2019- No Pachikara Unknown Unknown mg tablet mg tablet 01-26- ,Kyle atorvastati atorvastati No [place] Unknown Unknown n 20 mg n 20 mg -15 MD,[place] tablet tablet furosemide furosemide 2017- No [place] Unknown Unknown 20 mg 20 mg 01-26-15 MD,Kyle tablet tablet losartan losartan 2017- No [place] Unknown Unknown 100 mg 100 mg 01-26- MD,Kyle tablet tablet metFORMIN metFORMIN No [place] Unknown Unknown 1,000 mg 1,000 mg 15 MD,Kyle tablet tablet Dulera 200 Dulera 200 2018- No [place] Unknown Unknown mcg-5 mcg-5 01-26-16 Kyle COVARRUBIAS mcg/actuati mcg/actuati on HFA on HFA aerosol aerosol inhaler inhaler amLODIPine amLODIPine 2017- No [place] Unknown Unknown 10 mg 10 mg 01-26 MD,[place] tablet tablet lisinopril lisinopril 2017-05- No [place] Unknown Unknown 20 mg 20 mg 0-15 MD,[place] tablet tablet oxyCODONE 5 oxyCODONE 5 No Rafita Unknown Unknown mg tablet mg tablet 2-07 ,[place] lisinopril lisinopril 2018- No Rafita Unknown Unknown 20 mg 20 mg 06-28-20 ,[facility] tablet tablet lisinopril lisinopril No Rafita Unknown Unknown 30 mg 30 mg 2-15 MD,[facility] tablet tablet hydroCHLORO hydroCHLORO No Rafita Unknown Unknown thiazide 50 thiazide 50 6-15 MD,[facility] mg tablet mg tablet nystatin nystatin No [...] Observation Time Observation Value Comments SYSTOLIC mm[Hg] 2019-03-28 18:08:52 131 mm[Hg] mm[Hg] Method: Sit SYSTOLIC mm[Hg] 1840-05-13 00:00:00 127 mm[Hg] mm[Hg] Method: Lie DIASTOLIC mm[Hg] 2019-03-28 18:08:52 93 mm[Hg] mm[Hg] Method: Sit DIASTOLIC mm[Hg] 1840-05-13 00:00:00 83 mm[Hg] mm[Hg] Method: Lie PULSE 2019-03-28 18:08:52 81 /min /min RESP RATE 2019-03-28 18:08:52 16 /min /min TEMP 2019-03-28 18:08:52 97.4 [degF] Procedures This patient has no known procedures. Results This patient has no known results.
--- OUTSIDE RECORDS SUMMARY | 2019-05-09 12:30 | XMS REPORT ---
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 01-26 Ingrm infct infct [id number] causing causing diseases diseases classd classd elswhr elswhr Type 2 Type 2 Diagnosis Active Madelaine diabetes diabetes 05-14 [facility] mellitus mellitus [id number] with with diabetic diabetic neuropathy, neuropathy, unsp unsp Essential Essential Diagnosis Active Madelaine (primary) (primary) 05-14 [facility] hypertensio hypertensio [id number] n n Chronic Chronic Diagnosis Active Madelaine obstructive obstructive 05-14 [facility] pulmonary pulmonary [id number] disease, disease, unspecified unspecified G47.33 G47.33 Diagnosis Active Madelaine 05-14 Ingra[facility] [id number] Pain frequent Pain Mgmt Resolve 2018-06-14 Darya pain d 01-26 14:43:00 (Tejas) 09:45: Analilia 00 [id number] Cardio edema Cardiovasc Resolve 2018-02-18 Darya ular d 01-26 13:35:00 (Tejas) 09:45: Analilia 00 [id number] Cardio knowledge/s Cardiovasc Resolve 2018-02-18 Darya kill ular d 01-26 13:35:00 (Tejas) deficit: pt 09:45: Analilia 00 [id number] Respiratory dyspnea Respirator Resolve 2018-04-24 Darya present y d 01-26 15:19:00 (Tejas) 09:45: Analilia 00 [id number] Respiratory CPAP Respirator Resolve 2018-04-24 Quality treatments y d 9-15 15:19:00 Realtime7 in home 09:45: 00 Endo/Sen diabetic Endo/Sen Resolve 2018-02-25 Darya foot care d 9-15 14:00:00 (Tejsa) 09:45: Billingsley [id number] Integument surgical Integument Resolve 2018-03-25 Darya wound d 9-15 14:35:00 (Tejas) present 09:45: Billingsley [id number] Integument skin Integument Resolve 2018-03-25 Darya integrity d 9-15 14:35:00 (Tejas) risk 09:45: Billingsley [id number] Integument other wound Integument Resolve 2018-03-25 Quality present d 9-15 14:35:00 Realtime7 09:45: 00 Nutrition nutritional Nutrition Resolve 2018-03-15 Darya restriction d 9-15 15:24:00 (Tejas) s 09:45: Billingsley [id number] Elimination urinary Eliminatio Resolve 2018-03-01 Darya incontinenc n d 9-15 09:00:00 (Tejas) e 09:45: Billingsley 00 [id number] Neuro confusion Neuro/Emot Resolve 2018-11-11 Darya present ion d 9-15 14:00:00 (Tejas) 09:45: Billingsley 00 [id number] Neuro anxiety Neuro/Emot Resolve 2018-11-11 Darya present ion d 9-15 14:00:00 (Tejas) 09:45: Billingsley [id number] Activity ADL Activity Resolve 2018-11-11 Darya assistance d 9-15 14:00:00 (Tejas) required 09:45: Billingsley [id number] Safety sanitation Safety Resolve 2018-10-25 Darya hazards d 9-15 15:10:00 (Tejas) present 09:45: Billingsley [id number] Safety fall risk Safety Resolve 2018-10-25 Darya factor d 9-15 15:10:00 (Tejas) present 09:45: Billingsley [id number] Safety risk for Safety Resolve 2018-10-25 Darya hospitaliza d 9-15 15:10:00 (Tejas) tion 09:45: Billingsley 00 [id number] Safety can be left Safety Resolve 2018-11-11 Darya alone for d 9-15 14:00:00 (Tejas) only short 09:45: Billingsley periods 00 [id number] Medication oral med Meds Resolve 2018-03-15 Darya assistance d 9-15 15:24:00 (Tejas) required 09:45: Billingsley [id number] Medication knowledge/s Meds Resolve 2018-03-15 Darya kill d 9-15 15:24:00 (Tejas) deficit: pt 09:45: Billingsley [id number] Medication potential Meds Resolve 2018-03-15 Darya clinically d 9-15 15:24:00 (Tejas) significant 09:45: Billingsley medication [id number] issue Musculoskel transfer Musculoske Unknown Quality etal assistance letal 01-26 Realtime7 required 09:45: 00 Sensory impaired Sensory Resolve 2018-11-11 Quality verbal d 917 14:00:00 Realtime7 communicati 14:00: on 24 Endo/Sen glucose Endo/Sen Resolve 2018-02-25 Cherrise tolerance d 01-31 14:00:00 Olya problem 13:25: [id number] 00 Nutrition knowledge/s Nutrition Resolve 2018-03-15 Cherrise kill d 01-31 15:24:00 Olya deficit: pt 13:25: [id number] 00 Elimination urinary Eliminatio Resolve 2018-03-01 Cherrise urgency n d 01-31 09:00:00 [place] 13:25: [id number] 00 Elimination urinary Eliminatio Resolve 2018-03-01 Cherrise frequency n d 01-31 09:00:00 Olya 13:25: [id number] 00 Neuro impaired Neuro/Emot Resolve 2018-11-11 Cherrise decision-ma ion d 01-31 14:00:00 [place] wilver 13:25: [id number] 00 Musculoskel requires Musculoske Unknown Cherrise etal human letal 9-20 [place] assist to 13:25: [id number] leave home 00 Cardio hypertensio Cardiovasc Resolve 2018-02-18 Cherrise n ular d 9-24 13:35:00 [place] 13:05: [id number] 00 Musculoskel requires Musculoske Unknown 2017-05 Cherrise etal human letal 0-05 [place] assist to 13:40: [id number] leave home 00 Cardio hypertensio Cardiovasc Resolve 2017-052018-03-25 Cherrise n ular d 0-12 14:35:00 Olya 12:45: [id number] 00 Respiratory smoker Respirator Resolve 2017-052018-04-24 Cherrise y d 0-12 15:19:00 [place] 12:45: [id number] 00 Musculoskel transfer Musculoske Unknown 2017-05 Cherrise etal assistance letal 0-12 [place] required 12:45: [id number] 00 Endo/Sen glucose Endo/Sen Resolve 2017-052018-03-22 Cherrise tolerance d 0-22 15:29:00 [place] problem 13:50: [id number] 00 Elimination urinary Eliminatio Resolve 2017-052018-03-15 Cherrise incontinenc n d 0-22 15:24:00 Olya e 13:50: [id number] 00 Elimination urinary Eliminatio Resolve 2017-052018-03-15 Cherrise urgency n d 0-22 15:24:00 Olya 13:50: [id number] 00 Elimination urinary Eliminatio Resolve 2017-052018-03-15 Cherrise frequency n d 0-22 15:24:00 [place] 13:50: [id number] 00 Endo/Sen glucose Endo/Sen Resolve 2017-052018-03-22 Cherrise testing d 0-29 15:29:00 Olya dependence 13:30: [id number] 00 Nutrition knowledge/s Nutrition Resolve 2017-052018-03-25 Cherrise kill d 1-05 14:35:00 Olya deficit: pt 11:30: [id number] 00 Elimination urinary Eliminatio Resolve 2017-052018-03-22 Cherrise frequency n d 1-05 15:29:00 Olya 11:30: [id number] 00 Pain frequent Pain Mgmt Resolve 2017-052018-06-14 Stephany pain d 05-25 14:43:00 [place] 14:35: h [id number] 00 Nutrition nutritional Nutrition Resolve 2017-052018-03-25 Stephany restriction d 05-25 14:35:00 [place] 14:35: h [id number] 00 Elimination urinary Eliminatio Resolve 2017-052018-04-05 Stephany incontinenc n d 05-25 14:45:00 [place] e 14:35: h [id number] 00 Elimination urinary Eliminatio Resolve 2017-052018-04-05 Stephany frequency n d 05-25 14:45:00 [place] 14:35: h [id number] 00 Musculoskel requires Musculoske Unknown 2017-05 Stephany etal special letal 05-25 [facility] transportat 14:35: h [id number] ion 00 Cardio hypertensio Cardiovasc Resolve 2017-052018-04-12 Cherrise n ular d 05-27 13:46:00 [place] 12:00: [id number] 00 Endo/Sen glucose Endo/Sen Resolve 2017-052018-04-05 Cherrise tolerance d 05-27 14:45:00 Olya problem 12:00: [id number] 00 Elimination urinary Eliminatio Resolve 2017-052018-04-05 Cherrise urgency n d 06-01 14:45:00 [place] 12:45: [id number] 00 Elimination urinary Eliminatio Resolve 2017-052018-04-12 Cherrise urgency n d 06-08 13:46:00 Olya 10:55: [id number] 00 Elimination urinary Eliminatio Resolve 2017-052018-04-12 Cherrise frequency n d 06-08 13:46:00 [place] 10:55: [id number] 00 Endo/Sen glucose Endo/Sen Resolve 2017-052018-04-24 Cherrise tolerance d 06-16 15:19:00 [place] problem 12:20: [id number] 00 Elimination urinary Eliminatio Resolve 2017-052018-04-24 Cherrise frequency n d 06-16 15:19:00 [place] 12:20: [id number] 00 Cardio hypertensio Cardiovasc Resolve 2017-052018-04-24 Cherrise n ular d 2- 15:19:00 [place] 10:35: [id number] 00 Elimination urinary Eliminatio Resolve 2017-052018-04-24 Cherrise urgency n d 2 15:19:00 Olya 10:35: [id number] 00 Elimination urinary Eliminatio Resolve 2017-052018-04-24 Stephany incontinenc n d 06-25 15:19:00 [place] e 15:19: h [id number] 00 Cardio hypertensio Cardiovasc Resolve 2017-052018-06-07 Cherrise n ular d 2-14 13:31:00 [place] 13:15: [id number] 00 Respiratory dyspnea Respirator Active 2017-05 Cherrise present y 06-27 [place] 13:15: [id number] 00 Respiratory CPAP Respirator Active 2017-05 Cherrise treatments y 06-27 Olya in home 13:15: [id number] 00 Respiratory smoker Respirator Resolve 2017-052018-06-03 Cherrise y d 2-14 14:08:00 [place] 13:15: [id number] 00 Elimination urinary Eliminatio Resolve 2017-052018-05-31 Cherrise urgency n d 2-14 14:21:00 Olya 13:15: [id number] 00 Elimination urinary Eliminatio Resolve 2017-052018-05-31 Cherrise frequency n d 2-14 14:21:00 Olya 13:15: [id number] 00 Elimination diarrhea Eliminatio Resolve 2017-052018-05-31 Cherrise n d 2-14 14:21:00 [place] 13:15: [id number] 00 Endo/Sen glucose Endo/Sen Resolve 2017-052018-05-31 Cherrise tolerance d 2-24 14:21:00 [place] problem 13:10: [id number] 00 Infection s/s of Infection Active Stephany infection 05-31 [facility] 14:21: h [id number] 00 Respiratory smoker Respirator Resolve 2018-09-13 Cherrise y d 06-05 13:20:00 Olya 13:35: [id number] 00 Endo/Sen glucose Endo/Sen Resolve 2018-06-21 Cherrise tolerance d 06-05 10:26:00 [place] problem 13:35: [id number] 00 Elimination urinary Eliminatio Resolve 2018-06-14 Cherrise urgency n d 06-05 14:43:00 [place] 13:35: [id number] 00 Elimination urinary Eliminatio Resolve 2018-06-14 Cherrise frequency n d 06-05 14:43:00 [place] 13:35: [id number] 00 Cardio hypertensio Cardiovasc Resolve 2018-09-13 Cherrise n ular d 06-10 13:20:00 Olya 11:00: [id number] 00 Elimination urinary Eliminatio Resolve 2018-06-21 Cherrise urgency n d 06-19 10:26:00 [place] 10:50: [id number] 00 Elimination urinary Eliminatio Resolve 2018-06-21 Stephany frequency n d 06-21 10:26:00 [place] 10:26: h [id number] 00 Endo/Sen glucose Endo/Sen Resolve 2018-06-28 Cherrise tolerance d 2- 14:32:00 [place] problem 11:25: [id number] 00 Elimination urinary Eliminatio Resolve 2018-06-28 Cherrise urgency n d 2- 14:32:00 Olya 11:25: [id number] 00 Elimination urinary Eliminatio Resolve 2018-06-28 Cherrise frequency n d 2- 14:32:00 [place] 11:50: [id number] 00 Endo/Sen glucose Endo/Sen Resolve 2018-07-12 Cherrise tolerance d 07-03 13:43:00 [place] problem 11:50: [id number] 00 Elimination urinary Eliminatio Resolve 2018-07-12 Cherrise urgency n d 07-08 13:43:00 [place] 12:30: [id number] 00 Neuro depressive Neuro/Emot Resolve 2018-11-11 Cherrise feelings ion d 2 14:00:00 Olya present 12:30: [id number] 00 Elimination urinary Eliminatio Resolve 2018-07-12 Cherrise frequency n d 2-27 13:43:00 Olya 10:45: [id number] 00 Elimination urinary Eliminatio Resolve 2018-07-24 Stephany frequency n d 3-06 12:48:00 [place] 11:53: h [id number] 00 Endo/Sen glucose Endo/Sen Resolve 2018-09-18 Cherrise tolerance d 3-11 10:59:00 Olya problem 10:15: [id number] 00 Elimination urinary Eliminatio Resolve 2018-07-24 Cherrise urgency n d 3-11 12:48:00 Olya 10:15: [id number] 00 Pain frequent Pain Mgmt Resolve 2018-07-24 Stephany pain d 3-13 12:48:00 [place] 12:48: h [id number] 00 Elimination urinary Eliminatio Resolve 2018-09-13 Cherrise urgency n d 3-15 13:20:00 Olya 12:40: [id number] 00 Musculoskel requires Musculoske Unknown Cherrise etal human letal 3-15 Olya assist to 12:40: [id number] leave home 00 Respiratory lung sounds Respirator Resolve 2018-09-13 Christel deficit y d - 13:20:00 Jeb 15:19: [id number] 00 Safety fire risk Safety Resolve 2018-10-25 Christel present d 3 15:10:00 Jeb 15:19: [id number] 00 Elimination urinary Eliminatio Resolve 2018-09-13 Cherrise frequency n d 4-08 13:20:00 [place] 12:50: [id number] 00 Integument surgical Integument Active Cherrise wound 4-24 Olya present 11:45: [id number] 00 Integument skin Integument Active Cherrise integrity 4-24 Olya risk 11:45: [id number] 00 Integument other wound Integument Active Cherrise present 4- [place] 11:45: [id number] 00 Nutrition knowledge/s Nutrition Active Cherrise kill 09-04 [place] deficit: pt 11:45: [id number] 00 Nutrition nutritional Nutrition Active Cherrise restriction 09-04 Olya s 11:45: [id number] 00 Musculoskel transfer Musculoske Resolve 2018-10-25 Cherrise etal assistance letal d 09-04 15:10:00 Olya required 11:45: [id number] 00 Musculoskel requires Musculoske Resolve 2018-10-25 Cherrise etal human letal d 09-04 15:10:00 Olya assist to 11:45: [id number] leave home 00 Elimination constipatio Eliminatio Resolve 2018-09-13 Cherrise n n d 09-09 13:20:00 [place] 14:10: [id number] 00 Pain frequent Pain Mgmt Resolve 2018-10-25 Madelaine pain d [facility] [id number] 00 Respiratory smoker Respirator Resolve 2018-10-25 Cherrise y d - 15:10:00 [place] 11:50: [id number] 00 Elimination urinary Eliminatio Resolve 2018-10-25 Cherrise urgency n d - 15:10:00 Olya 11:50: [id number] 00 Cardio hypertensio Cardiovasc Resolve 2018-11-11 Cherrise n ular d 10-09 14:00:00 Olya 11:20: [id number] 00 Endo/Sen glucose Endo/Sen Resolve 2018-10-25 Cherrise tolerance d 10-09 15:10:00 [place] problem 11:20: [id number] 00 Elimination urinary Eliminatio Resolve 2018-10-25 Conchita frequency n d 10-16 15:10:00 Shimon, 14:00: [id number] 00 Cardio edema Cardiovasc Resolve 2018-11-11 Cherrise ular d 6- 14:00:00 Olya 11:00: [id number] 00 Safety risk for Safety Resolve 2018-11-01 Conchita hospitaliza d 6-17 14:00:00 daniel Robins 14:30: [id number] 00 Respiratory smoker Respirator Resolve 2018-11-11 Cherrise y d 6-19 14:00:00 Olya 10:25: [id number] 00 Endo/Sen glucose Endo/Sen Resolve 2018-11-11 Cherrise tolerance d 6-19 14:00:00 Olya problem 10:25: [id number] 00 Elimination urinary Eliminatio Resolve 2018-11-11 Cherrise urgency n d 6-19 14:00:00 Olya 10:25: [id number] 00 Elimination urinary Eliminatio Resolve 2018-11-11 Cherrise frequency n d 6-19 14:00:00 Olya 10:25: [id number] 00 Musculoskel requires Musculoske Resolve 2018-12-23 Cherrise etal human letal d 6- 11:00:00 Olya assist to 10:25: [id number] leave home 00 Musculoskel requires Musculoske Resolve 2018-12-23 Kerry etal special letal d 6- 11:00:00 Maria Antonia transportat 18:30: [id number] ion 00 Safety fall risk Safety Resolve 2018-12-13 Cherrise factor d 7- 14:40:00 [place] present 14:45: [id number] 00 Neuro impaired Neuro/Emot Resolve 2018-12-13 Madelaine mullen ion d 7- 14:40:00 Jose Angel pettit 14:00: [id number] 00 Safety risk for Safety Resolve 2018-12-13 Madelaine garciaiza d 7-10 14:40:00 Ingrahm tion 14:00: [id number] 00 Cardio edema Cardiovasc Resolve 2018-12-23 Cherrise ular d 7-15 11:00:00 Olya 11:00: [id number] 00 Respiratory smoker Respirator Resolve 2018-12-23 Cherrise y d 7-15 11:00:00 [place] 11:00: [id number] 00 Endo/Sen glucose Endo/Sen Resolve 2019-01-01 Cherrise tolerance d 7-15 15:00:00 [place] problem 11:00: [id number] 00 Elimination urinary Eliminatio Resolve 2018-12-13 Cherrise urgency n d 7-15 14:40:00 Olya 11:00: [id number] 00 Safety sanitation Safety Resolve 2018-12-13 Cherrise hazards d 7-15 14:40:00 Olya present 11:00: [id number] 00 Elimination urinary Eliminatio Resolve 2018-12-13 Cherrise frequency n d 7 14:40:00 [place] 11:15: [id number] 00 Neuro depressive Neuro/Emot Resolve 2019-01-17 Cherrise feelings ion d 12-02 15:25:00 Olya present 11:15: [id number] 00 Cardio hypertensio Cardiovasc Resolve 2018-12-23 Cherrise n ular d 12-04 11:00:00 [place] 14:40: [id number] 00 Musculoskel knowledge/s Musculoske Resolve 2018-12-23 Cherrise etal kill letal d 12-16 11:00:00 Olya deficit: cg 14:15: [id number] 00 Elimination urinary Eliminatio Resolve 2018-12-23 Cherrise urgency n d 12-20 11:00:00 Olya 10:10: [id number] 00 Neuro depressive Neuro/Emot Unknown Cherrise feelings ion 12-20 [place] present 10:10: [id number] 00 Neuro impaired Neuro/Emot Resolve 2019-01-17 Cherrise decision-ma ion d 12-20 15:25:00 Olya wilver 10:10: [id number] 00 Safety risk for Safety Resolve 2018-12-23 Cherrise hospitaliza d 12-20 11:00:00 [place] tion 10:10: [id number] 00 Sensory impaired Sensory Resolve 2019-01-17 Madelaine verbal d 12-23 15:25:00 Ingrahm communicati 11:00: [id number] 00 Cardio hypertensio Cardiovasc Resolve 2019-01-01 Cherrise n ular d 8-14 15:00:00 [place] 12:00: [id number] 00 Respiratory smoker Respirator Resolve 2019-01-01 Cherrise y d 8-14 15:00:00 Olya 12:00: [id number] 00 Elimination urinary Eliminatio Resolve 2019-01-01 Cherrise urgency n d 8-14 15:00:00 Olya 12:00: [id number] 00 Neuro anxiety Neuro/Emot Resolve 2019-01-17 Cherrise present ion d 8 15:25:00 [place] 12:00: [id number] 00 Safety risk for Safety Resolve 2019-01-01 Cherrise hospitaliza d 8 15:00:00 [place] tion 12:00: [id number] 00 Musculoskel requires Musculoske Unknown Cherrise etal human letal 12-25 [place] assist to 12:00: [id number] leave home 00 Respiratory smoker Respirator Resolve 2019-01-17 Cherrise y d 01-03 15:25:00 Olya 11:45: [id number] 00 Elimination urinary Eliminatio Resolve 2019-01-17 Cherrise urgency n d 01-03 15:25:00 Olya 11:45: [id number] 00 Safety fall risk Safety Resolve 2019-01-06 Cherrise factor d 01-03 12:25:00 Olya present 11:45: [id number] 00 Safety risk for Safety Resolve 2019-02-12 Cherrise hospitaliza d 01-03 15:15:00 [place] tion 11:45: [id number] 00 Neuro memory Neuro/Emot Active Cherrise deficit ion 01-13 [place] needing 11:20: [id number] supervision 00 Elimination urinary Eliminatio Resolve 2019-01-17 Madelaine incontinenc n d 01-17 15:25:00 Ingrahm e 15:25: [id number] 00 Safety fall risk Safety Resolve 2019-01-17 Desiree factor d 01-17 15:25:00 Rashid present 15:25: [id number] 00 Cardio hypertensio Cardiovasc Resolve 2019-01-24 Narciso aguilar ular d 01-20 09:00:00 [place] 11:15: [id number] 00 Safety sanitation Safety Resolve 2019-02-12 Cherrise hazards d 01-20 15:15:00 [place] present 11:15: [id number] 00 Respiratory smoker Respirator Resolve 2019-01-24 Madelaine y d 01-24 09:00:00 Ingrahm 09:00: [id number] 00 Musculoskel transfer Musculoske Active Cherrise etal assistance letal 01-29 Olya required 13:25: [id number] 00 Musculoskel requires Musculoske Active Cherrise etal human letal 01-29 [place] assist to 13:25: [id number] leave home 00 Musculoskel requires Musculoske Active Cherrise etal special letal 01-29 [place] transportat 13:25: [id number] ion 00 Respiratory smoker Respirator Resolve 2019-02-05 Cherrise y d 02-03 15:10:00 [place] 10:00: [id number] 00 Elimination urinary Eliminatio Resolve 2019-02-12 Cherrise urgency n d 02-03 15:15:00 [place] 10:00: [id number] 00 Safety fall risk Safety Resolve 2019-02-12 Cherrise factor d 9 15:15:00 Olya present 11:15: [id number] 00 Cardio hypertensio Cardiovasc Resolve 2018-052019-02-19 Narciso hernandez d 0-04 14:00:00 [place] 11:50: [id number] 00 Respiratory smoker Respirator Resolve 2018-052019-02-19 Narciso y d 0-07 14:00:00 [place] 11:30: [id number] 00 Safety risk for Safety Resolve 2018-052019-03-12 Madelaine navarrete d 0-09 15:00:00 Ingrahm tion 14:00: [id number] 00 Cardio hypertensio Cardiovasc Resolve 2018-052019-03-19 Cherrise n ular d 0-18 14:00:00 [place] 12:30: [id number] 00 Respiratory smoker Respirator Resolve 2018-052019-03-12 Cherrise y d 018 15:00:00 [place] 12:30: [id number] 00 Elimination urinary Eliminatio Resolve 2018-052019-03-12 Cherrise urgency n d 0-18 15:00:00 Olya 12:30: [id number] 00 Respiratory smoker Respirator Resolve 2018-052019-03-19 Cherrise y d 104 14:00:00 Olya 09:40: [id number] 00 Elimination urinary Eliminatio Resolve 2018-052019-03-19 Cherrise urgency n d 05-17 14:00:00 Olya 09:40: [id number] 00 Safety risk for Safety Active 2018-05 [facility] hospitaliza 05-17 [place] tion 09:40: [id number] 00 Safety fall risk Safety Active 2018-05 Madelaine factor 05-19 Ingrahm present 14:00: [id number] 00 Allergies, Adverse Reactions, Alerts Allergy Allergy [...] Unknown Unknown 100 mg 100 mg 01-26 ,[place] tablet tablet metFORMIN metFORMIN No [place] Unknown Unknown 1,000 mg 1,000 mg 01-26 ,Kyle tablet tablet Dulera 200 Dulera 200 2018- No [place] Unknown Unknown mcg-5 mcg-5 01-26-16 Kyle COVARRUBIAS mcg/actuati mcg/actuati on HFA on HFA aerosol aerosol inhaler inhaler amLODIPine amLODIPine 2017- No [place] Unknown Unknown 10 mg 10 mg 9-15 10-15 MD,[place] tablet tablet lisinopril lisinopril 2017-05- No [place] Unknown Unknown 20 mg 20 mg 0- 02-15 MD,[place] tablet tablet oxyCODONE 5 oxyCODONE 5 No [...] Observation Time Observation Value Comments SYSTOLIC mm[Hg] 2019-03-24 18:08:48 120 mm[Hg] mm[Hg] Method: Sit SYSTOLIC mm[Hg] 1840-05-13 00:00:00 127 mm[Hg] mm[Hg] Method: Lie DIASTOLIC mm[Hg] 2019-03-24 18:08:48 80 mm[Hg] mm[Hg] Method: Sit DIASTOLIC mm[Hg] 1840-05-13 00:00:00 83 mm[Hg] mm[Hg] Method: Lie PULSE 2019-03-24 18:08:48 96 /min /min RESP RATE 2019-03-24 18:08:48 16 /min /min TEMP 2019-03-24 18:08:48 97.7 [degF] Procedures This patient has no known procedures. Results This patient has no known results.
--- OUTSIDE RECORDS SUMMARY | 2019-05-09 12:30 | XMS REPORT ---
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-26 Ingrm infct infct [id number] causing causing diseases diseases classd classd elswhr elswhr Type 2 Type 2 Diagnosis Active Madelaine diabetes diabetes 05-14 [facility] mellitus mellitus [id number] with with diabetic diabetic neuropathy, neuropathy, unsp unsp Essential Essential Diagnosis Active Madelaine (primary) (primary) 05-14 [facility] hypertensio hypertensio [id number] n n Chronic Chronic Diagnosis Active Madelaine obstructive obstructive 05-14 [facility] pulmonary pulmonary [id number] disease, disease, unspecified unspecified G47.33 G47.33 Diagnosis Active Madelaine 05-14 [facility] [id number] Pain frequent Pain Mgmt Resolve 2018-06-14 Darya pain d 01-26 14:43:00 (Tejas) 09:45: Analilia 00 [id number] Cardio edema Cardiovasc Resolve 2018-02-18 Darya ular d 01-26 13:35:00 (Tejas) 09:45: Analilia 00 [id number] Cardio knowledge/s Cardiovasc Resolve 2018-02-18 Darya kill ular d 01-26 13:35:00 (Tejas) deficit: pt 09:45: Analilia 00 [id number] Respiratory dyspnea Respirator Resolve 2018-04-24 Darya present y d 01-26 15:19:00 (Tejas) 09:45: Analilia 00 [id number] Respiratory CPAP Respirator Resolve 2018-04-24 Quality treatments y d 9-15 15:19:00 Realtime7 in home 09:45: 00 Endo/Sen diabetic Endo/Sen Resolve 2018-02-25 Darya foot care d 9-15 14:00:00 (Tejas) 09:45: Billingsley [id number] Integument surgical Integument Resolve 2018-03-25 Darya wound d 9-15 14:35:00 (Tejas) present 09:45: Billingsley [id number] Integument skin Integument Resolve 2018-03-25 Darya integrity d 9-15 14:35:00 (Tejas) risk 09:45: Billingsley [id number] Integument other wound Integument Resolve 2018-03-25 Quality present d 9-15 14:35:00 Realtime7 09:45: 00 Nutrition nutritional Nutrition Resolve 2018-03-15 Darya restriction d 9-15 15:24:00 (Tejas) s 09:45: Billingsley [id number] Elimination urinary Eliminatio Resolve 2018-03-01 Darya incontinenc n d 9-15 09:00:00 (Tejas) e 09:45: Billingsley 00 [id number] Neuro confusion Neuro/Emot Resolve 2018-11-11 Darya present ion d 9-15 14:00:00 (Tejas) 09:45: Billingsley 00 [id number] Neuro anxiety Neuro/Emot Resolve 2018-11-11 Darya present ion d 9-15 14:00:00 (Tejas) 09:45: Billingsley [id number] Activity ADL Activity Resolve 2018-11-11 Darya assistance d 9-15 14:00:00 (Tejas) required 09:45: Billingsley [id number] Safety sanitation Safety Resolve 2018-10-25 Darya hazards d 9-15 15:10:00 (Tejas) present 09:45: Billingsley [id number] Safety fall risk Safety Resolve 2018-10-25 Darya factor d 9-15 15:10:00 (Tejas) present 09:45: Billingsley [id number] Safety risk for Safety Resolve 2018-10-25 Darya hospitaliza d 9-15 15:10:00 (Tejas) tion 09:45: Billingsley 00 [id number] Safety can be left Safety Resolve 2018-11-11 Darya alone for d 9-15 14:00:00 (Tejas) only short 09:45: Billingsley periods 00 [id number] Medication oral med Meds Resolve 2018-03-15 Darya assistance d 9-15 15:24:00 (Tejas) required 09:45: Bill[place]ley [id number] Medication knowledge/s Meds Resolve 2018-03-15 Darya kill d 9-15 15:24:00 (Tejas) deficit: pt 09:45: Bill[place]ley [id number] Medication potential Meds Resolve 2018-03-15 Darya clinically d 9-15 15:24:00 (Tejas) significant 09:45: Billingsley medication [id number] issue Musculoskel transfer Musculoske Unknown Quality etal assistance letal 01-26 Realtime7 required 09:45: 00 Sensory impaired Sensory Resolve 2018-11-11 Quality verbal d 917 14:00:00 Realtime7 communicati 14:00: on 24 Endo/Sen glucose Endo/Sen Resolve 2018-02-25 Cherrise tolerance d 01-31 14:00:00 Olya problem 13:25: [id number] 00 Nutrition knowledge/s Nutrition Resolve 2018-03-15 Cherrise kill d 01-31 15:24:00 Olya deficit: pt 13:25: [id number] 00 Elimination urinary Eliminatio Resolve 2018-03-01 Cherrise urgency n d 01-31 09:00:00 [place] 13:25: [id number] 00 Elimination urinary Eliminatio Resolve 2018-03-01 Cherrise frequency n d 01-31 09:00:00 Olya 13:25: [id number] 00 Neuro impaired Neuro/Emot Resolve 2018-11-11 Cherrise decision-ma ion d 01-31 14:00:00 [place] wilver 13:25: [id number] 00 Musculoskel requires Musculoske Unknown Cherrise etal human letal 9-20 [place] assist to 13:25: [id number] leave home 00 Cardio hypertensio Cardiovasc Resolve 2018-02-18 Cherrise n ular d 9-24 13:35:00 [place] 13:05: [id number] 00 Musculoskel requires Musculoske Unknown 2017-05 Cherrise etal human letal 0-05 [place] assist to 13:40: [id number] leave home 00 Cardio hypertensio Cardiovasc Resolve 2017-052018-03-25 Cherrise n ular d 0-12 14:35:00 Olya 12:45: [id number] 00 Respiratory smoker Respirator Resolve 2017-052018-04-24 Cherrise y d 0-12 15:19:00 [place] 12:45: [id number] 00 Musculoskel transfer Musculoske Unknown 2017-05 Cherrise etal assistance letal 0-12 [place] required 12:45: [id number] 00 Endo/Sen glucose Endo/Sen Resolve 2017-052018-03-22 Cherrise tolerance d 0-22 15:29:00 [place] problem 13:50: [id number] 00 Elimination urinary Eliminatio Resolve 2017-052018-03-15 Cherrise incontinenc n d 0-22 15:24:00 Olya e 13:50: [id number] 00 Elimination urinary Eliminatio Resolve 2017-052018-03-15 Cherrise urgency n d 0-22 15:24:00 Olya 13:50: [id number] 00 Elimination urinary Eliminatio Resolve 2017-052018-03-15 Cherrise frequency n d 0-22 15:24:00 [place] 13:50: [id number] 00 Endo/Sen glucose Endo/Sen Resolve 2017-052018-03-22 Cherrise testing d 0-29 15:29:00 Olya dependence 13:30: [id number] 00 Nutrition knowledge/s Nutrition Resolve 2017-052018-03-25 Cherrise kill d 1-05 14:35:00 Olya deficit: pt 11:30: [id number] 00 Elimination urinary Eliminatio Resolve 2017-052018-03-22 Cherrise frequency n d 1-05 15:29:00 Olya 11:30: [id number] 00 Pain frequent Pain Mgmt Resolve 2017-052018-06-14 Stephany pain d 05-25 14:43:00 [facility] 14:35: h [id number] 00 Nutrition nutritional Nutrition Resolve 2017-052018-03-25 Stephany restriction d 05-25 14:35:00 [facility] s 14:35: h [id number] 00 Elimination urinary Eliminatio Resolve 2017-052018-04-05 Stephany incontinenc n d 05-25 14:45:00 [facility] e 14:35: h [id number] 00 Elimination urinary Eliminatio Resolve 2017-052018-04-05 Stephany frequency n d 05-25 14:45:00 [facility] 14:35: h [id number] 00 Musculoskel requires Musculoske Unknown 2017-05 Stephany etal special letal 05-25 [facility] transportat 14:35: h [id number] ion 00 Cardio hypertensio Cardiovasc Resolve 2017-052018-04-12 Cherrise n ular d 05-27 13:46:00 [place] 12:00: [id number] 00 Endo/Sen glucose Endo/Sen Resolve 2017-052018-04-05 Cherrise tolerance d 05-27 14:45:00 Olya problem 12:00: [id number] 00 Elimination urinary Eliminatio Resolve 2017-052018-04-05 Cherrise urgency n d 06-01 14:45:00 [place] 12:45: [id number] 00 Elimination urinary Eliminatio Resolve 2017-052018-04-12 Cherrise urgency n d 06-08 13:46:00 Olya 10:55: [id number] 00 Elimination urinary Eliminatio Resolve 2017-052018-04-12 Cherrise frequency n d 06-08 13:46:00 [place] 10:55: [id number] 00 Endo/Sen glucose Endo/Sen Resolve 2017-052018-04-24 Cherrise tolerance d 06-16 15:19:00 [place] problem 12:20: [id number] 00 Elimination urinary Eliminatio Resolve 2017-052018-04-24 Cherrise frequency n d 06-16 15:19:00 [place] 12:20: [id number] 00 Cardio hypertensio Cardiovasc Resolve 2017-052018-04-24 Cherrise n ular d 2- 15:19:00 [place] 10:35: [id number] 00 Elimination urinary Eliminatio Resolve 2017-052018-04-24 Cherrise urgency n d 2 15:19:00 Olya 10:35: [id number] 00 Elimination urinary Eliminatio Resolve 2017-052018-04-24 Stephany incontinenc n d 06-25 15:19:00 [facility] e 15:19: h [id number] 00 Cardio hypertensio Cardiovasc Resolve 2017-052018-06-07 Cherrise n ular d 2-14 13:31:00 [place] 13:15: [id number] 00 Respiratory dyspnea Respirator Active 2017-05 Cherrise present y 06-27 [place] 13:15: [id number] 00 Respiratory CPAP Respirator Active 2017-05 Cherrise treatments y 06-27 Olya in home 13:15: [id number] 00 Respiratory smoker Respirator Resolve 2017-052018-06-03 Cherrise y d 2-14 14:08:00 [place] 13:15: [id number] 00 Elimination urinary Eliminatio Resolve 2017-052018-05-31 Cherrise urgency n d 2-14 14:21:00 Olya 13:15: [id number] 00 Elimination urinary Eliminatio Resolve 2017-052018-05-31 Cherrise frequency n d 2-14 14:21:00 Olya 13:15: [id number] 00 Elimination diarrhea Eliminatio Resolve 2017-052018-05-31 Cherrise n d 2-14 14:21:00 [place] 13:15: [id number] 00 Endo/Sen glucose Endo/Sen Resolve 2017-052018-05-31 Cherrise tolerance d 2-24 14:21:00 [place] problem 13:10: [id number] 00 Infection s/s of Infection Active Stephany infection 05-31 [facility] 14:21: h [id number] 00 Respiratory smoker Respirator Resolve 2018-09-13 Cherrise y d 06-05 13:20:00 Olya 13:35: [id number] 00 Endo/Sen glucose Endo/Sen Resolve 2018-06-21 Cherrise tolerance d 06-05 10:26:00 [place] problem 13:35: [id number] 00 Elimination urinary Eliminatio Resolve 2018-06-14 Cherrise urgency n d 06-05 14:43:00 [place] 13:35: [id number] 00 Elimination urinary Eliminatio Resolve 2018-06-14 Cherrise frequency n d 06-05 14:43:00 [place] 13:35: [id number] 00 Cardio hypertensio Cardiovasc Resolve 2018-09-13 Cherrise n ular d 06-10 13:20:00 Olya 11:00: [id number] 00 Elimination urinary Eliminatio Resolve 2018-06-21 Cherrise urgency n d 06-19 10:26:00 [place] 10:50: [id number] 00 Elimination urinary Eliminatio Resolve 2018-06-21 Stephany frequency n d 06-21 10:26:00 [facility] 10:26: h [id number] 00 Endo/Sen glucose Endo/Sen Resolve 2018-06-28 Cherrise tolerance d 2- 14:32:00 [place] problem 11:25: [id number] 00 Elimination urinary Eliminatio Resolve 2018-06-28 Cherrise urgency n d 2- 14:32:00 Olya 11:25: [id number] 00 Elimination urinary Eliminatio Resolve 2018-06-28 Cherrise frequency n d 2- 14:32:00 [place] 11:50: [id number] 00 Endo/Sen glucose Endo/Sen Resolve 2018-07-12 Cherrise tolerance d 07-03 13:43:00 [place] problem 11:50: [id number] 00 Elimination urinary Eliminatio Resolve 2018-07-12 Cherrise urgency n d 07-08 13:43:00 [place] 12:30: [id number] 00 Neuro depressive Neuro/Emot Resolve 2018-11-11 Cherrise feelings ion d 2 14:00:00 Olya present 12:30: [id number] 00 Elimination urinary Eliminatio Resolve 2018-07-12 Cherrise frequency n d 2-27 13:43:00 Olya 10:45: [id number] 00 Elimination urinary Eliminatio Resolve 2018-07-24 Stephany frequency n d 3-06 12:48:00 [place] 11:53: h [id number] 00 Endo/Sen glucose Endo/Sen Resolve 2018-09-18 Cherrise tolerance d 3-11 10:59:00 Olya problem 10:15: [id number] 00 Elimination urinary Eliminatio Resolve 2018-07-24 Cherrise urgency n d 3-11 12:48:00 Olya 10:15: [id number] 00 Pain frequent Pain Mgmt Resolve 2018-07-24 Stephany pain d 3-13 12:48:00 [facility] 12:48: h [id number] 00 Elimination urinary Eliminatio Resolve 2018-09-13 Cherrise urgency n d 3-15 13:20:00 Olya 12:40: [id number] 00 Musculoskel requires Musculoske Unknown Cherrise etal human letal 3-15 Olya assist to 12:40: [id number] leave home 00 Respiratory lung sounds Respirator Resolve 2018-09-13 Christel deficit y d - 13:20:00 Jeb 15:19: [id number] 00 Safety fire risk Safety Resolve 2018-10-25 Christel present d 3 15:10:00 Jeb 15:19: [id number] 00 Elimination urinary Eliminatio Resolve 2018-09-13 Cherrise frequency n d 4-08 13:20:00 [place] 12:50: [id number] 00 Integument surgical Integument Active Cherrise wound 4-24 Olya present 11:45: [id number] 00 Integument skin Integument Active Cherrise integrity 4-24 Olya risk 11:45: [id number] 00 Integument other wound Integument Active Cherrise present 4- [place] 11:45: [id number] 00 Nutrition knowledge/s Nutrition Active Cherrise kill 09-04 [place] deficit: pt 11:45: [id number] 00 Nutrition nutritional Nutrition Active Cherrise restriction 09-04 Olya s 11:45: [id number] 00 Musculoskel transfer Musculoske Resolve 2018-10-25 Cherrise etal assistance letal d 09-04 15:10:00 Olya required 11:45: [id number] 00 Musculoskel requires Musculoske Resolve 2018-10-25 Cherrise etal human letal d 09-04 15:10:00 Olya assist to 11:45: [id number] leave home 00 Elimination constipatio Eliminatio Resolve 2018-09-13 Cherrise n n d 09-09 13:20:00 [place] 14:10: [id number] 00 Pain frequent Pain Mgmt Resolve 2018-10-25 Madelaine pain d 08 15:10:00 [facility] [id number] 00 Respiratory smoker Respirator Resolve 2018-10-25 Cherrise y d - 15:10:00 [place] 11:50: [id number] 00 Elimination urinary Eliminatio Resolve 2018-10-25 Cherrise urgency n d - 15:10:00 Olya 11:50: [id number] 00 Cardio hypertensio Cardiovasc Resolve 2018-11-11 Cherrise n ular d 10-09 14:00:00 Olya 11:20: [id number] 00 Endo/Sen glucose Endo/Sen Resolve 2018-10-25 Cherrise tolerance d 10-09 15:10:00 [place] problem 11:20: [id number] 00 Elimination urinary Eliminatio Resolve 2018-10-25 Conchita frequency n d 10-16 15:10:00 Shimon, 14:00: [id number] 00 Cardio edema Cardiovasc Resolve 2018-11-11 Cherrise ular d 6- 14:00:00 Olya 11:00: [id number] 00 Safety risk for Safety Resolve 2018-11-01 Conchita hospitaliza d 6-17 14:00:00 daniel Robins 14:30: [id number] 00 Respiratory smoker Respirator Resolve 2018-11-11 Cherrise y d 6-19 14:00:00 Olya 10:25: [id number] 00 Endo/Sen glucose Endo/Sen Resolve 2018-11-11 Cherrise tolerance d 6-19 14:00:00 Olya problem 10:25: [id number] 00 Elimination urinary Eliminatio Resolve 2018-11-11 Cherrise urgency n d 6-19 14:00:00 Olya 10:25: [id number] 00 Elimination urinary Eliminatio Resolve 2018-11-11 Cherrise frequency n d 6-19 14:00:00 Olya 10:25: [id number] 00 Musculoskel requires Musculoske Resolve 2018-12-23 Cherrise etal human letal d 6- 11:00:00 Olya assist to 10:25: [id number] leave home 00 Musculoskel requires Musculoske Resolve 2018-12-23 Kerry etal special letal d 6- 11:00:00 Maria Antonia transportat 18:30: [id number] ion 00 Safety fall risk Safety Resolve 2018-12-13 Cherrise factor d 7- 14:40:00 [place] present 14:45: [id number] 00 Neuro impaired Neuro/Emot Resolve 2018-12-13 Madelaine mullen ion d 7- 14:40:00 Jose Angel pettit 14:00: [id number] 00 Safety risk for Safety Resolve 2018-12-13 Madelaine garciaiza d 7-10 14:40:00 Ingrahm tion 14:00: [id number] 00 Cardio edema Cardiovasc Resolve 2018-12-23 Cherrise ular d 7-15 11:00:00 Olya 11:00: [id number] 00 Respiratory smoker Respirator Resolve 2018-12-23 Cherrise y d 7-15 11:00:00 [place] 11:00: [id number] 00 Endo/Sen glucose Endo/Sen Resolve 2019-01-01 Cherrise tolerance d 7-15 15:00:00 [place] problem 11:00: [id number] 00 Elimination urinary Eliminatio Resolve 2018-12-13 Cherrise urgency n d 7-15 14:40:00 Olya 11:00: [id number] 00 Safety sanitation Safety Resolve 2018-12-13 Cherrise hazards d 7-15 14:40:00 Olya present 11:00: [id number] 00 Elimination urinary Eliminatio Resolve 2018-12-13 Cherrise frequency n d 7 14:40:00 [place] 11:15: [id number] 00 Neuro depressive Neuro/Emot Resolve 2019-01-17 Cherrise feelings ion d 12-02 15:25:00 Olya present 11:15: [id number] 00 Cardio hypertensio Cardiovasc Resolve 2018-12-23 Cherrise n ular d 12-04 11:00:00 [place] 14:40: [id number] 00 Musculoskel knowledge/s Musculoske Resolve 2018-12-23 Cherrise etal kill letal d 12-16 11:00:00 Olya deficit: cg 14:15: [id number] 00 Elimination urinary Eliminatio Resolve 2018-12-23 Cherrise urgency n d 12-20 11:00:00 Olya 10:10: [id number] 00 Neuro depressive Neuro/Emot Unknown Cherrise feelings ion 12-20 [place] present 10:10: [id number] 00 Neuro impaired Neuro/Emot Resolve 2019-01-17 Cherrise decision-ma ion d 12-20 15:25:00 Olya wilver 10:10: [id number] 00 Safety risk for Safety Resolve 2018-12-23 Cherrise hospitaliza d 12-20 11:00:00 [place] tion 10:10: [id number] 00 Sensory impaired Sensory Resolve 2019-01-17 Madelaine verbal d 12-23 15:25:00 Ingrahm communicati 11:00: [id number] on 00 Cardio hypertensio Cardiovasc Resolve 2019-01-01 Cherrise n ular d 8-14 15:00:00 [place] 12:00: [id number] 00 Respiratory smoker Respirator Resolve 2019-01-01 Cherrise y d 8-14 15:00:00 Olya 12:00: [id number] 00 Elimination urinary Eliminatio Resolve 2019-01-01 Cherrise urgency n d 8-14 15:00:00 Olya 12:00: [id number] 00 Neuro anxiety Neuro/Emot Resolve 2019-01-17 Cherrise present ion d 8 15:25:00 [place] 12:00: [id number] 00 Safety risk for Safety Resolve 2019-01-01 Cherrise hospitaliza d 8 15:00:00 [place] tion 12:00: [id number] 00 Musculoskel requires Musculoske Unknown Cherrise etal human letal 12-25 [place] assist to 12:00: [id number] leave home 00 Respiratory smoker Respirator Resolve 2019-01-17 Cherrise y d 01-03 15:25:00 Olya 11:45: [id number] 00 Elimination urinary Eliminatio Resolve 2019-01-17 Cherrise urgency n d 01-03 15:25:00 Olya 11:45: [id number] 00 Safety fall risk Safety Resolve 2019-01-06 Cherrise factor d 01-03 12:25:00 Olya present 11:45: [id number] 00 Safety risk for Safety Resolve 2019-02-12 Cherrise hospitaliza d 01-03 15:15:00 [place] tion 11:45: [id number] 00 Neuro memory Neuro/Emot Active Cherrise deficit ion 01-13 [place] needing 11:20: [id number] supervision 00 Elimination urinary Eliminatio Resolve 2019-01-17 Madelaine incontinenc n d 01-17 15:25:00 Ingrahm e 15:25: [id number] 00 Safety fall risk Safety Resolve 2019-01-17 Desiree factor d 01-17 15:25:00 Rashid present 15:25: [id number] 00 Cardio hypertensio Cardiovasc Resolve 2019-01-24 Narciso aguilar ular d 01-20 09:00:00 [place] 11:15: [id number] 00 Safety sanitation Safety Resolve 2019-02-12 Cherrise hazards d 01-20 15:15:00 [place] present 11:15: [id number] 00 Respiratory smoker Respirator Resolve 2019-01-24 Madelaine y d 01-24 09:00:00 Ingrahm 09:00: [id number] 00 Musculoskel transfer Musculoske Active Cherrise etal assistance letal 01-29 Olya required 13:25: [id number] 00 Musculoskel requires Musculoske Active Cherrise etal human letal 01-29 [place] assist to 13:25: [id number] leave home 00 Musculoskel requires Musculoske Active Cherrise etal special letal 01-29 [place] transportat 13:25: [id number] ion 00 Respiratory smoker Respirator Resolve 2019-02-05 Cherrise y d 02-03 15:10:00 [place] 10:00: [id number] 00 Elimination urinary Eliminatio Resolve 2019-02-12 Cherrise urgency n d 02-03 15:15:00 [place] 10:00: [id number] 00 Safety fall risk Safety Resolve 2019-02-12 Cherrise factor d 9 15:15:00 Olya present 11:15: [id number] 00 Cardio hypertensio Cardiovasc Resolve 2018-052019-02-19 Narciso hernandez d 0-04 14:00:00 [place] 11:50: [id number] 00 Respiratory smoker Respirator Resolve 2018-052019-02-19 Narciso y d 0-07 14:00:00 [place] 11:30: [id number] 00 Safety risk for Safety Resolve 2018-052019-03-12 Madelaine navarrete d 0-09 15:00:00 Ingrahm tion 14:00: [id number] 00 Cardio hypertensio Cardiovasc Resolve 2018-052019-03-19 Cherrise n ular d 0-18 14:00:00 [place] 12:30: [id number] 00 Respiratory smoker Respirator Resolve 2018-052019-03-12 Cherrise y d 018 15:00:00 [place] 12:30: [id number] 00 Elimination urinary Eliminatio Resolve 2018-052019-03-12 Cherrise urgency n d 0-18 15:00:00 Olya 12:30: [id number] 00 Respiratory smoker Respirator Resolve 2018-052019-03-19 Cherrise y d 104 14:00:00 Olya 09:40: [id number] 00 Elimination urinary Eliminatio Resolve 2018-052019-03-19 Cherrise urgency n d 05-17 14:00:00 Olya 09:40: [id number] 00 Safety risk for Safety Active 2018-05 Cherrise hospitaliza 05-17 [place] tion 09:40: [id number] 00 Safety fall risk Safety Active 2018-05 Madelaine factor 05-19 Ingrahm present 14:00: [id number] 00 Allergies, Adverse Reactions, Alerts Allergy Allergy [...] Unknown Unknown 100 mg 100 mg 01-26 ,[place] tablet tablet metFORMIN metFORMIN No [place] Unknown Unknown 1,000 mg 1,000 mg 01-26 ,[place] tablet tablet Dulera 200 Dulera 200 2018- No [place] Unknown Unknown mcg-5 mcg-5 01-26-16 [place] COVARRUBIAS mcg/actuati mcg/actuati on HFA on HFA aerosol aerosol inhaler inhaler amLODIPine amLODIPine 2017- No [place] Unknown Unknown 10 mg 10 mg 9-15 10-15 MD,[place] tablet tablet lisinopril lisinopril 2017-05- No [place] Unknown Unknown 20 mg 20 mg 0- 02-15 MD,[place] tablet tablet oxyCODONE 5 oxyCODONE 5 No [...]
--- OUTSIDE RECORDS SUMMARY | 2019-05-09 12:30 | XMS REPORT ---
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 [id number] causing causing diseases diseases classd classd elswhr elswhr Type 2 Type 2 Diagnosis Active Madelaine diabetes diabetes 05-14 [facility] mellitus mellitus [id number] with with diabetic diabetic neuropathy, neuropathy, unsp unsp Essential Essential Diagnosis Active Madelaine (primary) (primary) 05-14 [facility] hypertensio hypertensio [id number] n n Chronic Chronic Diagnosis Active Madelaine obstructive obstructive 05-14 [facility] pulmonary pulmonary [id number] disease, disease, unspecified unspecified G47.33 G47.33 Diagnosis Active Madelaine 05-14 Ingrahm [id number] Pain frequent Pain Mgmt Resolve 2018-06-14 Darya pain d 01-26 14:43:00 (Tejas) 09:45: Analilia 00 [id number] Cardio edema Cardiovasc Resolve 2018-02-18 Darya ular d 01-26 13:35:00 (Tejas) 09:45: Analilia 00 [id number] Cardio knowledge/s Cardiovasc Resolve 2018-02-18 Darya kill ular d 01-26 13:35:00 (Tejas) deficit: pt 09:45: Analilia 00 [id number] Respiratory dyspnea Respirator Resolve 2018-04-24 Darya present y d 01-26 15:19:00 (Tejas) 09:45: Analilia 00 [id number] Respiratory CPAP Respirator Resolve 2018-04-24 Quality treatments y d 9-15 15:19:00 Realtime7 in home 09:45: 00 Endo/Sen diabetic Endo/Sen Resolve 2018-02-25 Darya foot care d 9-15 14:00:00 (Tejas) 09:45: Billingsley [id number] Integument surgical Integument Resolve 2018-03-25 Darya wound d 9-15 14:35:00 (Tejas) present 09:45: Billingsley [id number] Integument skin Integument Resolve 2018-03-25 Darya integrity d 9-15 14:35:00 (Tejas) risk 09:45: Billingsley [id number] Integument other wound Integument Resolve 2018-03-25 Quality present d 9-15 14:35:00 Realtime7 09:45: 00 Nutrition nutritional Nutrition Resolve 2018-03-15 Darya restriction d 9-15 15:24:00 (Tejas) s 09:45: Billingsley [id number] Elimination urinary Eliminatio Resolve 2018-03-01 Darya incontinenc n d 9-15 09:00:00 (Tejas) e 09:45: Billingsley 00 [id number] Neuro confusion Neuro/Emot Resolve 2018-11-11 Darya present ion d 9-15 14:00:00 (Tejas) 09:45: Billingsley 00 [id number] Neuro anxiety Neuro/Emot Resolve 2018-11-11 Darya present ion d 9-15 14:00:00 (Tejas) 09:45: Billingsley [id number] Activity ADL Activity Resolve 2018-11-11 Darya assistance d 9-15 14:00:00 (Tejas) required 09:45: Billingsley [id number] Safety sanitation Safety Resolve 2018-10-25 Darya hazards d 9-15 15:10:00 (Tejas) present 09:45: Billingsley [id number] Safety fall risk Safety Resolve 2018-10-25 Darya factor d 9-15 15:10:00 (Tejas) present 09:45: Billingsley [id number] Safety risk for Safety Resolve 2018-10-25 Darya hospitaliza d 9-15 15:10:00 (Tejas) tion 09:45: Billingsley 00 [id number] Safety can be left Safety Resolve 2018-11-11 Darya alone for d 9-15 14:00:00 (Tejas) only short 09:45: Billingsley periods 00 [id number] Medication oral med Meds Resolve 2018-03-15 Darya assistance d 9-15 15:24:00 (Tejas) required 09:45: Billingsley [id number] Medication knowledge/s Meds Resolve 2018-03-15 Darya kill d 9-15 15:24:00 (Tejas) deficit: pt 09:45: Billingsley [id number] Medication potential Meds Resolve 2018-03-15 Darya clinically d 9-15 15:24:00 (Tejas) significant 09:45: Billingsley medication [id number] issue Musculoskel transfer Musculoske Unknown Quality etal assistance letal 01-26 Realtime7 required 09:45: 00 Sensory impaired Sensory Resolve 2018-11-11 Quality verbal d 917 14:00:00 Realtime7 communicati 14:00: on 24 Endo/Sen glucose Endo/Sen Resolve 2018-02-25 Cherrise tolerance d 01-31 14:00:00 Olya problem 13:25: [id number] 00 Nutrition knowledge/s Nutrition Resolve 2018-03-15 Cherrise kill d 01-31 15:24:00 Olya deficit: pt 13:25: [id number] 00 Elimination urinary Eliminatio Resolve 2018-03-01 Cherrise urgency n d 01-31 09:00:00 [place] 13:25: [id number] 00 Elimination urinary Eliminatio Resolve 2018-03-01 Cherrise frequency n d 01-31 09:00:00 Olya 13:25: [id number] 00 Neuro impaired Neuro/Emot Resolve 2018-11-11 Cherrise decision-ma ion d 01-31 14:00:00 [place] wilver 13:25: [id number] 00 Musculoskel requires Musculoske Unknown Cherrise etal human letal 9-20 [place] assist to 13:25: [id number] leave home 00 Cardio hypertensio Cardiovasc Resolve 2018-02-18 Cherrise n ular d 9-24 13:35:00 [place] 13:05: [id number] 00 Musculoskel requires Musculoske Unknown 2017-05 Cherrise etal human letal 0-05 [place] assist to 13:40: [id number] leave home 00 Cardio hypertensio Cardiovasc Resolve 2017-052018-03-25 Cherrise n ular d 0-12 14:35:00 Olya 12:45: [id number] 00 Respiratory smoker Respirator Resolve 2017-052018-04-24 Cherrise y d 0-12 15:19:00 [place] 12:45: [id number] 00 Musculoskel transfer Musculoske Unknown 2017-05 Cherrise etal assistance letal 0-12 [place] required 12:45: [id number] 00 Endo/Sen glucose Endo/Sen Resolve 2017-052018-03-22 Cherrise tolerance d 0-22 15:29:00 [place] problem 13:50: [id number] 00 Elimination urinary Eliminatio Resolve 2017-052018-03-15 Cherrise incontinenc n d 0-22 15:24:00 Olya e 13:50: [id number] 00 Elimination urinary Eliminatio Resolve 2017-052018-03-15 Cherrise urgency n d 0-22 15:24:00 Olya 13:50: [id number] 00 Elimination urinary Eliminatio Resolve 2017-052018-03-15 Cherrise frequency n d 0-22 15:24:00 [place] 13:50: [id number] 00 Endo/Sen glucose Endo/Sen Resolve 2017-052018-03-22 Cherrise testing d 0-29 15:29:00 Olya dependence 13:30: [id number] 00 Nutrition knowledge/s Nutrition Resolve 2017-052018-03-25 Cherrise kill d 1-05 14:35:00 Olya deficit: pt 11:30: [id number] 00 Elimination urinary Eliminatio Resolve 2017-052018-03-22 Cherrise frequency n d 1-05 15:29:00 Olya 11:30: [id number] 00 Pain frequent Pain Mgmt Resolve 2017-052018-06-14 Stephany pain d 05-25 14:43:00 Barber-Zos 14:35: h [id number] 00 Nutrition nutritional Nutrition Resolve 2017-052018-03-25 Stephany restriction d 05-25 14:35:00 Hulett-Zos s 14:35: h [id number] 00 Elimination urinary Eliminatio Resolve 2017-052018-04-05 Stephany incontinenc n d 05-25 14:45:00 Barber-Zos e 14:35: h [id number] 00 Elimination urinary Eliminatio Resolve 2017-052018-04-05 Stephany frequency n d 05-25 14:45:00 Hulett-Zos 14:35: h [id number] 00 Musculoskel requires Musculoske Unknown 2017-05 Stephany etal special letal 05-25 Barber-Zos transportat 14:35: h [id number] ion 00 Cardio hypertensio Cardiovasc Resolve 2017-052018-04-12 Cherrise n ular d 05-27 13:46:00 [place] 12:00: [id number] 00 Endo/Sen glucose Endo/Sen Resolve 2017-052018-04-05 Cherrise tolerance d 05-27 14:45:00 Olya problem 12:00: [id number] 00 Elimination urinary Eliminatio Resolve 2017-052018-04-05 Cherrise urgency n d 06-01 14:45:00 [place] 12:45: [id number] 00 Elimination urinary Eliminatio Resolve 2017-052018-04-12 Cherrise urgency n d 06-08 13:46:00 Olya 10:55: [id number] 00 Elimination urinary Eliminatio Resolve 2017-052018-04-12 Cherrise frequency n d 06-08 13:46:00 [place] 10:55: [id number] 00 Endo/Sen glucose Endo/Sen Resolve 2017-052018-04-24 Cherrise tolerance d 06-16 15:19:00 [place] problem 12:20: [id number] 00 Elimination urinary Eliminatio Resolve 2017-052018-04-24 Cherrise frequency n d 06-16 15:19:00 [place] 12:20: [id number] 00 Cardio hypertensio Cardiovasc Resolve 2017-052018-04-24 Cherrise n ular d 2- 15:19:00 [place] 10:35: [id number] 00 Elimination urinary Eliminatio Resolve 2017-052018-04-24 Cherrise urgency n d 2 15:19:00 Olya 10:35: [id number] 00 Elimination urinary Eliminatio Resolve 2017-052018-04-24 Stephany incontinenc n d 06-25 15:19:00 Barber-Zos e 15:19: h [id number] 00 Cardio hypertensio Cardiovasc Resolve 2017-052018-06-07 Cherrise n ular d 2-14 13:31:00 [place] 13:15: [id number] 00 Respiratory dyspnea Respirator Active 2017-05 Cherrise present y 06-27 [place] 13:15: [id number] 00 Respiratory CPAP Respirator Active 2017-05 Cherrise treatments y 06-27 Olya in home 13:15: [id number] 00 Respiratory smoker Respirator Resolve 2017-052018-06-03 Cherrise y d 2-14 14:08:00 [place] 13:15: [id number] 00 Elimination urinary Eliminatio Resolve 2017-052018-05-31 Cherrise urgency n d 2-14 14:21:00 Olya 13:15: [id number] 00 Elimination urinary Eliminatio Resolve 2017-052018-05-31 Cherrise frequency n d 2-14 14:21:00 Olya 13:15: [id number] 00 Elimination diarrhea Eliminatio Resolve 2017-052018-05-31 Cherrise n d 2-14 14:21:00 [place] 13:15: [id number] 00 Endo/Sen glucose Endo/Sen Resolve 2017-052018-05-31 Cherrise tolerance d 2-24 14:21:00 [place] problem 13:10: [id number] 00 Infection s/s of Infection Active Stephany infection 05-31 Barber-Zos 14:21: h [id number] 00 Respiratory smoker Respirator Resolve 2018-09-13 Cherrise y d 06-05 13:20:00 Olya 13:35: [id number] 00 Endo/Sen glucose Endo/Sen Resolve 2018-06-21 Cherrise tolerance d 06-05 10:26:00 [place] problem 13:35: [id number] 00 Elimination urinary Eliminatio Resolve 2018-06-14 Cherrise urgency n d 06-05 14:43:00 [place] 13:35: [id number] 00 Elimination urinary Eliminatio Resolve 2018-06-14 Cherrise frequency n d 06-05 14:43:00 [place] 13:35: [id number] 00 Cardio hypertensio Cardiovasc Resolve 2018-09-13 Cherrise n ular d 06-10 13:20:00 Olya 11:00: [id number] 00 Elimination urinary Eliminatio Resolve 2018-06-21 Cherrise urgency n d 06-19 10:26:00 [place] 10:50: [id number] 00 Elimination urinary Eliminatio Resolve 2018-06-21 Stephany frequency n d 06-21 10:26:00 Hulett-Zos 10:26: h [id number] 00 Endo/Sen glucose Endo/Sen Resolve 2018-06-28 Cherrise tolerance d 2- 14:32:00 [place] problem 11:25: [id number] 00 Elimination urinary Eliminatio Resolve 2018-06-28 Cherrise urgency n d 2- 14:32:00 Olya 11:25: [id number] 00 Elimination urinary Eliminatio Resolve 2018-06-28 Cherrise frequency n d 2- 14:32:00 [place] 11:50: [id number] 00 Endo/Sen glucose Endo/Sne Resolve 2018-07-12 Cherrise tolerance d 07-03 13:43:00 [place] problem 11:50: [id number] 00 Elimination urinary Eliminatio Resolve 2018-07-12 Cherrise urgency n d 07-08 13:43:00 [place] 12:30: [id number] 00 Neuro depressive Neuro/Emot Resolve 2018-11-11 Cherrise feelings ion d 2 14:00:00 Olya present 12:30: [id number] 00 Elimination urinary Eliminatio Resolve 2018-07-12 Cherrise frequency n d 2-27 13:43:00 Olya 10:45: [id number] 00 Elimination urinary Eliminatio Resolve 2018-07-24 Stephany frequency n d 3-06 12:48:00 Barber-Zos 11:53: h [id number] 00 Endo/Sen glucose Endo/Sen Resolve 2018-09-18 Cherrise tolerance d 3-11 10:59:00 Olya problem 10:15: [id number] 00 Elimination urinary Eliminatio Resolve 2018-07-24 Cherrise urgency n d 3-11 12:48:00 Olya 10:15: [id number] 00 Pain frequent Pain Mgmt Resolve 2018-07-24 Stephany pain d 3-13 12:48:00 Barber-Zos 12:48: h [id number] 00 Elimination urinary Eliminatio Resolve 2018-09-13 Cherrise urgency n d 3-15 13:20:00 Olya 12:40: [id number] 00 Musculoskel requires Musculoske Unknown Cherrise etal human letal 3-15 Olya assist to 12:40: [id number] leave home 00 Respiratory lung sounds Respirator Resolve 2018-09-13 Christel deficit y d - 13:20:00 Jeb 15:19: [id number] 00 Safety fire risk Safety Resolve 2018-10-25 Christel present d 3 15:10:00 Jeb 15:19: [id number] 00 Elimination urinary Eliminatio Resolve 2018-09-13 Cherrise frequency n d 4-08 13:20:00 [place] 12:50: [id number] 00 Integument surgical Integument Active Cherrise wound 4-24 Olya present 11:45: [id number] 00 Integument skin Integument Active Cherrise integrity 4-24 Olya risk 11:45: [id number] 00 Integument other wound Integument Active Cherrise present 4- [place] 11:45: [id number] 00 Nutrition knowledge/s Nutrition Active Cherrise kill 09-04 [place] deficit: pt 11:45: [id number] 00 Nutrition nutritional Nutrition Active Cherrise restriction 09-04 Olya s 11:45: [id number] 00 Musculoskel transfer Musculoske Resolve 2018-10-25 Cherrise etal assistance letal d 09-04 15:10:00 Olya required 11:45: [id number] 00 Musculoskel requires Musculoske Resolve 2018-10-25 Cherrise etal human letal d 09-04 15:10:00 Olya assist to 11:45: [id number] leave home 00 Elimination constipatio Eliminatio Resolve 2018-09-13 Cherrise n n d 09-09 13:20:00 [place] 14:10: [id number] 00 Pain frequent Pain Mgmt Resolve 2018-10-25 Madelaine pain d 08 15:10:00 [facility] 10:59: [id number] 00 Respiratory smoker Respirator Resolve 2018-10-25 Cherrise y d - 15:10:00 [place] 11:50: [id number] 00 Elimination urinary Eliminatio Resolve 2018-10-25 Cherrise urgency n d - 15:10:00 Olya 11:50: [id number] 00 Cardio hypertensio Cardiovasc Resolve 2018-11-11 Cherrise n ular d 10-09 14:00:00 Olya 11:20: [id number] 00 Endo/Sen glucose Endo/Sen Resolve 2018-10-25 Cherrise tolerance d 10-09 15:10:00 [place] problem 11:20: [id number] 00 Elimination urinary Eliminatio Resolve 2018-10-25 Conchita frequency n d 10-16 15:10:00 Shimon, 14:00: [id number] 00 Cardio edema Cardiovasc Resolve 2018-11-11 Cherrise ular d 6- 14:00:00 Olya 11:00: [id number] 00 Safety risk for Safety Resolve 2018-11-01 Conchita hospitaliza d 6-17 14:00:00 daniel Robins 14:30: [id number] 00 Respiratory smoker Respirator Resolve 2018-11-11 Cherrise y d 6-19 14:00:00 Olya 10:25: [id number] 00 Endo/Sen glucose Endo/Sen Resolve 2018-11-11 Cherrise tolerance d 6-19 14:00:00 Olya problem 10:25: [id number] 00 Elimination urinary Eliminatio Resolve 2018-11-11 Cherrise urgency n d 6-19 14:00:00 Olya 10:25: [id number] 00 Elimination urinary Eliminatio Resolve 2018-11-11 Cherrise frequency n d 6-19 14:00:00 Olya 10:25: [id number] 00 Musculoskel requires Musculoske Resolve 2018-12-23 Cherrise etal human letal d 6- 11:00:00 Olya assist to 10:25: [id number] leave home 00 Musculoskel requires Musculoske Resolve 2018-12-23 Kerry etal special letal d 6- 11:00:00 Maria Antonia transportat 18:30: [id number] ion 00 Safety fall risk Safety Resolve 2018-12-13 Cherrise factor d 7- 14:40:00 [place] present 14:45: [id number] 00 Neuro impaired Neuro/Emot Resolve 2018-12-13 Madelaine mullen ion d 7- 14:40:00 Jose Angel pettit 14:00: [id number] 00 Safety risk for Safety Resolve 2018-12-13 Madelaine garciaiza d 7-10 14:40:00 Ingrahm tion 14:00: [id number] 00 Cardio edema Cardiovasc Resolve 2018-12-23 Cherrise ular d 7-15 11:00:00 Olya 11:00: [id number] 00 Respiratory smoker Respirator Resolve 2018-12-23 Cherrise y d 7-15 11:00:00 [place] 11:00: [id number] 00 Endo/Sen glucose Endo/Sen Resolve 2019-01-01 Cherrise tolerance d 7-15 15:00:00 [place] problem 11:00: [id number] 00 Elimination urinary Eliminatio Resolve 2018-12-13 Cherrise urgency n d 7-15 14:40:00 Olya 11:00: [id number] 00 Safety sanitation Safety Resolve 2018-12-13 Cherrise hazards d 7-15 14:40:00 Olya present 11:00: [id number] 00 Elimination urinary Eliminatio Resolve 2018-12-13 Cherrise frequency n d 7 14:40:00 [place] 11:15: [id number] 00 Neuro depressive Neuro/Emot Resolve 2019-01-17 Cherrise feelings ion d 12-02 15:25:00 Olya present 11:15: [id number] 00 Cardio hypertensio Cardiovasc Resolve 2018-12-23 Cherrise n ular d 12-04 11:00:00 [place] 14:40: [id number] 00 Musculoskel knowledge/s Musculoske Resolve 2018-12-23 Cherrise etal kill letal d 12-16 11:00:00 Olya deficit: cg 14:15: [id number] 00 Elimination urinary Eliminatio Resolve 2018-12-23 Cherrise urgency n d 12-20 11:00:00 Olya 10:10: [id number] 00 Neuro depressive Neuro/Emot Unknown Cherrise feelings ion 12-20 [place] present 10:10: [id number] 00 Neuro impaired Neuro/Emot Resolve 2019-01-17 Cherrise decision-ma ion d 12-20 15:25:00 Olya wilver 10:10: [id number] 00 Safety risk for Safety Resolve 2018-12-23 Cherrise hospitaliza d 12-20 11:00:00 [place] tion 10:10: [id number] 00 Sensory impaired Sensory Resolve 2019-01-17 Madelaine verbal d 12-23 15:25:00 Ingrahm communicati 11:00: [id number] 00 Cardio hypertensio Cardiovasc Resolve 2019-01-01 Cherrise n ular d 8-14 15:00:00 [place] 12:00: [id number] 00 Respiratory smoker Respirator Resolve 2019-01-01 Cherrise y d 8-14 15:00:00 Olya 12:00: [id number] 00 Elimination urinary Eliminatio Resolve 2019-01-01 Cherrise urgency n d 8-14 15:00:00 Olya 12:00: [id number] 00 Neuro anxiety Neuro/Emot Resolve 2019-01-17 Cherrise present ion d 8 15:25:00 [place] 12:00: [id number] 00 Safety risk for Safety Resolve 2019-01-01 Cherrise hospitaliza d 8 15:00:00 [place] tion 12:00: [id number] 00 Musculoskel requires Musculoske Unknown Cherrise etal human letal 12-25 [place] assist to 12:00: [id number] leave home 00 Respiratory smoker Respirator Resolve 2019-01-17 Cherrise y d 01-03 15:25:00 Olya 11:45: [id number] 00 Elimination urinary Eliminatio Resolve 2019-01-17 Cherrise urgency n d 01-03 15:25:00 Olya 11:45: [id number] 00 Safety fall risk Safety Resolve 2019-01-06 Cherrise factor d 01-03 12:25:00 Olya present 11:45: [id number] 00 Safety risk for Safety Resolve 2019-02-12 Cherrise hospitaliza d 01-03 15:15:00 [place] tion 11:45: [id number] 00 Neuro memory Neuro/Emot Active Cherrise deficit ion 01-13 [place] needing 11:20: [id number] supervision 00 Elimination urinary Eliminatio Resolve 2019-01-17 Madelaine incontinenc n d 01-17 15:25:00 Ingrahm e 15:25: [id number] 00 Safety fall risk Safety Resolve 2019-01-17 Desiree factor d 01-17 15:25:00 Rashid present 15:25: [id number] 00 Cardio hypertensio Cardiovasc Resolve 2019-01-24 Narciso aguilar ular d 01-20 09:00:00 [place] 11:15: [id number] 00 Safety sanitation Safety Resolve 2019-02-12 Cherrise hazards d 01-20 15:15:00 [place] present 11:15: [id number] 00 Respiratory smoker Respirator Resolve 2019-01-24 Madelaine y d 01-24 09:00:00 Ingrahm 09:00: [id number] 00 Musculoskel transfer Musculoske Active Cherrise etal assistance letal 01-29 Olya required 13:25: [id number] 00 Musculoskel requires Musculoske Active Cherrise etal human letal 01-29 [place] assist to 13:25: [id number] leave home 00 Musculoskel requires Musculoske Active Cherrise etal special letal 01-29 [place] transportat 13:25: [id number] ion 00 Respiratory smoker Respirator Resolve 2019-02-05 Cherrise y d 02-03 15:10:00 [place] 10:00: [id number] 00 Elimination urinary Eliminatio Resolve 2019-02-12 Cherrise urgency n d 02-03 15:15:00 [place] 10:00: [id number] 00 Safety fall risk Safety Resolve 2019-02-12 Cherrise factor d 9 15:15:00 Olya present 11:15: [id number] 00 Cardio hypertensio Cardiovasc Resolve 2018-052019-02-19 Narciso hernandez d 0-04 14:00:00 [place] 11:50: [id number] 00 Respiratory smoker Respirator Resolve 2018-052019-02-19 Narciso y d 0-07 14:00:00 [place] 11:30: [id number] 00 Safety risk for Safety Resolve 2018-052019-03-12 Madelaine navarrete d 0-09 15:00:00 Ingrahm tion 14:00: [id number] 00 Cardio hypertensio Cardiovasc Resolve 2018-052019-03-19 Cherrise n ular d 0-18 14:00:00 [place] 12:30: [id number] 00 Respiratory smoker Respirator Resolve 2018-052019-03-12 Cherrise y d 0-18 15:00:00 [place] 12:30: [id number] 00 Elimination urinary Eliminatio Resolve 2018-052019-03-12 Cherrise urgency n d 0-18 15:00:00 Olya 12:30: [id number] 00 Respiratory smoker Respirator Resolve 2018-052019-03-19 Cherrise y d 04 14:00:00 Olya 09:40: [id number] 00 Elimination urinary Eliminatio Resolve 2018-052019-03-19 Cherrise urgency n d 05-17 14:00:00 Olya 09:40: [id number] 00 Safety risk for Safety Active 2018-05 Cherrise hospitaliza 05-17 [place] tion 09:40: [id number] 00 Safety fall risk Safety Active 2018-05 Madelaine factor 05-19 Ingrahm present 14:00: [id number] 00 Respiratory smoker Respirator Active 2018-05 Cherrise y 05-28 [place] 10:55: [id number] 00 Elimination urinary Eliminatio Active 2018-05 Cherrise incontinenc n 05-28 [place] e 10:55: [id number] 00 Elimination urinary Eliminatio Active 2018-05 Cherrise urgency n 05-28 [place] 10:55: [id number] 00 Neuro depressive Neuro/Emot Active 2018-05 Cherrise feelings ion 05-28 [place] present 10:55: [id number] 00 Neuro impaired Neuro/Emot Active 2018-05 Cherrise decision-ma ion 05-28 [place] wilver 10:55: [id number] 00 Safety sanitation Safety Active 2018-05 Cherrise hazards 05-28 [place] present 10:55: [id number] 00 Allergies, Adverse Reactions, Alerts Allergy Allergy [...] n 20 mg n 20 mg -15 MD,[place] tablet tablet furosemide furosemide 2017- No Pachikara [...] Unknown Unknown 10 mg 10 mg 01-26 MD,[place] tablet tablet lisinopril lisinopril 2017-05- No [place] Unknown Unknown 20 mg 20 mg 0-15 MD,[place] tablet tablet oxyCODONE 5 oxyCODONE 5 No Rafita Unknown Unknown mg tablet mg tablet 2-07 ,[place] lisinopril lisinopril 2018- No Rafita Unknown Unknown 20 mg 20 mg 06-28-20 ,[facility] tablet tablet lisinopril lisinopril No Rafita Unknown Unknown 30 mg 30 mg 2-15 MD,[facility] tablet tablet hydroCHLORO hydroCHLORO No Rafita Unknown Unknown thiazide 50 thiazide 50 6-15 MD,[facility] mg tablet mg tablet nystatin nystatin No [...]
--- OUTSIDE RECORDS SUMMARY | 2019-05-09 12:30 | XMS REPORT ---
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 [id number] causing causing diseases diseases classd classd elswhr elswhr Type 2 Type 2 Diagnosis Active Madelaine diabetes diabetes 05-14 [facility] mellitus mellitus [id number] with with diabetic diabetic neuropathy, neuropathy, unsp unsp Essential Essential Diagnosis Active Madelaine (primary) (primary) 05-14 [facility] hypertensio hypertensio [id number] n n Chronic Chronic Diagnosis Active Madelaine obstructive obstructive 05-14 [facility] pulmonary pulmonary [id number] disease, disease, unspecified unspecified G47.33 G47.33 Diagnosis Active Madelaine 05-14 In[facility] [id number] Pain frequent Pain Mgmt Resolve 2018-06-14 Darya pain d 01-26 14:43:00 (Tejas) 09:45: Analilia 00 [id number] Cardio edema Cardiovasc Resolve 2018-02-18 Darya ular d 01-26 13:35:00 (Tejas) 09:45: Analilia 00 [id number] Cardio knowledge/s Cardiovasc Resolve 2018-02-18 Darya kill ular d 01-26 13:35:00 (Tejas) deficit: pt 09:45: Analilia 00 [id number] Respiratory dyspnea Respirator Resolve 2018-04-24 Darya present y d 01-26 15:19:00 (Tejas) 09:45: Analilia 00 [id number] Respiratory CPAP Respirator Resolve 2018-04-24 Quality treatments y d 9-15 15:19:00 Realtime7 in home 09:45: 00 Endo/Sen diabetic Endo/Sen Resolve 2018-02-25 Darya foot care d 9-15 14:00:00 (Tejas) 09:45: Billingsley [id number] Integument surgical Integument Resolve 2018-03-25 Darya wound d 9-15 14:35:00 (Tejas) present 09:45: Billingsley [id number] Integument skin Integument Resolve 2018-03-25 Darya integrity d 9-15 14:35:00 (Tejas) risk 09:45: Billingsley [id number] Integument other wound Integument Resolve 2018-03-25 Quality present d 9-15 14:35:00 Realtime7 09:45: 00 Nutrition nutritional Nutrition Resolve 2018-03-15 Darya restriction d 9-15 15:24:00 (Tejas) s 09:45: Billingsley [id number] Elimination urinary Eliminatio Resolve 2018-03-01 Darya incontinenc n d 9-15 09:00:00 (Tejas) e 09:45: Billingsley 00 [id number] Neuro confusion Neuro/Emot Resolve 2018-11-11 Darya present ion d 9-15 14:00:00 (Tejas) 09:45: Billingsley 00 [id number] Neuro anxiety Neuro/Emot Resolve 2018-11-11 Darya present ion d 9-15 14:00:00 (Tejas) 09:45: Billingsley [id number] Activity ADL Activity Resolve 2018-11-11 Darya assistance d 9-15 14:00:00 (Tejas) required 09:45: Billingsley [id number] Safety sanitation Safety Resolve 2018-10-25 Darya hazards d 9-15 15:10:00 (Tejas) present 09:45: Billingsley [id number] Safety fall risk Safety Resolve 2018-10-25 Darya factor d 9-15 15:10:00 (Tejas) present 09:45: Billingsley [id number] Safety risk for Safety Resolve 2018-10-25 Darya hospitaliza d 9-15 15:10:00 (Tejas) tion 09:45: Billingsley 00 [id number] Safety can be left Safety Resolve 2018-11-11 Darya alone for d 9-15 14:00:00 (Tejas) only short 09:45: Billingsley periods 00 [id number] Medication oral med Meds Resolve 2018-03-15 Darya assistance d 9-15 15:24:00 (Tejas) required 09:45: Billingsley [id number] Medication knowledge/s Meds Resolve 2018-03-15 Darya kill d 9-15 15:24:00 (Tejas) deficit: pt 09:45: Billingsley [id number] Medication potential Meds Resolve 2018-03-15 Darya clinically d 9-15 15:24:00 (Tejas) significant 09:45: Billingsley medication [id number] issue Musculoskel transfer Musculoske Unknown Quality etal assistance letal 01-26 Realtime7 required 09:45: 00 Sensory impaired Sensory Resolve 2018-11-11 Quality verbal d 917 14:00:00 Realtime7 communicati 14:00: on 24 Endo/Sen glucose Endo/Sen Resolve 2018-02-25 Cherrise tolerance d 01-31 14:00:00 Olya problem 13:25: [id number] 00 Nutrition knowledge/s Nutrition Resolve 2018-03-15 Cherrise kill d 01-31 15:24:00 Olya deficit: pt 13:25: [id number] 00 Elimination urinary Eliminatio Resolve 2018-03-01 Cherrise urgency n d 01-31 09:00:00 Point 13:25: [id number] 00 Elimination urinary Eliminatio Resolve 2018-03-01 Cherrise frequency n d 01-31 09:00:00 Olya 13:25: [id number] 00 Neuro impaired Neuro/Emot Resolve 2018-11-11 Cherrise decision-ma ion d 01-31 14:00:00 Point wilver 13:25: [id number] 00 Musculoskel requires Musculoske Unknown Cherrise etal human letal 9-20 Point assist to 13:25: [id number] leave home 00 Cardio hypertensio Cardiovasc Resolve 2018-02-18 Cherrise n ular d 9-24 13:35:00 Point 13:05: [id number] 00 Musculoskel requires Musculoske Unknown 2017-05 Cherrise etal human letal 0-05 Point assist to 13:40: [id number] leave home 00 Cardio hypertensio Cardiovasc Resolve 2017-052018-03-25 Cherrise n ular d 0-12 14:35:00 Olya 12:45: [id number] 00 Respiratory smoker Respirator Resolve 2017-052018-04-24 Cherrise y d 0-12 15:19:00 Point 12:45: [id number] 00 Musculoskel transfer Musculoske Unknown 2017-05 Cherrise etal assistance letal 0-12 Point required 12:45: [id number] 00 Endo/Sen glucose Endo/Sen Resolve 2017-052018-03-22 Cherrise tolerance d 0-22 15:29:00 Point problem 13:50: [id number] 00 Elimination urinary Eliminatio Resolve 2017-052018-03-15 Cherrise incontinenc n d 0-22 15:24:00 Olya e 13:50: [id number] 00 Elimination urinary Eliminatio Resolve 2017-052018-03-15 Cherrise urgency n d 0-22 15:24:00 Olya 13:50: [id number] 00 Elimination urinary Eliminatio Resolve 2017-052018-03-15 Cherrise frequency n d 0-22 15:24:00 Point 13:50: [id number] 00 Endo/Sen glucose Endo/Sen Resolve 2017-052018-03-22 Cherrise testing d 0-29 15:29:00 Olya dependence 13:30: [id number] 00 Nutrition knowledge/s Nutrition Resolve 2017-052018-03-25 Cherrise kill d 1-05 14:35:00 Olya deficit: pt 11:30: [id number] 00 Elimination urinary Eliminatio Resolve 2017-052018-03-22 Cherrise frequency n d 1-05 15:29:00 Olya 11:30: [id number] 00 Pain frequent Pain Mgmt Resolve 2017-052018-06-14 Stephany pain d 05-25 14:43:00 [place] 14:35: h [id number] 00 Nutrition nutritional Nutrition Resolve 2017-052018-03-25 Stephany restriction d 05-25 14:35:00 [place] s 14:35: h [id number] 00 Elimination urinary Eliminatio Resolve 2017-052018-04-05 Stephany incontinenc n d 05-25 14:45:00 [place] e 14:35: h [id number] 00 Elimination urinary Eliminatio Resolve 2017-052018-04-05 Stephany frequency n d 05-25 14:45:00 [place] 14:35: h [id number] 00 Musculoskel requires Musculoske Unknown 2017-05 Stephany etal special letal 05-25 [facility] transportat 14:35: h [id number] ion 00 Cardio hypertensio Cardiovasc Resolve 2017-052018-04-12 Cherrise n ular d 05-27 13:46:00 Point 12:00: [id number] 00 Endo/Sen glucose Endo/Sen Resolve 2017-052018-04-05 Cherrise tolerance d 05-27 14:45:00 Olya problem 12:00: [id number] 00 Elimination urinary Eliminatio Resolve 2017-052018-04-05 Cherrise urgency n d 06-01 14:45:00 Point 12:45: [id number] 00 Elimination urinary Eliminatio Resolve 2017-052018-04-12 Cherrise urgency n d 06-08 13:46:00 Olya 10:55: [id number] 00 Elimination urinary Eliminatio Resolve 2017-052018-04-12 Cherrise frequency n d 06-08 13:46:00 Point 10:55: [id number] 00 Endo/Sen glucose Endo/Sen Resolve 2017-052018-04-24 Cherrise tolerance d 06-16 15:19:00 Point problem 12:20: [id number] 00 Elimination urinary Eliminatio Resolve 2017-052018-04-24 Cherrise frequency n d 06-16 15:19:00 Point 12:20: [id number] 00 Cardio hypertensio Cardiovasc Resolve 2017-052018-04-24 Cherrise n ular d 2- 15:19:00 Point 10:35: [id number] 00 Elimination urinary Eliminatio Resolve 2017-052018-04-24 Cherrise urgency n d 2 15:19:00 Olya 10:35: [id number] 00 Elimination urinary Eliminatio Resolve 2017-052018-04-24 Stephany incontinenc n d 06-25 15:19:00 [place] e 15:19: h [id number] 00 Cardio hypertensio Cardiovasc Resolve 2017-052018-06-07 Cherrise n ular d 2-14 13:31:00 Point 13:15: [id number] 00 Respiratory dyspnea Respirator Active 2017-05 Cherrise present y 06-27 Point 13:15: [id number] 00 Respiratory CPAP Respirator Active 2017-05 Cherrise treatments y 06-27 Olya in home 13:15: [id number] 00 Respiratory smoker Respirator Resolve 2017-052018-06-03 Cherrise y d 2-14 14:08:00 Point 13:15: [id number] 00 Elimination urinary Eliminatio Resolve 2017-052018-05-31 Cherrise urgency n d 2-14 14:21:00 Olya 13:15: [id number] 00 Elimination urinary Eliminatio Resolve 2017-052018-05-31 Cherrise frequency n d 2-14 14:21:00 Olya 13:15: [id number] 00 Elimination diarrhea Eliminatio Resolve 2017-052018-05-31 Cherrise n d 2-14 14:21:00 Point 13:15: [id number] 00 Endo/Sen glucose Endo/Sen Resolve 2017-052018-05-31 Cherrise tolerance d 2-24 14:21:00 Point problem 13:10: [id number] 00 Infection s/s of Infection Active Stephany infection 05-31 [facility] 14:21: h [id number] 00 Respiratory smoker Respirator Resolve 2018-09-13 Cherrise y d 06-05 13:20:00 Olya 13:35: [id number] 00 Endo/Sen glucose Endo/Sen Resolve 2018-06-21 Cherrise tolerance d 06-05 10:26:00 Point problem 13:35: [id number] 00 Elimination urinary Eliminatio Resolve 2018-06-14 Cherrise urgency n d 06-05 14:43:00 Point 13:35: [id number] 00 Elimination urinary Eliminatio Resolve 2018-06-14 Cherrise frequency n d 06-05 14:43:00 Point 13:35: [id number] 00 Cardio hypertensio Cardiovasc Resolve 2018-09-13 Cherrise n ular d 06-10 13:20:00 Olya 11:00: [id number] 00 Elimination urinary Eliminatio Resolve 2018-06-21 Cherrise urgency n d 06-19 10:26:00 Point 10:50: [id number] 00 Elimination urinary Eliminatio Resolve 2018-06-21 Stephany frequency n d 06-21 10:26:00 [place] 10:26: h [id number] 00 Endo/Sen glucose Endo/Sen Resolve 2018-06-28 Cherrise tolerance d 2- 14:32:00 Point problem 11:25: [id number] 00 Elimination urinary Eliminatio Resolve 2018-06-28 Cherrise urgency n d 2- 14:32:00 Olya 11:25: [id number] 00 Elimination urinary Eliminatio Resolve 2018-06-28 Cherrise frequency n d 2- 14:32:00 Point 11:50: [id number] 00 Endo/Sen glucose Endo/Sen Resolve 2018-07-12 Cherrise tolerance d 07-03 13:43:00 Point problem 11:50: [id number] 00 Elimination urinary Eliminatio Resolve 2018-07-12 Cherrise urgency n d 07-08 13:43:00 Point 12:30: [id number] 00 Neuro depressive Neuro/Emot Resolve 2018-11-11 Cherrise feelings ion d 2 14:00:00 Olya present 12:30: [id number] 00 Elimination urinary Eliminatio Resolve 2018-07-12 Cherrise frequency n d 2-27 13:43:00 Olya 10:45: [id number] 00 Elimination urinary Eliminatio Resolve 2018-07-24 Stephany frequency n d 3-06 12:48:00 [place] 11:53: h [id number] 00 Endo/Sen glucose Endo/Sen Resolve 2018-09-18 Cherrise tolerance d 3-11 10:59:00 Olya problem 10:15: [id number] 00 Elimination urinary Eliminatio Resolve 2018-07-24 Cherrise urgency n d 3-11 12:48:00 Olya 10:15: [id number] 00 Pain frequent Pain Mgmt Resolve 2018-07-24 Stephany pain d 3-13 12:48:00 [place] 12:48: h [id number] 00 Elimination urinary Eliminatio Resolve 2018-09-13 Cherrise urgency n d 3-15 13:20:00 Olya 12:40: [id number] 00 Musculoskel requires Musculoske Unknown Cherrise etal human letal 3-15 Olya assist to 12:40: [id number] leave home 00 Respiratory lung sounds Respirator Resolve 2018-09-13 Christel deficit y d - 13:20:00 Jeb 15:19: [id number] 00 Safety fire risk Safety Resolve 2018-10-25 Christel present d 3 15:10:00 Jeb 15:19: [id number] 00 Elimination urinary Eliminatio Resolve 2018-09-13 Cherrise frequency n d 4-08 13:20:00 Point 12:50: [id number] 00 Integument surgical Integument Active Cherrise wound 4-24 Olya present 11:45: [id number] 00 Integument skin Integument Active Cherrise integrity 4-24 Olya risk 11:45: [id number] 00 Integument other wound Integument Active Cherrise present 4- Point 11:45: [id number] 00 Nutrition knowledge/s Nutrition Active Cherrise kill 09-04 Point deficit: pt 11:45: [id number] 00 Nutrition nutritional Nutrition Active Cherrise restriction 09-04 Olya s 11:45: [id number] 00 Musculoskel transfer Musculoske Resolve 2018-10-25 Cherrise etal assistance letal d 09-04 15:10:00 Olya required 11:45: [id number] 00 Musculoskel requires Musculoske Resolve 2018-10-25 Cherrise etal human letal d 09-04 15:10:00 Olya assist to 11:45: [id number] leave home 00 Elimination constipatio Eliminatio Resolve 2018-09-13 Cherrise n n d 09-09 13:20:00 Point 14:10: [id number] 00 Pain frequent Pain Mgmt Resolve 2018-10-25 Madelaine pain d 08 15:10:00 [facility] 10:59: [id number] 00 Respiratory smoker Respirator Resolve 2018-10-25 Cherrise y d - 15:10:00 Point 11:50: [id number] 00 Elimination urinary Eliminatio Resolve 2018-10-25 Cherrise urgency n d - 15:10:00 Olya 11:50: [id number] 00 Cardio hypertensio Cardiovasc Resolve 2018-11-11 Cherrise n ular d 10-09 14:00:00 Olya 11:20: [id number] 00 Endo/Sen glucose Endo/Sen Resolve 2018-10-25 Cherrise tolerance d 10-09 15:10:00 Point problem 11:20: [id number] 00 Elimination urinary Eliminatio Resolve 2018-10-25 Conchita frequency n d 10-16 15:10:00 Shimon, 14:00: [id number] 00 Cardio edema Cardiovasc Resolve 2018-11-11 Cherrise ular d 6- 14:00:00 Olya 11:00: [id number] 00 Safety risk for Safety Resolve 2018-11-01 Conchita hospitaliza d 6-17 14:00:00 daniel Robins 14:30: [id number] 00 Respiratory smoker Respirator Resolve 2018-11-11 Cherrise y d 6-19 14:00:00 Olya 10:25: [id number] 00 Endo/Sen glucose Endo/Sen Resolve 2018-11-11 Cherrise tolerance d 6-19 14:00:00 Olya problem 10:25: [id number] 00 Elimination urinary Eliminatio Resolve 2018-11-11 Cherrise urgency n d 6-19 14:00:00 Olya 10:25: [id number] 00 Elimination urinary Eliminatio Resolve 2018-11-11 Cherrise frequency n d 6-19 14:00:00 Olya 10:25: [id number] 00 Musculoskel requires Musculoske Resolve 2018-12-23 Cherrise etal human letal d 6- 11:00:00 Olya assist to 10:25: [id number] leave home 00 Musculoskel requires Musculoske Resolve 2018-12-23 Kerry etal special letal d 6- 11:00:00 Maria Antonia transportat 18:30: [id number] ion 00 Safety fall risk Safety Resolve 2018-12-13 Cherrise factor d 7- 14:40:00 Point present 14:45: [id number] 00 Neuro impaired Neuro/Emot Resolve 2018-12-13 Madelaine mullen ion d 7- 14:40:00 Jose Angel pettit 14:00: [id number] 00 Safety risk for Safety Resolve 2018-12-13 Madelaine garciaiza d 7-10 14:40:00 Ingrahm tion 14:00: [id number] 00 Cardio edema Cardiovasc Resolve 2018-12-23 Cherrise ular d 7-15 11:00:00 Olya 11:00: [id number] 00 Respiratory smoker Respirator Resolve 2018-12-23 Cherrise y d 7-15 11:00:00 Point 11:00: [id number] 00 Endo/Sen glucose Endo/Sen Resolve 2019-01-01 Cherrise tolerance d 7-15 15:00:00 Point problem 11:00: [id number] 00 Elimination urinary Eliminatio Resolve 2018-12-13 Cherrise urgency n d 7-15 14:40:00 Olya 11:00: [id number] 00 Safety sanitation Safety Resolve 2018-12-13 Cherrise hazards d 7-15 14:40:00 Olya present 11:00: [id number] 00 Elimination urinary Eliminatio Resolve 2018-12-13 Cherrise frequency n d 7 14:40:00 Point 11:15: [id number] 00 Neuro depressive Neuro/Emot Resolve 2019-01-17 Cherrise feelings ion d 12-02 15:25:00 Olya present 11:15: [id number] 00 Cardio hypertensio Cardiovasc Resolve 2018-12-23 Cherrise n ular d 12-04 11:00:00 Point 14:40: [id number] 00 Musculoskel knowledge/s Musculoske Resolve 2018-12-23 Cherrise etal kill letal d 12-16 11:00:00 Olya deficit: cg 14:15: [id number] 00 Elimination urinary Eliminatio Resolve 2018-12-23 Cherrise urgency n d 12-20 11:00:00 Olya 10:10: [id number] 00 Neuro depressive Neuro/Emot Unknown Cherrise feelings ion 12-20 Point present 10:10: [id number] 00 Neuro impaired Neuro/Emot Resolve 2019-01-17 Cherrise decision-ma ion d 12-20 15:25:00 Olya wilver 10:10: [id number] 00 Safety risk for Safety Resolve 2018-12-23 Cherrise hospitaliza d 12-20 11:00:00 Point tion 10:10: [id number] 00 Sensory impaired Sensory Resolve 2019-01-17 Madelaine verbal d 12-23 15:25:00 Ingrahm communicati 11:00: [id number] on 00 Cardio hypertensio Cardiovasc Resolve 2019-01-01 Cherrise n ular d 8-14 15:00:00 Point 12:00: [id number] 00 Respiratory smoker Respirator Resolve 2019-01-01 Cherrise y d 8-14 15:00:00 Olya 12:00: [id number] 00 Elimination urinary Eliminatio Resolve 2019-01-01 Cherrise urgency n d 8-14 15:00:00 Olya 12:00: [id number] 00 Neuro anxiety Neuro/Emot Resolve 2019-01-17 Cherrise present ion d 8 15:25:00 Point 12:00: [id number] 00 Safety risk for Safety Resolve 2019-01-01 Cherrise hospitaliza d 8 15:00:00 Point tion 12:00: [id number] 00 Musculoskel requires Musculoske Unknown Cherrise etal human letal 12-25 Point assist to 12:00: [id number] leave home 00 Respiratory smoker Respirator Resolve 2019-01-17 Cherrise y d 01-03 15:25:00 Olya 11:45: [id number] 00 Elimination urinary Eliminatio Resolve 2019-01-17 Cherrise urgency n d 01-03 15:25:00 Olya 11:45: [id number] 00 Safety fall risk Safety Resolve 2019-01-06 Cherrise factor d 01-03 12:25:00 Olya present 11:45: [id number] 00 Safety risk for Safety Resolve 2019-02-12 Cherrise hospitaliza d 01-03 15:15:00 Point tion 11:45: [id number] 00 Neuro memory Neuro/Emot Active Cherrise deficit ion 01-13 Point needing 11:20: [id number] supervision 00 Elimination urinary Eliminatio Resolve 2019-01-17 Madelaine incontinenc n d 01-17 15:25:00 Ingrahm e 15:25: [id number] 00 Safety fall risk Safety Resolve 2019-01-17 Desiree factor d 01-17 15:25:00 Rashid present 15:25: [id number] 00 Cardio hypertensio Cardiovasc Resolve 2019-01-24 Narciso aguilar ular d 01-20 09:00:00 Point 11:15: [id number] 00 Safety sanitation Safety Resolve 2019-02-12 Cherrise hazards d 01-20 15:15:00 Point present 11:15: [id number] 00 Respiratory smoker Respirator Resolve 2019-01-24 Madelaine y d 01-24 09:00:00 Ingrahm 09:00: [id number] 00 Musculoskel transfer Musculoske Active Cherrise etal assistance letal 01-29 Olya required 13:25: [id number] 00 Musculoskel requires Musculoske Active Cherrise etal human letal 01-29 Point assist to 13:25: [id number] leave home 00 Musculoskel requires Musculoske Active Cherrise etal special letal 01-29 Point transportat 13:25: [id number] ion 00 Respiratory smoker Respirator Resolve 2019-02-05 Cherrise y d 02-03 15:10:00 Point 10:00: [id number] 00 Elimination urinary Eliminatio Resolve 2019-02-12 Cherrise urgency n d 02-03 15:15:00 Point 10:00: [id number] 00 Safety fall risk Safety Resolve 2019-02-12 Cherrise factor d 9 15:15:00 Olya present 11:15: [id number] 00 Cardio hypertensio Cardiovasc Resolve 2018-052019-02-19 Narciso hernandez d 0-04 14:00:00 Point 11:50: [id number] 00 Respiratory smoker Respirator Resolve 2018-052019-02-19 Narciso y d 0-07 14:00:00 Point 11:30: [id number] 00 Safety risk for Safety Resolve 2018-052019-03-12 Madelaine navarrete d 0-09 15:00:00 Ingrahm tion 14:00: [id number] 00 Cardio hypertensio Cardiovasc Resolve 2018-052019-03-19 Cherrise n ular d 0-18 14:00:00 Point 12:30: [id number] 00 Respiratory smoker Respirator Resolve 2018-052019-03-12 Cherrise y d 0-18 15:00:00 Point 12:30: [id number] 00 Elimination urinary Eliminatio Resolve 2018-052019-03-12 Cherrise urgency n d 0-18 15:00:00 Olya 12:30: [id number] 00 Respiratory smoker Respirator Resolve 2018-052019-03-19 Cherrise y d 04 14:00:00 Olya 09:40: [id number] 00 Elimination urinary Eliminatio Resolve 2018-052019-03-19 Cherrise urgency n d 05-17 14:00:00 Olya 09:40: [id number] 00 Safety risk for Safety Active 2018-05 Cherrise hospitaliza 05-17 Point tion 09:40: [id number] 00 Safety fall risk Safety Active 2018-05 Madelaine factor 05-19 Ingrahm present 14:00: [id number] 00 Respiratory smoker Respirator Active 2018-05 Cherrise y 05-28 Point 10:55: [id number] 00 Elimination urinary Eliminatio Active 2018-05 Cherrise incontinenc n 05-28 Point e 10:55: [id number] 00 Elimination urinary Eliminatio Active 2018-05 Cherrise urgency n 05-28 Point 10:55: [id number] 00 Neuro depressive Neuro/Emot Active 2018-05 Cherrise feelings ion 05-28 Point present 10:55: [id number] 00 Neuro impaired Neuro/Emot Active 2018-05 Cherrise decision-ma ion 05-28 Point wilver 10:55: [id number] 00 Safety sanitation Safety Active 2018-05 Cherrise hazards 05-28 Point present 10:55: [id number] 00 Allergies, Adverse Reactions, Alerts Allergy Allergy [...] n 20 mg n 20 mg -15 MD,[place] tablet tablet furosemide furosemide 2017- No [place] [...] Unknown Unknown 10 mg 10 mg 01-26 MD,[place] tablet tablet lisinopril lisinopril 2017-05- No [place] Unknown Unknown 20 mg 20 mg 0-15 MD,[place] tablet tablet oxyCODONE 5 oxyCODONE 5 No Rafita Unknown Unknown mg tablet mg tablet 2-07 ,[place] lisinopril lisinopril 2018- No Rafita Unknown Unknown 20 mg 20 mg 06-28-20 ,[facility] tablet tablet lisinopril lisinopril No Rafita Unknown Unknown 30 mg 30 mg 2-15 MD,[facility] tablet tablet hydroCHLORO hydroCHLORO No Rafita Unknown Unknown thiazide 50 thiazide 50 6-15 MD,[facility] mg tablet mg tablet nystatin nystatin No [...]
--- OUTSIDE RECORDS SUMMARY | 2019-05-09 12:30 | XMS REPORT ---
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-26 Ingrm infct infct [id number] causing causing diseases diseases classd classd elswhr elswhr Type 2 Type 2 Diagnosis Active Madelaine diabetes diabetes 05-14 [facility] mellitus mellitus [id number] with with diabetic diabetic neuropathy, neuropathy, unsp unsp Essential Essential Diagnosis Active Madelaine (primary) (primary) 05-14 [facility] hypertensio hypertensio [id number] n n Chronic Chronic Diagnosis Active Madelaine obstructive obstructive 05-14 [facility] pulmonary pulmonary [id number] disease, disease, unspecified unspecified G47.33 G47.33 Diagnosis Active Madelaine 05-14 Ingrahm [id number] Pain frequent Pain Mgmt Resolve 2018-06-14 Darya pain d 01-26 14:43:00 (Tejas) 09:45: Analilia 00 [id number] Cardio edema Cardiovasc Resolve 2018-02-18 Darya ular d 01-26 13:35:00 (Tejas) 09:45: Analilia 00 [id number] Cardio knowledge/s Cardiovasc Resolve 2018-02-18 Darya kill ular d 01-26 13:35:00 (Tejas) deficit: pt 09:45: Analilia 00 [id number] Respiratory dyspnea Respirator Resolve 2018-04-24 Darya present y d 01-26 15:19:00 (Tejas) 09:45: Analilia 00 [id number] Respiratory CPAP Respirator Resolve 2018-04-24 Quality treatments y d 9-15 15:19:00 Realtime7 in home 09:45: 00 Endo/Sen diabetic Endo/Sen Resolve 2018-02-25 Darya foot care d 9-15 14:00:00 (Tejas) 09:45: Billingsley [id number] Integument surgical Integument Resolve 2018-03-25 Darya wound d 9-15 14:35:00 (Tejas) present 09:45: Billingsley [id number] Integument skin Integument Resolve 2018-03-25 Darya integrity d 9-15 14:35:00 (Tejas) risk 09:45: Billingsley [id number] Integument other wound Integument Resolve 2018-03-25 Quality present d 9-15 14:35:00 Realtime7 09:45: 00 Nutrition nutritional Nutrition Resolve 2018-03-15 Darya restriction d 9-15 15:24:00 (Tejas) s 09:45: Billingsley [id number] Elimination urinary Eliminatio Resolve 2018-03-01 Darya incontinenc n d 9-15 09:00:00 (Tejas) e 09:45: Billingsley 00 [id number] Neuro confusion Neuro/Emot Resolve 2018-11-11 Darya present ion d 9-15 14:00:00 (Tejas) 09:45: Billingsley 00 [id number] Neuro anxiety Neuro/Emot Resolve 2018-11-11 Darya present ion d 9-15 14:00:00 (Tejas) 09:45: Billingsley [id number] Activity ADL Activity Resolve 2018-11-11 Darya assistance d 9-15 14:00:00 (Tejas) required 09:45: Billingsley [id number] Safety sanitation Safety Resolve 2018-10-25 Darya hazards d 9-15 15:10:00 (Tejas) present 09:45: Billingsley [id number] Safety fall risk Safety Resolve 2018-10-25 Darya factor d 9-15 15:10:00 (Tejas) present 09:45: Billingsley [id number] Safety risk for Safety Resolve 2018-10-25 Darya hospitaliza d 9-15 15:10:00 (Tejas) tion 09:45: Billingsley 00 [id number] Safety can be left Safety Resolve 2018-11-11 Darya alone for d 9-15 14:00:00 (Tejas) only short 09:45: Billingsley periods 00 [id number] Medication oral med Meds Resolve 2018-03-15 Darya assistance d 9-15 15:24:00 (Tejas) required 09:45: Billingsley [id number] Medication knowledge/s Meds Resolve 2018-03-15 Darya kill d 9-15 15:24:00 (Tejas) deficit: pt 09:45: Billingsley [id number] Medication potential Meds Resolve 2018-03-15 Darya clinically d 9-15 15:24:00 (Tejas) significant 09:45: Billingsley medication [id number] issue Musculoskel transfer Musculoske Unknown Quality etal assistance letal 01-26 Realtime7 required 09:45: 00 Sensory impaired Sensory Resolve 2018-11-11 Quality verbal d 917 14:00:00 Realtime7 communicati 14:00: on 24 Endo/Sen glucose Endo/Sen Resolve 2018-02-25 Cherrise tolerance d 01-31 14:00:00 Olya problem 13:25: [id number] 00 Nutrition knowledge/s Nutrition Resolve 2018-03-15 Cherrise kill d 01-31 15:24:00 Olya deficit: pt 13:25: [id number] 00 Elimination urinary Eliminatio Resolve 2018-03-01 Cherrise urgency n d 01-31 09:00:00 [place] 13:25: [id number] 00 Elimination urinary Eliminatio Resolve 2018-03-01 Cherrise frequency n d 01-31 09:00:00 Olya 13:25: [id number] 00 Neuro impaired Neuro/Emot Resolve 2018-11-11 Cherrise decision-ma ion d 01-31 14:00:00 [place] wilver 13:25: [id number] 00 Musculoskel requires Musculoske Unknown Cherrise etal human letal 9-20 [place] assist to 13:25: [id number] leave home 00 Cardio hypertensio Cardiovasc Resolve 2018-02-18 Cherrise n ular d 9-24 13:35:00 [place] 13:05: [id number] 00 Musculoskel requires Musculoske Unknown 2017-05 Cherrise etal human letal 0-05 [place] assist to 13:40: [id number] leave home 00 Cardio hypertensio Cardiovasc Resolve 2017-052018-03-25 Cherrise n ular d 0-12 14:35:00 Olya 12:45: [id number] 00 Respiratory smoker Respirator Resolve 2017-052018-04-24 Cherrise y d 0-12 15:19:00 [place] 12:45: [id number] 00 Musculoskel transfer Musculoske Unknown 2017-05 Cherrise etal assistance letal 0-12 [place] required 12:45: [id number] 00 Endo/Sen glucose Endo/Sen Resolve 2017-052018-03-22 Cherrise tolerance d 0-22 15:29:00 [place] problem 13:50: [id number] 00 Elimination urinary Eliminatio Resolve 2017-052018-03-15 Cherrise incontinenc n d 0-22 15:24:00 Olya e 13:50: [id number] 00 Elimination urinary Eliminatio Resolve 2017-052018-03-15 Cherrise urgency n d 0-22 15:24:00 Olya 13:50: [id number] 00 Elimination urinary Eliminatio Resolve 2017-052018-03-15 Cherrise frequency n d 0-22 15:24:00 [place] 13:50: [id number] 00 Endo/Sen glucose Endo/Sen Resolve 2017-052018-03-22 Cherrise testing d 0-29 15:29:00 Olya dependence 13:30: [id number] 00 Nutrition knowledge/s Nutrition Resolve 2017-052018-03-25 Cherrise kill d 1-05 14:35:00 Olya deficit: pt 11:30: [id number] 00 Elimination urinary Eliminatio Resolve 2017-052018-03-22 Cherrise frequency n d 1-05 15:29:00 Olya 11:30: [id number] 00 Pain frequent Pain Mgmt Resolve 2017-052018-06-14 Stephany pain d 05-25 14:43:00 [facility]os 14:35: h [id number] 00 Nutrition nutritional Nutrition Resolve 2017-052018-03-25 Stephany restriction d 05-25 14:35:00 Celina-Zos s 14:35: h [id number] 00 Elimination urinary Eliminatio Resolve 2017-052018-04-05 Stephany incontinenc n d 05-25 14:45:00 [place] e 14:35: h [id number] 00 Elimination urinary Eliminatio Resolve 2017-052018-04-05 Stephany frequency n d 05-25 14:45:00 Celina-Zos 14:35: h [id number] 00 Musculoskel requires Musculoske Unknown 2017-05 Stephany etal special letal 05-25 Barber-[facility] transportat 14:35: h [id number] ion 00 Cardio hypertensio Cardiovasc Resolve 2017-052018-04-12 Cherrise n ular d 05-27 13:46:00 [place] 12:00: [id number] 00 Endo/Sen glucose Endo/Sen Resolve 2017-052018-04-05 Cherrise tolerance d 05-27 14:45:00 Olya problem 12:00: [id number] 00 Elimination urinary Eliminatio Resolve 2017-052018-04-05 Cherrise urgency n d 06-01 14:45:00 [place] 12:45: [id number] 00 Elimination urinary Eliminatio Resolve 2017-052018-04-12 Cherrise urgency n d 06-08 13:46:00 Olya 10:55: [id number] 00 Elimination urinary Eliminatio Resolve 2017-052018-04-12 Cherrise frequency n d 06-08 13:46:00 [place] 10:55: [id number] 00 Endo/Sen glucose Endo/Sen Resolve 2017-052018-04-24 Cherrise tolerance d 06-16 15:19:00 [place] problem 12:20: [id number] 00 Elimination urinary Eliminatio Resolve 2017-052018-04-24 Cherrise frequency n d 06-16 15:19:00 [place] 12:20: [id number] 00 Cardio hypertensio Cardiovasc Resolve 2017-052018-04-24 Cherrise n ular d 2- 15:19:00 [place] 10:35: [id number] 00 Elimination urinary Eliminatio Resolve 2017-052018-04-24 Cherrise urgency n d 2 15:19:00 Olya 10:35: [id number] 00 Elimination urinary Eliminatio Resolve 2017-052018-04-24 Stephany incontinenc n d 06-25 15:19:00 [place] e 15:19: h [id number] 00 Cardio hypertensio Cardiovasc Resolve 2017-052018-06-07 Cherrise n ular d 2-14 13:31:00 [place] 13:15: [id number] 00 Respiratory dyspnea Respirator Active 2017-05 Cherrise present y 06-27 [place] 13:15: [id number] 00 Respiratory CPAP Respirator Active 2017-05 Cherrise treatments y 06-27 Olya in home 13:15: [id number] 00 Respiratory smoker Respirator Resolve 2017-052018-06-03 Cherrise y d 2-14 14:08:00 [place] 13:15: [id number] 00 Elimination urinary Eliminatio Resolve 2017-052018-05-31 Cherrise urgency n d 2-14 14:21:00 Olya 13:15: [id number] 00 Elimination urinary Eliminatio Resolve 2017-052018-05-31 Cherrise frequency n d 2-14 14:21:00 Olya 13:15: [id number] 00 Elimination diarrhea Eliminatio Resolve 2017-052018-05-31 Cherrise n d 2-14 14:21:00 [place] 13:15: [id number] 00 Endo/Sen glucose Endo/Sen Resolve 2017-052018-05-31 Cherrise tolerance d 2-24 14:21:00 [place] problem 13:10: [id number] 00 Infection s/s of Infection Active Stephany infection 05-31 [facility]os 14:21: h [id number] 00 Respiratory smoker Respirator Resolve 2018-09-13 Cherrise y d 06-05 13:20:00 Olya 13:35: [id number] 00 Endo/Sen glucose Endo/Sen Resolve 2018-06-21 Cherrise tolerance d 06-05 10:26:00 [place] problem 13:35: [id number] 00 Elimination urinary Eliminatio Resolve 2018-06-14 Cherrise urgency n d 06-05 14:43:00 [place] 13:35: [id number] 00 Elimination urinary Eliminatio Resolve 2018-06-14 Cherrise frequency n d 06-05 14:43:00 [place] 13:35: [id number] 00 Cardio hypertensio Cardiovasc Resolve 2018-09-13 Cherrise n ular d 06-10 13:20:00 Olya 11:00: [id number] 00 Elimination urinary Eliminatio Resolve 2018-06-21 Cherrise urgency n d 06-19 10:26:00 [place] 10:50: [id number] 00 Elimination urinary Eliminatio Resolve 2018-06-21 Stephany frequency n d 06-21 10:26:00 Celina-Zos 10:26: h [id number] 00 Endo/Sen glucose Endo/Sen Resolve 2018-06-28 Cherrise tolerance d 2- 14:32:00 [place] problem 11:25: [id number] 00 Elimination urinary Eliminatio Resolve 2018-06-28 Cherrise urgency n d 2- 14:32:00 Olya 11:25: [id number] 00 Elimination urinary Eliminatio Resolve 2018-06-28 Cherrise frequency n d 2- 14:32:00 [place] 11:50: [id number] 00 Endo/Sen glucose Endo/Sen Resolve 2018-07-12 Cherrise tolerance d 07-03 13:43:00 [place] problem 11:50: [id number] 00 Elimination urinary Eliminatio Resolve 2018-07-12 Cherrise urgency n d 07-08 13:43:00 [place] 12:30: [id number] 00 Neuro depressive Neuro/Emot Resolve 2018-11-11 Cherrise feelings ion d 2 14:00:00 Olya present 12:30: [id number] 00 Elimination urinary Eliminatio Resolve 2018-07-12 Cherrise frequency n d 2-27 13:43:00 Olya 10:45: [id number] 00 Elimination urinary Eliminatio Resolve 2018-07-24 Stephany frequency n d 3-06 12:48:00 [place] 11:53: h [id number] 00 Endo/Sen glucose Endo/Sen Resolve 2018-09-18 Cherrise tolerance d 3-11 10:59:00 Olya problem 10:15: [id number] 00 Elimination urinary Eliminatio Resolve 2018-07-24 Cherrise urgency n d 3-11 12:48:00 Olya 10:15: [id number] 00 Pain frequent Pain Mgmt Resolve 2018-07-24 Stephany pain d 3-13 12:48:00 [place] 12:48: h [id number] 00 Elimination urinary Eliminatio Resolve 2018-09-13 Cherrise urgency n d 3-15 13:20:00 Olya 12:40: [id number] 00 Musculoskel requires Musculoske Unknown Cherrise etal human letal 3-15 Olya assist to 12:40: [id number] leave home 00 Respiratory lung sounds Respirator Resolve 2018-09-13 Christel deficit y d - 13:20:00 Jeb 15:19: [id number] 00 Safety fire risk Safety Resolve 2018-10-25 Christel present d 3 15:10:00 Jeb 15:19: [id number] 00 Elimination urinary Eliminatio Resolve 2018-09-13 Cherrise frequency n d 4-08 13:20:00 [place] 12:50: [id number] 00 Integument surgical Integument Active Cherrise wound 4-24 Olya present 11:45: [id number] 00 Integument skin Integument Active Cherrise integrity 4-24 Olya risk 11:45: [id number] 00 Integument other wound Integument Active Cherrise present 4- [place] 11:45: [id number] 00 Nutrition knowledge/s Nutrition Active Cherrise kill 09-04 [place] deficit: pt 11:45: [id number] 00 Nutrition nutritional Nutrition Active Cherrise restriction 09-04 Olya s 11:45: [id number] 00 Musculoskel transfer Musculoske Resolve 2018-10-25 Cherrise etal assistance letal d 09-04 15:10:00 Olya required 11:45: [id number] 00 Musculoskel requires Musculoske Resolve 2018-10-25 Cherrise etal human letal d 09-04 15:10:00 Olya assist to 11:45: [id number] leave home 00 Elimination constipatio Eliminatio Resolve 2018-09-13 Cherrise n n d 09-09 13:20:00 [place] 14:10: [id number] 00 Pain frequent Pain Mgmt Resolve 2018-10-25 Madelaine pain d 08 [facility]:10[facility] [id number] 00 Respiratory smoker Respirator Resolve 2018-10-25 Cherrise y d - 15:10:00 [place] 11:50: [id number] 00 Elimination urinary Eliminatio Resolve 2018-10-25 Cherrise urgency n d - 15:10:00 Olya 11:50: [id number] 00 Cardio hypertensio Cardiovasc Resolve 2018-11-11 Cherrise n ular d 10-09 14:00:00 Olya 11:20: [id number] 00 Endo/Sen glucose Endo/Sen Resolve 2018-10-25 Cherrise tolerance d 10-09 15:10:00 [place] problem 11:20: [id number] 00 Elimination urinary Eliminatio Resolve 2018-10-25 Conchita frequency n d 10-16 15:10:00 Shimon, 14:00: [id number] 00 Cardio edema Cardiovasc Resolve 2018-11-11 Cherrise ular d 6- 14:00:00 Olya 11:00: [id number] 00 Safety risk for Safety Resolve 2018-11-01 Conchita hospitaliza d 6-17 14:00:00 daniel Robins 14:30: [id number] 00 Respiratory smoker Respirator Resolve 2018-11-11 Cherrise y d 6-19 14:00:00 Olya 10:25: [id number] 00 Endo/Sen glucose Endo/Sen Resolve 2018-11-11 Cherrise tolerance d 6-19 14:00:00 Olya problem 10:25: [id number] 00 Elimination urinary Eliminatio Resolve 2018-11-11 Cherrise urgency n d 6-19 14:00:00 Olya 10:25: [id number] 00 Elimination urinary Eliminatio Resolve 2018-11-11 Cherrise frequency n d 6-19 14:00:00 Olya 10:25: [id number] 00 Musculoskel requires Musculoske Resolve 2018-12-23 Cherrise etal human letal d 6- 11:00:00 Olya assist to 10:25: [id number] leave home 00 Musculoskel requires Musculoske Resolve 2018-12-23 Kerry etal special letal d 6- 11:00:00 Maria Antonia transportat 18:30: [id number] ion 00 Safety fall risk Safety Resolve 2018-12-13 Cherrise factor d 7- 14:40:00 [place] present 14:45: [id number] 00 Neuro impaired Neuro/Emot Resolve 2018-12-13 Madelaine mullen ion d 7- 14:40:00 Jose Angel pettit 14:00: [id number] 00 Safety risk for Safety Resolve 2018-12-13 Madelaine garciaiza d 7-10 14:40:00 Ingrahm tion 14:00: [id number] 00 Cardio edema Cardiovasc Resolve 2018-12-23 Cherrise ular d 7-15 11:00:00 Olya 11:00: [id number] 00 Respiratory smoker Respirator Resolve 2018-12-23 Cherrise y d 7-15 11:00:00 [place] 11:00: [id number] 00 Endo/Sen glucose Endo/Sen Resolve 2019-01-01 Cherrise tolerance d 7-15 15:00:00 [place] problem 11:00: [id number] 00 Elimination urinary Eliminatio Resolve 2018-12-13 Cherrise urgency n d 7-15 14:40:00 Olya 11:00: [id number] 00 Safety sanitation Safety Resolve 2018-12-13 Cherrise hazards d 7-15 14:40:00 Olya present 11:00: [id number] 00 Elimination urinary Eliminatio Resolve 2018-12-13 Cherrise frequency n d 7 14:40:00 [place] 11:15: [id number] 00 Neuro depressive Neuro/Emot Resolve 2019-01-17 Cherrise feelings ion d 12-02 15:25:00 Olya present 11:15: [id number] 00 Cardio hypertensio Cardiovasc Resolve 2018-12-23 Cherrise n ular d 12-04 11:00:00 [place] 14:40: [id number] 00 Musculoskel knowledge/s Musculoske Resolve 2018-12-23 Cherrise etal kill letal d 12-16 11:00:00 Olya deficit: cg 14:15: [id number] 00 Elimination urinary Eliminatio Resolve 2018-12-23 Cherrise urgency n d 12-20 11:00:00 Olya 10:10: [id number] 00 Neuro depressive Neuro/Emot Unknown Cherrise feelings ion 12-20 [place] present 10:10: [id number] 00 Neuro impaired Neuro/Emot Resolve 2019-01-17 Cherrise decision-ma ion d 12-20 15:25:00 Olya wilver 10:10: [id number] 00 Safety risk for Safety Resolve 2018-12-23 Cherrise hospitaliza d 12-20 11:00:00 [place] tion 10:10: [id number] 00 Sensory impaired Sensory Resolve 2019-01-17 Madelaine verbal d 12-23 15:25:00 Ingrahm communicati 11:00: [id number] on 00 Cardio hypertensio Cardiovasc Resolve 2019-01-01 Cherrise n ular d 8-14 15:00:00 [place] 12:00: [id number] 00 Respiratory smoker Respirator Resolve 2019-01-01 Cherrise y d 8-14 15:00:00 Olya 12:00: [id number] 00 Elimination urinary Eliminatio Resolve 2019-01-01 Cherrise urgency n d 8-14 15:00:00 Olya 12:00: [id number] 00 Neuro anxiety Neuro/Emot Resolve 2019-01-17 Cherrise present ion d 8 15:25:00 [place] 12:00: [id number] 00 Safety risk for Safety Resolve 2019-01-01 Cherrise hospitaliza d 8 15:00:00 [place] tion 12:00: [id number] 00 Musculoskel requires Musculoske Unknown Cherrise etal human letal 12-25 [place] assist to 12:00: [id number] leave home 00 Respiratory smoker Respirator Resolve 2019-01-17 Cherrise y d 01-03 15:25:00 Olya 11:45: [id number] 00 Elimination urinary Eliminatio Resolve 2019-01-17 Cherrise urgency n d 01-03 15:25:00 Olya 11:45: [id number] 00 Safety fall risk Safety Resolve 2019-01-06 Cherrise factor d 01-03 12:25:00 Olya present 11:45: [id number] 00 Safety risk for Safety Resolve 2019-02-12 Cherrise hospitaliza d 01-03 15:15:00 [place] tion 11:45: [id number] 00 Neuro memory Neuro/Emot Active Cherrise deficit ion 01-13 [place] needing 11:20: [id number] supervision 00 Elimination urinary Eliminatio Resolve 2019-01-17 Madelaine incontinenc n d 01-17 15:25:00 Ingrahm e 15:25: [id number] 00 Safety fall risk Safety Resolve 2019-01-17 Desiree factor d 01-17 15:25:00 Rashid present 15:25: [id number] 00 Cardio hypertensio Cardiovasc Resolve 2019-01-24 Narciso aguilar ular d 01-20 09:00:00 [place] 11:15: [id number] 00 Safety sanitation Safety Resolve 2019-02-12 Cherrise hazards d 01-20 15:15:00 [place] present 11:15: [id number] 00 Respiratory smoker Respirator Resolve 2019-01-24 Madelaine y d 01-24 09:00:00 Ingrahm 09:00: [id number] 00 Musculoskel transfer Musculoske Active Cherrise etal assistance letal 01-29 Olya required 13:25: [id number] 00 Musculoskel requires Musculoske Active Cherrise etal human letal 01-29 [place] assist to 13:25: [id number] leave home 00 Musculoskel requires Musculoske Active Cherrise etal special letal 01-29 [place] transportat 13:25: [id number] ion 00 Respiratory smoker Respirator Resolve 2019-02-05 Cherrise y d 02-03 15:10:00 [place] 10:00: [id number] 00 Elimination urinary Eliminatio Resolve 2019-02-12 Cherrise urgency n d 02-03 15:15:00 [place] 10:00: [id number] 00 Safety fall risk Safety Resolve 2019-02-12 Cherrise factor d 9 15:15:00 Olya present 11:15: [id number] 00 Cardio hypertensio Cardiovasc Resolve 2018-052019-02-19 Narciso hernandez d 0-04 14:00:00 [place] 11:50: [id number] 00 Respiratory smoker Respirator Resolve 2018-052019-02-19 Narciso y d 0-07 14:00:00 [place] 11:30: [id number] 00 Safety risk for Safety Resolve 2018-052019-03-12 Madelaine navarrete d 0-09 15:00:00 Ingrahm tion 14:00: [id number] 00 Cardio hypertensio Cardiovasc Resolve 2018-052019-03-19 Cherrise n ular d 0-18 14:00:00 [place] 12:30: [id number] 00 Respiratory smoker Respirator Resolve 2018-052019-03-12 Cherrise y d 0-18 15:00:00 [place] 12:30: [id number] 00 Elimination urinary Eliminatio Resolve 2018-052019-03-12 Cherrise urgency n d 0-18 15:00:00 Olya 12:30: [id number] 00 Respiratory smoker Respirator Resolve 2018-052019-03-19 Cherrise y d 04 14:00:00 Olya 09:40: [id number] 00 Elimination urinary Eliminatio Resolve 2018-052019-03-19 Cherrise urgency n d 05-17 14:00:00 Olya 09:40: [id number] 00 Safety risk for Safety Active 2018-05 Cherrise hospitaliza 05-17 [place] tion 09:40: [id number] 00 Safety fall risk Safety Active 2018-05 Madelaine factor 05-19 Ingrahm present 14:00: [id number] 00 Respiratory smoker Respirator Active 2018-05 Cherrise y 05-28 [place] 10:55: [id number] 00 Elimination urinary Eliminatio Active 2018-05 Cherrise incontinenc n 05-28 [place] e 10:55: [id number] 00 Elimination urinary Eliminatio Active 2018-05 Cherrise urgency n 05-28 [place] 10:55: [id number] 00 Neuro depressive Neuro/Emot Active 2018-05 Cherrise feelings ion 05-28 [place] present 10:55: [id number] 00 Neuro impaired Neuro/Emot Active 2018-05 Cherrise decision-ma ion 05-28 [place] wilver 10:55: [id number] 00 Safety sanitation Safety Active 2018-05 Cherrise hazards 05-28 [place] present 10:55: [id number] 00 Allergies, Adverse Reactions, Alerts Allergy Allergy [...] n 20 mg n 20 mg -15 MD,[place] tablet tablet furosemide furosemide 2017- No [place] [...] Unknown Unknown 10 mg 10 mg 01-26 MD,[place] tablet tablet lisinopril lisinopril 2017-05- No [place] Unknown Unknown 20 mg 20 mg 0-15 MD,[place] tablet tablet oxyCODONE 5 oxyCODONE 5 No Rafita Unknown Unknown mg tablet mg tablet 2-07 ,[place] lisinopril lisinopril 2018- No Rafita Unknown Unknown 20 mg 20 mg 06-28-20 ,[facility] tablet tablet lisinopril lisinopril No Rafita Unknown Unknown 30 mg 30 mg 2-15 MD,[facility] tablet tablet hydroCHLORO hydroCHLORO No Rafita Unknown Unknown thiazide 50 thiazide 50 6-15 MD,[facility] mg tablet mg tablet nystatin nystatin No [...]
--- OUTSIDE RECORDS SUMMARY | 2019-05-09 12:31 | XMS REPORT ---
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 [id number] causing causing diseases diseases classd classd elswhr elswhr Type 2 Type 2 Diagnosis Active Madelaine diabetes diabetes 05-14 [facility] mellitus mellitus [id number] with with diabetic diabetic neuropathy, neuropathy, unsp unsp Essential Essential Diagnosis Active Madelaine (primary) (primary) 05-14 [facility] hypertensio hypertensio [id number] n n Chronic Chronic Diagnosis Active Madelaine obstructive obstructive 05-14 [facility] pulmonary pulmonary [id number] disease, disease, unspecified unspecified G47.33 G47.33 Diagnosis Active Madelaine 05-14 Ingrahm [id number] Pain frequent Pain Mgmt Resolve 2018-06-14 Darya pain d 01-26 14:43:00 (Tejas) 09:45: Analilia 00 [id number] Cardio edema Cardiovasc Resolve 2018-02-18 Darya ular d 01-26 13:35:00 (Tejas) 09:45: Analilia 00 [id number] Cardio knowledge/s Cardiovasc Resolve 2018-02-18 Darya kill ular d 01-26 13:35:00 (Tejas) deficit: pt 09:45: Analilia 00 [id number] Respiratory dyspnea Respirator Resolve 2018-04-24 Darya present y d 01-26 15:19:00 (Tejas) 09:45: Analilia 00 [id number] Respiratory CPAP Respirator Resolve 2018-04-24 Quality treatments y d 9-15 15:19:00 Realtime7 in home 09:45: 00 Endo/Sen diabetic Endo/Sen Resolve 2018-02-25 Darya foot care d 9-15 14:00:00 (Tejas) 09:45: Billingsley [id number] Integument surgical Integument Resolve 2018-03-25 Darya wound d 9-15 14:35:00 (Tejas) present 09:45: Billingsley [id number] Integument skin Integument Resolve 2018-03-25 Darya integrity d 9-15 14:35:00 (Tejas) risk 09:45: Billingsley [id number] Integument other wound Integument Resolve 2018-03-25 Quality present d 9-15 14:35:00 Realtime7 09:45: 00 Nutrition nutritional Nutrition Resolve 2018-03-15 Darya restriction d 9-15 15:24:00 (Tejas) s 09:45: Billingsley [id number] Elimination urinary Eliminatio Resolve 2018-03-01 Darya incontinenc n d 9-15 09:00:00 (Tejas) e 09:45: Billingsley 00 [id number] Neuro confusion Neuro/Emot Resolve 2018-11-11 Darya present ion d 9-15 14:00:00 (Tejas) 09:45: Billingsley 00 [id number] Neuro anxiety Neuro/Emot Resolve 2018-11-11 Darya present ion d 9-15 14:00:00 (Tejas) 09:45: Billingsley [id number] Activity ADL Activity Resolve 2018-11-11 Darya assistance d 9-15 14:00:00 (Tejas) required 09:45: Billingsley [id number] Safety sanitation Safety Resolve 2018-10-25 Darya hazards d 9-15 15:10:00 (Tejas) present 09:45: Billingsley [id number] Safety fall risk Safety Resolve 2018-10-25 Darya factor d 9-15 15:10:00 (Tejas) present 09:45: Billingsley [id number] Safety risk for Safety Resolve 2018-10-25 Darya hospitaliza d 9-15 15:10:00 (Tejas) tion 09:45: Billingsley 00 [id number] Safety can be left Safety Resolve 2018-11-11 Darya alone for d 9-15 14:00:00 (Tejas) only short 09:45: Billingsley periods 00 [id number] Medication oral med Meds Resolve 2018-03-15 Darya assistance d 9-15 15:24:00 (Tejas) required 09:45: Billingsley [id number] Medication knowledge/s Meds Resolve 2018-03-15 Darya kill d 9-15 15:24:00 (Tejas) deficit: pt 09:45: Billingsley [id number] Medication potential Meds Resolve 2018-03-15 Darya clinically d 9-15 15:24:00 (Tejas) significant 09:45: Billingsley medication [id number] issue Musculoskel transfer Musculoske Unknown Quality etal assistance letal 01-26 Realtime7 required 09:45: 00 Sensory impaired Sensory Resolve 2018-11-11 Quality verbal d 917 14:00:00 Realtime7 communicati 14:00: on 24 Endo/Sen glucose Endo/Sen Resolve 2018-02-25 Cherrise tolerance d 01-31 14:00:00 Olya problem 13:25: [id number] 00 Nutrition knowledge/s Nutrition Resolve 2018-03-15 Cherrise kill d 01-31 15:24:00 Olya deficit: pt 13:25: [id number] 00 Elimination urinary Eliminatio Resolve 2018-03-01 Cherrise urgency n d 01-31 09:00:00 [place] 13:25: [id number] 00 Elimination urinary Eliminatio Resolve 2018-03-01 Cherrise frequency n d 01-31 09:00:00 Olya 13:25: [id number] 00 Neuro impaired Neuro/Emot Resolve 2018-11-11 Cherrise decision-ma ion d 01-31 14:00:00 [place] wilver 13:25: [id number] 00 Musculoskel requires Musculoske Unknown Cherrise etal human letal 9-20 [place] assist to 13:25: [id number] leave home 00 Cardio hypertensio Cardiovasc Resolve 2018-02-18 Cherrise n ular d 9-24 13:35:00 [place] 13:05: [id number] 00 Musculoskel requires Musculoske Unknown 2017-05 Cherrise etal human letal 0-05 [place] assist to 13:40: [id number] leave home 00 Cardio hypertensio Cardiovasc Resolve 2017-052018-03-25 Cherrise n ular d 0-12 14:35:00 Olya 12:45: [id number] 00 Respiratory smoker Respirator Resolve 2017-052018-04-24 Cherrise y d 0-12 15:19:00 [place] 12:45: [id number] 00 Musculoskel transfer Musculoske Unknown 2017-05 Cherrise etal assistance letal 0-12 [place] required 12:45: [id number] 00 Endo/Sen glucose Endo/Sen Resolve 2017-052018-03-22 Cherrise tolerance d 0-22 15:29:00 [place] problem 13:50: [id number] 00 Elimination urinary Eliminatio Resolve 2017-052018-03-15 Cherrise incontinenc n d 0-22 15:24:00 Olya e 13:50: [id number] 00 Elimination urinary Eliminatio Resolve 2017-052018-03-15 Cherrise urgency n d 0-22 15:24:00 Olya 13:50: [id number] 00 Elimination urinary Eliminatio Resolve 2017-052018-03-15 Cherrise frequency n d 0-22 15:24:00 [place] 13:50: [id number] 00 Endo/Sen glucose Endo/Sen Resolve 2017-052018-03-22 Cherrise testing d 0-29 15:29:00 Olya dependence 13:30: [id number] 00 Nutrition knowledge/s Nutrition Resolve 2017-052018-03-25 Cherrise kill d 1-05 14:35:00 Olya deficit: pt 11:30: [id number] 00 Elimination urinary Eliminatio Resolve 2017-052018-03-22 Cherrise frequency n d 1-05 15:29:00 Olya 11:30: [id number] 00 Pain frequent Pain Mgmt Resolve 2017-052018-06-14 Stephany pain d 05-25 14:43:00 [place] 14:35: h [id number] 00 Nutrition nutritional Nutrition Resolve 2017-052018-03-25 Stephany restriction d 05-25 14:35:00 [place] s 14:35: h [id number] 00 Elimination urinary Eliminatio Resolve 2017-052018-04-05 Stephany incontinenc n d 05-25 14:45:00 [place] e 14:35: h [id number] 00 Elimination urinary Eliminatio Resolve 2017-052018-04-05 Stephany frequency n d 05-25 14:45:00 [place] 14:35: h [id number] 00 Musculoskel requires Musculoske Unknown 2017-05 Stephany etal special letal 05-25 [facility] transportat 14:35: h [id number] ion 00 Cardio hypertensio Cardiovasc Resolve 2017-052018-04-12 Cherrise n ular d 05-27 13:46:00 [place] 12:00: [id number] 00 Endo/Sen glucose Endo/Sen Resolve 2017-052018-04-05 Cherrise tolerance d 05-27 14:45:00 Olya problem 12:00: [id number] 00 Elimination urinary Eliminatio Resolve 2017-052018-04-05 Cherrise urgency n d 06-01 14:45:00 [place] 12:45: [id number] 00 Elimination urinary Eliminatio Resolve 2017-052018-04-12 Cherrise urgency n d 06-08 13:46:00 Olya 10:55: [id number] 00 Elimination urinary Eliminatio Resolve 2017-052018-04-12 Cherrise frequency n d 06-08 13:46:00 [place] 10:55: [id number] 00 Endo/Sen glucose Endo/Sen Resolve 2017-052018-04-24 Cherrise tolerance d 06-16 15:19:00 [place] problem 12:20: [id number] 00 Elimination urinary Eliminatio Resolve 2017-052018-04-24 Cherrise frequency n d 06-16 15:19:00 [place] 12:20: [id number] 00 Cardio hypertensio Cardiovasc Resolve 2017-052018-04-24 Cherrise n ular d 2- 15:19:00 [place] 10:35: [id number] 00 Elimination urinary Eliminatio Resolve 2017-052018-04-24 Cherrise urgency n d 2 15:19:00 Olya 10:35: [id number] 00 Elimination urinary Eliminatio Resolve 2017-052018-04-24 Stephany incontinenc n d 06-25 15:19:00 [place] e 15:19: h [id number] 00 Cardio hypertensio Cardiovasc Resolve 2017-052018-06-07 Cherrise n ular d 2-14 13:31:00 [place] 13:15: [id number] 00 Respiratory dyspnea Respirator Active 2017-05 Cherrise present y 06-27 [place] 13:15: [id number] 00 Respiratory CPAP Respirator Active 2017-05 Cherrise treatments y 06-27 Olya in home 13:15: [id number] 00 Respiratory smoker Respirator Resolve 2017-052018-06-03 Cherrise y d 2-14 14:08:00 [place] 13:15: [id number] 00 Elimination urinary Eliminatio Resolve 2017-052018-05-31 Cherrise urgency n d 2-14 14:21:00 Olya 13:15: [id number] 00 Elimination urinary Eliminatio Resolve 2017-052018-05-31 Cherrise frequency n d 2-14 14:21:00 Olya 13:15: [id number] 00 Elimination diarrhea Eliminatio Resolve 2017-052018-05-31 Cherrise n d 2-14 14:21:00 [place] 13:15: [id number] 00 Endo/Sen glucose Endo/Sen Resolve 2017-052018-05-31 Cherrise tolerance d 2-24 14:21:00 [place] problem 13:10: [id number] 00 Infection s/s of Infection Active Stephany infection 05-31 [facility] 14:21: h [id number] 00 Respiratory smoker Respirator Resolve 2018-09-13 Cherrise y d 06-05 13:20:00 Olya 13:35: [id number] 00 Endo/Sen glucose Endo/Sen Resolve 2018-06-21 Cherrise tolerance d 06-05 10:26:00 [place] problem 13:35: [id number] 00 Elimination urinary Eliminatio Resolve 2018-06-14 Cherrise urgency n d 06-05 14:43:00 [place] 13:35: [id number] 00 Elimination urinary Eliminatio Resolve 2018-06-14 Cherrise frequency n d 06-05 14:43:00 [place] 13:35: [id number] 00 Cardio hypertensio Cardiovasc Resolve 2018-09-13 Cherrise n ular d 06-10 13:20:00 Olya 11:00: [id number] 00 Elimination urinary Eliminatio Resolve 2018-06-21 Cherrise urgency n d 06-19 10:26:00 [place] 10:50: [id number] 00 Elimination urinary Eliminatio Resolve 2018-06-21 Stephany frequency n d 06-21 10:26:00 [place] 10:26: h [id number] 00 Endo/Sen glucose Endo/Sen Resolve 2018-06-28 Cherrise tolerance d 2- 14:32:00 [place] problem 11:25: [id number] 00 Elimination urinary Eliminatio Resolve 2018-06-28 Cherrise urgency n d 2- 14:32:00 Olya 11:25: [id number] 00 Elimination urinary Eliminatio Resolve 2018-06-28 Cherrise frequency n d 2- 14:32:00 [place] 11:50: [id number] 00 Endo/Sen glucose Endo/Sen Resolve 2018-07-12 Cherrise tolerance d 07-03 13:43:00 [place] problem 11:50: [id number] 00 Elimination urinary Eliminatio Resolve 2018-07-12 Cherrise urgency n d 07-08 13:43:00 [place] 12:30: [id number] 00 Neuro depressive Neuro/Emot Resolve 2018-11-11 Cherrise feelings ion d 2 14:00:00 Olya present 12:30: [id number] 00 Elimination urinary Eliminatio Resolve 2018-07-12 Cherrise frequency n d 2-27 13:43:00 Olya 10:45: [id number] 00 Elimination urinary Eliminatio Resolve 2018-07-24 Stephany frequency n d 3-06 12:48:00 [place] 11:53: h [id number] 00 Endo/Sen glucose Endo/Sen Resolve 2018-09-18 Cherrise tolerance d 3-11 10:59:00 Olya problem 10:15: [id number] 00 Elimination urinary Eliminatio Resolve 2018-07-24 Cherrise urgency n d 3-11 12:48:00 Olya 10:15: [id number] 00 Pain frequent Pain Mgmt Resolve 2018-07-24 Stephany pain d 3-13 12:48:00 [place] 12:48: h [id number] 00 Elimination urinary Eliminatio Resolve 2018-09-13 Cherrise urgency n d 3-15 13:20:00 Olya 12:40: [id number] 00 Musculoskel requires Musculoske Unknown Cherrise etal human letal 3-15 Olya assist to 12:40: [id number] leave home 00 Respiratory lung sounds Respirator Resolve 2018-09-13 Christel deficit y d - 13:20:00 Jeb 15:19: [id number] 00 Safety fire risk Safety Resolve 2018-10-25 Christel present d 3 15:10:00 Jeb 15:19: [id number] 00 Elimination urinary Eliminatio Resolve 2018-09-13 Cherrise frequency n d 4-08 13:20:00 [place] 12:50: [id number] 00 Integument surgical Integument Active Cherrise wound 4-24 Olya present 11:45: [id number] 00 Integument skin Integument Active Cherrise integrity 4-24 Olya risk 11:45: [id number] 00 Integument other wound Integument Active Cherrise present 4- [place] 11:45: [id number] 00 Nutrition knowledge/s Nutrition Active Cherrise kill 09-04 [place] deficit: pt 11:45: [id number] 00 Nutrition nutritional Nutrition Active Cherrise restriction 09-04 Olya s 11:45: [id number] 00 Musculoskel transfer Musculoske Resolve 2018-10-25 Cherrise etal assistance letal d 09-04 15:10:00 Olya required 11:45: [id number] 00 Musculoskel requires Musculoske Resolve 2018-10-25 Cherrise etal human letal d 09-04 15:10:00 Olya assist to 11:45: [id number] leave home 00 Elimination constipatio Eliminatio Resolve 2018-09-13 Cherrise n n d 09-09 13:20:00 [place] 14:10: [id number] 00 Pain frequent Pain Mgmt Resolve 2018-10-25 Madelaine pain d 08 15:10:00 [facility] 10:59: [id number] 00 Respiratory smoker Respirator Resolve 2018-10-25 Cherrise y d - 15:10:00 [place] 11:50: [id number] 00 Elimination urinary Eliminatio Resolve 2018-10-25 Cherrise urgency n d - 15:10:00 Olya 11:50: [id number] 00 Cardio hypertensio Cardiovasc Resolve 2018-11-11 Cherrise n ular d 10-09 14:00:00 Olya 11:20: [id number] 00 Endo/Sen glucose Endo/Sen Resolve 2018-10-25 Cherrise tolerance d 10-09 15:10:00 [place] problem 11:20: [id number] 00 Elimination urinary Eliminatio Resolve 2018-10-25 Conchita frequency n d 10-16 15:10:00 Shimon, 14:00: [id number] 00 Cardio edema Cardiovasc Resolve 2018-11-11 Cherrise ular d 6- 14:00:00 Olya 11:00: [id number] 00 Safety risk for Safety Resolve 2018-11-01 Conchita hospitaliza d 6-17 14:00:00 daniel Robins 14:30: [id number] 00 Respiratory smoker Respirator Resolve 2018-11-11 Cherrise y d 6-19 14:00:00 Olya 10:25: [id number] 00 Endo/Sen glucose Endo/Sen Resolve 2018-11-11 Cherrise tolerance d 6-19 14:00:00 Olya problem 10:25: [id number] 00 Elimination urinary Eliminatio Resolve 2018-11-11 Cherrise urgency n d 6-19 14:00:00 Olya 10:25: [id number] 00 Elimination urinary Eliminatio Resolve 2018-11-11 Cherrise frequency n d 6-19 14:00:00 Olya 10:25: [id number] 00 Musculoskel requires Musculoske Resolve 2018-12-23 Cherrise etal human letal d 6- 11:00:00 Olya assist to 10:25: [id number] leave home 00 Musculoskel requires Musculoske Resolve 2018-12-23 Kerry etal special letal d 6- 11:00:00 Maria Antonia transportat 18:30: [id number] ion 00 Safety fall risk Safety Resolve 2018-12-13 Cherrise factor d 7- 14:40:00 [place] present 14:45: [id number] 00 Neuro impaired Neuro/Emot Resolve 2018-12-13 Madelaine mullen ion d 7- 14:40:00 Jose Angel pettit 14:00: [id number] 00 Safety risk for Safety Resolve 2018-12-13 Madelaine garciaiza d 7-10 14:40:00 Ingrahm tion 14:00: [id number] 00 Cardio edema Cardiovasc Resolve 2018-12-23 Cherrise ular d 7-15 11:00:00 Olya 11:00: [id number] 00 Respiratory smoker Respirator Resolve 2018-12-23 Cherrise y d 7-15 11:00:00 [place] 11:00: [id number] 00 Endo/Sen glucose Endo/Sen Resolve 2019-01-01 Cherrise tolerance d 7-15 15:00:00 [place] problem 11:00: [id number] 00 Elimination urinary Eliminatio Resolve 2018-12-13 Cherrise urgency n d 7-15 14:40:00 Olya 11:00: [id number] 00 Safety sanitation Safety Resolve 2018-12-13 Cherrise hazards d 7-15 14:40:00 Olya present 11:00: [id number] 00 Elimination urinary Eliminatio Resolve 2018-12-13 Cherrise frequency n d 7 14:40:00 [place] 11:15: [id number] 00 Neuro depressive Neuro/Emot Resolve 2019-01-17 Cherrise feelings ion d 12-02 15:25:00 Olya present 11:15: [id number] 00 Cardio hypertensio Cardiovasc Resolve 2018-12-23 Cherrise n ular d 12-04 11:00:00 [place] 14:40: [id number] 00 Musculoskel knowledge/s Musculoske Resolve 2018-12-23 Cherrise etal kill letal d 12-16 11:00:00 Olya deficit: cg 14:15: [id number] 00 Elimination urinary Eliminatio Resolve 2018-12-23 Cherrise urgency n d 12-20 11:00:00 Olya 10:10: [id number] 00 Neuro depressive Neuro/Emot Unknown Cherrise feelings ion 12-20 [place] present 10:10: [id number] 00 Neuro impaired Neuro/Emot Resolve 2019-01-17 Cherrise decision-ma ion d 12-20 15:25:00 Olya wilver 10:10: [id number] 00 Safety risk for Safety Resolve 2018-12-23 Cherrise hospitaliza d 12-20 11:00:00 [place] tion 10:10: [id number] 00 Sensory impaired Sensory Resolve 2019-01-17 Madelaine verbal d 12-23 15:25:00 Ingrahm communicati 11:00: [id number] on 00 Cardio hypertensio Cardiovasc Resolve 2019-01-01 Cherrise n ular d 8-14 15:00:00 [place] 12:00: [id number] 00 Respiratory smoker Respirator Resolve 2019-01-01 Cherrise y d 8-14 15:00:00 Olya 12:00: [id number] 00 Elimination urinary Eliminatio Resolve 2019-01-01 Cherrise urgency n d 8-14 15:00:00 Olya 12:00: [id number] 00 Neuro anxiety Neuro/Emot Resolve 2019-01-17 Cherrise present ion d 814 15:25:00 [place] 12:00: [id number] 00 Safety risk for Safety Resolve 2019-01-01 Cherrise hospitaliza d 8-14 15:00:00 [place] tion 12:00: [id number] 00 Musculoskel requires Musculoske Unknown Cherrise etal human letal 12-25 [place] assist to 12:00: [id number] leave home 00 Respiratory smoker Respirator Resolve 2019-01-17 Cherrise y d 01-03 15:25:00 Olya 11:45: [id number] 00 Elimination urinary Eliminatio Resolve 2019-01-17 Cherrise urgency n d 01-03 15:25:00 Olya 11:45: [id number] 00 Safety fall risk Safety Resolve 2019-01-06 Cherrise factor d 8 12:25:00 Olya present 11:45: [id number] 00 Safety risk for Safety Resolve 2019-02-12 Cherrise hospitaliza d 01-03 15:15:00 [place] tion 11:45: [id number] 00 Neuro memory Neuro/Emot Resolve 2019-01-17 Cherrise deficit ion d 01-13 15:25:00 Olya needing 11:20: [id number] supervision 00 Elimination urinary Eliminatio Resolve 2019-01-17 Madelaine incontinenc n d 01-17 15:25:00 Ingrahm e 15:25: [id number] 00 Safety fall risk Safety Resolve 2019-01-17 Desiree factor d 9-06 15:25:00 Rashid present 15:25: [id number] 00 Cardio hypertensio Cardiovasc Resolve 2019-01-24 Narciso aguilar ular d 01-20 09:00:00 [place] 11:15: [id number] 00 Safety sanitation Safety Resolve 2019-02-12 Cherrise hazards d 01-20 15:15:00 [place] present 11:15: [id number] 00 Respiratory smoker Respirator Resolve 2019-01-24 Madelaine y d 01-24 09:00:00 Ingrahm 09:00: [id number] 00 Musculoskel transfer Musculoske Active Cherrise etal assistance letal 01-29 [place] required 13:25: [id number] 00 Musculoskel requires Musculoske Active Cherrise etal human letal 01-29 Olya assist to 13:25: [id number] leave home 00 Musculoskel requires Musculoske Active Cherrise etal special letal 01-29 Olya transportat 13:25: [id number] ion 00 Respiratory smoker Respirator Resolve 2019-02-05 Cherrise y d 02-03 15:10:00 Olya 10:00: [id number] 00 Elimination urinary Eliminatio Resolve 2019-02-12 Cherrise urgency n d 02-03 15:15:00 Olya 10:00: [id number] 00 Safety fall risk Safety Resolve 2019-02-12 Cherrise factor d 02-07 15:15:00 [place] present 11:15: [id number] 00 Cardio hypertensio Cardiovasc Resolve 2018-052019-02-19 Narciso aguilar ulanais d 0-04 14:00:00 Olya 11:50: [id number] 00 Respiratory smoker Respirator Resolve 2018-052019-02-19 Gigie y d 0-07 14:00:00 [place] 11:30: [id number] 00 Safety risk for Safety Resolve 2018-052019-03-12 Madelaine stevea d 009 15:00:00 Ingrahm tion 14:00: [id number] 00 Cardio hypertensio Cardiovasc Active 2018-05 Cherrise n ular 0-18 [place] 12:30: [id number] 00 Respiratory smoker Respirator Resolve 2018-052019-03-12 Cherrise y d 0-18 15:00:00 [place] 12:30: [id number] 00 Elimination urinary Eliminatio Resolve 2018-052019-03-12 Cherrise urgency n d 0-18 15:00:00 Olya 12:30: [id number] 00 Respiratory smoker Respirator Active 2018-05 Cherrise y 05-17 Olya 09:40: [id number] 00 Elimination urinary Eliminatio Active 2018-05 Cherrise urgency n 05-17 Olya 09:40: [id number] 00 Safety risk for Safety Active 2018-05 Cherrise hospitaliza 05-17 Olya tion 09:40: [id number] 00 Allergies, Adverse Reactions, Alerts Allergy Allergy [...] n 20 mg n 20 mg 01-26 ,[place] tablet tablet furosemide furosemide 2017- No [place] Unknown Unknown 20 mg 20 mg 01-26 ,[place] tablet tablet losartan losartan 2017- No [place] Unknown Unknown 100 mg 100 mg 01-26 ,[place] tablet tablet metFORMIN metFORMIN No [place] Unknown Unknown 1,000 mg 1,000 mg 01-26 ,[place] tablet tablet Dulera 200 Dulera 200 2018- No [place] Unknown Unknown mcg-5 mcg-5 01-26 Kyle COVARRUBIAS mcg/actuati mcg/actuati on HFA on HFA aerosol aerosol inhaler inhaler amLODIPine amLODIPine 2017- No [place] Unknown Unknown 10 mg 10 mg 01-26 ,[place] tablet tablet lisinopril lisinopril 2017-05- No [place] Unknown Unknown 20 mg 20 mg 02-15 MD,[place] tablet tablet oxyCODONE 5 oxyCODONE 5 No Rafita Unknown Unknown mg tablet mg tablet 2-07 MD,[place] lisinopril lisinopril 2018- No Rafita Unknown Unknown 20 mg 20 mg -15 02-20 MD,[place] tablet tablet lisinopril lisinopril No [...] Unknown Unknown 160 mcg-4.5 160 mcg-4.5 7-16 MD,Simona mcg/actuati mcg/actuati on HFA on HFA aerosol [...]
--- OUTSIDE RECORDS SUMMARY | 2019-05-09 12:31 | XMS REPORT ---
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 01-26 Ingrm infct infct [id number] causing causing diseases diseases classd classd elswhr elswhr Type 2 Type 2 Diagnosis Active Madelaine diabetes diabetes 05-14 [facility] mellitus mellitus [id number] with with diabetic diabetic neuropathy, neuropathy, unsp unsp Essential Essential Diagnosis Active Madelaine (primary) (primary) 05-14 [facility] hypertensio hypertensio [id number] n n Chronic Chronic Diagnosis Active Madelaine obstructive obstructive 05-14 [facility] pulmonary pulmonary [id number] disease, disease, unspecified unspecified G47.33 G47.33 Diagnosis Active Madelaine 05-14 In[facility] [id number] Pain frequent Pain Mgmt Resolve 2018-06-14 Darya pain d 01-26 14:43:00 (Tejas) 09:45: Analilia 00 [id number] Cardio edema Cardiovasc Resolve 2018-02-18 Darya ular d 01-26 13:35:00 (Tejas) 09:45: Analilia 00 [id number] Cardio knowledge/s Cardiovasc Resolve 2018-02-18 Darya kill ular d 01-26 13:35:00 (Tejas) deficit: pt 09:45: Analilia 00 [id number] Respiratory dyspnea Respirator Resolve 2018-04-24 Darya present y d 01-26 15:19:00 (Tejas) 09:45: Analilia 00 [id number] Respiratory CPAP Respirator Resolve 2018-04-24 Quality treatments y d 9-15 15:19:00 Realtime7 in home 09:45: 00 Endo/Sen diabetic Endo/Sen Resolve 2018-02-25 Darya foot care d 9-15 14:00:00 (Tejas) 09:45: Billingsley [id number] Integument surgical Integument Resolve 2018-03-25 Darya wound d 9-15 14:35:00 (Tejas) present 09:45: Billingsley [id number] Integument skin Integument Resolve 2018-03-25 Darya integrity d 9-15 14:35:00 (Tejas) risk 09:45: Billingsley [id number] Integument other wound Integument Resolve 2018-03-25 Quality present d 9-15 14:35:00 Realtime7 09:45: 00 Nutrition nutritional Nutrition Resolve 2018-03-15 Darya restriction d 9-15 15:24:00 (Tejas) s 09:45: Billingsley [id number] Elimination urinary Eliminatio Resolve 2018-03-01 Darya incontinenc n d 9-15 09:00:00 (Tejas) e 09:45: Billingsley 00 [id number] Neuro confusion Neuro/Emot Resolve 2018-11-11 Darya present ion d 9-15 14:00:00 (Tejas) 09:45: Billingsley 00 [id number] Neuro anxiety Neuro/Emot Resolve 2018-11-11 Darya present ion d 9-15 14:00:00 (Tejas) 09:45: Billingsley [id number] Activity ADL Activity Resolve 2018-11-11 Darya assistance d 9-15 14:00:00 (Tejas) required 09:45: Billingsley [id number] Safety sanitation Safety Resolve 2018-10-25 Darya hazards d 9-15 15:10:00 (Tejas) present 09:45: Billingsley [id number] Safety fall risk Safety Resolve 2018-10-25 Darya factor d 9-15 15:10:00 (Tejas) present 09:45: Billingsley [id number] Safety risk for Safety Resolve 2018-10-25 Darya hospitaliza d 9-15 15:10:00 (Tejas) tion 09:45: Billingsley 00 [id number] Safety can be left Safety Resolve 2018-11-11 Darya alone for d 9-15 14:00:00 (Tejas) only short 09:45: Billingsley periods 00 [id number] Medication oral med Meds Resolve 2018-03-15 Darya assistance d 9-15 15:24:00 (Tejas) required 09:45: Billingsley [id number] Medication knowledge/s Meds Resolve 2018-03-15 Darya kill d 9-15 15:24:00 (Tejas) deficit: pt 09:45: Billingsley [id number] Medication potential Meds Resolve 2018-03-15 Darya clinically d 9-15 15:24:00 (Tejas) significant 09:45: Billingsley medication [id number] issue Musculoskel transfer Musculoske Unknown Quality etal assistance letal 01-26 Realtime7 required 09:45: 00 Sensory impaired Sensory Resolve 2018-11-11 Quality verbal d 917 14:00:00 Realtime7 communicati 14:00: on 24 Endo/Sen glucose Endo/Sen Resolve 2018-02-25 Cherrise tolerance d 01-31 14:00:00 Olya problem 13:25: [id number] 00 Nutrition knowledge/s Nutrition Resolve 2018-03-15 Cherrise kill d 01-31 15:24:00 Olya deficit: pt 13:25: [id number] 00 Elimination urinary Eliminatio Resolve 2018-03-01 Cherrise urgency n d 01-31 09:00:00 Helena 13:25: [id number] 00 Elimination urinary Eliminatio Resolve 2018-03-01 Cherrise frequency n d 01-31 09:00:00 Olya 13:25: [id number] 00 Neuro impaired Neuro/Emot Resolve 2018-11-11 Cherrise decision-ma ion d 01-31 14:00:00 Helena wilver 13:25: [id number] 00 Musculoskel requires Musculoske Unknown Cherrise etal human letal 9-20 Helena assist to 13:25: [id number] leave home 00 Cardio hypertensio Cardiovasc Resolve 2018-02-18 Cherrise n ular d 9-24 13:35:00 Hel[place] 13:05: [id number] 00 Musculoskel requires Musculoske Unknown 2017-05 Cherrise etal human letal 0-05 Helena assist to 13:40: [id number] leave home 00 Cardio hypertensio Cardiovasc Resolve 2017-052018-03-25 Cherrise n ular d 0-12 14:35:00 Olya 12:45: [id number] 00 Respiratory smoker Respirator Resolve 2017-052018-04-24 Cherrise y d 0-12 15:19:00 Helena 12:45: [id number] 00 Musculoskel transfer Musculoske Unknown 2017-05 Cherrise etal assistance letal 0-12 Helena required 12:45: [id number] 00 Endo/Sen glucose Endo/Sen Resolve 2017-052018-03-22 Cherrise tolerance d 0-22 15:29:00 Helena problem 13:50: [id number] 00 Elimination urinary Eliminatio Resolve 2017-052018-03-15 Cherrise incontinenc n d 0-22 15:24:00 Olya e 13:50: [id number] 00 Elimination urinary Eliminatio Resolve 2017-052018-03-15 Cherrise urgency n d 0-22 15:24:00 Olya 13:50: [id number] 00 Elimination urinary Eliminatio Resolve 2017-052018-03-15 Cherrise frequency n d 0-22 15:24:00 [place] 13:50: [id number] 00 Endo/Sen glucose Endo/Sen Resolve 2017-052018-03-22 Cherrise testing d 0-29 15:29:00 Olya dependence 13:30: [id number] 00 Nutrition knowledge/s Nutrition Resolve 2017-052018-03-25 Cherrise kill d 1-05 14:35:00 Olya deficit: pt 11:30: [id number] 00 Elimination urinary Eliminatio Resolve 2017-052018-03-22 Cherrise frequency n d 1-05 15:29:00 Olya 11:30: [id number] 00 Pain frequent Pain Mgmt Resolve 2017-052018-06-14 Stephany pain d 05-25 14:43:00 [facility] 14:35: h [id number] 00 Nutrition nutritional Nutrition Resolve 2017-052018-03-25 Stephany restriction d 05-25 14:35:00 Sultan-[facility]os s 14:35: h [id number] 00 Elimination urinary Eliminatio Resolve 2017-052018-04-05 Stephany incontinenc n d 05-25 14:45:00 [facility] e 14:35: h [id number] 00 Elimination urinary Eliminatio Resolve 2017-052018-04-05 Stephany frequency n d 05-25 14:45:00 [facility] 14:35: h [id number] 00 Musculoskel requires Musculoske Unknown 2017-05 Stephany etal special letal 05-25 [facility] transportat 14:35: h [id number] ion 00 Cardio hypertensio Cardiovasc Resolve 2017-052018-04-12 Cherrise n ular d 05-27 13:46:00 Helena 12:00: [id number] 00 Endo/Sen glucose Endo/Sen Resolve 2017-052018-04-05 Cherrise tolerance d 05-27 14:45:00 Olya problem 12:00: [id number] 00 Elimination urinary Eliminatio Resolve 2017-052018-04-05 Cherrise urgency n d 06-01 14:45:00 Helena 12:45: [id number] 00 Elimination urinary Eliminatio Resolve 2017-052018-04-12 Cherrise urgency n d 06-08 13:46:00 Olya 10:55: [id number] 00 Elimination urinary Eliminatio Resolve 2017-052018-04-12 Cherrise frequency n d 06-08 13:46:00 [place] 10:55: [id number] 00 Endo/Sne glucose Endo/Sen Resolve 2017-052018-04-24 Cherrise tolerance d 06-16 15:19:00 Helena problem 12:20: [id number] 00 Elimination urinary Eliminatio Resolve 2017-052018-04-24 Cherrise frequency n d 06-16 15:19:00 [place] 12:20: [id number] 00 Cardio hypertensio Cardiovasc Resolve 2017-052018-04-24 Cherrise n ular d 2- 15:19:00 [place] 10:35: [id number] 00 Elimination urinary Eliminatio Resolve 2017-052018-04-24 Cherrise urgency n d 2 15:19:00 Olya 10:35: [id number] 00 Elimination urinary Eliminatio Resolve 2017-052018-04-24 Stephany incontinenc n d 06-25 15:19:00 [facility] e 15:19: h [id number] 00 Cardio hypertensio Cardiovasc Resolve 2017-052018-06-07 Cherrise n ular d 2-14 13:31:00 [place] 13:15: [id number] 00 Respiratory dyspnea Respirator Active 2017-05 Cherrise present y 06-27 Helena 13:15: [id number] 00 Respiratory CPAP Respirator Active 2017-05 Cherrise treatments y 06-27 Olya in home 13:15: [id number] 00 Respiratory smoker Respirator Resolve 2017-052018-06-03 Cherrise y d 2-14 14:08:00 [place] 13:15: [id number] 00 Elimination urinary Eliminatio Resolve 2017-052018-05-31 Cherrise urgency n d 2-14 14:21:00 Olya 13:15: [id number] 00 Elimination urinary Eliminatio Resolve 2017-052018-05-31 Cherrise frequency n d 2-14 14:21:00 Olya 13:15: [id number] 00 Elimination diarrhea Eliminatio Resolve 2017-052018-05-31 Cherrise n d 2-14 14:21:00 Helena 13:15: [id number] 00 Endo/Sen glucose Endo/Sen Resolve 2017-052018-05-31 Cherrise tolerance d 2-24 14:21:00 Helena problem 13:10: [id number] 00 Infection s/s of Infection Active Stephany infection 05-31 [facility] 14:21: h [id number] 00 Respiratory smoker Respirator Resolve 2018-09-13 Cherrise y d 06-05 13:20:00 Olya 13:35: [id number] 00 Endo/Sen glucose Endo/Sen Resolve 2018-06-21 Cherrise tolerance d 06-05 10:26:00 Helena problem 13:35: [id number] 00 Elimination urinary Eliminatio Resolve 2018-06-14 Cherrise urgency n d 06-05 14:43:00 Helena 13:35: [id number] 00 Elimination urinary Eliminatio Resolve 2018-06-14 Cherrise frequency n d 06-05 14:43:00 Hel[place] 13:35: [id number] 00 Cardio hypertensio Cardiovasc Resolve 2018-09-13 Cherrise n ular d 06-10 13:20:00 Olya 11:00: [id number] 00 Elimination urinary Eliminatio Resolve 2018-06-21 Cherrise urgency n d 06-19 10:26:00 Helena 10:50: [id number] 00 Elimination urinary Eliminatio Resolve 2018-06-21 Stephany frequency n d 06-21 10:26:00 Sultan-[facility]os 10:26: h [id number] 00 Endo/Sen glucose Endo/Sen Resolve 2018-06-28 Cherrise tolerance d 2- 14:32:00 Helena problem 11:25: [id number] 00 Elimination urinary Eliminatio Resolve 2018-06-28 Cherrise urgency n d 2- 14:32:00 Olya 11:25: [id number] 00 Elimination urinary Eliminatio Resolve 2018-06-28 Cherrise frequency n d 2- 14:32:00 Helena 11:50: [id number] 00 Endo/Sen glucose Endo/Sen Resolve 2018-07-12 Cherrise tolerance d 07-03 13:43:00 Helena problem 11:50: [id number] 00 Elimination urinary Eliminatio Resolve 2018-07-12 Cherrise urgency n d 07-08 13:43:00 Helena 12:30: [id number] 00 Neuro depressive Neuro/Emot Resolve 2018-11-11 Cherrise feelings ion d 2 14:00:00 Olya present 12:30: [id number] 00 Elimination urinary Eliminatio Resolve 2018-07-12 Cherrise frequency n d 2-27 13:43:00 Olya 10:45: [id number] 00 Elimination urinary Eliminatio Resolve 2018-07-24 Stephany frequency n d 3-06 12:48:00 [facility] 11:53: h [id number] 00 Endo/Sen glucose Endo/Sen Resolve 2018-09-18 Cherrise tolerance d 3-11 10:59:00 Olya problem 10:15: [id number] 00 Elimination urinary Eliminatio Resolve 2018-07-24 Cherrise urgency n d 3-11 12:48:00 Olya 10:15: [id number] 00 Pain frequent Pain Mgmt Resolve 2018-07-24 Stephany pain d 3-13 12:48:00 [facility] 12:48: h [id number] 00 Elimination urinary Eliminatio Resolve 2018-09-13 Cherrise urgency n d 3-15 13:20:00 Oyla 12:40: [id number] 00 Musculoskel requires Musculoske Unknown Cherrise etal human letal 3-15 Olya assist to 12:40: [id number] leave home 00 Respiratory lung sounds Respirator Resolve 2018-09-13 Christel deficit y d - 13:20:00 Jeb 15:19: [id number] 00 Safety fire risk Safety Resolve 2018-10-25 Christel present d 3 15:10:00 Jeb 15:19: [id number] 00 Elimination urinary Eliminatio Resolve 2018-09-13 Cherrise frequency n d 4-08 13:20:00 Helena 12:50: [id number] 00 Integument surgical Integument Active Cherrise wound 4-24 Olya present 11:45: [id number] 00 Integument skin Integument Active Cherrise integrity 4-24 Olya risk 11:45: [id number] 00 Integument other wound Integument Active Cherrise present 4- Helena 11:45: [id number] 00 Nutrition knowledge/s Nutrition Active Cherrise kill 09-04 Helena deficit: pt 11:45: [id number] 00 Nutrition nutritional Nutrition Active Cherrise restriction 09-04 Olya s 11:45: [id number] 00 Musculoskel transfer Musculoske Resolve 2018-10-25 Cherrise etal assistance letal d 09-04 15:10:00 Olya required 11:45: [id number] 00 Musculoskel requires Musculoske Resolve 2018-10-25 Cherrise etal human letal d 09-04 15:10:00 Olya assist to 11:45: [id number] leave home 00 Elimination constipatio Eliminatio Resolve 2018-09-13 Cherrise n n d 09-09 13:20:00 [place] 14:10: [id number] 00 Pain frequent Pain Mgmt Resolve 2018-10-25 Madelaine pain d 08 [facility] [id number] 00 Respiratory smoker Respirator Resolve 2018-10-25 Cherrise y d - 15:10:00 Helena 11:50: [id number] 00 Elimination urinary Eliminatio Resolve 2018-10-25 Cherrise urgency n d - 15:10:00 Olya 11:50: [id number] 00 Cardio hypertensio Cardiovasc Resolve 2018-11-11 Cherrise n ular d 10-09 14:00:00 Olya 11:20: [id number] 00 Endo/Sen glucose Endo/Sen Resolve 2018-10-25 Cherrise tolerance d 10-09 15:10:00 Helena problem 11:20: [id number] 00 Elimination urinary Eliminatio Resolve 2018-10-25 Conchita frequency n d 10-16 15:10:00 Shimon, 14:00: [id number] 00 Cardio edema Cardiovasc Resolve 2018-11-11 Cherrise ular d 6- 14:00:00 Olya 11:00: [id number] 00 Safety risk for Safety Resolve 2018-11-01 Conchita hospitaliza d 6-17 14:00:00 daniel Robins 14:30: [id number] 00 Respiratory smoker Respirator Resolve 2018-11-11 Cherrise y d 6-19 14:00:00 Olya 10:25: [id number] 00 Endo/Sen glucose Endo/Sen Resolve 2018-11-11 Cherrise tolerance d 6-19 14:00:00 Olya problem 10:25: [id number] 00 Elimination urinary Eliminatio Resolve 2018-11-11 Cherrise urgency n d 6-19 14:00:00 Olya 10:25: [id number] 00 Elimination urinary Eliminatio Resolve 2018-11-11 Cherrise frequency n d 6-19 14:00:00 Olya 10:25: [id number] 00 Musculoskel requires Musculoske Resolve 2018-12-23 Cherrise etal human letal d 6- 11:00:00 Olya assist to 10:25: [id number] leave home 00 Musculoskel requires Musculoske Resolve 2018-12-23 Kerry etal special letal d 6- 11:00:00 Maria Antonia transportat 18:30: [id number] ion 00 Safety fall risk Safety Resolve 2018-12-13 Cherrise factor d 7- 14:40:00 Helena present 14:45: [id number] 00 Neuro impaired Neuro/Emot Resolve 2018-12-13 Madelaine mullen ion d 7- 14:40:00 Jose Angel pettit 14:00: [id number] 00 Safety risk for Safety Resolve 2018-12-13 Madelaine garciaiza d 7-10 14:40:00 Ingrahm tion 14:00: [id number] 00 Cardio edema Cardiovasc Resolve 2018-12-23 Cherrise ular d 7-15 11:00:00 Olya 11:00: [id number] 00 Respiratory smoker Respirator Resolve 2018-12-23 Cherrise y d 7-15 11:00:00 [place] 11:00: [id number] 00 Endo/Sen glucose Endo/Sen Resolve 2019-01-01 Cherrise tolerance d 7-15 15:00:00 Helena problem 11:00: [id number] 00 Elimination urinary Eliminatio Resolve 2018-12-13 Cherrise urgency n d 7-15 14:40:00 Olya 11:00: [id number] 00 Safety sanitation Safety Resolve 2018-12-13 Cherrise hazards d 7-15 14:40:00 Olya present 11:00: [id number] 00 Elimination urinary Eliminatio Resolve 2018-12-13 Cherrise frequency n d 7 14:40:00 [place] 11:15: [id number] 00 Neuro depressive Neuro/Emot Resolve 2019-01-17 Cherrise feelings ion d 12-02 15:25:00 Olya present 11:15: [id number] 00 Cardio hypertensio Cardiovasc Resolve 2018-12-23 Cherrise n ular d 12-04 11:00:00 [place]ena 14:40: [id number] 00 Musculoskel knowledge/s Musculoske Resolve 2018-12-23 Cherrise etal kill letal d 12-16 11:00:00 Olya deficit: cg 14:15: [id number] 00 Elimination urinary Eliminatio Resolve 2018-12-23 Cherrise urgency n d 12-20 11:00:00 Olya 10:10: [id number] 00 Neuro depressive Neuro/Emot Unknown Cherrise feelings ion 12-20 Helena present 10:10: [id number] 00 Neuro impaired Neuro/Emot Resolve 2019-01-17 Cherrise decision-ma ion d 12-20 15:25:00 Olya wilver 10:10: [id number] 00 Safety risk for Safety Resolve 2018-12-23 Cherrise hospitaliza d 12-20 11:00:00 Helena tion 10:10: [id number] 00 Sensory impaired Sensory Resolve 2019-01-17 Madelaine verbal d 12-23 15:25:00 Ingrahm communicati 11:00: [id number] on 00 Cardio hypertensio Cardiovasc Resolve 2019-01-01 Cherrise n ular d 8-14 15:00:00 [place] 12:00: [id number] 00 Respiratory smoker Respirator Resolve 2019-01-01 Cherrise y d 8-14 15:00:00 Olya 12:00: [id number] 00 Elimination urinary Eliminatio Resolve 2019-01-01 Cherrise urgency n d 8-14 15:00:00 Olya 12:00: [id number] 00 Neuro anxiety Neuro/Emot Resolve 2019-01-17 Cherrise present ion d 8 15:25:00 Helena 12:00: [id number] 00 Safety risk for Safety Resolve 2019-01-01 Cherrise hospitaliza d 8 15:00:00 Helena tion 12:00: [id number] 00 Musculoskel requires Musculoske Unknown Cherrise etal human letal 12-25 Helena assist to 12:00: [id number] leave home 00 Respiratory smoker Respirator Resolve 2019-01-17 Cherrise y d 01-03 15:25:00 Olya 11:45: [id number] 00 Elimination urinary Eliminatio Resolve 2019-01-17 Cherrise urgency n d 01-03 15:25:00 Olya 11:45: [id number] 00 Safety fall risk Safety Resolve 2019-01-06 Cherrise factor d 01-03 12:25:00 Olya present 11:45: [id number] 00 Safety risk for Safety Resolve 2019-02-12 Cherrise hospitaliza d 01-03 15:15:00 Helena tion 11:45: [id number] 00 Neuro memory Neuro/Emot Active Cherrise deficit ion 01-13 Helena needing 11:20: [id number] supervision 00 Elimination urinary Eliminatio Resolve 2019-01-17 Madelaine incontinenc n d 01-17 15:25:00 Ingrahm e 15:25: [id number] 00 Safety fall risk Safety Resolve 2019-01-17 Desiree factor d 01-17 15:25:00 Rashid present 15:25: [id number] 00 Cardio hypertensio Cardiovasc Resolve 2019-01-24 Narciso aguilar ular d 01-20 09:00:00 [place]ena 11:15: [id number] 00 Safety sanitation Safety Resolve 2019-02-12 Cherrise hazards d 01-20 15:15:00 Helena present 11:15: [id number] 00 Respiratory smoker Respirator Resolve 2019-01-24 Madelaine y d 01-24 09:00:00 Ingrahm 09:00: [id number] 00 Musculoskel transfer Musculoske Active Cherrise etal assistance letal 01-29 Olya required 13:25: [id number] 00 Musculoskel requires Musculoske Active Cherrise etal human letal 01-29 Helena assist to 13:25: [id number] leave home 00 Musculoskel requires Musculoske Active Cherrise etal special letal 01-29 Helena transportat 13:25: [id number] ion 00 Respiratory smoker Respirator Resolve 2019-02-05 Cherrise y d 02-03 15:10:00 Helena 10:00: [id number] 00 Elimination urinary Eliminatio Resolve 2019-02-12 Cherrise urgency n d 02-03 15:15:00 Helena 10:00: [id number] 00 Safety fall risk Safety Resolve 2019-02-12 Cherrise factor d 9 15:15:00 Olya present 11:15: [id number] 00 Cardio hypertensio Cardiovasc Resolve 2018-052019-02-19 Narciso hernandez d 0-04 14:00:00 Helena 11:50: [id number] 00 Respiratory smoker Respirator Resolve 2018-052019-02-19 Narciso y d 0-07 14:00:00 Hel[place] 11:30: [id number] 00 Safety risk for Safety Resolve 2018-052019-03-12 Madelaine navarrete d 0-09 15:00:00 Ingrahm tion 14:00: [id number] 00 Cardio hypertensio Cardiovasc Resolve 2018-052019-03-19 Cherrise n ular d 0-18 14:00:00 [place]ena 12:30: [id number] 00 Respiratory smoker Respirator Resolve 2018-052019-03-12 Cherrise y d 018 15:00:00 [place]ena 12:30: [id number] 00 Elimination urinary Eliminatio Resolve 2018-052019-03-12 Cherrise urgency n d 0-18 15:00:00 Olya 12:30: [id number] 00 Respiratory smoker Respirator Resolve 2018-052019-03-19 Cherrise y d 104 14:00:00 Olya 09:40: [id number] 00 Elimination urinary Eliminatio Resolve 2018-052019-03-19 Cherrise urgency n d 05-17 14:00:00 Olya 09:40: [id number] 00 Safety risk for Safety Active 2018-05 Cherrise hospitaliza 05-17 Helena tion 09:40: [id number] 00 Safety fall risk Safety Active 2018-05 Madelaine factor 05-19 Ingrahm present 14:00: [id number] 00 Allergies, Adverse Reactions, Alerts Allergy Allergy [...] Unknown Unknown 100 mg 100 mg 01-26 ,[place] tablet tablet metFORMIN metFORMIN No [place] Unknown Unknown 1,000 mg 1,000 mg 01-26 ,Kyle tablet tablet Dulera 200 Dulera 200 2018- No [place] Unknown Unknown mcg-5 mcg-5 01-26-16 Kyle COVARRUBIAS mcg/actuati mcg/actuati on HFA on HFA aerosol aerosol inhaler inhaler amLODIPine amLODIPine 2017- No [place] Unknown Unknown 10 mg 10 mg 9-15 10-15 MD,[place] tablet tablet lisinopril lisinopril 2017-05- No [place] Unknown Unknown 20 mg 20 mg 0- 02-15 MD,[place] tablet tablet oxyCODONE 5 oxyCODONE 5 No [...]
[2019-05-09 12:44] LABS: ALT 20 U/L (7-52); AST 22 U/L (13-39); Albumin 3.6 g/dL (3.2-5.2); Albumin/Globulin Ratio 1.2 (1-3); Alkaline Phosphatase 91 U/L (34-104); Blood Urea Nitrogen 64 mg/dL (6-24); CO2 Carbon Dioxide 26 mmol/L (22-32); Calcium 8.8 mg/dL (8.6-10.3); Chloride 103 mmol/L (101-111); EGFR African American 43.9 (>60); EGFR Non-African American 36.2 (>60); Globulin 3.1 g/dL (2-4); Glucose 174 mg/dL (70-100); Sodium 137 mmol/L (135-145); Total Protein 6.7 g/dL (6.4-8.9)
[2019-05-09 12:46] LABS: Anion Gap 8 mmol/L (2-11); Potassium 5.5 mmol/L (3.5-5.0); Troponin I 0.08 ng/mL (<0.03)
[2019-05-09] MEDS ORDERED: Morphine 4 MG/ML VIAL (1 ml) 4 MG/ML VIAL IV ONE (13:46)
[2019-05-09] MEDS ORDERED: Piperacillin/Tazobac ADVAN(*) 3.375 GM in NS 0.9% 100 ML* 100 ML IVPB ONE (15:31)
[2019-05-09 19:54] VITALS: BP 105/74
== END 2019-05-09 20:21 | disposition short-term general hospital (02) ==
LOC: ED 11:48
DX: S72.492A Other fracture of lower end of left femur, initial encounter for closed fracture (principal); L03.116 Cellulitis of left lower limb; I50.9 Heart failure, unspecified; W18.30XA Fall on same level, unspecified, initial encounter; Y92.129 Unspecified place in nursing home as the place of occurrence of the external cause; E11.9 Type 2 diabetes mellitus without complications; I11.0 Hypertensive heart disease with heart failure; J44.9 Chronic obstructive pulmonary disease, unspecified; Z89.432 Acquired absence of left foot; Z87.891 Personal history of nicotine dependence; Z79.899 Other long term (current) drug therapy
CPT/HCPCS: 36415; 71045; 80053; 83605; 83880; 84484; 85025; 85610; 85730; 87040; 93005; 96365; 96375; 99283; J2270; J2543